=== PATIENT | male | born 1965 | race Caucasian/White ===

== ENCOUNTER 2017-12-31 09:26 | Emergency (ER) | payer SELFPAY ==
--- OUTSIDE RECORDS SUMMARY | 2017-12-31 09:38 | XMS REPORT | Clinical Summary ---
:1965 Author Organization [facility] Address [address] [place] [address] Phone Care Team Providers Name Role Phone Unavailable Primary Care Provider Unavailable Allergies No Known Allergies Current Medications Prescription Sig. Disp. Refills Start Date End Date Status methadone Take 120 mg by Active (DOLOPHINE) 10 MG mouth daily. tabletIndications: Opioid Withdrawal Symptoms aspirin 81 MG Take 81 mg by Active chewable tablet mouth daily. ranitidine (ZANTAC) Take 150 mg by Active 150 MG tablet mouth 2 (two) times daily. atorvastatin Take 1 tablet 30 tablet 11 04/08/2017 Active (LIPITOR) 80 MG (80 mg total) 8 tablet by mouth daily. carvedilol (COREG) Take 1 tablet 60 tablet 04/07/2017 Active 6.25 MG tablet (6.25 mg 8 total) by mouth 2 (two) times daily with breakfast and dinner. lisinopril Take 1 tablet 30 tablet 11 04/08/2017 Active (PRINIVIL,ZESTRIL) (2.5 mg total) 8 2.5 MG tablet by mouth daily. spironolactone Take 1 tablet 30 tablet 11 04/08/2017 Active (ALDACTONE) 25 MG (25 mg total) 8 tablet by mouth daily. clopidogrel (PLAVIX) Take 1 tablet 30 tablet 04/07/2017 Active 75 mg tablet (75 mg total) 8 by mouth daily. furosemide (LASIX) Take 1 tablet 30 tablet 11 04/08/2017 Discontinued 20 MG tablet (20 mg total) 7 by mouth daily. docusate sodium Take 1 capsule 60 capsule 0 04/16/2017 (COLACE) 100 MG (100 mg total) 8 capsule by mouth 2 (two) times daily for 30 days. polyethylene glycol Take 17 g by 255 g 0 04/16/2017 (GLYCOLAX) 17 mouth daily 7 gram/dose powder for 3 days. furosemide (LASIX) Take 2 tablets 60 tablet 2 04/17/2017 20 MG tablet (40 mg total) 8 by mouth daily for 30 days. 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[facility]) 04/04/2017 GERD (gastroesophageal reflux disease) 04/04/2017 Chronic combined systolic and diastolic CHF (congestive heart failure) 2016 ([facility]) Resolved Problems Problem Noted Date Resolved Date Cardiogenic shock ([facility]) 04/04/2017 04/16/2017 Encounters Date Type Specialty Care Team Description 04/16/2017 Office Visit Cardiology John Hankins, 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) ([facility]) (Primary Dx) 04/04/2017 - Hospital Encounter Cardiology Blayne Soto, ST elevation 04/07/2017 myocardial infarction involving left anterior descending (LAD) coronary artery ([facility]);Cardiogenic shock ([facility]);Hypotension, unspecified hypotension type;Coronary artery disease involving [place] heart with angina pectoris and documented spasm, unspecified vessel or lesion type ([facility]);SOB (shortness of breath);Chest pain due to myocardial ischemia, unspecified ischemic chest pain type;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[facility]) 04/04/2017 Orders Only General Internal Medicine 04/04/2017 Procedure Pass 04/04/2017 Surgery Blayne Soto L CATH & PCI MD after 12/30/2016 Family History Medical History Relation Name Comments Cancer Maternal Aunt Cancer Mother Relation Name Status Comments Maternal Aunt Mother Social History Tobacco Use Types Packs/Day Years Used Date Current Every Day Smoker Smokeless Tobacco: Former User Tobacco Cessation: Ready to Quit: Yes; Counseling Given: Yes Alcohol Use Drinks/Week oz/Week Comments No Sex Assigned at Date Recorded Not on file Last Filed Vital Signs Vital Sign Reading Time Taken Blood Pressure 104/69 04/16/2017 1:45 PM CLERICAL METHODS ANALYST Pulse 66 04/16/2017 1:45 PM CLERICAL METHODS ANALYST Temperature 36.9 C (98.5 F) 04/16/2017 1:45 PM CLERICAL METHODS ANALYST Respiratory Rate 16 04/16/2017 1:45 PM CLERICAL METHODS ANALYST Oxygen Saturation 100% 04/16/2017 1:45 PM CLERICAL METHODS ANALYST Inhaled Oxygen Concentration - - Weight 83.3 kg (183 lb 11.2 oz) 04/16/2017 1:45 PM CLERICAL METHODS ANALYST Height 182.9 cm (6') 04/16/2017 1:45 PM CLERICAL METHODS ANALYST Body Mass Index 24.91 04/16/2017 1:45 PM CLERICAL METHODS ANALYST Plan of Treatment Health Maintenance Due Date Last Done Comments INFLUENZA VACCINE 02/03/2018 Implants Implanted Type Area Hat Band Attacher Device Identifier Expiration Model / Date Serial / Lot Promus Premier Stents- N/A: [place] [id number] 12/11/2017 [id number] / Implanted: Qty: 1 on 04/04/2017 by Blayne Soto MD Coronar Coronary SCIENTIFIC / y [id number] Procedures Procedure Name Priority Date/Time Associated Diagnosis Comments L CATH & PCI 04/04/2017 10:20 AM CLERICAL METHODS ANALYST cp after 12/30/2016 Results EKG-SCANNED (06/17/2017 11:20 AM)Only the most recent of2 resultswithin the time period is included.B N P (04/16/2017 2:59 PM)Only the most recent of2 resultswithin the time period is included. Component Value Ref Range BNP 497 (H) 0 - 100 pg/mL Specimen Performing Laboratory Blood [address] [address] Magnesium (04/16/2017 2:59 PM)Only the most recent of6 resultswithin the time period is included. Component Value Ref Range Magnesium 1.8 1.6 - 2.6 mg/dL Specimen Performing Laboratory Blood [address] [address] Basic Metabolic Panel (04/16/2017 2:59 PM)Only the most recent of3 resultswithin the time period is included. Component Value Ref Range Sodium 137 136 - 145 meq/L Potassium 4.0 3.5 - 5.1 meq/L Chloride 101 98 - 107 meq/L CO2 28 22 - 29 meq/L BUN 15 7 - 21 mg/dL Creatinine 1.08 0.57 - 1.25 mg/dL Glucose 81 70 - 105 mg/dL Calcium 9.7 8.4 - 10.2 mg/dL EGFR 72Comment: ESTIMATED GFR IS NOT ACCURATE mL/min/1.73 sq m CREATININE CLEARANCE IN PREDICTING GLOMERULAR FILTRATION RATE. ESTIMATED GFR IS NOT APPLICABLE FOR DIALYSIS PATIENTS. Specimen Performing Laboratory Blood [facility] [address] [address] VASCULAR DIAGRAM -SCAN (04/10/2017 2:22 PM)Only the most recent of2 resultswithin the time period is included.RHYTHM STRIP - SCAN (04/09/2017 9:20 AM)CARDIAC CATH REPORT - SCAN (04/08/2017 8:30 PM)ECG 12 lead (04/07/2017 6: 56 AM)Only the most recent of4 resultswithin the time period is included. Specimen Performing Laboratory GE MUSE Narrative Ventricular Rate 77 BPM Atrial Rate 77 BPM P-R Interval 182 ms QRS Duration 90 ms Q-T Interval 440 ms QTC Calculation(Bazett) 497 ms P Jackson 56 degrees R Jackson 46 degrees T Jackson 122 degrees Sinus rhythm with Premature atrial complexes Low voltage QRS Cannot rule out Anteroseptal infarct (cited on or before 05-APR-2017) T wave abnormality, consider lateral ischemia Abnormal ECG When compared with ECG of 06-APR-2017 05:27, Serial changes of Anteroseptal infarct Present Confirmed by Chester Smith Alireaz ([id number]) on 04/09/2017 5:56:42 PM Procedure Note Interface, External Ris In - 04/09/2017 5:56 PM CLERICAL METHODS ANALYST Ventricular Rate 77 BPM Atrial Rate 77 BPM P-R Interval 182 ms QRS Duration 90 ms Q-T Interval 440 ms QTC Calculation(Bazett) 497 ms P Jackson 56 degrees R Jackson 46 degrees T Jackson 122 degrees Sinus rhythm with Premature atrial complexes Low voltage QRS Cannot rule out Anteroseptal infarct (cited on or before 05-APR-2017) T wave abnormality, consider lateral ischemia Abnormal ECG When compared with ECG of 06-APR-2017 05:27, Serial changes of Anteroseptal infarct Present Confirmed by Chester Smith Alireaz ([id number]) on 04/09/2017 5:56:42 PM Troponin I (04/07/2017 3:44 AM)Only the most recent of5 resultswithin the time period is included. Component Value Ref Range Troponin I 3.39 (HH) 0.00 - 0.03 ng/mL Specimen Performing Laboratory Blood - Arm, [address] [address] Narrative Troponin I (TnI) levels must be interpreted in the context of the presenting symptoms and the clinical findings. Elevated TnI levels indicate myocardial damage, but are not specific for ischemic heart disease. Elevated TnI levels are seen in patients with other cardiac conditions (including myocarditis and congestive heart failure), and slight TnI elevations occur in patients with other conditions, including sepsis, renal failure, acidosis, acute neurological disease, and persistent tachyarrhythmia. CBC (Hemogram only) (04/07/2017 3:44 AM)Only the most recent of2 resultswithin the time period is included. Component Value Ref Range WBC 12.6 (H) 3.5 - 10.5 K/L RBC 3.85 (L) 4.63 - 6.08 M/L Hemoglobin 10.9 (L) 13.7 - 17.5 GM/DL Hematocrit 34.2 (L) 40.1 - 51.0 % MCV 88.8 79.0 - 92.2 fL MCH 28.3 25.7 - 32.2 pg MCHC 31.9 (L) 32.3 - 36.5 GM/DL RDW 15.5 (H) 11.6 - 14.4 % Platelets 276 150 - 450 K/CU MM MPV 10.9 9.4 - 12.4 fL nRBC 0 0 - 0 /100 WBC Specimen Performing Laboratory Blood - Arm, [address] [address] ECHOCARDIOGRAM REPORT - SCAN (04/05/2017 11:51 AM)Only the most recent of2 resultswithin the time period is included.Echo w contrast limited study (2016 9:37 AM) Component Value Ref Range Ejection Fraction Specimen Performing Laboratory [facility] ECHO HEARTLAB MKCKESSON CPACS Narrative Transthoracic Echocardiography Report (TTE) Demographics Patient NameANAHY PONCE Date of Study 04/05/2017 Visit [id number] Unknown Room Number 6108 Number Date of 1965Referring Physician Blayne Soto MD 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 Clinical History Hypertension HGB 9.5 HCT 30.1 % Contrast Medium: Definity. Amount - 3 ml Height: 72 inches Weight: 88.45 kg (195 lbs) BSA: 2.11 m^2 BMI: 26.45 kg/m^2 HR: 92 bpm BP: 134/77 mmHg Summary Limited 2D exam (no Doppler) to address study indication (LV thrombus). Full study was done on 04-04-17. 1. The left ventricle is chamber size (by vol index) is normal. No evidence of LV hypertrophy. Regional wall motion abnormalities corresponding to proximal LAD disease. No thrombus is visualized. Global LV systolic function moderately reduced. LVEF by Soto's method of disk assessment is moderately reduced (35-39%). LA size is moderately enlarged (42-48 ml/m2). 2. The right ventricular chamber size and systolic function are within normal limits. RA cavity size is normal. Unable to estimate peak systolic PA pressure. Previous Study Compared to the previous study there was no significant change. Signature Findings Left Ventricle Limited 2D exam (no Doppler) to address study indication (LV thrombus). Full study was done on 04-04-17. No evidence of LV hypertrophy. LV endocardium is adequately visualized with IV ultrasound enhancing agent. The following segment(s) appear akinetic : apex, all apical, mid anterior and antro- septal. All other segments contract normally. No thrombus is visualized. Global LV systolic function moderately reduced. LVEF by Soto's method of disk assessment is moderately reduced (35-39%). The LVEF was measured using Soto's bi-plane method of disk . The left ventricle is chamber size (by vol index) is normal (male - LVED vol - 34-74ml/m2). Left AtriumLA size is moderately enlarged (42-48 ml/m2 ) . Right VentricleThe right ventricular chamber size and systolic function are within normal limits. Right Atrium RA cavity size is normal . Aortic Valve Normal AoV structure. Mitral Valve Mild MV leaflet thickening. Tricuspid ValveTV is not well visualized; likely normal based on available views. Unable to estimate peak systolic PA pressure. Pulmonic Valve PV is not well visualized. AortaAortic root size (SInus of Valsalva diameter) is normal . PericardiumNo pericardial effusion is visualized based on limited views. IVC/SVC/PA/PV/PleuralThe inferior vena cava is not visualized. The estimated RA pressure by IVC dynamics indeterminate . Chambers/Structures Left Atrium LA Volume: 99.75 ml LA Area: 27.53 cm^ 2 LA Vol. 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 Clinical History Hypertension HGB 9.5 HCT 30.1 % Contrast Medium: Definity. Amount - 3 ml Height: 72 inches Weight: 88.45 kg (195 lbs) BSA: 2.11 m^2 BMI: 26.45 kg/m^2 HR: 92 bpm BP: 134/77 mmHg Summary Limited 2D exam (no Doppler) to address study indication (LV thrombus). Full study was done on 04-04-17. 1. The left ventricle is chamber size (by vol index) is normal. No evidence of LV hypertrophy. Regional wall motion abnormalities corresponding to proximal LAD disease. No thrombus is visualized. Global LV systolic function moderately reduced. LVEF by Soto's method of disk assessment is moderately reduced (35-39%). LA size is moderately enlarged (42-48 ml/m2). 2. The right ventricular chamber size and systolic function are within normal limits. RA cavity size is normal. Unable to estimate peak systolic PA pressure. Previous Study Compared to the previous study there was no significant change. Signature Findings Left Ventricle Limited 2D exam (no Doppler) to address study indication (LV thrombus). Full study was done on 04-04-17. No evidence of LV hypertrophy. LV endocardium is adequately visualized with IV ultrasound enhancing agent. The following segment(s) appear akinetic : apex, all apical, mid anterior and antro- septal. All other segments contract normally. No thrombus is visualized. Global LV systolic function moderately reduced. LVEF by Soto's method of disk assessment is moderately reduced (35-39%). The LVEF was measured using Soto's bi-plane method of disk . The left ventricle is chamber size (by vol index) is normal (male - LVED vol - 34-74ml/m2). Left Atrium LA size is moderately enlarged (42-48 ml/m2) . Right Ventricle The right ventricular chamber size and systolic function are within normal limits. Right Atrium RA cavity size is normal . Aortic Valve Normal AoV structure. Mitral Valve Mild MV leaflet thickening. Tricuspid Valve TV is not well visualized; likely normal based on available views. Unable to estimate peak systolic PA pressure. Pulmonic Valve PV is not well visualized. Aorta Aortic root size (SInus of Valsalva diameter) is normal . Pericardium No pericardial effusion is visualized based on limited views. IVC/SVC/PA/PV/Pleural The inferior vena cava is not visualized. The estimated RA pressure by IVC dynamics indeterminate . Chambers/Structures Left Atrium LA Volume: 99.75 ml LA Area: 27.53 cm^2 LA Vol. Index: 47 ml/m^2 Left Ventricle LV Septum Diastolic: 1.06 cm LV PW Diastolic: 1.04 cm LVEDV Soto's:129.41 ml LVESV Soto's:80.53 ml LVEF Soto's: 37.8 % LVEDVI: 61 ml/m^2 LVESVI: 38 ml/m^2 Aorta Ao Root S of [place].: 3.29 cm Comprehensive metabolic panel (04/05/2017 4:42 AM)Only the most recent of2 resultswithin the time period is included. Component Value Ref Range Protein, Total 6.9 6.0 - 8.3 gm/dL Albumin 3.5 3.5 - 5.0 g/dL Alkaline Phosphatase 118 40 - 150 U/L Total Bilirubin 0.8 0.2 - 1.2 mg/dL Sodium 138 136 - 145 meq/L Potassium 3.9 3.5 - 5.1 meq/L Chloride 107 98 - 107 meq/L CO2 23 22 - 29 meq/L BUN 17 7 - 21 mg/dL Creatinine 0.80 0.57 - 1.25 mg/dL Glucose 108 (H) 70 - 105 mg/dL Calcium 8.8 8.4 - 10.2 mg/dL AST 45 (H) 5 - 34 U/L ALT 17 6 - 55 U/L EGFR 102Comment: ESTIMATED GFR IS NOT ACCURATE mL/min/1.73 sq m CREATININE CLEARANCE IN PREDICTING GLOMERULAR FILTRATION RATE. ESTIMATED GFR IS NOT APPLICABLE FOR DIALYSIS PATIENTS. Specimen Performing Laboratory Blood [facility] [address] [address] XR chest 1 view portable / bedside (04/05/2017 4:41 AM)Only the most recent of2 resultswithin the time period is included. Specimen Performing Laboratory GE RIS Narrative FINAL REPORT RAD, CHEST, 1 VIEW, NON DEPT INDICATION: IABP COMPARISON: Prior day's exam FINDINGS: Portable frontal view of the chest. IMPRESSION: Support Lines: Stable positioning of intra-aortic balloon pump marker projecting over the aortic arch. Lungs and pleura: Congestive interstitial changes, right greater than left, are stable. No new effusion. No pneumothorax. Heart and mediastinum: No interval change in the appearance of the mediastinal contours. Additional findings: None. Signed: JR Fuentes Robert MD Report Verified Date/Time:04/05/2017 05:07:01 Reading Location: [facility] C013Y CT Body Reading Room Procedure Note Interface, External Ris In - 04/05/2017 5:11 AM CLERICAL METHODS ANALYST FINAL REPORT RAD, CHEST, 1 VIEW, NON DEPT INDICATION: IABP COMPARISON: Prior day's exam FINDINGS: Portable frontal view of the chest. IMPRESSION: Support Lines: Stable positioning of intra-aortic balloon pump marker projecting over the aortic arch. Lungs and pleura: Congestive interstitial changes, right greater than left, are stable. No new effusion. No pneumothorax. Heart and mediastinum: No interval change in the appearance of the mediastinal contours. Additional findings: None. Signed: JR Fuentes Robert MD Report Verified Date/Time: 04/05/2017 05:07:01 Reading Location: [facility] C013Y CT Body Reading Room Iron, TIBC, % sat. (without ferritin) (04/05/2017 3:26 AM) Component Value Ref Range Iron 16 (L) 40 - 160 ug/dL TIBC 223 (L) 250 - 450 ug/dL Iron % Saturation 7 (L) 20 - 55 % Specimen Performing Laboratory Blood [facility] [address] [place] [address] CBC with platelet count + automated diff (04/05/2017 3:26 AM)Only the most recent of2 resultswithin the time period is included. Component Value Ref Range WBC 13.4 (H) 3.5 - 10.5 K/L RBC 3.33 (L) 4.63 - 6.08 M/L Hemoglobin 9.5 (L) 13.7 - 17.5 GM/DL Hematocrit 30.1 (L) 40.1 - 51.0 % MCV 90.4 79.0 - 92.2 fL MCH 28.5 25.7 - 32.2 pg MCHC 31.6 (L) 32.3 - 36.5 GM/DL RDW 15.7 (H) 11.6 - 14.4 % Platelets 252 150 - 450 K/CU MM MPV 11.3 9.4 - 12.4 fL nRBC 0 0 - 0 /100 WBC % Neutros 86 % % Lymphs 8 % % Monos 5 % % Eos 0 % % Baso 0 % # Neutros 11.52 (H) 1.78 - 5.38 K/L # Lymphs 1.07 (L) 1.32 - 3.57 K/L # Monos 0.63 0.30 - 0.82 K/L # Eos 0.06 0.04 - 0.54 K/L # Baso 0.06 0.01 - 0.08 K/L Immature Granulocytes-Relative 0 0 - 1 % Specimen Performing Laboratory Blood [address] [address] CBC with platelet count + automated diff (04/05/2017 3:26 AM)Only the most recent of2 resultswithin the time period is included. Specimen Performing Laboratory Blood Narrative The following orders were created for panel order CBC with platelet count + automated diff. Procedure Abnormality Status --------- ------ CBC with platelet count ...[[id number]]AbnormalFinal result Please view results for these tests on the individual orders. Ferritin (04/05/2017 3:26 AM) Component Value Ref Range Ferritin 141 5 - 275 ng/mL Specimen Performing Laboratory Blood [address] [address] Creatine Kinase (CK), Total and MB (04/05/2017 3:26 AM)Only the most recent of3 resultswithin the time period is included. Component Value Ref Range Total CK 228 (H) 29 - 200 U/L CK-MB 18.7 (H) 0.0 - 6.6 ng/mL MB Relative Index 8.2 % Specimen Performing Laboratory Blood [facility] [address] [address] Narrative CK-MB Reference Range: <6.7Normal 6.7-10.0Borderline >10.0 Abnormal Transthoracic 2D echo w/ doppler (cw/pw/color) (04/04/2017 11:45 AM) Component Value Ref Range Ejection Fraction Specimen Performing Laboratory [facility] ECHO HEARTLAB MKCKESSON CPACS Narrative Transthoracic Echocardiography Report (TTE) Demographics Patient Name ANAHY PONCE Date of Study 04/04/2017 [id number] Male Visit Number [id number] Accession Number [id number] Room Number SCLP Date of Birth1965Referring Physician Blayne Soto MD Age51 year(s)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 Clinical History HTN HGB 10.5 HCT 33.8 % Height: 72 inches Weight: 88.45 kg (195 lbs) BSA: 2.11 m^2 BMI: 26.45 kg/m^2 HR: 74 bpm BP: 128/66 mmHg Summary Global LV systolic function moderately reduced . The following segment(s) appear akinetic: all apical segments, mid septum. No evidence of LV hypertrophy. Aryt-wp-[id number] mitral regurgitation. LA size is severely enlarged (>48 ml/m2) . Estimated peak systolic PA pressure is 35-40 mmHg . The estimated RA pressure by IVC dynamics 5-10mmHg . Previous Study No prior exam available for comparison. Signature Findings Left Ventricle The left ventricle is chamber size (by PSLAX dimension) is normal (male - LVIDd 4.2-5.8cm) . No evidence of LV hypertrophy. The following segment(s) appear akinetic: all apical segments, mid septum. . The other segments contract normally. Global LV systolic function moderately reduced . Estimated LVEF by qualitative assessment is moderately reduced (35-39%) . Left AtriumLA size is severely enlarged (>48 ml/m2) . Right VentricleNormal right ventricle structure and function. Right Atrium Normal right atrium. Aortic Valve Normal AoV structure. Mitral Valve Mild MV leaflet thickening. Kkvx-cg-emrfofnm mitral regurgitation. Tricuspid ValveA trace of tricuspid regurgitation. Estimated peak systolic PA pressure is 35-40 mmHg . Pulmonic Valve Normal PV structure appears normal by available views. A trace of pulmonary regurgitation. AortaAortic root size (SInus of Valsalva diameter) is normal . PericardiumNo evidence of pericardial effusion. IVC/SVC/PA/PV/PleuralThe estimated RA pressure by IVC dynamics 5-10mmHg . Chambers/Structures Left Atrium LA Dimension: 4.27 cmLA Area: 30.82 cm^2 LA Volume: 124 ml LA Vol. Index: 59 ml/m^2 Left Ventricle LVIDd: 4.79 cm LV Septum Diastolic: 1.07 cm LV PW Diastolic: 1 cm LVOT Diameter: 2.05 cm Aorta Ao Root S of Caroline.: 3.23 cm Doppler/Quantitative Measurements LVOT Peak Velocity: 0.87 m/s Peak Gradient: 3.01 mmHg Mean Velocity: 0.54 m/s Mean Gradient: 1.4 mmHg LVOT Diameter: 2.05 cmLVOT VTI: 14.49 cm LVOT Area: 3.3 cm^2 LVOT SV:47.8 ml LVOT CO: 3.54 l/min LVOT CI: 1.68 l/min/m^2 Procedure Note Interface, External Ris In - 04/04/2017 3:47 PM CLERICAL METHODS ANALYST Transthoracic Echocardiography Report (TTE) Demographics Patient Name ANAHY PONCE Date of Study 04/04/2017 Gender Male Visit Number [id number] Race Unknown Accession Number [id number] Room Number SCLP Date of 1965 Referring Physician Blayne Soto MD 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 Clinical History HTN HGB 10.5 HCT 33.8 % Height: 72 inches Weight: 88.45 kg (195 lbs) BSA: 2.11 m^2 BMI: 26.45 kg/m^2 HR: 74 bpm BP: 128/66 mmHg Summary Global LV systolic function moderately reduced . The following segment(s) appear akinetic: all apical segments, mid septum. No evidence of LV hypertrophy. Txks-fe-wznmdzmc mitral regurgitation. LA size is severely enlarged (>48 ml/m2) . Estimated peak systolic PA pressure is 35-40 mmHg . The estimated RA pressure by IVC dynamics 5-10mmHg . Previous Study No prior exam available for comparison. Signature Findings Left Ventricle The left ventricle is chamber size (by PSLAX dimension) is normal (male - LVIDd 4.2-5.8cm) . No evidence of LV hypertrophy. The following segment(s) appear akinetic: all apical segments, mid septum. . The other segments contract normally. Global LV systolic function moderately reduced . Estimated LVEF by qualitative assessment is moderately reduced (35-39%) . Left Atrium LA size is severely enlarged (>48 ml/m2) . Right Ventricle Normal right ventricle structure and function. Right Atrium Normal right atrium. Aortic Valve Normal AoV structure. Mitral Valve Mild MV leaflet thickening. Mfkg-jl-balgsolj mitral regurgitation. Tricuspid Valve A trace of tricuspid regurgitation. Estimated peak systolic PA pressure is 35-40 mmHg . Pulmonic Valve Normal PV structure appears normal by available views. A trace of pulmonary regurgitation. Aorta Aortic root size (SInus of Valsalva diameter) is normal . Pericardium No evidence of pericardial effusion. IVC/SVC/PA/PV/Pleural The estimated RA pressure by IVC dynamics 5-10mmHg . Chambers/Structures Left Atrium LA Dimension: 4.27 cm LA Area: 30.82 cm^2 LA Volume: 124 ml LA Vol. Index: 59 ml/m^2 Left Ventricle LVIDd: 4.79 cm LV Septum Diastolic: 1.07 cm LV PW Diastolic: 1 cm LVOT Diameter: 2.05 cm Aorta Ao Root S of Caroline.: 3.23 cm Doppler/Quantitative Measurements LVOT Peak Velocity: 0.87 m/s Peak Gradient: 3.01 mmHg Mean Velocity: 0.54 m/s Mean Gradient: 1.4 mmHg LVOT Diameter: 2.05 cm LVOT VTI: 14.49 cm LVOT Area: 3.3 cm^2 LVOT SV:47.8 ml LVOT CO: 3.54 l/min LVOT CI: 1.68 l/min/m^2 Phosphorus (04/04/2017 11:09 AM) Component Value Ref Range Phosphorus 2.2 (L) 2.3 - 4.7 mg/dL Specimen Performing Laboratory Blood - Arm, [address] [address] Lipid panel (04/04/2017 11:09 AM) Component Value Ref Range Triglycerides 59 mg/dL Cholesterol 215 mg/dL HDL 30 mg/dL LDL Calculated 173 mg/dL Specimen Performing Laboratory Blood - Arm, [address] [address] Narrative Triglyceride Reference Range: Low Risk <150 Wjnksldrhu679-909 High Risk 200-499 Very High Risk>=500 Cholesterol Reference Range: Low Risk <200 Dfrpccwfyq630-058 High Risk>240 HDL Cholesterol Reference Range: Low Risk >=60 High Risk <40 LDL Cholesterol Reference Range: Optimal<100 Near Iuyiukm387-164 Yjfefpckbm079-444 Raww351-619 Very High >=190 aPTT (04/04/2017 11:07 AM) Component Value Ref Range PTT 165.8 (HH) 22.5 - 36.0 seconds Specimen Performing Laboratory Blood [address] [address] Prothrombin time/INR (04/04/2017 11:07 AM) Component Value Ref Range Protime 16.0 (H) 11.7 - 14.7 seconds INR 1.3 <=5.9 Specimen Performing Laboratory Blood [address] [address] Narrative RECOMMENDED COUMADIN/WARFARIN INR THERAPY RANGES STANDARD DOSE: 2.0 - 3.0 Includes: PROPHYLAXIS for venous thrombosis, systemic embolization; TREATMENT for venous thrombosis and/or pulmonary embolus. HIGH RISK: Target INR is 2.5-3.5 for patients with mechanical heart valves. Hemoglobin A1c (04/04/2017 11:07 AM) Component Value Ref Range Hemoglobin A1C 5.3 4.3 - 6.1 % Specimen Performing Laboratory Blood [facility] [address] [place] [address] POC ACTIVATED CLOTTING TIME (04/04/2017 9:59 AM)Only the most recent of2 resultswithin the time period is included. Component Value Ref Range Activated Clotting Time 197Comment: TESTED AT [address] [place] [id number] Specimen Performing Laboratory Blood [address] [address] after 12/30/2016
--- OUTSIDE RECORDS SUMMARY | 2017-12-31 09:38 | XMS REPORT ---
:1965 [facility] Address [address] [place] [address] Care Team Providers Name Role Phone NENO CHRISSY Unavailable Unavailable RIGOBERTO DIXON Unavailable Unavailable Problems This patient has no known problems. Allergies, Adverse Reactions, Alerts This patient has no known allergies or adverse reactions. Medications This patient has no known medications. Results Test Description Test Time Test Comments Text Results Atomic Results Result Comments B-TYPE NATRIURETIC FACTOR (BNP) 2017-04-16 16:37:00 Test Item Value Reference Range Comments B-TYPE NATRIURETIC PEPTIDE (BEAKER) (test hudh=138) 497 pg/mL 0-100 [id number] 15:20:00 Test Item Value Reference Range Comments MAGNESIUM (BEAKER) (test yabb=710) 1.8 mg/dL 1.6-2.6 BASIC METABOLIC [id number] 15:20:00 Test Item Value Reference Range Comments SODIUM (BEAKER) (test 137 meq/L 136-145 szxi=661) POTASSIUM (BEAKER) (test 4.0 meq/L 3.5-5.1 eprh=769) CHLORIDE (BEAKER) (test 101 meq/L 98-107 emap=744) CO2 (BEAKER) (test 28 meq/L 22-29 ekut=284) BLOOD UREA NITROGEN 15 mg/dL 7-21 (BEAKER) (test ioim=220) CREATININE (BEAKER) (test 1.08 mg/dL 0.57-1.25 wzso=733) GLUCOSE RANDOM (BEAKER) 81 mg/dL 70-105 (test msjh=150) CALCIUM (BEAKER) (test 9.7 mg/dL 8.4-10.2 ueyu=606) EGFR (BEAKER) (test 72 mL/min/1.73 sq m ESTIMATED GFR IS NOT xiew=3961) ACCURATE CREATININE CLEARANCE IN PREDICTING GLOMERULAR FILTRATION RATE. ESTIMATED GFR IS NOT APPLICABLE FOR DIALYSIS PATIENTS. TROPONIN [id number] 04:40:00 Test Item Value Reference Range Comments TROPONIN I (BEAKER) (test gygh=137) 3.39 ng/mL 0.00-0.03 Troponin I (TnI) levels must be interpreted [...] failure, acidosis, acute neurological disease, and persistent tachyarrhythmia.[id number] 04:23:00 Test Item Value Reference Range Comments MAGNESIUM (BEAKER) (test pjxk=051) 2.2 mg/dL 1.6-2.6 BASIC METABOLIC [id number] 04:23:00 Test Item Value Reference Range Comments SODIUM (BEAKER) (test 138 meq/L 136-145 rrcl=488) POTASSIUM (BEAKER) (test 3.7 meq/L 3.5-5.1 axtx=771) CHLORIDE (BEAKER) (test 105 meq/L 98-107 lpze=338) CO2 (BEAKER) (test 21 meq/L 22-29 jxxk=969) BLOOD UREA NITROGEN 35 mg/dL 7-21 (BEAKER) (test wayu=076) CREATININE (BEAKER) (test 1.11 mg/dL 0.57-1.25 xkkz=509) GLUCOSE RANDOM (BEAKER) 86 mg/dL 70-105 (test vjfm=225) CALCIUM (BEAKER) (test 9.3 mg/dL 8.4-10.2 viyp=734) EGFR (BEAKER) (test 70 mL/min/1.73 sq m ESTIMATED GFR IS NOT qxwh=6237) ACCURATE CREATININE CLEARANCE IN PREDICTING GLOMERULAR FILTRATION RATE. ESTIMATED GFR IS NOT APPLICABLE FOR DIALYSIS PATIENTS. CBC (HEMOGRAM ONLY)2017-04-07 04:00:00 Test Item Value Reference Range Comments WHITE BLOOD CELL COUNT (BEAKER) (test vykd=177) 12.6 K/ L 3.5-10.5 RED BLOOD CELL COUNT (BEAKER) (test zlud=643) 3.85 M/ L 4.63-6.08 HEMOGLOBIN (BEAKER) (test rued=296) 10.9 GM/DL 13.7-17.5 HEMATOCRIT (BEAKER) (test tfsm=553) 34.2 % 40.1-51.0 MEAN CORPUSCULAR VOLUME (BEAKER) (test oinb=618) 88.8 fL 79.0-92.2 MEAN CORPUSCULAR HEMOGLOBIN (BEAKER) (test 28.3 pg 25.7-32.2 tcty=964) MEAN CORPUSCULAR HEMOGLOBIN CONC (BEAKER) (test 31.9 GM/DL 32.3-36.5 aovc=338) RED CELL DISTRIBUTION WIDTH (BEAKER) (test 15.5 % 11.6-14.4 edmt=615) PLATELET COUNT (BEAKER) (test tfno=990) 276 K/CU MM 150-450 MEAN PLATELET VOLUME (BEAKER) (test ovzi=558) 10.9 fL 9.4-12.4 NUCLEATED RED BLOOD CELLS (BEAKER) (test 0 /100 WBC 0-0 bcdq=797) TROPONIN [id number] 11:34:00 Test Item Value Reference Range Comments TROPONIN I (BEAKER) (test zius=885) 4.01 ng/mL 0.00-0.03 Troponin I (TnI) levels must be interpreted [...] failure, acidosis, acute neurological disease, and persistent tachyarrhythmia.[id number] 06:25:00 Test Item Value Reference Range Comments MAGNESIUM (BEAKER) (test vyjz=288) 2.0 mg/dL 1.6-2.6 BASIC METABOLIC [id number] 06:25:00 Test Item Value Reference Range Comments SODIUM (BEAKER) (test 139 meq/L 136-145 nzjf=616) POTASSIUM (BEAKER) (test 3.7 meq/L 3.5-5.1 zogh=009) CHLORIDE (BEAKER) (test 106 meq/L 98-107 kdjh=919) CO2 (BEAKER) (test 21 meq/L 22-29 dhre=484) BLOOD UREA NITROGEN 22 mg/dL 7-21 (BEAKER) (test mjde=755) CREATININE (BEAKER) (test 0.91 mg/dL 0.57-1.25 nnmn=152) GLUCOSE RANDOM (BEAKER) 81 mg/dL 70-105 (test bkgd=118) CALCIUM (BEAKER) (test 9.5 mg/dL 8.4-10.2 hofl=302) EGFR (BEAKER) (test 88 mL/min/1.73 sq m ESTIMATED GFR IS NOT sbby=8673) ACCURATE CREATININE CLEARANCE IN PREDICTING GLOMERULAR FILTRATION RATE. ESTIMATED GFR IS NOT APPLICABLE FOR DIALYSIS PATIENTS. CBC (HEMOGRAM ONLY)2017-04-06 05:46:00 Test Item Value Reference Range Comments WHITE BLOOD CELL COUNT (BEAKER) (test ptjc=105) 15.7 K/ L 3.5-10.5 RED BLOOD CELL COUNT (BEAKER) (test lvhs=986) 4.09 M/ L 4.63-6.08 HEMOGLOBIN (BEAKER) (test ykdu=042) 11.6 GM/DL 13.7-17.5 HEMATOCRIT (BEAKER) (test sblz=066) 37.0 % 40.1-51.0 MEAN CORPUSCULAR VOLUME (BEAKER) (test rsbp=770) 90.5 fL 79.0-92.2 MEAN CORPUSCULAR HEMOGLOBIN (BEAKER) (test 28.4 pg 25.7-32.2 ufqo=454) MEAN CORPUSCULAR HEMOGLOBIN CONC (BEAKER) (test 31.4 GM/DL 32.3-36.5 bgio=749) RED CELL DISTRIBUTION WIDTH (BEAKER) (test 15.7 % 11.6-14.4 zxac=426) PLATELET COUNT (BEAKER) (test dksh=541) 290 K/CU MM 150-450 MEAN PLATELET VOLUME (BEAKER) (test qhli=413) 11.2 fL 9.4-12.4 NUCLEATED RED BLOOD CELLS (BEAKER) (test 0 /100 WBC 0-0 zefn=952) [id number] 07:49:00 Test Item Value Reference Range Comments MAGNESIUM (BEAKER) (test cgfs=178) 2.0 mg/dL 1.6-2.6 TROPONIN [id number] 05:48:00 Test Item Value Reference Range Comments TROPONIN I (BEAKER) (test ytvp=275) 8.11 ng/mL 0.00-0.03 Troponin I (TnI) levels must be interpreted [...] failure, acidosis, acute neurological disease, and persistent tachyarrhythmia.COMPREHENSIVE METABOLIC [id number] 05:42:00 Test Item Value Reference Range Comments TOTAL PROTEIN (BEAKER) 6.9 gm/dL 6.0-8.3 (test deyp=595) ALBUMIN (BEAKER) (test 3.5 g/dL 3.5-5.0 agyc=7940) ALKALINE PHOSPHATASE 118 U/L 40-150 (BEAKER) (test lywp=193) BILIRUBIN TOTAL (BEAKER) 0.8 mg/dL 0.2-1.2 (test iyhi=181) SODIUM (BEAKER) (test 138 meq/L 136-145 cwhq=067) POTASSIUM (BEAKER) (test 3.9 meq/L 3.5-5.1 mzpi=951) CHLORIDE (BEAKER) (test 107 meq/L 98-107 jrfm=419) CO2 (BEAKER) (test 23 meq/L 22-29 xqrr=890) BLOOD UREA NITROGEN 17 mg/dL 7-21 (BEAKER) (test nagh=322) CREATININE (BEAKER) (test 0.80 mg/dL 0.57-1.25 fxqw=126) GLUCOSE RANDOM (BEAKER) 108 mg/dL 70-105 (test qsan=276) CALCIUM (BEAKER) (test 8.8 mg/dL 8.4-10.2 iydx=685) AST (SGOT) (BEAKER) (test 45 U/L 5-34 usps=202) ALT (SGPT) (BEAKER) (test 17 U/L 6-55 qaaa=966) EGFR (BEAKER) (test 102 mL/min/1.73 sq ESTIMATED GFR IS NOT stkl=2870) m ACCURATE CREATININE CLEARANCE IN PREDICTING GLOMERULAR FILTRATION RATE. ESTIMATED GFR IS NOT APPLICABLE FOR DIALYSIS PATIENTS. RAD, CHEST, 1 VIEW, NON [id number] 05:07:00Reason for exam:->IABPFINAL REPORT RAD, CHEST, 1 VIEW, NON DEPT INDICATION: IABP COMPARISON: Prior day's exam FINDINGS: Portable frontal view of the chest. IMPRESSION: Support Lines: Stable positioning of intra-aortic balloon pump marker projecting over the aortic arch. Lungs and pleura: Congestive interstitial changes, right greater than left, are stable. No new effusion. No pneumothorax.Heart and mediastinum: No interval change in the appearance of the mediastinal contours.Additional findings:None. Signed: JR Fuentes Robert MDReport Verified Date/Time: 04/05/2017 05:07:01 Reading Location: [facility] C013Y CT Body Reading Room [id number] 04:15:00 Test Item Value Reference Range Comments FERRITIN (BEAKER) (test dyfy=413) 141 ng/mL 5-275 CREATINE KINASE (CK), TOTAL AND [id number] 04:04:00 Test Item Value Reference Range Comments CREATINE KINASE TOTAL (BEAKER) (test pasq=682) 228 U/L 29-200 CREATINE KINASE-MB (BEAKER) (test jpoe=388) 18.7 ng/mL 0.0-6.6 CREATINE KINASE-MB INDEX (BEAKER) (test ummh=314) 8.2 % CK-MB Reference Range:<6.7 Normal6.7-10.0 Borderline>10.0 AbnormalIRON, TIBC, % SAT. (WITHOUT FERRITIN)2017-04-05 04:01:00 Test Item Value Reference Range Comments IRON (BEAKER) (test jtcn=580) 16 ug/dL 40-160 TOTAL IRON BINDING CAPACITY (BEAKER) (test 223 ug/dL 250-450 vcnn=667) IRON % SATURATION (2) (BEAKER) (test bquc=6956) 7 % 20-55 [id number] 03:56:00 Test Item Value Reference Range Comments MAGNESIUM (BEAKER) (test none=393) 1.6 mg/dL 1.6-2.6 CBC W/PLT COUNT & AUTO [id number] 03:38:00 Test Item Value Reference Range Comments WHITE BLOOD CELL COUNT (BEAKER) (test rfao=646) 13.4 K/ L 3.5-10.5 RED BLOOD CELL COUNT (BEAKER) (test zcph=017) 3.33 M/ L 4.63-6.08 HEMOGLOBIN (BEAKER) (test zvpa=332) 9.5 GM/DL 13.7-17.5 HEMATOCRIT (BEAKER) (test zlba=358) 30.1 % 40.1-51.0 MEAN CORPUSCULAR VOLUME (BEAKER) (test itoy=532) 90.4 fL 79.0-92.2 MEAN CORPUSCULAR HEMOGLOBIN (BEAKER) (test 28.5 pg 25.7-32.2 wygh=165) MEAN CORPUSCULAR HEMOGLOBIN CONC (BEAKER) (test 31.6 GM/DL 32.3-36.5 sslw=923) RED CELL DISTRIBUTION WIDTH (BEAKER) (test 15.7 % 11.6-14.4 hqjw=545) PLATELET COUNT (BEAKER) (test zzka=422) 252 K/CU MM 150-450 MEAN PLATELET VOLUME (BEAKER) (test kawf=184) 11.3 fL 9.4-12.4 NUCLEATED RED BLOOD CELLS (BEAKER) (test 0 /100 WBC 0-0 erzl=382) NEUTROPHILS RELATIVE PERCENT (BEAKER) (test 86 % rmro=824) LYMPHOCYTES RELATIVE PERCENT (BEAKER) (test 8 % vauh=102) MONOCYTES RELATIVE PERCENT (BEAKER) (test 5 % pgxj=543) EOSINOPHILS RELATIVE PERCENT (BEAKER) (test 0 % uzvj=560) BASOPHILS RELATIVE PERCENT (BEAKER) (test 0 % ugku=678) NEUTROPHILS ABSOLUTE COUNT (BEAKER) (test 11.52 K/ L 1.78-5.38 xwka=466) LYMPHOCYTES ABSOLUTE COUNT (BEAKER) (test 1.07 K/ L 1.32-3.57 llxs=713) MONOCYTES ABSOLUTE COUNT (BEAKER) (test 0.63 K/ L 0.30-0.82 zlbm=568) EOSINOPHILS ABSOLUTE COUNT (BEAKER) (test 0.06 K/ L 0.04-0.54 vaik=857) BASOPHILS ABSOLUTE COUNT (BEAKER) (test 0.06 K/ L 0.01-0.08 jcdy=657) IMMATURE GRANULOCYTES-RELATIVE PERCENT (BEAKER) 0 % 0-1 (test hbnc=8006) TROPONIN [id number] 19:07:00 Test Item Value Reference Range Comments TROPONIN I (BEAKER) (test cvbf=708) 11.89 ng/mL 0.00-0.03 Troponin I (TnI) levels must be interpreted [...] failure, acidosis, acute neurological disease, and persistent tachyarrhythmia.CREATINE KINASE (CK), TOTAL AND [id number] 19:06:00 Test Item Value Reference Range Comments CREATINE KINASE TOTAL (BEAKER) (test noek=481) 485 U/L 29-200 CREATINE KINASE-MB (BEAKER) (test ezfn=150) 59.5 ng/mL 0.0-6.6 CREATINE KINASE-MB INDEX (BEAKER) (test thjh=022) 12.3 % CK-MB Reference Range:<6.7 Normal6.7-10.0 Borderline>10.0 AbnormalHEMOGLOBIN [id number] 17:50:00 Test Item Value Reference Range Comments HEMOGLOBIN A1C (BEAKER) (test rxod=069) 5.3 % 4.3-6.1 RAD, CHEST, 1 VIEW, NON [id number] 17:49:00Reason for exam:->eval for PVCShould this be performed at the bedside?->YesFINAL REPORT TECHNIQUE: Frontal chest radiograph dated 04/04/2017. CLINICAL HISTORY : Eval for PVC COMPARISON STUDY: None IMPRESSION:There are bilateral, airspace opacities in a distribution typical of pulmonary edema. Differential also includes pneumonia. A radiodense marker projects over the aortic arch at the level of T5-T6. Lungs are clear. No pleural effusion or pneumothorax. Cardiomediastinal silhouette is normal in size. No fracture. Signed: Conchita Jimenez MDReportVerified Date/Time: 04/04/2017 17:49:35 Reading Location: [facility] Radiology Reading Room TROPONIN [id number] 11:58:00 Test Item Value Reference Range Comments TROPONIN I (BEAKER) (test tbcf=996) 4.95 ng/mL 0.00-0.03 Troponin I (TnI) levels must be interpreted [...] failure, acidosis, acute neurological disease, and persistent tachyarrhythmia.CREATINE KINASE (CK), TOTAL AND [id number] 11:49:00 Test Item Value Reference Range Comments CREATINE KINASE TOTAL (BEAKER) (test oqhf=379) 332 U/L 29-200 CREATINE KINASE-MB (BEAKER) (test pyod=621) 40.7 ng/mL 0.0-6.6 CREATINE KINASE-MB INDEX (BEAKER) (test jxcy=913) 12.3 % CK-MB Reference Range:<6.7 Normal6.7-10.0 Borderline>10.0 AbnormalCBC W/PLT COUNT & AUTO [id number] 11:49:00 Test Item Value Reference Range Comments WHITE BLOOD CELL COUNT (BEAKER) (test esqh=435) 12.1 K/ L 3.5-10.5 RED BLOOD CELL COUNT (BEAKER) (test xbcw=300) 3.67 M/ L 4.63-6.08 HEMOGLOBIN (BEAKER) (test ncpx=716) 10.5 GM/DL 13.7-17.5 HEMATOCRIT (BEAKER) (test bkut=736) 33.8 % 40.1-51.0 MEAN CORPUSCULAR VOLUME (BEAKER) (test tkrx=952) 92.1 fL 79.0-92.2 MEAN CORPUSCULAR HEMOGLOBIN (BEAKER) (test 28.6 pg 25.7-32.2 tfjq=280) MEAN CORPUSCULAR HEMOGLOBIN CONC (BEAKER) (test 31.1 GM/DL 32.3-36.5 lgwy=799) RED CELL DISTRIBUTION WIDTH (BEAKER) (test 15.7 % 11.6-14.4 uhya=463) PLATELET COUNT (BEAKER) (test ggsj=975) 274 K/CU MM 150-450 MEAN PLATELET VOLUME (BEAKER) (test omiv=827) 11.3 fL 9.4-12.4 NUCLEATED RED BLOOD CELLS (BEAKER) (test 0 /100 WBC 0-0 qnjh=048) NEUTROPHILS RELATIVE PERCENT (BEAKER) (test 89 % vsbk=693) LYMPHOCYTES RELATIVE PERCENT (BEAKER) (test 8 % zbrp=212) MONOCYTES RELATIVE PERCENT (BEAKER) (test 2 % uaws=224) EOSINOPHILS RELATIVE PERCENT (BEAKER) (test 0 % tifh=510) BASOPHILS RELATIVE PERCENT (BEAKER) (test 0 % nfhw=771) NEUTROPHILS ABSOLUTE COUNT (BEAKER) (test 10.81 K/ L 1.78-5.38 hhba=042) LYMPHOCYTES ABSOLUTE COUNT (BEAKER) (test 0.92 K/ L 1.32-3.57 ubmh=513) MONOCYTES ABSOLUTE COUNT (BEAKER) (test 0.24 K/ L 0.30-0.82 gdmg=705) EOSINOPHILS ABSOLUTE COUNT (BEAKER) (test 0.02 K/ L 0.04-0.54 dixf=651) BASOPHILS ABSOLUTE COUNT (BEAKER) (test 0.04 K/ L 0.01-0.08 xvuo=071) IMMATURE GRANULOCYTES-RELATIVE PERCENT (BEAKER) 1 % 0-1 (test pdjb=1605) B-TYPE NATRIURETIC FACTOR (BNP)2017-04-04 11:48:00 Test Item Value Reference Range Comments B-TYPE NATRIURETIC PEPTIDE (BEAKER) (test 741 pg/mL 0-100 blel=607) [id number] 11:42:00 Test Item Value Reference Range Comments PHOSPHORUS (BEAKER) (test hvjw=010) 2.2 mg/dL 2.3-4.7 [id number] 11:42:00 Test Item Value Reference Range Comments MAGNESIUM (BEAKER) (test olqj=755) 2.1 mg/dL 1.6-2.6 COMPREHENSIVE METABOLIC [id number] 11:42:00 Test Item Value Reference Range Comments TOTAL PROTEIN (BEAKER) 7.4 gm/dL 6.0-8.3 (test agdw=178) ALBUMIN (BEAKER) (test 3.7 g/dL 3.5-5.0 mijh=2140) ALKALINE PHOSPHATASE 120 U/L 40-150 (BEAKER) (test naku=780) BILIRUBIN TOTAL (BEAKER) 0.4 mg/dL 0.2-1.2 (test qwpb=536) SODIUM (BEAKER) (test 137 meq/L 136-145 ijka=603) POTASSIUM (BEAKER) (test 4.7 meq/L 3.5-5.1 sxmy=712) CHLORIDE (BEAKER) (test 108 meq/L 98-107 jura=194) CO2 (BEAKER) (test 22 meq/L 22-29 rvjz=224) BLOOD UREA NITROGEN 17 mg/dL 7-21 (BEAKER) (test xsyj=674) CREATININE (BEAKER) (test 0.99 mg/dL 0.57-1.25 fajl=136) GLUCOSE RANDOM (BEAKER) 121 mg/dL 70-105 (test nejy=255) CALCIUM (BEAKER) (test 9.1 mg/dL 8.4-10.2 uorc=860) AST (SGOT) (BEAKER) (test 35 U/L 5-34 gooj=844) ALT (SGPT) (BEAKER) (test 14 U/L 6-55 ezky=965) EGFR (BEAKER) (test 80 mL/min/1.73 sq m ESTIMATED GFR IS NOT ollz=1272) ACCURATE CREATININE CLEARANCE IN PREDICTING GLOMERULAR FILTRATION RATE. ESTIMATED GFR IS NOT APPLICABLE FOR DIALYSIS PATIENTS. LIPID [id number] 11:42:00 Test Item Value Reference Range Comments TRIGLYCERIDES (BEAKER) (test zefu=664) 59 mg/dL CHOLESTEROL (BEAKER) (test ypmo=351) 215 mg/dL HDL CHOLESTEROL (BEAKER) (test ovpi=857) 30 mg/dL LDL CHOLESTEROL CALCULATED (BEAKER) (test 173 mg/dL jirv=780) Triglyceride Reference Range: Low Risk <150 Borderline 150- 199 High Risk 200-499 Very High Risk >=500Cholesterol Reference Range: Low Risk <200 Borderline 200-239 High Risk > 240HDL Cholesterol Reference Range: Low Risk >=60 High Risk <40LDL Cholesterol Reference Range: Optimal <100 Near Optimal 100-129 Borderline 130-159 High 160-189 Very High [id number] 11:31:00 Test Item Value Reference Range Comments PARTIAL THROMBOPLASTIN TIME (BEAv[employer] Systems) (test 165.8 seconds 22.5-36.0 gkjj=919) PROTHROMBIN TIME/[id number] 11:25:00 Test Item Value Reference Range Comments PROTIME ([employer]) (test xbkv=337) 16.0 seconds 11.7-14.7 [facility] (test opkd=365) 1.3 <=5.9 RECOMMENDED COUMADIN/WARFARIN INR THERAPY RANGESSTANDARD DOSE: 2.0 - 3.0 Includes: PROPHYLAXIS forvenous thrombosis, systemic embolization; TREATMENT for venous thrombosis and/or pulmonary embolus.HIGH RISK: Target INR is 2.5-3.5 for patients with mechanical heart valves.[id number] 10:07:00 Test Item Value Reference Range Comments ACTIVATED CLOTTING TIME 197 sec TESTED AT [address] ([employer]) (test ukot=588) [place] [address] [id number] 10:07:00 Test Item Value Reference Range Comments ACTIVATED CLOTTING TIME 202 sec TESTED AT [place] [address] [facility] (test zbqq=206) [place] [address]
[2017-12-31] MEDS ORDERED: KETOROLAC 30 MG/ML INJ ONE (10:36)
--- NOTE | 2017-12-31 10:49 | RAD REPORT ---
EXAM DESCRIPTION: US - EXTREMITY VENOUS [facility]I LTD - 12/31/2017 10:42 am CLINICAL HISTORY: PAIN Leg swelling and edema. COMPARISON: Extremity Venous [facility] dated 05/12/2017 FINDINGS: Left lower extremity venous system was interrogated with Doppler technique. Normal flow, c ompressibility and augmentation was noted. There is no DVT present. IMPRESSION: No evidence of left lower extremity deep venous thrombosis.
[2017-12-31 10:51] LABS: Absolute Lymphocytes (CBC) 2.1 K/uL (0.7-4.9); Absolute Monocytes 0.4 K/uL (0.1-1.3); Absolute Neutrophil 7.8 K/uL (1.8-8.0); Basophils % 0.8 % (0-1.3); Eosinophils % 1.3 % (0-4.4); Lymphocytes % 19.7 % (15.3-44.8); MCH 29.3 pg (27.0-35.0); MCV 87.1 fL (80-100); MPV 8.8 fL (7.6-11.3); RBC Red Blood Cell Count 4.37 M/uL (4.33-5.43)
[2017-12-31 10:53] LABS: Protime INR 1.07
[2017-12-31 11:32] LABS: ALT/SGPT 13 U/L (12-78); AST/SGOT 13 U/L (15-37); Albumin 3.6 g/dL (3.4-5.0); Alcohol Serum/Plasma < 3 mg/dL (<3); Alkaline Phosphatase 123 U/L (45-117); BUN Blood Urea Nitrogen 16 mg/dL (7-18); Bicarbonate 28 mmol/L (21-32); Bilirubin Direct 0.1 mg/dL (0-0.2); Bilirubin Total 0.4 mg/dL (0.2-1.0); Glucose Level 79 mg/dL (74-106); Potassium 4.2 mmol/L (3.5-5.1); Protein, Total 7.7 g/dL (6.4-8.2); Sodium Level 138 mmol/L (136-145)
--- NOTE | 2017-12-31 11:54 | ER ---
Nurse's Notes [facility] Name: Eddie Isaacs Age: 52 yrs Sex: Male : 1965 Arrival Date: 12/31/2017 Time: 09:29 Bed 8 Private MD: None, None Diagnosis: LEFT LEG PAIN Presentation: 12/31 09:31 Presenting complaint: Patient states: L lower calf pain, every time I step it hurts ch deep in that calf. it has been going on for months, I saw my doctor back in september or October for it. I start getting dizzy too. I am not working so since my Heart attack I have not taken any of my meds. My heart attack happened in October, but today I feel SOB and very dizzy, very anxious, like something is wrong. I am having thought of Suicide, I have had plans before but now I dont have one. I dont think I would ever act on it. I tried once to Kill myself many years ago. pt is tearful in triage, very restless. Transition of care: patient was not received from another setting of care. Onset of symptoms was December 23, 2017. Risk Assessment: Do you want to hurt yourself or someone else? Patient reports no desire to harm self or others. Initial Sepsis Screen: Does the patient meet any 2 criteria? No. Patient's initial sepsis screen is negative. Does the patient have a suspected source of infection? No. Patient's initial sepsis screen is negative. Care prior to arrival: None. 09:31 Method Of Arrival: Ambulatory 09:31 Acuity: DENICE 2 ch Triage Assessment: 09:34 General: Appears in no apparent distress. comfortable, Behavior is calm, cooperative, ch appropriate for age. Pain: Complains of pain in back, chest and left calf Pain currently is 8 out of 10 on a pain scale. 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 - Social history:: Smoking status: Patient uses tobacco products, smokes one pack cigarettes per day. smokes two packs cigarettes per day. Patient/guardian denies using alcohol, street drugs. - Ebola Screening: : Patient negative for fever greater than or equal to 101.5 degrees Fahrenheit, and additional compatible Ebola Virus Disease symptoms Patient denies exposure to infectious person Patient denies travel to an Ebola-affected area in the 21 days before illness onset No symptoms or risks identified at this time. Screenin:27 Abuse screen: Denies threats or abuse. Denies injuries from another. Nutritional sg screening: No deficits noted. Tuberculosis screening: No symptoms or risk factors identified. Never had TB. Fall Risk None identified. Assessment: 10:28 General: Appears in no apparent distress. comfortable, well groomed, well developed, sg well nourished, Behavior is calm, cooperative, appropriate for age. Pain: Complains of pain in left leg and left calf and chest and back and head. Neuro: Level of Consciousness is awake, alert, obeys commands, Oriented to person, place, time, situation, Moves all extremities. Full function Speech is normal, Facial symmetry appears normal. Neuro: Reports headache in entire parietal area, frontal area. Cardiovascular: Heart tones S1 S2 present Capillary refill is brisk in bilateral fingers Patient's skin is warm and dry. Chest pain is described as vague, is located in anterior chest wall. Respiratory: Reports shortness of breath at rest that is intermittent Airway is patent Respiratory effort is even, unlabored, Respiratory pattern is regular, symmetrical, Breath sounds are clear Denies cough, labored breathing. GI: Abdomen is flat, non-distended, Bowel sounds. : No signs and/or symptoms were reported regarding the genitourinary system. EENT: No signs and/or symptoms were reported regarding the EENT system. Derm: Skin is pink, warm \T\ dry. Musculoskeletal: Reports pain in left leg and back. 12:52 Reassessment: Patient appears in no apparent distress at this time. Patient and/or iw family updated on plan of care and expected duration. Pain level reassessed. Patient is alert, oriented x 3, equal unlabored respirations, skin warm/dry/pink. Vital Signs: 09:35 BP 131 / 100; Pulse 88; Resp 22; Temp 97; Pulse Ox 100% on R/A; Weight 78.02 kg; Height ch 5 ft. 11 in. (180.34 cm); Pain 9/10; 11:10 BP 138 / 90; Pulse 77; Resp 17; Pulse Ox 95% on R/A; tw2 12:40 BP 136 / 96; Pulse 68; Resp 17; Pulse Ox 95% on R/A; tw2 09:35 Body Mass Index 23.99 (78.02 kg, 180.34 cm) ED Course: 09:29 Patient arrived in ED. mr 09:30 None, None is Private Physician. mr 09:33 Triage completed. ch 09:35 Arm band placed on left wrist. ch 09:44 Emir Teague MD is Attending Physician. kdr 10:04 EKG done, by bomb technician. reviewed by Emir Teague MD. at1 10:24 Patient taken to ultrasound. hr 10:26 Carlos Pedraza, RN is Primary Nurse. sg 10:27 Initial lab(s) drawn, by ok, sent to lab. Inserted saline lock: 20 gauge in left sg antecubital area, using aseptic technique. Blood collected. 10:42 US Extremity Venous Unilateral Ltd In Process Unspecified. EDMS 12:52 Patient has correct armband on for positive identification. iw 12:52 No provider procedures requiring assistance completed. IV discontinued, intact, iw bleeding controlled, No redness/swelling at site. Pressure dressing applied. Administered Medications: 10:45 Drug: TORadol 30 mg Route: IVP; Site: left antecubital; iw Outcome: 11:53 Discharge ordered by . kdr 12:52 Discharged to home ambulatory, with family. iw 12:52 Condition: good 12:52 Discharge instructions given to patient, Instructed on discharge instructions, follow up and referral plans. medication usage, Demonstrated understanding of instructions, follow-up care, medications, Prescriptions given X 1. 12:53 Patient left the ED. iw Signatures: Dispatcher [employer] EDMS Selina Tolentino RN RN Carlos Pedraza RN RN Emir Teague MD MD [facility] Randi Waller Oapl Martinez hr Alisa Kasper RN RN Daina Ayala, swing manager EKG Tat1 Yoon Marte RN RN tw2 Corrections: (The following items were deleted from the chart) 09:36 09:31 Presenting complaint: Patient states: L lower calf pain, every time I step it ch hurts deep in that calf. it has been going on for months, I saw my docor back in september or October for it. I start getting dizzy too. I am not working so since my Heart attack I have not taken any of my meds. My heart attack happened in October, but today I feel SOB and very dizzy, very anxious, like something is wrong. ch
--- NOTE | 2017-12-31 11:54 | EDPHYS ---
Physician Documentation [facility] Name: Eddie Isaacs Age: 52 yrs Sex: Male : 1965 Arrival Date: 12/31/2017 Time: 09:29 Bed 8 Private MD: None, None ED Physician Emir Teague HPI: 12/31 14:20 This 52 yrs old Male presents to ER via Ambulatory with complaints of Leg kdr Pain. 14:20 The patient presents with pain, that is chronic. The complaints affect the left calf. kdr Context: The problem was sustained at an unknown site, resulted from an unknown cause, the patient can fully bear weight, the patient is able to ambulate, with mild difficulty, Problem is a result from a previous injury: No. Onset: The symptoms/episode began/occurred gradually, has been ongoing for months but worse the last 4 days. Modifying factors: The symptoms are alleviated by nothing. the symptoms are aggravated by movement, weight bearing. Associated signs and symptoms: Pertinent positives:. 14:33 Treatment prior to arrival includes: no previous treatment. Severity of symptoms: At kdr their worst the symptoms were mild, in the emergency department the symptoms are unchanged. This has been an ongoing problem for some time - only worse in the last few days. The patient has not recently seen a physician. 14:33 The patient also c/o low back pain that has been ongoing for 9 - 12 months. 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 - Social history:: Smoking status: Patient uses tobacco products, smokes one pack cigarettes per day. smokes two packs cigarettes per day. Patient/guardian denies using alcohol, street drugs. - Ebola Screening: : Patient negative for fever greater than or equal to 101.5 degrees Fahrenheit, and additional compatible Ebola Virus Disease symptoms Patient denies exposure to infectious person Patient denies travel to an Ebola-affected area in the 21 days before illness onset No symptoms or risks identified at this time. ROS: 14:50 Constitutional: Negative for fever, chills, and weight loss, Eyes: Negative for injury, kdr pain, redness, and discharge, Neck: Negative for injury, pain, and swelling, Cardiovascular: Negative for chest pain, palpitations, and edema, Respiratory: Negative for shortness of breath, cough, wheezing, and pleuritic chest pain, Abdomen/GI: Negative for abdominal pain, nausea, vomiting, diarrhea, and constipation, : Negative for injury, bleeding, discharge, and swelling, Skin: Negative for injury, rash, and discoloration, Neuro: Negative for headache, weakness, numbness, tingling, and seizure activity. Psych: Negative for depression, anxiety, suicide ideation, homicidal ideation, and hallucinations, Allergy/Immunology: Negative for hives, rash, and allergies, Endocrine: Negative for neck swelling, polydipsia, polyuria, polyphagia, and marked weight changes, Hematologic/Lymphatic: Negative for swollen nodes, abnormal bleeding, and unusual bruising. 14:50 Back: Positive for pain at rest, pain with movement, of the low back area and left low back. Exam: 14:50 Constitutional: This is a well developed, well nourished patient who is awake, alert, kdr and in no acute distress. Head/Face: Normocephalic, atraumatic. Eyes: Pupils equal round and reactive to light, extra-ocular motions intact. Lids and lashes normal. Conjunctiva and sclera are non-icteric and not injected. Cornea within normal limits. Periorbital areas with no swelling, redness, or edema. Neck: Trachea midline, no thyromegaly or masses palpated, and no cervical lymphadenopathy. Supple, full range of motion without nuchal rigidity, or vertebral point tenderness. No Meningismus. Chest/axilla: Normal chest wall appearance and motion. Nontender with no deformity. No lesions are appreciated. Cardiovascular: Regular rate and rhythm with a normal S1 and S2. No gallops, murmurs, or rubs. Normal PMI, no JVD. No pulse deficits. Respiratory: Lungs have equal breath sounds bilaterally, clear to auscultation and percussion. No rales, rhonchi or wheezes noted. No increased work of breathing, no retractions or nasal flaring. Abdomen/GI: Soft, non-tender, with normal bowel sounds. No distension or tympany. No guarding or rebound. No evidence of tenderness throughout. Back: No spinal tenderness. No costovertebral tenderness. Full range of motion. Skin: Warm, dry with normal turgor. Normal color with no rashes, no lesions, and no evidence of cellulitis. MS/ Extremity: Pulses equal, no cyanosis. Neurovascular intact. Full, normal range of motion. Tender and mild ecchymosis to the left calf Neuro: Awake and alert, GCS 15, oriented to person, place, time, and situation. Cranial nerves II-XII grossly intact. Motor strength 5/5 in all extremities. Sensory grossly intact. Cerebellar exam normal. Normal gait. Psych: Awake, alert, with orientation to person, place and time. Behavior, mood, and affect are within normal limits. Vital Signs: 09:35 BP 131 / 100; Pulse 88; Resp 22; Temp 97; Pulse Ox 100% on R/A; Weight 78.02 kg; Height ch 5 ft. 11 in. (180.34 cm); Pain 9/10; 11:10 BP 138 / 90; Pulse 77; Resp 17; Pulse Ox 95% on R/A; tw2 12:40 BP 136 / 96; Pulse 68; Resp 17; Pulse Ox 95% on R/A; tw2 09:35 Body Mass Index 23.99 (78.02 kg, 180.34 cm) MDM: 11:53 Patient medically screened. kdr 14:50 Data reviewed: vital signs, nurses notes, lab test result(s), radiologic studies. kdr Counseling: I had a detailed discussion with the patient and/or guardian regarding: the historical points, exam findings, and any diagnostic results supporting the discharge/admit diagnosis, the presence of at least one elevated blood pressure reading (>120/80) during this emergency department visit, lab results, radiology results, the need for outpatient follow up. 12/31 09:44 Order name: Acetaminophen; Complete Time: 11:47 kdr 12/31 09:44 Order name: Basic Metabolic Panel; Complete Time: 11:47 kdr 12/31 09:44 Order name: CBC with Diff; Complete Time: 11:47 kdr 12/31 09:44 Order name: ETOH Level; Complete Time: 11:47 kdr 12/31 09:44 Order name: Hepatic Function; Complete Time: 11:47 kdr 12/31 09:44 Order name: PT-INR; Complete Time: 11:47 kdr 12/31 09:44 Order name: Ptt, Activated; Complete Time: 11:47 kdr 12/31 09:44 Order name: Salicylate; Complete Time: 11:47 kdr 12/31 09:44 Order name: EKG; Complete Time: 09:45 kdr 12/31 09:44 Order name: Troponin (emerg Dept Use Only); Complete Time: 11:47 kdr 12/31 10:18 Order name: US Extremity Venous Unilateral Ltd; Complete Time: 11:47 kdr 12/31 09:44 Order name: IV Saline Lock; Complete Time: 10:30 kdr 12/31 09:44 Order name: Labs collected and sent; Complete Time: 10:30 kdr Administered Medications: 10:45 Drug: TORadol 30 mg Route: IVP; Site: left antecubital; iw Disposition: 12/31/17 11:53 Discharged to Home. Impression: LEFT LEG PAIN. - Condition is Stable. - Discharge Instructions: Musculoskeletal Pain, Muscle Pain, Adult. - Prescriptions for Tramadol 50 mg Oral Tablet - take 1 tablet by ORAL route every 8 hours as needed; 12 tablet. - Medication Reconciliation Form, Thank You Letter form. - Follow up: Private Physician; When: 2 - 3 days; Reason: If symptoms return, Further diagnostic work-up, Recheck today's complaints, Continuance of care, Re-evaluation by your physician. - Problem is an ongoing problem. - Symptoms have improved. Signatures: Dispatcher [employer] EDSelina Goncalves RN RN Emir Teague MD MD [facility] Alisa Kasper RN RN iw Corrections: (The following items were deleted from the chart) 12:53 11:53 12/31/2017 11:53 Discharged to Home. Impression: LEFT LEG PAIN. Condition is iw Stable. Forms are Medication Reconciliation Form, Thank You Letter, Antibiotic Education, Prescription Opioid Use. Follow up: Private Physician; When: 2 - 3 days; Reason: If symptoms return, Further diagnostic work-up, Recheck today's complaints, Continuance of care, Re-evaluation by your physician. Problem is an ongoing problem. Symptoms have improved. kdr
--- NOTE | 2017-12-31 12:25 | EKG ---
Test Date: 2017-12-31 Test Time: 09:59:31 Cage Operator: ROSE MEASUREMENT RESULTS: Intervals: Rate: 84 SD: 170 QRSD: 78 QT: 408 QTc: 482 [place]: P: 38 SD: 170 QRS: 46 T: 39 INTERPRETIVE STATEMENTS: Sinus rhythm with premature atrial complexes Otherwise normal ECG Compared to ECG 04/04/2017 07:40:56 Myocardial infarct finding no longer present Electronically Signed On 12-31-17 12:24:30 CDT by Jovany Perry
== END 2017-12-31 12:53 | disposition home or self-care (01) ==
LOC: ER 09:26
DX: M79.605 Pain in left leg (principal); I10 Essential (primary) hypertension; F32.9 Major depressive disorder, single episode, unspecified
CPT/HCPCS: 36415; 80048; 80076; 80320; 80329; 84484; 85025; 85610; 85730; 93005; 93971; 96374; 99284

== ENCOUNTER 2019-02-05 17:27 | Inpatient (IN) | payer SELFPAY ==
[2019-02-05 17:45] LABS: Absolute Lymphocytes (CBC) 1.8 K/uL (0.7-4.9); Basophils % 1.1 % (0-1.3); Hematocrit 32.8 % (39.6-49.0); Lymphocytes % 25.4 % (15.3-44.8); RBC Red Blood Cell Count 3.67 M/uL (4.33-5.43)
[2019-02-05 17:49] LABS: Protime INR 1.06
--- NOTE | 2019-02-05 18:13 | ER ---
Nurse's Notes [facility] Name: Eddie Isaacs Age: 53 yrs Sex: Male : 1965 Arrival Date: 02/05/2019 Time: 17:31 Bed 8 Private MD: Diagnosis: Chest pain, unspecified;Angina pectoris;Tobacco abuse counseling;Tobacco use;Essential (primary) hypertension;Hypokalemia Presentation: 02/05 17:34 Presenting complaint: Patient states: midsternal chest pain intermittent X 1 week,worse iw today, hx of MS X 2years ago. Transition of care: patient was not received from another setting of care. Onset of symptoms was January 28, 2019. Risk Assessment: Do you want to hurt yourself or someone else? Patient reports no desire to harm self or others. Initial Sepsis Screen: Does the patient meet any 2 criteria? No. Patient's initial sepsis screen is negative. Does the patient have a suspected source of infection? No. Patient's initial sepsis screen is negative. Care prior to arrival: 17:34 Method Of Arrival: EMS: [facility] iw 17:34 Acuity: DENICE 3 iw 17:49 Care prior to arrival: Medication(s) given: ASA, 81 mg, x 4, Normal saline infusion, iw 500 mL, Nitroglycerin, 0.4 mg SL x 1. 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 - Ebola Screening: : Patient negative for fever greater than or equal to 101.5 degrees Fahrenheit, and additional compatible Ebola Virus Disease symptoms Patient denies exposure to infectious person Patient denies travel to an Ebola-affected area in the 21 days before illness onset No symptoms or risks identified at this time. - Family history:: not pertinent. - Social history:: Smoking status: unknown. Screenin:40 Abuse screen: Denies threats or abuse. Denies injuries from another. Nutritional iw screening: No deficits noted. Tuberculosis screening: No symptoms or risk factors identified. Fall Risk IV access (20 points). Assessment: 17:45 General: Appears in no apparent distress. Behavior is calm, cooperative. Pain: Denies iw pain. Pain: Complains of pain in chest Pain does not radiate. Pain currently is 0 out of 10 on a pain scale. at worst was 6 out of 10 on a pain scale. Quality of pain is described as pressure, Pain began one week ago Is intermittent. Neuro: Level of Consciousness is awake, alert, obeys commands, Oriented to person, place, time, situation, Moves all extremities. Full function. Cardiovascular: Reports chest pain, Patient's skin is warm and dry. Rhythm is regular. Respiratory: Airway is patent Respiratory effort is even, unlabored, Respiratory pattern is regular, symmetrical. GI: Abdomen is flat, non-distended. Derm: Skin is intact, is healthy with good turgor. Musculoskeletal: Range of motion: intact in all extremities. 18:14 Reassessment: sandwich given to patient per Dr. Abraham. Patient is asking to go ss outside and smoke. Patient educated on importance of staying in room awaiting results and hospitals' policy regarding smoking. 02/06 07:00 Reassessment: REPORT FROM [facility], SEE [employer] FOR FURTHER CHARTING. bp 07:51 Reassessment: REPORT TO [facility]. PT FERNANDA WITH PCT. bp Vital Signs: 02/05 17:40 BP 149 / 70; Pulse 84; Resp 16; Temp 98.2; Pulse Ox 97% on R/A; Weight 70.31 kg; Height iw 5 ft. 11 in. (180.34 cm); Pain 0/10; 18:22 BP 142 / 73; Pulse 79; Resp 16; Pulse Ox 99% on R/A; iw 17:40 Body Mass Index 21.62 (70.31 kg, 180.34 cm) iw ED Course: 17:31 Patient arrived in ED. la1 17:35 Jacques Abraham MD is Attending Physician. liu 17:38 Triage completed. iw 17:39 Alisa Kasper, RN is Primary Nurse. iw 17:40 Arm band placed on. iw 17:40 Maintain EMS IV. Dressing intact. Good blood return noted. Site clean \T\ dry. Gauge \T\ iw site: 20 LAC. 17:41 Patient maintains SpO2 saturation greater than 95% on room air. iw 17:58 XRAY Chest (1 view) In Process Unspecified. EDMI 18:10 Belinda Ballard MD is Hospitalizing Provider. [facility] 18:15 Tanner Davis DO is Hospitalizing Provider. [facility] 02/06 07:04 Primary Nurse role handed off by Alisa Ksaper RN eb 07:20 Viktor Peng, RN is Primary Nurse. bp 07:51 No provider procedures requiring assistance completed. Patient admitted, IV remains in bp place. 07:52 Patient has correct armband on for positive identification. Bed in low position. Call bp light in reach. Side rails up X2. school bus monitor on. Pulse ox on. NIBP on. Administered Medications: 02/05 18:08 Not Given (administered 324 mg by EMS): Aspirin 81 mg PO once iw 18:21 Drug: Lopressor 25 mg Route: PO; iw 19:26 Follow up: Response: No adverse reaction ak1 18:21 Drug: Lovenox 1 mg/kg Route: Sub-Q; Site: right lower abdomen; iw 19:26 Follow up: Response: No adverse reaction ak1 19:25 Drug: Potassium Effervescent Tablet 50 mEq Route: PO; ak1 19:26 Follow up: Response: No adverse reaction ak1 19:26 Drug: NS 0.9% with KCl 20 mEq/L 1000 ml Route: IV; Rate: 125 ml/hr; Site: left ak1 antecubital; 19:26 Follow up: IV Status: Infusion continued upon admission ak1 Outcome: 18:11 Decision to Hospitalize by Provider. [facility] 02/06 07:51 Admitted to Tele accompanied by tech, via stretcher, room 424, with chart, Report bp called to [facility] Condition: stable Instructed on the need for admit. 08:28 Patient left the ED. bp Signatures: Dispatcher [employer] EDMS Jacques Abraham MD MD cha Williams, Irene, RN RN iw Vidhi Lemon RN RN Maximiliano Dozier RN RN laSabi Flores RN RN ak1 Viktor Peng, RN RN Vicenta Kovacs Corrections: (The following items were deleted from the chart) 02/05 17:44 17:40 BP 149 / 70; Pulse 84bpm; Resp 16bpm; Pulse Ox 97% RA; Temp 98.2F; iw iw
--- NOTE | 2019-02-05 18:13 | EDPHYS ---
Physician Documentation [facility] Name: Eddie Isaacs Age: 53 yrs Sex: Male : 1965 Arrival Date: 02/05/2019 Time: 17:31 Bed 8 Private MD: ED Physician Jacques Abraham HPI: 02/05 18:04 This 53 yrs old Male presents to ER via EMS with complaints of Chest Pain > liu 31 y/o. 18:04 The patient or guardian reports chest pain that is located primarily in the anterior liu chest wall, bilaterally. Onset: today. The pain does not radiate. Associated signs and symptoms: The patient has no apparent associated signs or symptoms. The chest pain is described as a heaviness, a pressure, squeezing. Modifying factors: The symptoms are alleviated by nothing. the symptoms are aggravated by nothing. Severity of pain: At its worst the pain was mild moderate in the emergency department the pain has resolved and did so just prior to arrival. 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 - Ebola Screening: : Patient negative for fever greater than or equal to 101.5 degrees Fahrenheit, and additional compatible Ebola Virus Disease symptoms Patient denies exposure to infectious person Patient denies travel to an Ebola-affected area in the 21 days before illness onset No symptoms or risks identified at this time. - Family history:: not pertinent. - Social history:: Smoking status: unknown. ROS: 18:04 Constitutional: Negative for fever, chills, and weight loss, Eyes: Negative for injury, liu pain, redness, and discharge, ENT: Negative for injury, pain, and discharge, Neck: Negative for injury, pain, and swelling, Respiratory: Negative for shortness of breath, cough, wheezing, and pleuritic chest pain, Abdomen/GI: Negative for abdominal pain, nausea, vomiting, diarrhea, and constipation, Back: Negative for injury and pain, : Negative for injury, bleeding, discharge, and swelling, MS/Extremity: Negative for injury and deformity, Skin: Negative for injury, rash, and discoloration, Neuro: Negative for headache, weakness, numbness, tingling, and seizure, Psych: Negative for depression, anxiety, suicide ideation, homicidal ideation, and hallucinations, Allergy/Immunology: Negative for hives, rash, and allergies, Endocrine: Negative for neck swelling, polydipsia, polyuria, polyphagia, and marked weight changes, Hematologic/Lymphatic: Negative for swollen nodes, abnormal bleeding, and unusual bruising. 18:04 Cardiovascular: Positive for chest pain. Exam: 18:04 Constitutional: This is a well developed, well nourished patient who is awake, alert, liu and in no acute distress. Head/Face: Normocephalic, atraumatic. Eyes: Pupils equal round and reactive to light, extra-ocular motions intact. Lids and lashes normal. Conjunctiva and sclera are non-icteric and not injected. Cornea within normal limits. Periorbital areas with no swelling, redness, or edema. ENT: Nares patent. No nasal discharge, no septal abnormalities noted. Tympanic membranes are normal and external auditory canals are clear. Oropharynx with no redness, swelling, or masses, exudates, or evidence of obstruction, uvula midline. Mucous membranes moist. Neck: Trachea midline, no thyromegaly or masses palpated, and no cervical lymphadenopathy. Supple, full range of motion without nuchal rigidity, or vertebral point tenderness. No Meningismus. Chest/axilla: Normal chest wall appearance and motion. Nontender with no deformity. No lesions are appreciated. Cardiovascular: Regular rate and rhythm with a normal S1 and S2. No gallops, murmurs, or rubs. Normal PMI, no JVD. No pulse deficits. Respiratory: Lungs have equal breath sounds bilaterally, clear to auscultation and percussion. No rales, rhonchi or wheezes noted. No increased work of breathing, no retractions or nasal flaring. Abdomen/GI: Soft, non-tender, with normal bowel sounds. No distension or tympany. No guarding or rebound. No evidence of tenderness throughout. Back: No spinal tenderness. No costovertebral tenderness. Full range of motion. Skin: Warm, dry with normal turgor. Normal color with no rashes, no lesions, and no evidence of cellulitis. MS/ Extremity: Pulses equal, no cyanosis. Neurovascular intact. Full, normal range of motion. Neuro: Awake and alert, GCS 15, oriented to person, place, time, and situation. Cranial nerves II-XII grossly intact. Motor strength 5/5 in all extremities. Sensory grossly intact. Cerebellar exam normal. Normal gait. Psych: Awake, alert, with orientation to person, place and time. Behavior, mood, and affect are within normal limits. 18:04 Musculoskeletal/extremity: DVT Exam: No signs of deep vein thrombosis. no pain, no swelling, no tenderness, negative Homans' sign noted on exam, no appreciated bluish discoloration, no erythema, no increased warmth. Vital Signs: 17:40 BP 149 / 70; Pulse 84; Resp 16; Temp 98.2; Pulse Ox 97% on R/A; Weight 70.31 kg; Height iw 5 ft. 11 in. (180.34 cm); Pain 0/10; 18:22 BP 142 / 73; Pulse 79; Resp 16; Pulse Ox 99% on R/A; iw 17:40 Body Mass Index 21.62 (70.31 kg, 180.34 cm) iw MDM: 17:35 Patient medically screened. [facility] 18:06 Data reviewed: vital signs, nurses notes, lab test result(s), EKG, radiologic studies. [facility] 02/05 17:31 Order name: Basic Metabolic Panel; Complete Time: 18:55 [facility] 02/05 17:31 Order name: CBC with Diff; Complete Time: 18:03 [facility] 02/05 17:31 Order name: LFT's; Complete Time: 18:55 [facility] 02/05 17:31 Order name: Magnesium; Complete Time: 18:55 [facility] 02/05 17:31 Order name: NT PRO-BNP; Complete Time: 18:55 ks1 02/05 17:31 Order name: PT-INR; Complete Time: 18:03 [facility] 02/05 17:31 Order name: Troponin (emerg Dept Use Only); Complete Time: 18:55 la1 02/05 17:31 Order name: Lipase; Complete Time: 18:55 la 02/05 18:04 Order name: UDS [facility] 02/05 21:44 Order name: Urine Dipstick--Ancillary (enter results) [facility] 02/05 22:09 Order name: Urine Dipstick-Ancillary EDMS 02/06 03:11 Order name: Creatine Phosphokinase EDMS 02/06 03:11 Order name: CKMB Creatine Kinase MB EDMS 02/05 17:31 Order name: XRAY Chest (1 view) la1 02/06 03:11 Order name: Troponin I EDMS 02/06 03:11 Order name: Transferrin Sat/Iron Binding EDMS 02/06 03:11 Order name: Ferritin EDMS 02/06 03:11 Order name: Vitamin B12 Level EDMS 02/06 06:04 Order name: CBC with Automated Diff EDMS 02/06 06:10 Order name: Basic Metabolic Panel EDMS 02/06 06:10 Order name: Lipid Profile EDMS 02/06 06:10 Order name: T4 Free EDMS 02/06 06:10 Order name: Magnesium EDMS 02/06 06:10 Order name: Thyroid Stimulating Hormone EDMS 02/06 06:41 Order name: Creatine Phosphokinase EDMS 02/06 06:41 Order name: CKMB Creatine Kinase MB EDMS 02/06 06:41 Order name: Troponin I EDMS 02/05 17:31 Order name: EKG; Complete Time: 17:32 la1 02/05 17:31 Order name: Cardiac monitoring; Complete Time: 17:44 la1 02/05 17:31 Order name: EKG - Nurse/Tech; Complete Time: 17:44 la1 02/05 17:31 Order name: IV Saline Lock; Complete Time: 17:44 la1 02/05 17:31 Order name: Labs collected and sent; Complete Time: 17:44 la02/05 17:31 Order name: O2 Per Protocol; Complete Time: 17:44 la1 02/05 17:31 Order name: O2 Sat Monitoring; Complete Time: 17:44 la1 02/05 17:38 Order name: Urine Dipstick-Ancillary (obtain specimen); Complete Time: 21:33 liu Administered Medications: 18:08 Not Given (administered 324 mg by EMS): Aspirin 81 mg PO once iw 18:21 Drug: Lopressor 25 mg Route: PO; iw 19:26 Follow up: Response: No adverse reaction ak1 18:21 Drug: Lovenox 1 mg/kg Route: Sub-Q; Site: right lower abdomen; iw 19:26 Follow up: Response: No adverse reaction ak1 19:25 Drug: Potassium Effervescent Tablet 50 mEq Route: PO; ak1 19:26 Follow up: Response: No adverse reaction ak1 19:26 Drug: NS 0.9% with KCl 20 mEq/L 1000 ml Route: IV; Rate: 125 ml/hr; Site: left ak1 antecubital; 19:26 Follow up: IV Status: Infusion continued upon admission ak1 Disposition: 02/05/19 18:11 Hospitalization ordered by Tanner Davis for Inpatient Admission. Preliminary diagnosis are Chest pain, unspecified, Angina pectoris, Tobacco abuse counseling, Tobacco use, Essential (primary) hypertension, Hypokalemia. - Bed requested for Telemetry/MedSurg (Inpatient). - Status is Inpatient Admission. bp - Condition is Fair. - Problem is new. - Symptoms have improved. UTI on Admission? No Signatures: Dispatcher [employer] EDMT Jacques Abraham MD MD cha Williams, Irene, RN RN Maximiliano Dozier RN RN laSabi Flores RN RN akKalie Davies RN RN Viktor Peng RN RN bp Corrections: (The following items were deleted from the chart) 18:05 17:39 Urine Culture+BA.LAB.BRZ ordered. [facility] EDMT 18:15 18:11 Hospitalization Ordered by Belinda Ballard MD for Observation. Preliminary diagnosis liu is Chest pain, unspecified; Angina pectoris; Tobacco abuse counseling; Tobacco use; Essential (primary) hypertension. Bed requested for Telemetry/MedSurg (observation). Status is Observation. Condition is Fair. Problem is new. Symptoms have improved. UTI on Admission? No. liu 18:56 18:15 02/05/2019 18:11 Hospitalization Ordered by Tanner Davis DO for Observation. liu Preliminary diagnosis is Chest pain, unspecified; Angina pectoris; Tobacco abuse counseling; Tobacco use; Essential (primary) hypertension. Bed requested for Telemetry/MedSurg (observation). Status is Observation. Condition is Fair. Problem is new. Symptoms have improved. UTI on Admission? No. liu 22:36 18:56 02/05/2019 18:11 Hospitalization Ordered by Tanner Davis DO for Inpatient cg Admission. Preliminary diagnosis is Chest pain, unspecified; Angina pectoris; Tobacco abuse counseling; Tobacco use; Essential (primary) hypertension; Hypokalemia. Bed requested for Telemetry/MedSurg (Inpatient). Status is Inpatient Admission. Condition is Fair. Problem is new. Symptoms have improved. UTI on Admission? No. liu 02/06 04:33 10 22:36 02/05/2019 18:11 Hospitalization Ordered by Tanner Davis DO for Inpatient cg Admission. Preliminary diagnosis is Chest pain, unspecified; Angina pectoris; Tobacco abuse counseling; Tobacco use; Essential (primary) hypertension; Hypokalemia. Bed requested for [facility] ER HOLD. Status is Inpatient Admission. Condition is Fair. Problem is new. Symptoms have improved. UTI on Admission? No. cg 02/06 08:28 04:33 02/05/2019 18:11 Hospitalization Ordered by Tanner Davis DO for Inpatient bp Admission. Preliminary diagnosis is Chest pain, unspecified; Angina pectoris; Tobacco abuse counseling; Tobacco use; Essential (primary) hypertension; Hypokalemia. Bed requested for Telemetry/MedSurg (Inpatient). Status is Inpatient Admission. Condition is Fair. Problem is new. Symptoms have improved. UTI on Admission? No. cg
[2019-02-05] MEDS ORDERED: METOPROLOL TAR 25 MG TAB ONE (18:15)
[2019-02-05] MEDS ORDERED: ENOXAPARIN 80 MG/0.8 ML SQ ONE (18:16)
[2019-02-05 18:21] LABS: Bilirubin Direct 0.1 mg/dL (0-0.2); Bilirubin Total 0.3 mg/dL (0.2-1.0); Magnesium 1.8 mg/dL (1.8-2.4); Protein, Total 6.5 g/dL (6.4-8.2); Troponin (Emerg Dept Use Only) 0.26 ng/mL (0.0-0.045)
[2019-02-05] MEDS ORDERED: POTASSIUM 25 MEQ EFFERV TAB ONE (19:19)
[2019-02-05] MEDS ORDERED: NS KCL 20MEQ 1,000 ML IV ONE (19:19)
--- NOTE | 2019-02-05 19:51 | P.HP ---
Certification for Inpatient Patient admitted to: Inpatient With expected LOS: >2 Midnights Patient will require the following post-hospital care: None Practitioner: I am a practitioner with admitting privileges, knowledge of patient current condition, hospital course, and medical plan of care. Services: Services provided to patient in accordance with Admission requirements found in Title 42 Section 412.3 of the Code of Federal Regulations Patient History Date of Service: 02/05/19 Primary Care Provider: Paige Cordova NP Reason for admission: Chest pain History of Present Illness: 53-year-old male presented to the emergency room with chest pain. Patient with history of CAD and prior stent 2 years ago, depression with anxiety , tobacco abuse. Patient currently lives at the [facility]. Patient reported chest pain over the last week. Pain would come and go. Today he rated the pain about a 8/10. It was mainly to the midsternal region. It felt like a pressure like sensation. He did not have any nausea, vomiting with this. He did report a mild headache and shortness of breath with the chest pain. Patient admits smoking 1-1/2 pack per day. He reports taking methamphetamines about a month ago. Patient has not followed up with Cardiology in over 2 years. Patient has a history of chronic pain and takes methadone. Patient came to the ER for further evaluation. In the ER patient evaluated. Blood pressure slightly elevated at 150 3/88. CBC showed a hemoglobin of 11.0. Platelet count of 223. White count 7.2. Troponin was elevated at 0.26. Sodium 144, potassium 3.0 creatinine 0.92 with a GFR of 81. Glucose 81. Alk-phos 125. Magnesium 1.8. BNP 1900. EKG showed no significant ST elevation. Patient admitted for further evaluation treatment. When I saw the patient the ER, he appeared stable. Increase anxiety noted. Patient stable this time. Allergies No Known Allergies Allergy (Unverified 04/04/17 08:35) Home medications list reviewed: Yes - Past Medical/Surgical History Diabetic: No -: CAD with prior stent -: Hypertension -: Tobacco abuse -: Depression with anxiety -: History of methamphetamine use -: Homeless -: 5 knee surgeries -: Sinus surgery Psychosocial/ Personal History: Patient is currently homeless and lives at the [facility]. - Family History Father -: Heart disease Mother -: Cancer (Pancreatic cancer) - Social History Smoking Status: Heavy Tobacco smoker (>10 cigarettes/day) Counseled patient to stop smoking for: less than 10 minutes Smoking therapy provided: Yes Patient receptive to therapy: Yes Alcohol use: No CD- Drugs: Yes Caffeine use: Yes Place of Residence: [facility] Review of Systems General: As per HPI Eyes: Unremarkable ENT: Unremarkable Respiratory: Shortness of Breath, SOB with Excertion, As per HPI Cardiovascular: Chest Pain, Light Headedness, As per HPI Gastrointestinal: Unremarkable Genitourinary: Unremarkable Musculoskeletal: Back Pain, As per HPI Integumentary: Unremarkable Neurological: Unremarkable Lymphatics: Unremarkable Physical Examination - Physical Exam General: Alert, In no apparent distress, Oriented x3, Cooperative, Disheveled, Other (Increased anxiety) HEENT: Atraumatic, Normocephalic, PERRLA, Other (Dry mucous membranes) Neck: Supple, No Thyromegaly Respiratory: Clear to auscultation bilaterally, Normal air movement Cardiovascular: Normal pulses, Regular rate/rhythm Gastrointestinal: Normal bowel sounds, Soft and benign, Non-distended, No ascites, No tenderness, No masses, No rebound, No guarding Musculoskeletal: No contractures, No erythema, No tenderness, No warmth Integumentary: No tenderness/swelling, No erythema, No warmth, No cyanosis Neurological: Normal speech, Normal strength at 5/5 x4 extr, Normal tone, Normal affect - Studies Laboratory Data (last 24 hrs) 02/05/19 17:36: PT 12.5, INR 1.06 02/05/19 17:36: WBC 7.2, Hgb 11.0 L, Hct 32.8 L, Plt Count 223 02/05/19 17:36: Sodium 144, Potassium 3.0 L, BUN 11, Creatinine 0.97, Glucose 98 , Magnesium 1.8, Total Bilirubin 0.3, AST 17, ALT 16, Alkaline Phosphatase 125 H , Lipase 58 L Assessment and Plan - Plan Impression: Chest pain, shortness of breath secondary to NSTEMI with history of CAD and prior stent Hypertension Tobacco abuse History of methamphetamine use Depression with anxiety Chronic pain, currently on methadone Hypokalemia Anemia likely iron deficiency Plan: Chest pain, shortness of breath secondary to NSTEMI with history of CAD and prior stent: Patient will be admitted for further evaluation and treatment. Will start aspirin, high-dose statin medication, and metoprolol. Nitro and morphine will be provided as needed for chest pain. Will also start Lovenox at 1 milligram/kilogram subcu twice daily. Cardiology consulted to further assess and address. Will keep the patient NPO as the patient will require cardiac intervention to further evaluate and possibly treat. Will maintain sats above 90%. Will continue to monitor telemetry and cardiac enzymes. Echocardiogram ordered. Daytime hospitalist will continue his care tomorrow. Anticipate discharge in the next 2-3 days pending cardiac evaluation and clinical improvement. Hypertension: Will start metoprolol. Will monitor and adjust appropriately. Tobacco abuse: Cessation education addressed in detail. Will provide nicotine patch. History of methamphetamine use: Will check urine drug screen. Cessation education addressed in detail. Depression with anxiety: Will need to obtain and restart home medication. Will provide medication for anxiety. Chronic pain, currently on methadone: Will need to verify medication. Patient will be provided morphine as needed.Hypokalemia: Will monitor and replace appropriately. Anemia likely iron deficiency: Will monitor lab closely. Will check iron and B12 studies. Discharge Plan: Home Plan to discharge in: 72 Hours - Advance Directives Does patient have a Living Will: No Does patient have a Durable POA for Healthcare: No - Code Status/Comfort Care Code Status Assessed: Yes (Patient is full code) Time Spent Managing Pts Care (In Minutes): 55
[2019-02-05 22:08] LABS: Urine Blood 3+ (NEG); Urine Glucose NEGATIVE (NEG); Urine Protein 1+ (NEG); Urine Specific Gravity >1.030 (1.005-1.030)
[2019-02-05 22:08] LABS: Barbiturates NEGATIVE (NEGATIVE); Benzodiazepines NEGATIVE (NEGATIVE); Cocaine NEGATIVE (NEGATIVE); METHAMPHETAM POSITIVE (NEGATIVE); Methadone POSITIVE (NEGATIVE); Opiates NEGATIVE (NEGATIVE); Phencyclidine NEGATIVE (NEGATIVE); THC Cannibis POSITIVE (NEGATIVE)
[2019-02-05] MEDS ORDERED: ENOXAPARIN 100 MG/ML SYR SQ SCH (22:14)
[2019-02-05] MEDS ORDERED: ALBUTEROL 2.5 MG/3 ML NEB SOL NEB PRN (22:14)
[2019-02-05] MEDS ORDERED: IPRATROPIUM BROM 0.5MG/2.5ML NEB PRN (22:14)
[2019-02-05] MEDS ORDERED: ACETAMINOPHEN 500 MG TAB PO PRN (22:14)
[2019-02-05] MEDS ORDERED: MORPHINE 2 MG/ML SYR IV PRN (22:14)
[2019-02-05] MEDS ORDERED: NITROGLYCERIN 0.4 MG/TAB SL PRN (22:14)
[2019-02-05] MEDS ORDERED: ONDANSETRON 4 MG/2 ML VIAL IV PRN (22:14)
[2019-02-05] MEDS ORDERED: LORazepam 2 MG/ML VIAL IV PRN (22:14)
[2019-02-05] MEDS: ARFORMOTEROL TARTRATE 15 MCG/2 ML VIAL.NEB NEB SCH (23:40)
--- NOTE | 2019-02-06 00:40 | P.PN ---
Subjective Date of Service: 02/06/19 Primary Care Provider: Paige Cordova NP Chief Complaint: Chest pain Subjective: Improving Physical Examination - Vital Signs Temperature: 98.3 F Blood Pressure: 162/87 Pulse: 66 Respirations: 12 Pulse Ox (%): 100 - Physical Exam General: Alert, In no apparent distress, Cooperative HEENT: Atraumatic Neck: Supple Respiratory: Clear to auscultation bilaterally, Normal air movement Cardiovascular: Normal pulses, Regular rate/rhythm Gastrointestinal: Normal bowel sounds, Soft and benign, Non-distended, No tenderness, No masses, No rebound, No guarding Musculoskeletal: No erythema, No tenderness, No warmth Integumentary: No tenderness/swelling, No erythema, No warmth, No cyanosis Neurological: Normal speech, Normal strength at 5/5 x4 extr, Normal tone, Normal affect - Studies Laboratory Data (last 24 hrs) 02/05/19 17:36: PT 12.5, INR 1.06 02/05/19 17:36: WBC 7.2, Hgb 11.0 L, Hct 32.8 L, Plt Count 223 02/05/19 17:36: Sodium 144, Potassium 3.0 L, BUN 11, Creatinine 0.97, Glucose 98 , Magnesium 1.8, Total Bilirubin 0.3, AST 17, ALT 16, Alkaline Phosphatase 125 H , Lipase 58 L Medications List Reviewed: Yes Assessment & Plan Discharge Plan: Home Plan to discharge in: 24 Hours Physician Review Additional Text: Impression: Chest pain, shortness of breath secondary to NSTEMI with history of CAD and prior stent Hypertension Tobacco abuse History of methamphetamine use Depression with anxiety Chronic pain, currently on methadone Hypokalemia Anemia likely iron deficiency Plan: Chest pain, shortness of breath secondary to NSTEMI with history of CAD and prior stent: Patient remained stable. Patient NPO for cardiac evaluation and likely intervention. Continue aspirin, high-dose statin medication, and metoprolol. Nitro and morphine will be provided as needed for chest pain. Continue Lovenox at 1 milligram/kilogram subcu twice daily. Await Cardiology findings. Will maintain sats above 90%. Will continue to monitor telemetry and cardiac enzymes. Echocardiogram ordered. Daytime hospitalist will continue his care. Anticipate discharge in the next 1-2 days pending cardiac evaluation and clinical improvement. Hypertension: Continue metoprolol. Will monitor and adjust appropriately. Tobacco abuse: Cessation education addressed in detail. Will provide nicotine patch. History of methamphetamine use: Will check urine drug screen. Cessation education addressed in detail. Depression with anxiety: Will need to obtain and restart home medication. Will provide medication for anxiety. Chronic pain, currently on methadone: Will need to verify medication. Patient will be provided morphine as needed.Hypokalemia: Will monitor and replace appropriately. Anemia likely iron deficiency: Will monitor lab closely. Will check iron and B12 studies. Time Spent Managing Pts Care (In Minutes): 55
[2019-02-06] MEDS: ATORVASTATIN 80 MG TAB PO SCH ×2 (01:30→21:02)
[2019-02-06 03:11] LABS: CKMB Creatine Kinase MB 2.4 ng/mL (0.3-3.6); Ferritin 61.3 ng/mL (26-388); Troponin I 0.43 ng/mL (0.0-0.045)
[2019-02-06] MEDS: METOPROLOL TAR 25 MG TAB PO SCH ×3 (05:15→21:02)
[2019-02-06 05:52] LABS: Absolute Lymphocytes (CBC) 2.8 K/uL (0.7-4.9); Hematocrit 31.3 % (39.6-49.0); Lymphocytes % 45.5 % (15.3-44.8); MPV 9.2 fL (7.6-11.3); RBC Red Blood Cell Count 3.53 M/uL (4.33-5.43)
[2019-02-06 06:10] LABS: Magnesium 1.9 mg/dL (1.8-2.4); Potassium 3.6 mmol/L (3.5-5.1); Thyroid Stimulating Hormone 1.41 uIU/mL (0.360-3.740)
[2019-02-06 06:41] LABS: CKMB Creatine Kinase MB 2.3 ng/mL (0.3-3.6); Troponin I 0.43 ng/mL (0.0-0.045)
[2019-02-06] MEDS ORDERED: ENOXAPARIN 80 MG/0.8 ML SQ SCH (09:00)
[2019-02-06] MEDS: FOLIC ACID 1 MG TABLET PO SCH (09:00)
[2019-02-06] MEDS: ARFORMOTEROL TARTRATE 15 MCG/2 ML VIAL.NEB NEB SCH ×2 (09:00→19:45)
[2019-02-06] MEDS: NICOTINE 21 MG/PAT TD SCH (10:30)
[2019-02-06] MEDS: ASPIRIN EC 81 MG TAB PO SCH (10:30)
[2019-02-06] MEDS ORDERED: D50W 25 GM/50 ML SYRINGE IV ONE (10:39)
[2019-02-06] MEDS ORDERED: HEPA 1000U/500MLS 2,000 UNIT/1,000 ML BAG IV ONE (11:00)
[2019-02-06] MEDS ORDERED: NA CHLORIDE 0.9% 500 ML ONE (11:25)
[2019-02-06] MEDS ORDERED: NA CHLORIDE 0.9% 50 ML ONE (11:26)
[2019-02-06] MEDS ORDERED: FENTANYL CITR 100 MCG/2 ML ONE (11:26)
[2019-02-06] MEDS ORDERED: ATROPINE SULF 1 MG/10 ML SYR IV ONE (11:26)
[2019-02-06] MEDS ORDERED: MIDAZOLAM HCL 2 MG/2 ML INJ ONE (11:26)
[2019-02-06] MEDS ORDERED: MIDAZOLAM HCL 5 MG/5 ML INJ ONE (11:43)
[2019-02-06] MEDS ORDERED: PRASUGREL (EFFIENT) 10 MG TAB ONE (12:25)
[2019-02-06] MEDS ORDERED: HYDRALAZINE HCL 20 MG/ML VIAL ONE (13:44)
[2019-02-06] MEDS ORDERED: LORazepam 2 MG/ML VIAL ONE (15:32)
[2019-02-06] MEDS ORDERED: LORazepam 2 MG/ML VIAL IV PRN (15:58)
--- NOTE | 2019-02-06 16:20 | ECHO ---
HEIGHT: 5 ft 11 in WEIGHT: 154 lb 15.76 oz DATE OF STUDY: 02/06/[address]: Tanner Davis DO 2-DIMENSIONAL: YES M.MODE: YES DOPPLER: YES COLOR FLOW: YES TDS: PORTABLE: DEFINITY: BUBBLE STUDY: DIAGNOSIS: CHEST PAIN, NSTEMI CARDIAC HISTORY: CATHERIZATION: YES SURGERY: NO PROSTHETIC VALVE: NO PACEMAKER: NO MEASUREMENTS (cm) DIASTOLIC (NORMALS) SYSTOLIC (NORMALS) IVSd 1.0 (0.6-1.2) LA Diam 3.2 (1.9-4.0) LVEF 58% LVIDd 4.5 (3.5-5.7) LVIDs 3.1 (2.0-3.5) %FS 30% LVPWd 1.1 (0.6-1.2) Ao Diam 2.8 (2.0-3.7) 2 DIMENSIONAL ASSESSMENT: RIGHT ATRIUM: NORMAL LEFT ATRIUM: NORMAL RIGHT VENTRICLE: NORMAL LEFT VENTRICLE: NORMAL TRICUSPID VALVE: NORMAL MITRAL VALVE: NORMAL PULMONIC VALVE: NORMAL AORTIC VALVE: NORMAL PERICARDIAL EFFUSION: NONE AORTIC ROOT: NORMAL LEFT VENTRICULAR WALL MOTION: APICAL HYPOKINESIS DOPPLER/COLOR FLOW: MILD MITRAL REGURGITATION COMMENTS: NORMAL LEFT VENTRICULAR EJECTION FRACTION. APICAL HYPOKINESIS. MILD MITRAL REGURGITATION. TECHNOLOGIST: DELLA TINEO
--- NOTE | 2019-02-06 16:25 | P.PN ---
Date of Service: 02/06/19 Patient seen and examined. Case discussed with RN and Dr. Devi Patient actively withdrawing from methamphetamine. Benzodiazepines ordered. Transferred ICU. Patient has recent cardiac catheterization with risk of developing hematoma on the cath site with continued agitation. Monitor closely for signs of withdrawal
--- NOTE | 2019-02-06 21:59 | OP ---
Surgeon: Reynold Devi MD Procedure: Left heart catheterization, coronary and left ventricular angiography, percutaneous coron angelica intervention, successful stent placed in the mid LAD for a 90% LAD stenosis associated with non-S T elevation PR. Findings: The patient's right coronary was free of significant disease. The very distal posterolate ral branch had a 50% stenosis. The left main was free of disease. Circumflex was free of disease. The LAD had a stent in its proximal and midportions that was widely patent. No in-stent stenosis abo ut 5 mm distal to the stent. There was a 90% lesion looked like a dissected area of the artery. The left ventricular ejection fraction was close to 50%, but the apex and anterolateral wall were severe ly hypokinetic. No evidence of LV thrombus. After the stent was placed, there was mid LAD lesion an d no residual stenosis and DILLON grade 3 flow. The stent was 2.5 x 12 Synergy stent inflated to 12 at mospheres just distal to the old stent placed in 2017. Procedure In Detail: The patient was brought to the cardiac clinical laboratory medical director in a fasting state, sedated wit h Versed and fentanyl, prepared and draped in usual sterile fashion. Right femoral artery approach w as used because of absence of adequate radial pulses. Negative Patrick's tests. Right femoral artery tissue was anesthetized using 1% lidocaine, 18 cc. The artery was entered with an 18-gauge needle, c annulated with a 0.038 inch diameter. A J-wire and a 4-Qatari sheath was placed. This allowed us to angiogram the left coronary with a JL-4, right coronary with a 3DRC, left ventricle with a 4-Qatari angled pigtail. We switched for a 6-Qatari sheath using exchange technique. We then used an XBLAD 3 .5 with side holes to cannulate the left main ostium. This resulted in excellent support. We crosse d the lesion with a [place] wire. We were able to cross the lesion with a 2.5 x 12 Synergy stent afte r adequate views to make sure the placement was good. We inflated it to 14 atmospheres, deflated, an d removed the balloon part of the stent and the angiographic result was excellent, so we removed the guidewire from the lesion, took a final shot and removed the guide catheter into the sheath shot of t he right femoral artery determine adequate anatomy for closure with an Angio-Seal device. Angiomax w as given. Activated clotting time was over 400 seconds during the stent procedure itself. When the activated clotting time is around 250, we will pull the sheath and place an Angio-Seal device. Complications From The Procedure: None. Religious Assistant: Tiffanie Reyes. Estimated Blood Loss: 20 cc. MARIAA/CHRIS Voice ID: [id number] Report ID: [id number]
[2019-02-07 05:03] LABS: Absolute Lymphocytes (CBC) 2.1 K/uL (0.7-4.9); Basophils % 1.1 % (0-1.3); Hematocrit 34.1 % (39.6-49.0); Lymphocytes % 28.6 % (15.3-44.8); MPV 9.3 fL (7.6-11.3); RBC Red Blood Cell Count 3.77 M/uL (4.33-5.43)
[2019-02-07 05:19] LABS: BUN Blood Urea Nitrogen 13 mg/dL (7-18); Bicarbonate 27 mmol/L (21-32); Glucose Level 85 mg/dL (74-106); Magnesium 1.9 mg/dL (1.8-2.4); Potassium 3.4 mmol/L (3.5-5.1); Sodium Level 144 mmol/L (136-145)
[2019-02-07 06:00] VITALS: BMI 21.8
[2019-02-07] MEDS ORDERED: POTASSIUM 25 MEQ EFFERV TAB PO ONE (06:02)
[2019-02-07] MEDS: METOPROLOL TAR 25 MG TAB PO SCH ×2 (06:14→16:59)
[2019-02-07] MEDS: ARFORMOTEROL TARTRATE 15 MCG/2 ML VIAL.NEB NEB SCH ×2 (07:42→20:00)
[2019-02-07 08:01] LABS: Urine Appearance CLEAR; Urine Bilirubin NEGATIVE (NEG); Urine Blood 3+ (NEG); Urine Color YELLOW; Urine Glucose NEGATIVE (NEG); Urine Protein NEGATIVE (NEG); Urine Specific Gravity >=1.030 (1.005-1.030)
[2019-02-07 08:15] LABS: Urine Microscopic Reflex ORDER UMIC
[2019-02-07] MEDS: NICOTINE 21 MG/PAT TD SCH (09:00)
[2019-02-07] MEDS: ASPIRIN EC 81 MG TAB PO SCH (09:01)
[2019-02-07] MEDS: FOLIC ACID 1 MG TABLET PO SCH (09:01)
[2019-02-07] MEDS: CLOPIDOGREL 75 MG TABLET PO SCH (09:01)
[2019-02-07 09:04] LABS: Calcium Oxalate Crystals- Ur PRESENT (NONE SEEN); Urine Bacteria NONE SEEN /HPF (NONE SEEN); Urine Culture Reflex Order NOT NEEDED; Urine RBC >50 /HPF (NONE SEEN)
[2019-02-07] MEDS: METHADONE HCL 40 MG DISPERSIBLE TAB PO SCH (10:06)
--- NOTE | 2019-02-07 13:36 | PN ---
Mr. Isaacs is free of chest pain. His groin site looks good. He is voiding, eating. 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 Otherwise, he is doing well. We are going to get him o ut of ICU, let him start walking and we will get a social work consult to see if we can get him to af grace any of his medicines. He really needs to take dual antiplatelet therapy and a statin indefinite ly to have any hope of doing well with his heart. He also needs to quit tobacco use. MARIAA/CHRIS Voice ID: [id number] Report ID: [id number]
--- NOTE | 2019-02-07 16:57 | PN ---
Date of Progress Note: 02/07/2019 Subjective: Patient seen and examined. Chart reviewed and case discussed with RN and Dr. Devi. Rosemary de la rosa is doing well. No further withdrawal or agitation. His dose of methadone was able to be veri fied from rehab facility. Medications List: Reviewed. Physical Examination: Vital Signs: Temperature 98.2, heart rate 69, blood pressure 135/88, respirations 12, O2 100% on ambika m air. General: Awake, alert, oriented x3. No acute distress. CV: S1 and S2. Regular rate and rhythm. Peripheral pulses present. Respiratory: Moving air well bilaterally. No wheezing or stridor. No use of accessory muscles. Gastrointestinal: Abdomen is soft, nontender, nondistended. Positive bowel sounds. Extremities: No clubbing, cyanosis, or edema. Cath site in the right groin, no hematoma. Neurologic: Nonfocal. Sensation intact to light touch. Psych: Mood is okay. Affect is flat. Insight and judgment are fair. Laboratory Data: Sodium 144, potassium 3.4, chloride 110, CO2 of 27, BUN 13, creatinine 0.85, glucos e 85, calcium 8.3, magnesium 1.9. WBC 7.3, H and H of 11.4 and 34.1, platelets 216. Echocardiogram shows EF of 58%, apical hypokinesis, mild mitral regurg. Assessment: A 53-year-old male with: 1.Non-ST elevation myocardial infarction, status post cardiac catheterization. We will continue wit h chest pain guidelines, aspirin, Plavix. Chest pain is resolved. Echocardiogram reviewed. 2.Acute withdrawal from methadone and methamphetamine. We will resume methadone dose that has been verified with rehab facility. 3.Essential hypertension, stable. 4.Nicotine dependence with cigarette smoking. Continue with nicotine patch. 5.History of methamphetamine use. Counseled. 6.Depression with anxiety, stable. 7.Chronic pain, on methadone. 8.Hypokalemia, replace. 9.Anemia likely due to iron deficiency. We will start on iron supplements. We will monitor H and H . 10.Deep vein thrombosis prophylaxis with Lovenox. Plan: Step down from ICU. Discharge planning. Patient will need Social Work to assist with medicat ions. SA/MODL Voice ID: [id number] Report ID: [id number]
--- NOTE | 2019-02-07 17:02 | RAD REPORT ---
EXAM DESCRIPTION: RAD - Chest Single View - 02/06/2019 7:03 pm CLINICAL HISTORY: Chest pain COMPARISON: March 2017 TECHNIQUE: AP portable chest image was obtained 1747 hours . FINDINGS: Lungs are clear. Heart and vasculature are normal. No measurable pleural effusion and no p neumothorax. No acute bony abnormality seen. No acute aortic findings suspected. Due to prolonged technical difficulties with the PACs ocean lifeguard systems, final written report was delayed. IMPRESSION: No acute cardiopulmonary process. No worrisome change from comparison.
[2019-02-07] MEDS: ATORVASTATIN 80 MG TAB PO SCH (20:58)
[2019-02-07] MEDS: FERROUS SULFATE 325 MG TAB PO SCH (20:59)
[2019-02-08] MEDS: METOPROLOL TAR 25 MG TAB PO SCH ×2 (05:53→17:10)
[2019-02-08 06:12] LABS: Absolute Lymphocytes (CBC) 2.2 K/uL (0.7-4.9); Hematocrit 32.4 % (39.6-49.0); Lymphocytes % 32.8 % (15.3-44.8); MPV 9.8 fL (7.6-11.3)
[2019-02-08] MEDS: METHADONE HCL 40 MG DISPERSIBLE TAB PO SCH (06:13)
[2019-02-08 06:19] LABS: ALT/SGPT 14 U/L (12-78); AST/SGOT 11 U/L (15-37); Albumin 2.7 g/dL (3.4-5.0); Alkaline Phosphatase 112 U/L (45-117); BUN Blood Urea Nitrogen 12 mg/dL (7-18); Bicarbonate 29 mmol/L (21-32); Bilirubin Total 0.3 mg/dL (0.2-1.0); Glucose Level 75 mg/dL (74-106); Protein, Total 6.1 g/dL (6.4-8.2); Sodium Level 143 mmol/L (136-145)
--- NOTE | 2019-02-08 06:21 | EKG ---
Test Date: 2019-02-05 Test Time: 17:39:46 Block Feeder: ЮЛИЯ MEASUREMENT RESULTS: Intervals: Rate: 76 MD: 172 QRSD: 94 QT: 426 QTc: 479 [place]: P: 80 MD: 172 QRS: 66 T: 34 INTERPRETIVE STATEMENTS: Normal sinus rhythm T wave abnormality, consider anterior ischemia septal infarct Prolonged QT Abnormal ECG Compared to ECG 12/31/2017 09:59:31 T-wave abnormality now present Atrial premature complex(es) no longer present Electronically Signed On 02-08-19 06:21:20 CDT by Reynold Devi
[2019-02-08] MEDS: ASPIRIN EC 81 MG TAB PO SCH (08:09)
[2019-02-08] MEDS: NICOTINE 21 MG/PAT TD SCH (08:09)
[2019-02-08] MEDS: FERROUS SULFATE 325 MG TAB PO SCH ×2 (08:09→22:02)
[2019-02-08] MEDS: CLOPIDOGREL 75 MG TABLET PO SCH (08:09)
[2019-02-08] MEDS: FOLIC ACID 1 MG TABLET PO SCH (08:09)
[2019-02-08] MEDS: ARFORMOTEROL TARTRATE 15 MCG/2 ML VIAL.NEB NEB SCH ×2 (08:40→20:00)
--- NOTE | 2019-02-08 15:53 | PN ---
Mr. Isaacs has no chest pain. His groin site seems to be good. His social situation is such that I really hope we can find some way to put in his hands at least a few months' supply of the medicines he needs to take before he is discharged. Otherwise, I think he is close to being ready to be disch arged. SUE Voice ID: [id number] Report ID: [id number]
--- NOTE | 2019-02-08 20:23 | PN ---
Date of Progress Note: 02/08/2019 Subjective: The patient was seen and examined. Chart reviewed and case discussed with RN and Dr. Bernabe riggins. Patient seems to be doing well. No further signs of withdrawal. Medications: List reviewed. Physical Examination: Vital Signs: Temperature 97, heart rate 62, blood pressure 126/72, respirations 16, O2 of 100% on ro om air. General: Awake, alert, and oriented x3. No acute distress. CV: S1, S2. No murmurs. Regular rate and rhythm. Peripheral pulses present. Respiratory: Moving air well bilaterally. No wheezing or stridor. Gastrointestinal: Abdomen is soft, nontender, nondistended. Positive bowel sounds. Extremities: No clubbing, cyanosis, or edema. Neurologic: Nonfocal. Skin: Catheter site, no hematoma. Clean, dry, intact. Laboratory Data: Sodium 143, potassium 4, chloride 110, CO2 of 29, BUN 12, creatinine 0.86, glucose 75, calcium 8.2. WBC 6.7, hemoglobin and hematocrit 10.8 and 32.4, platelets 201. Assessment And Plan: A 53-year-old male with 1.Kql-MN-sqgolaity myocardial infarction, status post left anterior disease stent. We will continue with chest pain guidelines, aspirin, Plavix, statin, beta-mitchell, stable. 2.Acute withdrawal from methadone, methamphetamine abuse. We will continue to monitor for signs of withdrawal and treat as needed. Patient received multiple doses of benzodiazepines. was attemp ting to provide patient with 1 dose of methadone. She was counseled. 3.Essential hypertension, stable. 4.Nicotine dependence, cigarette smoking. Continue nicotine patch. 5.History of methamphetamine use. Counseled. 6.Depression with anxiety, stable. 7.Chronic pain syndrome, on methadone. He is inpatient at rehab facility. 8.Hypokalemia, replace and monitor. 9.Iron deficiency anemia. We will continue with iron supplements. Monitor H and H. Plan danisha heck in a.m. once cleared by Cardiology. Social Work to provide patient with medication assistrenee danielson SA/MODL Voice ID: [id number] Report ID: [id number]
[2019-02-08] MEDS: ATORVASTATIN 80 MG TAB PO SCH (22:02)
[2019-02-09 04:38] LABS: Absolute Lymphocytes (CBC) 2.3 K/uL (0.7-4.9); Hematocrit 30.7 % (39.6-49.0); Lymphocytes % 29.8 % (15.3-44.8); MPV 9.4 fL (7.6-11.3); RBC Red Blood Cell Count 3.42 M/uL (4.33-5.43)
[2019-02-09] MEDS: METOPROLOL TAR 25 MG TAB PO SCH (06:23)
[2019-02-09] MEDS: ARFORMOTEROL TARTRATE 15 MCG/2 ML VIAL.NEB NEB SCH (07:28)
[2019-02-09 08:26] VITALS: O2SAT 100
[2019-02-09] MEDS: METHADONE HCL 40 MG DISPERSIBLE TAB PO SCH (08:30)
[2019-02-09] MEDS: CLOPIDOGREL 75 MG TABLET PO SCH (08:31)
[2019-02-09] MEDS: FERROUS SULFATE 325 MG TAB PO SCH (08:31)
[2019-02-09] MEDS: ASPIRIN EC 81 MG TAB PO SCH (08:31)
[2019-02-09] MEDS: NICOTINE 21 MG/PAT TD SCH (08:31)
[2019-02-09] MEDS: FOLIC ACID 1 MG TABLET PO SCH (08:36)
[2019-02-09 09:30] VITALS: BP 128/75; TEMP 97.6
--- NOTE | 2019-02-09 09:54 | CON ---
Identification: 53-year-old man. Reason For Consultation: Myocardial infarction. History Of Present Illness: Mr. Isaacs is 53. Two years ago, he had an acute anterior MD and he w as life flighted to [facility] in [place], had an acute stent placed. When he was discharged, he com pletely lost all followup. Currently he is homeless, lives in [facility] and sometimes s leeps on the street. Takes no medications. Reports no allergies. He is a regular tobacco user. He has been having chest pain off and on for 2 weeks, came to the ER when the chest pain was worse and since being here, his EKG shows an old anterior MD and troponins are elevated. He has a creatinine o f 0.91, estimated GFR of 87. He is mildly anemic. His hemoglobin is 10.6 today. I do not really kn ow the cause of the anemia, but it is normochromic, normocytic. He does not give any evidence of blo od loss that he knows of. He denies any history of diabetes or hypertension, but admits that he does not get any checkups and would not know if he had those things. He has family children living in [facility] and he has not been able to reach them yet. He is emotionally distraught at t he time of exam. Physical Examination: Constitutional: 5 feet 11 inches, 154 pounds. HEENT: Normal. Neck: Carotids, no bruit. Lungs: Clear. Abdomen: Soft. Extremities: There are femoral bruits. Distal pulses markedly diminished, barely palpable in the fe et. Right radial pulse is very weak. Left radial pulse is close to normal. I do not think we could do a right radial artery catheterization with that high level of safety, so I do not recommend that. Impression: The patient has had myocardial infarction or unstable angina after the old myocardial in [facility]. He needs a cardiac cath, probably new stents. He is agreeable to do it and we will try an d do it later today. He is n.p.o. He did sign a consent do a heart catheterization through the [facility] t femoral approach and probably a stent after that. MARIAA/CHRIS Voice ID: [id number] Report ID: [id number]
--- NOTE | 2019-02-10 12:51 | DS ---
Date of Discharge: 02/09/2019 Procedures: Cardiac catheterization on 02/06/2019. Stent placed in the mid LAD for 90% LAD stenosis associated with NSTEMI. Admitting Diagnoses: 1.Wdc-GJ-hiferosdg myocardial infarction. 2.Shortness of breath. 3.History of coronary artery disease, marshall artery and marshall heart, status post stent with angina. 4.Essential hypertension. 5.Nicotine dependence with cigarette smoking. 6.History of methamphetamine abuse. 7.Depression with anxiety. 8.Chronic pain syndrome on methadone. 9.Hypokalemia. 10.Anemia likely due to iron deficiency. Discharge Diagnoses: 1.Xcx-YT-nagekjwix myocardial infarction, status post stent in the left anterior descending. 2.Acute withdrawal from substance abuse. 3.Essential hypertension, stable. 4.History of coronary artery disease marshall artery and marshall heart status post stent with angina. 5.Nicotine dependence with cigarette smoking. 6.History of methamphetamine abuse. 7.Major depressive disorder. 8.Generalized anxiety disorder. 9.Chronic pain syndrome on methadone and rehab facility. 10.Hypokalemia, replaced. 11.Iron-deficiency anemia, on iron supplement. Hospital Course: The patient is a 53-year-old male with history of heart disease with a stent 2 year s ago, depression, anxiety, nicotine dependence, lives at [facility], also goes to some shelter h ou and rehab clinic, is on methadone for his addiction. Patient was found to have chest pain, shor tness of breath. Cardiac enzymes were elevated consistent with NSTEMI. Patient was taken for cardia c cath as mentioned above. He received a stent to the LAD. Patient did well postoperatively. He di d have some acute withdrawal from his substance abuse. He received multiple doses of Ativan and was placed in the ICU for close monitoring. The patient did well. He was then cleared for discharge and was sent home in a stable condition. cinder pit worker met with the patient to provide assistance with medications. Good Rx card was provided. His medications are on the 4 dollar list at [facility]. He understands the importance of continuing blood thinners including Plavix without which his danilo nt will thrombose and he did have sudden cardiac arrest and . Family at the bedside. Treatment plan explained. All questions answered. Patient will also be on iron supplementation for iron defi ciency anemia. He was counseled extensively regarding his smoking and substance abuse. Medications: As per medication reconciliation list. Followup: Follow up with primary care physician in 2-3 days follow up with hand twister, Dr. Devi in 2 weeks. Return to ER for worsening condition. Diet: Heart healthy. Activity: As tolerated. No driving or operating heavy machinery while on narcotics. Physical Examination: General: Awake, alert, oriented x3. No acute distress. CV: S1, S2. No murmurs. Respiratory: Moving air well bilaterally. Abdomen: Abdomen is soft, nontender, nondistended. Positive bowel sounds. Extremities: No clubbing, cyanosis or edema. Neurologic: Nonfocal. Total time spent discharging the patient was 39 minutes. /CHRIS Voice ID: [id number] Report ID: [id number]
== END 2019-02-09 13:10 | disposition home or self-care (01) | DRG 247 ==
LOC: ER 17:27 → ERHOLD 19:09 → 4TH 02-06 07:55 → 3RD-ICU 02-06 15:40 → 4TH 02-07 12:25
PROVIDERS: ADMIT Family Medicine; ATTEND Family Medicine
PROC: 027034Z Dilation of Coronary Artery, One Artery with Drug-eluting Intraluminal Device, Percutaneous Approach (ICD-10-PCS; principal; 2019-02-06)
PROC: 4A023N7 Measurement of Cardiac Sampling and Pressure, Left Heart, Percutaneous Approach (ICD-10-PCS; 2019-02-06)
PROC: B201YZZ Plain Radiography of Multiple Coronary Arteries using Other Contrast (ICD-10-PCS; 2019-02-06)
PROC: B205YZZ Plain Radiography of Left Heart using Other Contrast (ICD-10-PCS; 2019-02-06)
DX: I21.4 Non-ST elevation (NSTEMI) myocardial infarction (principal); F11.23 Opioid dependence with withdrawal; F15.93 Other stimulant use, unspecified with withdrawal; I25.119 Atherosclerotic heart disease of native coronary artery with unspecified angina pectoris; I10 Essential (primary) hypertension; F17.210 Nicotine dependence, cigarettes, uncomplicated; G89.29 Other chronic pain; E87.6 Hypokalemia; D50.9 Iron deficiency anemia, unspecified; F32.9 Major depressive disorder, single episode, unspecified; F41.1 Generalized anxiety disorder; Z59.0 Homelessness
CPT/HCPCS: 36415; 71045; 80048; 80053; 80061; 80076; 80307; 81003; 81015; 82550; 82553; 82607; 82728; 82962; 83540; 83690; 83735; 83880; 84132; 84439; 84443; 84466; 84484; 85025; 85347; 85610; 92928; 93005; 93306; 93458; 94640; 96372; 99285; C1725; C1760; C1877; C1893; J0360; J0583; J1650; J2250; J2270; J3010; J7040; J7605

== ENCOUNTER 2019-04-13 10:19 | Emergency (ER) | payer SELFPAY ==
--- OUTSIDE RECORDS SUMMARY | 2019-04-13 10:23 | XMS REPORT ---
:1965 [facility] Address [address] [place] [address] Care Team Providers Name Role Phone CHRISSY LAZCANO Unavailable Unavailable RIGOBERTO DIOXN Unavailable Unavailable Payers Payer Name Policy Type Policy Number Effective Date Expiration Date Problems This patient has no known problems. Allergies, Adverse Reactions, Alerts Allergy Allergy Status Severity Reaction(s) Onset Inactive Treating Comments Name Type Date Date Clinician No Known DA Active U 2019-02 Allergies 16 00:00:0 0 Medications This patient has no known medications. Results Test Description Test Time Test Comments Text Results Atomic Results Result Comments COMPREHENSIVE METABOLIC PANEL 2019-02-19 08:21:00 Test Item Value Reference Range Comments SODIUM (test code=NA) 139.0 mmol/L 133-144 POTASSIUM (test code=K) 3.9 mmol/L 3.5-5.1 CHLORIDE (test code=CL) 111 mmol/L 95-105 CARBON DIOXIDE (test 19 mmol/L 21-32 code=CO2) ANION GAP (test code=GAP) 9.0 GAP calc 4.0-15.0 GLUCOSE (test code=GLU) 119 MG/DL 70-110 BLOOD UREA NITROGEN (test 12 MG/DL 7-18 code=BUN) GLOMERULAR FILTRATION RATE 89 estGFR >60 The estimated glomerular (test code=GFR) filtration rate is computed usingpatient race, age, sex, and serum creatinine. If any of theneeded data elements are missing the Laboratory can notcompute an estimation of the glomerular filtration rate.The GFR value units=ml/min/1.73 meter squared. EstimatedGFR values above 60 should be interpreted as >60, not anexact number.--- DRUG DOSAGE ALERT --- Drug dosage adjustments utilize different calculationparameters. CREATININE (test 0.90 MG/DL 0.55-1.30 Results may be depressed if code=CREAT) patient is takingN-Acetylcysteine (NAC) and Metamizole (Dipyrone). TOTAL PROTEIN (test 7.0 G/DL 6.4-8.2 code=PROT) ALBUMIN (test code=ALB) 2.9 G/DL 3.4-5.0 ALBUMIN/GLOBULIN RATIO 0.7 RATIO 1.2-2.2 (test code=A/G) CALCIUM (test code=CA) 8.8 MG/DL 8.5-10.1 BILIRUBIN TOTAL (test 0.59 MG/DL 0.00-1.00 code=BILT) BILIRUBIN DIRECT (test 0.13 MG/DL 0.00-0.30 code=BILD) BILIRUBIN INDIRECT (test 0.46 MG/DL 0.2-1.3 code=BILIND) SGOT/AST (test code=AST) 332 Unit/L 15-37 SGPT/ALT (test code=ALT) 45 Unit/L 12-78 ALKALINE PHOSPHATASE TOTAL 125 Unit/L 45-117 (test code=ALKP) INDEX HEMOLYSIS (test 1 NORMAL <10 MG 1 NORMAL code=HEMINDEX) Index/DL INDEX ICTERIC (test 1 NORMAL <2 MG 1 NORMAL code=ICTINDEX) Index/DL INDEX LIPEMIA (test 1 NORMAL <50 MG 1 NORMAL code=LIPINDEX) Index/DL [id number] 08:21:00 Test Item Value Reference Range Comments TROPONIN-I (test 120.000 NG/ML 0.000-0.045 Critical values after the first code=TROPI) occurrence are excluded fromcall documentation requirements for this analyte due to thepatient diagnosis or therapy protocols.REPORTED RESULTS VERIFIED WITH AUTO-DILUTION PROCEDURES.An elevated troponin value alone is not sufficient todiagnose a myocardial infarction. Rather, the patient'sclinical presentation (history, physical exam) and ECGshould be used in conjunction with troponin in thediagnostic evaluation of suspected myocardial infarction. Aserial sampling protocol is recommended to facilitate theidentification of temporal changes in troponin levelscharacteristic of MO. COMPREHENSIVE METABOLIC [id number] 07:28:00 Test Item Value Reference Range Comments SODIUM (test code=NA) 139.0 mmol/L 133-144 POTASSIUM (test code=K) 3.9 mmol/L 3.5-5.1 CHLORIDE (test code=CL) 111 mmol/L 95-105 CARBON DIOXIDE (test 19 mmol/L 21-32 code=CO2) ANION GAP (test code=GAP) 9.0 GAP calc 4.0-15.0 GLUCOSE (test code=GLU) 119 MG/DL 70-110 BLOOD UREA NITROGEN (test 12 MG/DL 7-18 code=BUN) GLOMERULAR FILTRATION 89 estGFR >60 The estimated glomerular RATE (test code=GFR) filtration rate is computed usingpatient race, age, sex, and serum creatinine. If any of theneeded data elements are missing the Laboratory can notcompute an estimation of the glomerular filtration rate.The GFR value units=ml/min/1.73 meter squared. EstimatedGFR values above 60 should be interpreted as >60, not anexact number.--- DRUG DOSAGE ALERT --- Drug dosage adjustments utilize different calculationparameters. CREATININE (test 0.90 MG/DL 0.55-1.30 Results may be depressed code=CREAT) if patient is takingN-Acetylcysteine (NAC) and Metamizole (Dipyrone). TOTAL PROTEIN (test 7.0 G/DL 6.4-8.2 code=PROT) ALBUMIN (test code=ALB) 2.9 G/DL 3.4-5.0 ALBUMIN/GLOBULIN RATIO 0.7 RATIO 1.2-2.2 (test code=A/G) CALCIUM (test code=CA) 8.8 MG/DL 8.5-10.1 BILIRUBIN TOTAL (test 0.59 MG/DL 0.00-1.00 code=BILT) BILIRUBIN DIRECT (test 0.13 MG/DL 0.00-0.30 code=BILD) BILIRUBIN INDIRECT (test 0.46 MG/DL 0.2-1.3 code=BILIND) SGOT/AST (test code=AST) 332 Unit/L 15-37 SGPT/ALT (test code=ALT) 45 Unit/L 12-78 ALKALINE PHOSPHATASE 125 Unit/L 45-117 TOTAL (test code=ALKP) INDEX HEMOLYSIS (test 1 NORMAL <10 MG 1 NORMAL code=HEMINDEX) Index/DL INDEX ICTERIC (test 1 NORMAL <2 MG 1 NORMAL code=ICTINDEX) Index/DL INDEX LIPEMIA (test 1 NORMAL <50 MG 1 NORMAL code=LIPINDEX) Index/DL [id number] 07:28:00 Test Item Value Reference Range Comments TROPONIN-I (test code=TROPI) NG/ML 0.000-0.045 COMPREHENSIVE METABOLIC [id number] 07:26:00 Test Item Value Reference Range Comments SODIUM (test code=NA) 139.0 mmol/L 133-144 POTASSIUM (test code=K) 3.9 mmol/L 3.5-5.1 CHLORIDE (test code=CL) 111 mmol/L 95-105 CARBON DIOXIDE (test 19 mmol/L 21-32 code=CO2) ANION GAP (test code=GAP) 9.0 GAP calc 4.0-15.0 GLUCOSE (test code=GLU) 119 MG/DL 70-110 BLOOD UREA NITROGEN (test 12 MG/DL 7-18 code=BUN) GLOMERULAR FILTRATION 89 estGFR >60 The estimated glomerular RATE (test code=GFR) filtration rate is computed usingpatient race, age, sex, and serum creatinine. If any of theneeded data elements are missing the Laboratory can notcompute an estimation of the glomerular filtration rate.The GFR value units=ml/min/1.73 meter squared. EstimatedGFR values above 60 should be interpreted as >60, not anexact number.--- DRUG DOSAGE ALERT --- Drug dosage adjustments utilize different calculationparameters. CREATININE (test 0.90 MG/DL 0.55-1.30 Results may be depressed code=CREAT) if patient is takingN-Acetylcysteine (NAC) and Metamizole (Dipyrone). TOTAL PROTEIN (test G/DL 6.4-8.2 code=PROT) ALBUMIN (test code=ALB) 2.9 G/DL 3.4-5.0 ALBUMIN/GLOBULIN RATIO RATIO 1.2-2.2 (test code=A/G) CALCIUM (test code=CA) 8.8 MG/DL 8.5-10.1 BILIRUBIN TOTAL (test MG/DL 0.00-1.00 code=BILT) BILIRUBIN DIRECT (test 0.13 MG/DL 0.00-0.30 code=BILD) BILIRUBIN INDIRECT (test MG/DL 0.2-1.3 code=BILIND) SGOT/AST (test code=AST) Unit/L 15-37 SGPT/ALT (test code=ALT) Unit/L 12-78 ALKALINE PHOSPHATASE Unit/L 45-117 TOTAL (test code=ALKP) INDEX HEMOLYSIS (test 1 NORMAL <10 MG 1 NORMAL code=HEMINDEX) Index/DL INDEX ICTERIC (test 1 NORMAL <2 MG 1 NORMAL code=ICTINDEX) Index/DL INDEX LIPEMIA (test 1 NORMAL <50 MG 1 NORMAL code=LIPINDEX) Index/DL [id number] 07:26:00 Test Item Value Reference Range Comments TROPONIN-I (test code=TROPI) NG/ML 0.000-0.045 CBC W/AUTO [id number] 07:06:00 Test Item Value Reference Range Comments WHITE BLOOD CELL (test code=WBC) 15.4 K/mm3 4.1-12.1 RED BLOOD CELL (test code=RBC) 4.28 M/mm3 3.8-5.5 HEMOGLOBIN (test code=HGB) 12.3 G/DL 10.6-15.8 HEMATOCRIT (test code=HCT) 39.5 % 31.8-47.4 MEAN CELL VOLUME (test code=MCV) 92.3 fL 80.1-101.1 MEAN CELL HGB (test code=MCH) 28.7 pg 25.3-35.3 MEAN CELL HGB CONCETRATION (test code=MCHC) 31.1 G/DL 32.7-35.1 RED CELL DISTRIBUTION WIDTH (test code=RDW) 14.1 % 12.2-16.4 RED CELL DISTRIBUTION WIDTH (test code=RDW-SD) 47.8 fL 35.1-43.9 PLATELET COUNT (test code=PLT) 293 K/mm3 155-337 MEAN PLATELET VOLUME (test code=MPV) 10.5 fL 7.6-10.4 GRANULOCYTE % (test code=GR%) 87.6 % 37.8-82.6 IMMATURE GRANULOCYTE % (test code=IG%) 0.4 % 0.0-2.0 LYMPHOCYTE % (test code=LY%) 7.3 % 14.1-45.4 MONOCYTE % (test code=MO%) 4.3 % 2.5-11.7 EOSINOPHIL % (test code=EO%) 0.1 % 0.0-6.2 BASOPHIL % (test code=BA%) 0.3 % 0.0-2.6 NUCLEATED RBC % (test code=NRBC%) 0.0 /100WBC% 0.0-1.0 GRANULOCYTE # (test code=GR#) 13.53 k/mm3 2.0-13.7 IMMATURE GRANULOCYTE # (test code=IG#) 0.06 K/mm3 0.00-0.03 LYMPHOCYTE # (test code=LY#) 1.12 K/mm3 0.6-3.8 MONOCYTE # (test code=MO#) 0.67 K/mm3 0.11-0.59 EOSINOPHIL # (test code=EO#) 0.01 K/mm3 0.0-0.4 BASOPHIL # (test code=BA#) 0.04 K/mm3 0.0-0.1 NUCLEATED RBC # (test code=NRBC#) 0.00 K/mm3 0.00-0.05 [id number] 00:55:00 Test Item Value Reference Range Comments TROPONIN-I (test 111.000 NG/ML 0.000-0.045 Critical values after the first code=TROPI) occurrence are excluded fromcall documentation requirements for this analyte due to thepatient diagnosis or therapy protocols.REPORTED RESULTS VERIFIED WITH AUTO-DILUTION PROCEDURES.An elevated troponin value alone is not sufficient todiagnose a myocardial infarction. Rather, the patient'sclinical presentation (history, physical exam) and ECGshould be used in conjunction with troponin in thediagnostic evaluation of suspected myocardial infarction. Aserial sampling protocol is recommended to facilitate theidentification of temporal changes in troponin levelscharacteristic of [place]. [id number] 21:24:00 Test Item Value Reference Range Comments TROPONIN-I (test 15.100 NG/ML 0.000-0.045 centrifugation, rerun/recheck from code=TROPI) primary tube. ON 02/18/19 AT 2124, OKSANA CALLED TO LEYDI TARIQ. The report was confirmed by read back protocols Y,N: YES. Critical values after the first occurrence are excluded.An elevated troponin value alone is not sufficient todiagnose a myocardial infarction. Rather, the patient'sclinical presentation (history, physical exam) and ECGshould be used in conjunction with troponin in thediagnostic evaluation of suspected myocardial infarction. Aserial sampling protocol is recommended to facilitate theidentification of temporal changes in troponin levelscharacteristic of [place]. COMPREHENSIVE METABOLIC [id number] 18:32:00 Test Item Value Reference Range Comments SODIUM (test code=NA) 140.0 mmol/L 133-144 POTASSIUM (test code=K) 3.3 mmol/L 3.5-5.1 CHLORIDE (test code=CL) 110 mmol/L 95-105 CARBON DIOXIDE (test 21 mmol/L 21-32 code=CO2) ANION GAP (test code=GAP) 9.0 GAP calc 4.0-15.0 GLUCOSE (test code=GLU) 148 MG/DL 70-110 BLOOD UREA NITROGEN (test 13 MG/DL 7-18 code=BUN) GLOMERULAR FILTRATION 70 estGFR >60 The estimated glomerular RATE (test code=GFR) filtration rate is computed usingpatient race, age, sex, and serum creatinine. If any of theneeded data elements are missing the Laboratory can notcompute an estimation of the glomerular filtration rate.The GFR value units=ml/min/1.73 meter squared. EstimatedGFR values above 60 should be interpreted as >60, not anexact number.--- DRUG DOSAGE ALERT --- Drug dosage adjustments utilize different calculationparameters. CREATININE (test 1.10 MG/DL 0.55-1.30 Results may be depressed code=CREAT) if patient is takingN-Acetylcysteine (NAC) and Metamizole (Dipyrone). TOTAL PROTEIN (test 6.6 G/DL 6.4-8.2 code=PROT) ALBUMIN (test code=ALB) 2.9 G/DL 3.4-5.0 ALBUMIN/GLOBULIN RATIO 0.8 RATIO 1.2-2.2 (test code=A/G) CALCIUM (test code=CA) 8.2 MG/DL 8.5-10.1 BILIRUBIN TOTAL (test 0.25 MG/DL 0.00-1.00 code=BILT) BILIRUBIN DIRECT (test 0.11 MG/DL 0.00-0.30 code=BILD) BILIRUBIN INDIRECT (test 0.14 MG/DL 0.2-1.3 code=BILIND) SGOT/AST (test code=AST) 12 Unit/L 15-37 SGPT/ALT (test code=ALT) 14 Unit/L 12-78 ALKALINE PHOSPHATASE 119 Unit/L 45-117 TOTAL (test code=ALKP) INDEX HEMOLYSIS (test 1 NORMAL <10 MG 1 NORMAL code=HEMINDEX) Index/DL INDEX ICTERIC (test 1 NORMAL <2 MG 1 NORMAL code=ICTINDEX) Index/DL INDEX LIPEMIA (test 1 NORMAL <50 MG 1 NORMAL code=LIPINDEX) Index/DL COMPREHENSIVE METABOLIC [id number] 18:29:00 Test Item Value Reference Range Comments SODIUM (test code=NA) 140.0 mmol/L 133-144 POTASSIUM (test code=K) 3.3 mmol/L 3.5-5.1 CHLORIDE (test code=CL) 110 mmol/L 95-105 CARBON DIOXIDE (test code=CO2) 21 mmol/L 21-32 ANION GAP (test code=GAP) 9.0 GAP calc 4.0-15.0 GLUCOSE (test code=GLU) 148 MG/DL 70-110 BLOOD UREA NITROGEN (test code=BUN) 13 MG/DL 7-18 CREATININE (test code=CREAT) MG/DL 0.55-1.30 TOTAL PROTEIN (test code=PROT) G/DL 6.4-8.2 ALBUMIN (test code=ALB) 2.9 G/DL 3.4-5.0 ALBUMIN/GLOBULIN RATIO (test RATIO 1.2-2.2 code=A/G) CALCIUM (test code=CA) 8.2 MG/DL 8.5-10.1 BILIRUBIN TOTAL (test code=BILT) MG/DL 0.00-1.00 BILIRUBIN DIRECT (test code=BILD) 0.11 MG/DL 0.00-0.30 BILIRUBIN INDIRECT (test MG/DL 0.2-1.3 code=BILIND) SGOT/AST (test code=AST) Unit/L 15-37 SGPT/ALT (test code=ALT) Unit/L 12-78 ALKALINE PHOSPHATASE TOTAL (test Unit/L 45-117 code=ALKP) INDEX HEMOLYSIS (test 1 NORMAL <10 MG Index/DL 1 NORMAL code=HEMINDEX) INDEX ICTERIC (test code=ICTINDEX) 1 NORMAL <2 MG Index/DL 1 NORMAL INDEX LIPEMIA (test code=LIPINDEX) 1 NORMAL <50 MG Index/DL 1 NORMAL PT AND [id number] 18:14:00 Test Item Value Reference Range Comments PT PATIENT (test 12.2 SECONDS 9.4-12.5 code=PTP) INTERNATIONAL NORMAL 1.05 INR Unit 0.88-1.13 RATIO (test code=INR) T herapeutic range for INR is dependent upon the situation.2.0-3.0 Prophylaxis / venous thromboembolism, Treatment of DVT, Acute myocardial infarction stroke prevention, Systemic embolism prevention in fibrillation3.0-4.5 AMI recurrence prevention, Systemic embolism prevention in prosthetic heart 3.0-5.4 AMI mortality reduction THROMBOPLASTIN TIME 23.5 SECONDS 24-37.7 THERAPEUTIC RANGE FOR PARTIAL (test code=PTT) UNFRACTIONATED HEPARIN=50.5-83.6 SEC This test is not recommended to monitor low molecularweight heparin or danaparoid. Order LMWH test COLLECTION THROUGH LINES THAT HAVE BEEN PREVIOUSLY FLUSHEDWITH HEPARIN SHOULD BE AVOIDED DUE TO POSSIBLE HEPARINCONTAMINATION - CT HEAD/BRAIN W/O [id number] 18:12:00 Patient Name: ANAHY PONCE Unit No: [id number] EXAMS: CPT CODE: [id number] CT HEAD/BRAIN W/O CONT [id number] Location: T18 CT head, 02/18/19 COMPARISON EXAMS:Noneof the brain TECHNIQUE: CT examination of the brain was performed without contrast on a helical scanner. Scanning conducted from skull base to vertex in the axial plane acquiring contiguous 5mm slice thickness . The examination was performed on a [facility] helical CT scanner utilizing low-dose radiation technique. Automatic exposure control timing was utilized to minimize radiation dose. CLINICAL HISTORY: The patient is status post fall onPlavix. FINDINGS: No positive mass-effect, midline shift, extra-axial fluid collections or intracranial hemorrhages seen. In particular, no subarachnoid hemorrhage is identified. No intra or extra-axial masses. Bone windows unremarkable. No significant sinus disease is noted. No acute territorial infarction is seen. Small hypodensity in the region of the medial middle aspect of left lateral basal ganglia concern for a tiny age-indeterminate lacunar infarct more likely at least subacute having a somewhat well-defined margins IMPRESSION: No intracranial hemorrhage or space-occupying process. at 1812 Reported and signed by: Izabel Murray M.D. CC: Devin Loredo DO Dictated Date/Time: 02/18/2019 (1811) Technologist: Sarai Larry - Agency CTDI: 46.15 DLP: 757.79 Trnscrpt: 02/18/2019 (1811) [email or web address] ELPIDIO Dorado NAME: ANAHY PONCE [address] [place] [address] PHYS: YI Wiseman FacundoDevin [place], [place] [address] : 1965 AGE: 53 SEX: M LOC: B.[employer] PHONE # : [phone] EXAM DATE: 02/18/2019 STATUS: PRE ER FAX #: [phone] RAD #: D/C DT PAGE 1 Signed Report Patient Name: ANAHY PONCE Unit No: [id number] EXAMS: CPT CODE: [id number] CT HEAD/BRAIN W/O CONT [id number] <Continued& gt; Orig Print D/T: S: 02/18/2019 (1814) ELPIDIO Dorado NAME: ANAHY PONCE [address] [place] [address] PHYS: YI Wiseman FacundoDevin [place], [place] [address] : 1965 AGE: 53 SEX: M LOC: B.[facility] PHONE #: [phone] EXAM DATE: 02/18/2019 STATUS: PRE ER FAX #: [phone] RAD # : D/C DT PAGE 2 Signed ReportTROPONIN I [id number] 18:08:00 Test Item Value Reference Range Comments TROPONIN I RAPID (test 0.01 NG/ML 0.00-0.07 An elevated troponin value alone is code=TROPIRAP) not sufficient todiagnose a myocardial infarction. Rather, the patient'sclinical presentation (history, physical exam) and ECGshould be used in conjunction with troponin in thediagnostic evaluation of suspected myocardial infarction. Aserial sampling protocol is recommended to facilitate theidentification of temporal changes in troponin levelscharacteristic of [place]. CHEMISTRY 7 [id number] 18:03:00 Test Item Value Reference Range Comments IONIZED CALCIUM (test code=CAIABG) mmol/L 1.13-1.32 ISTAT-TCO2 VENOUS (test code=TCO2VP) MMOL/L 21-32 ISTAT-SODIUM (test code=NAP) MMOL/L 135-148 ISTAT-POTASSIUM (test code=KP) MMOL/L 3.5-5.9 ISTAT-CHLORIDE (test code=CLP) MMOL/L 98-106 ISTAT-ANION GAP (test code=GAPP) MEQ/L 10-20 ISTAT-GLUCOSE (test code=GLUP) MG/DL 70-119 ISTAT-BUN (test code=BUNP) MG/DL 8-28 BEDSIDE CREATININE (test code=CREATBED) MG/DL 0.6-1.2 GLOMERULAR FILTRATION RATE POC (test code=GFRBED) 70 56-130 CHEMISTRY 7 [id number] 18:03:00 Test Item Value Reference Range Comments IONIZED CALCIUM (test 1.15 mmol/L 1.13-1.32 code=CAIABG) ISTAT-TCO2 VENOUS (test 21 MMOL/L 21-32 code=TCO2VP) ISTAT-SAMPLE SOURCE (test UNKNOWN SPEC TYPE Descript Specimen code=SRCIST) ISTAT-SODIUM (test code=NAP) 142 MMOL/L 135-148 ISTAT-POTASSIUM (test code=KP) 3.4 MMOL/L 3.5-5.9 ISTAT-CHLORIDE (test code=CLP) 107 MMOL/L 98-106 ISTAT-ANION GAP (test code=GAPP) 18.0 MEQ/L 10-20 ISTAT-GLUCOSE (test code=GLUP) 147 MG/DL 70-119 ISTAT-BUN (test code=BUNP) 12 MG/DL 8-28 BEDSIDE CREATININE (test 1.1 MG/DL 0.6-1.2 code=CREATBED) GLOMERULAR FILTRATION RATE POC 70 56-130 (test code=GFRBED) CBC W/AUTO [id number] 18:03:00 Test Item Value Reference Range Comments WHITE BLOOD CELL (test code=WBC) 10.1 K/mm3 4.1-12.1 RED BLOOD CELL (test code=RBC) 3.69 M/mm3 3.8-5.5 HEMOGLOBIN (test code=HGB) 10.9 G/DL 10.6-15.8 HEMATOCRIT (test code=HCT) 33.3 % 31.8-47.4 MEAN CELL VOLUME (test code=MCV) 90.2 fL 80.1-101.1 MEAN CELL HGB (test code=MCH) 29.5 pg 25.3-35.3 MEAN CELL HGB CONCETRATION (test code=MCHC) 32.7 G/DL 32.7-35.1 RED CELL DISTRIBUTION WIDTH (test code=RDW) 13.8 % 12.2-16.4 RED CELL DISTRIBUTION WIDTH (test code=RDW-SD) 45.8 fL 35.1-43.9 PLATELET COUNT (test code=PLT) 370 K/mm3 155-337 MEAN PLATELET VOLUME (test code=MPV) 10.2 fL 7.6-10.4 GRANULOCYTE % (test code=GR%) 64.3 % 37.8-82.6 IMMATURE GRANULOCYTE % (test code=IG%) 0.5 % 0.0-2.0 LYMPHOCYTE % (test code=LY%) 26.5 % 14.1-45.4 MONOCYTE % (test code=MO%) 5.9 % 2.5-11.7 EOSINOPHIL % (test code=EO%) 2.1 % 0.0-6.2 BASOPHIL % (test code=BA%) 0.7 % 0.0-2.6 NUCLEATED RBC % (test code=NRBC%) 0.0 /100WBC% 0.0-1.0 GRANULOCYTE # (test code=GR#) 6.49 k/mm3 2.0-13.7 IMMATURE GRANULOCYTE # (test code=IG#) 0.05 K/mm3 0.00-0.03 LYMPHOCYTE # (test code=LY#) 2.67 K/mm3 0.6-3.8 MONOCYTE # (test code=MO#) 0.59 K/mm3 0.11-0.59 EOSINOPHIL # (test code=EO#) 0.21 K/mm3 0.0-0.4 BASOPHIL # (test code=BA#) 0.07 K/mm3 0.0-0.1 NUCLEATED RBC # (test code=NRBC#) 0.00 K/mm3 0.00-0.05 B-TYPE NATRIURETIC FACTOR (BNP)2017-04-16 16:37:00 Test Item Value Reference Range Comments B-TYPE NATRIURETIC PEPTIDE (BEAKER) (test 497 pg/mL 0-100 fqjl=222) [id number] 15:20:00 Test Item Value Reference Range Comments MAGNESIUM (BEAKER) (test rltg=219) 1.8 mg/dL 1.6-2.6 BASIC METABOLIC [id number] 15:20:00 Test Item Value Reference Range Comments SODIUM (BEAKER) (test 137 meq/L 136-145 ltgz=331) POTASSIUM (BEAKER) (test 4.0 meq/L 3.5-5.1 kzgx=319) CHLORIDE (BEAKER) (test 101 meq/L 98-107 gjky=846) CO2 (BEAKER) (test 28 meq/L 22-29 rbqi=097) BLOOD UREA NITROGEN 15 mg/dL 7-21 (BEAKER) (test cmyd=052) CREATININE (BEAKER) (test 1.08 mg/dL 0.57-1.25 nwbl=946) GLUCOSE RANDOM (BEAKER) 81 mg/dL 70-105 (test yvio=341) CALCIUM (BEAKER) (test 9.7 mg/dL 8.4-10.2 niwa=203) EGFR (BEAKER) (test 72 mL/min/1.73 sq m ESTIMATED GFR IS NOT zcdz=1359) ACCURATE CREATININE CLEARANCE IN PREDICTING GLOMERULAR FILTRATION RATE. ESTIMATED GFR IS NOT APPLICABLE FOR DIALYSIS PATIENTS. TROPONIN [id number] 04:40:00 Test Item Value Reference Range Comments TROPONIN I (BEAKER) (test hflf=595) 3.39 ng/mL 0.00-0.03 Troponin I (TnI) levels [...] failure, acidosis, acute neurological disease, and persistent tachyarrhythmia.[id number] 04:23:00 Test Item Value Reference Range Comments MAGNESIUM (BEAKER) (test addx=326) 2.2 mg/dL 1.6-2.6 BASIC METABOLIC [id number] 04:23:00 Test Item Value Reference Range Comments SODIUM (BEAKER) (test 138 meq/L 136-145 vwff=104) POTASSIUM (BEAKER) (test 3.7 meq/L 3.5-5.1 rhjt=791) CHLORIDE (BEAKER) (test 105 meq/L 98-107 dmgb=820) CO2 (BEAKER) (test 21 meq/L 22-29 rujs=232) BLOOD UREA NITROGEN 35 mg/dL 7-21 (BEAKER) (test veiv=500) CREATININE (BEAKER) (test 1.11 mg/dL 0.57-1.25 fnsy=672) GLUCOSE RANDOM (BEAKER) 86 mg/dL 70-105 (test sznm=275) CALCIUM (BEAKER) (test 9.3 mg/dL 8.4-10.2 hucm=264) EGFR (BEAKER) (test 70 mL/min/1.73 sq m ESTIMATED GFR IS NOT vvkf=8423) ACCURATE CREATININE CLEARANCE IN PREDICTING GLOMERULAR FILTRATION RATE. ESTIMATED GFR IS NOT APPLICABLE FOR DIALYSIS PATIENTS. CBC (HEMOGRAM ONLY)2017-04-07 04:00:00 Test Item Value Reference Range Comments WHITE BLOOD CELL COUNT (BEAKER) (test pfma=717) 12.6 K/ L 3.5-10.5 RED BLOOD CELL COUNT (BEAKER) (test uzgf=010) 3.85 M/ L 4.63-6.08 HEMOGLOBIN (BEAKER) (test yfzc=470) 10.9 GM/DL 13.7-17.5 HEMATOCRIT (BEAKER) (test vjao=922) 34.2 % 40.1-51.0 MEAN CORPUSCULAR VOLUME (BEAKER) (test uogz=084) 88.8 fL 79.0-92.2 MEAN CORPUSCULAR HEMOGLOBIN (BEAKER) (test 28.3 pg 25.7-32.2 rqui=432) MEAN CORPUSCULAR HEMOGLOBIN CONC (BEAKER) (test 31.9 GM/DL 32.3-36.5 gvii=481) RED CELL DISTRIBUTION WIDTH (BEAKER) (test 15.5 % 11.6-14.4 eybl=655) PLATELET COUNT (BEAKER) (test oyzv=032) 276 K/CU MM 150-450 MEAN PLATELET VOLUME (BEAKER) (test xakb=465) 10.9 fL 9.4-12.4 NUCLEATED RED BLOOD CELLS (BEAKER) (test 0 /100 WBC 0-0 jxgk=734) TROPONIN [id number] 11:34:00 Test Item Value Reference Range Comments TROPONIN I (BEAKER) (test uswa=810) 4.01 ng/mL 0.00-0.03 Troponin I (TnI) levels [...] failure, acidosis, acute neurological disease, and persistent tachyarrhythmia.[id number] 06:25:00 Test Item Value Reference Range Comments MAGNESIUM (BEAKER) (test hthr=981) 2.0 mg/dL 1.6-2.6 BASIC METABOLIC [id number] 06:25:00 Test Item Value Reference Range Comments SODIUM (BEAKER) (test 139 meq/L 136-145 ckvb=907) POTASSIUM (BEAKER) (test 3.7 meq/L 3.5-5.1 yzwk=032) CHLORIDE (BEAKER) (test 106 meq/L 98-107 pesi=547) CO2 (BEAKER) (test 21 meq/L 22-29 gabb=987) BLOOD UREA NITROGEN 22 mg/dL 7-21 (BEAKER) (test gaut=575) CREATININE (BEAKER) (test 0.91 mg/dL 0.57-1.25 itqd=261) GLUCOSE RANDOM (BEAKER) 81 mg/dL 70-105 (test qftz=186) CALCIUM (BEAKER) (test 9.5 mg/dL 8.4-10.2 ziak=851) EGFR (BEAKER) (test 88 mL/min/1.73 sq m ESTIMATED GFR IS NOT nbcg=7169) ACCURATE CREATININE CLEARANCE IN PREDICTING GLOMERULAR FILTRATION RATE. ESTIMATED GFR IS NOT APPLICABLE FOR DIALYSIS PATIENTS. CBC (HEMOGRAM ONLY)2017-04-06 05:46:00 Test Item Value Reference Range Comments WHITE BLOOD CELL COUNT (BEAKER) (test hncs=464) 15.7 K/ L 3.5-10.5 RED BLOOD CELL COUNT (BEAKER) (test ehlf=474) 4.09 M/ L 4.63-6.08 HEMOGLOBIN (BEAKER) (test sgpj=316) 11.6 GM/DL 13.7-17.5 HEMATOCRIT (BEAKER) (test nlhp=957) 37.0 % 40.1-51.0 MEAN CORPUSCULAR VOLUME (BEAKER) (test hrvr=154) 90.5 fL 79.0-92.2 MEAN CORPUSCULAR HEMOGLOBIN (BEAKER) (test 28.4 pg 25.7-32.2 ujqv=786) MEAN CORPUSCULAR HEMOGLOBIN CONC (BEAKER) (test 31.4 GM/DL 32.3-36.5 dzkb=479) RED CELL DISTRIBUTION WIDTH (BEAKER) (test 15.7 % 11.6-14.4 qnvm=827) PLATELET COUNT (BEAKER) (test hbvu=369) 290 K/CU MM 150-450 MEAN PLATELET VOLUME (BEAKER) (test skjy=651) 11.2 fL 9.4-12.4 NUCLEATED RED BLOOD CELLS (BEAKER) (test 0 /100 WBC 0-0 abyh=995) [id number] 07:49:00 Test Item Value Reference Range Comments MAGNESIUM (BEAKER) (test zebd=722) 2.0 mg/dL 1.6-2.6 TROPONIN [id number] 05:48:00 Test Item Value Reference Range Comments TROPONIN I (BEAKER) (test jtxd=901) 8.11 ng/mL 0.00-0.03 Troponin I (TnI) levels [...] acute neurological disease, and persistent tachyarrhythmia.COMPREHENSIVE METABOLIC [id number] 05:42:00 Test Item Value Reference Range Comments TOTAL PROTEIN (BEAKER) 6.9 gm/dL 6.0-8.3 (test vbdj=053) ALBUMIN (BEAKER) (test 3.5 g/dL 3.5-5.0 ffli=3456) ALKALINE PHOSPHATASE 118 U/L 40-150 (BEAKER) (test xblh=346) BILIRUBIN TOTAL (BEAKER) 0.8 mg/dL 0.2-1.2 (test iyzw=566) SODIUM (BEAKER) (test 138 meq/L 136-145 hwfl=028) POTASSIUM (BEAKER) (test 3.9 meq/L 3.5-5.1 xbtk=898) CHLORIDE (BEAKER) (test 107 meq/L 98-107 vkax=074) CO2 (BEAKER) (test 23 meq/L 22-29 jlyd=774) BLOOD UREA NITROGEN 17 mg/dL 7-21 (BEAKER) (test qorb=688) CREATININE (BEAKER) (test 0.80 mg/dL 0.57-1.25 ednu=659) GLUCOSE RANDOM (BEAKER) 108 mg/dL 70-105 (test zrsc=850) CALCIUM (BEAKER) (test 8.8 mg/dL 8.4-10.2 hzbf=230) AST (SGOT) (BEAKER) (test 45 U/L 5-34 moqy=669) ALT (SGPT) (BEAKER) (test 17 U/L 6-55 xqgz=580) EGFR (BEAKER) (test 102 mL/min/1.73 sq ESTIMATED GFR IS NOT kwbb=5392) m ACCURATE CREATININE CLEARANCE IN PREDICTING GLOMERULAR FILTRATION RATE. ESTIMATED GFR IS NOT APPLICABLE FOR DIALYSIS PATIENTS. RAD, CHEST, 1 VIEW, NON [id number] 05:07:00Reason for exam:->IABPFINAL REPORT RAD, CHEST, 1 [...] of the mediastinal contours.Additional findings:None. Signed: JR Alfredo, Johana Avila Verified Date/Time: 04/05/2017 05:07:01 Reading Location: [facility] C013Y CT Body Reading Room [id number] 04:15:00 Test Item Value Reference Range Comments FERRITIN (BEAKER) (test kqqp=299) 141 ng/mL 5-275 CREATINE KINASE (CK), TOTAL AND [id number] 04:04:00 Test Item Value Reference Range Comments CREATINE KINASE TOTAL (BEAKER) (test liyo=918) 228 U/L 29-200 CREATINE KINASE-MB (BEAKER) (test fgbd=034) 18.7 ng/mL 0.0-6.6 CREATINE KINASE-MB INDEX (BEAKER) (test jphl=428) 8.2 % CK-MB Reference Range:<6.7 Normal6.7-10.0 Borderline>10.0 AbnormalIRON, TIBC, % SAT. (WITHOUT FERRITIN)2017-04-05 04:01:00 Test Item Value Reference Range Comments IRON (BEAKER) (test mfor=095) 16 ug/dL 40-160 TOTAL IRON BINDING CAPACITY (BEAKER) (test 223 ug/dL 250-450 oytn=985) IRON % SATURATION (2) (BEAKER) (test sbrb=9281) 7 % 20-55 [id number] 03:56:00 Test Item Value Reference Range Comments MAGNESIUM (BEAKER) (test izwq=033) 1.6 mg/dL 1.6-2.6 CBC W/PLT COUNT & AUTO [id number] 03:38:00 Test Item Value Reference Range Comments WHITE BLOOD CELL COUNT (BEAKER) (test cryr=307) 13.4 K/ L 3.5-10.5 RED BLOOD CELL COUNT (BEAKER) (test ygle=165) 3.33 M/ L 4.63-6.08 HEMOGLOBIN (BEAKER) (test hfjm=684) 9.5 GM/DL 13.7-17.5 HEMATOCRIT (BEAKER) (test karw=459) 30.1 % 40.1-51.0 MEAN CORPUSCULAR VOLUME (BEAKER) (test ixar=632) 90.4 fL 79.0-92.2 MEAN CORPUSCULAR HEMOGLOBIN (BEAKER) (test 28.5 pg 25.7-32.2 nudz=383) MEAN CORPUSCULAR HEMOGLOBIN CONC (BEAKER) (test 31.6 GM/DL 32.3-36.5 crkf=779) RED CELL DISTRIBUTION WIDTH (BEAKER) (test 15.7 % 11.6-14.4 qbyo=617) PLATELET COUNT (BEAKER) (test eszn=955) 252 K/CU MM 150-450 MEAN PLATELET VOLUME (BEAKER) (test rmey=465) 11.3 fL 9.4-12.4 NUCLEATED RED BLOOD CELLS (BEAKER) (test 0 /100 WBC 0-0 gxgg=023) NEUTROPHILS RELATIVE PERCENT (BEAKER) (test 86 % qeku=839) LYMPHOCYTES RELATIVE PERCENT (BEAKER) (test 8 % rpws=073) MONOCYTES RELATIVE PERCENT (BEAKER) (test 5 % dbeb=751) EOSINOPHILS RELATIVE PERCENT (BEAKER) (test 0 % asbx=090) BASOPHILS RELATIVE PERCENT (BEAKER) (test 0 % rcpt=979) NEUTROPHILS ABSOLUTE COUNT (BEAKER) (test 11.52 K/ L 1.78-5.38 kncg=863) LYMPHOCYTES ABSOLUTE COUNT (BEAKER) (test 1.07 K/ L 1.32-3.57 icqw=716) MONOCYTES ABSOLUTE COUNT (BEAKER) (test 0.63 K/ L 0.30-0.82 wiex=175) EOSINOPHILS ABSOLUTE COUNT (BEAKER) (test 0.06 K/ L 0.04-0.54 qqin=523) BASOPHILS ABSOLUTE COUNT (BEAKER) (test 0.06 K/ L 0.01-0.08 xjid=450) IMMATURE GRANULOCYTES-RELATIVE PERCENT (BEAKER) 0 % 0-1 (test anej=7949) TROPONIN [id number] 19:07:00 Test Item Value Reference Range Comments TROPONIN I (BEAKER) (test aqhh=331) 11.89 ng/mL 0.00-0.03 Troponin I (TnI) levels [...] and persistent tachyarrhythmia.CREATINE KINASE (CK), TOTAL AND [id number] 19:06:00 Test Item Value Reference Range Comments CREATINE KINASE TOTAL (BEAKER) (test oteq=879) 485 U/L 29-200 CREATINE KINASE-MB (BEAKER) (test ewsk=201) 59.5 ng/mL 0.0-6.6 CREATINE KINASE-MB INDEX (BEAKER) (test urek=188) 12.3 % CK-MB Reference Range:<6.7 Normal6.7-10.0 Borderline>10.0 AbnormalHEMOGLOBIN [id number] 17:50:00 Test Item Value Reference Range Comments HEMOGLOBIN A1C (BEAKER) (test ljip=507) 5.3 % 4.3-6.1 RAD, CHEST, 1 VIEW, NON [id number] 17:49:00Reason for exam:->eval for PVCShould this be [...] Jimenez MDReportVerified Date/Time: 04/04/2017 17:49:35 Reading Location: [facility] Radiology Reading Room TROPONIN [id number] 11:58:00 Test Item Value Reference Range Comments TROPONIN I (BEAKER) (test gitn=196) 4.95 ng/mL 0.00-0.03 Troponin I (TnI) levels [...] and persistent tachyarrhythmia.CREATINE KINASE (CK), TOTAL AND [id number] 11:49:00 Test Item Value Reference Range Comments CREATINE KINASE TOTAL (BEAKER) (test owjf=345) 332 U/L 29-200 CREATINE KINASE-MB (BEAKER) (test kwmk=466) 40.7 ng/mL 0.0-6.6 CREATINE KINASE-MB INDEX (BEAKER) (test rvxq=946) 12.3 % CK-MB Reference Range:<6.7 Normal6.7-10.0 Borderline>10.0 AbnormalCBC W/PLT COUNT & AUTO [id number] 11:49:00 Test Item Value Reference Range Comments WHITE BLOOD CELL COUNT (BEAKER) (test udbm=960) 12.1 K/ L 3.5-10.5 RED BLOOD CELL COUNT (BEAKER) (test ztwp=554) 3.67 M/ L 4.63-6.08 HEMOGLOBIN (BEAKER) (test wvsz=843) 10.5 GM/DL 13.7-17.5 HEMATOCRIT (BEAKER) (test yydd=554) 33.8 % 40.1-51.0 MEAN CORPUSCULAR VOLUME (BEAKER) (test ljoy=854) 92.1 fL 79.0-92.2 MEAN CORPUSCULAR HEMOGLOBIN (BEAKER) (test 28.6 pg 25.7-32.2 olyd=876) MEAN CORPUSCULAR HEMOGLOBIN CONC (BEAKER) (test 31.1 GM/DL 32.3-36.5 rezt=277) RED CELL DISTRIBUTION WIDTH (BEAKER) (test 15.7 % 11.6-14.4 dltk=175) PLATELET COUNT (BEAKER) (test tyow=491) 274 K/CU MM 150-450 MEAN PLATELET VOLUME (BEAKER) (test oxvu=120) 11.3 fL 9.4-12.4 NUCLEATED RED BLOOD CELLS (BEAKER) (test 0 /100 WBC 0-0 oodi=070) NEUTROPHILS RELATIVE PERCENT (BEAKER) (test 89 % cpmd=144) LYMPHOCYTES RELATIVE PERCENT (BEAKER) (test 8 % eqnn=267) MONOCYTES RELATIVE PERCENT (BEAKER) (test 2 % mywu=264) EOSINOPHILS RELATIVE PERCENT (BEAKER) (test 0 % otqs=450) BASOPHILS RELATIVE PERCENT (BEAKER) (test 0 % ywxz=097) NEUTROPHILS ABSOLUTE COUNT (BEAKER) (test 10.81 K/ L 1.78-5.38 eqrg=332) LYMPHOCYTES ABSOLUTE COUNT (BEAKER) (test 0.92 K/ L 1.32-3.57 pohw=370) MONOCYTES ABSOLUTE COUNT (BEAKER) (test 0.24 K/ L 0.30-0.82 hmxr=328) EOSINOPHILS ABSOLUTE COUNT (BEAKER) (test 0.02 K/ L 0.04-0.54 rooq=682) BASOPHILS ABSOLUTE COUNT (BEAKER) (test 0.04 K/ L 0.01-0.08 sbkj=430) IMMATURE GRANULOCYTES-RELATIVE PERCENT (BEAKER) 1 % 0-1 (test tpqw=6866) B-TYPE NATRIURETIC FACTOR (BNP)2017-04-04 11:48:00 Test Item Value Reference Range Comments B-TYPE NATRIURETIC PEPTIDE (BEAKER) (test 741 pg/mL 0-100 xhxh=634) [id number] 11:42:00 Test Item Value Reference Range Comments PHOSPHORUS (BEAKER) (test cyan=176) 2.2 mg/dL 2.3-4.7 [id number] 11:42:00 Test Item Value Reference Range Comments MAGNESIUM (BEAKER) (test oxdt=636) 2.1 mg/dL 1.6-2.6 COMPREHENSIVE METABOLIC [id number] 11:42:00 Test Item Value Reference Range Comments TOTAL PROTEIN (BEAKER) 7.4 gm/dL 6.0-8.3 (test oxsg=967) ALBUMIN (BEAKER) (test 3.7 g/dL 3.5-5.0 gpnp=9784) ALKALINE PHOSPHATASE 120 U/L 40-150 (BEAKER) (test azck=933) BILIRUBIN TOTAL (BEAKER) 0.4 mg/dL 0.2-1.2 (test cyxm=584) SODIUM (BEAKER) (test 137 meq/L 136-145 xdbk=124) POTASSIUM (BEAKER) (test 4.7 meq/L 3.5-5.1 fbsx=137) CHLORIDE (BEAKER) (test 108 meq/L 98-107 kwmd=743) CO2 (BEAKER) (test 22 meq/L 22-29 qpmq=382) BLOOD UREA NITROGEN 17 mg/dL 7-21 (BEAKER) (test sefz=636) CREATININE (BEAKER) (test 0.99 mg/dL 0.57-1.25 wywk=067) GLUCOSE RANDOM (BEAKER) 121 mg/dL 70-105 (test mkba=816) CALCIUM (BEAKER) (test 9.1 mg/dL 8.4-10.2 tgyl=411) AST (SGOT) (BEAKER) (test 35 U/L 5-34 jixr=267) ALT (SGPT) (BEAKER) (test 14 U/L 6-55 wjcf=542) EGFR (BEAKER) (test 80 mL/min/1.73 sq m ESTIMATED GFR IS NOT ties=9653) ACCURATE CREATININE CLEARANCE IN PREDICTING GLOMERULAR FILTRATION RATE. ESTIMATED GFR IS NOT APPLICABLE FOR DIALYSIS PATIENTS. LIPID [id number] 11:42:00 Test Item Value Reference Range Comments TRIGLYCERIDES (BEAKER) (test aozb=076) 59 mg/dL CHOLESTEROL (BEAKER) (test bdqw=330) 215 mg/dL HDL CHOLESTEROL (BEAKER) (test dolc=167) 30 mg/dL LDL CHOLESTEROL CALCULATED (BEAKER) (test 173 mg/dL cyja=126) Triglyceride Reference Range: Low Risk <150 Borderline 150- 199 High Risk 200-499 Very High Risk >=500Cholesterol Reference Range: Low Risk <200 Borderline 200-239 High Risk > 240HDL Cholesterol Reference Range: Low Risk >=60 High Risk <40LDL Cholesterol Reference Range: Optimal <100 Near Optimal 100-129 Borderline 130-159 High 160-189 Very High [id number] 11:31:00 Test Item Value Reference Range Comments PARTIAL THROMBOPLASTIN TIME (BEAKER) (test 165.8 seconds 22.5-36.0 kgkm=036) PROTHROMBIN TIME/[id number] 11:25:00 Test Item Value Reference Range Comments PROTIME (BEAKER) (test nlop=321) 16.0 seconds 11.7-14.7 INR (BEAKER) (test tjhd=955) 1.3 <=5.9 RECOMMENDED COUMADIN/WARFARIN INR THERAPY RANGESSTANDARD DOSE: 2.0 - 3.0 Includes: PROPHYLAXIS forvenous thrombosis, systemic embolization; TREATMENT for venous thrombosis and/or pulmonary embolus.HIGH RISK: Target INR is 2.5-3.5 for patients with mechanical heart valves.[id number] 10:07:00 Test Item Value Reference Range Comments ACTIVATED CLOTTING TIME 197 sec TESTED AT [place] [address] [facility] [employer]) (test ncoy=949) [place] [address] [id number] 10:07:00 Test Item Value Reference Range Comments ACTIVATED CLOTTING TIME 202 sec TESTED AT [facility] [address] [employer]) (test zeeo=420) [place] [address]
--- NOTE | 2019-04-13 11:28 | RAD REPORT ---
EXAM DESCRIPTION: RAD - Chest Pa And Lat (2 Views) - 04/13/2019 11:21 am CLINICAL HISTORY: SOB Chest pain. COMPARISON: Chest Single View dated 02/05/2019; Chest Single View dated 04/04/2017 TECHNIQUE: PA and lateral views of the chest were obtained. FINDINGS: The lungs are hyperexpanded compatible with COPD. The heart is upper limit of normal in si ze. No fracture or aggressive bony process. IMPRESSION: COPD without acute process identified.
[2019-04-13] MEDS ORDERED: METHYLPREDNISOLONE 125 MG INJ ONE (12:07)
[2019-04-13] MEDS ORDERED: LEVALBUTEROL 1.25 MG/3 ML NEB ONE (12:07)
--- NOTE | 2019-04-13 12:59 | EKG ---
Test Date: 2019-04-13 Test Time: 12:56:55 Pony Ride Attendant: ROSE MEASUREMENT RESULTS: Intervals: Rate: 95 DE: 166 QRSD: 86 QT: 358 QTc: 449 [place]: P: 73 DE: 166 QRS: 82 T: 73 INTERPRETIVE STATEMENTS: Sinus rhythm with premature atrial complexes T wave abnormality, consider anterior ischemia Abnormal ECG Compared to ECG 02/05/2019 17:39:46 Atrial premature complex(es) now present Myocardial infarct finding no longer present Prolonged QT interval no longer present T-wave abnormality still present Possible ischemia still present Electronically Signed On 04-13-19 12:58:32 HULL DRAFTER by Reynold Devi
--- NOTE | 2019-04-13 13:02 | ER ---
Nurse's Notes [facility] Name: Eddie Isaacs Age: 53 yrs Sex: Male : 1965 Arrival Date: 04/13/2019 Time: 10:20 Bed 18 Private MD: Diagnosis: Chronic obstructive pulmonary disease with (acute) exacerbation Presentation: 04/13 10:44 Presenting complaint: Patient states: Cough, congestion, and shortness of breath with aj1 activity for the past week. Transition of care: patient was not received from another setting of care. Onset of symptoms was 2018. Risk Assessment: Do you want to hurt yourself or someone else? Patient reports no desire to harm self or others. Initial Sepsis Screen: Does the patient meet any 2 criteria? HR > 90 bpm. No. Patient's initial sepsis screen is negative. Does the patient have a suspected source of infection? Yes: Productive cough/pneumonia. Care prior to arrival: None. 10:44 Method Of Arrival: Ambulatory aj1 10:44 Acuity: DENICE 4 aj1 Triage Assessment: 10:50 General: Appears in no apparent distress. comfortable, Behavior is calm, cooperative, aj1 appropriate for age. Pain: Denies pain. EENT: Reports nasal congestion nasal discharge. Neuro: Level of Consciousness is awake, alert, obeys commands, Oriented to person, place, time, situation. Cardiovascular: Patient's skin is warm and dry. Respiratory: Reports shortness of breath on exertion cough that is productive, Airway is patent Respiratory effort is even, unlabored, Respiratory pattern is regular, symmetrical. Historical: - Allergies: 10:50 No Known Allergies; aj1 - Home Meds: 10:50 Plavix Oral [Active]; Simvastatin Oral [Active]; aj1 - PMHx: 10:50 Myocardial infarction; Hyperlipidemia; Hypertension; aj1 - PSHx: 10:50 Knee surgery; sinus surgery; aj1 - Immunization history:: Flu vaccine is not up to date. - Social history:: Smoking status: Patient uses tobacco products, smokes one pack cigarettes per day. - Ebola Screening: : Patient denies travel to an Ebola-affected area in the 21 days before illness onset. - Family history:: not pertinent. - Hospitalizations: : No recent hospitalization is reported. Screenin:44 Abuse screen: Denies threats or abuse. Denies injuries from another. Nutritional sv screening: No deficits noted. Tuberculosis screening: No symptoms or risk factors identified. Fall Risk None identified. Assessment: 12:05 General: Appears in no apparent distress. comfortable, Behavior is calm, cooperative, sv appropriate for age. Pain: Denies pain. Neuro: Level of Consciousness is awake, alert, obeys commands, Oriented to person, place, time, situation, Moves all extremities. Full function Gait is steady, Speech is normal. Cardiovascular: Heart tones S1 S2 present. Respiratory: Airway is patent Respiratory effort is even, unlabored, Respiratory pattern is regular, symmetrical, Breath sounds are clear in left posterior upper lobe and right posterior upper lobe Breath sounds are diminished in right posterior middle lobe and right posterior lower lobe Breath sounds with wheezes in left posterior lower lobe. Respiratory: Reports shortness of breath on exertion cough that is non-productive. Derm: Skin is pink, warm \T\ dry. 12:30 Reassessment: Patient appears in no apparent distress at this time. No changes from sv previously documented assessment. Patient and/or family updated on plan of care and expected duration. Pain level reassessed. Patient is alert, oriented x 3, equal unlabored respirations, skin warm/dry/pink. 13:20 Reassessment: Patient appears in no apparent distress at this time. No changes from sv previously documented assessment. Patient and/or family updated on plan of care and expected duration. Pain level reassessed. Patient is alert, oriented x 3, equal unlabored respirations, skin warm/dry/pink. Vital Signs: 10:50 BP 145 / 79; Pulse 103; Resp 20; Temp 97.5; Pulse Ox 98% on R/A; Height 5 ft. 11 in. aj1 (180.34 cm) (R); Pain 0/10; ED Course: 10:20 Patient arrived in ED. as 10:45 Triage completed. aj1 10:50 Arm band placed on Patient placed in waiting room, Patient notified of wait time. aj1 11:22 Chest Pa And Lat (2 Views) XRAY In Process Unspecified. EDMS 11:42 Demetrio Bonds MD is Attending Physician. rn 11:44 Deana Fontaine, AKOSUA is Primary Nurse. sv 11:44 Patient has correct armband on for positive identification. Bed in low position. Call sv light in reach. Door closed. Head of bed elevated. 12:59 EKG done, by commercial hvac service technician. reviewed by Demetrio Bonds MD. tc 13:23 No provider procedures requiring assistance completed. Patient did not have IV access sv during this emergency room visit. Administered Medications: 12:11 Drug: SOLU-Medrol 125 mg Route: IM; Site: right gluteus; sv 12:46 Follow up: Response: No adverse reaction sv 12:11 Drug: Xopenex (3) 1.25 mg Route: Inhalation; sv Outcome: 13:01 Discharge ordered by . rn 13:24 Discharged to home ambulatory, with friend. sv 13:24 Condition: stable 13:24 Discharge instructions given to patient, Instructed on discharge instructions, follow up and referral plans. medication usage, Demonstrated understanding of instructions, follow-up care, medications, Prescriptions given X 2. 13:24 Patient left the ED. sv Signatures: Dispatcher [employer] EDMS Lizett Magaña RN RN aj1 Deana Fontaine RN RN sv Martinez, Amelia as Nieto, Roman, MD MD rn Callis, Tiffany, director of quality control EKG Ttc
--- NOTE | 2019-04-13 13:03 | EDPHYS ---
Physician Documentation [facility] Name: Eddie Isaacs Age: 53 yrs Sex: Male : 1965 Arrival Date: 04/13/2019 Time: 10:20 Bed 18 Private MD: ED Physician Demetrio Bonds HPI: 04/13 12:33 This 53 yrs old Male presents to ER via Ambulatory with complaints of Cold rn Symptoms. 12:33 The patient has shortness of breath at rest, with light activity. Onset: The rn symptoms/episode began/occurred 1 week(s) ago. Duration: The symptoms are intermittent. The patient's shortness of breath is aggravated by exertion, light activity. Severity of symptoms: At their worst the symptoms were moderate in the emergency department the symptoms are unchanged. The patient has experienced similar episodes in the past. The patient has not recently seen a physician. Reports smoker, + worsening sob over last week, + subjective fever, reports exposed to someone with pneumonia recently. No hemoptysis. . Historical: - Allergies: 10:50 No Known Allergies; aj1 - Home Meds: 10:50 Plavix Oral [Active]; Simvastatin Oral [Active]; aj1 - PMHx: 10:50 Myocardial infarction; Hyperlipidemia; Hypertension; aj1 - PSHx: 10:50 Knee surgery; sinus surgery; aj1 - Immunization history:: Flu vaccine is not up to date. - Social history:: Smoking status: Patient uses tobacco products, smokes one pack cigarettes per day. - Ebola Screening: : Patient denies travel to an Ebola-affected area in the 21 days before illness onset. - Family history:: not pertinent. - Hospitalizations: : No recent hospitalization is reported. ROS: 12:33 Constitutional: + fever Eyes: Negative for injury, pain, redness, and discharge, Neck: rn Negative for injury, pain, and swelling, Cardiovascular: Negative for chest pain, palpitations, and edema, Respiratory: + cough and mild sob Abdomen/GI: Negative for abdominal pain, nausea, vomiting, diarrhea, and constipation, MS/Extremity: Negative for injury and deformity, Skin: Negative for injury, rash, and discoloration, Neuro: Negative for headache, numbness, tingling, and seizure. Exam: 12:33 Constitutional: Thin male, smells of smoke, no acute distress, resting and no acute rn distress Head/Face: Normocephalic, atraumatic. ENT: No stridor, no swelling Cardiovascular: Tachycardic, regular. No pulse deficits. Respiratory: + diminished bilateral bases with diffuse wheezing, mild tachypnea, no retractions, speaking full sentences. Abdomen/GI: soft, non-tender MS/ Extremity: Pulses equal, no cyanosis. Neurovascular intact. Full, normal range of motion. Equal circumference. Neuro: Awake and alert, GCS 15, oriented to person, place, time, and situation. Cranial nerves II-XII grossly intact. Motor strength 5/5 in all extremities. Sensory grossly intact. 13:00 ECG was reviewed by the Attending Physician. rn Vital Signs: 10:50 BP 145 / 79; Pulse 103; Resp 20; Temp 97.5; Pulse Ox 98% on R/A; Height 5 ft. 11 in. aj1 (180.34 cm) (R); Pain 0/10; MDM: 11:42 Patient medically screened. rn 12:39 Differential diagnosis: Chronic Obstructive Pulmonary Disease Myocardial Infarction rn pneumonia, Pneumothorax. Data reviewed: vital signs, nurses notes, lab test result(s), radiologic studies, plain films, and as a result, I will discharge patient. 13:00 Counseling: I had a detailed discussion with the patient and/or guardian regarding: the rn historical points, exam findings, and any diagnostic results supporting the discharge/admit diagnosis, lab results, radiology results, the need for outpatient follow up, to return to the emergency department if symptoms worsen or persist or if there are any questions or concerns that arise at home, smoking cessation. Special discussion: I discussed with the patient/guardian in detail that at this point there is no indication for admission to the hospital. It is understood, however, that if the symptoms persist or worsen the patient needs to return immediately for re-evaluation. 04/13 10:51 Order name: Flu; Complete Time: 12:30 aj1 04/13 10:51 Order name: Chest Pa And Lat (2 Views) XRAY; Complete Time: 11:41 aj1 04/13 12:40 Order name: EKG; Complete Time: 12:41 rn 04/13 12:40 Order name: EKG - Nurse/Tech; Complete Time: 13:21 rn EC:00 Rate is 95 beats/min. Rhythm is regular. QRS [place] is Normal. RI interval is normal. QRS rn interval is normal. QT interval is normal. No Q waves. T waves are Inverted in leads V2, V3, V4. No ST changes noted. Clinical impression: NSR w/ Non-specific ST/T Changes. Interpreted by me. Reviewed by me. Administered Medications: 12:11 Drug: SOLU-Medrol 125 mg Route: IM; Site: right gluteus; sv 12:46 Follow up: Response: No adverse reaction sv 12:11 Drug: Xopenex (3) 1.25 mg Route: Inhalation; sv Disposition: 04/13/19 13:01 Discharged to Home. Impression: Chronic obstructive pulmonary disease with (acute) exacerbation. - Condition is Stable. - Discharge Instructions: How to Use an Inhaler, Chronic Obstructive Pulmonary Disease Exacerbation. - Prescriptions for Prednisone 20 mg Oral Tablet - take 3 tablet by ORAL route once daily for 5 days; 15 tablet. Albuterol Sulfate 90 mcg/actuation - inhale 1-2 puff by INHALATION route every 4-6 hours; 1 Inhaler. - Medication Reconciliation Form, Thank You Letter, Antibiotic Education, Prescription Opioid Use form. - Follow up: Private Physician; When: As needed; Reason: Recheck today's complaints, Re-evaluation by your physician. - Problem is new. - Symptoms have improved. Signatures: Dispatcher [employer] EDLizett Ochoa RN RN aj1 Deana Fontaine RN RN sv Demetrio Bonds MD MD commander internal affairs: (The following items were deleted from the chart) 13:24 13:01 04/13/2019 13:01 Discharged to Home. Impression: Chronic obstructive pulmonary sv disease with (acute) exacerbation. Condition is Stable. Forms are Medication Reconciliation Form, Thank You Letter, Antibiotic Education, Prescription Opioid Use. Follow up: Private Physician; When: As needed; Reason: Recheck today's complaints, Re-evaluation by your physician. Problem is new. Symptoms have improved. rn
[2019-04-13 13:30] VITALS: BP 145/79; TEMP 97.5; O2SAT 98
== END 2019-04-13 13:24 | disposition home or self-care (01) ==
LOC: ER 10:19
DX: J44.1 Chronic obstructive pulmonary disease with (acute) exacerbation (principal); I10 Essential (primary) hypertension; E78.5 Hyperlipidemia, unspecified; I25.2 Old myocardial infarction; F17.210 Nicotine dependence, cigarettes, uncomplicated
CPT/HCPCS: 71046; 87804; 93005; 96372; 99284; J2930

== ENCOUNTER 2019-05-06 09:21 | Observation (INO) | payer SELFPAY ==
--- OUTSIDE RECORDS SUMMARY | 2019-05-06 09:24 | XMS REPORT ---
:1965 [facility] Address [address] [place] [address] Care Team Providers Name Role Phone CHRISSY LAZCANO Unavailable Unavailable RIGOBERTO DIXON Unavailable Unavailable Payers Payer Name Policy Type [...] NORMAL <50 MG 1 NORMAL code=LIPINDEX) Index/DL [id number] 08:21:00 Test Item Value Reference Range Comments [...] of temporal changes in troponin levelscharacteristic of OR. COMPREHENSIVE METABOLIC [id number] 07:28:00 Test Item Value Reference Range Comments [...] NORMAL <50 MG 1 NORMAL code=LIPINDEX) Index/DL [id number] 07:28:00 Test Item Value Reference Range Comments TROPONIN-I (test code=TROPI) NG/ML 0.000-0.045 COMPREHENSIVE METABOLIC [id number] 07:26:00 Test Item Value Reference Range Comments [...] NORMAL <50 MG 1 NORMAL code=LIPINDEX) Index/DL [id number] 07:26:00 Test Item Value Reference Range Comments TROPONIN-I (test code=TROPI) NG/ML 0.000-0.045 CBC W/AUTO [id number] 07:06:00 Test Item Value Reference Range Comments [...] RBC # (test code=NRBC#) 0.00 K/mm3 0.00-0.05 [id number] 00:55:00 Test Item Value Reference Range Comments [...] of temporal changes in troponin levelscharacteristic of OR. [id number] 21:24:00 Test Item Value Reference Range Comments [...] of temporal changes in troponin levelscharacteristic of OR. COMPREHENSIVE METABOLIC [id number] 18:32:00 Test Item Value Reference Range Comments [...] MG 1 NORMAL code=LIPINDEX) Index/DL COMPREHENSIVE METABOLIC [id number] 18:29:00 Test Item Value Reference Range Comments [...] <50 MG Index/DL 1 NORMAL PT AND [id number] 18:14:00 Test Item Value Reference Range Comments [...] TO POSSIBLE HEPARINCONTAMINATION - CT HEAD/BRAIN W/O [id number] 18:12:00 Patient Name: ANAHY PONCE Unit No: [id number] EXAMS: CPT CODE: [id number] CT HEAD/BRAIN W/O CONT [id number] Location: T18 CT head, 02/18/19 COMPARISON EXAMS:Noneof the brain TECHNIQUE: CT examination of the brain was performed without contrast on a helical scanner. Scanning conducted from skull base to vertex in the axial plane acquiring contiguous 5mm slice thickness . The examination was performed on a [facility] helical CT scanner utilizing low-dose radiation technique. [...] (1811) [email or web address] ELPIDIO Dorado NAME: ANAHY PONCE [address] [place] [address] PHYS: YI Wiseman FacundoDevin [place], [place] [address] : 1965 AGE: 53 SEX: M LOC: B.[employer] PHONE # : [phone] EXAM DATE: 02/18/2019 STATUS: PRE ER FAX #: [phone] RAD #: D/C DT PAGE 1 Signed Report Patient Name: ANAHY PONCE Unit No: [id number] EXAMS: CPT CODE: [id number] CT HEAD/BRAIN W/O CONT [id number] <Continued& gt; Orig Print D/T: S: 02/18/2019 (1814) ELPIDIO Dorado NAME: ANAHY PONCE [address] [place] [address] PHYS: YI Wiseman FacundoDevin Megan [place], [place] [address] : 1965 AGE: 53 SEX: M LOC: B.ERS PHONE #: [phone] EXAM DATE: 02/18/2019 STATUS: PRE ER FAX #: [phone] RAD # : D/C DT PAGE 2 Signed ReportTROPONIN I [id number] 18:08:00 Test Item Value Reference Range Comments [...] of temporal changes in troponin levelscharacteristic of OR. CHEMISTRY 7 [id number] 18:03:00 Test Item Value Reference Range Comments [...] POC (test code=GFRBED) 70 56-130 CHEMISTRY 7 [id number] 18:03:00 Test Item Value Reference Range Comments [...] POC 70 56-130 (test code=GFRBED) CBC W/AUTO [id number] 18:03:00 Test Item Value Reference Range Comments [...] NATRIURETIC PEPTIDE (BEAKER) (test 497 pg/mL 0-100 blhy=377) [id number] 15:20:00 Test Item Value Reference Range Comments MAGNESIUM (BEAKER) (test alrz=394) 1.8 mg/dL 1.6-2.6 BASIC METABOLIC [id number] 15:20:00 Test Item Value Reference Range Comments SODIUM (BEAKER) (test 137 meq/L 136-145 ypcl=499) POTASSIUM (BEAKER) (test 4.0 meq/L 3.5-5.1 nxas=027) CHLORIDE (BEAKER) (test 101 meq/L 98-107 pxcp=896) CO2 (BEAKER) (test 28 meq/L 22-29 wqec=736) BLOOD UREA NITROGEN 15 mg/dL 7-21 (BEAKER) (test ndat=770) CREATININE (BEAKER) (test 1.08 mg/dL 0.57-1.25 shud=070) GLUCOSE RANDOM (BEAKER) 81 mg/dL 70-105 (test fgyp=964) CALCIUM (BEAKER) (test 9.7 mg/dL 8.4-10.2 gyca=953) EGFR (BEAKER) (test 72 mL/min/1.73 sq m ESTIMATED GFR IS NOT hwon=7306) ACCURATE CREATININE CLEARANCE IN PREDICTING GLOMERULAR FILTRATION RATE. ESTIMATED GFR IS NOT APPLICABLE FOR DIALYSIS PATIENTS. TROPONIN [id number] 04:40:00 Test Item Value Reference Range Comments TROPONIN I (BEAKER) (test fvte=774) 3.39 ng/mL 0.00-0.03 Troponin I (TnI) levels [...] failure, acidosis, acute neurological disease, and persistent tachyarrhythmia.[id number] 04:23:00 Test Item Value Reference Range Comments MAGNESIUM (BEAKER) (test enzk=210) 2.2 mg/dL 1.6-2.6 BASIC METABOLIC [id number] 04:23:00 Test Item Value Reference Range Comments SODIUM (BEAKER) (test 138 meq/L 136-145 jmhm=293) POTASSIUM (BEAKER) (test 3.7 meq/L 3.5-5.1 lfvu=779) CHLORIDE (BEAKER) (test 105 meq/L 98-107 swmh=964) CO2 (BEAKER) (test 21 meq/L 22-29 okcj=035) BLOOD UREA NITROGEN 35 mg/dL 7-21 (BEAKER) (test npiq=973) CREATININE (BEAKER) (test 1.11 mg/dL 0.57-1.25 kztf=075) GLUCOSE RANDOM (BEAKER) 86 mg/dL 70-105 (test iqep=306) CALCIUM (BEAKER) (test 9.3 mg/dL 8.4-10.2 teub=581) EGFR (BEAKER) (test 70 mL/min/1.73 sq m ESTIMATED GFR IS NOT jnow=6906) ACCURATE CREATININE CLEARANCE IN PREDICTING GLOMERULAR FILTRATION RATE. ESTIMATED GFR IS NOT APPLICABLE FOR DIALYSIS PATIENTS. CBC (HEMOGRAM ONLY)2017-04-07 04:00:00 Test Item Value Reference Range Comments WHITE BLOOD CELL COUNT (BEAKER) (test vhph=312) 12.6 K/ L 3.5-10.5 RED BLOOD CELL COUNT (BEAKER) (test ycpv=937) 3.85 M/ L 4.63-6.08 HEMOGLOBIN (BEAKER) (test dypc=413) 10.9 GM/DL 13.7-17.5 HEMATOCRIT (BEAKER) (test zoni=861) 34.2 % 40.1-51.0 MEAN CORPUSCULAR VOLUME (BEAKER) (test jmmd=831) 88.8 fL 79.0-92.2 MEAN CORPUSCULAR HEMOGLOBIN (BEAKER) (test 28.3 pg 25.7-32.2 ggsb=489) MEAN CORPUSCULAR HEMOGLOBIN CONC (BEAKER) (test 31.9 GM/DL 32.3-36.5 clqh=005) RED CELL DISTRIBUTION WIDTH (BEAKER) (test 15.5 % 11.6-14.4 emmz=400) PLATELET COUNT (BEAKER) (test kjtv=161) 276 K/CU MM 150-450 MEAN PLATELET VOLUME (BEAKER) (test tgii=039) 10.9 fL 9.4-12.4 NUCLEATED RED BLOOD CELLS (BEAKER) (test 0 /100 WBC 0-0 pgic=826) TROPONIN [id number] 11:34:00 Test Item Value Reference Range Comments TROPONIN I (BEAKER) (test ikdn=846) 4.01 ng/mL 0.00-0.03 Troponin I (TnI) levels [...] failure, acidosis, acute neurological disease, and persistent tachyarrhythmia.[id number] 06:25:00 Test Item Value Reference Range Comments MAGNESIUM (BEAKER) (test rkrv=849) 2.0 mg/dL 1.6-2.6 BASIC METABOLIC [id number] 06:25:00 Test Item Value Reference Range Comments SODIUM (BEAKER) (test 139 meq/L 136-145 uihb=028) POTASSIUM (BEAKER) (test 3.7 meq/L 3.5-5.1 pxhy=855) CHLORIDE (BEAKER) (test 106 meq/L 98-107 zsap=122) CO2 (BEAKER) (test 21 meq/L 22-29 pkey=531) BLOOD UREA NITROGEN 22 mg/dL 7-21 (BEAKER) (test bavd=541) CREATININE (BEAKER) (test 0.91 mg/dL 0.57-1.25 bern=662) GLUCOSE RANDOM (BEAKER) 81 mg/dL 70-105 (test peqf=573) CALCIUM (BEAKER) (test 9.5 mg/dL 8.4-10.2 moyt=947) EGFR (BEAKER) (test 88 mL/min/1.73 sq m ESTIMATED GFR IS NOT hrug=9124) ACCURATE CREATININE CLEARANCE IN PREDICTING GLOMERULAR FILTRATION RATE. ESTIMATED GFR IS NOT APPLICABLE FOR DIALYSIS PATIENTS. CBC (HEMOGRAM ONLY)2017-04-06 05:46:00 Test Item Value Reference Range Comments WHITE BLOOD CELL COUNT (BEAKER) (test hybm=597) 15.7 K/ L 3.5-10.5 RED BLOOD CELL COUNT (BEAKER) (test unoz=408) 4.09 M/ L 4.63-6.08 HEMOGLOBIN (BEAKER) (test tpaa=708) 11.6 GM/DL 13.7-17.5 HEMATOCRIT (BEAKER) (test jeel=385) 37.0 % 40.1-51.0 MEAN CORPUSCULAR VOLUME (BEAKER) (test gmsj=252) 90.5 fL 79.0-92.2 MEAN CORPUSCULAR HEMOGLOBIN (BEAKER) (test 28.4 pg 25.7-32.2 iwpn=776) MEAN CORPUSCULAR HEMOGLOBIN CONC (BEAKER) (test 31.4 GM/DL 32.3-36.5 syou=438) RED CELL DISTRIBUTION WIDTH (BEAKER) (test 15.7 % 11.6-14.4 surb=473) PLATELET COUNT (BEAKER) (test xsgx=329) 290 K/CU MM 150-450 MEAN PLATELET VOLUME (BEAKER) (test vrrv=278) 11.2 fL 9.4-12.4 NUCLEATED RED BLOOD CELLS (BEAKER) (test 0 /100 WBC 0-0 alqz=514) [id number] 07:49:00 Test Item Value Reference Range Comments MAGNESIUM (BEAKER) (test oapb=940) 2.0 mg/dL 1.6-2.6 TROPONIN [id number] 05:48:00 Test Item Value Reference Range Comments TROPONIN I (BEAKER) (test lhwu=146) 8.11 ng/mL 0.00-0.03 Troponin I (TnI) levels [...] acute neurological disease, and persistent tachyarrhythmia.COMPREHENSIVE METABOLIC [id number] 05:42:00 Test Item Value Reference Range Comments TOTAL PROTEIN (BEAKER) 6.9 gm/dL 6.0-8.3 (test wiwy=385) ALBUMIN (BEAKER) (test 3.5 g/dL 3.5-5.0 bqac=2877) ALKALINE PHOSPHATASE 118 U/L 40-150 (BEAKER) (test bpri=713) BILIRUBIN TOTAL (BEAKER) 0.8 mg/dL 0.2-1.2 (test dqvf=522) SODIUM (BEAKER) (test 138 meq/L 136-145 imuv=754) POTASSIUM (BEAKER) (test 3.9 meq/L 3.5-5.1 jueb=206) CHLORIDE (BEAKER) (test 107 meq/L 98-107 qppk=579) CO2 (BEAKER) (test 23 meq/L 22-29 wgql=819) BLOOD UREA NITROGEN 17 mg/dL 7-21 (BEAKER) (test xmyp=902) CREATININE (BEAKER) (test 0.80 mg/dL 0.57-1.25 pcxt=039) GLUCOSE RANDOM (BEAKER) 108 mg/dL 70-105 (test tvve=309) CALCIUM (BEAKER) (test 8.8 mg/dL 8.4-10.2 vlng=269) AST (SGOT) (BEAKER) (test 45 U/L 5-34 hbjc=488) ALT (SGPT) (BEAKER) (test 17 U/L 6-55 tabw=328) EGFR (BEAKER) (test 102 mL/min/1.73 sq ESTIMATED GFR IS NOT smwz=6178) m ACCURATE CREATININE CLEARANCE IN PREDICTING GLOMERULAR FILTRATION RATE. ESTIMATED GFR IS NOT APPLICABLE FOR DIALYSIS PATIENTS. RAD, CHEST, 1 VIEW, NON [id number] 05:07:00Reason for exam:->IABPFINAL REPORT RAD, CHEST, 1 [...] Avila Verified Date/Time: 04/05/2017 05:07:01 Reading Location: [facility] C013Y CT Body Reading Room [id number] 04:15:00 Test Item Value Reference Range Comments FERRITIN (BEAKER) (test vxkj=517) 141 ng/mL 5-275 CREATINE KINASE (CK), TOTAL AND [id number] 04:04:00 Test Item Value Reference Range Comments CREATINE KINASE TOTAL (BEAKER) (test znas=738) 228 U/L 29-200 CREATINE KINASE-MB (BEAKER) (test kdny=013) 18.7 ng/mL 0.0-6.6 CREATINE KINASE-MB INDEX (BEAKER) (test vukl=663) 8.2 % CK-MB Reference Range:<6.7 Normal6.7-10.0 Borderline>10.0 AbnormalIRON, TIBC, % SAT. (WITHOUT FERRITIN)2017-04-05 04:01:00 Test Item Value Reference Range Comments IRON (BEAKER) (test cfth=404) 16 ug/dL 40-160 TOTAL IRON BINDING CAPACITY (BEAKER) (test 223 ug/dL 250-450 ayjx=071) IRON % SATURATION (2) (BEAKER) (test perx=4548) 7 % 20-55 [id number] 03:56:00 Test Item Value Reference Range Comments MAGNESIUM (BEAKER) (test ofeb=686) 1.6 mg/dL 1.6-2.6 CBC W/PLT COUNT & AUTO [id number] 03:38:00 Test Item Value Reference Range Comments WHITE BLOOD CELL COUNT (BEAKER) (test mvjh=105) 13.4 K/ L 3.5-10.5 RED BLOOD CELL COUNT (BEAKER) (test cmdf=630) 3.33 M/ L 4.63-6.08 HEMOGLOBIN (BEAKER) (test utbn=787) 9.5 GM/DL 13.7-17.5 HEMATOCRIT (BEAKER) (test fpza=609) 30.1 % 40.1-51.0 MEAN CORPUSCULAR VOLUME (BEAKER) (test ytos=045) 90.4 fL 79.0-92.2 MEAN CORPUSCULAR HEMOGLOBIN (BEAKER) (test 28.5 pg 25.7-32.2 lfkk=750) MEAN CORPUSCULAR HEMOGLOBIN CONC (BEAKER) (test 31.6 GM/DL 32.3-36.5 ltdr=189) RED CELL DISTRIBUTION WIDTH (BEAKER) (test 15.7 % 11.6-14.4 cndr=892) PLATELET COUNT (BEAKER) (test bwcu=257) 252 K/CU MM 150-450 MEAN PLATELET VOLUME (BEAKER) (test fulj=936) 11.3 fL 9.4-12.4 NUCLEATED RED BLOOD CELLS (BEAKER) (test 0 /100 WBC 0-0 ykqz=012) NEUTROPHILS RELATIVE PERCENT (BEAKER) (test 86 % uhxo=175) LYMPHOCYTES RELATIVE PERCENT (BEAKER) (test 8 % lwaj=627) MONOCYTES RELATIVE PERCENT (BEAKER) (test 5 % haqd=108) EOSINOPHILS RELATIVE PERCENT (BEAKER) (test 0 % pzff=158) BASOPHILS RELATIVE PERCENT (BEAKER) (test 0 % gvdy=519) NEUTROPHILS ABSOLUTE COUNT (BEAKER) (test 11.52 K/ L 1.78-5.38 hyll=446) LYMPHOCYTES ABSOLUTE COUNT (BEAKER) (test 1.07 K/ L 1.32-3.57 rtdw=779) MONOCYTES ABSOLUTE COUNT (BEAKER) (test 0.63 K/ L 0.30-0.82 ybth=472) EOSINOPHILS ABSOLUTE COUNT (BEAKER) (test 0.06 K/ L 0.04-0.54 eccg=725) BASOPHILS ABSOLUTE COUNT (BEAKER) (test 0.06 K/ L 0.01-0.08 puek=592) IMMATURE GRANULOCYTES-RELATIVE PERCENT (BEAKER) 0 % 0-1 (test uxgo=2215) TROPONIN [id number] 19:07:00 Test Item Value Reference Range Comments TROPONIN I (BEAKER) (test wmlh=402) 11.89 ng/mL 0.00-0.03 Troponin I (TnI) levels [...] and persistent tachyarrhythmia.CREATINE KINASE (CK), TOTAL AND [id number] 19:06:00 Test Item Value Reference Range Comments CREATINE KINASE TOTAL (BEAKER) (test diqd=487) 485 U/L 29-200 CREATINE KINASE-MB (BEAKER) (test ujcm=092) 59.5 ng/mL 0.0-6.6 CREATINE KINASE-MB INDEX (BEAKER) (test gzyp=834) 12.3 % CK-MB Reference Range:<6.7 Normal6.7-10.0 Borderline>10.0 AbnormalHEMOGLOBIN [id number] 17:50:00 Test Item Value Reference Range Comments HEMOGLOBIN A1C (BEAKER) (test ofij=889) 5.3 % 4.3-6.1 RAD, CHEST, 1 VIEW, NON [id number] 17:49:00Reason for exam:->eval for PVCShould this be [...] Jimenez MDReportVerified Date/Time: 04/04/2017 17:49:35 Reading Location: [facility] Radiology Reading Room TROPONIN [id number] 11:58:00 Test Item Value Reference Range Comments TROPONIN I (BEAKER) (test nray=750) 4.95 ng/mL 0.00-0.03 Troponin I (TnI) levels [...] and persistent tachyarrhythmia.CREATINE KINASE (CK), TOTAL AND [id number] 11:49:00 Test Item Value Reference Range Comments CREATINE KINASE TOTAL (BEAKER) (test qkhm=468) 332 U/L 29-200 CREATINE KINASE-MB (BEAKER) (test dyci=332) 40.7 ng/mL 0.0-6.6 CREATINE KINASE-MB INDEX (BEAKER) (test pwux=551) 12.3 % CK-MB Reference Range:<6.7 Normal6.7-10.0 Borderline>10.0 AbnormalCBC W/PLT COUNT & AUTO [id number] 11:49:00 Test Item Value Reference Range Comments WHITE BLOOD CELL COUNT (BEAKER) (test yvjd=700) 12.1 K/ L 3.5-10.5 RED BLOOD CELL COUNT (BEAKER) (test cndy=979) 3.67 M/ L 4.63-6.08 HEMOGLOBIN (BEAKER) (test vyxb=316) 10.5 GM/DL 13.7-17.5 HEMATOCRIT (BEAKER) (test dgzq=271) 33.8 % 40.1-51.0 MEAN CORPUSCULAR VOLUME (BEAKER) (test mdoq=901) 92.1 fL 79.0-92.2 MEAN CORPUSCULAR HEMOGLOBIN (BEAKER) (test 28.6 pg 25.7-32.2 qjkm=325) MEAN CORPUSCULAR HEMOGLOBIN CONC (BEAKER) (test 31.1 GM/DL 32.3-36.5 ibwg=209) RED CELL DISTRIBUTION WIDTH (BEAKER) (test 15.7 % 11.6-14.4 zpoa=350) PLATELET COUNT (BEAKER) (test ocjm=643) 274 K/CU MM 150-450 MEAN PLATELET VOLUME (BEAKER) (test waxa=106) 11.3 fL 9.4-12.4 NUCLEATED RED BLOOD CELLS (BEAKER) (test 0 /100 WBC 0-0 ktkf=278) NEUTROPHILS RELATIVE PERCENT (BEAKER) (test 89 % nmtt=357) LYMPHOCYTES RELATIVE PERCENT (BEAKER) (test 8 % epwd=315) MONOCYTES RELATIVE PERCENT (BEAKER) (test 2 % qxmx=330) EOSINOPHILS RELATIVE PERCENT (BEAKER) (test 0 % uels=634) BASOPHILS RELATIVE PERCENT (BEAKER) (test 0 % lrza=585) NEUTROPHILS ABSOLUTE COUNT (BEAKER) (test 10.81 K/ L 1.78-5.38 rasg=526) LYMPHOCYTES ABSOLUTE COUNT (BEAKER) (test 0.92 K/ L 1.32-3.57 sfua=164) MONOCYTES ABSOLUTE COUNT (BEAKER) (test 0.24 K/ L 0.30-0.82 wuny=331) EOSINOPHILS ABSOLUTE COUNT (BEAKER) (test 0.02 K/ L 0.04-0.54 hdyt=514) BASOPHILS ABSOLUTE COUNT (BEAKER) (test 0.04 K/ L 0.01-0.08 wxfj=317) IMMATURE GRANULOCYTES-RELATIVE PERCENT (BEAKER) 1 % 0-1 (test azqv=7968) B-TYPE NATRIURETIC FACTOR (BNP)2017-04-04 11:48:00 Test Item Value Reference Range Comments B-TYPE NATRIURETIC PEPTIDE (BEAKER) (test 741 pg/mL 0-100 jgqb=456) [id number] 11:42:00 Test Item Value Reference Range Comments PHOSPHORUS (BEAKER) (test agrw=374) 2.2 mg/dL 2.3-4.7 [id number] 11:42:00 Test Item Value Reference Range Comments MAGNESIUM (BEAKER) (test asch=861) 2.1 mg/dL 1.6-2.6 COMPREHENSIVE METABOLIC [id number] 11:42:00 Test Item Value Reference Range Comments TOTAL PROTEIN (BEAKER) 7.4 gm/dL 6.0-8.3 (test ndkl=839) ALBUMIN (BEAKER) (test 3.7 g/dL 3.5-5.0 umqz=6605) ALKALINE PHOSPHATASE 120 U/L 40-150 (BEAKER) (test jagy=471) BILIRUBIN TOTAL (BEAKER) 0.4 mg/dL 0.2-1.2 (test rnsh=873) SODIUM (BEAKER) (test 137 meq/L 136-145 svnw=192) POTASSIUM (BEAKER) (test 4.7 meq/L 3.5-5.1 tepz=346) CHLORIDE (BEAKER) (test 108 meq/L 98-107 afxn=651) CO2 (BEAKER) (test 22 meq/L 22-29 kyck=271) BLOOD UREA NITROGEN 17 mg/dL 7-21 (BEAKER) (test vdmg=838) CREATININE (BEAKER) (test 0.99 mg/dL 0.57-1.25 ubmk=254) GLUCOSE RANDOM (BEAKER) 121 mg/dL 70-105 (test psfs=503) CALCIUM (BEAKER) (test 9.1 mg/dL 8.4-10.2 hpdj=151) AST (SGOT) (BEAKER) (test 35 U/L 5-34 jghl=506) ALT (SGPT) (BEAKER) (test 14 U/L 6-55 orqd=507) EGFR (BEAKER) (test 80 mL/min/1.73 sq m ESTIMATED GFR IS NOT mgrr=0636) ACCURATE CREATININE CLEARANCE IN PREDICTING GLOMERULAR FILTRATION RATE. ESTIMATED GFR IS NOT APPLICABLE FOR DIALYSIS PATIENTS. LIPID [id number] 11:42:00 Test Item Value Reference Range Comments TRIGLYCERIDES (BEAKER) (test mcfn=417) 59 mg/dL CHOLESTEROL (BEAKER) (test iuxl=879) 215 mg/dL HDL CHOLESTEROL (BEAKER) (test egkr=430) 30 mg/dL LDL CHOLESTEROL CALCULATED (BEAKER) (test 173 mg/dL bznt=772) Triglyceride Reference Range: Low Risk <150 Borderline 150- 199 High Risk 200-499 Very High Risk >=500Cholesterol Reference Range: Low Risk <200 Borderline 200-239 High Risk > 240HDL Cholesterol Reference Range: Low Risk >=60 High Risk <40LDL Cholesterol Reference Range: Optimal <100 Near Optimal 100-129 Borderline 130-159 High 160-189 Very High >=[id number] 11:31:00 Test Item Value Reference Range Comments PARTIAL THROMBOPLASTIN TIME (BEAKER) (test 165.8 seconds 22.5-36.0 xzah=922) PROTHROMBIN TIME/[id number] 11:25:00 Test Item Value Reference Range Comments PROTIME (BEAKER) (test anbe=236) 16.0 seconds 11.7-14.7 INR (BEAKER) (test gkwh=935) 1.3 <=5.9 RECOMMENDED COUMADIN/WARFARIN INR THERAPY RANGESSTANDARD DOSE: 2.0 - 3.0 Includes: PROPHYLAXIS forvenous thrombosis, systemic embolization; TREATMENT for venous thrombosis and/or pulmonary embolus.HIGH RISK: Target INR is 2.5-3.5 for patients with mechanical heart valves.[id number] 10:07:00 Test Item Value Reference Range Comments ACTIVATED CLOTTING TIME 197 sec TESTED AT [place] [address] [email or web address] [email or web address]) (test gasq=895) [place] [address] [id number] 10:07:00 Test Item Value Reference Range Comments ACTIVATED CLOTTING TIME 202 sec TESTED AT [facility] [address] [employer] (test dnfi=861) [place] [address]
[2019-05-06 09:57] LABS: Absolute Lymphocytes (CBC) 1.2 K/uL (0.7-4.9); Basophils % 1.3 % (0-1.3); Lymphocytes % 13.8 % (15.3-44.8); MPV 9.2 fL (7.6-11.3); RBC Red Blood Cell Count 4.37 M/uL (4.33-5.43)
[2019-05-06 09:58] LABS: Protime INR 1.11
[2019-05-06] MEDS ORDERED: ASPIRIN 81 MG CHEWABLE TABLET ONE (10:11)
[2019-05-06 10:14] LABS: ALT/SGPT 21 U/L (12-78); AST/SGOT 14 U/L (15-37); Albumin 3.4 g/dL (3.4-5.0); Alkaline Phosphatase 129 U/L (45-117); BUN Blood Urea Nitrogen 10 mg/dL (7-18); Bicarbonate 26 mmol/L (21-32); Bilirubin Direct 0.1 mg/dL (0-0.2); Bilirubin Total 0.4 mg/dL (0.2-1.0); Glucose Level 88 mg/dL (74-106); Magnesium 2.3 mg/dL (1.8-2.4); NT PRO-BNP 4292 pg/mL (<125); Protein, Total 8.1 g/dL (6.4-8.2); Sodium Level 141 mmol/L (136-145); Troponin (Emerg Dept Use Only) < 0.02 ng/mL (0.0-0.045)
--- NOTE | 2019-05-06 10:47 | ER ---
Nurse's Notes [facility] Name: Eddie Isaacs Age: 54 yrs Sex: Male : 1965 Arrival Date: 05/06/2019 Time: 09:23 Bed 18 Private MD: Diagnosis: Other chest pain Presentation: 05/06 09:44 Presenting complaint: Patient states: hasn't slept in 8 days, hx of COPD, has trouble iw breathing for 8 days, had chest pain yesterday but none today. Transition of care: patient was not received from another setting of care. Onset of symptoms was May 06, 2019. Risk Assessment: Do you want to hurt yourself or someone else? Patient reports no desire to harm self or others. Initial Sepsis Screen: Does the patient meet any 2 criteria? No. Patient's initial sepsis screen is negative. Does the patient have a suspected source of infection? No. Patient's initial sepsis screen is negative. Care prior to arrival: None. 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 - Social history:: Smoking status: Patient uses tobacco products, smokes one-half pack cigarettes per day, Patient/guardian denies using alcohol, street drugs, The patient lives with family. - Ebola Screening: : Patient negative for fever greater than or equal to 101.5 degrees Fahrenheit, and additional compatible Ebola Virus Disease symptoms Patient denies exposure to infectious person Patient denies travel to an Ebola-affected area in the 21 days before illness onset No symptoms or risks identified at this time. - Family history:: not pertinent. Screenin:50 Abuse screen: Denies threats or abuse. Denies injuries from another. Nutritional sg screening: No deficits noted. Tuberculosis screening: No symptoms or risk factors identified. Never had TB. Fall Risk None identified. Assessment: 09:40 General: Appears in no apparent distress. well groomed, well developed, well nourished, sg Behavior is calm, cooperative, appropriate for age. Pain: Complains of pain in chest Quality of pain is described as sharp, stabbing, squeezing. Neuro: Level of Consciousness is awake, alert, obeys commands, Oriented to person, place, time, Certified Orthotist are equal bilaterally Moves all extremities. Speech is normal, Facial symmetry appears normal. Cardiovascular: Capillary refill is brisk in bilateral fingers Patient's skin is warm and dry. Chest pain is described as mild, quality is sharp, squeezing, stabbing, is located in anterior chest wall is aggravated by activity. Respiratory: Reports shortness of breath on exertion Airway is patent Respiratory effort is even, labored, Respiratory pattern is regular, symmetrical, Breath sounds are clear. GI: Abdomen is round non-distended. : No signs and/or symptoms were reported regarding the genitourinary system. EENT: No signs and/or symptoms were reported regarding the EENT system. Derm: Skin is pink, warm \T\ dry. Musculoskeletal: Circulation, motion, and sensation intact. Range of motion: intact in all extremities. 09:50 Reassessment: xray at bedside at this time. sg 11:04 Reassessment: Patient appears in no apparent distress at this time. pt requesting food, sg awaiting admission orders at this time, pt ambulatory to ER restroom, a urine specimen will be obtained. 15:16 Reassessment: Patient appears in no apparent distress at this time. Patient and/or sg family updated on plan of care and expected duration. Pain level reassessed. Jazmin RN reports to please call back as there has not been a nurse assigned to this patient at this time. pt informed of reason for delay, pt stated understanding, will call back for pt report. 16:00 Pain: Pain began 2-3 days ago. iw Vital Signs: 09:48 BP 164 / 110; Pulse 105; Resp 18 S; Temp 97.8; Pulse Ox 100% on R/A; Weight 68.04 kg; iw Height 5 ft. 11 in. (180.34 cm); Pain 0/10; 10:56 BP 148 / 88; Pulse 88; Resp 18; Pulse Ox 100% on R/A; Pain 0/10; sg 15:56 BP 136 / 82; Pulse 82; Resp 17; Temp 97.8; Pulse Ox 100% on R/A; Pain 0/10; sg 09:48 Body Mass Index 20.92 (68.04 kg, 180.34 cm) ED Course: 09:23 Patient arrived in ED. as 09:36 Amberly Jenkins MD is Attending Physician. ma2 09:37 Carlos Pedraza, RN is Primary Nurse. sg 09:46 Triage completed. iw 09:48 Arm band placed on. iw 09:48 Inserted saline lock: 20 gauge in right antecubital area, using aseptic technique. ms Blood collected. 09:50 Patient has correct armband on for positive identification. Placed in gown. Bed in low sg position. Call light in reach. Side rails up X2. ticket seller on. Pulse ox on. NIBP on. Warm blanket given. Head of bed elevated. 09:50 No provider procedures requiring assistance completed. Patient maintains SpO2 sg saturation greater than 95% on room air. 09:55 XRAY Chest (1 view) In Process Unspecified. EDMS 10:45 Patient admitted, IV remains in place. iw 10:46 Tanner Davis DO is Hospitalizing Provider. ma2 10:55 Admitting physician to see patient. . sg Administered Medications: 10:00 Drug: Aspirin Chewable Tablet 324 mg Route: PO; sg 10:59 Follow up: Response: No adverse reaction sg 13:40 Drug: Nicoderm CQ 21 mg/24 hr 1 patches Route: Transdermal; Site: affected area; sg Outcome: 10:45 Discharge ordered by . ma2 10:46 Decision to Hospitalize by Provider. ma2 16:12 Admitted to Tele accompanied by tech, via wheelchair, with chart. iw 16:12 Condition: good 16:12 Discharge instructions given to patient, Instructed on the need for admit, Demonstrated understanding of instructions. 16:13 Patient left the ED. sg Signatures: Dispatcher [employer] EDMS Carlos Pedraza, RN AKOSUA Nohemi Jasmine Irene, RN RN Randi Hairston ms Amberly Jenkins MD MD [facility]
--- NOTE | 2019-05-06 10:47 | EDPHYS ---
Physician Documentation [facility] Name: Eddie Isaacs Age: 54 yrs Sex: Male : 1965 Arrival Date: 05/06/2019 Time: 09:23 Bed 18 Private MD: ED Physician Amberly Jenkins HPI: 05/06 10:43 This 54 yrs old Male presents to ER via Ambulatory with complaints of Chest ma2 Pain, Breathing Difficulty. 10:43 The patient or guardian reports chest pain that is located primarily in the substernal ma2 area. Onset: gradually, 1 day(s) ago. Associated signs and symptoms: Pertinent negatives: None. dizziness, headache, lightheadedness, shortness of breath, vomiting. The chest pain is described as aching. Modifying factors: the symptoms are aggravated by activity, eating, jumping, walking. Severity of pain: At its worst the pain was very mild in the emergency department the pain has resolved. 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 - Social history:: Smoking status: Patient uses tobacco products, smokes one-half pack cigarettes per day, Patient/guardian denies using alcohol, street drugs, The patient lives with family. - Ebola Screening: : Patient negative for fever greater than or equal to 101.5 degrees Fahrenheit, and additional compatible Ebola Virus Disease symptoms Patient denies exposure to infectious person Patient denies travel to an Ebola-affected area in the 21 days before illness onset No symptoms or risks identified at this time. - Family history:: not pertinent. ROS: 10:43 Constitutional: Negative for fever, chills, and weight loss, Eyes: Negative for injury, ma2 pain, redness, and discharge. 10:43 All other systems are negative. Exam: 10:43 Constitutional: This is a well developed, well nourished patient who is awake, alert, ma2 and in no acute distress. Chest/axilla: Normal chest wall appearance and motion. Nontender with no deformity. No lesions are appreciated. Cardiovascular: Regular rate and rhythm with a normal S1 and S2. No gallops, murmurs, or rubs. Normal PMI, no JVD. No pulse deficits. Respiratory: Lungs have equal breath sounds bilaterally, clear to auscultation and percussion. No rales, rhonchi or wheezes noted. No increased work of breathing, no retractions or nasal flaring. Abdomen/GI: Soft, non-tender, with normal bowel sounds. No distension or tympany. No guarding or rebound. No evidence of tenderness throughout. Vital Signs: 09:48 BP 164 / 110; Pulse 105; Resp 18 S; Temp 97.8; Pulse Ox 100% on R/A; Weight 68.04 kg; iw Height 5 ft. 11 in. (180.34 cm); Pain 0/10; 10:56 BP 148 / 88; Pulse 88; Resp 18; Pulse Ox 100% on R/A; Pain 0/10; sg 15:56 BP 136 / 82; Pulse 82; Resp 17; Temp 97.8; Pulse Ox 100% on R/A; Pain 0/10; sg 09:48 Body Mass Index 20.92 (68.04 kg, 180.34 cm) iw MDM: 09:36 Patient medically screened. ma2 10:43 Differential diagnosis: abnormal EKG, gastritis, gastroesophageal reflux disease ma2 (GERD), pleurisy, pneumonia. HEART Score: History: Moderately Suspicious (1), ECG: Non specific repolarization disturbance / LBTB / PM (1), Troponin: < or = 1 x Normal Limit (0). DILLON Risk Score: 1- Known CAD. Data reviewed: vital signs. Counseling: I had a detailed discussion with the patient and/or guardian regarding: the historical points, exam findings, and any diagnostic results supporting the discharge/admit diagnosis, the presence of at least one elevated blood pressure reading (>120/80) during this emergency department visit, the need for outpatient follow up. 05/06 09:36 Order name: Basic Metabolic Panel; Complete Time: 10:05/06 09:36 Order name: CBC with Diff; Complete Time: 10:26 05/06 09:36 Order name: LFT's; Complete Time: 10:05/06 09:36 Order name: Magnesium; Complete Time: 10:05/06 09:36 Order name: NT PRO-BNP; Complete Time: 10:26 [facility] 05/06 09:36 Order name: PT-INR; Complete Time: 10:26 [facility] 05/06 09:36 Order name: Troponin (emerg Dept Use Only); Complete Time: 10:26 [facility] 05/06 09:36 Order name: XRAY Chest (1 view) [facility] 05/06 09:36 Order name: EKG; Complete Time: 09:37 [facility] 05/06 09:36 Order name: Cardiac monitoring; Complete Time: 09:37 [facility] 05/06 09:36 Order name: EKG - Nurse/Tech; Complete Time: 09:48 [facility] 05/06 12:18 Order name: Diet Heart Healthy; Complete Time: 12:19 05/06 09:36 Order name: IV Saline Lock; Complete Time: 09:48 [facility] 05/06 09:36 Order name: Labs collected and sent; Complete Time: 09:48 [facility] 05/06 09:36 Order name: O2 Per Protocol; Complete Time: 09:37 [facility] 05/06 09:36 Order name: O2 Sat Monitoring; Complete Time: 09:37 [facility] Administered Medications: 10:00 Drug: Aspirin Chewable Tablet 324 mg Route: PO; sg 10:59 Follow up: Response: No adverse reaction sg 13:40 Drug: Nicoderm CQ 21 mg/24 hr 1 patches Route: Transdermal; Site: affected area; sg Disposition: 05/06/19 10:46 Hospitalization ordered by Tanner Davis for Observation. Preliminary diagnosis is Other chest pain. - Bed requested for Telemetry/MedSurg (observation). - Status is Observation. sg - Condition is Stable. - Problem is new. - Symptoms are unchanged. UTI on Admission? No Signatures: Dispatcher [employer] Kassie Cramer RN RN dw Gay, Steven, RN RN sg Williams, Irene, RN RN Amberly Jenkins MD MD ma2 Corrections: (The following items were deleted from the chart) 10:45 10:45 05/06/2019 10:45 Discharged to Home. Impression: Chest pain, unspecified. ma2 Condition is Stable. Forms are Medication Reconciliation Form, Thank You Letter, Antibiotic Education, Prescription Opioid Use. Follow up: Private Physician; When: Tomorrow; Reason: Continuance of care. ma2 15:05 10:46 Hospitalization Ordered by Tanner Davis DO for Observation. Preliminary dw diagnosis is Other chest pain. Bed requested for Telemetry/MedSurg (observation). Status is Observation. Condition is Stable. Problem is new. Symptoms are unchanged. UTI on Admission? No. ma2 16:13 15:05 05/06/2019 10:46 Hospitalization Ordered by Tanner Davis DO for Observation. sg Preliminary diagnosis is Other chest pain. Bed requested for Telemetry/MedSurg (observation). Status is Observation. Condition is Stable. Problem is new. Symptoms are unchanged. UTI on Admission? No. dw
--- NOTE | 2019-05-06 10:51 | RAD REPORT ---
EXAM DESCRIPTION: RAD - Chest Single View - 05/06/2019 9:56 am CLINICAL HISTORY: Chest pain, shortness of breath COMPARISON: April 13 TECHNIQUE: AP portable chest image was obtained 0952 hours . FINDINGS: Mid and upper lung gilbert are clear of a focal lung parenchymal process. Bilateral pleural effusions with lung base atelectasis present. Lung base interstitial infiltrates could be masked. Heart and vasculature are normal. No pneumothorax. No acute bony abnormality seen. No acute aortic f indings suspected. IMPRESSION: Small to moderate bilateral pleural effusions with lung base atelectasis. No cardiomegaly.
--- NOTE | 2019-05-06 11:15 | P.HP ---
Certification for Inpatient Patient admitted to: Observation With expected LOS: <2 Midnights Patient will require the following post-hospital care: None Practitioner: I am a practitioner with admitting privileges, knowledge of patient current condition, hospital course, and medical plan of care. Services: Services provided to patient in accordance with Admission requirements found in Title 42 Section 412.3 of the Code of Federal Regulations Patient History Date of Service: 05/06/19 Primary Care Provider: None Reason for admission: Chest pain, shortness of breath History of Present Illness: 54-year-old male with history of CAD with prior stent, hypertension, hyperlipidemia, tobacco abuse and drug abuse including cocaine and methamphetamines in the past. Patient reported chest pain last night. It is mainly to the substernal region. No radiation pain noted. He reported no nausea or vomiting. Some cough and congestion noted. He admitting using crack cocaine last night. He has used methamphetamines in the past. Patient had heart catheterization done in February of 2019. He had LAD stenosis requiring stent. Echocardiogram showed a normal ejection fraction at that time. Patient is not compliant with his medications. He has not followed up with cardiology or a PCP. Patient is homeless and lives at [facility]. In the ER patient evaluated. EKG shows no significant EKG changes. Troponin unremarkable. CBC, BMP negative. Chest x-rayed showed mild pleural effusions. BMP was elevated at 4000. Patient admitted for further observation and treatment. When I saw the patient ER, he appeared stable. No significant distress noted. Patient admits to noncompliance with medication. Allergies No Known Allergies Allergy (Unverified 04/04/17 08:35) Home medications list reviewed: Yes Home Medications: Methadone 120 mg PO DAILY 02/06/19 Aspirin [Aspirin EC 81 MG] 81 mg PO DAILY #30 tablet. 02/09/19 Atorvastatin Calcium [Lipitor] 80 mg PO BEDTIME #30 tab 02/09/19 Clopidogrel Bisulfate [Plavix*] 75 mg PO DAILY #30 tablet 02/09/19 Ferrous Sulfate [Ferrous Sulfate*] 325 mg PO BID #60 tab 02/09/19 Metoprolol Tartrate [Lopressor*] 25 mg PO BID 6AM 6PM #60 tab 02/09/19 Nicotine [Nicoderm*] 21 mg TD DAILY #30 patch.td24 02/09/19 - Past Medical/Surgical History Diabetic: No -: CAD with prior stent LAD stent February 2019 -: Hypertension -: Tobacco abuse -: Depression with anxiety -: History of methamphetamine use -: History of cocaine abuse -: COPD -: Hyperlipidemia -: 5 knee surgeries -: Sinus surgery -: Cardiac stent Psychosocial/ Personal History: Patient is currently homeless and lives at the [facility]. - Family History Father -: Heart disease Mother -: Cancer - Social History Smoking Status: Heavy Tobacco smoker (>10 cigarettes/day) Counseled patient to stop smoking for: less than 10 minutes Smoking therapy provided: Yes Patient receptive to therapy: Yes Alcohol use: No CD- Drugs: Yes Caffeine use: Yes Place of Residence: Home Review of Systems General: As per HPI Eyes: Unremarkable ENT: Unremarkable Respiratory: Shortness of Breath, Wheezing, As per HPI Cardiovascular: Chest Pain, As per HPI Gastrointestinal: Unremarkable Genitourinary: Unremarkable Musculoskeletal: Unremarkable Integumentary: Unremarkable Neurological: Unremarkable Lymphatics: Unremarkable Physical Examination - Physical Exam General: Alert, In no apparent distress, Oriented x3, Cooperative HEENT: Atraumatic, Mucous membr. moist/pink Neck: Supple, No Thyromegaly Respiratory: Expiratory wheezes (Minimal wheezing), Other (Minimal crackles to the bases) Cardiovascular: Normal pulses, Regular rate/rhythm Gastrointestinal: Normal bowel sounds, Soft and benign, Non-distended, No tenderness, No masses, No rebound, No guarding Musculoskeletal: No contractures, No erythema, No tenderness, No warmth Integumentary: No tenderness/swelling, No erythema, No warmth, No cyanosis Neurological: Normal speech, Normal strength at 5/5 x4 extr, Normal tone, Normal affect - Studies Laboratory Data (last 24 hrs) 05/06/19 09:45: PT 13.1 H, INR 1.11 05/06/19 09:45: WBC 9.0, Hgb 12.5 L, Hct 39.0 L, Plt Count 394 05/06/19 09:45: Sodium 141, Potassium 4.0, BUN 10, Creatinine 1.02, Glucose 88, Magnesium 2.3, Total Bilirubin 0.4, AST 14 L, ALT 21, Alkaline Phosphatase 129 H Assessment and Plan - Plan Impression: Chest pain, shortness of breath likely COPD related with noted mild pleural effusion CAD with prior stent to the LAD Hypertension Hyperlipidemia Noncompliance with medication and follow up History of cocaine abuse and methamphetamine abuse Nicotine abuse Plan: Chest pain, shortness of breath likely COPD related with noted mild pleural effusion: Patient will be admitted for further evaluation and observation. Will continue to monitor telemetry and cardiac enzymes. Patient will be given 1 dose of IV Lasix 20 mg. Recheck chest x-ray tomorrow. Maintain oxygen above 93%. Wean off oxygen. Suspect underlying COPD. Will start COPD medication- Dulera and albuterol/Atrovent. Patient will likely require medication at discharge. Compliance with CAD medications addressed in detail. Will continue with aspirin, Plavix, Lipitor, and metoprolol. Previous echocardiogram shows ejection fraction 58%. Will continue to monitor closely. Anticipate discharge in the next 24 hr with clinical improvement. CAD with prior stent to the LAD: Compliance with medication addressed. Continue as recommended above. Continue aspirin, Plavix. Hypertension: Will start metoprolol. Hyperlipidemia: Restart Lipitor. Noncompliance with medication and follow up: Compliance addressed in detail. History of cocaine abuse and methamphetamine abuse: Will check urine drug screen. Patient admits to cocaine abuse last night. Cocaine/methamphetamine and tobacco cessation addressed in detail. Patient understands the risk of taking these medications. Will provide nicotine patch. Continue counseling for cessation. Nicotine abuse: Will provide nicotine patch. Cessation addressed. Discharge Plan: Home Plan to discharge in: 24 Hours - Advance Directives Does patient have a Living Will: No Does patient have a Durable POA for Healthcare: No - Code Status/Comfort Care Code Status Assessed: Yes (Patient is full code) Time Spent Managing Pts Care (In Minutes): 55
[2019-05-06] MEDS ORDERED: NICOTINE 21 MG/PAT TD ONE (13:45)
[2019-05-06] MEDS ORDERED: ACETAMINOPHEN 500 MG TAB PO PRN (16:27)
[2019-05-06] MEDS ORDERED: FUROSEMIDE 20 MG/ 2ML VIAL IV ONE (16:27)
[2019-05-06] MEDS ORDERED: NITROGLYCERIN 0.4 MG/TAB SL PRN (16:27)
[2019-05-06] MEDS ORDERED: ONDANSETRON 4 MG/2 ML VIAL IV PRN (16:27)
[2019-05-06 17:01] VITALS: BMI 22.4
[2019-05-06 17:08] LABS: CKMB Creatine Kinase MB 1.5 ng/mL (0.3-3.6); Creatine Phosphokinase 73 U/L (39-308); Troponin I < 0.02 ng/mL (0.0-0.045)
--- NOTE | 2019-05-06 18:36 | EKG ---
Test Date: 2019-05-06 Test Time: 09:45:11 Animal Warden: SWG MEASUREMENT RESULTS: Intervals: Rate: 102 NC: 166 QRSD: 84 QT: 344 QTc: 448 Winn: P: 67 NC: 166 QRS: 35 T: 78 INTERPRETIVE STATEMENTS: Sinus tachycardia Septal infarct, age undetermined T wave abnormality, consider lateral ischemia Abnormal ECG Compared to ECG 04/13/2019 12:56:55 Myocardial infarct finding now present Sinus rhythm no longer present Atrial premature complex(es) no longer present T-wave abnormality still present Possible ischemia still present Electronically Signed On 05-06-19 18:35:09 EQUIPMENT COORDINATOR by Reynold Devi
[2019-05-06] MEDS: METOPROLOL TAR 25 MG TAB PO SCH (18:39)
[2019-05-06 19:41] LABS: Urine Bilirubin NEGATIVE (NEG); Urine Blood NEGATIVE (NEG); Urine Color YELLOW; Urine Glucose NEGATIVE (NEG); Urine Protein NEGATIVE (NEG); Urine Urobilinogen 0.2 mg/dL (0.2-1.0)
[2019-05-06 19:51] LABS: Urine Microscopic Reflex ORDER UMIC
[2019-05-06 19:56] LABS: Urine Appearance HAZY
[2019-05-06 19:57] LABS: Urine Bacteria NONE SEEN /HPF (NONE SEEN); Urine Culture Reflex Order NOT NEEDED; Urine RBC NONE SEEN /HPF (NONE SEEN)
[2019-05-06] MEDS: DULERA 100/5 (MOMETASONE/FORMOTEROL) INHALER IH SCH (21:00)
[2019-05-06] MEDS ORDERED: ATORVASTATIN 40 MG TAB PO SCH (21:00)
[2019-05-06] MEDS: IPRATROPIUM BROM 0.5MG/2.5ML NEB PRN (21:25)
[2019-05-06] MEDS: ALBUTEROL 2.5 MG/3 ML NEB SOL NEB PRN (21:25)
[2019-05-06] MEDS: ALPRAZOLAM 0.25 MG TABLET PO PRN (22:34)
[2019-05-07 01:17] LABS: CKMB Creatine Kinase MB 1.1 ng/mL (0.3-3.6); Creatine Phosphokinase 45 U/L (39-308); Troponin I < 0.02 ng/mL (0.0-0.045)
[2019-05-07 04:40] LABS: Magnesium 2.1 mg/dL (1.8-2.4); Potassium 3.8 mmol/L (3.5-5.1)
[2019-05-07] MEDS: METOPROLOL TAR 25 MG TAB PO SCH (05:07)
[2019-05-07] MEDS: IPRATROPIUM BROM 0.5MG/2.5ML NEB PRN (05:15)
[2019-05-07] MEDS: ALBUTEROL 2.5 MG/3 ML NEB SOL NEB PRN (05:15)
[2019-05-07 06:00] VITALS: O2SAT 96
[2019-05-07] MEDS: ALPRAZOLAM 0.25 MG TABLET PO PRN (06:06)
[2019-05-07] MEDS ORDERED: POTASSIUM CL SA 10 MEQ TAB PO ONE (08:00)
[2019-05-07] MEDS ORDERED: CLOPIDOGREL 75 MG TABLET PO SCH (09:00)
[2019-05-07] MEDS ORDERED: ENOXAPARIN 40 MG/0.4 ML SQ SCH (09:00)
[2019-05-07] MEDS ORDERED: INFLUENZA VACCINE (for 3y+) 0.5 ML DOSE IMVAC ONE (09:00)
[2019-05-07] MEDS ORDERED: PNEUMOCOCCAL VACCINE 0.5 ML IMVAC ONE (09:00)
[2019-05-07] MEDS ORDERED: NICOTINE 21 MG/PAT TD SCH (09:00)
[2019-05-07] MEDS ORDERED: ASPIRIN EC 81 MG TAB PO SCH (09:00)
[2019-05-07] MEDS ORDERED: ALBUTEROL INHALER 60 PUFF/8 GM IH PRN (11:09)
--- NOTE | 2019-05-07 11:15 | P.DS ---
Admission Date: 05/06/19 Discharge Date: 05/07/19 Primary Care Provider: None Disposition: ROUTINE DISCHARGE Discharge Condition: GOOD Reason for Admission: Chest pain, shortness of breath Consultations: none Procedures: Medical problem list: Chest pain, shortness of breath likely COPD related with noted mild pleural effusion CAD with prior stent to the LAD Hypertension Hyperlipidemia Noncompliance with medication and follow up History of cocaine abuse and methamphetamine abuse Nicotine abuse Brief History of Present Illness: 54-year-old male with history of CAD with prior stent, hypertension, hyperlipidemia, tobacco abuse and drug abuse including cocaine and methamphetamines in the past. Patient reported chest pain last night. It is mainly to the substernal region. No radiation pain noted. He reported no nausea or vomiting. Some cough and congestion noted. He admitting using crack cocaine last night. He has used methamphetamines in the past. Patient had heart catheterization done in February of 2019. He had LAD stenosis requiring stent. Echocardiogram showed a normal ejection fraction at that time. Patient is not compliant with his medications. He has not followed up with cardiology or a PCP. Patient is homeless and lives at [facility]. In the ER patient evaluated. EKG shows no significant EKG changes. Troponin unremarkable. CBC, BMP negative. Chest x-rayed showed mild pleural effusions. BMP was elevated at 4000. Patient admitted for further observation and treatment. When I saw the patient ER, he appeared stable. No significant distress noted. Patient admits to noncompliance with medication. Hospital Course: Patient presented with chest pain and shortness of breath likely COPD related with mild pleural effusion. Patient was admitted for observation. Patient received 1 dose of IV Lasix with improvement. Patient has been non compliant with his medication. Patient with history of CAD with prior stent to the LAD. Patient was started on COPD medication. Patient improved. Cardiac enzymes unremarkable. CAD medications were restarted. At discharge for his COPD, patient will continue with Dulera 1 puff twice daily and Pro air 2 puffs 3 times a day as needed for shortness of breath. Recommend follow up with pulmonology as an outpatient to further monitor and address. For his CAD, patient will continue with aspirin 81 mg daily, Plavix 75 mg daily, Lipitor 80 mg daily, and metoprolol 25 mg 1 pill twice daily and nitroglycerin to be use as needed for chest pain. Recommend follow up with cardiology in 2-4 weeks to monitor his progress. Education on CAD and COPD will be provided. Recommend to establish care with a local PCP to continue his care. Patient with hypertension. Patient not on medication prior to admission. Blood pressures were elevated. With his history of CAD and elevated blood pressure, patient was started on metoprolol. At discharge blood pressure stable. At discharge he will continue with metoprolol 25 mg 1 pill twice daily. The patient has hyperlipidemia. At discharge patient will continue with Lipitor 80 mg daily. Patient admits cocaine abuse. Patient with history of methamphetamine abuse. Urine drug screen obtained. Cocaine and methamphetamine cessation addressed in detail. Patient plans to quit. Patient with tobacco abuse. Nicotine patch provided. Cessation education provided as well. Vital Signs/Physical Exam: Temp Pulse Resp BP Pulse Ox 97.8 F 72 16 120/74 99 05/07/19 08:00 05/07/19 08:00 05/07/19 08:00 05/07/19 08:00 05/07/19 08:00 General: Alert, In no apparent distress, Oriented x3, Cooperative HEENT: Atraumatic Neck: Supple Respiratory: Clear to auscultation bilaterally, Normal air movement Cardiovascular: Normal pulses, Regular rate/rhythm Gastrointestinal: Normal bowel sounds, Soft and benign, Non-distended, No tenderness, No masses, No rebound, No guarding Musculoskeletal: No erythema, No tenderness, No warmth Integumentary: No tenderness/swelling, No erythema, No warmth, No cyanosis Neurological: Normal speech, Normal strength at 5/5 x4 extr, Normal tone Laboratory Data at Discharge: WBC 9.0 K/uL (4.3-10.9) 05/06/19 09:45 Hgb 12.5 g/dL (13.6-17.9) L 05/06/19 09:45 Hct 39.0 % (39.6-49.0) L 05/06/19 09:45 Plt Count 394 K/uL (152-406) 05/06/19 09:45 PT 13.1 SECONDS (9.5-12.5) H 05/06/19 09:45 INR 1.11 05/06/19 09:45 Sodium 141 mmol/L (136-145) 05/07/19 03:40 Potassium 3.8 mmol/L (3.5-5.1) 05/07/19 03:40 BUN 13 mg/dL (7-18) 05/07/19 03:40 Creatinine 0.96 mg/dL (0.55-1.3) 05/07/19 03:40 Glucose 86 mg/dL (74-106) 05/07/19 03:40 Magnesium 2.1 mg/dL (1.8-2.4) 05/07/19 03:40 Total Bilirubin 0.4 mg/dL (0.2-1.0) 05/06/19 09:45 AST 14 U/L (15-37) L 05/06/19 09:45 ALT 21 U/L (12-78) 05/06/19 09:45 Alkaline Phosphatase 129 U/L (45-117) H 05/06/19 09:45 Troponin I < 0.02 ng/mL (0.0-0.045) 05/07/19 00:46 Home Medications: Aspirin [Aspirin EC 81 MG] 81 mg PO DAILY #90 tablet. 05/07/19 Atorvastatin Calcium [Lipitor] 80 mg PO BEDTIME #30 tab 05/07/19 Clopidogrel Bisulfate [Plavix*] 75 mg PO DAILY #30 tablet 05/07/19 Metoprolol Tartrate [Lopressor*] 25 mg PO BID 6AM 6PM #60 tab 05/07/19 Mometasone/Formoterol [Dulera 100 Mcg/5 Mcg Inhaler] 2 puff IH BID #1 inhaler Nicotine [Nicoderm*] 21 mg TD DAILY #30 patch.td24 05/07/19 Nitroglycerin [Nitrostat*] 0.4 mg SL SEECOM PRN #30 tab 05/07/19 New Medications: Aspirin [Aspirin EC 81 MG] 81 mg PO DAILY #90 tablet. Atorvastatin Calcium [Lipitor] 80 mg PO BEDTIME #30 tab Clopidogrel Bisulfate [Plavix*] 75 mg PO DAILY #30 tablet Metoprolol Tartrate [Lopressor*] 25 mg PO BID 6AM 6PM #60 tab Mometasone/Formoterol [Dulera 100 Mcg/5 Mcg Inhaler] 2 puff IH BID #1 inhaler Nicotine [Nicoderm*] 21 mg TD DAILY #30 patch.td24 Nitroglycerin [Nitrostat*] 0.4 mg SL SEECOM PRN #30 tab PRN Reason: Pain Scale 2-4 (Mild) Patient Discharge Instructions: 1. Follow up with a PCP to establish care to follow up this hospitalization. 2. Patient presented with chest pain and shortness of breath likely COPD related with mild pleural effusion. Patient was admitted for observation. Patient received 1 dose of IV Lasix with improvement. Patient has been non compliant with his medication. Patient with history of CAD with prior stent to the LAD. Patient was started on COPD medication. Patient improved. Cardiac enzymes unremarkable. CAD medications were restarted. At discharge for his COPD, patient will continue with Dulera 1 puff twice daily and Pro air 2 puffs 3 times a day as needed for shortness of breath. Recommend follow up with pulmonology as an outpatient to further monitor and address. For his CAD, patient will continue with aspirin 81 mg daily, Plavix 75 mg daily, Lipitor 80 mg daily, and metoprolol 25 mg 1 pill twice daily and nitroglycerin to be use as needed for chest pain. Recommend follow up with cardiology in 2-4 weeks to monitor his progress. Education on CAD and COPD will be provided. Recommend to establish care with a local PCP to continue his care. 3. Patient with hypertension. Patient not on medication prior to admission. Blood pressures were elevated. With his history of CAD and elevated blood pressure, patient was started on metoprolol. At discharge blood pressure stable. At discharge he will continue with metoprolol 25 mg 1 pill twice daily. 4. The patient has hyperlipidemia. At discharge patient will continue with Lipitor 80 mg daily. 5. Patient admits cocaine abuse. Patient with history of methamphetamine abuse. Urine drug screen obtained. Cocaine and methamphetamine cessation addressed in detail. Patient plans to quit. 6. Patient with tobacco abuse. Nicotine patch provided. Cessation education provided as well. Diet: AHA Activity: Ad francesca Time spent managing pt's care (in minutes): 55
[2019-05-07] MEDS: DULERA 100/5 (MOMETASONE/FORMOTEROL) INHALER IH SCH (11:26)
[2019-05-07 11:43] VITALS: BP 125/79; TEMP 97.6
--- NOTE | 2019-05-07 12:50 | RAD REPORT ---
EXAM DESCRIPTION: Sampson Pa And Lat (2 Views)05/07/2019 12:14 pm CLINICAL HISTORY: Cough COMPARISON: May 06, 2019 FINDINGS: Pleural effusions have decreased in size and are small The lungs appear clear of acute infiltrate. The heart is normal size IMPRESSION: Small bilateral pleural effusions
== END 2019-05-07 14:32 | disposition home or self-care (01) ==
LOC: ER 09:21 → ERHOLD 11:04 → 4TH 15:57
PROVIDERS: ADMIT Family Medicine; ATTEND Family Medicine
DX: R07.9 Chest pain, unspecified (principal); J90 Pleural effusion, not elsewhere classified; I25.10 Atherosclerotic heart disease of native coronary artery without angina pectoris; F14.10 Cocaine abuse, uncomplicated; I10 Essential (primary) hypertension; E78.5 Hyperlipidemia, unspecified; F15.10 Other stimulant abuse, uncomplicated; Z91.14 Patient's other noncompliance with medication regimen; Z95.5 Presence of coronary angioplasty implant and graft; Z23 Encounter for immunization; Z59.0 Homelessness
CPT/HCPCS: 36415; 71045; 71046; 80048; 80076; 81003; 81015; 82550; 82553; 83735; 83880; 84484; 85025; 85610; 90471; 90670; 93005; 94640; 99285; G0378; J1650; J1940; J7606; Q2035

== ENCOUNTER 2019-09-10 11:49 | Emergency (ER) | payer SELFPAY ==
--- OUTSIDE RECORDS SUMMARY | 2019-09-10 11:51 | XMS REPORT | Clinical Summary ---
:1965 Author Organization [facility] Address [address] [place] [address] Care Team Providers Name Role Phone Unavailable Primary Care Provider Unavailable Allergies No Known Allergies Medications Medication Sig Dispensed Refills Start Date End Date Status methadone (DOLOPHINE) Take 120 mg by 0 Active 10 MG mouth daily. tabletIndications: opioid withdrawal symptoms aspirin 81 MG chewable Take 81 mg by 0 Active tablet mouth daily. ranitidine (ZANTAC) 150 Take 150 mg by 0 Active MG tablet mouth 2 (two) times daily. 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 GERD (gastroesophageal reflux disease) 04/04/2017 Chronic combined systolic and diastolic CHF (congestiv e heart failure) 04/04/2017 Family History Medical History Relation Name Comments Cancer Maternal Aunt Cancer Mother Relation Name Status Comments Maternal Aunt Mother Social History Tobacco Use Types Packs/Day Years Used Date Current Every Day Smoker Smokeless Tobacco: Former User Tobacco Cessation: Ready to Quit: Yes; C ounseling Given: Yes Alcohol Use Drinks/Week oz/Week Comments No Sex Assigned at Date Recorded Not on file Job Start Date Occupation Industry Not on file Not on file Not on file Travel History Travel Start Travel End No recent travel history available. 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
--- OUTSIDE RECORDS SUMMARY | 2019-09-10 11:52 | XMS REPORT ---
:1965 Author Organization [facility] t Address [address] [place] [address] Care Team Providers Name Role Phone NENO Unavailable Unavailable DIXON Unavailable Unavailable Payers Payer Name Policy Type Policy Number Effective Date Expiration D ate Problems This patient has no known problems. Allergies, Adverse Reactions, Alerts Allergy Allergy Status Severity Reaction(s) Onset Inactive Treating C omments Name Type Date Date Clinician No Known DA Active U 2019-02 Allergies 16 00:00:0 0 Medications This patient has no known medications. Results Test Description Test Time Test Comments Text Results Atomic Results Result Comments COMPREHENSIVE METABOLIC PANEL 2019-02-19 08:21:00 Test Item Value Reference Range Comments SODIUM (test code = NA) 139.0 mmol/L 133-144 POTASSIUM (test code = K) 3.9 mmol/L 3.5-5.1 CHLORIDE (test code = CL) 111 mmol/L 95-105 CARBON DIOXIDE (test code = 19 mmol/L 21-32 CO2) ANION GAP (test code = GAP) 9.0 GAP calc 4.0-15.0 GLUCOSE (test code = GLU) 119 MG/DL 70-110 BLOOD UREA NITROGEN (test 12 MG/DL 7-18 code = BUN) GLOMERULAR FILTRATION RATE 89 estGFR >60 The e stimated glomerular (test code = GFR) filtration rat e is computed usingpatient rac e, age, sex, and serum c reatinine. If any of thenee ded data elements are mis sing the Laboratory can n otcompute an estimation of the glomerular filtr ation rate.The GFR yosvany ue units = ml/min/1.73 mete r squared. EstimatedGFR yosvany ues above 60 should be int erpreted as >60, not anexact number.--- DRUG DOSAGE ALER T --- Drug dosage adjustmen ts utilize different calculationparam eters. CREATININE (test code = 0.90 MG/DL 0.55-1.30 Results may be depressed if CREAT) patient is takingN-Acetylcy steine (NAC) and Metami zole (Dipyrone). TOTAL PROTEIN (test code = 7.0 G/DL 6.4-8.2 PROT) ALBUMIN (test code = ALB) 2.9 G/DL 3.4-5.0 ALBUMIN/GLOBULIN RATIO 0.7 RATIO 1.2-2.2 (test code = A/G) CALCIUM (test code = CA) 8.8 MG/DL 8.5-10.1 BILIRUBIN TOTAL (test code 0.59 MG/DL 0.00-1.00 = BILT) BILIRUBIN DIRECT (test code 0.13 MG/DL 0.00-0.30 = BILD) BILIRUBIN INDIRECT (test 0.46 MG/DL 0.2-1.3 code = BILIND) SGOT/AST (test code = AST) 332 Unit/L 15-37 SGPT/ALT (test code = ALT) 45 Unit/L 12-78 ALKALINE PHOSPHATASE TOTAL 125 Unit/L 45-117 (test code = ALKP) INDEX HEMOLYSIS (test code 1 NORMAL <10 MG 1 NORMAL = HEMINDEX) Index/DL INDEX ICTERIC (test code = 1 NORMAL <2 MG 1 NORMAL ICTINDEX) Index/DL INDEX LIPEMIA (test code = 1 NORMAL <50 MG 1 NORMAL LIPINDEX) Index/DL [id number] 08:21:00 Test Item Value Reference Range Comments TROPONIN-I (test 120.000 NG/ML 0.000-0.045 Critical values after the first code = TROPI) occurrence are e xcluded fromcall documentation re quirements for this analyte due to t hepatient diagnosis or therapy carolyne cols.REPORTED RESULTS VERIFIED WITH AUTO-DILUTION PROCEDURES.An el evated troponin value alone is n ot sufficient todiagnose a brianna cardial infarction. Rather, the rashi ent'sclinical presentation (hi story, physical exam) and ECGsho uld be used in conjunction with troponin in thediagnostic ev aluation of suspected myocar dial infarction. Aserial sampling protocol is recommended to f acilitate theidentificatio n of temporal changes in tropo kasey levelscharacteri stic of CA. COMPREHENSIVE METABOLIC [id number] 07:28:00 Test Item Value Reference Range Comments SODIUM (test code = NA) 139.0 mmol/L 133-144 POTASSIUM (test code = K) 3.9 mmol/L 3.5-5.1 CHLORIDE (test code = CL) 111 mmol/L 95-105 CARBON DIOXIDE (test code 19 mmol/L 21-32 = CO2) ANION GAP (test code = 9.0 GAP calc 4.0-15.0 GAP) GLUCOSE (test code = GLU) 119 MG/DL 70-110 BLOOD UREA NITROGEN (test 12 MG/DL 7-18 code = BUN) GLOMERULAR FILTRATION 89 estGFR >60 The estima sb glomerular RATE (test code = GFR) filtratio n rate is computed usingpa tient race, age, sex, and serum creatinine. If any of theneeded data e lements are missing the Laboratory can n otcompute an estimation of the glomerular filtr ation rate.The GFR yosvany ue units = ml/min/1.[address] squared. Estima tedGFR values above 60 should be interpreted as > 60, not anexact number.- -- DRUG DOSAGE ALERT --- Drug dosage adjustmen ts utilize differen t calculationparam eters. CREATININE (test code = 0.90 MG/DL 0.55-1.30 Results may be depressed CREAT) if patient is takingN-Acetylcy steine (NAC) and Metami zole (Dipyrone). TOTAL PROTEIN (test code 7.0 G/DL 6.4-8.2 = PROT) ALBUMIN (test code = ALB) 2.9 G/DL 3.4-5.0 ALBUMIN/GLOBULIN RATIO 0.7 RATIO 1.2-2.2 (test code = A/G) CALCIUM (test code = CA) 8.8 MG/DL 8.5-10.1 BILIRUBIN TOTAL (test 0.59 MG/DL 0.00-1.00 code = BILT) BILIRUBIN DIRECT (test 0.13 MG/DL 0.00-0.30 code = BILD) BILIRUBIN INDIRECT (test 0.46 MG/DL 0.2-1.3 code = BILIND) SGOT/AST (test code = 332 Unit/L 15-37 AST) SGPT/ALT (test code = 45 Unit/L 12-78 ALT) ALKALINE PHOSPHATASE 125 Unit/L 45-117 TOTAL (test code = ALKP) INDEX HEMOLYSIS (test 1 NORMAL <10 MG 1 NORMAL code = HEMINDEX) Index/DL INDEX ICTERIC (test code 1 NORMAL <2 MG 1 NORMAL = ICTINDEX) Index/DL INDEX LIPEMIA (test code 1 NORMAL <50 MG 1 NORMAL = LIPINDEX) Index/DL [id number] 07:28:00 Test Item Value Reference Range Comments TROPONIN-I (test code = TROPI) NG/ML 0.000-0.045 COMPREHENSIVE METABOLIC [id number] 07:26:00 Test Item Value Reference Range Comments SODIUM (test code = NA) 139.0 mmol/L 133-144 POTASSIUM (test code = K) 3.9 mmol/L 3.5-5.1 CHLORIDE (test code = CL) 111 mmol/L 95-105 CARBON DIOXIDE (test code 19 mmol/L 21-32 = CO2) ANION GAP (test code = 9.0 GAP calc 4.0-15.0 GAP) GLUCOSE (test code = GLU) 119 MG/DL 70-110 BLOOD UREA NITROGEN (test 12 MG/DL 7-18 code = BUN) GLOMERULAR FILTRATION 89 estGFR >60 The estima sb glomerular RATE (test code = GFR) filtratio n rate is computed usingpa tient race, age, sex, and serum creatinine. If any of theneeded data e lements are missing the Laboratory can n otcompute an estimation of the glomerular filtr ation rate.The GFR yosvany ue units = ml/min/1.[address] squared. Estima tedGFR values above 60 should be interpreted as > 60, not anexact number.- -- DRUG DOSAGE ALERT --- Drug dosage adjustmen ts utilize differen t calculationparam eters. CREATININE (test code = 0.90 MG/DL 0.55-1.30 Results may be depressed CREAT) if patient is takingN-Acetylcy steine (NAC) and Metami zole (Dipyrone). TOTAL PROTEIN (test code G/DL 6.4-8.2 = PROT) ALBUMIN (test code = ALB) 2.9 G/DL 3.4-5.0 ALBUMIN/GLOBULIN RATIO RATIO 1.2-2.2 (test code = A/G) CALCIUM (test code = CA) 8.8 MG/DL 8.5-10.1 BILIRUBIN TOTAL (test MG/DL 0.00-1.00 code = BILT) BILIRUBIN DIRECT (test 0.13 MG/DL 0.00-0.30 code = BILD) BILIRUBIN INDIRECT (test MG/DL 0.2-1.3 code = BILIND) SGOT/AST (test code = Unit/L 15-37 AST) SGPT/ALT (test code = Unit/L 12-78 ALT) ALKALINE PHOSPHATASE Unit/L 45-117 TOTAL (test code = ALKP) INDEX HEMOLYSIS (test 1 NORMAL <10 MG 1 NORMAL code = HEMINDEX) Index/DL INDEX ICTERIC (test code 1 NORMAL <2 MG 1 NORMAL = ICTINDEX) Index/DL INDEX LIPEMIA (test code 1 NORMAL <50 MG 1 NORMAL = LIPINDEX) Index/DL [id number] 07:26:00 Test Item Value Reference Range Comments TROPONIN-I (test code = TROPI) NG/ML 0.000-0.045 CBC W/AUTO [id number] 07:06:00 Test Item Value Reference Range Comments WHITE BLOOD CELL (test code = WBC) 15.4 K/mm3 4.1-12.1 RED BLOOD CELL (test code = RBC) 4.28 M/mm3 3.8-5.5 HEMOGLOBIN (test code = HGB) 12.3 G/DL 10.6-15.8 HEMATOCRIT (test code = HCT) 39.5 % 31.8-47.4 MEAN CELL VOLUME (test code = MCV) 92.3 fL 80.1-101.1 MEAN CELL HGB (test code = MCH) 28.7 pg 25.3-35.3 MEAN CELL HGB CONCETRATION (test code = MCHC) 31.1 G/DL 32 .7-35.1 RED CELL DISTRIBUTION WIDTH (test code = RDW) 14.1 % 12 .2-16.4 RED CELL DISTRIBUTION WIDTH (test code = 47.8 fL 35.1-43 .9 RDW-SD) PLATELET COUNT (test code = PLT) 293 K/mm3 155-337 MEAN PLATELET VOLUME (test code = MPV) 10.5 fL 7.6-10.4 GRANULOCYTE % (test code = GR%) 87.6 % 37.8-82.6 IMMATURE GRANULOCYTE % (test code = IG%) 0.4 % 0.0-2.0 LYMPHOCYTE % (test code = LY%) 7.3 % 14.1-45.4 MONOCYTE % (test code = MO%) 4.3 % 2.5-11.7 EOSINOPHIL % (test code = EO%) 0.1 % 0.0-6.2 BASOPHIL % (test code = BA%) 0.3 % 0.0-2.6 NUCLEATED RBC % (test code = NRBC%) 0.0 /100WBC% 0.0-1.0 GRANULOCYTE # (test code = GR#) 13.53 k/mm3 2.0-13.7 IMMATURE GRANULOCYTE # (test code = IG#) 0.06 K/mm3 0.00-0. 03 LYMPHOCYTE # (test code = LY#) 1.12 K/mm3 0.6-3.8 MONOCYTE # (test code = MO#) 0.67 K/mm3 0.11-0.59 EOSINOPHIL # (test code = EO#) 0.01 K/mm3 0.0-0.4 BASOPHIL # (test code = BA#) 0.04 K/mm3 0.0-0.1 NUCLEATED RBC # (test code = NRBC#) 0.00 K/mm3 0.00-0.05 [id number] 00:55:00 Test Item Value Reference Range Comments TROPONIN-I (test 111.000 NG/ML 0.000-0.045 Critical values after the first code = TROPI) occurrence are e xcluded fromcall documentation re quirements for this analyte due to t hepatient diagnosis or therapy carolyne cols.REPORTED RESULTS VERIFIED WITH AUTO-DILUTION PROCEDURES.An el evated troponin value alone is n ot sufficient todiagnose a brianna cardial infarction. Rather, the rashi ent'sclinical presentation (hi story, physical exam) and ECGsho uld be used in conjunction with troponin in thediagnostic ev aluation of suspected myocar dial infarction. Aserial sampling protocol is recommended to f acilitate theidentificatio n of temporal changes in tropo kasey levelscharacteri stic of CA. [id number] 21:24:00 Test Item Value Reference Range Comments TROPONIN-I (test 15.100 NG/ML 0.000-0.045 centrifugation, rerun/recheck from code = TROPI) primary tube. ON 02/18/19 AT 2124, OKSANA CALLED TO LEYDI CHANDNI. The report was c onfirmed by read back protocols Y ,N: YES. Critical values after the first occurrence are excluded.An elevated troponin value alone is n ot sufficient todiagnose a brianna cardial infarction. Rather, the rashi ent'sclinical presentation (hi story, physical exam) and ECGsho uld be used in conjunction with troponin in thediagnostic ev aluation of suspected myocar dial infarction. Aserial sampling protocol is recommended to f acilitate theidentificatio n of temporal changes in tropo kasey levelscharacteri stic of CA. COMPREHENSIVE METABOLIC [id number] 18:32:00 Test Item Value Reference Range Comments SODIUM (test code = NA) 140.0 mmol/L 133-144 POTASSIUM (test code = K) 3.3 mmol/L 3.5-5.1 CHLORIDE (test code = CL) 110 mmol/L 95-105 CARBON DIOXIDE (test code 21 mmol/L 21-32 = CO2) ANION GAP (test code = 9.0 GAP calc 4.0-15.0 GAP) GLUCOSE (test code = GLU) 148 MG/DL 70-110 BLOOD UREA NITROGEN (test 13 MG/DL 7-18 code = BUN) GLOMERULAR FILTRATION 70 estGFR >60 The estima sb glomerular RATE (test code = GFR) filtratio n rate is computed usingpa tient race, age, sex, and serum creatinine. If any of theneeded data e lements are missing the Laboratory can n otcompute an estimation of the glomerular filtr ation rate.The GFR yosvany ue units = ml/min/1.[address] squared. Estima tedGFR values above 60 should be interpreted as > 60, not anexact number.- -- DRUG DOSAGE ALERT --- Drug dosage adjustmen ts utilize differen t calculationparam eters. CREATININE (test code = 1.10 MG/DL 0.55-1.30 Results may be depressed CREAT) if patient is takingN-Acetylcy steine (NAC) and Metami zole (Dipyrone). TOTAL PROTEIN (test code 6.6 G/DL 6.4-8.2 = PROT) ALBUMIN (test code = ALB) 2.9 G/DL 3.4-5.0 ALBUMIN/GLOBULIN RATIO 0.8 RATIO 1.2-2.2 (test code = A/G) CALCIUM (test code = CA) 8.2 MG/DL 8.5-10.1 BILIRUBIN TOTAL (test 0.25 MG/DL 0.00-1.00 code = BILT) BILIRUBIN DIRECT (test 0.11 MG/DL 0.00-0.30 code = BILD) BILIRUBIN INDIRECT (test 0.14 MG/DL 0.2-1.3 code = BILIND) SGOT/AST (test code = 12 Unit/L 15-37 AST) SGPT/ALT (test code = 14 Unit/L 12-78 ALT) ALKALINE PHOSPHATASE 119 Unit/L 45-117 TOTAL (test code = ALKP) INDEX HEMOLYSIS (test 1 NORMAL <10 MG 1 NORMAL code = HEMINDEX) Index/DL INDEX ICTERIC (test code 1 NORMAL <2 MG 1 NORMAL = ICTINDEX) Index/DL INDEX LIPEMIA (test code 1 NORMAL <50 MG 1 NORMAL = LIPINDEX) Index/DL COMPREHENSIVE METABOLIC [id number] 18:29:00 Test Item Value Reference Range Comments SODIUM (test code = NA) 140.0 mmol/L 133-144 POTASSIUM (test code = K) 3.3 mmol/L 3.5-5.1 CHLORIDE (test code = CL) 110 mmol/L 95-105 CARBON DIOXIDE (test code = CO2) 21 mmol/L 21-32 ANION GAP (test code = GAP) 9.0 GAP calc 4.0-15.0 GLUCOSE (test code = GLU) 148 MG/DL 70-110 BLOOD UREA NITROGEN (test code = 13 MG/DL 7-18 BUN) CREATININE (test code = CREAT) MG/DL 0.55-1.30 TOTAL PROTEIN (test code = PROT) G/DL 6.4-8.2 ALBUMIN (test code = ALB) 2.9 G/DL 3.4-5.0 ALBUMIN/GLOBULIN RATIO (test code = RATIO 1.2-2.2 A/G) CALCIUM (test code = CA) 8.2 MG/DL 8.5-10.1 BILIRUBIN TOTAL (test code = BILT) MG/DL 0.00-1.00 BILIRUBIN DIRECT (test code = BILD) 0.11 MG/DL 0.00-0.30 BILIRUBIN INDIRECT (test code = MG/DL 0.2-1.3 BILIND) SGOT/AST (test code = AST) Unit/L 15-37 SGPT/ALT (test code = ALT) Unit/L 12-78 ALKALINE PHOSPHATASE TOTAL (test Unit/L 45-117 code = ALKP) INDEX HEMOLYSIS (test code = 1 NORMAL <10 MG Index/DL 1 NORMAL HEMINDEX) INDEX ICTERIC (test code = 1 NORMAL <2 MG Index/DL 1 NORMAL ICTINDEX) INDEX LIPEMIA (test code = 1 NORMAL <50 MG Index/DL 1 NORMAL LIPINDEX) PT AND [id number] 18:14:00 Test Item Value Reference Range Comments PT PATIENT (test code = 12.2 SECONDS 9.4-12.5 PTP) INTERNATIONAL NORMAL 1.05 INR Unit 0.88-1.13 RATIO (test code = INR) -------- T herapeutic range for INR is dependent upon t he situation.2.0-3. 0 Prophylaxis / venous thrombo embolism, Treatment of DVT, Acute myocardial infar ction stroke prevention, Systemic embolism prevent ion in fibrillation3.0- 4.5 AMI recurrence preve ntion, Systemic embolis m prevention in pr osthetic heart 3.0-5.4 AMI mort ality reduction THROMBOPLASTIN TIME 23.5 SECONDS 24-37.7 THERAPEUTIC RANGE FOR PARTIAL (test code = PTT) UNFRAC TIONATED HEPARIN = 50.5-83.6 SEC Th is test is not recommended to m onitor low molecularweight heparin or danaparoid. Orde r LMWH test COLLECTION THROU GH LINES THAT HAVE BEEN PREVIO USLY FLUSHEDWITH HEPA RIN SHOULD BE AVOIDED DUE TO P OSSIBLE HEPARINCONTAMINA TION - CT HEAD/BRAIN W/O [id number] 18:12:00 Patient Name: ANAHY PONCE Unit No: [id number] EXAMS: CPT CODE: [id number] CT HEAD/BRAIN W/O CONT 13497 Location: T18 CT head, 02/18/19 COMPARISON EXAMS:Noneof the brain TECHNIQUE: CT examination of the brain was performed without contrast on a helical scanner. Scanning conducted from skull base to vertex in the axial plane acquiring contiguous 5mm slice thickness . The examination was performed on a [facility] at helical CT scanner utilizing low-dose radiation technique. [...] Date/Time: 02/18/2019 (1811) Technologist: Sarai Larry - Rico CTDI: 46.15 DLP: 757.79 Trnscrpt: 02/18/2019 (1811) [email or web address] [facility] NAME: ANAHY PONCE [address] [place] [address] PHYS: KARY.Ceci - [place], [place] [address] : 1965 AGE: 53 SEX: M LOC: NAE PHONE #: [phone] EXAM DATE: 02/18/2019 STATUS: PRE ER FAX #: [phone] RAD #: D/C DT PAGE 1 Signed Report Patient N livia: ANAHY PONCE Unit No: [id number] EXAMS: CPT CODE: [id number] CT HEAD/BRAIN W/O CONT [id number] <Continued> Orig Print D/T: S: 02/18/2019 (181) ELIPDIO Dorado NAME: ANAHY PONCE [address] [place] [address] Blvd PHYS: YI - [place], [place] [address] : 1965 AGE: 53 SEX: M LOC: B.ERS PHONE #: [phone] EXAM DATE: 02/18/2019 STATUS: PRE ER FAX #: [phone] RAD #: D/C DT PAGE 2 Signed ReportTROPONIN I [id number] 18:08:00 Test Item Value Reference Range Comments TROPONIN I RAPID (test 0.01 NG/ML 0.00-0.07 An elevat ed troponin value alone is code = TROPIRAP) not sufficient todiagnose a myocardial infar ction. Rather, the patient'sclinica l presentation (history, physic al exam) and ECGshould be use d in conjunction with troponin in thediagnostic evaluation of de la cruz spected myocardial infarction. Aser ial sampling protocol is soham mmended to facilitate theid entification of temporal changes in troponin levelscharacteri stic of CA. CHEMISTRY 7 [id number] 18:03:00 Test Item Value Reference Range Comments IONIZED CALCIUM (test code = CAIABG) mmol/L 1.13-1.32 ISTAT-TCO2 VENOUS (test code = TCO2VP) MMOL/L 21-32 ISTAT-SODIUM (test code = NAP) MMOL/L 135-148 ISTAT-POTASSIUM (test code = KP) MMOL/L 3.5-5.9 ISTAT-CHLORIDE (test code = CLP) MMOL/L 98-106 ISTAT-ANION GAP (test code = GAPP) MEQ/L 10-20 ISTAT-GLUCOSE (test code = GLUP) MG/DL 70-119 ISTAT-BUN (test code = BUNP) MG/DL 8-28 BEDSIDE CREATININE (test code = CREATBED) MG/DL 0.6-1. 2 GLOMERULAR FILTRATION RATE POC (test code = GFRBED) 70 56-130 CHEMISTRY 7 [id number] 18:03:00 Test Item Value Reference Range Comments IONIZED CALCIUM (test code = 1.15 mmol/L 1.13-1.32 CAIABG) ISTAT-TCO2 VENOUS (test code = 21 MMOL/L 21-32 TCO2VP) ISTAT-SAMPLE SOURCE (test code = UNKNOWN SPEC TYPE Descript Spec imen SRCIST) ISTAT-SODIUM (test code = NAP) 142 MMOL/L 135-148 ISTAT-POTASSIUM (test code = KP) 3.4 MMOL/L 3.5-5.9 ISTAT-CHLORIDE (test code = CLP) 107 MMOL/L 98-106 ISTAT-ANION GAP (test code = 18.0 MEQ/L 10-20 GAPP) ISTAT-GLUCOSE (test code = GLUP) 147 MG/DL 70-119 ISTAT-BUN (test code = BUNP) 12 MG/DL 8-28 BEDSIDE CREATININE (test code = 1.1 MG/DL 0.6-1.2 CREATBED) GLOMERULAR FILTRATION RATE POC 70 56-130 (test code = GFRBED) CBC W/AUTO [id number] 18:03:00 Test Item Value Reference Range Comments WHITE BLOOD CELL (test code = WBC) 10.1 K/mm3 4.1-12.1 RED BLOOD CELL (test code = RBC) 3.69 M/mm3 3.8-5.5 HEMOGLOBIN (test code = HGB) 10.9 G/DL 10.6-15.8 HEMATOCRIT (test code = HCT) 33.3 % 31.8-47.4 MEAN CELL VOLUME (test code = MCV) 90.2 fL 80.1-101.1 MEAN CELL HGB (test code = MCH) 29.5 pg 25.3-35.3 MEAN CELL HGB CONCETRATION (test code = MCHC) 32.7 G/DL 32 .7-35.1 RED CELL DISTRIBUTION WIDTH (test code = RDW) 13.8 % 12 .2-16.4 RED CELL DISTRIBUTION WIDTH (test code = 45.8 fL 35.1-43 .9 RDW-SD) PLATELET COUNT (test code = PLT) 370 K/mm3 155-337 MEAN PLATELET VOLUME (test code = MPV) 10.2 fL 7.6-10.4 GRANULOCYTE % (test code = GR%) 64.3 % 37.8-82.6 IMMATURE GRANULOCYTE % (test code = IG%) 0.5 % 0.0-2.0 LYMPHOCYTE % (test code = LY%) 26.5 % 14.1-45.4 MONOCYTE % (test code = MO%) 5.9 % 2.5-11.7 EOSINOPHIL % (test code = EO%) 2.1 % 0.0-6.2 BASOPHIL % (test code = BA%) 0.7 % 0.0-2.6 NUCLEATED RBC % (test code = NRBC%) 0.0 /100WBC% 0.0-1.0 GRANULOCYTE # (test code = GR#) 6.49 k/mm3 2.0-13.7 IMMATURE GRANULOCYTE # (test code = IG#) 0.05 K/mm3 0.00-0. 03 LYMPHOCYTE # (test code = LY#) 2.67 K/mm3 0.6-3.8 MONOCYTE # (test code = MO#) 0.59 K/mm3 0.11-0.59 EOSINOPHIL # (test code = EO#) 0.21 K/mm3 0.0-0.4 BASOPHIL # (test code = BA#) 0.07 K/mm3 0.0-0.1 NUCLEATED RBC # (test code = NRBC#) 0.00 K/mm3 0.00-0.05 B-TYPE NATRIURETIC FACTOR (BNP)2017-04-16 16:37:00 Test Item Value Reference Range Comments B-TYPE NATRIURETIC PEPTIDE (BEAKER) (test code = 497 pg/mL 0-100 700) [id number] 15:20:00 Test Item Value Reference Range Comments MAGNESIUM (BEAKER) (test code = 627) 1.8 mg/dL 1.6-2.6 BASIC METABOLIC [id number] 15:20:00 Test Item Value Reference Range Comments SODIUM (BEAKER) (test 137 meq/L 136-145 code = 381) POTASSIUM (BEAKER) (test 4.0 meq/L 3.5-5.1 code = 379) CHLORIDE (BEAKER) (test 101 meq/L 98-107 code = 382) CO2 (BEAKER) (test code = 28 meq/L 22-29 355) BLOOD UREA NITROGEN 15 mg/dL 7-21 (BEAKER) (test code = 354) CREATININE (BEAKER) (test 1.08 mg/dL 0.57-1.25 code = 358) GLUCOSE RANDOM (BEAKER) 81 mg/dL 70-105 (test code = 652) CALCIUM (BEAKER) (test 9.7 mg/dL 8.4-10.2 code = 697) EGFR (BEAKER) (test code 72 mL/min/1.73 sq m EST IMATED GFR IS NOT = 1092) ACCURATE CREA TININE CLEARANCE IN PRE DICTING GLOMERULAR FILTR ATION RATE. ESTIMATED GFR IS NOT APPLICABLE F OR DIALYSIS PATIENT S. TROPONIN [id number] 04:40:00 Test Item Value Reference Range Comments TROPONIN I (BEAKER) (test code = 397) 3.39 ng/mL 0.00-0.03 Troponin I (TnI) levels [...] failure, acidosis, acute neurological disease, and persistent tachyarrhythmia.[id number] 04:23:00 Test Item Value Reference Range Comments MAGNESIUM (BEAKER) (test code = 627) 2.2 mg/dL 1.6-2.6 BASIC METABOLIC [id number] 04:23:00 Test Item Value Reference Range Comments SODIUM (BEAKER) (test 138 meq/L 136-145 code = 381) POTASSIUM (BEAKER) (test 3.7 meq/L 3.5-5.1 code = 379) CHLORIDE (BEAKER) (test 105 meq/L 98-107 code = 382) CO2 (BEAKER) (test code = 21 meq/L 22-29 355) BLOOD UREA NITROGEN 35 mg/dL 7-21 (BEAKER) (test code = 354) CREATININE (BEAKER) (test 1.11 mg/dL 0.57-1.25 code = 358) GLUCOSE RANDOM (BEAKER) 86 mg/dL 70-105 (test code = 652) CALCIUM (BEAKER) (test 9.3 mg/dL 8.4-10.2 code = 697) EGFR (BEAKER) (test code 70 mL/min/1.73 sq m EST IMATED GFR IS NOT = 1092) ACCURATE CREA TININE CLEARANCE IN PRE DICTING GLOMERULAR FILTR ATION RATE. ESTIMATED GFR IS NOT APPLICABLE F OR DIALYSIS PATIENT S. CBC (HEMOGRAM ONLY)2017-04-07 04:00:00 Test Item Value Reference Range Comments WHITE BLOOD CELL COUNT (BEAKER) (test code = 12.6 K/ L 3.5 -10.5 775) RED BLOOD CELL COUNT (BEAKER) (test code = 761) 3.85 M/ L 4.63-6.08 HEMOGLOBIN (BEAKER) (test code = 410) 10.9 GM/DL 13.7-17.5 HEMATOCRIT (BEAKER) (test code = 411) 34.2 % 40.1-51.0 MEAN CORPUSCULAR VOLUME (BEAKER) (test code = 88.8 fL 79 .0-92.2 753) MEAN CORPUSCULAR HEMOGLOBIN (BEAKER) (test code 28.3 pg 25.7-32.2 = 751) MEAN CORPUSCULAR HEMOGLOBIN CONC (BEAKER) (test 31.9 GM/DL 32.3-36.5 code = 752) RED CELL DISTRIBUTION WIDTH (BEAKER) (test code 15.5 % 11.6-14.4 = 412) PLATELET COUNT (BEAKER) (test code = 756) 276 K/CU MM 150-45 0 MEAN PLATELET VOLUME (BEAKER) (test code = 754) 10.9 fL 9.4-12.4 NUCLEATED RED BLOOD CELLS (BEAKER) (test code = 0 /100 WBC 0-0 413) TROPONIN [id number] 11:34:00 Test Item Value Reference Range Comments TROPONIN I (BEAKER) (test code = 397) 4.01 ng/mL 0.00-0.03 Troponin I (TnI) levels [...] failure, acidosis, acute neurological disease, and persistent tachyarrhythmia.[id number] 06:25:00 Test Item Value Reference Range Comments MAGNESIUM (BEAKER) (test code = 627) 2.0 mg/dL 1.6-2.6 BASIC METABOLIC [id number] 06:25:00 Test Item Value Reference Range Comments SODIUM (BEAKER) (test 139 meq/L 136-145 code = 381) POTASSIUM (BEAKER) (test 3.7 meq/L 3.5-5.1 code = 379) CHLORIDE (BEAKER) (test 106 meq/L 98-107 code = 382) CO2 (BEAKER) (test code = 21 meq/L 22-29 355) BLOOD UREA NITROGEN 22 mg/dL 7-21 (BEAKER) (test code = 354) CREATININE (BEAKER) (test 0.91 mg/dL 0.57-1.25 code = 358) GLUCOSE RANDOM (BEAKER) 81 mg/dL 70-105 (test code = 652) CALCIUM (BEAKER) (test 9.5 mg/dL 8.4-10.2 code = 697) EGFR (BEAKER) (test code 88 mL/min/1.73 sq m EST IMATED GFR IS NOT = 1092) ACCURATE CREA TININE CLEARANCE IN PRE DICTING GLOMERULAR FILTR ATION RATE. ESTIMATED GFR IS NOT APPLICABLE F OR DIALYSIS PATIENT S. CBC (HEMOGRAM ONLY)2017-04-06 05:46:00 Test Item Value Reference Range Comments WHITE BLOOD CELL COUNT (BEAKER) (test code = 15.7 K/ L 3.5 -10.5 775) RED BLOOD CELL COUNT (BEAKER) (test code = 761) 4.09 M/ L 4.63-6.08 HEMOGLOBIN (BEAKER) (test code = 410) 11.6 GM/DL 13.7-17.5 HEMATOCRIT (BEAKER) (test code = 411) 37.0 % 40.1-51.0 MEAN CORPUSCULAR VOLUME (BEAKER) (test code = 90.5 fL 79 .0-92.2 753) MEAN CORPUSCULAR HEMOGLOBIN (BEAKER) (test code 28.4 pg 25.7-32.2 = 751) MEAN CORPUSCULAR HEMOGLOBIN CONC (BEAKER) (test 31.4 GM/DL 32.3-36.5 code = 752) RED CELL DISTRIBUTION WIDTH (BEAKER) (test code 15.7 % 11.6-14.4 = 412) PLATELET COUNT (BEAKER) (test code = 756) 290 K/CU MM 150-45 0 MEAN PLATELET VOLUME (BEAKER) (test code = 754) 11.2 fL 9.4-12.4 NUCLEATED RED BLOOD CELLS (BEAKER) (test code = 0 /100 WBC 0-0 413) [id number] 07:49:00 Test Item Value Reference Range Comments MAGNESIUM (BEAKER) (test code = 627) 2.0 mg/dL 1.6-2.6 TROPONIN [id number] 05:48:00 Test Item Value Reference Range Comments TROPONIN I (BEAKER) (test code = 397) 8.11 ng/mL 0.00-0.03 Troponin I (TnI) levels [...] acute neurological disease, and persistent tachyarrhythmia.COMPREHENSIVE METABOLIC [id number] 05:42:00 Test Item Value Reference Range Comments TOTAL PROTEIN (BEAKER) 6.9 gm/dL 6.0-8.3 (test code = 770) ALBUMIN (BEAKER) (test 3.5 g/dL 3.5-5.0 code = 1145) ALKALINE PHOSPHATASE 118 U/L 40-150 (BEAKER) (test code = 346) BILIRUBIN TOTAL (BEAKER) 0.8 mg/dL 0.2-1.2 (test code = 377) SODIUM (BEAKER) (test code 138 meq/L 136-145 = 381) POTASSIUM (BEAKER) (test 3.9 meq/L 3.5-5.1 code = 379) CHLORIDE (BEAKER) (test 107 meq/L 98-107 code = 382) CO2 (BEAKER) (test code = 23 meq/L 22-29 355) BLOOD UREA NITROGEN 17 mg/dL 7-21 (BEAKER) (test code = 354) CREATININE (BEAKER) (test 0.80 mg/dL 0.57-1.25 code = 358) GLUCOSE RANDOM (BEAKER) 108 mg/dL 70-105 (test code = 652) CALCIUM (BEAKER) (test 8.8 mg/dL 8.4-10.2 code = 697) AST (SGOT) (BEAKER) (test 45 U/L 5-34 code = 353) ALT (SGPT) (BEAKER) (test 17 U/L 6-55 code = 347) EGFR (BEAKER) (test code = 102 mL/min/1.73 sq ES TIMATED GFR IS NOT 1092) m ACCURATE CREA TININE CLEARANCE IN PRE DICTING GLOMERULAR FILTR ATION RATE. ESTIMATED GFR IS NOT APPLICABLE F OR DIALYSIS PATIENT S. RAD, CHEST, 1 VIEW, NON [id number] 05:07:00Reason for exam:->IABPFINAL REPORT RAD, CHEST, 1 [...] MDReport Verified Date/Time: 04/05/2017 05:07:01 Reading Location: [address] Body Reading Room [id number] 04:15:00 Test Item Value Reference Range Comments FERRITIN (BEAKER) (test code = 361) 141 ng/mL 5-275 CREATINE KINASE (CK), TOTAL AND [id number] 04:04:00 Test Item Value Reference Range Comments CREATINE KINASE TOTAL (BEAKER) (test code = 380) 228 U/L 29-200 CREATINE KINASE-MB (BEAKER) (test code = 750) 18.7 ng/mL 0. 0-6.6 CREATINE KINASE-MB INDEX (BEAKER) (test code = 8.2 % 395) CK-MB Reference Range:<6.7 Normal6.7-10.0 Borderline>10.0 AbnormalIRON, TIBC, % SAT. (WITHOUT FERRITIN)2017-04-05 04:01:00 Test Item Value Reference Range Comments IRON (BEAKER) (test code = 547) 16 ug/dL 40-160 TOTAL IRON BINDING CAPACITY (BEAKER) (test code = 223 ug/dL 250-450 769) IRON % SATURATION (2) (BEAKER) (test code = 2590) 7 % 20-55 [id number] 03:56:00 Test Item Value Reference Range Comments MAGNESIUM (BEAKER) (test code = 627) 1.6 mg/dL 1.6-2.6 CBC W/PLT COUNT & AUTO [id number] 03:38:00 Test Item Value Reference Range Comments WHITE BLOOD CELL COUNT (BEAKER) (test code = 13.4 K/ L 3.5 -10.5 775) RED BLOOD CELL COUNT (BEAKER) (test code = 761) 3.33 M/ L 4.63-6.08 HEMOGLOBIN (BEAKER) (test code = 410) 9.5 GM/DL 13.7-17.5 HEMATOCRIT (BEAKER) (test code = 411) 30.1 % 40.1-51.0 MEAN CORPUSCULAR VOLUME (BEAKER) (test code = 90.4 fL 79 .0-92.2 753) MEAN CORPUSCULAR HEMOGLOBIN (BEAKER) (test code 28.5 pg 25.7-32.2 = 751) MEAN CORPUSCULAR HEMOGLOBIN CONC (BEAKER) (test 31.6 GM/DL 32.3-36.5 code = 752) RED CELL DISTRIBUTION WIDTH (BEAKER) (test code 15.7 % 11.6-14.4 = 412) PLATELET COUNT (BEAKER) (test code = 756) 252 K/CU MM 150-45 0 MEAN PLATELET VOLUME (BEAKER) (test code = 754) 11.3 fL 9.4-12.4 NUCLEATED RED BLOOD CELLS (BEAKER) (test code = 0 /100 WBC 0-0 413) NEUTROPHILS RELATIVE PERCENT (BEAKER) (test code 86 % = 429) LYMPHOCYTES RELATIVE PERCENT (BEAKER) (test code 8 % = 430) MONOCYTES RELATIVE PERCENT (BEAKER) (test code = 5 % 431) EOSINOPHILS RELATIVE PERCENT (BEAKER) (test code 0 % = 432) BASOPHILS RELATIVE PERCENT (BEAKER) (test code = 0 % 437) NEUTROPHILS ABSOLUTE COUNT (BEAKER) (test code = 11.52 K/ L 1.78-5.38 670) LYMPHOCYTES ABSOLUTE COUNT (BEAKER) (test code = 1.07 K/ L 1.32-3.57 414) MONOCYTES ABSOLUTE COUNT (BEAKER) (test code = 0.63 K/ L 0 .30-0.82 415) EOSINOPHILS ABSOLUTE COUNT (BEAKER) (test code = 0.06 K/ L 0.04-0.54 416) BASOPHILS ABSOLUTE COUNT (BEAKER) (test code = 0.06 K/ L 0 .01-0.08 417) IMMATURE GRANULOCYTES-RELATIVE PERCENT (BEAKER) 0 % 0-1 (test code = 2801) TROPONIN [id number] 19:07:00 Test Item Value Reference Range Comments TROPONIN I (BEAKER) (test code = 397) 11.89 ng/mL 0.00-0.03 Troponin I (TnI) levels [...] and persistent tachyarrhythmia.CREATINE KINASE (CK), TOTAL AND MB 2017-04-04 19:06:00 Test Item Value Reference Range Comments CREATINE KINASE TOTAL (BEAKER) (test code = 380) 485 U/L 29-200 CREATINE KINASE-MB (BEAKER) (test code = 750) 59.5 ng/mL 0. 0-6.6 CREATINE KINASE-MB INDEX (BEAKER) (test code = 12.3 % 395) CK-MB Reference Range:<6.7 Normal6.7-10.0 Borderline>10.0 AbnormalHEMOGLOBIN [id number] 17:50:00 Test Item Value Reference Range Comments HEMOGLOBIN A1C (BEAKER) (test code = 368) 5.3 % 4.3-6. 1 RAD, CHEST, 1 VIEW, NON [id number] 17:49:00Reason for exam:->eval for PVCShould this be performed at the bedside?->YesFINAL REPORT TECHNIQUE: Frontal chest radiograph dated 04/04/2017. CLINICAL H ISTORY: Eval for PVC COMPARISON STUDY: None IMPRESSION:There are bilateral, airspace opacities in a distribution typical of pulmonary edema. Differential also includes pneumonia. A radiodense marker projects over the aortic arch at the level of T5-T6. Lungs are clear. No pleural effusion or pneumothorax. Cardiomediastinal silhouette is normal in size. No fracture. Signed: Conchita Jimenez MDReportVerified Date/Time: 04/04/2017 17:49:35 Reading Location: [facility] Radiology Reading Room TROPONIN [id number] 11:58:00 Test Item Value Reference Range Comments TROPONIN I (BEAKER) (test code = 397) 4.95 ng/mL 0.00-0.03 Troponin I (TnI) levels [...] and persistent tachyarrhythmia.CREATINE KINASE (CK), TOTAL AND MB 2017-04-04 11:49:00 Test Item Value Reference Range Comments CREATINE KINASE TOTAL (BEAKER) (test code = 380) 332 U/L 29-200 CREATINE KINASE-MB (BEAKER) (test code = 750) 40.7 ng/mL 0. 0-6.6 CREATINE KINASE-MB INDEX (BEAKER) (test code = 12.3 % 395) CK-MB Reference Range:<6.7 Normal6.7-10.0 Borderline>10.0 AbnormalCBC W/PLT COUNT & AUTO [id number] 11:49:00 Test Item Value Reference Range Comments WHITE BLOOD CELL COUNT (BEAKER) (test code = 12.1 K/ L 3.5 -10.5 775) RED BLOOD CELL COUNT (BEAKER) (test code = 761) 3.67 M/ L 4.63-6.08 HEMOGLOBIN (BEAKER) (test code = 410) 10.5 GM/DL 13.7-17.5 HEMATOCRIT (BEAKER) (test code = 411) 33.8 % 40.1-51.0 MEAN CORPUSCULAR VOLUME (BEAKER) (test code = 92.1 fL 79 .0-92.2 753) MEAN CORPUSCULAR HEMOGLOBIN (BEAKER) (test code 28.6 pg 25.7-32.2 = 751) MEAN CORPUSCULAR HEMOGLOBIN CONC (BEAKER) (test 31.1 GM/DL 32.3-36.5 code = 752) RED CELL DISTRIBUTION WIDTH (BEAKER) (test code 15.7 % 11.6-14.4 = 412) PLATELET COUNT (BEAKER) (test code = 756) 274 K/CU MM 150-45 0 MEAN PLATELET VOLUME (BEAKER) (test code = 754) 11.3 fL 9.4-12.4 NUCLEATED RED BLOOD CELLS (BEAKER) (test code = 0 /100 WBC 0-0 413) NEUTROPHILS RELATIVE PERCENT (BEAKER) (test code 89 % = 429) LYMPHOCYTES RELATIVE PERCENT (BEAKER) (test code 8 % = 430) MONOCYTES RELATIVE PERCENT (BEAKER) (test code = 2 % 431) EOSINOPHILS RELATIVE PERCENT (BEAKER) (test code 0 % = 432) BASOPHILS RELATIVE PERCENT (BEAKER) (test code = 0 % 437) NEUTROPHILS ABSOLUTE COUNT (BEAKER) (test code = 10.81 K/ L 1.78-5.38 670) LYMPHOCYTES ABSOLUTE COUNT (BEAKER) (test code = 0.92 K/ L 1.32-3.57 414) MONOCYTES ABSOLUTE COUNT (BEAKER) (test code = 0.24 K/ L 0 .30-0.82 415) EOSINOPHILS ABSOLUTE COUNT (BEAKER) (test code = 0.02 K/ L 0.04-0.54 416) BASOPHILS ABSOLUTE COUNT (BEAKER) (test code = 0.04 K/ L 0 .01-0.08 417) IMMATURE GRANULOCYTES-RELATIVE PERCENT (BEAKER) 1 % 0-1 (test code = 2801) B-TYPE NATRIURETIC FACTOR (BNP)2017-04-04 11:48:00 Test Item Value Reference Range Comments B-TYPE NATRIURETIC PEPTIDE (BEAKER) (test code = 741 pg/mL 0-100 700) [id number] 11:42:00 Test Item Value Reference Range Comments PHOSPHORUS (BEAKER) (test code = 604) 2.2 mg/dL 2.3-4.7 [id number] 11:42:00 Test Item Value Reference Range Comments MAGNESIUM (BEAKER) (test code = 627) 2.1 mg/dL 1.6-2.6 COMPREHENSIVE METABOLIC [id number] 11:42:00 Test Item Value Reference Range Comments TOTAL PROTEIN (BEAKER) 7.4 gm/dL 6.0-8.3 (test code = 770) ALBUMIN (BEAKER) (test 3.7 g/dL 3.5-5.0 code = 1145) ALKALINE PHOSPHATASE 120 U/L 40-150 (BEAKER) (test code = 346) BILIRUBIN TOTAL (BEAKER) 0.4 mg/dL 0.2-1.2 (test code = 377) SODIUM (BEAKER) (test code 137 meq/L 136-145 = 381) POTASSIUM (BEAKER) (test 4.7 meq/L 3.5-5.1 code = 379) CHLORIDE (BEAKER) (test 108 meq/L 98-107 code = 382) CO2 (BEAKER) (test code = 22 meq/L 22-29 355) BLOOD UREA NITROGEN 17 mg/dL 7-21 (BEAKER) (test code = 354) CREATININE (BEAKER) (test 0.99 mg/dL 0.57-1.25 code = 358) GLUCOSE RANDOM (BEAKER) 121 mg/dL 70-105 (test code = 652) CALCIUM (BEAKER) (test 9.1 mg/dL 8.4-10.2 code = 697) AST (SGOT) (BEAKER) (test 35 U/L 5-34 code = 353) ALT (SGPT) (BEAKER) (test 14 U/L 6-55 code = 347) EGFR (BEAKER) (test code = 80 mL/min/1.73 sq m E STIMATED GFR IS NOT 1092) ACCURATE CREA TININE CLEARANCE IN PRE DICTING GLOMERULAR FILTR ATION RATE. ESTIMATED GFR IS NOT APPLICABLE F OR DIALYSIS PATIENT S. LIPID [id number] 11:42:00 Test Item Value Reference Range Comments TRIGLYCERIDES (BEAKER) (test code = 540) 59 mg/dL CHOLESTEROL (BEAKER) (test code = 631) 215 mg/dL HDL CHOLESTEROL (BEAKER) (test code = 976) 30 mg/dL LDL CHOLESTEROL CALCULATED (BEAKER) (test code = 173 mg/dL 633) Triglyceride Reference Range: Low Risk <150 Borderline 150-199 High Risk 200-499 Very High Risk >=500Cholesterol Reference Range: Low Risk <200 Borderline 200-239 High Risk >240HDL Cholesterol Reference Range: Low Risk >=60 High Risk <40LDL Cholesterol Reference Range: Optimal <100 Near Optimal 100-129 Borderline 130-159 High 160-189 Very High [id number] 11:31:00 Test Item Value Reference Range Comments PARTIAL THROMBOPLASTIN TIME (BEAKER) (test 165.8 seconds 22.5- 36.0 code = 760) PROTHROMBIN [id number] 11:25:00 Test Item Value Reference Range Comments PROTIME (BEAKER) (test code = 759) 16.0 seconds 11.7-14.7 INR (BEAKER) (test code = 370) 1.3 <=5.9 RECOMMENDED COUMADIN/WARFARIN INR THERAPY RANGESSTANDARD DOSE: 2.0 - 3.0 Includes: PROPHYLAXIS forvenous thrombosis, systemic embolization; TREATMENT for venous thrombosis and/or pulmonary embolus.HIGH RISK: Target INR is 2.5-3.5 for patients with mechanical heart valves.[id number] 10:07:00 Test Item Value Reference Range Comments ACTIVATED CLOTTING TIME 197 sec TESTED A T [facility] [address] ([address]) (test code = 441) [place] [address] [id number] 10:07:00 Test Item Value Reference Range Comments ACTIVATED CLOTTING TIME 202 sec TESTED A T [facility] [address] (BEAKER) (test code = 441) [place] [address]
[2019-09-10 12:49] LABS: Absolute Lymphocytes (CBC) 1.7 K/uL (0.7-4.9); Basophils % 1.2 % (0-1.3); Hematocrit 39.7 % (39.6-49.0); Lymphocytes % 19.3 % (15.3-44.8); MPV 10.3 fL (7.6-11.3); RBC Red Blood Cell Count 4.62 M/uL (4.33-5.43)
[2019-09-10 12:50] LABS: Protime INR 1.58
--- NOTE | 2019-09-10 12:59 | RAD REPORT ---
EXAM DESCRIPTION: RAD - Chest Single View - 09/10/2019 12:32 pm CLINICAL HISTORY: DYSPNEA COMPARISON: May 2019 TECHNIQUE: AP portable chest image was obtained 09/10/2019 12:32 pm . FINDINGS: Lungs are clear. Interstitial pattern matches comparison. Heart and vasculature are normal . No measurable pleural effusion. Small pleural effusions in the posterior gutters can be obscured on portable imaging. There is no pneumothorax. No acute bony abnormality seen. No acute aortic findings suspected. IMPRESSION: No acute cardiopulmonary process.
[2019-09-10 13:08] LABS: ALT/SGPT 39 U/L (12-78); AST/SGOT 29 U/L (15-37); Alkaline Phosphatase 175 U/L (45-117); BUN Blood Urea Nitrogen 16 mg/dL (7-18); Bicarbonate 24 mmol/L (21-32); Bilirubin Direct 0.8 mg/dL (0-0.2); Bilirubin Total 1.8 mg/dL (0.2-1.0); Glucose Level 106 mg/dL (74-106); NT PRO-BNP 7416 pg/mL (<125); Potassium 4.1 mmol/L (3.5-5.1); Protein, Total 6.8 g/dL (6.4-8.2); Sodium Level 139 mmol/L (136-145); Troponin (Emerg Dept Use Only) < 0.02 ng/mL (0.0-0.045)
[2019-09-10] MEDS ORDERED: FUROSEMIDE 100 MG/10 ML VIAL IV ONE (13:50)
--- NOTE | 2019-09-10 13:53 | RAD REPORT ---
EXAM DESCRIPTION: CT - Abdomen Pelvis W Contrast - 09/10/2019 1:40 pm CLINICAL HISTORY: ABD PAIN COMPARISON: No comparisons TECHNIQUE: Biphasic, helical CT imaging of the abdomen and pelvis was performed following 100 ml non -ionic IV contrast. No oral contrast. All CT scans are performed using dose optimization technique as appropriate and may include automated exposure control or mA/KV adjustment according to patient size. FINDINGS: Moderate bilateral pleural effusions present partially imaged. Heart size is upper normal without pericardial effusion. The liver, spleen, and pancreas show no suspicious findings. Gallbladder and biliary tree are also wi thout suspicious finding. Gallstones can be occult on CT imaging. Renal function is symmetric with delayed. Areas of cortical thinning are present. No pyelonephritis o r acute parenchymal process. Patient has a large 2.5 x 1.7 x 1.0 staghorn calculus in the central pel vis extending into the lower pole calices. No other calculi seen. No adrenal abnormalities. Bladder o nly partially filled. No bladder calculi seen. No dilated bowel loops or bowel wall thickening. No free air or pneumatosis. Mild to moderate volume of ascites present. There is fluid retention in the subcutaneous fatty tissues. No mass or bulky ly mphadenopathy. A small right inguinal hernia present with only fat. No acute bone finding. IMPRESSION: Ascites, subcutaneous fatty tissue fluid retention and moderate bilateral pleural effusi ons are present. Renal function is delayed. Findings all of support CHF/ volume overload. Liver attenuation is somewhat mottled which could indicate hepatic parenchymal disease. A focal liver lesion is not identified. A 2.5 centimeter staghorn calculus is present in the left renal pelvis extending into the lower pole calices.
--- NOTE | 2019-09-10 15:35 | EDPHYS ---
Physician Documentation [facility] Name: Eddie Isaacs Age: 54 yrs Sex: Male : 1965 Arrival Date: 09/10/2019 Time: 11:50 Bed 4 Private MD: ED Physician Emir Teague HPI: 09/09 15:40 This 54 yrs old Male presents to ER via Wheelchair with complaints of jr8 Breathing Difficulty, Leg Swelling. 15:40 The patient has shortness of breath at rest. Onset: The symptoms/episode began/occurred jr8 gradually, 2 week(s) ago. Duration: The symptoms are continuous. The patient's shortness of breath is aggravated by talking, walking. Associated signs and symptoms: Pertinent positives: lower extremity edema. Severity of symptoms: At their worst the symptoms were mild in the emergency department the symptoms are unchanged. It is unknown whether or not the patient has had similar symptoms in the past. The patient has not recently seen a physician. 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 - Social history:: Smoking status: Patient reports the use of cigarette tobacco products. ROS: 15:40 Eyes: Negative for injury, pain, redness, and discharge, ENT: Negative for injury, jr8 pain, and discharge, Neck: Negative for injury, pain, and swelling, Abdomen/GI: Negative for abdominal pain, nausea, vomiting, diarrhea, and constipation, Back: Negative for injury and pain, MS/Extremity: Negative for injury and deformity, Skin: Negative for injury, rash, and discoloration, Neuro: Negative for headache, weakness, numbness, tingling, and seizure. 15:40 Cardiovascular: Positive for edema. 15:40 Respiratory: Positive for dyspnea on exertion, shortness of breath. Exam: 15:40 Eyes: Pupils equal round and reactive to light, extra-ocular motions intact. Lids and jr8 lashes normal. Conjunctiva and sclera are non-icteric and not injected. Cornea within normal limits. Periorbital areas with no swelling, redness, or edema. ENT: Nares patent. No nasal discharge, no septal abnormalities noted. Tympanic membranes are normal and external auditory canals are clear. Oropharynx with no redness, swelling, or masses, exudates, or evidence of obstruction, uvula midline. Mucous membranes moist. Neck: Trachea midline, no thyromegaly or masses palpated, and no cervical lymphadenopathy. Supple, full range of motion without nuchal rigidity, or vertebral point tenderness. No Meningismus. Respiratory: Lungs have equal breath sounds bilaterally, clear to auscultation and percussion. No rales, rhonchi or wheezes noted. No increased work of breathing, no retractions or nasal flaring. Abdomen/GI: Soft, non-tender, with normal bowel sounds. No distension or tympany. No guarding or rebound. No evidence of tenderness throughout. Back: No spinal tenderness. No costovertebral tenderness. Full range of motion. Skin: Warm, dry with normal turgor. Normal color with no rashes, no lesions, and no evidence of cellulitis. MS/ Extremity: Pulses equal, no cyanosis. Neurovascular intact. Full, normal range of motion. Neuro: Awake and alert, GCS 15, oriented to person, place, time, and situation. Cranial nerves II-XII grossly intact. Motor strength 5/5 in all extremities. Sensory grossly intact. Cerebellar exam normal. Normal gait. 15:40 Cardiovascular: Rate: normal, Rhythm: regular, Pulses: Pulses are 2+ in right radial artery and left radial artery. Heart sounds: normal, normal S1and S2, no S3 or S4, no murmur, no rub, no gallop, Edema: 2+ edema to level of left midcalf, left ankle, left foot, right midcalf, right ankle and right foot, JVD: is not appreciated. Vital Signs: 12:11 BP 122 / 99; Pulse 100; Resp 16 S; Temp 98.2; Pulse Ox 98% on R/A; Weight 77.11 kg; iw Height 5 ft. 11 in. (180.34 cm); Pain 0/10; 13:02 BP 129 / 89; Pulse 97; Resp 17; Pulse Ox 100% ; bp 14:38 BP 134 / 93; Pulse 87; Resp 16; Pulse Ox 100% ; bp 16:05 BP 108 / 95; Pulse 92; Resp 16; Temp 98; Pulse Ox 94% ; bp 12:11 Body Mass Index 23.71 (77.11 kg, 180.34 cm) iw MDM: 12:08 Patient medically screened. jr8 15:34 Data reviewed: vital signs, nurses notes, lab test result(s), EKG, radiologic studies, jr8 CT scan, plain films. Data interpreted: Pulse oximetry: on room air is 100 %. Interpretation: normal. Counseling: I had a detailed discussion with the patient and/or guardian regarding: the historical points, exam findings, and any diagnostic results supporting the discharge/admit diagnosis, lab results, radiology results, the need for outpatient follow up, a actuarial technician, a family practitioner, to return to the emergency department if symptoms worsen or persist or if there are any questions or concerns that arise at home. Response to treatment: the patient's symptoms have markedly improved after treatment. 15:40 ED course: Discussed with patient that his swelling is most likely secondary to heart. jr8 Feeling better after being diuresed. Will send shahida on lasix and to have f/u with Cardiology. If worse to come back. Patient good with this plan . 09/09 12:08 Order name: Basic Metabolic Panel; Complete Time: 13:16 09/09 12:08 Order name: CBC with Diff; Complete Time: 13:16 09/09 12:08 Order name: LFT's; Complete Time: 13:16 09/09 12:08 Order name: Magnesium; Complete Time: 13:16 09/09 12:08 Order name: NT PRO-BNP; Complete Time: 13:16 09/09 12:08 Order name: PT-INR; Complete Time: 13:16 09/09 12:08 Order name: Troponin (emerg Dept Use Only); Complete Time: 13:16 09/09 12:08 Order name: XRAY Chest (1 view); Complete Time: 13:16 09/09 12:08 Order name: Cardiac monitoring; Complete Time: 12:14 09/09 12:08 Order name: EKG - Nurse/Tech; Complete Time: 13:02 09/09 12:08 Order name: IV Saline Lock; Complete Time: 13:02 09/09 13:16 Order name: CT Abd/Pelvis - IV Contrast Only; Complete Time: 14:03 09/09 12:08 Order name: Labs collected and sent; Complete Time: 13:02 09/09 12:08 Order name: O2 Per Protocol; Complete Time: 12:13 09/09 12:08 Order name: O2 Sat Monitoring; Complete Time: 12:13 Administered Medications: 13:40 Drug: Lasix 60 mg Route: IVP; Site: right forearm; bp 15:57 Follow up: Response: No adverse reaction bp Disposition: 09/10 01:27 Co-signature as Attending Physician, Emir Teague MD I agree with the assessment and kdr plan of care. Disposition: 09/10/19 15:34 Discharged to Home. Impression: Heart failure. - Condition is Stable. - Discharge Instructions: Heart Failure. - Prescriptions for Lasix 20 mg Oral Tablet - take 1 tablet by ORAL route 2 times per day; 60 tablet. Potassium Chloride 10 mEq Oral Capsule, Sustained Release - take 1 tablet by ORAL route every 12 hours; 60 tablet. - Medication Reconciliation Form, Thank You Letter, Antibiotic Education, Prescription Opioid Use form. - Follow up: Jovany Perry MD; When: 1 - 2 days; Reason: Recheck today's complaints, Continuance of care, Re-evaluation by your physician. - Problem is new. - Symptoms have improved. Signatures: Dispatcher [employer] EDIN Emir Teague MD MD [facility] Alisa Kasper RN RN iw Fly Gonzalez PA PA jr8 Viktor Peng RN RN bp Corrections: (The following items were deleted from the chart) 09/09 16:06 15:34 09/10/2019 15:34 Discharged to Home. Impression: Heart failure. Condition is bp Stable. Forms are Medication Reconciliation Form, Thank You Letter, Antibiotic Education, Prescription Opioid Use. Follow up: Jovany Perry; When: 1 - 2 days; Reason: Recheck today's complaints, Continuance of care, Re-evaluation by your physician. Problem is new. Symptoms have improved. jr8
--- NOTE | 2019-09-10 15:35 | ER ---
Nurse's Notes [facility] Name: Eddie Isaacs Age: 54 yrs Sex: Male : 1965 Arrival Date: 09/10/2019 Time: 11:50 Bed 4 Private MD: Diagnosis: Heart failure Presentation: 09/09 12:11 Chief complaint: Patient states: c/o leg swelling, general weakness, diff breathing X 3 iw weeks, has no energy. Coronavirus screen: Proceed with normal triage. Patient denies a cough. Patient reports shortness of breath or difficulty breathing. Patient denies measured and/or subjective temperature greater than 100.4F prior to today's visit. Patient denies travel on a cruise ship or to a country the [facility] currently lists as an affected area. Patient denies contact with known and/or suspected case of COVID-19. Ebola Screen: Patient negative for fever greater than or equal to 101.5 degrees Fahrenheit, and additional compatible Ebola Virus Disease symptoms Patient denies exposure to infectious person. Patient denies travel to an Ebola-affected area in the 21 days before illness onset. No symptoms or risks identified at this time. Initial Sepsis Screen: Does the patient meet any 2 criteria? No. Patient's initial sepsis screen is negative. Does the patient have a suspected source of infection? No. Patient's initial sepsis screen is negative. Risk Assessment: Do you want to hurt yourself or someone else? Patient reports no desire to harm self or others. Onset of symptoms was August 29, 2019. 12:11 Method Of Arrival: Wheelchair iw 12:11 Acuity: DENICE 3 iw Triage Assessment: 12:15 General: Appears in no apparent distress. comfortable, Behavior is calm, cooperative, bp appropriate for age. Pain: Denies pain. EENT: No deficits noted. Neuro: No deficits noted. Cardiovascular: Rhythm is sinus rhythm. Respiratory: Reports shortness of breath Onset: The symptoms/episode began/occurred at an unknown time. the patient has mild shortness of breath. GI: No signs and/or symptoms were reported involving the gastrointestinal system. : No signs and/or symptoms were reported regarding the genitourinary system. Derm: No deficits noted. Musculoskeletal: Swelling present in right leg and left leg. 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 - Social history:: Smoking status: Patient reports the use of cigarette tobacco products. Screenin:15 Abuse screen: Denies threats or abuse. Denies injuries from another. Nutritional bp screening: No deficits noted. Tuberculosis screening: No symptoms or risk factors identified. Fall Risk None identified. Assessment: 12:15 General: SEE TRIAGE NOTE. Cardiovascular: Rhythm is sinus rhythm. Respiratory: Airway bp is patent Respiratory effort is even, unlabored, Breath sounds are clear bilaterally. 13:02 Reassessment: UNABLE TO OBTAIN PIV, PROVIDER NOTIFIED. VS STABLE ON MONITOR. bp 14:41 Reassessment: ALL CURRENT ORDERS COMPLETE AND RESULTED. VS STABLE ON MONITOR, INITIAL bp LAB RESULTS UNREMARKABLE. Vital Signs: 12:11 BP 122 / 99; Pulse 100; Resp 16 S; Temp 98.2; Pulse Ox 98% on R/A; Weight 77.11 kg; iw Height 5 ft. 11 in. (180.34 cm); Pain 0/10; 13:02 BP 129 / 89; Pulse 97; Resp 17; Pulse Ox 100% ; bp 14:38 BP 134 / 93; Pulse 87; Resp 16; Pulse Ox 100% ; bp 16:05 BP 108 / 95; Pulse 92; Resp 16; Temp 98; Pulse Ox 94% ; bp 12:11 Body Mass Index 23.71 (77.11 kg, 180.34 cm) iw ED Course: 11:50 Patient arrived in ED. ag5 12:07 Fly Gonzalez PA is PHCP. jr8 12:07 Emir Teague MD is Attending Physician. jr8 12:11 Viktor Peng, AKOSUA is Primary Nurse. bp 12:13 Triage completed. iw 12:15 Patient has correct armband on for positive identification. Bed in low position. Call bp light in reach. Side rails up X2. 12:33 XRAY Chest (1 view) In Process Unspecified. EDMS 12:55 Arm band placed on. bp 12:55 Initial lab(s) drawn, by me, sent to lab. Inserted saline lock: 22 gauge in left kj1 antecubital area, using aseptic technique. Blood collected. 13:39 CT Abd/Pelvis - IV Contrast Only In Process Unspecified. EDMS 15:34 Jovany Perry MD is Referral Physician. jr8 15:57 No provider procedures requiring assistance completed. IV discontinued, intact, bp bleeding controlled, No redness/swelling at site. Pressure dressing applied. Administered Medications: 13:40 Drug: Lasix 60 mg Route: IVP; Site: right forearm; bp 15:57 Follow up: Response: No adverse reaction bp Outcome: 15:34 Discharge ordered by . jr8 15:58 Discharged to home ambulatory. bp 15:58 Condition: stable 15:58 Discharge instructions given to patient, Instructed on discharge instructions, medication usage, Demonstrated understanding of instructions, follow-up care, medications, Prescriptions given X 2. 16:06 Patient left the ED. bp Signatures: Dispatcher [employer] EDMS Alisa Kasper RN RN Fly Gandara PA PA jr8 Viktor Peng RN RN Rita Zaidi 5 Dorina Johnson [id number] Corrections: (The following items were deleted from the chart) 14:41 13:02 Pulse 97bpm; Resp 17bpm; Pulse Ox 100%; bp bp
[2019-09-11 05:56] VITALS: BP 108/95; TEMP 98; O2SAT 94
== END 2019-09-10 16:06 | disposition home or self-care (01) ==
LOC: ER 11:49
DX: I50.9 Heart failure, unspecified (principal); R60.9 Edema, unspecified; I10 Essential (primary) hypertension; F34.1 Dysthymic disorder; I25.2 Old myocardial infarction; F17.210 Nicotine dependence, cigarettes, uncomplicated; Z95.818 Presence of other cardiac implants and grafts
CPT/HCPCS: 36415; 71045; 74177; 80048; 80076; 83735; 83880; 84484; 85025; 85610; 96374; 99284; Q9967

== ENCOUNTER 2021-03-19 10:47 | Emergency (ER) | payer OTHER, SELFPAY ==
--- OUTSIDE RECORDS SUMMARY | 2021-03-19 11:09 | XMS REPORT | Continuity of Care Document ---
:[address] [facility] t Address [address] [place] [address] Care Team Providers Name Role Phone FOUND, NOT Primary Care Physician Unavailable AAMIR Attending Clinician Unavailable Collin DE LA CRUZ Attending Clinician Unavailable Arthur BARBER Attending Clinician Unavailable Aamir SIDHU Attending Clinician BOO Attending Clinician Unavailable COLTON Attending Clinician Unavailable MARIA TERESA SOTOMAYOR Attending Clinician Unavailable Maria Teresa Leong Attending Clinician Colton SIDHU Attending Clinician Quique SIDHU Attending Clinician Doctor Unassigned, Name Attending Clinician Unavailable Boo SIDHU Attending Clinician Stephany Aguila MD Attending Clinician Virgilio Rausch MD Attending Clinician Juan J Villagran Attending Clinician Yee SIDHU Attending Clinician YEE Attending Clinician Unavailable Lino SIDHU Attending Clinician Corina SOUTH M Attending Clinician Yevgeniy SIDHU Attending Clinician Jairon Attending Clinician LINO Attending Clinician Unavailable QUIQUE Attending Clinician Unavailable Renato SIDHU, K.HDerrell Attending Clinician NENO Attending Clinician Unavailable DESTINY Attending Clinician Unavailable AAMIR Admitting Clinician Unavailable Aamir SIDHU Admitting Clinician Stephany Aguila MD Admitting Clinician Lino SIDHU Admitting Clinician Yevgeniy SIDHU Admitting Clinician LINO Admitting Clinician Unavailable COLTON Admitting Clinician Unavailable Colton SIDHU Admitting Clinician DESTINY Admitting Clinician Unavailable Payers Payer Name Policy Type Policy Number Effective Date Expiration Date S candice [facility] [place] [facility] [id number] 2020 00:00:00 [place] [id number] 2019 00:00:00 DARS DISABILITY [id number] 2017 DETERMINATION SVCS 00:00:00 Advance Directives Directive Decision Effective Date Termination Date Comments Sour ce Yes N/A [facility] Condition Condition Condition Status Onset Resolution Last Treating Co mments Source Name Details Category Date Date Treatment Clinician Date Heart Heart Disease Active Univers failure failure 11-23 ity of 00:00: [place] 00 Medical Branch Calculus Calculus Disease Active Overview: Un letitia of kidney of kidney 11-11 Formattin i ty of 00:00: g of this [place] 00 note Medical might be Branch different from the original. Added automatic ally from request for surgery [id number] Chest pain Chest pain Disease Active U nivers 6-21 ity of 00:00: [place] 00 Medical Branch Pneumonia Pneumonia Disease Active Uni vers 8-25 ity of 00:00: [place] 00 Medical Branch NSTEMI NSTEMI Disease Active Univers (non-ST (non-ST 8-24 ity of elevated elevated 00:00: [place] myocardial myocardial 00 Me dical infarction infarction Br anch ) ) Acute CHF Acute CHF Disease Active Uni vers 5-13 ity of 00:00: [place] 00 Medical Branch Essential Essential Disease Active Uni vers hypertensi hypertensi 5-13 it y of on on 00:00: [place] 00 Medical Branch 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 00:00: [place] and and 00 Medical diastolic diastolic Bran ch CHF, NYHA CHF, NYHA class 2 class 2 NSVT NSVT Disease Active 2020- Univers (nonsustai (nonsustai 4-18 it y of ivania ivania 00:00: [place] ventricula ventricula 00 Me dical r r Branch tachycardi tachycardi a) a) Acute on Acute on Disease Active 2020- Unive rs chronic chronic 4-18 ity of combined combined 00:00: [place] systolic systolic 00 Medica l and and Branch diastolic diastolic congestive congestive heart heart failure failure CHF CHF Disease Active 2019- Univers (congestiv (congestiv 4-16 it y of e heart e heart 00:00: [place] failure) failure) 00 Medica l Branch Atypical Atypical Disease Active Unive rs chest pain chest pain 4-16 it y of 00:00: [place] 00 Medical Branch Dyslipidem Dyslipidem Disease Active U nivers ia ia 4-16 ity of 00:00: [place] 00 Medical Branch Ischemic Ischemic Disease Active 2020-0 Unive rs cardiomyop cardiomyop 4-16 it y of athy athy 00:00: [place] 00 Medical Branch LEONARD LEONARD Disease Active 2020-0 Univers (dyspnea (dyspnea 4-16 ity of on on 00:00: [place] exertion) exertion) 00 Medi ramses Branch Coronary Coronary Disease Active Unive rs artery artery 4-16 ity of disease disease 00:00: [place] involving involving 00 Medi ramses [place] 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 Coronary Coronary Disease Active 2020 Unive rs artery artery 4-16 ity of disease disease 00:00: [place] involving involving 00 Medi ramses [place] Branch 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 Problem Condition [facility] Allergies, Adverse Reactions, Alerts Allergy Allergy Status Severity Reaction(s) Onset Inactive Treating Comm ents Source Name Type Date Date Clinician No Known DA Active U 2018-05 [facility] Allergie 0-16 [place] [facility] 00:00: [facility] 00 [facility] NO KNOWN Drug Active Univers ALLERGIE Class ity of S [facility] Social History Social Habit Start Date Stop Date Quantity Comments Source Exposure to Not sure University SARS-CoV-2 (event) [facility] Alcohol intake 2020-12-27 2020-12-27 Ex-drinker [facility] 00:00:00 00:00:00 (finding) [facility] Tobacco Comment 2019-10-14 2019-10-14 1PPD X 30 years Univ ersity of 00:00:00 00:00:00 [facility] Cigarettes smoked 2019-08-20 2019-08-20 Univers ity of current (pack per 00:00:00 00:00:00 [facility]) - Reported Branch Tobacco use and 2019-08-20 2019-08-20 Former user Universi ty of exposure 00:00:00 00:00:00 [facility] Branch Education 2019-08-20 2019-08-20 12 University 00:00:00 00:00:00 [place] [facility] History SDOH 2019-08-20 2019-08-20 2 University o f Financial 00:00:00 00:00:00 [place] [facility] History SDSD Food 2019-08-20 2019-08-20 3 Univers ity of Worry 00:00:00 00:00:00 [place] [facility] History SDSD Food 2019-08-20 2019-08-20 3 Univers ity of Scarcity 00:00:00 00:00:00 [facility] Branch History SDSD 2019-08-20 2019-08-20 1 University o f Transport Med 00:00:00 00:00:00 [place] Medic al Branch History SDSD 2019-08-20 2019-08-20 1 University o f Transport Non-Med 00:00:00 00:00:00 [facility] Sex Assigned At [birth year] [facility] 00:00:00 00:00:00 Smoking Status Start Date Stop Date Source Unknown if ever smoked [facility] Current every day smoker 2019-08-20 00:00:00 Uni versity of [facility] Medications Ordered Filled Start Stop Current Ordering Indication Dosage Frequency Signature Comments Components Source Medication Medication Date Date Medication? Clinician (SIG) Name Name HYDROcodone 2020-05- No 1{tbl} 1 tablet, Univers -acetaminop 0-28 10-28 Oral, ity of hen (NORCO) 20:30: 20:01 [place] 10-325 mg [place] :00 dose, On Medica l tablet 1 [place] Branch tablet 03/02/21 at 1530, Routine cephALEXin 2020-05 No 500mg 500 mg, Un letitia (KEFLEX) 0-28 03-02 Oral, ity of capsule 500 20:30: 20:01 [place] 1 [place] mg 00 :00 dose, On Medical [place] Branch 03/02/21 at 1530, ZAY
Re ason for Anti-Infec tive: Documented Infection< br>Documen sb Infection Site: Urine
D uration of Therapy: 10 days ketorolac 2020-05 No 15mg 15 mg, Unive rs (TORADOL) 0-03-02 Slow IV ity of injection 20:15: 19:07 Push, [place] 15 mg 00 :00 ONCE, 1 Medical dose, On Branch [place] 03/02/21 at 1515, ZAY
Fa culty member approving Restricted medication : [place] SOTOMAYOR acetaminoph 2020-05 Yes [id number] 1{tbl} Take 1 Un letitia en-codeine 0-28 tablet by ity of 300-30 mg 00:00: mouth [place] tablet 00 every 4 Medical (four) Branch hours as needed for Pain (scale 4-6). Indication s: acute pain acetaminoph 2020-05 Yes [id number] 1{tbl} Take 1 Un letitia en-codeine 0-28 tablet by ity of 300-30 mg 00:00: mouth [place] tablet 00 every 4 Medical (four) Branch hours as needed for Pain (scale 4-6). Indication s: acute pain acetaminoph 2020-05 Yes [id number] 1{tbl} Take 1 Un letitia en-codeine 0-28 tablet by ity of 300-30 mg 00:00: mouth [place] tablet 00 every 4 Medical (four) Branch hours as needed for Pain (scale 4-6). Indication s: acute pain cephALEXin 2020-05- Yes [id number] 500mg Take 1 Univers (KEFLEX) 0-28 11-08 capsule by ity of 500 mg 00:00: 05:59 mouth 3 [place] capsule 00 :00 (three) Medical times Branch daily for 10 days. cephALEXin 2020-05- Yes [id number] 500mg Take 1 Univers (KEFLEX) 0-28 11-08 capsule by ity of 500 mg 00:00: 05:59 mouth 3 [place] capsule 00 :00 (three) Medical times Branch daily for 10 days. cephALEXin 2020-05- Yes [id number] 500mg Take 1 Univers (KEFLEX) 0-28 11-08 capsule by ity of 500 mg 00:00: 05:59 mouth 3 [place] capsule 00 :00 (three) Medical times Branch daily for 10 days. IBUPROFEN 2020-05 Yes [id number] TAKE ONE Univers 600 mg 0-25 TABLET BY ity of tablet 00:00: MOUTH [place] 00 EVERY 6 Medical HOURS Branch NEEDED FOR PAIN IBUPROFEN 2020-05 Yes [id number] TAKE ONE Univers 600 mg 0-25 TABLET BY ity of tablet 00:00: MOUTH [place] 00 EVERY 6 Medical HOURS Branch NEEDED FOR PAIN IBUPROFEN 2020-05 Yes [id number] TAKE ONE Univers 600 mg 0-25 TABLET BY ity of tablet 00:00: MOUTH [place] 00 EVERY 6 Medical HOURS Branch NEEDED FOR PAIN IBUPROFEN 2020-05 Yes [id number] TAKE ONE Univers 600 mg 0-25 TABLET BY ity of tablet 00:00: MOUTH [place] 00 EVERY 6 Medical HOURS Branch NEEDED FOR PAIN ibuprofen 2020-05 Yes [id number] 600mg Take 1 U nivers 600 mg 0-13 tablet by ity of tablet 00:00: mouth [place] 00 every 6 Medical (six) Branch hours as needed for Pain (scale 4-6). ibuprofen 2020-05- No [id number] 600mg Take 1 Univers 600 mg 0-13 10-25 tablet by ity of tablet 00:00: 00:00 mouth [place] 00 :00 every 6 Medical (six) Branch hours as needed for Pain (scale 4-6). atorvastati Yes [id number] 40mg Take 1 Univers n 40 mg 9-28 tablet by ity of tablet 00:00: mouth at [place] 00 bedtime. Medical Branch enalapril Yes 2.5mg Take 1 Unive rs 2.5 mg 9-28 tablet by ity of tablet 00:00: mouth [place] 00 daily. Medical Branch KCL 20 mEq Yes [id number] 40meq Take 2 Univers tablet 9-28 tablets by ity of 00:00: mouth [place] 00 daily. Medical Branch metoprolol Yes [id number] 25mg Take 1 U nivers succinate 9-28 tablet by ity o f XL 25 mg 24 00:00: mouth 2 [place] as hr tablet 00 (two) Medical times Branch daily. furosemide 0 Yes [id number] 80mg Take 1 U nivers 80 mg 9-28 tablet by ity of tablet 00:00: mouth [place] 00 every Medical morning Branch and evening. spironolact Yes [id number] 50mg Take 1 Univers one 50 mg 9-28 tablet by ity o f tablet 00:00: mouth [place] 00 daily. Medical Branch atorvastati Yes [id number] 40mg Take 1 Univers n 40 mg 9-28 tablet by ity of tablet 00:00: mouth at [place] 00 bedtime. Medical Branch enalapril Yes 2.5mg Take 1 Unive rs 2.5 mg 9-28 tablet by ity of tablet 00:00: mouth [place] 00 daily. Medical Branch KCL 20 mEq 0 Yes [id number] 40meq Take 2 Univers tablet 9-28 tablets by ity of 00:00: mouth [place] 00 daily. Medical Branch metoprolol Yes [id number] 25mg Take 1 U nivers succinate 9-28 tablet by ity o f XL 25 mg 24 00:00: mouth 2 [place] hr tablet 00 (two) Medical times Branch daily. furosemide Yes [id number] 80mg Take 1 U nivers 80 mg 9-28 tablet by ity of tablet 00:00: mouth [place] 00 every Medical morning Branch and evening. spironolact Yes [id number] 50mg Take 1 Univers one 50 mg 9-28 tablet by ity o f tablet 00:00: mouth [place] 00 daily. Medical Branch atorvastati Yes [id number] 40mg Take 1 Univers n 40 mg 9-28 tablet by ity of tablet 00:00: mouth at [place] 00 bedtime. Medical Branch enalapril 0 Yes 2.5mg Take 1 Unive rs 2.5 mg 9-28 tablet by ity of tablet 00:00: mouth [place] 00 daily. Medical Branch KCL 20 mEq Yes [id number] 40meq Take 2 Univers tablet 9-28 tablets by ity of 00:00: mouth [place] 00 daily. Medical Branch metoprolol 0 Yes [id number] 25mg Take 1 U nivers succinate 9-28 tablet by ity o f XL 25 mg 24 00:00: mouth 2 [place] hr tablet 00 (two) Medical times Branch daily. furosemide 2020-0 Yes [id number] 80mg Take 1 U nivers 80 mg 9-28 tablet by ity of tablet 00:00: mouth [place] 00 every Medical morning Branch and evening. spironolact 0 Yes [id number] 50mg Take 1 Univers one 50 mg 9-28 tablet by ity o f tablet 00:00: mouth [place] 00 daily. Medical Branch atorvastati Yes [id number] 40mg Take 1 Univers n 40 mg 9-28 tablet by ity of tablet 00:00: mouth at [place] 00 bedtime. Medical Branch enalapril Yes 2.5mg Take 1 Unive rs 2.5 mg 9-28 tablet by ity of tablet 00:00: mouth [place] 00 daily. Medical Branch KCL 20 mEq 0 Yes [id number] 40meq Take 2 Univers tablet 9-28 tablets by ity of 00:00: mouth [place] 00 daily. Medical Branch metoprolol Yes [id number] 25mg Take 1 U nivers succinate 9-28 tablet by ity o f XL 25 mg 24 00:00: mouth 2 [place] hr tablet 00 (two) Medical times Branch daily. furosemide 0 Yes [id number] 80mg Take 1 U nivers 80 mg 9-28 tablet by ity of tablet 00:00: mouth [place] 00 every Medical morning Branch and evening. spironolact Yes [id number] 50mg Take 1 Univers one 50 mg 9-28 tablet by ity o f tablet 00:00: mouth [place] 00 daily. Medical Branch atorvastati Yes [id number] 40mg Take 1 Univers n 40 mg 9-28 tablet by ity of tablet 00:00: mouth at [place] 00 bedtime. Medical Branch enalapril 0 Yes 2.5mg Take 1 Unive rs 2.5 mg 9-28 tablet by ity of tablet 00:00: mouth [place] 00 daily. Medical Branch KCL 20 mEq 2021-0 Yes [id number] 40meq Take 2 Univers tablet 9-28 tablets by ity of 00:00: mouth [place] 00 daily. Medical Branch metoprolol Yes [id number] 25mg Take 1 U nivers succinate 9-28 tablet by ity o f XL 25 mg 24 00:00: mouth 2 [place] hr tablet 00 (two) Medical times Branch daily. furosemide Yes [id number] 80mg Take 1 U nivers 80 mg 9-28 tablet by ity of tablet 00:00: mouth [place] 00 every Medical morning Branch and evening. spironolact Yes [id number] 50mg Take 1 Univers one 50 mg 9-28 tablet by ity o f tablet 00:00: mouth [place] 00 daily. Medical Branch atorvastati Yes [id number] 40mg Take 1 Univers n 40 mg 9-28 tablet by ity of tablet 00:00: mouth at [place] 00 bedtime. Medical Branch enalapril Yes 2.5mg Take 1 Unive rs 2.5 mg 9-28 tablet by ity of tablet 00:00: mouth [place] 00 daily. Medical Branch KCL 20 mEq 0 Yes [id number] 40meq Take 2 Univers tablet 9-28 tablets by ity of 00:00: mouth [place] 00 daily. Medical Branch metoprolol Yes [id number] 25mg Take 1 U nivers succinate 9-28 tablet by ity o f XL 25 mg 24 00:00: mouth 2 [place] hr tablet 00 (two) Medical times Branch daily. furosemide Yes [id number] 80mg Take 1 U nivers 80 mg 9-28 tablet by ity of tablet 00:00: mouth [place] 00 every Medical morning Branch and evening. spironolact Yes [id number] 50mg Take 1 Univers one 50 mg 9-28 tablet by ity o f tablet 00:00: mouth [place] 00 daily. Medical Branch atorvastati Yes [id number] 40mg Take 1 Univers n 40 mg 9-28 tablet by ity of tablet 00:00: mouth at [place] 00 bedtime. Medical Branch enalapril Yes 2.5mg Take 1 Unive rs 2.5 mg 9-28 tablet by ity of tablet 00:00: mouth [place] 00 daily. Medical Branch KCL 20 mEq 0 Yes [id number] 40meq Take 2 Univers tablet 9-28 tablets by ity of 00:00: mouth [place] 00 daily. Medical Branch metoprolol 0 Yes [id number] 25mg Take 1 U nivers succinate 9-28 tablet by ity o f XL 25 mg 24 00:00: mouth 2 [place] hr tablet 00 (two) Medical times Branch daily. furosemide Yes [id number] 80mg Take 1 U nivers 80 mg 9-28 tablet by ity of tablet 00:00: mouth [place] 00 every Medical morning Branch and evening. spironolact Yes [id number] 50mg Take 1 Univers one 50 mg 9-28 tablet by ity o f tablet 00:00: mouth [place] 00 daily. Medical Branch KCL 20 mEq 0 Yes [id number] 40meq Take 2 Univers tablet 9-15 tablets by ity of 00:00: mouth [place] 00 daily. Medical Branch enalapril Yes 2.5mg Take 1 Unive rs 2.5 mg 9-15 tablet by ity of tablet 00:00: mouth [place] 00 daily. Medical Branch atorvastati Yes [id number] 40mg Take 1 Univers n 40 mg 9-15 tablet by ity of tablet 00:00: mouth at [place] 00 bedtime. Medical Branch furosemide 0 Yes [id number] 80mg Take 1 U nivers 80 mg 9-15 tablet by ity of tablet 00:00: mouth [place] 00 every Medical morning Branch and evening. metoprolol Yes [id number] 25mg Take 1 U nivers succinate 9-15 tablet by ity o f XL 25 mg 24 00:00: mouth 2 [place] hr tablet 00 (two) Medical times Branch daily. spironolact Yes [id number] 50mg Take 1 Univers one 50 mg 9-15 tablet by ity o f tablet 00:00: mouth [place] 00 daily. Medical Branch KCL 20 mEq 0 Yes [id number] 40meq Take 2 Univers tablet 9-15 tablets by ity of 00:00: mouth [place] 00 daily. Medical Branch enalapril Yes 2.5mg Take 1 Unive rs 2.5 mg 9-15 tablet by ity of tablet 00:00: mouth [place] 00 daily. Medical Branch atorvastati Yes [id number] 40mg Take 1 Univers n 40 mg 9-15 tablet by ity of tablet 00:00: mouth at [place] 00 bedtime. Medical Branch furosemide Yes [id number] 80mg Take 1 U nivers 80 mg 9-15 tablet by ity of tablet 00:00: mouth [place] 00 every Medical morning Branch and evening. metoprolol Yes [id number] 25mg Take 1 U nivers succinate 9-15 tablet by ity o f XL 25 mg 24 00:00: mouth 2 [place] hr tablet 00 (two) Medical times Branch daily. spironolact Yes [id number] 50mg Take 1 Univers one 50 mg 9-15 tablet by ity o f tablet 00:00: mouth [place] 00 daily. Medical Branch KCL 20 mEq 2020- No [id number] 40meq Take 2 Univers tablet 01-18 tablets by ity of 00:00: 00:00 mouth [place] 00 :00 daily. Medical Branch enalapril 2020- No 2.5mg Take 1 Univ ers 2.5 mg 01-18 tablet by ity of tablet 00:00: 00:00 mouth [place] 00 :00 daily. Medical Branch atorvastati 2020- No [id number] 40mg Take 1 Univers n 40 mg 01-18 tablet by ity of tablet 00:00: 00:00 mouth at [place] 00 :00 bedtime. Medical Branch furosemide 2020- No [id number] 80mg Take 1 Univers 80 mg 01-18 tablet by ity of tablet 00:00: 00:00 mouth [place] 00 :00 every Medical morning Branch and evening. metoprolol 2020- No [id number] 25mg Take 1 Univers succinate -18 01- tablet by ity of XL 25 mg 24 00:00: 00:00 mouth 2 [place] hr tablet 00 :00 (two) Medical times Branch daily. spironolact 2020- No [id number] 50mg Take 1 Univers one 50 mg 01-18 tablet by ity of tablet 00:00: 00:00 mouth [place] 00 :00 daily. Medical Branch tamsulosin 2021-0 Yes [id number] .4mg Take 1 U nivers 0.4 mg 24 8-24 capsule by ity of hr capsule 00:00: mouth [place] 00 daily. Medical Branch ibuprofen 1-0 Yes [id number] 600mg Take 1 U nivers 600 mg 8-24 tablet by ity of tablet 00:00: mouth [place] 00 every 6 Medical (six) Branch hours as needed for Pain (scale 4-6). tamsulosin 1-0 Yes [id number] .4mg Take 1 U nivers 0.4 mg 24 8-24 capsule by ity of hr capsule 00:00: mouth [place] 00 daily. Medical Branch ibuprofen 2020-0 Yes [id number] 600mg Take 1 U nivers 600 mg 8-24 tablet by ity of tablet 00:00: mouth [place] 00 every 6 Medical (six) Branch hours as needed for Pain (scale 4-6). tamsulosin 2020-0 Yes [id number] .4mg Take 1 U nivers 0.4 mg 24 8-24 capsule by ity of hr capsule 00:00: mouth [place] 00 daily. Medical Branch ibuprofen 2020-0 Yes [id number] 600mg Take 1 U nivers 600 mg 8-24 tablet by ity of tablet 00:00: mouth [place] 00 every 6 Medical (six) Branch hours as needed for Pain (scale 4-6). tamsulosin 2020-0 Yes [id number] .4mg Take 1 U nivers 0.4 mg 24 8-24 capsule by ity of hr capsule 00:00: mouth [place] 00 daily. Medical Branch ibuprofen 1-0 Yes [id number] 600mg Take 1 U nivers 600 mg 8-24 tablet by ity of tablet 00:00: mouth [place] 00 every 6 Medical (six) Branch hours as needed for Pain (scale 4-6). tamsulosin 1-0 Yes [id number] .4mg Take 1 U nivers 0.4 mg 24 8-24 capsule by ity of hr capsule 00:00: mouth [place] 00 daily. Medical Branch ibuprofen 1-0 Yes [id number] 600mg Take 1 U nivers 600 mg 8-24 tablet by ity of tablet 00:00: mouth [place] 00 every 6 Medical (six) Branch hours as needed for Pain (scale 4-6). tamsulosin 1-0 Yes [id number] .4mg Take 1 U nivers 0.4 mg 24 8-24 capsule by ity of hr capsule 00:00: mouth [place] 00 daily. Medical Branch ibuprofen 1-0 Yes [id number] 600mg Take 1 U nivers 600 mg 8-24 tablet by ity of tablet 00:00: mouth [place] 00 every 6 Medical (six) Branch hours as needed for Pain (scale 4-6). tamsulosin 1-0 Yes [id number] .4mg Take 1 U nivers 0.4 mg 24 8-24 capsule by ity of hr capsule 00:00: mouth [place] 00 daily. Medical Branch ibuprofen 2020-0 Yes [id number] 600mg Take 1 U nivers 600 mg 8-24 tablet by ity of tablet 00:00: mouth [place] 00 every 6 Medical (six) Branch hours as needed for Pain (scale 4-6). tamsulosin 2020-0 Yes [id number] .4mg Take 1 U nivers 0.4 mg 24 8-24 capsule by ity of hr capsule 00:00: mouth [place] 00 daily. Medical Branch ibuprofen 2020-0 Yes [id number] 600mg Take 1 U nivers 600 mg 8-24 tablet by ity of tablet 00:00: mouth [place] 00 every 6 Medical (six) Branch hours as needed for Pain (scale 4-6). tamsulosin 2020-0 Yes [id number] .4mg Take 1 U nivers 0.4 mg 24 8-24 capsule by ity of hr capsule 00:00: mouth [place] 00 daily. Medical Branch ibuprofen 1-0 Yes [id number] 600mg Take 1 U nivers 600 mg 8-24 tablet by ity of tablet 00:00: mouth [place] 00 every 6 Medical (six) Branch hours as needed for Pain (scale 4-6). tamsulosin 1-0 Yes [id number] .4mg Take 1 U nivers 0.4 mg 24 8-24 capsule by ity of hr capsule 00:00: mouth [place] 00 daily. Medical Branch ibuprofen 1-0 Yes [id number] 600mg Take 1 U nivers 600 mg 8-24 tablet by ity of tablet 00:00: mouth [place] 00 every 6 Medical (six) Branch hours as needed for Pain (scale 4-6). tamsulosin 2021-0 Yes [id number] .4mg Take 1 U nivers 0.4 mg 24 8-24 capsule by ity of hr capsule 00:00: mouth [place] 00 daily. Medical Branch ibuprofen 2020-0 Yes [id number] 600mg Take 1 U nivers 600 mg 8-24 tablet by ity of tablet 00:00: mouth [place] 00 every 6 Medical (six) Branch hours as needed for Pain (scale 4-6). tamsulosin 2020-0 Yes [id number] .4mg Take 1 U nivers 0.4 mg 24 8-24 capsule by ity of hr capsule 00:00: mouth [place] 00 daily. Medical Branch tamsulosin 2020-0 Yes [id number] .4mg Take 1 U nivers 0.4 mg 24 8-24 capsule by ity of hr capsule 00:00: mouth [place] 00 daily. Medical Branch tamsulosin 0 Yes [id number] .4mg Take 1 U nivers 0.4 mg 24 8-24 capsule by ity of hr capsule 00:00: mouth [place] 00 daily. Medical Branch tamsulosin 2020-0 Yes [id number] .4mg Take 1 U nivers 0.4 mg 24 8-24 capsule by ity of hr capsule 00:00: mouth [place] 00 daily. Medical Branch tamsulosin 2020-0 Yes [id number] .4mg Take 1 U nivers 0.4 mg 24 8-24 capsule by ity of hr capsule 00:00: mouth [place] 00 daily. Medical Branch tamsulosin 2020-0 Yes [id number] .4mg Take 1 U nivers 0.4 mg 24 8-24 capsule by ity of hr capsule 00:00: mouth [place] 00 daily. Medical Branch ibuprofen 2020-0 Yes [id number] 600mg Take 1 U nivers 600 mg 8-24 tablet by ity of tablet 00:00: mouth [place] 00 every 6 Medical (six) Branch hours as needed for Pain (scale 4-6). ibuprofen 2020-0 2020- No [id number] 600mg Take 1 Univers 600 mg 8-24 10-13 tablet by ity of tablet 00:00: 00:00 mouth [place] 00 :00 every 6 Medical (six) Branch hours as needed for Pain (scale 4-6). polyethylen 2020-0 Yes [id number] 1{packe Take 1 Univers e glycol 8-17 t} Packet by ity of 3350 00:00: mouth [place] (MIRALAX) 00 every 24 Medica l 17 gram (twenty-fo Branch powder ur) hours as needed for Constipati on. docusate 0 Yes [id number] 250mg Take 1 Un letitia sodium 250 8-17 capsule by ity of mg capsule 00:00: mouth once [place] 00 daily as Medical needed for Branch Constipati on. ondansetron Yes [id number] 4mg Take 1 Univers 4 mg 8-17 tablet by ity of disintegrat 00:00: mouth [place] ing tablet 00 every 4 Medica l (four) Branch hours as needed for Nausea and Vomiting (N/V). cephALEXin Yes [id number] 500mg Take 1 Univers (KEFLEX) 8-17 capsule by ity o f 500 mg 00:00: mouth 3 [place] capsule 00 (three) Medical times Branch daily. polyethylen Yes [id number] 1{packe Take 1 Univers e glycol 8-17 t} Packet by ity of 3350 00:00: mouth [place] (MIRALAX) 00 every 24 Medica l 17 gram (twenty-fo Branch powder ur) hours as needed for Constipati on. docusate Yes [id number] 250mg Take 1 Un letitia sodium 250 8-17 capsule by ity of mg capsule 00:00: mouth once [place] 00 daily as Medical needed for Branch Constipati on. ondansetron Yes [id number] 4mg Take 1 Univers 4 mg 8-17 tablet by ity of disintegrat 00:00: mouth [place] ing tablet 00 every 4 Medica l (four) Branch hours as needed for Nausea and Vomiting (N/V). cephALEXin Yes [id number] 500mg Take 1 [facility] (KEFLEX) 8-17 capsule by ity o f 500 mg 00:00: mouth 3 [place] capsule 00 (three) Medical times Branch daily. polyethylen Yes [id number] 1{packe Take 1 [facility] e glycol 8-17 t} Packet by ity of 3350 00:00: mouth [place] (MIRALAX) 00 every 24 Medica l 17 gram (twenty-fo Branch powder ur) hours as needed for Constipati on. docusate Yes [id number] 250mg Take 1 [facility] [place] sodium 250 8-17 capsule by ity of mg capsule 00:00: mouth once [place] 00 daily as Medical needed for Branch Constipati on. ondansetron Yes [id number] 4mg Take 1 [facility] 4 mg 8-17 tablet by ity of disintegrat 00:00: mouth [place] ing tablet 00 every 4 Medica l (four) Branch hours as needed for Nausea and Vomiting (N/V). cephALEXin Yes [id number] 500mg Take 1 [facility] (KEFLEX) 8-17 capsule by ity o f 500 mg 00:00: mouth 3 [place] capsule 00 (three) Medical times Branch daily. polyethylen Yes [id number] 1{packe Take 1 [facility] e glycol 8-17 t} Packet by ity of 3350 00:00: mouth [place] (MIRALAX) 00 every 24 Medica l 17 gram (twenty-fo Branch powder ur) hours as needed for Constipati on. docusate Yes [id number] 250mg Take 1 [facility] [place] sodium 250 8-17 capsule by [facility]y of mg capsule 00:00: mouth once [place] 00 daily as Medical needed for Branch Constipati on. ondansetron Yes [id number] 4mg Take 1 [facility] 4 mg 8-17 tablet by ity of disintegrat 00:00: mouth [place] ing tablet 00 every 4 Medica l (four) Branch hours as needed for Nausea and Vomiting (N/V). cephALEXin Yes [id number] 500mg Take 1 [facility] (KEFLEX) 8-17 capsule by ity o f 500 mg 00:00: mouth 3 [place] capsule 00 (three) Medical times Branch daily. polyethylen Yes [id number] 1{packe Take 1 [facility] e glycol 8-17 t} Packet by ity of 3350 00:00: mouth [place] (MIRALAX) 00 every 24 Medica l 17 gram (twenty-fo Branch powder ur) hours as needed for Constipati on. docusate Yes [id number] 250mg Take 1 [facility] [place] sodium 250 8-17 capsule by [facility]y of mg capsule 00:00: mouth once [place] 00 daily as Medical needed for Branch Constipati on. ondansetron Yes [id number] 4mg Take 1 [facility] 4 mg 8-17 tablet by ity of disintegrat 00:00: mouth [place] ing tablet 00 every 4 Medica l (four) Branch hours as needed for Nausea and Vomiting (N/V). cephALEXin Yes [id number] 500mg Take 1 [facility] (KEFLEX) 8-17 capsule by ity o f 500 mg 00:00: mouth 3 [place] capsule 00 (three) Medical times Branch daily. polyethylen Yes [id number] 1{packe Take 1 [facility] e glycol 8-17 t} Packet by ity of 3350 00:00: mouth [place] (MIRALAX) 00 every 24 Medica l 17 gram (twenty-fo Branch powder ur) hours as needed for Constipati on. docusate Yes [id number] 250mg Take 1 [facility] [place] sodium 250 8-17 capsule by [facility] of mg capsule 00:00: mouth once [place] 00 daily as Medical needed for Branch Constipati on. ondansetron Yes [id number] 4mg Take 1 [facility] 4 mg 8-17 tablet by ity of disintegrat 00:00: mouth [place] ing tablet 00 every 4 Medica l (four) Branch hours as needed for Nausea and Vomiting (N/V). cephALEXin Yes [id number] 500mg Take 1 [facility] (KEFLEX) 8-17 capsule by ity o f 500 mg 00:00: mouth 3 [place] capsule 00 (three) Medical times Branch daily. polyethylen Yes [id number] 1{packe Take 1 [facility] e glycol 8-17 t} Packet by ity of 3350 00:00: mouth [place] (MIRALAX) 00 every 24 Medica l 17 gram (twenty-fo Branch powder ur) hours as needed for Constipati on. docusate 0 Yes [id number] 250mg Take 1 [facility] [place] sodium 250 8-17 capsule by [facility] of mg capsule 00:00: mouth once [place] 00 daily as Medical needed for Branch Constipati on. ondansetron 0 Yes [id number] 4mg Take 1 [facility] 4 mg 8-17 tablet by ity of disintegrat 00:00: mouth [place] ing tablet 00 every 4 Medica l (four) Branch hours as needed for Nausea and Vomiting (N/V). cephALEXin 0 Yes [id number] 500mg Take 1 [facility] (KEFLEX) 8-17 capsule by ity o f 500 mg 00:00: mouth 3 [place] capsule 00 (three) Medical times Branch daily. polyethylen 2020- Yes [id number] 1{packe Take 1 [facility] e glycol 8-17 t} Packet by ity of 3350 00:00: mouth [place] (MIRALAX) 00 every 24 Medica l 17 gram (twenty-fo Branch powder ur) hours as needed for Constipati on. docusate 0 Yes [id number] 250mg Take 1 [facility] [place] sodium 250 8-17 capsule by [facility]y of mg capsule 00:00: mouth once [place] 00 daily as Medical needed for Branch Constipati on. ondansetron 2020-0 Yes [id number] 4mg Take 1 [facility] 4 mg 8-17 tablet by ity of disintegrat 00:00: mouth [place] ing tablet 00 every 4 Medica l (four) Branch hours as needed for Nausea and Vomiting (N/V). cephALEXin Yes [id number] 500mg Take 1 [facility] (KEFLEX) 8-17 capsule by ity o f 500 mg 00:00: mouth 3 [place] capsule 00 (three) Medical times Branch daily. polyethylen 2020- Yes [id number] 1{packe Take 1 [facility] e glycol 8-17 t} Packet by ity of 3350 00:00: mouth [place] (MIRALAX) 00 every 24 Medica l 17 gram (twenty-fo Branch powder ur) hours as needed for Constipati on. docusate 2020-0 Yes [id number] 250mg Take 1 [facility] [place] sodium 250 8-17 capsule by [facility] of mg capsule 00:00: mouth once [place] 00 daily as Medical needed for Branch Constipati on. ondansetron 2020-0 Yes [id number] 4mg Take 1 [facility] 4 mg 8-17 tablet by ity of disintegrat 00:00: mouth [place] ing tablet 00 every 4 Medica l (four) Branch hours as needed for Nausea and Vomiting (N/V). cephALEXin 2020-0 Yes [id number] 500mg Take 1 [facility] (KEFLEX) 8-17 capsule by ity o f 500 mg 00:00: mouth 3 [place] capsule 00 (three) Medical times Branch daily. polyethylen Yes [id number] 1{packe Take 1 [facility] e glycol 8-17 t} Packet by ity of 3350 00:00: mouth [place] (MIRALAX) 00 every 24 Medica l 17 gram (twenty-fo Branch powder ur) hours as needed for Constipati on. docusate Yes [id number] 250mg Take 1 [facility] [place] sodium 250 8-17 capsule by [facility] of mg capsule 00:00: mouth once [place] 00 daily as Medical needed for Branch Constipati on. ondansetron Yes [id number] 4mg Take 1 [facility] 4 mg 8-17 tablet by ity of disintegrat 00:00: mouth [place] ing tablet 00 every 4 Medica l (four) Branch hours as needed for Nausea and Vomiting (N/V). cephALEXin Yes [id number] 500mg Take 1 [facility] (KEFLEX) 8-17 capsule by ity o f 500 mg 00:00: mouth 3 [place] capsule 00 (three) Medical times Branch daily. polyethylen Yes [id number] 1{packe Take 1 [facility] e glycol 8-17 t} Packet by ity of 3350 00:00: mouth [place] (MIRALAX) 00 every 24 Medica l 17 gram (twenty-fo Branch powder ur) hours as needed for Constipati on. docusate Yes [id number] 250mg Take 1 [facility] [place] sodium 250 8-17 capsule by [facility] of mg capsule 00:00: mouth once [place] 00 daily as Medical needed for Branch Constipati on. ondansetron Yes [id number] 4mg Take 1 [facility] 4 mg 8-17 tablet by ity of disintegrat 00:00: mouth [place] ing tablet 00 every 4 Medica l (four) Branch hours as needed for Nausea and Vomiting (N/V). cephALEXin 0 Yes [id number] 500mg Take 1 [facility] (KEFLEX) 8-17 capsule by ity o f 500 mg 00:00: mouth 3 [place] capsule 00 (three) Medical times Branch daily. polyethylen Yes [id number] 1{packe Take 1 [facility] e glycol 8-17 t} Packet by ity of 3350 00:00: mouth [place] (MIRALAX) 00 every 24 Medica l 17 gram (twenty-fo Branch powder ur) hours as needed for Constipati on. docusate Yes [id number] 250mg Take 1 [facility] [place] sodium 250 8-17 capsule by [facility] of mg capsule 00:00: mouth once [place] 00 daily as Medical needed for Branch Constipati on. ondansetron Yes [id number] 4mg Take 1 [facility] 4 mg 8-17 tablet by ity of disintegrat 00:00: mouth [place] ing tablet 00 every 4 Medica l (four) Branch hours as needed for Nausea and Vomiting (N/V). cephALEXin Yes [id number] 500mg Take 1 [facility] (KEFLEX) 8-17 capsule by ity o f 500 mg 00:00: mouth 3 [place] capsule 00 (three) Medical times Branch daily. polyethylen Yes [id number] 1{packe Take 1 [facility] e glycol 8-17 t} Packet by ity of 3350 00:00: mouth [place] (MIRALAX) 00 every 24 Medica l 17 gram (twenty-fo Branch powder ur) hours as needed for Constipati on. docusate Yes [id number] 250mg Take 1 [facility] [place] sodium 250 8-17 capsule by [facility] of mg capsule 00:00: mouth once [place] 00 daily as Medical needed for Branch Constipati on. ondansetron Yes [id number] 4mg Take 1 [facility] 4 mg 8-17 tablet by ity of disintegrat 00:00: mouth [place] ing tablet 00 every 4 Medica l (four) Branch hours as needed for Nausea and Vomiting (N/V). cephALEXin Yes [id number] 500mg Take 1 [facility] (KEFLEX) 8-17 capsule by ity o f 500 mg 00:00: mouth 3 [place] capsule 00 (three) Medical times Branch daily. polyethylen Yes [id number] 1{packe Take 1 [facility] e glycol 8-17 t} Packet by ity of 3350 00:00: mouth [place] (MIRALAX) 00 every 24 Medica l 17 gram (twenty-fo Branch powder ur) hours as needed for Constipati on. docusate Yes [id number] 250mg Take 1 [facility] [place] sodium 250 8-17 capsule by ity of mg capsule 00:00: mouth once [place] 00 daily as Medical needed for Branch Constipati on. ondansetron Yes [id number] 4mg Take 1 [facility] 4 mg 8-17 tablet by ity of disintegrat 00:00: mouth [place] ing tablet 00 every 4 Medica l (four) Branch hours as needed for Nausea and Vomiting (N/V). cephALEXin Yes [id number] 500mg Take 1 [facility] (KEFLEX) 8-17 capsule by ity o f 500 mg 00:00: mouth 3 [place] capsule 00 (three) Medical times Branch daily. polyethylen Yes [id number] 1{packe Take 1 [facility] e glycol 8-17 t} Packet by ity of 3350 00:00: mouth [place] (MIRALAX) 00 every 24 Medica l 17 gram (twenty-fo Branch powder ur) hours as needed for Constipati on. docusate Yes [id number] 250mg Take 1 [facility] [place] sodium 250 8-17 capsule by ity of mg capsule 00:00: mouth once [place] 00 daily as Medical needed for Branch Constipati on. ondansetron Yes [id number] 4mg Take 1 [facility] 4 mg 8-17 tablet by ity of disintegrat 00:00: mouth [place] ing tablet 00 every 4 Medica l (four) Branch hours as needed for Nausea and Vomiting (N/V). cephALEXin Yes [id number] 500mg Take 1 [facility] (KEFLEX) 8-17 capsule by ity o f 500 mg 00:00: mouth 3 [place] capsule 00 (three) Medical times Branch daily. polyethylen Yes [id number] 1{packe Take 1 [facility] e glycol 8-17 t} Packet by ity of 3350 00:00: mouth [place] (MIRALAX) 00 every 24 Medica l 17 gram (twenty-fo Branch powder ur) hours as needed for Constipati on. docusate 0 Yes [id number] 250mg Take 1 [facility] [place] sodium 250 8-17 capsule by ity of mg capsule 00:00: mouth once [place] 00 daily as Medical needed for Branch Constipati on. ondansetron Yes [id number] 4mg Take 1 [facility] 4 mg 8-17 tablet by ity of disintegrat 00:00: mouth [place] ing tablet 00 every 4 Medica l (four) Branch hours as needed for Nausea and Vomiting (N/V). cephALEXin 0 Yes [id number] 500mg Take 1 [facility] (KEFLEX) 8-17 capsule by ity o f 500 mg 00:00: mouth 3 [place] capsule 00 (three) Medical times Branch daily. polyethylen 2020- Yes [id number] 1{packe Take 1 [facility] e glycol 8-17 t} Packet by ity of 3350 00:00: mouth [place] (MIRALAX) 00 every 24 Medica l 17 gram (twenty-fo Branch powder ur) hours as needed for Constipati on. docusate 2020-0 Yes [id number] 250mg Take 1 [facility] [place] sodium 250 8-17 capsule by ity of mg capsule 00:00: mouth once [place] 00 daily as Medical needed for Branch Constipati on. ondansetron 2020-0 Yes [id number] 4mg Take 1 [facility] 4 mg 8-17 tablet by ity of disintegrat 00:00: mouth [place] ing tablet 00 every 4 Medica l (four) Branch hours as needed for Nausea and Vomiting (N/V). cephALEXin 0 Yes [id number] 500mg Take 1 [facility] (KEFLEX) 8-17 capsule by ity o f 500 mg 00:00: mouth 3 [place] capsule 00 (three) Medical times Branch daily. polyethylen 2020- Yes [id number] 1{packe Take 1 [facility] e glycol 8-17 t} Packet by ity of 3350 00:00: mouth [place] (MIRALAX) 00 every 24 Medica l 17 gram (twenty-fo Branch powder ur) hours as needed for Constipati on. docusate 2020-0 Yes [id number] 250mg Take 1 [facility] [place] sodium 250 8-17 capsule by ity of mg capsule 00:00: mouth once [place] 00 daily as Medical needed for Branch Constipati on. ondansetron 2020-0 Yes [id number] 4mg Take 1 [facility] 4 mg 8-17 tablet by ity of disintegrat 00:00: mouth [place] ing tablet 00 every 4 Medica l (four) Branch hours as needed for Nausea and Vomiting (N/V). cephALEXin 2020-0 Yes [id number] 500mg Take 1 [facility] (KEFLEX) 8-17 capsule by ity o f 500 mg 00:00: mouth 3 [place] capsule 00 (three) Medical times Branch daily. polyethylen 2020- Yes [id number] 1{packe Take 1 [facility] e glycol 8-17 t} Packet by ity of 3350 00:00: mouth [place] (MIRALAX) 00 every 24 Medica l 17 gram (twenty-fo Branch powder ur) hours as needed for Constipati on. docusate Yes [id number] 250mg Take 1 [facility] [place] sodium 250 8-17 capsule by ity of mg capsule 00:00: mouth once [place] 00 daily as Medical needed for Branch Constipati on. ondansetron Yes [id number] 4mg Take 1 [facility] 4 mg 8-17 tablet by ity of disintegrat 00:00: mouth [place] ing tablet 00 every 4 Medica l (four) Branch hours as needed for Nausea and Vomiting (N/V). cephALEXin Yes [id number] 500mg Take 1 [facility] (KEFLEX) 8-17 capsule by ity o f 500 mg 00:00: mouth 3 [place] capsule 00 (three) Medical times Branch daily. ondansetron Yes 4mg 4 mg, Slow [facility] (ZOFRAN 8-13 IV Push, ity of (PF)) 17:35: Q4HPRN, 1 [place] injection 4 02 dose, Medical mg Starting Branch Sat12/16/20 at 1235, Until Discontinu ed, Routine, Nausea and Vomiting (N/V), DSU Recovery ondansetron 2020- No 4mg 4 mg, Slow [facility] (ZOFRAN 12-1613 IV Push, ity of (PF)) 17:35: 20:38 Q4HPRN, 1 [place] injection 4 02 :16 dose, Medical mg Starting Branch Sat12/16/20 at 1235, Until Sat12/16/20 at 1538, Routine, Nausea and Vomiting (N/V), DSU Recovery sodium 2020-0 Yes PRN, [facility] chloride 8-13 Starting ity of 0.9 % 17:32: Fri [place] irrigation 00 12/16/20 at Med ical solution 1232, Branch Until Discontinu ed, Intra-op sodium 2020-0 202- No PRN, [facility] chloride 12-16 Starting ity of 0.9 % 17:32: 20:38 Fri [place] irrigation 00 :16 12/16/20 at Med ical solution 1232, Branch Until Sat12/16/20 at 1538, Intra-op HYDROcodone 2020- No 1{tbl} 1 tablet, [facility] -acetaminop 12-16 Oral, ity of hen (NORCO 17:30: 17:58 ONCE, 1 [place] as 5) 5-325 mg 00 :00 dose, Fri Med ical tablet 1 12/16/20 at Branc h tablet 1230, Routine, PACU HYDROcodone 2020-0 2020- No 1{tbl} 1 tablet, [facility] -acetaminop 12-16 Oral, ity of hen (NORCO 17:30: 17:58 ONCE, 1 [place] 5) 5-325 mg 00 :00 dose, Fri Med ical tablet 1 12/16/20 at Branc h tablet 1230, Routine, PACU HYDROmorphO Yes .2mg 0.2 mg, Uni vers ne 8-13 Slow IV ity of (DILAUDID) 17:19: Push, [place] injection 57 Q5MIN PRN, Medi ramses 0.2 mg 10 doses, Branch Starting Sat12/16/20 at 1219, Until Discontinu ed, Routine, Pain (scale 7-10), PACU
Us e approved by (Faculty): PACU USE -ANESTHESI A SERVICE-HY DROMORPHON E INJECTIONS FENTanyl PF Yes 25ug 25 mcg, Uni vers (SUBLIMAZE 8- Slow IV ity of (PF)) 17:19: Push, [place] injection 57 Q5MIN PRN, Medi ramses 25 mcg 4 doses, Branch Starting Sat12/16/20 at 1219, Until Discontinu ed, Routine, Pain (scale 4-6), PACU ondansetron 0 Yes 4mg 4 mg, Slow [facility] (ZOFRAN 8-13 IV Push, ity of (PF)) 17:19: PRN, 1 [place] injection 4 57 dose, Medical mg Starting Branch Sat12/16/20 at 1219, Until Discontinu ed, Routine, Nausea and Vomiting (N/V), PACU HYDROmorphO 2020- No .2mg 0.2 mg, Un letitia ne 12-16 Slow IV ity of (DILAUDID) 17:19: 20:38 Push, [place] injection 57 :16 Q5MIN PRN, Medi ramses 0.2 mg 10 doses, Branch Starting Sat12/16/20 at 1219, Until Sat12/16/20 at 1538, Routine, Pain (scale 7-10), PACU
Us e approved by (Faculty): PACU USE -ANESTHESI A SERVICE-HY DROMORPHON E INJECTIONS FENTanyl PF 2020- No 25ug 25 mcg, Un letitia (SUBLIMAZE 12-16 Slow IV ity o f (PF)) 17:19: 20:38 Push, [place] injection 57 :16 Q5MIN PRN, Medi ramses 25 mcg 4 doses, Branch Starting Sat12/16/20 at 1219, Until Sat12/16/20 at 1538, Routine, Pain (scale 4-6), PACU ondansetron 2020- No 4mg 4 mg, Slow [facility] (ZOFRAN 12-16 IV Push, ity of (PF)) 17:19: 20:38 PRN, 1 [place] injection 4 57 :16 dose, Medical mg Starting Branch Sat12/16/20 at 1219, Until Sat12/16/20 at 1538, Routine, Nausea and Vomiting (N/V), PACU iohexoL 2020-0 Yes PRN, [facility] (OMNIPAQUE 13 Starting ity o f 300-50 mL)) 16:32: Fri [place] injection 00 12/16/20 at [facility] 1132, Branch Until Discontinu ed, Routine, Intra-op iohexoL 0 2020- No PRN, Univers (OMNIPAQUE 12-16 Starting ity of 300-50 mL)) 16:32: 20:38 Fri [place] injection 00 :16 12/16/20 at [facility] 1132, Branch Until Sat12/16/20 at 1538, Routine, Intra-op ibuprofen 2020-0 Yes [id number] 600mg Take 1 U nivers 600 mg 12-16 tablet by ity of tablet 00:00: mouth [place] 00 every 6 Medical (six) Branch hours as needed for Pain (scale 4-6). tamsulosin 2020-0 Yes [id number] .4mg Take 1 U nivers 0.4 mg 24 8-13 capsule by ity of hr capsule 00:00: mouth [place] 00 daily. Medical Branch oxybutynin 2020-0 Yes [id number] 5mg Take 1 U nivers chloride 5 8-13 tablet by ity of mg tablet 00:00: mouth 2 (two) Medical times Branch daily as needed for Bladder spasms. ibuprofen 2020-0 Yes [id number] 600mg Take 1 U nivers 600 mg 8-13 tablet by ity of tablet 00:00: mouth [place] 00 every 6 Medical (six) Branch hours as needed for Pain (scale 4-6). tamsulosin 2020-0 Yes [id number] .4mg Take 1 U nivers 0.4 mg 24 8-13 capsule by ity of hr capsule 00:00: mouth [place] 00 daily. Medical Branch oxybutynin 2020-0 Yes [id number] 5mg Take 1 U nivers chloride 5 8-13 tablet by ity of mg tablet 00:00: mouth 2 (two) Medical times Branch daily as needed for Bladder spasms. cephALEXin 2020-0 Yes [id number] 250mg Take 1 [facility] 250 mg 8-13 capsule by ity of capsule 00:00: mouth [place] 00 every 6 Medical (six) Branch hours. ibuprofen 2020-0 Yes [id number] 600mg Take 1 U nivers 600 mg 8-13 tablet by ity of tablet 00:00: mouth [place] 00 every 6 Medical (six) Branch hours as needed for Pain (scale 4-6). tamsulosin 2020-0 Yes [id number] .4mg Take 1 U nivers 0.4 mg 24 8-13 capsule by ity of hr capsule 00:00: mouth [place] 00 daily. Medical Branch oxybutynin 2020-0 Yes [id number] 5mg Take 1 U nivers chloride 5 8-13 tablet by ity of mg tablet 00:00: mouth 2 (two) Medical times Branch daily as needed for Bladder spasms. cephALEXin 2020-0 Yes [id number] 250mg Take 1 [facility] 250 mg 8-13 capsule by ity of capsule 00:00: mouth [place] 00 every 6 Medical (six) Branch hours. ibuprofen 1-0 Yes [id number] 600mg Take 1 U nivers 600 mg 8-13 tablet by ity of tablet 00:00: mouth [place] 00 every 6 Medical (six) Branch hours as needed for Pain (scale 4-6). tamsulosin 2021-0 Yes [id number] .4mg Take 1 U nivers 0.4 mg 24 8-13 capsule by ity of hr capsule 00:00: mouth [place] 00 daily. Medical Branch oxybutynin 1-0 Yes [id number] 5mg Take 1 U nivers chloride 5 8-13 tablet by ity of mg tablet 00:00: mouth 2 [place] 00 (two) Medical times Branch daily as needed for Bladder spasms. cephALEXin 1-0 Yes [id number] 250mg Take 1 [facility] 250 mg 8-13 capsule by ity of capsule 00:00: mouth [place] 00 every 6 Medical (six) Branch hours. cephALEXin 1-0 Yes [id number] 250mg Take 1 [facility] 250 mg 8-13 capsule by ity of capsule 00:00: mouth [place] 00 every 6 Medical (six) Branch hours. cephALEXin 2020-0 Yes [id number] 250mg Take 1 [facility] 250 mg 8-13 capsule by ity of capsule 00:00: mouth [place] 00 every 6 Medical (six) Branch hours. cephALEXin 2021-0 Yes [id number] 250mg Take 1 [facility] 250 mg 8-13 capsule by ity of capsule 00:00: mouth [place] 00 every 6 Medical (six) Branch hours. cephALEXin 2021-0 Yes [id number] 250mg Take 1 [facility] 250 mg 8-13 capsule by ity of capsule 00:00: mouth [place] 00 every 6 Medical (six) Branch hours. cephALEXin 2021-0 Yes [id number] 250mg Take 1 [facility] 250 mg 8-13 capsule by ity of capsule 00:00: mouth [place] 00 every 6 Medical (six) Branch hours. cephALEXin 2021-0 Yes [id number] 250mg Take 1 [facility] 250 mg 8-13 capsule by ity of capsule 00:00: mouth [place] 00 every 6 Medical (six) Branch hours. cephALEXin 2021-0 Yes [id number] 250mg Take 1 [facility] 250 mg 8-13 capsule by ity of capsule 00:00: mouth [place] 00 every 6 Medical (six) Branch hours. cephALEXin 2021-0 Yes [id number] 250mg Take 1 [facility] 250 mg 8-13 capsule by ity of capsule 00:00: mouth [place] 00 every 6 Medical (six) Branch hours. cephALEXin 2021-0 Yes [id number] 250mg Take 1 [facility] 250 mg 8-13 capsule by ity of capsule 00:00: mouth [place] 00 every 6 Medical (six) Branch hours. cephALEXin 2021-0 Yes [id number] 250mg Take 1 [facility] 250 mg 8-13 capsule by ity of capsule 00:00: mouth [place] 00 every 6 Medical (six) Branch hours. cephALEXin 1-0 Yes [id number] 250mg Take 1 [facility] 250 mg 8-13 capsule by ity of capsule 00:00: mouth [place] 00 every 6 Medical (six) Branch hours. cephALEXin 2021-0 Yes [id number] 250mg Take 1 [facility] 250 mg 8-13 capsule by ity of capsule 00:00: mouth [place] 00 every 6 Medical (six) Branch hours. cephALEXin 1-0 Yes [id number] 250mg Take 1 [facility] 250 mg 8-13 capsule by ity of capsule 00:00: mouth [place] 00 every 6 Medical (six) Branch hours. cephALEXin 1-0 Yes [id number] 250mg Take 1 [facility] 250 mg 8-13 capsule by ity of capsule 00:00: mouth [place] 00 every 6 Medical (six) Branch hours. cephALEXin 1-0 Yes [id number] 250mg Take 1 [facility] 250 mg 8-13 capsule by ity of capsule 00:00: mouth [place] 00 every 6 Medical (six) Branch hours. cephALEXin 1-0 Yes [id number] 250mg Take 1 [facility] 250 mg 8-13 capsule by ity of capsule 00:00: mouth [place] 00 every 6 Medical (six) Branch hours. cephALEXin 1-0 Yes [id number] 250mg Take 1 [facility] 250 mg 8-13 capsule by ity of capsule 00:00: mouth [place] 00 every 6 Medical (six) Branch hours. acetaminoph 2021-0 2022- No [id number] 650mg Take 2 [facility] en 8-13 08-14 tablets by ity of (TYLENOL) 00:00: 04:59 mouth [place] 325 mg 00 :00 every 6 Medical tablet (six) Branch hours as needed for Pain (scale 1-3) or Alternate with ibuprofen for pain scale 4-6. acetaminoph 2021- No [id number] 650mg Take 2 [facility] en 8-13 08-14 tablets by ity of (TYLENOL) 00:00: 04:59 mouth [place] 325 mg 00 :00 every 6 Medical tablet (six) Branch hours as needed for Pain (scale 1-3) or Alternate with ibuprofen for pain scale 4-6. acetaminoph 2021- No [id number] 650mg Take 2 [facility] en 8-13 08-14 tablets by ity of (TYLENOL) 00:00: 04:59 mouth [place] 325 mg 00 :00 every 6 Medical tablet (six) Branch hours as needed for Pain (scale 1-3) or Alternate with ibuprofen for pain scale 4-6. acetaminoph 2021- No [id number] 650mg Take 2 [facility] en 8-13 08-14 tablets by ity of (TYLENOL) 00:00: 04:59 mouth [place] 325 mg 00 :00 every 6 Medical tablet (six) Branch hours as needed for Pain (scale 1-3) or Alternate with ibuprofen for pain scale 4-6. acetaminoph 2021- No [id number] 650mg Take 2 [facility] en 8-13 08-14 tablets by ity of (TYLENOL) 00:00: 04:59 mouth [place] 325 mg 00 :00 every 6 Medical tablet (six) Branch hours as needed for Pain (scale 1-3) or Alternate with ibuprofen for pain scale 4-6. acetaminoph 2021- No [id number] 650mg Take 2 [facility] en 8-13 08-14 tablets by ity of (TYLENOL) 00:00: 04:59 mouth [place] 325 mg 00 :00 every 6 Medical tablet (six) Branch hours as needed for Pain (scale 1-3) or Alternate with ibuprofen for pain scale 4-6. acetaminoph 2020-2021- No [id number] 650mg Take 2 [facility] en 8-13 08-14 tablets by ity of (TYLENOL) 00:00: 04:59 mouth [place] 325 mg 00 :00 every 6 Medical tablet (six) Branch hours as needed for Pain (scale 1-3) or Alternate with ibuprofen for pain scale 4-6. acetaminoph 2021- No [id number] 650mg Take 2 [facility] en 8-13 08-14 tablets by ity of (TYLENOL) 00:00: 04:59 mouth [place] 325 mg 00 :00 every 6 Medical tablet (six) Branch hours as needed for Pain (scale 1-3) or Alternate with ibuprofen for pain scale 4-6. acetaminoph 2021- No [id number] 650mg Take 2 [facility] en 8-13 08-14 tablets by ity of (TYLENOL) 00:00: 04:59 mouth [place] 325 mg 00 :00 every 6 Medical tablet (six) Branch hours as needed for Pain (scale 1-3) or Alternate with ibuprofen for pain scale 4-6. acetaminoph 2021- No [id number] 650mg Take 2 [facility] en 8-13 08-14 tablets by ity of (TYLENOL) 00:00: 04:59 mouth [place] 325 mg 00 :00 every 6 Medical tablet (six) Branch hours as needed for Pain (scale 1-3) or Alternate with ibuprofen for pain scale 4-6. acetaminoph 2021- No [id number] 650mg Take 2 [facility] en 8-13 08-14 tablets by ity of (TYLENOL) 00:00: 04:59 mouth [place] 325 mg 00 :00 every 6 Medical tablet (six) Branch hours as needed for Pain (scale 1-3) or Alternate with ibuprofen for pain scale 4-6. acetaminoph 2021- No [id number] 650mg Take 2 [facility] en 8-13 08-14 tablets by ity of (TYLENOL) 00:00: 04:59 mouth [place] 325 mg 00 :00 every 6 Medical tablet (six) Branch hours as needed for Pain (scale 1-3) or Alternate with ibuprofen for pain scale 4-6. acetaminoph 2021- No [id number] 650mg Take 2 [facility] en 8-13 08-14 tablets by ity of (TYLENOL) 00:00: 04:59 mouth [place] 325 mg 00 :00 every 6 Medical tablet (six) Branch hours as needed for Pain (scale 1-3) or Alternate with ibuprofen for pain scale 4-6. acetaminoph 2021- No [id number] 650mg Take 2 [facility] en 8-13 08-14 tablets by ity of (TYLENOL) 00:00: 04:59 mouth [place] 325 mg 00 :00 every 6 Medical tablet (six) Branch hours as needed for Pain (scale 1-3) or Alternate with ibuprofen for pain scale 4-6. acetaminoph 2021- No [id number] 650mg Take 2 [facility] en 8-13 08-14 tablets by ity of (TYLENOL) 00:00: 04:59 mouth [place] 325 mg 00 :00 every 6 Medical tablet (six) Branch hours as needed for Pain (scale 1-3) or Alternate with ibuprofen for pain scale 4-6. acetaminoph 2021- No [id number] 650mg Take 2 [facility] en 8-13 08-14 tablets by ity of (TYLENOL) 00:00: 04:59 mouth [place] 325 mg 00 :00 every 6 Medical tablet (six) Branch hours as needed for Pain (scale 1-3) or Alternate with ibuprofen for pain scale 4-6. acetaminoph 2021- No [id number] 650mg Take 2 [facility] en 8-13 08-14 tablets by ity of (TYLENOL) 00:00: 04:59 mouth [place] 325 mg 00 :00 every 6 Medical tablet (six) Branch hours as needed for Pain (scale 1-3) or Alternate with ibuprofen for pain scale 4-6. acetaminoph 2021- No [id number] 650mg Take 2 [facility] en 8-13 08-14 tablets by ity of (TYLENOL) 00:00: 04:59 mouth [place] 325 mg 00 :00 every 6 Medical tablet (six) Branch hours as needed for Pain (scale 1-3) or Alternate with ibuprofen for pain scale 4-6. acetaminoph 2021- No [id number] 650mg Take 2 [facility] en 8-13 08-14 tablets by ity of (TYLENOL) 00:00: 04:59 mouth [place] 325 mg 00 :00 every 6 Medical tablet (six) Branch hours as needed for Pain (scale 1-3) or Alternate with ibuprofen for pain scale 4-6. acetaminoph 2021- No [id number] 650mg Take 2 [facility] en 8-13 08-14 tablets by ity of (TYLENOL) 00:00: 04:59 mouth [place] 325 mg 00 :00 every 6 Medical tablet (six) Branch hours as needed for Pain (scale 1-3) or Alternate with ibuprofen for pain scale 4-6. acetaminoph 2021- No [id number] 650mg Take 2 [facility] en 8- 08-14 tablets by ity of (TYLENOL) 00:00: 04:59 mouth [place] 325 mg 00 :00 every 6 Medical tablet (six) Branch hours as needed for Pain (scale 1-3) or Alternate with ibuprofen for pain scale 4-6. ibuprofen 2020- No [id number] 600mg Take 1 [facility] 600 mg 8-13 08-24 tablet by ity of tablet 00:00: 00:00 mouth [place] 00 :00 every 6 Medical (six) Branch hours as needed for Pain (scale 4-6). tamsulosin 2020- No [id number] .4mg Take 1 [facility] 0.4 mg 24 8-13 08-24 capsule by ity of hr capsule 00:00: 00:00 mouth [place] 00 :00 daily. Medical Branch oxybutynin 2020- No [id number] 5mg Take 1 [facility] chloride 5 8- 08-24 tablet by it[facility] of mg tablet 00:00: 00:00 mouth 2 [place] 00 :00 (two) Medical times Branch daily as needed for Bladder spasms. ibuprofen 2020- No [id number] 600mg Take 1 [facility] 600 mg 8-13 08-24 tablet by ity of tablet 00:00: 00:00 mouth [place] 00 :00 every 6 Medical (six) Branch hours as needed for Pain (scale 4-6). tamsulosin 2020- No [id number] .4mg Take 1 [facility] 0.4 mg 24 8-13 08-24 capsule by ity of hr capsule 00:00: 00:00 mouth [place] 00 :00 daily. Medical Branch oxybutynin 2020- No [id number] 5mg Take 1 [facility] chloride 5 8-13 08-24 tablet by ity of mg tablet 00:00: 00:00 mouth 2 [place] 00 :00 (two) Medical times Branch daily as needed for Bladder spasms. ibuprofen 2020- No [id number] 600mg Take 1 [facility] 600 mg 8-13 08-24 tablet by ity of tablet 00:00: 00:00 mouth [place] 00 :00 every 6 Medical (six) Branch hours as needed for Pain (scale 4-6). tamsulosin 2020- No [id number] .4mg Take 1 [facility] 0.4 mg 24 8-16 12-24 capsule by ity of hr capsule 00:00: 00:00 mouth [place] 00 :00 daily. Medical Branch oxybutynin 2020- No [id number] 5mg Take 1 [facility] chloride 5 12-16-24 tablet by ity of mg tablet 00:00: 00:00 mouth 2 [place] 00 :00 (two) Medical times Branch daily as needed for Bladder spasms. ibuprofen 2020- No [id number] 600mg Take 1 [facility] 600 mg 12-16-24 tablet by ity of tablet 00:00: 00:00 mouth [place] 00 :00 every 6 Medical (six) Branch hours as needed for Pain (scale 4-6). tamsulosin 2020- No [id number] .4mg Take 1 [facility] 0.4 mg 24 12-16-24 capsule by ity of hr capsule 00:00: 00:00 mouth [place] 00 :00 daily. Medical Branch oxybutynin 2020- No [id number] 5mg Take 1 [facility] chloride 5 12-1624 tablet by ity of mg tablet 00:00: 00:00 mouth 2 [place] 00 :00 (two) Medical times Branch daily as needed for Bladder spasms. aspirin 81 2020-0 Yes [id number] 81mg Take 1 U nivers mg chewable 7-23 tablet by ity of tablet 00:00: mouth [place] 00 daily. Medical Branch aspirin 81 2020-0 Yes [id number] 81mg Take 1 U nivers mg chewable 7-23 tablet by ity of tablet 00:00: mouth [place] 00 daily. Medical Branch aspirin 81 2020-0 Yes [id number] 81mg Take 1 U nivers mg chewable 7-23 tablet by ity of tablet 00:00: mouth [place] 00 daily. Medical Branch aspirin 81 2020-0 Yes [id number] 81mg Take 1 U nivers mg chewable 7-23 tablet by ity of tablet 00:00: mouth [place] 00 daily. Medical Branch aspirin 81 2020-0 Yes [id number] 81mg Take 1 U nivers mg chewable 7-23 tablet by ity of tablet 00:00: mouth [place] 00 daily. Medical Branch aspirin 81 2020-0 Yes [id number] 81mg Take 1 U nivers mg chewable 7-23 tablet by ity of tablet 00:00: mouth [place] 00 daily. Medical Branch aspirin 81 2020-0 Yes [id number] 81mg Take 1 U nivers mg chewable 7-23 tablet by ity of tablet 00:00: mouth [place] 00 daily. Medical Branch aspirin 81 2020-0 Yes [id number] 81mg Take 1 U nivers mg chewable 7-23 tablet by ity of tablet 00:00: mouth [place] 00 daily. Medical Branch aspirin 81 2020-0 Yes [id number] 81mg Take 1 U nivers mg chewable 7-23 tablet by ity of tablet 00:00: mouth [place] 00 daily. Medical Branch aspirin 81 2020-0 Yes [id number] 81mg Take 1 U nivers mg chewable 7-23 tablet by ity of tablet 00:00: mouth [place] 00 daily. Medical Branch aspirin 81 2020-0 Yes [id number] 81mg Take 1 U nivers mg chewable 7-23 tablet by ity of tablet 00:00: mouth [place] 00 daily. Medical Branch aspirin 81 2020-0 Yes [id number] 81mg Take 1 U nivers mg chewable 7-23 tablet by ity of tablet 00:00: mouth [place] 00 daily. Medical Branch aspirin 81 2020-0 Yes [id number] 81mg Take 1 U nivers mg chewable 7-23 tablet by ity of tablet 00:00: mouth [place] 00 daily. Medical Branch aspirin 81 2020-0 Yes [id number] 81mg Take 1 U nivers mg chewable 7-23 tablet by ity of tablet 00:00: mouth [place] 00 daily. Medical Branch aspirin 81 2020-0 Yes [id number] 81mg Take 1 U nivers mg chewable 7-23 tablet by ity of tablet 00:00: mouth [place] 00 daily. Medical Branch aspirin 81 2020-0 Yes [id number] 81mg Take 1 U nivers mg chewable 7-23 tablet by ity of tablet 00:00: mouth [place] 00 daily. Medical Branch aspirin 81 2020-0 Yes [id number] 81mg Take 1 U nivers mg chewable 7-23 tablet by ity of tablet 00:00: mouth [place] 00 daily. [facility] Branch aspirin 81 2020-0 Yes [id number] 81mg Take 1 U nivers mg chewable 7-23 tablet by ity of tablet 00:00: mouth [place] 00 daily. [facility] Branch aspirin 81 2020-0 Yes [id number] 81mg Take 1 U nivers mg chewable 7-23 tablet by ity of tablet 00:00: mouth [place] 00 daily. [facility] Branch aspirin 81 2020-0 Yes [id number] 81mg Take 1 U nivers mg chewable 7-23 tablet by ity of tablet 00:00: mouth [place] 00 daily. [facility] Branch aspirin 81 2020-0 Yes [id number] 81mg Take 1 U nivers mg chewable 7-23 tablet by ity of tablet 00:00: mouth [place] 00 daily. [facility] aspirin 81 2020-0 Yes [id number] 81mg Take 1 U nivers mg chewable 7-23 tablet by ity of tablet 00:00: mouth [place] 00 daily. [facility] aspirin 81 2020-0 Yes [id number] 81mg Take 1 U nivers mg chewable 7-23 tablet by ity of tablet 00:00: mouth [place] 00 daily. [facility] aspirin 81 2020-0 Yes [id number] 81mg Take 1 U nivers mg chewable 7-23 tablet by ity of tablet 00:00: mouth [place] 00 daily. [facility] aspirin 81 2020-0 Yes [id number] 81mg Take 1 U nivers mg chewable 7-23 tablet by ity of tablet 00:00: mouth [place] 00 daily. [facility] morpHINE 2020-0 2020- No 2mg 2 mg, Slow [facility] [place] injection 2 11-24 IV Push, ity of mg 14:45: 14:02 ONCE, 1 [place] 00 :00 dose, [facility] 11/24/20 at Branch 0945, Routine aspirin 2020-0 Yes 81mg 81 mg, [facility] chewable 7-22 Oral, ity of tablet 81 14:00: DAILY, [place] mg 00 First dose Medical on [facility] [place] 11/24/20 at 0900, Until Discontinu ed, Routine spironolact 2020-0 Yes 50mg 50 mg, Univ ers one - Oral, ity of (ALDACTONE) 14:00: DAILY, [place] tablet 50 00 First dose Medi ramses mg on [facility] Branch 11/24/20 at 0900, Until Discontinu ed, Routine tamsulosin Yes .4mg 0.4 mg, Univ ers (FLOMAX) 11-24 Oral, ity of capsule 0.4 14:00: DAILY, [place] mg 00 First dose Medical on [facility] Branch 11/24/20 at 0900, Until Discontinu ed, Routine enalapril Yes 2.5mg 2.5 mg, Univ ers (VASOTEC) 11-24 Oral, ity of tablet 2.5 14:00: DAILY, [place] mg 00 First dose Medical on [facility] Branch 11/24/20 at 0900, Until Discontinu ed, Routine doxycycline 2020- No 100mg 100 mg, U nivers hyclate 11-24 Oral, ity of (Vibramycin 11:00: 10:59 Q12HA2, 14 [place] ) capsule 00 :00 doses, Medical 100 mg First dose Branch on [facility] 11/24/20 at 0600, Last dose on Sat11/30/20 at 1800, ZAY
Re ason for Anti-Infec tive: Surgical Prophylaxi s
Surgi ramses Prophylaxi s: Cardiothor acic
Du ration of therapy: within 24 hours of surgery KCL 2020- No 40meq 40 mEq, Univers (KLOR-CON 11-24 Oral, Q2H, ity of M20) tablet 11:00: 10:37 1 dose, [place] 40 mEq 00 :00 First dose Medical on [facility] 11/24/20 at 0600, Routine magnesium 2020- No 2g 2 g, IV Univ ers sulfate in 11-24 Piggyback, it y of water 2 10:45: 10:37 ONCE, 1 [place] gram/50 mL 00 :00 dose, [facility] Medi ramses (4 %) 11/24/20 at [place] infusion 2 0545, g Routine atorvastati Yes 40mg 40 mg, Univ ers n (LIPITOR) 11-24 Oral, QHS, it y of tablet 40 02:00: First dose [place] mg 00 on Sat Medical 11/23/20 at Branch 2100, Until Discontinu ed, Routine vancomycin 2020-0 2020- No 1000mg 1,000 mg, Univers (VANCOCIN) 11-24 07- IV ity of 1,000 mg in 02:00: 05:47 Piggyback, [place] NaCl 0.9% 00 :00 ONCE, 1 Medical (NS) 250 mL dose, Sat [facility] VIAL-MATE 11/23/20 at IV 2100, 250 piggyback mL
Reas on for Anti-Infec tive: Surgical Prophylaxi s
Surgi ramses Prophylaxi s: Cardiothor acic
Du ration of therapy: within 24 hours of surgery metoprolol 0 Yes 25mg 25 mg, Unive rs succinate 7-22 Oral, BID, ity of XL (TOPROL 01:00: First dose [place] XL) tablet 00 on Sat Medical 25 mg 11/23/20 at [place] 1999, Until Discontinu ed, Routine isosorbide 0 Yes 30mg 30 mg, Unive rs mononitrate 7-22 Oral, BID, it y of (IMDUR) 24 01:00: First dose [place] hr tablet 00 on Sat Medical 30 mg 11/23/20 at [place] 1999, Until Discontinu ed, Routine isosorbide 2020-0 Yes [id number] 30mg Take 1 U nivers mononitrate 7-22 tablet by ity of 30 mg 24 hr 00:00: mouth 2 [place] as tablet 00 (two) Medical times [place] daily. clopidogreL 2020-0 Yes [id number] 75mg Take 1 [facility] 75 mg 7-22 tablet by ity of tablet 00:00: mouth [place] 00 daily. [facility] Branch isosorbide 2020-0 Yes [id number] 30mg Take 1 U nivers mononitrate 7-22 tablet by ity of 30 mg 24 hr 00:00: mouth 2 [place] tablet 00 (two) Medical times Branch daily. clopidogreL 2020-0 Yes [id number] 75mg Take 1 [facility] 75 mg 7-22 tablet by ity of tablet 00:00: mouth [place] 00 daily. [facility] isosorbide 2020-0 Yes [id number] 30mg Take 1 U nivers mononitrate 7-22 tablet by ity of 30 mg 24 hr 00:00: mouth 2 [place] tablet 00 (two) Medical times Branch daily. clopidogreL 2021-0 Yes [id number] 75mg Take 1 [facility] 75 mg 7-22 tablet by ity of tablet 00:00: mouth [place] 00 daily. Medical Branch isosorbide 2021-0 Yes [id number] 30mg Take 1 U nivers mononitrate 7-22 tablet by ity of 30 mg 24 hr 00:00: mouth 2 [place] tablet 00 (two) Medical times Branch daily. clopidogreL 1-0 Yes [id number] 75mg Take 1 [facility] 75 mg 7-22 tablet by ity of tablet 00:00: mouth [place] 00 daily. Medical Branch isosorbide 1-0 Yes [id number] 30mg Take 1 U nivers mononitrate 7-22 tablet by ity of 30 mg 24 hr 00:00: mouth 2 [place] tablet 00 (two) Medical times Branch daily. clopidogreL 2020-0 Yes [id number] 75mg Take 1 [facility] 75 mg 7-22 tablet by ity of tablet 00:00: mouth [place] 00 daily. Medical Branch isosorbide 2020-0 Yes [id number] 30mg Take 1 U nivers mononitrate 7-22 tablet by ity of 30 mg 24 hr 00:00: mouth 2 [place] tablet 00 (two) Medical times Branch daily. clopidogreL 2020-0 Yes [id number] 75mg Take 1 [facility] 75 mg 7-22 tablet by ity of tablet 00:00: mouth [place] 00 daily. Medical Branch isosorbide 2020-0 Yes [id number] 30mg Take 1 U nivers mononitrate 7-22 tablet by ity of 30 mg 24 hr 00:00: mouth 2 [place] tablet 00 (two) Medical times Branch daily. clopidogreL 1-0 Yes [id number] 75mg Take 1 [facility] 75 mg 7-22 tablet by ity of tablet 00:00: mouth [place] 00 daily. Medical Branch isosorbide 1-0 Yes [id number] 30mg Take 1 U nivers mononitrate 7-22 tablet by ity of 30 mg 24 hr 00:00: mouth 2 [place] tablet 00 (two) Medical times Branch daily. clopidogreL 2021-0 Yes [id number] 75mg Take 1 [facility] 75 mg 7-22 tablet by ity of tablet 00:00: mouth [place] 00 daily. Medical Branch isosorbide 1-0 Yes [id number] 30mg Take 1 U nivers mononitrate 7-22 tablet by ity of 30 mg 24 hr 00:00: mouth 2 [place] tablet 00 (two) Medical times Branch daily. clopidogreL 2020-0 Yes [id number] 75mg Take 1 [facility] 75 mg 7-22 tablet by ity of tablet 00:00: mouth [place] 00 daily. Medical Branch isosorbide 1-0 Yes [id number] 30mg Take 1 U nivers mononitrate 7-22 tablet by ity of 30 mg 24 hr 00:00: mouth 2 [place] tablet 00 (two) Medical times Branch daily. clopidogreL 2020-0 Yes [id number] 75mg Take 1 [facility] 75 mg 7-22 tablet by ity of tablet 00:00: mouth [place] 00 daily. Medical Branch isosorbide 2020-0 Yes [id number] 30mg Take 1 U nivers mononitrate 7-22 tablet by ity of 30 mg 24 hr 00:00: mouth 2 [place] tablet 00 (two) Medical times Branch daily. clopidogreL 2020-0 Yes [id number] 75mg Take 1 [facility] 75 mg 7-22 tablet by ity of tablet 00:00: mouth [place] 00 daily. Medical Branch isosorbide 2020-0 Yes [id number] 30mg Take 1 U nivers mononitrate 7-22 tablet by ity of 30 mg 24 hr 00:00: mouth 2 [place] tablet 00 (two) Medical times Branch daily. clopidogreL 2020-0 Yes [id number] 75mg Take 1 [facility] 75 mg 7-22 tablet by ity of tablet 00:00: mouth [place] 00 daily. Medical Branch isosorbide 1-0 Yes [id number] 30mg Take 1 U nivers mononitrate 7-22 tablet by ity of 30 mg 24 hr 00:00: mouth 2 [place] tablet 00 (two) Medical times Branch daily. clopidogreL 2020-0 Yes [id number] 75mg Take 1 [facility] 75 mg 7-22 tablet by ity of tablet 00:00: mouth [place] 00 daily. Medical Branch isosorbide 2021-0 Yes [id number] 30mg Take 1 U nivers mononitrate 7-22 tablet by ity of 30 mg 24 hr 00:00: mouth 2 [place] tablet 00 (two) Medical times Branch daily. clopidogreL 2021-0 Yes [id number] 75mg Take 1 [facility] 75 mg 7-22 tablet by ity of tablet 00:00: mouth [place] 00 daily. Medical Branch isosorbide 1-0 Yes [id number] 30mg Take 1 U nivers mononitrate 7-22 tablet by ity of 30 mg 24 hr 00:00: mouth 2 [place] tablet 00 (two) Medical times Branch daily. clopidogreL 2020-0 Yes [id number] 75mg Take 1 [facility] 75 mg 7-22 tablet by ity of tablet 00:00: mouth [place] 00 daily. Medical Branch isosorbide 2020-0 Yes [id number] 30mg Take 1 U nivers mononitrate 7-22 tablet by ity of 30 mg 24 hr 00:00: mouth 2 [place] tablet 00 (two) Medical times Branch daily. clopidogreL 2020-0 Yes [id number] 75mg Take 1 [facility] 75 mg 7-22 tablet by ity of tablet 00:00: mouth [place] 00 daily. Medical Branch isosorbide 2020-0 Yes [id number] 30mg Take 1 U nivers mononitrate 7-22 tablet by ity of 30 mg 24 hr 00:00: mouth 2 [place] tablet 00 (two) Medical times Branch daily. clopidogreL 2020-0 Yes [id number] 75mg Take 1 [facility] 75 mg 7-22 tablet by ity of tablet 00:00: mouth [place] 00 daily. Medical Branch isosorbide 2020-0 Yes [id number] 30mg Take 1 U nivers mononitrate 7-22 tablet by ity of 30 mg 24 hr 00:00: mouth 2 [place] tablet 00 (two) Medical times Branch daily. clopidogreL 2020-0 Yes [id number] 75mg Take 1 [facility] 75 mg 7-22 tablet by ity of tablet 00:00: mouth [place] 00 daily. Medical Branch isosorbide 2020-0 Yes [id number] 30mg Take 1 U nivers mononitrate 7-22 tablet by ity of 30 mg 24 hr 00:00: mouth 2 [place] tablet 00 (two) Medical times Branch daily. clopidogreL 2020-0 Yes [id number] 75mg Take 1 [facility] 75 mg 7-22 tablet by ity of tablet 00:00: mouth [place] 00 daily. Medical Branch isosorbide 2020-0 Yes [id number] 30mg Take 1 U nivers mononitrate 7-22 tablet by ity of 30 mg 24 hr 00:00: mouth 2 [place] tablet 00 (two) Medical times Branch daily. clopidogreL 2020-0 Yes [id number] 75mg Take 1 [facility] 75 mg 7-22 tablet by ity of tablet 00:00: mouth [place] 00 daily. Medical Branch isosorbide 2020-0 Yes [id number] 30mg Take 1 U nivers mononitrate 7-22 tablet by ity of 30 mg 24 hr 00:00: mouth 2 [place] tablet 00 (two) Medical times Branch daily. clopidogreL 2020-0 Yes [id number] 75mg Take 1 [facility] 75 mg 7-22 tablet by ity of tablet 00:00: mouth [place] 00 daily. Medical Branch isosorbide 2020-0 Yes [id number] 30mg Take 1 U nivers mononitrate 7-22 tablet by ity of 30 mg 24 hr 00:00: mouth 2 [place] tablet 00 (two) Medical times Branch daily. clopidogreL 2020-0 Yes [id number] 75mg Take 1 [facility] 75 mg 7-22 tablet by ity of tablet 00:00: mouth [place] 00 daily. Medical Branch isosorbide 2020-0 Yes [id number] 30mg Take 1 U nivers mononitrate 7-22 tablet by ity of 30 mg 24 hr 00:00: mouth 2 [place] tablet 00 (two) Medical times Branch daily. clopidogreL 2020-0 Yes [id number] 75mg Take 1 [facility] 75 mg 7-22 tablet by ity of tablet 00:00: mouth [place] 00 daily. Medical Branch isosorbide 2020-0 Yes [id number] 30mg Take 1 U nivers mononitrate 7-22 tablet by ity of 30 mg 24 hr 00:00: mouth 2 [place] tablet 00 (two) Medical times Branch daily. clopidogreL 2020-0 Yes [id number] 75mg Take 1 [facility] 75 mg 7-22 tablet by ity of tablet 00:00: mouth [place] 00 daily. Medical Branch isosorbide 2020-0 Yes [id number] 30mg Take 1 U nivers mononitrate 7-22 tablet by ity of 30 mg 24 hr 00:00: mouth 2 [place] tablet 00 (two) Medical times Branch daily. clopidogreL 2020-0 Yes [id number] 75mg Take 1 [facility] 75 mg 7-22 tablet by ity of tablet 00:00: mouth [place] 00 daily. Medical Branch doxycycline 1-0 2021- No [id number] 100mg Take 1 [facility] hyclate 100 7-22 07-30 capsule by i ty of mg capsule 00:00: 04:59 mouth [place] 00 :00 every 12 Medical (twelve) Branch hours for 7 days. doxycycline 2020- No [id number] 100mg Take 1 [facility] hyclate 100 11-2430 capsule by i ty of mg capsule 00:00: 04:59 mouth [place] 00 :00 every 12 Medical (twelve) Branch hours for 7 days. doxycycline 2020- No [id number] 100mg Take 1 [facility] hyclate 100 11-24 capsule by i ty of mg capsule 00:00: 04:59 mouth [place] 00 :00 every 12 Medical (twelve) Branch hours for 7 days. ketorolac 2020- No 30mg 30 mg, Unive rs (TORADOL) 11-23 Slow IV ity of injection 23:00: 22:59 Push, Q6H, [place] 30 mg 00 :00 4 doses, Medical First dose Branch (after last modificati on) on Sat11/23/20 at 1800, Last dose on [facility] 11/24/20 at 1200, Routine
[employer] team member approving Restricted medication : AGUILA, KELTON T furosemide Yes 80mg 80 mg, Unive rs (LASIX) 11-23 Oral, ity of tablet 80 22:00: QAM+PM, [place] mg 00 First dose Medical on Sat Branch 11/23/20 at 1700, Until Discontinu ed, Routine morpHINE 2020- No 2mg 2 mg, Slow [facility] [place] injection 2 11-23 IV Push, ity of mg 21:26: 21:40 ONCE, 1 [place] 00 :00 dose, Sat Medical 11/23/20 at Branch 1630, Routine nicotine Yes 1{patch 1 Patch, [facility] [place] (NICODERM) 11-23 } Topical, ity o f 21 mg/24 hr 19:30: Administer [place] patch 1 00 over 24 Medical Patch Hours, Branch Q24H, First dose on Sat11/23/20 at 1430, Until Discontinu ed, Routine HYDROcodone 2020- No 1{tbl} 1 tablet, Univers -acetaminop 11-23 Oral, ity of hen (NORCO 19:10: 19:18 ONCE, 1 [place] 5) 5-325 mg 00 :00 dose, Sat Med ical tablet 1 11/23/20 at [facility] h tablet 1415, Routine traMADoL 2020- No 50mg 50 mg, Univer s (ULTRAM) 11-23 Oral, ity of tablet 50 18:44: 18:43 Q8HPRN, [place] mg 43 :43 Starting Medical Wed Branch 11/23/20 at 1344, Until Sat11/25/20 at 1343, Routine, Pain (scale 4-6) acetaminoph Yes 650mg 650 mg, [facility] [place] en 11-23 Oral, ity of (TYLENOL) 18:44: Q6HPRN, [place] tablet 650 36 Starting Medic al mg [facility] 11/23/20 at 1344, Until Discontinu ed, Routine, Pain (scale 1-3) morpHINE 2020- No [id number] 4mg 4 mg, Slow Univers injection 4 11-23 IV Push, ity of mg 16:00: 15:03 ONCE, 1 [place] 00 :00 dose, Sat11/23/20 at Branch 1100, Routine FENTanyl PF 2020- No Slow IV [facility] [place] (SUBLIMAZE 11-23 Push, ity of (PF)) 13:45: 13:45 TITRATE - [place] injection 00 :00 FOR Medical PROCEDURE Branch USE, 1 dose, Starting Sat11/23/20 at 0845, Until Sat11/23/20 at 0845, Routine midazolam 2020- No IV Push, Uni vers (VERSED) 11-23 TITRATE - ity o f injection 13:44: 13:44 FOR [place] 54 :54 PROCEDURE Medical USE, 1 Branch dose, Starting Sat11/23/20 at 0844, Until Sat11/23/20 at 0844, Routine FENTanyl PF 2020- No Slow IV [place] (SUBLIMAZE 11-23 Push, ity of (PF)) 13:30: 13:30 TITRATE - [place] injection 10 :10 FOR Medical PROCEDURE Branch USE, 1 dose, Starting Sat11/23/20 at 0830, Until Sat11/23/20 at 0830, Routine midazolam 2020- No IV Push, Uni vers (VERSED) 11-23 TITRATE - ity o f injection 13:30: 13:30 FOR [place] 02 :02 PROCEDURE Medical USE, 1 Branch dose, Starting Sat11/23/20 at 0830, Until Sat11/23/20 at 0830, Routine FENTanyl PF 2020- No Slow IV [place] (SUBLIMAZE 11-23 Push, ity of (PF)) 13:27: 13:27 TITRATE - [place] injection 57 :57 FOR Medical PROCEDURE Branch USE, 1 dose, Starting Sat11/23/20 at 0827, Until Sat11/23/20 at 0827, Routine midazolam 2020- No IV Push, Uni vers (VERSED) 11-23 TITRATE - ity o f injection 13:27: 13:27 FOR [place] 51 :51 PROCEDURE Medical USE, 1 Branch dose, Starting Sat11/23/20 at 0827, Until Sat11/23/20 at 0827, Routine vancomycin 2020- No IV Univer s 1000 mg in 11-23 Piggyback, it y of NS 200 mL 13:20: 13:20 TITRATE - [place] RTU IV 20 :20 FOR Medical Piggyback PROCEDURE Branc h USE, 1 dose, Starting Sat11/23/20 at 0820, Until Sat11/23/20 at 0820 FENTanyl PF 2020- No Slow IV [place] (SUBLIMAZE 11-23 Push, ity of (PF)) 13:19: 13:19 TITRATE - [place] injection 15 :15 FOR Medical PROCEDURE Branch USE, 1 dose, Starting Sat11/23/20 at 0819, Until Sat11/23/20 at 0819, Routine midazolam 2020- No IV Push, Uni vers (VERSED) 11-23 TITRATE - ity o f injection 13:19: 13:19 FOR [place] 09 :09 PROCEDURE Medical USE, 1 Branch dose, Starting Sat11/23/20 at 0819, Until Sat11/23/20 at 0819, Routine amiodarone 2020- No [id number] 200mg Take 2 [facility] 100 mg 11-23 tablets by ity of tablet 00:00: 00:00 mouth [place] 00 :00 daily. Medical Branch amiodarone 0 2021- No [id number] 100mg Take 1 [facility] 100 mg 7-21 07-21 tablet by ity of tablet 00:00: 00:00 mouth [place] 00 :00 daily. Medical Branch ketorolac 2020-0 Yes [id number] 10mg Take 1 [facility] [place] 10 mg 7-15 tablet by ity of tablet 00:00: mouth [place] 00 every 6 Medical (six) Branch hours as needed for Pain (scale 7-10). ketorolac 2020-0 Yes [id number] 10mg Take 1 [facility] [place] 10 mg 7-15 tablet by ity of tablet 00:00: mouth [place] 00 every 6 Medical (six) Branch hours as needed for Pain (scale 7-10). ketorolac 2020-0 Yes [id number] 10mg Take 1 [facility] [place] 10 mg 7-15 tablet by ity of tablet 00:00: mouth [place] 00 every 6 Medical (six) Branch hours as needed for Pain (scale 7-10). ketorolac 2020-0 Yes [id number] 10mg Take 1 [facility] [place] 10 mg 7-15 tablet by ity of tablet 00:00: mouth [place] 00 every 6 Medical (six) Branch hours as needed for Pain (scale 7-10). ketorolac 2020-0 Yes [id number] 10mg Take 1 [facility] [place] 10 mg 7-15 tablet by ity of tablet 00:00: mouth [place] 00 every 6 Medical (six) Branch hours as needed for Pain (scale 7-10). ketorolac 2020-0 Yes [id number] 10mg Take 1 [facility] [place] 10 mg 7-15 tablet by ity of tablet 00:00: mouth [place] 00 every 6 Medical (six) Branch hours as needed for Pain (scale 7-10). ketorolac 2020-0 Yes [id number] 10mg Take 1 [facility] [place] 10 mg 7-15 tablet by ity of tablet 00:00: mouth [place] 00 every 6 Medical (six) Branch hours as needed for Pain (scale 7-10). ketorolac 2020-0 Yes [id number] 10mg Take 1 Un letit[place] 10 mg 7-15 tablet by ity of tablet 00:00: mouth [place] 00 every 6 Medical (six) Branch hours as needed for Pain (scale 7-10). ketorolac 2020-0 2020- No [id number] 10mg Take 1 U nivers 10 mg 7-15 08-13 tablet by ity of tablet 00:00: 00:00 mouth [place] 00 :00 every 6 Medical (six) Branch hours as needed for Pain (scale 7-10). ketorolac 2020-0 202- No [id number] 10mg Take 1 U nivers 10 mg 7-15 08-13 tablet by ity of tablet 00:00: 00:00 mouth [place] 00 :00 every 6 Medical (six) Branch hours as needed for Pain (scale 7-10). ondansetron 2020-0 2020- No 4mg 4 mg, Slow Univers (ZOFRAN 11-15 IV Push, ity of (PF)) 02:00: 01:10 ONCE, 1 [place] injection 4 00 :00 dose, Mon Med ical mg 11/14/20 at Branch 2100, ZAY morpHINE 2020- No 4mg 4 mg, Slow Un letitia injection 4 11-15 IV Push, ity of mg 02:00: 01:10 ONCE, 1 [place] 00 :00 dose, [facility] 11/14/20 at Branch 2100, STAT ketorolac 2020-2020- No 30mg 30 mg, Unive rs (TORADOL) 11-15 Slow IV ity of injection 00:30: 23:29 Push, [place] 30 mg 00 :00 ONCE, 1 Medical dose, [facility] 11/14/20 at 1930, ZAY
Fa culty member approving Restricted medication : MAYNOR THOMPSON ondansetron 2020-2020- No 4mg 4 mg, Slow Univers (ZOFRAN 11-15 IV Push, ity of (PF)) 00:30: 23:29 ONCE, 1 [place] injection 4 00 :00 dose, Mon Med ical mg 11/14/20 at Branch 1930, ZAY morpHINE 2020-0 2020- No 4mg 4 mg, Slow Un letitia injection 4 11-15 IV Push, ity of mg 00:30: 23:31 ONCE, 1 [place] 00 :00 dose, [facility] Medical 11/14/20 at Branch 1930, STAT NaCl 0.9% 2020-0 2020- No 1000mL at 999 Uni vers (NS) bolus - 07-13 mL/hr, ity of infusion 21:45: 00:47 1,000 mL, [place] as 1,000 mL 00 :00 IV Medical Infusion, Branch ONCE, 1 dose, [facility] 11/14/20 at 1645, ZAY acetaminoph 2020-0 Yes 4647 1{tbl} Take 1 Un letitia en-codeine 7-12 tablet by ity of 300-30 mg 00:00: mouth [place] tablet 00 every 4 Medical (four) Branch hours as needed for Pain (scale 7-10). Indication s: acute pain ketorolac 2020-0 Yes [id number] 10mg Take 1 Univers 10 mg 7-12 37805 tablet by ity of tablet 00:00: mouth [place] 00 every 6 Medical (six) Branch hours as needed for Pain (scale 7-10). acetaminoph 2020-0 Yes 4647 1{tbl} Take 1 Un letitia en-codeine 7-12 tablet by ity of 300-30 mg 00:00: mouth [place] tablet 00 every 4 Medical (four) Branch hours as needed for Pain (scale 7-10). Indication s: acute pain ketorolac 2020-0 Yes [id number] 10mg Take 1 Univers 10 mg 7-12 26805 tablet by ity of tablet 00:00: mouth [place] 00 every 6 Medical (six) Branch hours as needed for Pain (scale 7-10). acetaminoph 2020-0 Yes 4647 1{tbl} Take 1 Un letitia en-codeine 7-12 tablet by ity of 300-30 mg 00:00: mouth [place] tablet 00 every 4 Medical (four) Branch hours as needed for Pain (scale 7-10). Indication s: acute pain ketorolac 2020-0 Yes [id number] 10mg Take 1 Univers 10 mg 7-12 [id number] tablet by ity of tablet 00:00: mouth [place] 00 every 6 Medical (six) Branch hours as needed for Pain (scale 7-10). acetaminoph 2020-0 Yes 4647 1{tbl} Take 1 Un letitia en-codeine 7-12 tablet by ity of 300-30 mg 00:00: mouth [place] tablet 00 every 4 Medical (four) Branch hours as needed for Pain (scale 7-10). Indication s: acute pain ketorolac 202-0 Yes [id number] 10mg Take 1 Univers 10 mg 7-12 [id number] tablet by ity of tablet 00:00: mouth [place] 00 every 6 Medical (six) Branch hours as needed for Pain (scale 7-10). acetaminoph 2020-0 Yes 4647 1{tbl} Take 1 Un letitia en-codeine 7-12 tablet by ity of 300-30 mg 00:00: mouth [place] tablet 00 every 4 Medical (four) Branch hours as needed for Pain (scale 7-10). Indication s: acute pain ketorolac 2020-0 Yes [id number] 10mg Take 1 Univers 10 mg 7-12 [id number] tablet by ity of tablet 00:00: mouth [place] 00 every 6 Medical (six) Branch hours as needed for Pain (scale 7-10). acetaminoph 2020-0 Yes 4647 1{tbl} Take 1 Un letitia en-codeine 7-12 tablet by ity of 300-30 mg 00:00: mouth [place] tablet 00 every 4 Medical (four) Branch hours as needed for Pain (scale 7-10). Indication s: acute pain ketorolac 2020-0 Yes [id number] 10mg Take 1 Univers 10 mg 7-12 13752 tablet by ity of tablet 00:00: mouth [place] 00 every 6 Medical (six) Branch hours as needed for Pain (scale 7-10). ketorolac 2020-0 Yes [id number] 10mg Take 1 [facility] 10 mg 7-12 01064 tablet by ity of tablet 00:00: mouth [place] 00 every 6 Medical (six) Branch hours as needed for Pain (scale 7-10). ketorolac 2020-0 Yes [id number] 10mg Take 1 Univers 10 mg 7-12 63660 tablet by ity of tablet 00:00: mouth [place] 00 every 6 Medical (six) Branch hours as needed for Pain (scale 7-10). ketorolac 2020-0 2021- No [id number] 10mg Take 1 Univers 10 mg 7-12 - 98407 tablet by ity of tablet 00:00: 00:00 mouth [place] 00 :00 every 6 Medical (six) Branch hours as needed for Pain (scale 7-10). acetaminoph 2020- No 4647 1{tbl} Take 1 U nivers en-codeine 11-14- tablet by ity of 300-30 mg 00:00: 00:00 mouth [place] tablet 00 :00 every 4 Medical (four) Branch hours as needed for Pain (scale 7-10). Indication s: acute pain acetaminoph 2020- No 4647 1{tbl} Take 1 U nivers en-codeine 11-14 tablet by ity of 300-30 mg 00:00: 00:00 mouth [place] tablet 00 :00 every 4 Medical (four) Branch hours as needed for Pain (scale 7-10). Indication s: acute pain aspirin 81 2020- No [id number] 81mg Take 1 Univers mg chewable 10-26- 9100 tablet by it y of tablet 00:00: 04:59 mouth [place] 00 :00 daily with Medical breakfast Branch for 30 days. tamsulosin 2020- No [id number] .4mg Take 1 Univers 0.4 mg 24 6-25 11- 9100 capsule by ity of hr capsule 00:00: 04:59 mouth [place] 00 :00 daily for Medical 30 days. Branch aspirin 81 2020- No [id number] 81mg Take 1 Univers mg chewable -25 11- 9100 tablet by it y of tablet 00:00: 04:59 mouth [place] 00 :00 daily with Medical breakfast Branch for 30 days. tamsulosin 2020- No [id number] .4mg Take 1 Univers 0.4 mg 24 6-23 -24 9100 capsule by ity of hr capsule 00:00: 04:59 mouth [place] 00 :00 daily for Medical 30 days. Branch aspirin 81 2020- No [id number] 81mg Take 1 Univers mg chewable 6-25 11- 9100 tablet by it y of tablet 00:00: 04:59 mouth [place] 00 :00 daily with Medical breakfast Branch for 30 days. tamsulosin 2020- No [id number] .4mg Take 1 Univers 0.4 mg 24 6-23 -24 9100 capsule by ity of hr capsule 00:00: 04:59 mouth [place] 00 :00 daily for Medical 30 days. Branch aspirin 81 2020- No [id number] 81mg Take 1 Univers mg chewable 6-25 11- 9100 tablet by it y of tablet 00:00: 04:59 mouth [place] 00 :00 daily with Medical breakfast Branch for 30 days. tamsulosin 2020- No [id number] .4mg Take 1 Univers 0.4 mg 24 6-25 11-24 9100 capsule by ity of hr capsule 00:00: 04:59 mouth [place] 00 :00 daily for Medical 30 days. Branch aspirin 81 2020- No [id number] 81mg Take 1 Univers mg chewable 6-25 11- 9100 tablet by it y of tablet 00:00: 04:59 mouth [place] 00 :00 daily with Medical breakfast Branch for 30 days. tamsulosin 2020- No [id number] .4mg Take 1 Univers 0.4 mg 24 6-25 11-24 9100 capsule by ity of hr capsule 00:00: 04:59 mouth [place] 00 :00 daily for Medical 30 days. Branch aspirin 81 2020- No [id number] 81mg Take 1 Univers mg chewable 6-25 11- 9100 tablet by it y of tablet 00:00: 04:59 mouth [place] 00 :00 daily with Medical breakfast Branch for 30 days. tamsulosin 2020- No [id number] .4mg Take 1 Univers 0.4 mg 24 6-25 11-24 9100 capsule by ity of hr capsule 00:00: 04:59 mouth [place] 00 :00 daily for Medical 30 days. Branch aspirin 81 2020- No [id number] 81mg Take 1 Univers mg chewable 6-25 11- 9100 tablet by it y of tablet 00:00: 04:59 mouth [place] 00 :00 daily with Medical breakfast Branch for 30 days. tamsulosin 2020- No [id number] .4mg Take 1 Univers 0.4 mg 24 6-25 11-24 9100 capsule by ity of hr capsule 00:00: 04:59 mouth [place] 00 :00 daily for Medical 30 days. Branch aspirin 81 2020- No [id number] 81mg Take 1 Univers mg chewable 6-25 11- 9100 tablet by it y of tablet 00:00: 04:59 mouth [place] 00 :00 daily with Medical breakfast [place] for 30 days. tamsulosin 2020- No [id number] .4mg Take 1 Univers 0.4 mg 24 6-25 11-24 9100 capsule by ity of hr capsule 00:00: 04:59 mouth [place] 00 :00 daily for Medical 30 days. Branch aspirin 81 2020- No [id number] 81mg Take 1 Univers mg chewable 6-25 11- 9100 tablet by it y of tablet 00:00: 04:59 mouth [place] 00 :00 daily with Medical breakfast [place] for 30 days. tamsulosin 2020- No [id number] .4mg Take 1 Univers 0.4 mg 24 6-25 11-24 9100 capsule by ity of hr capsule 00:00: 04:59 mouth [place] 00 :00 daily for Medical 30 days. Branch aspirin 81 2020- No [id number] 81mg Take 1 Univers mg chewable 6-25 11- 9100 tablet by it y of tablet 00:00: 04:59 mouth [place] 00 :00 daily with Medical breakfast [place] for 30 days. tamsulosin 2020- No [id number] .4mg Take 1 Univers 0.4 mg 24 6-25 11- 9100 capsule by ity of hr capsule 00:00: 04:59 mouth [place] 00 :00 daily for Medical 30 days. Branch aspirin 81 2020- No [id number] 81mg Take 1 Univers mg chewable 6-25 11- 9100 tablet by it y of tablet 00:00: 04:59 mouth [place] 00 :00 daily with Medical breakfast [place] for 30 days. tamsulosin 2020- No [id number] .4mg Take 1 Univers 0.4 mg 24 6-25 11-24 9100 capsule by ity of hr capsule 00:00: 04:59 mouth [place] 00 :00 daily for Medical 30 days. Branch aspirin 81 2020- No [id number] 81mg Take 1 Univers mg chewable 6-25 11- 9100 tablet by it y of tablet 00:00: 04:59 mouth [place] 00 :00 daily with Medical breakfast [place] for 30 days. tamsulosin 2020- No [id number] .4mg Take 1 Univers 0.4 mg 24 6-25 11-24 9100 capsule by ity of hr capsule 00:00: 04:59 mouth [place] 00 :00 daily for Medical 30 days. Branch aspirin 81 2020- No [id number] 81mg Take 1 Univers mg chewable 6-25 11- 9100 tablet by it y of tablet 00:00: 04:59 mouth [place] 00 :00 daily with Medical breakfast [place] for 30 days. tamsulosin 2020- No [id number] .4mg Take 1 Univers 0.4 mg 24 6-25 11-24 9100 capsule by ity of hr capsule 00:00: 04:59 mouth [place] 00 :00 daily for Medical 30 days. Branch aspirin 81 2020- No [id number] 81mg Take 1 Univers mg chewable 6-25 11- 9100 tablet by it y of tablet 00:00: 04:59 mouth [place] 00 :00 daily with Medical breakfast [place] for 30 days. tamsulosin 2020- No [id number] .4mg Take 1 Univers 0.4 mg 24 6-25 11- 9100 capsule by ity of hr capsule 00:00: 04:59 mouth [place] 00 :00 daily for Medical 30 days. Branch aspirin 81 2020- No [id number] 81mg Take 1 Univers mg chewable 10-26- 9100 tablet by it y of tablet 00:00: 04:59 mouth [place] 00 :00 daily with Medical breakfast [place] for 30 days. tamsulosin 2020- No [id number] .4mg Take 1 Univers 0.4 mg 24 -25 11-24 9100 capsule by ity of hr capsule 00:00: 04:59 mouth [place] 00 :00 daily for Medical 30 days. Branch aspirin 81 2020- No [id number] 81mg Take 1 Univers mg chewable 6-25 11- 9100 tablet by it y of tablet 00:00: 04:59 mouth [place] 00 :00 daily with Medical breakfast [place] for 30 days. tamsulosin 2020- No [id number] .4mg Take 1 Univers 0.4 mg 24 6-25 11-24 9100 capsule by ity of hr capsule 00:00: 04:59 mouth [place] 00 :00 daily for Medical 30 days. Branch aspirin 81 2020- No [id number] 81mg Take 1 Univers mg chewable 6-25 11- 9100 tablet by it y of tablet 00:00: 04:59 mouth [place] 00 :00 daily with Medical breakfast Branch for 30 days. tamsulosin 2020- No [id number] .4mg Take 1 Univers 0.4 mg 24 6-25 11-24 9100 capsule by ity of hr capsule 00:00: 04:59 mouth [place] 00 :00 daily for Medical 30 days. Branch aspirin 81 2020- No [id number] 81mg Take 1 Univers mg chewable 6-25 11- 9100 tablet by it y of tablet 00:00: 04:59 mouth [place] 00 :00 daily with Medical breakfast Branch for 30 days. tamsulosin 2020- No [id number] .4mg Take 1 Univers 0.4 mg 24 6-25 11- 9100 capsule by ity of hr capsule 00:00: 04:59 mouth [place] 00 :00 daily for Medical 30 days. Branch aspirin 81 2020- No [id number] 81mg Take 1 Univers mg chewable 10-26- 9100 tablet by it y of tablet 00:00: 04:59 mouth [place] 00 :00 daily with Medical breakfast Branch for 30 days. tamsulosin 2020- No [id number] .4mg Take 1 Univers 0.4 mg 24 6-25 11-24 9100 capsule by ity of hr capsule 00:00: 04:59 mouth [place] 00 :00 daily for Medical 30 days. Branch aspirin 81 2020- No [id number] 81mg Take 1 Univers mg chewable 6-25 11- 9100 tablet by it y of tablet 00:00: 04:59 mouth [place] 00 :00 daily with Medical breakfast Branch for 30 days. tamsulosin 2020- No [id number] .4mg Take 1 Univers 0.4 mg 24 6-25 11-24 9100 capsule by ity of hr capsule 00:00: 04:59 mouth [place] 00 :00 daily for Medical 30 days. Branch aspirin 81 2020- No [id number] 81mg Take 1 Univers mg chewable 10-26- 9100 tablet by it y of tablet 00:00: 04:59 mouth [place] 00 :00 daily with Medical breakfast Branch for 30 days. tamsulosin 2020- No [id number] .4mg Take 1 Univers 0.4 mg 24 6- 9100 capsule by ity of hr capsule 00:00: 04:59 mouth [place] 00 :00 daily for Medical 30 days. Branch aspirin 81 2020- No [id number] 81mg Take 1 Univers mg chewable 10-26- 9100 tablet by it y of tablet 00:00: 04:59 mouth [place] 00 :00 daily with Medical breakfast Branch for 30 days. tamsulosin 2020- No [id number] .4mg Take 1 Univers 0.4 mg 24 6-25 11- 9100 capsule by ity of hr capsule 00:00: 04:59 mouth [place] 00 :00 daily for Medical 30 days. Branch tamsulosin 2020- No [id number] .4mg Take 1 Univers 0.4 mg 24 10-26- 9100 capsule by ity of hr capsule 00:00: 04:59 mouth [place] 00 :00 daily for Medical 30 days. Branch tamsulosin 2020- No [id number] .4mg Take 1 Univers 0.4 mg 24 6- 9100 capsule by ity of hr capsule 00:00: 04:59 mouth [place] 00 :00 daily for Medical 30 days. Branch tamsulosin 2020- No [id number] .4mg Take 1 Univers 0.4 mg 24 10-26-24 9100 capsule by ity of hr capsule 00:00: 04:59 mouth [place] 00 :00 daily for Medical 30 days. Branch aspirin 81 2020- No [id number] 81mg Take 1 Univers mg chewable 10-26- 9100 tablet by it y of tablet 00:00: 00:00 mouth [place] 00 :00 daily with Medical breakfast Branch for 30 days. ketorolac 2020- No 15mg 15 mg, Unive rs (TORADOL) 10-25 Slow IV ity of injection 15:45: 15:41 Push, [place] 15 mg 00 :00 ONCE, 1 Medical dose, [facility] 10/25/20 at 1045, Routine
[employer] team member approving Restricted medication : NATI HUYNH tamsulosin Yes .4mg 0.4 mg, Univ ers (FLOMAX) 10-25 Oral, ity of capsule 0.4 14:00: DAILY, [place] mg 00 First dose Medical on [facility] 10/25/20 at 0900, Until Discontinu ed, Routine spironolact Yes 50mg 50 mg, Univ ers one 10-25 Oral, ity of (ALDACTONE) 14:00: DAILY, [place] tablet 50 00 First dose Medi ramses mg on [facility] 10/25/20 at 0900, Until Discontinu ed, Routine furosemide Yes 80mg 80 mg, Unive rs (LASIX) 10-25 Oral, ity of tablet 80 14:00: QAM+PM, [place] mg 00 First dose Medical on [facility] 10/25/20 at 0900, Until Discontinu ed, Routine enalapril Yes 2.5mg 2.5 mg, Univ ers (VASOTEC) 10-25 Oral, ity of tablet 2.5 14:00: DAILY, [place] mg 00 First dose Medical on [facility] 10/25/20 at 0900, Until Discontinu ed, Routine clopidogreL Yes 75mg 75 mg, Univ ers (PLAVIX) 10-25 Oral, ity of tablet 75 14:00: DAILY, [place] mg 00 First dose Medical on [facility] 10/25/20 at 0900, Until Discontinu ed, Routine magnesium 2020- No 2g 2 g, IV Univ ers sulfate in 10-25 Piggyback, it y of water 2 06:00: 05:04 ONCE, 1 [place] gram/50 mL 00 :00 dose, [facility] Medi ramses (4 %) 10/25/20 at Branch infusion 2 0100, g Routine magnesium Yes 400mg 400 mg, Univ ers oxide 10-25 Oral, BID, ity of (MAG-OX 04:45: First dose [place] 400) tablet 00 on [facility] Medica l 400 mg 10/24/20 at Branch 2345, Until Discontinu ed, Routine atorvastati 2020-0 Yes 40mg 40 mg, Univ ers n (LIPITOR) 6-22 Oral, QHS, it y of tablet 40 02:00: First dose [place] mg 00 on [facility] Medical 10/24/20 at Branch 2100, Until Discontinu ed, Routine nicotine 2020-0 Yes 1{patch 1 Patch, Un letitia (NICODERM) 10-25 } Topical, ity o f 21 mg/24 hr 01:15: Administer [place] patch 1 00 over 24 Medical Patch Hours, Branch Q24H, First dose on Sat10/24/20 at 2015, Until Discontinu ed, Routine metoprolol 2020-0 Yes 25mg 25 mg, Unive rs succinate 6-22 Oral, BID, ity of XL (TOPROL 01:00: First dose [place] XL) tablet 00 on [facility] Medical 25 mg 10/24/20 at Branch 2000, Until Discontinu ed, Routine isosorbide 2020-0 Yes 30mg 30 mg, Unive rs mononitrate - Oral, BID, it y of (IMDUR) 24 01:00: First dose [place] hr tablet 00 on [facility] Medical 30 mg 10/24/20 at Branch 2000, Until Discontinu ed, Routine aspirin 2020-0 Yes 81mg 81 mg, Univers chewable 22 Oral, QAM ity of tablet 81 00:30: WITH [place] mg 00 BREAKFAST, Medical First dose Branch on Sat10/24/20 at 1930, Until Discontinu ed, Routine magnesium 2020-0 Yes [id number] 400mg Take 400 Univers oxide 420 6-22 9100 mg by ity of mg Tab 00:00: mouth 2 00 (two) Medical times Branch daily. magnesium 2021-0 Yes [id number] 400mg Take 400 Univers oxide 420 6-22 9100 mg by ity of mg Tab 00:00: mouth 2 00 (two) Medical times Branch daily. magnesium 2021-0 Yes [id number] 400mg Take 400 Univers oxide 420 6-22 9100 mg by ity of mg Tab 00:00: mouth 2 00 (two) Medical times Branch daily. magnesium 2021-0 Yes [id number] 400mg Take 400 Univers oxide 420 6-22 9100 mg by ity of mg Tab 00:00: mouth 2 (two) Medical times Branch daily. magnesium 1-0 Yes [id number] 400mg Take 400 Univers oxide 420 6-22 9100 mg by ity of mg Tab 00:00: mouth 2 (two) Medical times Branch daily. magnesium 1-0 Yes [id number] 400mg Take 400 Univers oxide 420 6-22 9100 mg by ity of mg Tab 00:00: mouth 2 (two) Medical times Branch daily. magnesium 2020-0 Yes [id number] 400mg Take 400 Univers oxide 420 6-22 9100 mg by ity of mg Tab 00:00: mouth 2 (two) Medical times Branch daily. magnesium 2020-0 Yes [id number] 400mg Take 400 Univers oxide 420 6-22 9100 mg by ity of mg Tab 00:00: mouth 2 (two) Medical times Branch daily. magnesium 2020-0 Yes [id number] 400mg Take 400 Univers oxide 420 6-22 9100 mg by ity of mg Tab 00:00: mouth (two) Medical times Branch daily. magnesium 2020-0 Yes [id number] 400mg Take 400 Univers oxide 420 6-22 9100 mg by ity of mg Tab 00:00: mouth 2 (two) Medical times Branch daily. magnesium 2020-0 Yes [id number] 400mg Take 400 Univers oxide 420 6-22 9100 mg by ity of mg Tab 00:00: mouth 2 (two) Medical times Branch daily. magnesium 2020-0 Yes [id number] 400mg Take 400 Univers oxide 420 6-22 9100 mg by ity of mg Tab 00:00: mouth 2 (two) Medical times Branch daily. magnesium 1-0 Yes [id number] 400mg Take 400 Univers oxide 420 6-22 9100 mg by ity of mg Tab 00:00: mouth 2 [place] (two) Medical times Branch daily. magnesium 1-0 Yes [id number] 400mg Take 400 Univers oxide 420 6-22 9100 mg by ity of mg Tab 00:00: mouth 2 (two) Medical times Branch daily. magnesium 2020-0 Yes [id number] 400mg Take 400 Univers oxide 420 6-22 9100 mg by ity of mg Tab 00:00: mouth 2 (two) Medical times Branch daily. magnesium 1-0 Yes [id number] 400mg Take 400 Univers oxide 420 6-22 9100 mg by ity of mg Tab 00:00: mouth 2 (two) Medical times Branch daily. magnesium 1-0 Yes [id number] 400mg Take 400 Univers oxide 420 6-22 9100 mg by ity of mg Tab 00:00: mouth 2 (two) Medical times Branch daily. magnesium 2020-0 Yes [id number] 400mg Take 400 Univers oxide 420 6-22 9100 mg by ity of mg Tab 00:00: mouth 2 (two) Medical times Branch daily. magnesium 2020-0 Yes [id number] 400mg Take 400 Univers oxide 420 6-22 9100 mg by ity of mg Tab 00:00: mouth 2 (two) Medical times Branch daily. magnesium 2020-0 Yes [id number] 400mg Take 400 Univers oxide 420 6-22 9100 mg by ity of mg Tab 00:00: mouth (two) Medical times Branch daily. magnesium 2020-0 Yes [id number] 400mg Take 400 Univers oxide 420 6-22 9100 mg by ity of mg Tab 00:00: mouth 2 (two) Medical times Branch daily. magnesium 2020-0 Yes [id number] 400mg Take 400 Univers oxide 420 6-22 9100 mg by ity of mg Tab 00:00: mouth 2 (two) Medical times Branch daily. magnesium 2020-0 Yes [id number] 400mg Take 400 Univers oxide 420 6-22 9100 mg by ity of mg Tab 00:00: mouth (two) Medical times Branch daily. magnesium 2021-0 Yes [id number] 400mg Take 400 Univers oxide 420 6-22 9100 mg by ity of mg Tab 00:00: mouth 2 (two) Medical times Branch daily. magnesium 2021-0 Yes [id number] 400mg Take 400 Univers oxide 420 6-22 9100 mg by ity of mg Tab 00:00: mouth 2 (two) Medical times Branch daily. magnesium 2021-0 Yes [id number] 400mg Take 400 Univers oxide 420 6-22 9100 mg by ity of mg Tab 00:00: mouth 2 (two) Medical times Branch daily. magnesium 1-0 Yes [id number] 400mg Take 400 Univers oxide 420 6-22 9100 mg by ity of mg Tab 00:00: mouth 2 (two) Medical times Branch daily. magnesium 1-0 Yes [id number] 400mg Take 400 Univers oxide 420 6-22 9100 mg by ity of mg Tab 00:00: mouth 2 (two) Medical times Branch daily. magnesium 2020-0 Yes [id number] 400mg Take 400 Univers oxide 420 6-22 9100 mg by ity of mg Tab 00:00: mouth 2 (two) Medical times Branch daily. magnesium 2020-0 Yes [id number] 400mg Take 400 Univers oxide 420 6-22 9100 mg by ity of mg Tab 00:00: mouth (two) Medical times Branch daily. magnesium 2020-0 Yes [id number] 400mg Take 400 Univers oxide 420 6-22 9100 mg by ity of mg Tab 00:00: mouth (two) Medical times Branch daily. magnesium 2020-0 Yes [id number] 400mg Take 400 Univers oxide 420 6-22 9100 mg by ity of mg Tab 00:00: mouth (two) Medical times Branch daily. magnesium 2020-0 Yes [id number] 400mg Take 400 Univers oxide 420 6-22 9100 mg by ity of mg Tab 00:00: mouth (two) Medical times Branch daily. magnesium 1-0 Yes [id number] 400mg Take 400 Univers oxide 420 6-22 9100 mg by ity of mg Tab 00:00: mouth (two) Medical times Branch daily. magnesium 1-0 Yes [id number] 400mg Take 400 [facility] oxide 420 6-22 9100 mg by ity of mg Tab 00:00: mouth 2 (two) Medical times Branch daily. magnesium 2021-0 Yes [id number] 400mg Take 400 Univers oxide 420 6-22 9100 mg by ity of mg Tab 00:00: mouth 2 (two) Medical times Branch daily. magnesium 1-0 Yes [id number] 400mg Take 400 Univers oxide 420 6-22 9100 mg by ity of mg Tab 00:00: mouth 2 (two) Medical times Branch daily. magnesium 2020-0 Yes [id number] 400mg Take 400 [facility] oxide 420 6-22 9100 mg by ity of mg Tab 00:00: mouth 2 (two) Medical times Branch daily. magnesium 2020-0 Yes [id number] 400mg Take 400 [facility] oxide 420 6-22 9100 mg by ity of mg Tab 00:00: mouth 2 (two) Medical times Branch daily. magnesium 2020-0 Yes [id number] 400mg Take 400 [facility] oxide 420 6-22 9100 mg by ity of mg Tab 00:00: mouth 2 (two) Medical times Branch daily. magnesium 2020-0 Yes [id number] 400mg Take 400 [facility] oxide 420 6-22 9100 mg by ity of mg Tab 00:00: mouth (two) Medical times Branch daily. magnesium 2020-0 Yes [id number] 400mg Take 400 [facility] oxide 420 6-22 9100 mg by ity of mg Tab 00:00: mouth (two) Medical times Branch daily. magnesium 2020-0 Yes [id number] 400mg Take 400 [facility] oxide 420 6-22 9100 mg by ity of mg Tab 00:00: mouth (two) Medical times Branch daily. magnesium 2020-0 Yes [id number] 400mg Take 400 [facility] oxide 420 6-22 9100 mg by ity of mg Tab 00:00: mouth 2 (two) Medical times Branch daily. magnesium 2020-0 Yes [id number] 400mg Take 400 [facility] oxide 420 6-22 9100 mg by ity of mg Tab 00:00: mouth (two) Medical times Branch daily. magnesium 2020-0 Yes [id number] 400mg Take 400 [facility] oxide 420 6-22 9100 mg by ity of mg Tab 00:00: mouth 2 (two) Medical times Branch daily. magnesium 2020-0 Yes [id number] 400mg Take 400 [facility] oxide 420 6-22 9100 mg by ity of mg Tab 00:00: mouth 2 (two) Medical times Branch daily. isosorbide 2021-0 2021- No [id number] 30mg Take 1 [facility] mononitrate 6-22 07-23 9100 tablet by it y of 30 mg 24 hr 00:00: 04:59 mouth 2 [place] tablet 00 :00 (two) Medical times Branch daily for 30 days. nicotine 2020- No [id number] 1{patch Apply 1 Univers mg/24 hr 6-24 11- 9100 } Patch to ity of patch 00:00: 04:59 area(s) [place] 00 :00 every 24 Medical ([facility] ur) hours for 30 days. isosorbide 2020- No [id number] 30mg Take 1 [facility] mononitrate 10-25- 9100 tablet by it y of 30 mg 24 hr 00:00: 04:59 mouth 2 [place] tablet 00 :00 (two) Medical times [place] daily for 30 days. nicotine 2020- No [id number] 1{patch Apply 1 [facility] mg/24 hr 6-23 9100 } Patch to ity of patch 00:00: 04:59 area(s) [place] 00 :00 every 24 Medical ([facility] ur) hours for 30 days. isosorbide 2020- No [id number] 30mg Take 1 [facility] mononitrate 10-25- 9100 tablet by it y of 30 mg 24 hr 00:00: 04:59 mouth 2 [place] tablet 00 :00 (two) Medical times Branch daily for 30 days. nicotine 2020- No [id number] 1{patch Apply 1 [facility] mg/24 hr 10-25- 9100 } Patch to ity of patch 00:00: 04:59 area(s) [place] 00 :00 every 24 Medical ([facility] ur) hours for 30 days. isosorbide 2020- No [id number] 30mg Take 1 [facility] mononitrate 6-24 11-23 9100 tablet by it y of 30 mg 24 hr 00:00: 04:59 mouth 2 [place] tablet 00 :00 (two) Medical times Branch daily for 30 days. nicotine 2020- No [id number] 1{patch Apply 1 [facility] mg/24 hr 6-22 07-23 9100 } Patch to ity of patch 00:00: 04:59 area(s) [place] 00 :00 every 24 Medical ([facility] ur) hours for 30 days. isosorbide 2020- No [id number] 30mg Take 1 [facility] mononitrate 6-22 07-23 9100 tablet by it y of 30 mg 24 hr 00:00: 04:59 mouth 2 [place] tablet 00 :00 (two) Medical times [place] daily for 30 days. nicotine 2020- No [id number] 1{patch Apply 1 [facility] mg/24 hr 6-22 07-23 9100 } Patch to ity of patch 00:00: 04:59 area(s) [place] 00 :00 every 24 Medical ([facility] ur) hours for 30 days. isosorbide 2020- No [id number] 30mg Take 1 [facility] mononitrate 6-22 07-23 9100 tablet by it y of 30 mg 24 hr 00:00: 04:59 mouth 2 [place] tablet 00 :00 (two) Medical times [place] daily for 30 days. nicotine 2020- No [id number] 1{patch Apply 1 [facility] mg/24 hr 6-22 07-23 9100 } Patch to ity of patch 00:00: 04:59 [facility](s) [place] 00 :00 every 24 Medical ([facility] Branch ur) hours for 30 days. isosorbide 2020- No [id number] 30mg Take 1 [facility] mononitrate 6-22 07-23 9100 tablet by it y of 30 mg 24 hr 00:00: 04:59 mouth 2 [place] tablet 00 :00 (two) Medical times [place] daily for 30 days. nicotine 2020- No [id number] 1{patch Apply 1 [facility] mg/24 hr 6-22 07-23 9100 } Patch to ity of patch 00:00: 04:59 area(s) [place] 00 :00 every 24 Medical ([facility] Branch ur) hours for 30 days. isosorbide 2020- No [id number] 30mg Take 1 [facility] mononitrate 6-22 07-23 9100 tablet by it y of 30 mg 24 hr 00:00: 04:59 mouth 2 [place] tablet 00 :00 (two) Medical times Branch daily for 30 days. nicotine 2020- No [id number] 1{patch Apply 1 [facility] mg/24 hr 6- 9100 } Patch to ity of patch 00:00: 04:59 area(s) [place] 00 :00 every 24 Medical ([facility] ur) hours for 30 days. isosorbide 2020- No [id number] 30mg Take 1 [facility] mononitrate 6- 9100 tablet by it y of 30 mg 24 hr 00:00: 04:59 mouth 2 [place] tablet 00 :00 (two) Medical times Branch daily for 30 days. nicotine 2020- No [id number] 1{patch Apply 1 [facility] mg/24 hr 6- 9100 } Patch to ity of patch 00:00: 04:59 area(s) [place] 00 :00 every 24 Medical ([facility] Branch ur) hours for 30 days. isosorbide 2020- No [id number] 30mg Take 1 [facility] mononitrate 6- 9100 tablet by it y of 30 mg 24 hr 00:00: 04:59 mouth 2 [place] tablet 00 :00 (two) Medical times Branch daily for 30 days. nicotine 2020- No [id number] 1{patch Apply 1 [facility] mg/24 hr 6-23 9100 } Patch to ity of patch 00:00: 04:59 area(s) [place] 00 :00 every 24 Medical ([facility] ur) hours for 30 days. isosorbide 2020- No [id number] 30mg Take 1 [facility] mononitrate 6-23 9100 tablet by it y of 30 mg 24 hr 00:00: 04:59 mouth 2 [place] tablet 00 :00 (two) Medical times Branch daily for 30 days. nicotine 2020- No [id number] 1{patch Apply 1 [facility] mg/24 hr 6-22 07-23 9100 } Patch to ity of patch 00:00: 04:59 area(s) [place] 00 :00 every 24 Medical ([facility] ur) hours for 30 days. isosorbide 2020- No [id number] 30mg Take 1 [facility] mononitrate 6-24 11- 9100 tablet by it y of 30 mg 24 hr 00:00: 04:59 mouth 2 [place] tablet 00 :00 (two) Medical times Branch daily for 30 days. nicotine 2020- No [id number] 1{patch Apply 1 [facility] mg/24 hr 6-24 11-23 9100 } Patch to ity of patch 00:00: 04:59 area(s) [place] 00 :00 every 24 Medical ([facility] ur) hours for 30 days. isosorbide 2020- No [id number] 30mg Take 1 [facility] mononitrate 6-24 11- 9100 tablet by it y of 30 mg 24 hr 00:00: 04:59 mouth 2 [place] tablet 00 :00 (two) Medical times [place] daily for 30 days. nicotine 2020- No [id number] 1{patch Apply 1 [facility] mg/24 hr 6- 9100 } Patch to ity of patch 00:00: 04:59 area(s) [place] 00 :00 every 24 Medical ([facility] ur) hours for 30 days. isosorbide 2020- No [id number] 30mg Take 1 [facility] mononitrate 6- 9100 tablet by it y of 30 mg 24 hr 00:00: 04:59 mouth 2 [place] tablet 00 :00 (two) Medical times Branch daily for 30 days. nicotine 2020- No [id number] 1{patch Apply 1 [facility] mg/24 hr 6-23 9100 } Patch to ity of patch 00:00: 04:59 area(s) [place] 00 :00 every 24 Medical ([facility] ur) hours for 30 days. isosorbide 2020- No [id number] 30mg Take 1 [facility] mononitrate 6-24 11-23 9100 tablet by it y of 30 mg 24 hr 00:00: 04:59 mouth 2 [place] tablet 00 :00 (two) Medical times Branch daily for 30 days. nicotine 2020- No [id number] 1{patch Apply 1 [facility] mg/24 hr 6-22 07-23 9100 } Patch to ity of patch 00:00: 04:59 area(s) [place] 00 :00 every 24 Medical ([facility] ur) hours for 30 days. isosorbide 2020- No [id number] 30mg Take 1 [facility] mononitrate 6-22 07-23 9100 tablet by it y of 30 mg 24 hr 00:00: 04:59 mouth 2 [place] tablet 00 :00 (two) Medical times Branch daily for 30 days. nicotine 2020- No [id number] 1{patch Apply 1 [facility] mg/24 hr 6-22 07-23 9100 } Patch to ity of patch 00:00: 04:59 area(s) [place] 00 :00 every 24 Medical ([facility] Branch ur) hours for 30 days. isosorbide 2020- No [id number] 30mg Take 1 [facility] mononitrate 6-22 07-23 9100 tablet by it y of 30 mg 24 hr 00:00: 04:59 mouth 2 [place] tablet 00 :00 (two) Medical times [place] daily for 30 days. nicotine 2020- No [id number] 1{patch Apply 1 [facility] mg/24 hr 6-22 07-23 9100 } Patch to ity of patch 00:00: 04:59 area(s) [place] 00 :00 every 24 Medical ([facility] Branch ur) hours for 30 days. isosorbide 2020- No [id number] 30mg Take 1 [facility] mononitrate 6-22 07-23 9100 tablet by it y of 30 mg 24 hr 00:00: 04:59 mouth 2 [place] tablet 00 :00 (two) Medical times Branch daily for 30 days. nicotine 2020- No [id number] 1{patch Apply 1 [facility] mg/24 hr 6-22 07-23 9100 } Patch to ity of patch 00:00: 04:59 area(s) [place] 00 :00 every 24 Medical ([facility] Branch ur) hours for 30 days. isosorbide 2020- No [id number] 30mg Take 1 [facility] mononitrate 6-22 07-23 9100 tablet by it y of 30 mg 24 hr 00:00: 04:59 mouth 2 [place] tablet 00 :00 (two) Medical times Branch daily for 30 days. nicotine 2020- No [id number] 1{patch Apply 1 [facility] mg/24 hr 6-24 11- 9100 } Patch to ity of patch 00:00: 04:59 area(s) [place] 00 :00 every 24 Medical ([facility] ur) hours for 30 days. isosorbide 2020- No [id number] 30mg Take 1 [facility] mononitrate 6-24 11-23 9100 tablet by it y of 30 mg 24 hr 00:00: 04:59 mouth 2 [place] tablet 00 :00 (two) Medical times Branch daily for 30 days. nicotine 2020- No [id number] 1{patch Apply 1 [facility] mg/24 hr 6-24 11-23 9100 } Patch to ity of patch 00:00: 04:59 area(s) [place] 00 :00 every 24 Medical ([facility] Branch ur) hours for 30 days. isosorbide 2020- No [id number] 30mg Take 1 [facility] mononitrate 6-24 11-23 9100 tablet by it y of 30 mg 24 hr 00:00: 04:59 mouth 2 [place] tablet 00 :00 (two) Medical times Branch daily for 30 days. nicotine 2020- No [id number] 1{patch Apply 1 [facility] mg/24 hr 6-24 11-23 9100 } Patch to ity of patch 00:00: 04:59 area(s) [place] 00 :00 every 24 Medical ([facility] Branch ur) hours for 30 days. isosorbide 2020- No [id number] 30mg Take 1 [facility] mononitrate 6 07-23 9100 tablet by it y of 30 mg 24 hr 00:00: 04:59 mouth 2 [place] tablet 00 :00 (two) Medical times Branch daily for 30 days. nicotine 2020- No [id number] 1{patch Apply 1 [facility] mg/24 hr 6-22 07-23 9100 } Patch to ity of patch 00:00: 04:59 area(s) [place] 00 :00 every 24 Medical ([facility] Branch ur) hours for 30 days. nicotine 2020- No [id number] 1{patch Apply 1 [facility] mg/24 hr 10-2500 } Patch to ity of patch 00:00: 04:59 area(s) [place] 00 :00 every 24 Medical ([facility] ur) hours for 30 days. isosorbide 2020- No [id number] 30mg Take 1 [facility] mononitrate 10-25 tablet by it y of 30 mg 24 hr 00:00: 00:00 mouth 2 [place] tablet 00 :00 (two) Medical times Branch daily for 30 days. HYDROcodone No 4647 1{tbl} Take 1 U nivers -acetaminop 6-22 06-30 tablet by it y of hen 5-325 00:00: 04:59 mouth [place] mg tablet 00 :00 every 6 Medical (six) Branch hours as needed for Pain (scale 7-10) for up to 7 days. Indication s: acute pain HYDROcodone No 4647 1{tbl} Take 1 U nivers -acetaminop 6-22 06-30 tablet by it y of hen 5-325 00:00: 04:59 mouth [place] mg tablet 00 :00 every 6 Medical (six) Branch hours as needed for Pain (scale 7-10) for up to 7 days. Indication s: acute pain HYDROcodone No 4647 1{tbl} Take 1 U nivers -acetaminop 6-22 06-30 tablet by it y of hen 5-325 00:00: 04:59 mouth [place] mg tablet 00 :00 every 6 Medical (six) Branch hours as needed for Pain (scale 7-10) for up to 7 days. Indication s: acute pain HYDROcodone No 4647 1{tbl} Take 1 U nivers -acetaminop 6-22 06-30 tablet by it y of hen 5-325 00:00: 04:59 mouth [place] mg tablet 00 :00 every 6 Medical (six) Branch hours as needed for Pain (scale 7-10) for up to 7 days. Indication s: acute pain HYDROcodone No 4647 1{tbl} Take 1 U nivers -acetaminop 6-22 06-30 tablet by it y of hen 5-325 00:00: 04:59 mouth [place] mg tablet 00 :00 every 6 Medical (six) Branch hours as needed for Pain (scale 7-10) for up to 7 days. Indication s: acute pain enoxaparin 0 Yes 30mg 30 mg, Unive rs (LOVENOX) 10-24 Subcutaneo ity of injection 22:00: us, DAILY, [place] 30 mg 00 First dose Medical on [facility] 10/24/20 at 1700, Until Discontinu ed, Routine ondansetron 0 202- No 4mg 4 mg, Slow Univers (ZOFRAN 10-24 IV Push, ity of (PF)) 20:00: 19:37 ONCE, 1 [place] injection 4 00 :00 dose, [facility] Med ical mg 10/24/20 at Branch 1500, ZAY morpHINE 2020- No 4mg 4 mg, Slow Un [place] injection 4 10-24 IV Push, ity of mg 20:00: 19:37 ONCE, 1 [place] 00 :00 dose, [facility] 10/24/20 at Branch 1500, STAT KCL Yes 40meq 40 mEq, Univers (KLOR-CON 10-24 Oral, ity of M20) tablet 19:30: DAILY, [place] 40 mEq 00 First dose Medical on [facility] 10/24/20 at 1430, Until Discontinu ed, Routine nitroglycer Yes .4mg 0.4 mg, Uni vers in 10-24 Sublingual ity of (NITROSTAT) 19:28: , Q5MIN [place] as sublingual 14 PRN, Medical tablet 0.4 Starting Branc h mg [facility] 10/24/20 at 1428, Until Discontinu ed, Routine, Chest pain morpHINE 0 2020- No 2mg 2 mg, Slow Un [place] injection 2 10-24 IV Push, ity of mg 19:28: 19:27 Q4HPRN, [place] 06 :06 Starting Medical [facility] 10/24/20 at 1428, Until Sat10/25/20 at 1427, Routine, Pain (scale 7-10), Chest pain acetaminoph Yes 650mg 650 mg, [place] en 10-24 Oral, ity of (TYLENOL) 19:27: Q6HPRN, [place] tablet 650 58 Starting Medic al mg [facility] Branch 10/24/20 at 1427, Until Discontinu ed, Routine, Pain (scale 1-3) aspirin No 325mg 325 mg, Unive rs tablet 325 10-24 Oral, ity of mg 19:00: 17:57 ONCE, 1 [place] 00 :00 dose, [facility] Medical 10/24/20 at Branch 1400, STAT atorvastati Yes [id number] 40mg Take 1 [facility] n 40 mg 3-12 tablet by ity of tablet 00:00: mouth at [place] 00 bedtime. Medical Branch clopidogreL Yes [id number] 75mg Take 1 [facility] 75 mg 3-12 tablet by ity of tablet 00:00: mouth [place] 00 daily. Medical Branch enalapril Yes 2.5mg Take 1 Unive rs 2.5 mg 3-12 tablet by ity of tablet 00:00: mouth [place] 00 daily. Medical Branch furosemide Yes [id number] 80mg Take 1 U nivers 80 mg 3-12 tablet by ity of tablet 00:00: mouth [place] 00 every Medical morning Branch and evening. metoprolol Yes [id number] 25mg Take 1 U nivers succinate 3-12 tablet by ity o f XL 25 mg 24 00:00: mouth 2 [place] hr tablet 00 (two) Medical times Branch daily. spironolact Yes [id number] 50mg Take 1 [facility] one 50 mg 3-12 tablet by ity o f tablet 00:00: mouth [place] 00 daily. Medical Branch KCL 20 mEq Yes [id number] 40meq Take 2 [facility] tablet 3-12 tablets by ity of 00:00: mouth [place] 00 daily. Medical Branch nitroglycer Yes [id number] .4mg Place 1 [facility] in 0.4 mg 3-12 tablet ity of sublingual 00:00: under the [place] tablet 00 tongue Medical every 5 Branch (five) minutes as needed for Chest pain. atorvastati Yes [id number] 40mg Take 1 [facility] n 40 mg 3-12 tablet by ity of tablet 00:00: mouth at [place] 00 bedtime. Medical Branch clopidogreL 2021-0 Yes [id number] 75mg Take 1 [facility] 75 mg 3-12 tablet by ity of tablet 00:00: mouth [place] 00 daily. Medical Branch enalapril 2020-0 Yes 2.5mg Take 1 Unive rs 2.5 mg 3-12 tablet by ity of tablet 00:00: mouth [place] 00 daily. Medical Branch furosemide 2020-0 Yes [id number] 80mg Take 1 U nivers 80 mg 3-12 tablet by ity of tablet 00:00: mouth [place] 00 every Medical morning Branch and evening. metoprolol 2020-0 Yes [id number] 25mg Take 1 U nivers succinate 3-12 tablet by ity o f XL 25 mg 24 00:00: mouth 2 [place] hr tablet 00 (two) Medical times Branch daily. spironolact 0 Yes [id number] 50mg Take 1 [facility] one 50 mg 3-12 tablet by ity o f tablet 00:00: mouth [place] 00 daily. Medical Branch KCL 20 mEq 2020-0 Yes [id number] 40meq Take 2 [facility] tablet 3-12 tablets by ity of 00:00: mouth [place] 00 daily. Medical Branch nitroglycer [id number] 1 [facility] in 0.4 mg 3-12 tablet ity of sublingual 00:00: under the [place] tablet 00 tongue Medical every 5 Branch (five) minutes as needed for Chest pain. atorvastati 0 Yes [id number] 40mg Take 1 [facility] n 40 mg 3-12 tablet by ity of tablet 00:00: mouth at [place] 00 bedtime. Medical Branch clopidogreL 2020-0 Yes [id number] 75mg Take 1 [facility] 75 mg 3-12 tablet by ity of tablet 00:00: mouth [place] 00 daily. Medical Branch enalapril 2020-0 Yes 2.5mg Take 1 Unive rs 2.5 mg 3-12 tablet by ity of tablet 00:00: mouth [place] 00 daily. Medical Branch furosemide 2020-0 Yes [id number] 80mg Take 1 U nivers 80 mg 3-12 tablet by ity of tablet 00:00: mouth [place] 00 every Medical morning Branch and evening. metoprolol 2020-0 Yes [id number] 25mg Take 1 U nivers succinate 3-12 tablet by ity o f XL 25 mg 24 00:00: mouth 2 [place] hr tablet 00 (two) Medical times Branch daily. spironolact 0 Yes [id number] 50mg Take 1 [facility] one 50 mg 3-12 tablet by ity o f tablet 00:00: mouth [place] 00 daily. Medical Branch KCL 20 mEq 0 Yes [id number] 40meq Take 2 [facility] tablet 3-12 tablets by ity of 00:00: mouth [place] 00 daily. Medical Branch nitroglycer Yes [id number] .4mg Place 1 [facility] in 0.4 mg 3-12 tablet ity of sublingual 00:00: under the [place] tablet 00 tongue Medical every 5 Branch (five) minutes as needed for Chest pain. atorvastati Yes [id number] 40mg Take 1 [facility] n 40 mg 3-12 tablet by ity of tablet 00:00: mouth at [place] 00 bedtime. Medical Branch clopidogreL Yes [id number] 75mg Take 1 [facility] 75 mg 3-12 tablet by ity of tablet 00:00: mouth [place] 00 daily. Medical Branch enalapril Yes 2.5mg Take 1 Unive rs 2.5 mg 3-12 tablet by ity of tablet 00:00: mouth [place] 00 daily. Medical Branch furosemide Yes [id number] 80mg Take 1 U nivers 80 mg 3-12 tablet by ity of tablet 00:00: mouth [place] 00 every Medical morning Branch and evening. metoprolol Yes [id number] 25mg Take 1 U nivers succinate 3-12 tablet by ity o f XL 25 mg 24 00:00: mouth 2 [place] hr tablet 00 (two) Medical times Branch daily. spironolact 0 Yes [id number] 50mg Take 1 [facility] one 50 mg 3-12 tablet by ity o f tablet 00:00: mouth [place] 00 daily. Medical Branch KCL 20 mEq 2020-0 Yes [id number] 40meq Take 2 [facility] tablet 3-12 tablets by ity of 00:00: mouth [place] 00 daily. Medical Branch nitroglycer Yes [id number] .4mg Place 1 [facility] in 0.4 mg 3-12 tablet ity of sublingual 00:00: under the [place] tablet 00 tongue Medical every 5 Branch (five) minutes as needed for Chest pain. atorvastati 0 Yes [id number] 40mg Take 1 [facility] n 40 mg 3-12 tablet by ity of tablet 00:00: mouth at [place] 00 bedtime. Medical Branch clopidogreL 2020-0 Yes [id number] 75mg Take 1 [facility] 75 mg 3-12 tablet by ity of tablet 00:00: mouth [place] 00 daily. Medical Branch enalapril 2020-0 Yes 2.5mg Take 1 Unive rs 2.5 mg 3-12 tablet by ity of tablet 00:00: mouth [place] 00 daily. Medical Branch furosemide 2020-0 Yes [id number] 80mg Take 1 U nivers 80 mg 3-12 tablet by ity of tablet 00:00: mouth [place] 00 every Medical morning Branch and evening. metoprolol 2020-0 Yes [id number] 25mg Take 1 U nivers succinate 3-12 tablet by ity o f XL 25 mg 24 00:00: mouth 2 [place] hr tablet 00 (two) Medical times Branch daily. spironolact 2020-0 Yes [id number] 50mg Take 1 [facility] one 50 mg 3-12 tablet by ity o f tablet 00:00: mouth [place] 00 daily. Medical Branch KCL 20 mEq 2020-0 Yes [id number] 40meq Take 2 [facility] tablet 3-12 tablets by ity of 00:00: mouth [place] 00 daily. Medical Branch nitroglycer 2020-[id number] 1 [facility] in 0.4 mg 3-12 tablet ity of sublingual 00:00: under the [place] tablet 00 tongue Medical every 5 Branch (five) minutes as needed for Chest pain. atorvastati 0 Yes [id number] 40mg Take 1 [facility] n 40 mg 3-12 tablet by ity of tablet 00:00: mouth at [place] 00 bedtime. Medical Branch clopidogreL 2020-0 Yes [id number] 75mg Take 1 [facility] 75 mg 3-12 tablet by ity of tablet 00:00: mouth [place] 00 daily. Medical Branch enalapril 2020-0 Yes 2.5mg Take 1 Unive rs 2.5 mg 3-12 tablet by ity of tablet 00:00: mouth [place] 00 daily. Medical Branch furosemide 2020-0 Yes [id number] 80mg Take 1 U nivers 80 mg 3-12 tablet by ity of tablet 00:00: mouth [place] 00 every Medical morning Branch and evening. metoprolol 2020-0 Yes [id number] 25mg Take 1 U nivers succinate 3-12 tablet by ity o f XL 25 mg 24 00:00: mouth 2 [place] hr tablet 00 (two) Medical times Branch daily. spironolact 2020-0 Yes [id number] 50mg Take 1 [facility] one 50 mg 3-12 tablet by ity o f tablet 00:00: mouth [place] 00 daily. Medical Branch KCL 20 mEq 2020-0 Yes [id number] 40meq Take 2 [facility] tablet 3-12 tablets by ity of 00:00: mouth [place] 00 daily. Medical Branch nitroglycer [id number] 1 [facility] in 0.4 mg 3-12 tablet ity of sublingual 00:00: under the [place] tablet 00 tongue Medical every 5 Branch (five) minutes as needed for Chest pain. atorvastati Yes [id number] 40mg Take 1 [facility] n 40 mg 3-12 tablet by ity of tablet 00:00: mouth at [place] 00 bedtime. Medical Branch clopidogreL 0 Yes [id number] 75mg Take 1 [facility] 75 mg 3-12 tablet by ity of tablet 00:00: mouth [place] 00 daily. Medical Branch enalapril 0 Yes 2.5mg Take 1 Unive rs 2.5 mg 3-12 tablet by ity of tablet 00:00: mouth [place] 00 daily. Medical Branch furosemide 2020-0 Yes [id number] 80mg Take 1 U nivers 80 mg 3-12 tablet by ity of tablet 00:00: mouth [place] 00 every Medical morning Branch and evening. metoprolol 2020-0 Yes [id number] 25mg Take 1 U nivers succinate 3-12 tablet by ity o f XL 25 mg 24 00:00: mouth 2 [place] hr tablet 00 (two) Medical times Branch daily. spironolact 2020-0 Yes [id number] 50mg Take 1 [facility] one 50 mg 3-12 tablet by ity o f tablet 00:00: mouth [place] 00 daily. Medical Branch KCL 20 mEq 2020-0 Yes [id number] 40meq Take 2 [facility] tablet 3-12 tablets by ity of 00:00: mouth [place] 00 daily. Medical Branch nitroglycer 2020-[id number] 1 [facility] in 0.4 mg 3-12 tablet ity of sublingual 00:00: under the [place] tablet 00 tongue Medical every 5 Branch (five) minutes as needed for Chest pain. atorvastati 2020-0 Yes [id number] 40mg Take 1 [facility] n 40 mg 3-12 tablet by ity of tablet 00:00: mouth at [place] 00 bedtime. Medical Branch clopidogreL 2020-0 Yes [id number] 75mg Take 1 [facility] 75 mg 3-12 tablet by ity of tablet 00:00: mouth [place] 00 daily. Medical Branch enalapril 2020-0 Yes 2.5mg Take 1 Unive rs 2.5 mg 3-12 tablet by ity of tablet 00:00: mouth [place] 00 daily. Medical Branch furosemide 2020-0 Yes [id number] 80mg Take 1 U nivers 80 mg 3-12 tablet by ity of tablet 00:00: mouth [place] 00 every Medical morning Branch and evening. metoprolol 2020-0 Yes [id number] 25mg Take 1 U nivers succinate 3-12 tablet by ity o f XL 25 mg 24 00:00: mouth 2 [place] hr tablet 00 (two) Medical times Branch daily. spironolact 0 Yes [id number] 50mg Take 1 [facility] one 50 mg 3-12 tablet by ity o f tablet 00:00: mouth [place] 00 daily. Medical Branch KCL 20 mEq 2020-0 Yes [id number] 40meq Take 2 [facility] tablet 3-12 tablets by ity of 00:00: mouth [place] 00 daily. Medical Branch nitroglycer [id number] 1 [facility] in 0.4 mg 3-12 tablet ity of sublingual 00:00: under the [place] tablet 00 tongue Medical every 5 Branch (five) minutes as needed for Chest pain. atorvastati 0 Yes [id number] 40mg Take 1 [facility] n 40 mg 3-12 tablet by ity of tablet 00:00: mouth at [place] 00 bedtime. Medical Branch clopidogreL 2020-0 Yes [id number] 75mg Take 1 [facility] 75 mg 3-12 tablet by ity of tablet 00:00: mouth [place] 00 daily. Medical Branch enalapril 2020-0 Yes 2.5mg Take 1 Unive rs 2.5 mg 3-12 tablet by ity of tablet 00:00: mouth [place] 00 daily. Medical Branch furosemide 2020-0 Yes [id number] 80mg Take 1 U nivers 80 mg 3-12 tablet by ity of tablet 00:00: mouth [place] 00 every Medical morning Branch and evening. metoprolol 2020-0 Yes [id number] 25mg Take 1 U nivers succinate 3-12 tablet by ity o f XL 25 mg 24 00:00: mouth 2 [place] hr tablet 00 (two) Medical times Branch daily. spironolact 2020-0 Yes [id number] 50mg Take 1 [facility] one 50 mg 3-12 tablet by ity o f tablet 00:00: mouth [place] 00 daily. Medical Branch KCL 20 mEq 2020-0 Yes [id number] 40meq Take 2 [facility] tablet 3-12 tablets by ity of 00:00: mouth [place] 00 daily. Medical Branch nitroglycer 2020-[id number] 1 [facility] in 0.4 mg 3-12 tablet ity of sublingual 00:00: under the [place] tablet 00 tongue Medical every 5 Branch (five) minutes as needed for Chest pain. atorvastati 2020-0 Yes [id number] 40mg Take 1 [facility] n 40 mg 3-12 tablet by ity of tablet 00:00: mouth at [place] 00 bedtime. Medical Branch clopidogreL 2020-0 Yes [id number] 75mg Take 1 [facility] 75 mg 3-12 tablet by ity of tablet 00:00: mouth [place] 00 daily. Medical Branch enalapril 2020-0 Yes 2.5mg Take 1 Unive rs 2.5 mg 3-12 tablet by ity of tablet 00:00: mouth [place] 00 daily. Medical Branch furosemide 2020-0 Yes [id number] 80mg Take 1 U nivers 80 mg 3-12 tablet by ity of tablet 00:00: mouth [place] 00 every Medical morning Branch and evening. metoprolol 2020-0 Yes [id number] 25mg Take 1 U nivers succinate 3-12 tablet by ity o f XL 25 mg 24 00:00: mouth 2 [place] hr tablet 00 (two) Medical times Branch daily. spironolact 2020-0 Yes [id number] 50mg Take 1 [facility] one 50 mg 3-12 tablet by ity o f tablet 00:00: mouth [place] 00 daily. Medical Branch KCL 20 mEq 2020-0 Yes [id number] 40meq Take 2 [facility] tablet 3-12 tablets by ity of 00:00: mouth [place] 00 daily. Medical Branch nitroglycer [id number] 1 [facility] in 0.4 mg 3-12 tablet ity of sublingual 00:00: under the [place] tablet 00 tongue Medical every 5 Branch (five) minutes as needed for Chest pain. atorvastati 2020-0 Yes [id number] 40mg Take 1 [facility] n 40 mg 3-12 tablet by ity of tablet 00:00: mouth at [place] 00 bedtime. Medical Branch clopidogreL 0 Yes [id number] 75mg Take 1 [facility] 75 mg 3-12 tablet by ity of tablet 00:00: mouth [place] 00 daily. Medical Branch enalapril 0 Yes 2.5mg Take 1 Unive rs 2.5 mg 3-12 tablet by ity of tablet 00:00: mouth [place] 00 daily. Medical Branch furosemide 2020-0 Yes [id number] 80mg Take 1 U nivers 80 mg 3-12 tablet by ity of tablet 00:00: mouth [place] 00 every Medical morning Branch and evening. metoprolol 0 Yes [id number] 25mg Take 1 [facility] succinate 3-12 tablet by [facility] o f XL 25 mg 24 00:00: mouth 2 [place] [facility] tablet 00 (two) Medical times [facility] daily. spironolact 0 Yes [id number] 50mg Take 1 [facility] one 50 mg 3-12 tablet by [facility] f tablet 00:00: mouth [place] 00 daily. [facility] KCL 20 mEq 2020-0 Yes [id number] 40meq Take 2 [facility] tablet 3-12 tablets by [facility] of 00:00: mouth [place] 00 daily. [facility] nitroglycer [id number] 1 [facility] in 0.4 mg 3-12 tablet [facility] of sublingual 00:00: under the [place] tablet 00 tongue Medical every 5 Branch (five) minutes as needed for Chest pain. atorvastati 0 Yes [id number] 40mg Take 1 [facility] n 40 mg 3-12 tablet by [facility] tablet 00:00: mouth at [place] 00 bedtime. [facility] clopidogreL 2020-0 Yes [id number] 75mg Take 1 [facility] 75 mg 3-12 tablet by [facility] tablet 00:00: mouth [place] 00 daily. [facility] enalapril 2020-0 Yes 2.5mg Take 1 [facility] rs 2.5 mg 3-12 tablet by [facility] tablet 00:00: mouth [place] 00 daily. [facility] furosemide 2020-0 Yes [id number] 80mg Take 1 [facility] 80 mg 3-12 tablet by [facility] tablet 00:00: mouth [place] 00 every Medical morning Branch and evening. metoprolol 2020-0 Yes [id number] 25mg Take 1 [facility] succinate 3-12 tablet by [facility] o f XL 25 mg 24 00:00: mouth 2 [place] [facility] tablet 00 (two) Medical times [facility] daily. spironolact 2020-0 Yes [id number] 50mg Take 1 [facility] one 50 mg 3-12 tablet by [facility] o f tablet 00:00: mouth [place] 00 daily. [facility] KCL 20 mEq 2020-0 Yes [id number] 40meq Take 2 [facility] tablet 3-12 tablets by [facility] of 00:00: mouth [place] 00 daily. [facility] nitroglycer 2020-[id number] 1 [facility] in 0.4 mg 3-12 tablet [facility] of sublingual 00:00: under the [place] tablet 00 tongue Medical every 5 Branch (five) minutes as needed for Chest pain. atorvastati 2020-0 Yes [id number] 40mg Take 1 [facility] n 40 mg 3-12 tablet by [facility] tablet 00:00: mouth at [place] 00 bedtime. [facility] clopidogreL 2020-0 Yes [id number] 75mg Take 1 [facility] 75 mg 3-12 tablet by [facility] tablet 00:00: mouth [place] 00 daily. [facility] enalapril 2020-0 Yes 2.5mg Take 1 [facility] rs 2.5 mg 3-12 tablet by [facility] tablet 00:00: mouth [place] 00 daily. [facility] furosemide 2020-0 Yes [id number] 80mg Take 1 [facility] 80 mg 3-12 tablet by [facility] tablet 00:00: mouth [place] 00 every Medical morning Branch and evening. metoprolol 2020-0 Yes [id number] 25mg Take 1 [facility] succinate 3-12 tablet by [facility] o f XL 25 mg 24 00:00: mouth 2 [place] [facility] tablet 00 (two) Medical times [facility] daily. spironolact 2020-0 Yes [id number] 50mg Take 1 [facility] one 50 mg 3-12 tablet by [facility] o f tablet 00:00: mouth [place] 00 daily. [facility] KCL 20 mEq 0 Yes [id number] 40meq Take 2 [facility] tablet 3-12 tablets by [facility] of 00:00: mouth [place] 00 daily. [facility] nitroglycer [id number] 1 [facility] in 0.4 mg 3-12 tablet [facility] sublingual 00:00: under the [place] tablet 00 tongue Medical every 5 Branch (five) minutes as needed for Chest pain. atorvastati Yes [id number] 40mg Take 1 [facility] n 40 mg 3-12 tablet by [facility] of tablet 00:00: mouth at [place] 00 bedtime. [facility] clopidogreL Yes [id number] 75mg Take 1 [facility] 75 mg 3-12 tablet by [facility] tablet 00:00: mouth [place] 00 daily. [facility] enalapril Yes 2.5mg Take 1 [facility] rs 2.5 mg 3-12 tablet by [facility] tablet 00:00: mouth [place] 00 daily. [facility] furosemide 0 Yes [id number] 80mg Take 1 [facility] 80 mg 3-12 tablet by [facility] tablet 00:00: mouth [place] 00 every Medical morning Branch and evening. metoprolol Yes [id number] 25mg Take 1 [facility] succinate 3-12 tablet by [facility] o f XL 25 mg 24 00:00: mouth 2 [place] [facility] tablet 00 (two) Medical times [facility] daily. spironolact 0 Yes [id number] 50mg Take 1 [facility] one 50 mg 3-12 tablet by [facility] o f tablet 00:00: mouth [place] 00 daily. [facility] KCL 20 mEq 0 Yes [id number] 40meq Take 2 [facility] tablet 3-12 tablets by [facility] of 00:00: mouth [place] 00 daily. [facility] nitroglycer Yes [id number] .4mg Place 1 [facility] in 0.4 mg 3-12 tablet [facility] sublingual 00:00: under the [place] tablet 00 tongue Medical every 5 Branch (five) minutes as needed for Chest pain. atorvastati 0 Yes [id number] 40mg Take 1 [facility] n 40 mg 3-12 tablet by [facility] tablet 00:00: mouth at [place] 00 bedtime. [facility] clopidogreL 0 Yes [id number] 75mg Take 1 [facility] 75 mg 3-12 tablet by [facility] of tablet 00:00: mouth [place] 00 daily. [facility] enalapril 0 Yes 2.5mg Take 1 [facility] rs 2.5 mg 3-12 tablet by [facility] tablet 00:00: mouth [place] 00 daily. [facility] furosemide 0 Yes [id number] 80mg Take 1 [facility] 80 mg 3-12 tablet by [facility] tablet 00:00: mouth [place] 00 every Medical morning Branch and evening. metoprolol 2020-0 Yes [id number] 25mg Take 1 [facility] succinate 3-12 tablet by [facility] o f XL 25 mg 24 00:00: mouth 2 [place] [facility] tablet 00 (two) Medical times [facility] daily. spironolact 0 Yes [id number] 50mg Take 1 [facility] one 50 mg 3-12 tablet by [facility] o f tablet 00:00: mouth [place] 00 daily. [facility] KCL 20 mEq 0 Yes [id number] 40meq Take 2 [facility] tablet 3-12 tablets by [facility] of 00:00: mouth [place] 00 daily. [facility] nitroglycer Yes [id number] .4mg Place 1 [facility] in 0.4 mg 3-12 tablet [facility] of sublingual 00:00: under the [place] tablet 00 tongue Medical every 5 Branch (five) minutes as needed for Chest pain. atorvastati Yes [id number] 40mg Take 1 [facility] n 40 mg 3-12 tablet by [facility] of tablet 00:00: mouth at [place] 00 bedtime. [facility] clopidogreL 0 Yes [id number] 75mg Take 1 [facility] 75 mg 3-12 tablet by [facility] tablet 00:00: mouth [place] 00 daily. [facility] enalapril 0 Yes 2.5mg Take 1 [facility] rs 2.5 mg 3-12 tablet by [facility] tablet 00:00: mouth [place] 00 daily. [facility] furosemide 0 Yes [id number] 80mg Take 1 [facility] 80 mg 3-12 tablet by [facility] tablet 00:00: mouth [place] 00 every Medical morning Branch and evening. metoprolol 2020-0 Yes [id number] 25mg Take 1 [facility] succinate 3-12 tablet by [facility] o f XL 25 mg 24 00:00: mouth 2 [place] [facility] tablet 00 (two) Medical times [facility] daily. spironolact 0 Yes [id number] 50mg Take 1 [facility] one 50 mg 3-12 tablet by [facility] o f tablet 00:00: mouth [place] 00 daily. [facility] KCL 20 mEq 0 Yes [id number] 40meq Take 2 [facility] tablet 3-12 tablets by [facility] of 00:00: mouth [place] 00 daily. [facility] nitroglycer Yes [id number] .4mg Place 1 [facility] in 0.4 mg 3-12 tablet [facility] sublingual 00:00: under the [place] tablet 00 tongue Medical every 5 Branch (five) minutes as needed for Chest pain. atorvastati Yes [id number] 40mg Take 1 [facility] n 40 mg 3-12 tablet by [facility] of tablet 00:00: mouth at [place] 00 bedtime. [facility] clopidogreL Yes [id number] 75mg Take 1 [facility] 75 mg 3-12 tablet by [facility] tablet 00:00: mouth [place] 00 daily. [facility] enalapril Yes 2.5mg Take 1 [facility] rs 2.5 mg 3-12 tablet by [facility] tablet 00:00: mouth [place] 00 daily. [facility] furosemide 0 Yes [id number] 80mg Take 1 [facility] 80 mg 3-12 tablet by [facility] tablet 00:00: mouth [place] 00 every Medical morning Branch and evening. metoprolol Yes [id number] 25mg Take 1 [facility] succinate 3-12 tablet by [facility] o f XL 25 mg 24 00:00: mouth 2 [place] [facility] tablet 00 (two) Medical times [facility] daily. spironolact 0 Yes [id number] 50mg Take 1 [facility] one 50 mg 3-12 tablet by [facility] o f tablet 00:00: mouth [place] 00 daily. [facility] KCL 20 mEq 2020-0 Yes [id number] 40meq Take 2 [facility] tablet 3-12 tablets by [facility] of 00:00: mouth [place] 00 daily. [facility] nitroglycer [id number] 1 [facility] in 0.4 mg 3-12 tablet [facility] of sublingual 00:00: under the [place] tablet 00 tongue Medical every 5 Branch (five) minutes as needed for Chest pain. atorvastati Yes [id number] 40mg Take 1 [facility] n 40 mg 3-12 tablet by [facility] of tablet 00:00: mouth at [place] 00 bedtime. [facility] clopidogreL 2020-0 Yes [id number] 75mg Take 1 [facility] 75 mg 3-12 tablet by [facility] tablet 00:00: mouth [place] 00 daily. [facility] enalapril 0 Yes 2.5mg Take 1 [facility] rs 2.5 mg 3-12 tablet by [facility] tablet 00:00: mouth [place] 00 daily. [facility] furosemide 2020-0 Yes [id number] 80mg Take 1 [facility] 80 mg 3-12 tablet by [facility] tablet 00:00: mouth [place] 00 every Medical morning Branch and evening. metoprolol Yes [id number] 25mg Take 1 [facility] succinate 3-12 tablet by [facility] o f XL 25 mg 24 00:00: mouth 2 [place] [facility] tablet 00 (two) Medical times [facility] daily. spironolact 0 Yes [id number] 50mg Take 1 [facility] one 50 mg 3-12 tablet by [facility] o f tablet 00:00: mouth [place] 00 daily. [facility] KCL 20 mEq 2020-0 Yes [id number] 40meq Take 2 [facility] tablet 3-12 tablets by [facility] of 00:00: mouth [place] 00 daily. [facility] nitroglycer Yes [id number] .4mg Place 1 [facility] in 0.4 mg 3-12 tablet [facility] of sublingual 00:00: under the [place] tablet 00 tongue Medical every 5 Branch (five) minutes as needed for Chest pain. atorvastati Yes [id number] 40mg Take 1 [facility] n 40 mg 3-12 tablet by [facility] of tablet 00:00: mouth at [place] 00 bedtime. [facility] clopidogreL 2020-0 Yes [id number] 75mg Take 1 [facility] 75 mg 3-12 tablet by [facility] of tablet 00:00: mouth [place] 00 daily. [facility] enalapril 2020-0 Yes 2.5mg Take 1 [facility] rs 2.5 mg 3-12 tablet by [facility] tablet 00:00: mouth [place] 00 daily. [facility] furosemide 2020-0 Yes [id number] 80mg Take 1 [facility] 80 mg 3-12 tablet by [facility] tablet 00:00: mouth [place] 00 every Medical morning Branch and evening. metoprolol 2020-0 Yes [id number] 25mg Take 1 [facility] succinate 3-12 tablet by [facility] o f XL 25 mg 24 00:00: mouth 2 [place] [facility] tablet 00 (two) Medical times [facility] daily. spironolact 2020-0 Yes [id number] 50mg Take 1 [facility] one 50 mg 3-12 tablet by [facility] o f tablet 00:00: mouth [place] 00 daily. [facility] KCL 20 mEq 2020-0 Yes [id number] 40meq Take 2 [facility] tablet 3-12 tablets by [facility] of 00:00: mouth [place] 00 daily. [facility] nitroglycer Yes [id number] .4mg Place 1 [facility] in 0.4 mg 3-12 tablet [facility] of sublingual 00:00: under the [place] tablet 00 tongue Medical every 5 Branch (five) minutes as needed for Chest pain. atorvastati 0 Yes [id number] 40mg Take 1 [facility] n 40 mg 3-12 tablet by [facility] of tablet 00:00: mouth at [place] 00 bedtime. [facility] clopidogreL 0 Yes [id number] 75mg Take 1 [facility] 75 mg 3-12 tablet by [facility] of tablet 00:00: mouth [place] 00 daily. [facility] enalapril 0 Yes 2.5mg Take 1 [facility] rs 2.5 mg 3-12 tablet by [facility] of tablet 00:00: mouth [place] 00 daily. [facility] furosemide 2020-0 Yes [id number] 80mg Take 1 [facility] 80 mg 3-12 tablet by [facility] tablet 00:00: mouth [place] 00 every Medical morning Branch and evening. metoprolol 2020-0 Yes [id number] 25mg Take 1 [facility] succinate 3-12 tablet by [facility] o f XL 25 mg 24 00:00: mouth 2 [place] [facility] tablet 00 (two) Medical times [facility] daily. spironolact 2020-0 Yes [id number] 50mg Take 1 [facility] one 50 mg 3-12 tablet by [facility] o f tablet 00:00: mouth [place] 00 daily. [facility] KCL 20 mEq 2020-0 Yes [id number] 40meq Take 2 [facility] tablet 3-12 tablets by [facility] of 00:00: mouth [place] 00 daily. [facility] nitroglycer [id number] 1 [facility] in 0.4 mg 3-12 tablet [facility] of sublingual 00:00: under the [place] tablet 00 tongue Medical every 5 Branch (five) minutes as needed for Chest pain. atorvastati 0 Yes [id number] 40mg Take 1 [facility] n 40 mg 3-12 tablet by [facility] of tablet 00:00: mouth at [place] 00 bedtime. [facility] clopidogreL 2020-0 Yes [id number] 75mg Take 1 [facility] 75 mg 3-12 tablet by [facility] of tablet 00:00: mouth [place] 00 daily. [facility] enalapril 0 Yes 2.5mg Take 1 [facility] rs 2.5 mg 3-12 tablet by [facility] of tablet 00:00: mouth [place] 00 daily. [facility] furosemide 2020-0 Yes [id number] 80mg Take 1 [facility] 80 mg 3-12 tablet by [facility] tablet 00:00: mouth [place] 00 every Medical morning Branch and evening. metoprolol 0 Yes [id number] 25mg Take 1 [facility] succinate 3-12 tablet by [facility] o f XL 25 mg 24 00:00: mouth 2 [place] [facility] tablet 00 (two) Medical times [facility] daily. spironolact 0 Yes [id number] 50mg Take 1 [facility] one 50 mg 3-12 tablet by [facility] o f tablet 00:00: mouth [place] 00 daily. [facility] KCL 20 mEq 2020-0 Yes [id number] 40meq Take 2 [facility] tablet 3-12 tablets by [facility] of 00:00: mouth [place] 00 daily. [facility] nitroglycer [id number] 1 [facility] in 0.4 mg 3-12 tablet [facility] of sublingual 00:00: under the [place] tablet 00 tongue Medical every 5 Branch (five) minutes as needed for Chest pain. atorvastati 0 Yes [id number] 40mg Take 1 [facility] n 40 mg 3-12 tablet by [facility] of tablet 00:00: mouth at [place] 00 bedtime. [facility] clopidogreL 2020-0 Yes [id number] 75mg Take 1 [facility] 75 mg 3-12 tablet by [facility] of tablet 00:00: mouth [place] 00 daily. [facility] enalapril 2020-0 Yes 2.5mg Take 1 [facility] rs 2.5 mg 3-12 tablet by [facility] tablet 00:00: mouth [place] 00 daily. [facility] furosemide 2020-0 Yes [id number] 80mg Take 1 [facility] 80 mg 3-12 tablet by [facility] tablet 00:00: mouth [place] 00 every Medical morning Branch and evening. metoprolol 2020-0 Yes [id number] 25mg Take 1 [facility] succinate 3-12 tablet by [facility] o f XL 25 mg 24 00:00: mouth 2 [place] [facility] tablet 00 (two) Medical times [facility] daily. spironolact 2020-0 Yes [id number] 50mg Take 1 [facility] one 50 mg 3-12 tablet by [facility] o f tablet 00:00: mouth [place] 00 daily. [facility] KCL 20 mEq 2020-0 Yes [id number] 40meq Take 2 [facility] tablet 3-12 tablets by [facility] of 00:00: mouth [place] 00 daily. [facility] nitroglycer 2020-[id number] 1 [facility] in 0.4 mg 3-12 tablet [facility] of sublingual 00:00: under the [place] tablet 00 tongue Medical every 5 Branch (five) minutes as needed for Chest pain. atorvastati 2020-0 Yes [id number] 40mg Take 1 [facility] n 40 mg 3-12 tablet by [facility] of tablet 00:00: mouth at [place] 00 bedtime. [facility] clopidogreL 2020-0 Yes [id number] 75mg Take 1 [facility] 75 mg 3-12 tablet by [facility] of tablet 00:00: mouth [place] 00 daily. [facility] enalapril 2020-0 Yes 2.5mg Take 1 [facility] rs 2.5 mg 3-12 tablet by [facility] tablet 00:00: mouth [place] 00 daily. [facility] furosemide 2020-0 Yes [id number] 80mg Take 1 [facility] 80 mg 3-12 tablet by [facility] tablet 00:00: mouth [place] 00 every Medical morning Branch and evening. metoprolol 2020-0 Yes [id number] 25mg Take 1 [facility] succinate 3-12 tablet by [facility] o f XL 25 mg 24 00:00: mouth 2 [place] [facility] tablet 00 (two) Medical times [facility] daily. spironolact 2020-0 Yes [id number] 50mg Take 1 [facility] one 50 mg 3-12 tablet by [facility] o f tablet 00:00: mouth [place] 00 daily. [facility] KCL 20 mEq 2020-0 Yes [id number] 40meq Take 2 [facility] tablet 3-12 tablets by [facility] of 00:00: mouth [place] 00 daily. [facility] nitroglycer [id number] 1 [facility] in 0.4 mg 3-12 tablet [facility] of sublingual 00:00: under the [place] tablet 00 tongue Medical every 5 Branch (five) minutes as needed for Chest pain. atorvastati 2020-0 Yes [id number] 40mg Take 1 [facility] n 40 mg 3-12 tablet by [facility] of tablet 00:00: mouth at [place] 00 bedtime. [facility] clopidogreL 2020-0 Yes [id number] 75mg Take 1 [facility] 75 mg 3-12 tablet by [facility] of tablet 00:00: mouth [place] 00 daily. [facility] enalapril 0 Yes 2.5mg Take 1 [facility] rs 2.5 mg 3-12 tablet by [facility] of tablet 00:00: mouth [place] 00 daily. [facility] furosemide 2020-0 Yes [id number] 80mg Take 1 [facility] 80 mg 3-12 tablet by [facility] of tablet 00:00: mouth [place] 00 every Medical morning Branch and evening. metoprolol 0 Yes [id number] 25mg Take 1 [facility] succinate 3-12 tablet by [facility] o f XL 25 mg 24 00:00: mouth 2 [place] [facility] tablet 00 (two) Medical times [facility] daily. spironolact 0 Yes [id number] 50mg Take 1 [facility] one 50 mg 3-12 tablet by [facility] o f tablet 00:00: mouth [place] 00 daily. [facility] KCL 20 mEq 2020-0 Yes [id number] 40meq Take 2 [facility] tablet 3-12 tablets by [facility] of 00:00: mouth [place] 00 daily. [facility] nitroglycer [id number] 1 [facility] in 0.4 mg 3-12 tablet [facility] of sublingual 00:00: under the [place] tablet 00 tongue Medical every 5 Branch (five) minutes as needed for Chest pain. atorvastati 2020-0 Yes [id number] 40mg Take 1 [facility] n 40 mg 3-12 tablet by [facility] of tablet 00:00: mouth at [place] 00 bedtime. [facility] clopidogreL 2020-0 Yes [id number] 75mg Take 1 [facility] 75 mg 3-12 tablet by [facility] of tablet 00:00: mouth [place] 00 daily. [facility] enalapril 2020-0 Yes 2.5mg Take 1 [facility] rs 2.5 mg 3-12 tablet by [facility] of tablet 00:00: mouth [place] 00 daily. [facility] furosemide 2020-0 Yes [id number] 80mg Take 1 [facility] 80 mg 3-12 tablet by [facility] of tablet 00:00: mouth [place] 00 every Medical morning Branch and evening. metoprolol 2020-0 Yes [id number] 25mg Take 1 [facility] succinate 3-12 tablet by [facility] o f XL 25 mg 24 00:00: mouth 2 [place] [facility] tablet 00 (two) Medical times [facility] daily. spironolact 2020-0 Yes [id number] 50mg Take 1 [facility] one 50 mg 3-12 tablet by [facility] o f tablet 00:00: mouth [place] 00 daily. [facility] KCL 20 mEq 2020-0 Yes [id number] 40meq Take 2 [facility] tablet 3-12 tablets by [facility] of 00:00: mouth [place] 00 daily. [facility] nitroglycer 2020-[id number] 1 [facility] in 0.4 mg 3-12 tablet [facility] of sublingual 00:00: under the [place] tablet 00 tongue Medical every 5 Branch (five) minutes as needed for Chest pain. atorvastati 2020-0 Yes [id number] 40mg Take 1 [facility] n 40 mg 3-12 tablet by [facility] of tablet 00:00: mouth at [place] 00 bedtime. [facility] clopidogreL 2020-0 Yes [id number] 75mg Take 1 [facility] 75 mg 3-12 tablet by [facility] of tablet 00:00: mouth [place] 00 daily. [facility] enalapril 2020-0 Yes 2.5mg Take 1 [facility] rs 2.5 mg 3-12 tablet by [facility] of tablet 00:00: mouth [place] 00 daily. [facility] furosemide 2020-0 Yes [id number] 80mg Take 1 [facility] 80 mg 3-12 tablet by [facility] of tablet 00:00: mouth [place] 00 every Medical morning Branch and evening. metoprolol 2020-0 Yes [id number] 25mg Take 1 [facility] succinate 3-12 tablet by [facility] o f XL 25 mg 24 00:00: mouth 2 [place] [facility] tablet 00 (two) Medical times [facility] daily. spironolact 2020-0 Yes [id number] 50mg Take 1 [facility] one 50 mg 3-12 tablet by [facility] o f tablet 00:00: mouth [place] 00 daily. [facility] KCL 20 mEq 2020-0 Yes [id number] 40meq Take 2 [facility] tablet 3-12 tablets by [facility] of 00:00: mouth [place] 00 daily. [facility] nitroglycer 2020-[id number] 1 [facility] in 0.4 mg 3-12 tablet [facility] of sublingual 00:00: under the [place] tablet 00 tongue Medical every 5 Branch (five) minutes as needed for Chest pain. atorvastati 0 Yes [id number] 40mg Take 1 [facility] n 40 mg 3-12 tablet by [facility] of tablet 00:00: mouth at [place] 00 bedtime. [facility] clopidogreL 2020-0 Yes [id number] 75mg Take 1 [facility] 75 mg 3-12 tablet by [facility] of tablet 00:00: mouth [place] 00 daily. [facility] enalapril 0 Yes 2.5mg Take 1 [facility] rs 2.5 mg 3-12 tablet by [facility] of tablet 00:00: mouth [place] 00 daily. [facility] furosemide 2020-0 Yes [id number] 80mg Take 1 [facility] 80 mg 3-12 tablet by [facility] of tablet 00:00: mouth [place] 00 every Medical morning Branch and evening. metoprolol 0 Yes [id number] 25mg Take 1 [facility] succinate 3-12 tablet by [facility] o f XL 25 mg 24 00:00: mouth 2 [place] [facility] tablet 00 (two) Medical times [facility] daily. spironolact 0 Yes [id number] 50mg Take 1 [facility] one 50 mg 3-12 tablet by [facility] o f tablet 00:00: mouth [place] 00 daily. [facility] KCL 20 mEq 2020-0 Yes [id number] 40meq Take 2 [facility] tablet 3-12 tablets by [facility] of 00:00: mouth [place] 00 daily. [facility] nitroglycer [id number] 1 [facility] in 0.4 mg 3-12 tablet [facility] of sublingual 00:00: under the [place] tablet 00 tongue Medical every 5 Branch (five) minutes as needed for Chest pain. atorvastati 2020-0 Yes [id number] 40mg Take 1 [facility] n 40 mg 3-12 tablet by [facility] of tablet 00:00: mouth at [place] 00 bedtime. [facility] enalapril 2020-0 Yes 2.5mg Take 1 [facility] rs 2.5 mg 3-12 tablet by [facility] of tablet 00:00: mouth [place] 00 daily. [facility] furosemide 2020-0 Yes [id number] 80mg Take 1 [facility] 80 mg 3-12 tablet by [facility] of tablet 00:00: mouth [place] 00 every Medical morning Branch and evening. metoprolol 2020-0 Yes [id number] 25mg Take 1 [facility] succinate 3-12 tablet by [facility] o f XL 25 mg 24 00:00: mouth 2 [place] [facility] tablet 00 (two) Medical times [facility] daily. spironolact 2020-0 Yes [id number] 50mg Take 1 [facility] one 50 mg 3-12 tablet by [facility] o f tablet 00:00: mouth [place] 00 daily. [facility] KCL 20 mEq 2020-0 Yes [id number] 40meq Take 2 [facility] tablet 3-12 tablets by [facility] of 00:00: mouth [place] 00 daily. [facility] nitroglycer 2020-[id number] 1 [facility] in 0.4 mg 3-12 tablet [facility] of sublingual 00:00: under the [place] tablet 00 tongue Medical every 5 Branch (five) minutes as needed for Chest pain. atorvastati 0 Yes [id number] 40mg Take 1 [facility] n 40 mg 3-12 tablet by [facility] of tablet 00:00: mouth at [place] 00 bedtime. [facility] enalapril 2020-0 Yes 2.5mg Take 1 [facility] rs 2.5 mg 3-12 tablet by [facility] of tablet 00:00: mouth [place] 00 daily. [facility] furosemide 2020-0 Yes [id number] 80mg Take 1 [facility] 80 mg 3-12 tablet by [facility] of tablet 00:00: mouth [place] 00 every Medical morning Branch and evening. metoprolol 2020-0 Yes [id number] 25mg Take 1 [facility] succinate 3-12 tablet by [facility] o f XL 25 mg 24 00:00: mouth 2 [place] [facility] tablet 00 (two) Medical times [facility] daily. spironolact 2020-0 Yes [id number] 50mg Take 1 [facility] one 50 mg 3-12 tablet by [facility] o f tablet 00:00: mouth [place] 00 daily. [facility] KCL 20 mEq 2020-0 Yes [id number] 40meq Take 2 [facility] tablet 3-12 tablets by [facility] of 00:00: mouth [place] 00 daily. [facility] nitroglycer [id number] 1 [facility] in 0.4 mg 3-12 tablet [facility] of sublingual 00:00: under the [place] tablet 00 tongue Medical every 5 Branch (five) minutes as needed for Chest pain. atorvastati 0 Yes [id number] 40mg Take 1 [facility] n 40 mg 3-12 tablet by [facility] of tablet 00:00: mouth at [place] 00 bedtime. [facility] enalapril 0 Yes 2.5mg Take 1 [facility] rs 2.5 mg 3-12 tablet by [facility] of tablet 00:00: mouth [place] 00 daily. [facility] furosemide 0 Yes [id number] 80mg Take 1 [facility] 80 mg 3-12 tablet by [facility] of tablet 00:00: mouth [place] 00 every Medical morning Branch and evening. metoprolol 0 Yes [id number] 25mg Take 1 [facility] succinate 3-12 tablet by [facility] o f XL 25 mg 24 00:00: mouth 2 [place] [facility] tablet 00 (two) Medical times [facility] daily. spironolact 0 Yes [id number] 50mg Take 1 [facility] one 50 mg 3-12 tablet by [facility] o f tablet 00:00: mouth [place] 00 daily. [facility] KCL 20 mEq 2020-0 Yes [id number] 40meq Take 2 [facility] tablet 3-12 tablets by [facility] of 00:00: mouth [place] 00 daily. [facility] nitroglycer [id number] 1 [facility] in 0.4 mg 3-12 tablet [facility] of sublingual 00:00: under the [place] tablet 00 tongue Medical every 5 Branch (five) minutes as needed for Chest pain. atorvastati 0 Yes [id number] 40mg Take 1 [facility] n 40 mg 3-12 tablet by [facility] of tablet 00:00: mouth at [place] 00 bedtime. [facility] enalapril 2020-0 Yes 2.5mg Take 1 [facility] rs 2.5 mg 3-12 tablet by [facility] of tablet 00:00: mouth [place] 00 daily. [facility] furosemide 2020-0 Yes [id number] 80mg Take 1 [facility] 80 mg 3-12 tablet by [facility] of tablet 00:00: mouth [place] 00 every Medical morning Branch and evening. metoprolol 2021-0 Yes [id number] 25mg Take 1 [facility] succinate 3-12 tablet by [facility] o f XL 25 mg 24 00:00: mouth 2 [place] [facility] tablet 00 (two) Medical times [facility] daily. spironolact 0 Yes [id number] 50mg Take 1 [facility] one 50 mg 3-12 tablet by [facility] o f tablet 00:00: mouth [place] 00 daily. [facility] KCL 20 mEq Yes [id number] 40meq Take 2 [facility] tablet 3-12 tablets by [facility] of 00:00: mouth [place] 00 daily. [facility] nitroglycer Yes [id number] .4mg Place 1 [facility] in 0.4 mg 3-12 tablet [facility] of sublingual 00:00: under the [place] tablet 00 tongue Medical every 5 Branch (five) minutes as needed for Chest pain. atorvastati Yes [id number] 40mg Take 1 [facility] n 40 mg 3-12 tablet by [facility] of tablet 00:00: mouth at [place] 00 bedtime. [facility] enalapril Yes 2.5mg Take 1 [facility] rs 2.5 mg 3-12 tablet by [facility] of tablet 00:00: mouth [place] 00 daily. [facility] furosemide Yes [id number] 80mg Take 1 [facility] 80 mg 3-12 tablet by [facility] of tablet 00:00: mouth [place] 00 every Medical morning Branch and evening. metoprolol Yes [id number] 25mg Take 1 [facility] succinate 3-12 tablet by [facility] o f XL 25 mg 24 00:00: mouth 2 [place] [facility] tablet 00 (two) Medical times [facility] daily. spironolact Yes [id number] 50mg Take 1 [facility] one 50 mg 3-12 tablet by [facility] o f tablet 00:00: mouth [place] 00 daily. [facility] KCL 20 mEq Yes [id number] 40meq Take 2 [facility] tablet 3-12 tablets by [facility] of 00:00: mouth [place] 00 daily. [facility] nitroglycer Yes [id number] .4mg Place 1 [facility] in 0.4 mg 3-12 tablet [facility]y of sublingual 00:00: under the [place] tablet 00 tongue Medical every 5 Branch (five) minutes as needed for Chest pain. atorvastati 2021-0 Yes [id number] 40mg Take 1 [facility] n 40 mg 3-12 tablet by [facility] tablet 00:00: mouth at [place] 00 bedtime. Medical [facility] enalapril 0 Yes 2.5mg Take 1 [facility] rs 2.5 mg 3-12 tablet by [facility] tablet 00:00: mouth [place] 00 daily. Medical Branch furosemide 0 Yes [id number] 80mg Take 1 [facility] n[facility] 80 mg 3-12 tablet by [facility] of tablet 00:00: mouth [place] 00 every Medical morning Branch and evening. metoprolol Yes [id number] 25mg Take 1 [facility] nivers succinate 3-12 tablet by [facility]y o f XL 25 mg 24 00:00: mouth 2 [place] [facility] tablet 00 (two) Medical times Branch daily. spironolact Yes [id number] 50mg Take 1 [facility] one 50 mg 3-12 tablet by [facility] o f tablet 00:00: mouth [place] 00 daily. Medical Branch KCL 20 mEq Yes [id number] 40meq Take 2 [facility] tablet 3-12 tablets by [facility] of 00:00: mouth [place] 00 daily. Medical Branch nitroglycer Yes [id number] .4mg Place 1 [facility] in 0.4 mg 3-12 tablet [facility] of sublingual 00:00: under the [place] tablet 00 tongue Medical every 5 Branch (five) minutes as needed for Chest pain. atorvastati Yes [id number] 40mg Take 1 [facility] n 40 mg 3-12 tablet by [facility] of tablet 00:00: mouth at [place] 00 bedtime. Medical [facility] enalapril 0 Yes 2.5mg Take 1 [facility] rs 2.5 mg 3-12 tablet by [facility] tablet 00:00: mouth [place] 00 daily. Medical [facility] furosemide 0 Yes [id number] 80mg Take 1 [facility] n[facility] 80 mg 3-12 tablet by [facility] of tablet 00:00: mouth [place] 00 every Medical morning Branch and evening. metoprolol 0 Yes [id number] 25mg Take 1 [facility] nivers succinate 3-12 tablet by [facility] o f XL 25 mg 24 00:00: mouth 2 [place] tablet 00 (two) Medical times Branch daily. spironolact 0 Yes [id number] 50mg Take 1 [facility] one 50 mg 3-12 tablet by [facility] o f tablet 00:00: mouth [place] 00 daily. Medical [facility] KCL 20 mEq 0 Yes [id number] 40meq Take 2 [facility] tablet 3-12 tablets by [facility] of 00:00: mouth [place] 00 daily. Medical Branch nitroglycer Yes [id number] .4mg Place 1 [facility] in 0.4 mg 3-12 tablet it[facility] of sublingual 00:00: under the [place] tablet 00 tongue Medical every 5 Branch (five) minutes as needed for Chest pain. atorvastati Yes [id number] 40mg Take 1 [facility] n 40 mg 3-12 tablet by [facility] of tablet 00:00: mouth at [place] 00 bedtime. Medical Branch enalapril Yes 2.5mg Take 1 [facility] rs 2.5 mg 3-12 tablet by [facility] of tablet 00:00: mouth [place] 00 daily. [facility] Branch furosemide Yes [id number] 80mg Take 1 [facility] n[facility] 80 mg 3-12 tablet by [facility] of tablet 00:00: mouth [place] 00 every Medical morning Branch and evening. metoprolol Yes [id number] 25mg Take 1 [facility] nivers succinate 3-12 tablet by [facility] o f XL 25 mg 24 00:00: mouth 2 [place] tablet 00 (two) Medical times Branch daily. spironolact Yes [id number] 50mg Take 1 [facility] one 50 mg 3-12 tablet by [facility] o f tablet 00:00: mouth [place] 00 daily. Medical [facility] KCL 20 mEq Yes [id number] 40meq Take 2 [facility] tablet 3-12 tablets by [facility] of 00:00: mouth [place] 00 daily. Medical [facility] nitroglycer Yes [id number] .4mg Place 1 [facility] in 0.4 mg 3-12 tablet [facility] of sublingual 00:00: under the [place] tablet 00 tongue Medical every 5 Branch (five) minutes as needed for Chest pain. atorvastati Yes [id number] 40mg Take 1 [facility] n 40 mg 3-12 tablet by [facility] of tablet 00:00: mouth at [place] 00 bedtime. Medical [facility] enalapril 0 Yes 2.5mg Take 1 [facility] rs 2.5 mg 3-12 tablet by [facility] of tablet 00:00: mouth [place] 00 daily. Medical Branch furosemide 2020-0 Yes [id number] 80mg Take 1 [facility] 80 mg 3-12 tablet by [facility] of tablet 00:00: mouth [place] 00 every Medical morning Branch and evening. metoprolol 2020-0 Yes [id number] 25mg Take 1 [facility] nivers succinate 3-12 tablet by [facility] o f XL 25 mg 24 00:00: mouth 2 [place] tablet 00 (two) Medical times Branch daily. spironolact 2020-0 Yes [id number] 50mg Take 1 [facility] one 50 mg 3-12 tablet by [facility] o f tablet 00:00: mouth [place] 00 daily. Medical [facility] KCL 20 mEq 2020-0 Yes [id number] 40meq Take 2 [facility] tablet 3-12 tablets by [facility] of 00:00: mouth [place] 00 daily. Medical Branch nitroglycer Yes [id number] .4mg Place 1 [facility] in 0.4 mg 3-12 tablet it[facility] of sublingual 00:00: under the [place] tablet 00 tongue Medical every 5 Branch (five) minutes as needed for Chest pain. atorvastati Yes [id number] 40mg Take 1 [facility] n 40 mg 3-12 tablet by [facility] of tablet 00:00: mouth at [place] 00 bedtime. Medical [facility] enalapril 0 Yes 2.5mg Take 1 [facility] rs 2.5 mg 3-12 tablet by [facility] of tablet 00:00: mouth [place] 00 daily. [facility] furosemide 2020-0 Yes [id number] 80mg Take 1 [facility] 80 mg 3-12 tablet by [facility] of tablet 00:00: mouth [place] 00 every Medical morning Branch and evening. metoprolol 2020-0 Yes [id number] 25mg Take 1 [facility] nivers succinate 3-12 tablet by [facility] o f XL 25 mg 24 00:00: mouth 2 [place] tablet 00 (two) Medical times Branch daily. spironolact 2020-0 Yes [id number] 50mg Take 1 [facility] one 50 mg 3-12 tablet by [facility] o f tablet 00:00: mouth [place] 00 daily. Medical [facility] KCL 20 mEq 2020-0 Yes [id number] 40meq Take 2 [facility] tablet 3-12 tablets by [facility] of 00:00: mouth [place] 00 daily. Medical Branch nitroglycer 2020-[id number] 1 [facility] in 0.4 mg 3-12 tablet it[facility] of sublingual 00:00: under the [place] tablet 00 tongue Medical every 5 Branch (five) minutes as needed for Chest pain. atorvastati 0 Yes [id number] 40mg Take 1 [facility] n 40 mg 3-12 tablet by [facility] of tablet 00:00: mouth at [place] 00 bedtime. Medical [facility] enalapril 0 Yes 2.5mg Take 1 [facility] rs 2.5 mg 3-12 tablet by [facility] of tablet 00:00: mouth [place] 00 daily. [facility] Branch furosemide Yes [id number] 80mg Take 1 [facility] n[facility] 80 mg 3-12 tablet by [facility] of tablet 00:00: mouth [place] 00 every Medical morning Branch and evening. metoprolol 0 Yes [id number] 25mg Take 1 [facility] nivers succinate 3-12 tablet by [facility] o f XL 25 mg 24 00:00: mouth 2 [place] tablet 00 (two) Medical times Branch daily. spironolact Yes [id number] 50mg Take 1 [facility] one 50 mg 3-12 tablet by [facility] o f tablet 00:00: mouth [place] 00 daily. Medical Branch KCL 20 mEq 0 Yes [id number] 40meq Take 2 [facility] tablet 3-12 tablets by [facility] of 00:00: mouth [place] 00 daily. Medical [facility] nitroglycer Yes [id number] .4mg Place 1 [facility] in 0.4 mg 3-12 tablet [facility] of sublingual 00:00: under the [place] tablet 00 tongue Medical every 5 Branch (five) minutes as needed for Chest pain. atorvastati 0 Yes [id number] 40mg Take 1 [facility] n 40 mg 3-12 tablet by [facility] of tablet 00:00: mouth at [place] 00 bedtime. Medical [facility] enalapril 0 Yes 2.5mg Take 1 [facility] rs 2.5 mg 3-12 tablet by [facility] of tablet 00:00: mouth [place] 00 daily. Medical Branch furosemide 0 Yes [id number] 80mg Take 1 [facility] 80 mg 3-12 tablet by [facility] of tablet 00:00: mouth [place] 00 every Medical morning Branch and evening. metoprolol 0 Yes [id number] 25mg Take 1 [facility] nivers succinate 3-12 tablet by [facility] o f XL 25 mg 24 00:00: mouth 2 [place] tablet 00 (two) Medical times Branch daily. spironolact 2020-0 Yes [id number] 50mg Take 1 [facility] one 50 mg 3-12 tablet by [facility] o f tablet 00:00: mouth 00 daily. Medical Branch KCL 20 mEq 2020-0 Yes [id number] 40meq Take 2 [facility] tablet 3-12 tablets by [facility] of 00:00: mouth daily. Medical Branch nitroglycer 2020-[id number] 1 [facility] in 0.4 mg 3-12 tablet it[facility] of sublingual 00:00: under the [place] tablet 00 tongue Medical every 5 Branch (five) minutes as needed for Chest pain. nitroglycer [id number] 1 [facility] in 0.4 mg 3-12 tablet ity of sublingual 00:00: under the [place] tablet 00 tongue Medical every 5 Branch (five) minutes as needed for Chest pain. nitroglycer Yes [id number] .4mg Place 1 [facility] in 0.4 mg 3-12 tablet ity of sublingual 00:00: under the [place] tablet 00 tongue Medical every 5 Branch (five) minutes as needed for Chest pain. nitroglycer 2020-[id number] 1 [facility] in 0.4 mg 3-12 tablet it[facility] of sublingual 00:00: under the [place] tablet 00 tongue Medical every 5 Branch (five) minutes as needed for Chest pain. nitroglycer 2020-[id number] 1 [facility] in 0.4 mg 3-12 tablet it[facility] of sublingual 00:00: under the [place] tablet 00 tongue Medical every 5 Branch (five) minutes as needed for Chest pain. nitroglycer 2020-[id number] 1 [facility] in 0.4 mg 3-12 tablet it[facility] of sublingual 00:00: under the [place] tablet 00 tongue Medical every 5 Branch (five) minutes as needed for Chest pain. nitroglycer 2020-[id number] 1 [facility] in 0.4 mg 3-12 tablet it[facility] of sublingual 00:00: under the [place] tablet 00 tongue Medical every 5 Branch (five) minutes as needed for Chest pain. atorvastati 0 Yes [id number] 40mg Take 1 [facility] n 40 mg 3-12 tablet by [facility] of tablet 00:00: mouth at [place] 00 bedtime. Medical [facility] nitroglycer [id number] 1 [facility] in 0.4 mg 3-12 tablet it[facility] of sublingual 00:00: under the [place] tablet 00 tongue Medical every 5 Branch (five) minutes as needed for Chest pain. enalapril 0 Yes 2.5mg Take 1 [facility] rs 2.5 mg 3-12 tablet by [facility] of tablet 00:00: mouth [place] 00 daily. Medical Branch furosemide 0 Yes [id number] 80mg Take 1 [facility] 80 mg 3-12 tablet by [facility] of tablet 00:00: mouth [place] 00 every Medical morning Branch and evening. metoprolol Yes [id number] 25mg Take 1 [facility] nivers succinate 3-12 tablet by [facility] o f XL 25 mg 24 00:00: mouth 2 [place] [facility] tablet 00 (two) Medical times Branch daily. nitroglycer Yes [id number] .4mg Place 1 [facility] in 0.4 mg 3-12 tablet it[facility] of sublingual 00:00: under the [place] tablet 00 tongue Medical every 5 Branch (five) minutes as needed for Chest pain. spironolact 0 Yes [id number] 50mg Take 1 [facility] one 50 mg 3-12 tablet by [facility] o f tablet 00:00: mouth [place] 00 daily. Medical Branch KCL 20 mEq 0 Yes [id number] 40meq Take 2 [facility] tablet 3-12 tablets by [facility] of 00:00: mouth [place] 00 daily. Medical Branch nitroglycer Yes [id number] .4mg Place 1 [facility] in 0.4 mg 3-12 tablet it[facility] of sublingual 00:00: under the [place] tablet 00 tongue Medical every 5 Branch (five) minutes as needed for Chest pain. atorvastati 0 Yes [id number] 40mg Take 1 [facility] n 40 mg 3-12 tablet by [facility] of tablet 00:00: mouth at [place] 00 bedtime. Medical Branch enalapril 0 Yes 2.5mg Take 1 [facility] rs 2.5 mg 3-12 tablet by [facility] of tablet 00:00: mouth [place] 00 daily. Medical Branch furosemide 2020-0 Yes [id number] 80mg Take 1 [facility] n[facility] 80 mg 3-12 tablet by [facility] of tablet 00:00: mouth [place] 00 every Medical morning Branch and evening. metoprolol 2020-0 Yes [id number] 25mg Take 1 [facility] nivers succinate 3-12 tablet by [facility] o f XL 25 mg 24 00:00: mouth 2 [place] [facility] tablet 00 (two) Medical times Branch daily. spironolact 0 Yes [id number] 50mg Take 1 [facility] one 50 mg 3-12 tablet by [facility] o f tablet 00:00: mouth [place] 00 daily. Medical Branch KCL 20 mEq Yes [id number] 40meq Take 2 [facility] tablet 3-12 tablets by [facility] of 00:00: mouth [place] 00 daily. Medical Branch nitroglycer Yes [id number] .4mg Place 1 [facility] in 0.4 mg 3-12 tablet it[facility] of sublingual 00:00: under the [place] tablet 00 tongue Medical every 5 Branch (five) minutes as needed for Chest pain. atorvastati Yes [id number] 40mg Take 1 [facility] n 40 mg 3-12 tablet by [facility] of tablet 00:00: mouth at [place] 00 bedtime. Medical Branch enalapril 0 Yes 2.5mg Take 1 [facility] rs 2.5 mg 3-12 tablet by [facility] of tablet 00:00: mouth [place] 00 daily. [facility] Branch furosemide 0 Yes [id number] 80mg Take 1 [facility] n[facility] 80 mg 3-12 tablet by [facility] of tablet 00:00: mouth [place] 00 every Medical morning Branch and evening. metoprolol 2020-0 Yes [id number] 25mg Take 1 [facility] nivers succinate 3-12 tablet by [facility] o f XL 25 mg 24 00:00: mouth 2 [place] tablet 00 (two) Medical times Branch daily. spironolact 2020-0 Yes [id number] 50mg Take 1 [facility] one 50 mg 3-12 tablet by [facility] o f tablet 00:00: mouth [place] 00 daily. Medical Branch KCL 20 mEq 2020-0 Yes [id number] 40meq Take 2 [facility] tablet 3-12 tablets by [facility] of 00:00: mouth [place] 00 daily. Medical Branch nitroglycer [id number] 1 [facility] in 0.4 mg 3-12 tablet ity of sublingual 00:00: under the [place] tablet 00 tongue Medical every 5 Branch (five) minutes as needed for Chest pain. atorvastati Yes [id number] 40mg Take 1 [facility] n 40 mg 3-12 tablet by [facility] of tablet 00:00: mouth at [place] 00 bedtime. Medical Branch enalapril Yes 2.5mg Take 1 [facility] rs 2.5 mg 3-12 tablet by [facility] of tablet 00:00: mouth [place] 00 daily. Medical Branch furosemide Yes [id number] 80mg Take 1 [facility] n[facility] 80 mg 3-12 tablet by [facility] of tablet 00:00: mouth [place] 00 every Medical morning Branch and evening. metoprolol Yes [id number] 25mg Take 1 [facility] nivers succinate 3-12 tablet by [facility]y o f XL 25 mg 24 00:00: mouth 2 [place] [facility] tablet 00 (two) Medical times Branch daily. spironolact Yes [id number] 50mg Take 1 [facility] one 50 mg 3-12 tablet by [facility] o f tablet 00:00: mouth [place] 00 daily. Medical Branch KCL 20 mEq Yes [id number] 40meq Take 2 [facility] tablet 3-12 tablets by [facility] of 00:00: mouth [place] 00 daily. Medical Branch nitroglycer Yes [id number] .4mg Place 1 [facility] in 0.4 mg 3-12 tablet it[facility] of sublingual 00:00: under the [place] tablet 00 tongue Medical every 5 Branch (five) minutes as needed for Chest pain. nitroglycer Yes [id number] .4mg Place 1 [facility] in 0.4 mg 3-12 tablet ity of sublingual 00:00: under the [place] tablet 00 tongue Medical every 5 Branch (five) minutes as needed for Chest pain. atorvastati Yes [id number] 40mg Take 1 [facility] n 40 mg 3-12 tablet by [facility] of tablet 00:00: mouth at [place] 00 bedtime. Medical Branch clopidogreL Yes [id number] 75mg Take 1 [facility] 75 mg 3-12 tablet by [facility] of tablet 00:00: mouth [place] 00 daily. Medical Branch enalapril 2021-0 Yes 2.5mg Take 1 [facility] rs 2.5 mg 3-12 tablet by [facility] of tablet 00:00: mouth [place] 00 daily. Medical Branch furosemide 2020-0 Yes [id number] 80mg Take 1 [facility] 80 mg 3-12 tablet by [facility] of tablet 00:00: mouth [place] 00 every Medical morning Branch and evening. metoprolol 2020-0 Yes [id number] 25mg Take 1 [facility] nivers succinate 3-12 tablet by [facility]y o f XL 25 mg 24 00:00: mouth 2 [place] tablet 00 (two) Medical times Branch daily. spironolact 2020-0 Yes [id number] 50mg Take 1 [facility] one 50 mg 3-12 tablet by [facility] o f tablet 00:00: mouth [place] 00 daily. Medical Branch KCL 20 mEq 2020-0 Yes [id number] 40meq Take 2 [facility] tablet 3-12 tablets by [facility] of 00:00: mouth [place] 00 daily. Medical Branch nitroglycer 2020-[id number] 1 [facility] in 0.4 mg 3-12 tablet ity of sublingual 00:00: under the [place] tablet 00 tongue Medical every 5 Branch (five) minutes as needed for Chest pain. atorvastati 2020-0 Yes [id number] 40mg Take 1 [facility] n 40 mg 3-12 tablet by [facility] of tablet 00:00: mouth at [place] 00 bedtime. Medical Branch clopidogreL 2020-0 Yes [id number] 75mg Take 1 [facility] 75 mg 3-12 tablet by [facility] of tablet 00:00: mouth [place] 00 daily. Medical Branch enalapril 2020-0 Yes 2.5mg Take 1 [facility] rs 2.5 mg 3-12 tablet by [facility] of tablet 00:00: mouth [place] 00 daily. [facility] Branch furosemide 2020-0 Yes [id number] 80mg Take 1 [facility] n[facility] 80 mg 3-12 tablet by [facility] of tablet 00:00: mouth [place] 00 every Medical morning Branch and evening. metoprolol 2020-0 Yes [id number] 25mg Take 1 [facility] nivers succinate 3-12 tablet by ity o f XL 25 mg 24 00:00: mouth 2 [place] tablet 00 (two) Medical times Branch daily. spironolact 2020-0 Yes [id number] 50mg Take 1 [facility] one 50 mg 3-12 tablet by ity o f tablet 00:00: mouth [place] 00 daily. Medical Branch KCL 20 mEq 0 Yes [id number] 40meq Take 2 [facility] tablet 3-12 tablets by [facility]y of 00:00: mouth [place] 00 daily. Medical Branch nitroglycer [id number] 1 [facility] in 0.4 mg 3-12 tablet ity of sublingual 00:00: under the [place] tablet 00 tongue Medical every 5 Branch (five) minutes as needed for Chest pain. atorvastati 0 Yes [id number] 40mg Take 1 [facility] n 40 mg 3-12 tablet by ity of tablet 00:00: mouth at [place] 00 bedtime. Medical Branch clopidogreL 0 Yes [id number] 75mg Take 1 [facility] 75 mg 3-12 tablet by [facility] of tablet 00:00: mouth [place] 00 daily. Medical Branch enalapril 0 Yes 2.5mg Take 1 [facility] rs 2.5 mg 3-12 tablet by [facility] of tablet 00:00: mouth [place] 00 daily. Medical Branch furosemide 0 Yes [id number] 80mg Take 1 [facility] nivers 80 mg 3-12 tablet by [facility] of tablet 00:00: mouth [place] 00 every Medical morning Branch and evening. metoprolol 0 Yes [id number] 25mg Take 1 [facility] nivers succinate 3-12 tablet by ity o f XL 25 mg 24 00:00: mouth 2 [place] tablet 00 (two) Medical times Branch daily. spironolact 0 Yes [id number] 50mg Take 1 [facility] one 50 mg 3-12 tablet by ity o f tablet 00:00: mouth [place] 00 daily. Medical Branch KCL 20 mEq 0 Yes [id number] 40meq Take 2 [facility] tablet 3-12 tablets by [facility] of 00:00: mouth [place] 00 daily. Medical Branch nitroglycer [id number] 1 [facility] in 0.4 mg 3-12 tablet ity of sublingual 00:00: under the [place] tablet 00 tongue Medical every 5 Branch (five) minutes as needed for Chest pain. atorvastati 2020-0 2020- No [id number] 40mg Take 1 [facility] n 40 mg 3-12 09-15 tablet by [facility] of tablet 00:00: 00:00 mouth at [place] 00 :00 bedtime. Medical Branch enalapril 2020- No 2.5mg Take 1 [facility] ers 2.5 mg -04 13-15 tablet by [facility] of tablet 00:00: 00:00 mouth [place] 00 :00 daily. Medical Branch furosemide 2020- No [id number] 80mg Take 1 [facility] 80 mg -04 13-15 tablet by [facility] of tablet 00:00: 00:00 mouth [place] 00 :00 every Medical morning Branch and evening. metoprolol 2020- No [id number] 25mg Take 1 [facility] succinate 07-15-15 tablet by [facility] of XL 25 mg 24 00:00: 00:00 mouth 2 [place] hr tablet 00 :00 (two) Medical times Branch daily. spironolact 2020- No [id number] 50mg Take 1 [facility] one 50 mg 07-15-15 tablet by [facility] of tablet 00:00: 00:00 mouth [place] 00 :00 daily. Medical Branch KCL 20 mEq 2020- No [id number] 40meq Take 2 [facility] tablet 07-15-15 tablets by [facility]y of 00:00: 00:00 mouth [place] 00 :00 daily. Medical Branch atorvastati 2020- No [id number] 40mg Take 1 [facility] n 40 mg 07-15-15 tablet by [facility] of tablet 00:00: 00:00 mouth at [place] 00 :00 bedtime. Medical Branch enalapril 2020- No 2.5mg Take 1 [facility] ers 2.5 mg 07-15-15 tablet by [facility] of tablet 00:00: 00:00 mouth [place] 00 :00 daily. Medical Branch furosemide 2020- No [id number] 80mg Take 1 [facility] 80 mg -04 13-15 tablet by [facility] of tablet 00:00: 00:00 mouth [place] 00 :00 every Medical morning Branch and evening. metoprolol 2020- No [id number] 25mg Take 1 [facility] succinate 3-04 13-15 tablet by [facility] of XL 25 mg 24 00:00: 00:00 mouth 2 [place] hr tablet 00 :00 (two) Medical times Branch daily. spironolact 2020- No [id number] 50mg Take 1 [facility] one 50 mg 3-04 13-15 tablet by [facility] of tablet 00:00: 00:00 mouth [place] 00 :00 daily. Medical Branch KCL 20 mEq 2020- No [id number] 40meq Take 2 [facility] tablet 07-15-15 tablets by ity of 00:00: 00:00 mouth [place] 00 :00 daily. Medical Branch clopidogreL 2020- No [id number] 75mg Take 1 [facility] 75 mg 07-15- tablet by ity of tablet 00:00: 00:00 mouth [place] 00 :00 daily. [facility] Branch enalapril Yes 2.5mg 2.5 mg, [facility] ers (VASOTEC) 8-28 Oral, ity of tablet 2.5 14:00: DAILY, [place] mg 00 First dose Medical on Sat Branch 01/01/20 at 0900, Until Discontinu ed, Routine enalapril Yes [id number] 2.5mg Take 1 U nivers 2.5 mg 8-28 tablet by ity of tablet 00:00: mouth [place] 00 daily. [facility] Branch enalapril Yes [id number] 2.5mg Take 1 U nivers 2.5 mg 8-28 tablet by ity of tablet 00:00: mouth [place] 00 daily. [facility] Branch enalapril Yes [id number] 2.5mg Take 1 U nivers 2.5 mg 8-28 tablet by ity of tablet 00:00: mouth [place] 00 daily. [facility] enalapril 2020- No [id number] 2.5mg Take 1 [facility] 2.5 mg 8-28 -12 tablet by ity of tablet 00:00: 00:00 mouth [place] 00 :00 daily. [facility] Branch enalapril 2020- No [id number] 2.5mg Take 1 [facility] 2.5 mg 8-28 03-12 tablet by ity of tablet 00:00: 00:00 mouth [place] 00 :00 daily. [facility] Branch KCL 2019- No 40meq 40 mEq, [facility] (KLOR-CON 12-30 Oral, ity of M20) tablet 12:30: 14:30 ONCE, 1 [place] 40 mEq 00 :00 dose, [facility] 12/31/19 at Branch 0730, Routine furosemide 2020-0 Yes [id number] 80mg Take 1 [facility] nivers 80 mg 8-27 tablet by ity of tablet 00:00: mouth [place] 00 every Medical morning Branch and evening. spironolact 2020-0 Yes [id number] 50mg Take 1 [facility] one 50 mg 8-27 tablet by ity o f tablet 00:00: mouth [place] 00 daily. Medical Branch metoprolol 2020-0 Yes [id number] 25mg Take 1 [facility] nivers succinate 8-27 tablet by ity o f XL 25 mg 24 00:00: mouth 2 [place] tablet 00 (two) Medical times Branch daily. clopidogreL 2020-0 Yes [id number] 75mg Take 1 [facility] 75 mg 8-27 tablet by ity of tablet 00:00: mouth [place] 00 daily. Medical Branch atorvastati 2020-0 Yes [id number] 40mg Take 1 [facility] n 40 mg 8-27 tablet by ity of tablet 00:00: mouth at [place] 00 bedtime. Medical Branch levoFLOXaci 2020-0 Yes [id number] 500mg Take 1 [facility] n 500 mg 8-27 tablet by ity of tablet 00:00: mouth [place] 00 every 24 Medical (twenty-fo Branch ur) hours. furosemide 2020-0 Yes [id number] 80mg Take 1 [facility] nivers 80 mg 8-27 tablet by ity of tablet 00:00: mouth [place] 00 every Medical morning Branch and evening. spironolact 2020-0 Yes [id number] 50mg Take 1 [facility] one 50 mg 8-27 tablet by ity o f tablet 00:00: mouth [place] 00 daily. Medical Branch metoprolol 2020-0 Yes [id number] 25mg Take 1 [facility] nivers succinate 8-27 tablet by ity o f XL 25 mg 24 00:00: mouth 2 [place] tablet 00 (two) Medical times Branch daily. clopidogreL 2020-0 Yes [id number] 75mg Take 1 [facility] 75 mg 8-27 tablet by ity of tablet 00:00: mouth [place] 00 daily. Medical Branch atorvastati 2020-0 Yes [id number] 40mg Take 1 [facility] n 40 mg 8-27 tablet by ity of tablet 00:00: mouth at [place] 00 bedtime. Medical Branch levoFLOXaci 2020-0 Yes [id number] 500mg Take 1 [facility] n 500 mg 8-27 tablet by ity of tablet 00:00: mouth [place] 00 every 24 Medical (twenty-fo Branch ur) hours. furosemide 2020-0 Yes [id number] 80mg Take 1 [facility] nivers 80 mg 8-27 tablet by ity of tablet 00:00: mouth [place] 00 every Medical morning Branch and evening. spironolact 2020-0 Yes [id number] 50mg Take 1 [facility] one 50 mg 8-27 tablet by ity o f tablet 00:00: mouth [place] 00 daily. Medical Branch metoprolol 2020-0 Yes [id number] 25mg Take 1 U nivers succinate 8-27 tablet by ity o f XL 25 mg 24 00:00: mouth 2 [place] tablet 00 (two) Medical times Branch daily. clopidogreL 2020-0 Yes [id number] 75mg Take 1 [facility] 75 mg 8-27 tablet by ity of tablet 00:00: mouth [place] 00 daily. Medical Branch atorvastati 2019-0 Yes [id number] 40mg Take 1 [facility] n 40 mg 8-27 tablet by ity of tablet 00:00: mouth at [place] 00 bedtime. Medical Branch levoFLOXaci 2020-0 Yes [id number] 500mg Take 1 [facility] n 500 mg 8-27 tablet by ity of tablet 00:00: mouth [place] 00 every 24 Medical (twenty-fo Branch ur) hours. furosemide 2019-0 2020- No [id number] 80mg Take 1 [facility] 80 mg 8-27 03-12 tablet by ity of tablet 00:00: 00:00 mouth [place] 00 :00 every Medical morning Branch and evening. spironolact 2019-0 2020- No [id number] 50mg Take 1 [facility] one 50 mg 8-27 03-12 tablet by ity of tablet 00:00: 00:00 mouth [place] 00 :00 daily. Medical Branch metoprolol 2019-0 2020- No [id number] 25mg Take 1 [facility] succinate 8-27 03-12 tablet by ity of XL 25 mg 24 00:00: 00:00 mouth 2 [place] hr tablet 00 :00 (two) Medical times Branch daily. clopidogreL 2020-0 2020- No [id number] 75mg Take 1 [facility] 75 mg 8-27 03-12 tablet by ity of tablet 00:00: 00:00 mouth [place] 00 :00 daily. Medical Branch atorvastati 2019-0 2020- No [id number] 40mg Take 1 [facility] n 40 mg 8-27 03-12 tablet by ity of tablet 00:00: 00:00 mouth at [place] 00 :00 bedtime. Medical Branch levoFLOXaci 2020- No [id number] 500mg Take 1 [facility] n 500 mg 12-30 tablet by ity o f tablet 00:00: 00:00 mouth [place] 00 :00 every 24 Medical (twenty-fo Branch ur) hours. furosemide 2020- No [id number] 80mg Take 1 [facility] 80 mg 12-30 tablet by ity of tablet 00:00: 00:00 mouth [place] 00 :00 every Medical morning Branch and evening. spironolact 2020- No [id number] 50mg Take 1 [facility] one 50 mg 12-30 tablet by ity of tablet 00:00: 00:00 mouth [place] 00 :00 daily. Medical Branch metoprolol 2020- No [id number] 25mg Take 1 [facility] succinate 12-30 tablet by ity of XL 25 mg 24 00:00: 00:00 mouth 2 [place] hr tablet 00 :00 (two) Medical times Branch daily. clopidogreL 2020- No [id number] 75mg Take 1 [facility] 75 mg 12-30 tablet by ity of tablet 00:00: 00:00 mouth [place] 00 :00 daily. Medical Branch atorvastati 2020- No [id number] 40mg Take 1 [facility] n 40 mg 12-30 tablet by ity of tablet 00:00: 00:00 mouth at [place] 00 :00 bedtime. Medical Branch levoFLOXaci 2020- No [id number] 500mg Take 1 [facility] n 500 mg 12-30 tablet by ity o f tablet 00:00: 00:00 mouth [place] 00 :00 every 24 Medical (twenty-fo Branch ur) hours. furosemide Yes 80mg 80 mg, Unive rs (LASIX) 12-29 Oral, ity of tablet 80 22:00: QAM+PM, [place] mg 00 First dose Medical on Sat Branch 12/30/19 at 1700, Until Discontinu ed, Routine KCL 2019- No 40meq 40 mEq, Univers (KLOR-CON 12-29 Oral, ity of M20) tablet 16:45: 16:31 ONCE, 1 [place] 40 mEq 00 :00 dose, Sat Medical 12/30/19 at Branch 1145, Routine nicotine 2020-0 Yes 1{patch 1 Patch, Un letitia (NICODERM) 12-29 } Topical, ity o f 14 mg/24 hr 15:15: Administer [place] patch 1 00 over 24 Medical Patch Hours, Branch Q24H, First dose on Sat12/30/19 at 1015, Until Discontinu ed, Routine aspirin 2020-0 Yes 81mg 81 mg, Univers chewable 12-29 Oral, ity of tablet 81 14:00: DAILY, [place] mg 00 First dose Medical on Sat [place] 12/30/19 at 0900, Until Discontinu ed, Routine levoFLOXaci 2020-0 Yes 750mg 750 mg, IV Univers n in D5W 12-29 Piggyback, ity o f (LEVAQUIN) 06:45: Administer [place] 750 mg/150 00 over 90 Medica l mL Minutes, [place] Piggyback Q24H ABX, 750 mg First dose (after last modificati on) on Sat12/30/19 at 0145, Until Discontinu ed, Routine
Reason for Anti-Infec tive: Empiric Therapy for Suspected Infection< br>Empiric Therapy Site: Respirator y
Durat ion of therapy: 7 days atorvastati 2020-0 Yes 40mg 40 mg, Univ ers n (LIPITOR) 12-29 Oral, QHS, it y of tablet 40 02:00: First dose [place] mg 00 on Sat12/29/19 at Branch 2100, Until Discontinu ed, Routine lactobacill 2020-0 Yes 1{tbl} 1 tablet, Univers us 12-29 Oral, BID, ity of acidophilus 01:00: First dose [place] (ACIDOPHILL 00 on Tue Medica l US) 12/29/19 at Branch million 2000, cell -100 Until mg captab 1 Discontinu tablet ed, Routine furosemide 2020-0 2020- No 80mg 80 mg, Univ ers (LASIX) 12-29 Slow IV ity of injection 01:00: 15:44 Push, [place] 80 mg 00 :09 Q12H, Medical First dose Branch (after last modificati on) on Sat12/29/19 at 2000, Until Discontinu ed, Routine sulfur 2020-0 2020- No 5mL 5 mL, Univers hexafluorid 12-28 Intravenou i ty of e microsphr 22:15: 18:30 s, ONCE, 1 [place] (LUMASON) 00 :00 dose, Sat Medic al injection 5 12/29/19 at Br anch mL 1715, Routine
[employer] team member approving Restricted medication : KACIE SEGURA enoxaparin 2020-0 Yes 1mg/kg 80 mg [facility] ers (LOVENOX) 12-28 (rounded ity of injection 15:00: from 76 mg [place] 80 mg 00 = 1 mg/kg Medical ?76 kg), [facility], Q12H, First dose (after last reorder) on Sat12/29/19 at 1000, Until Discontinu ed, ZAY furosemide 2019-0 2020- No 60mg 60 mg, [facility] ers (LASIX) 12-28 Slow IV ity of injection 15:00: 22:08 Push, [place] 60 mg 00 :20 Q12H, Medical First dose Branch on Sat12/29/19 at 1000, Until Discontinu ed, Routine spironolact 2020-0 Yes 50mg 50 mg, [facility] ers one 12-28 Oral, ity of (ALDACTONE) 14:00: DAILY, [place] tablet 50 00 First dose Medi ramses mg on Sat12/29/19 at 0900, Until Discontinu ed, Routine clopidogreL 2019-0 Yes 75mg 75 mg, [facility] ers (PLAVIX) 12-28 Oral, ity of tablet 75 14:00: DAILY, [place] mg 00 First dose Medical on Sat12/29/19 at 0900, Until Discontinu ed, Routine metoprolol 2020-0 Yes 25mg 25 mg, Unive rs succinate 12-28 Oral, BID, ity of XL (TOPROL 13:00: First dose [place] XL) tablet 00 on Sat Medical 25 mg 12/29/19 at Branch 0800, Until Discontinu ed, Routine nitroglycer 2020-0 Yes .4mg 0.4 mg, Uni vers in 12-28 Sublingual ity of (NITROSTAT) 08:40: , Q5MIN [place] sublingual 40 PRN, Medical tablet 0.4 Starting Branc h mg Sat12/29/19 at 0340, Until Discontinu ed, Routine, Chest pain levoFLOXaci 2020-0 2020- No 500mg 500 mg, IV Univers n in D5W 12-28 Piggyback, ity of (LEVAQUIN) 06:45: 22:06 Administer [place] 500 mg/100 00 :44 over 60 Medica l mL Minutes, [place] Piggyback Q24H ABX, 500 mg First dose on [facility] 12/29/19 at 0145, Until Discontinu ed, Routine
Reason for Anti-Infec tive: Empiric Therapy for Suspected Infection< br>Empiric Therapy Site: Respirator y
Durat ion of therapy: 7 days ondansetron 2019-0 Yes 4mg 4 mg, Slow Univers (ZOFRAN 12-28 IV Push, ity of (PF)) 05:37: Q6RN, [place] injection 4 03 Starting Medi ramses mg [facility] 12/29/19 at 0037, Until Discontinu ed, Routine, Nausea and Vomiting (N/V) traMADoL 2019-0 2019- No 50mg 50 mg, Univer s (ULTRAM) 12-28 Oral, ity of tablet 50 05:36: 05:35 Q8HPRN, [place] mg 58 :58 Starting [facility] 12/29/19 at 0036, Until [place] 12/31/19 at 0035, Routine, Pain (scale 4-6) acetaminoph 2019-0 Yes 650mg 650 mg, Un letitia en 12-28 Oral, ity of (TYLENOL) 05:36: Q6RN, [place] tablet 650 55 Starting Medic al mg [facility] 12/29/19 at 0036, Until Discontinu ed, Routine, Pain (scale 1-3) guaiFENesin 2020-0 Yes 200mg 200 mg, Un letitia 100 mg/5 mL 12-28 Oral, ity of solution 05:34: Q4HPRN, [place] 200 mg 28 Starting [facility] 12/29/19 at 0034, Until Discontinu ed, Routine, Cough metoprolol 2020-0 2020- No 5mg 5 mg, Slow Univers (LOPRESSOR) 12-28 IV Push, ity of injection 5 03:45: 03:14 ONCE, 1 [place] mg 00 :00 dose, [facility] 12/28/19 at Branch 2245, ZAY nitroglycer 2020-0 2020- No .5[in_u 0.5 Inch, Univers in (NITROL) 12-28 s] Transderma i ty of 2 % 03:45: 03:14 l (Apply [place] ointment 00 :00 To Skin), Medica l 0.5 Inch ONCE, 1 [place] dose, [facility] 12/28/19 at 2245, ZAY aspirin 2019- 2020- No 324mg 324 mg, Unive rs chewable 12-28 Oral, ity of tablet 324 03:45: 03:13 ONCE, 1 [place] mg 00 :00 dose, [facility] Medical 12/28/19 at Branch 2245, Routine iohexol 2020- No 120mL 120 mL, Unive rs (OMNIPAQUE 12-28 Intravenou it y of 350 03:15: 03:15 s, ONCE, 1 [place] BULK-150 00 :00 dose, Mon Medica l mL) 12/28/19 at [place] injection 2215, 120 mL Routine enoxaparin 2019- No 1mg/kg 80 mg Uni vers (LOVENOX) 12-28 (rounded ity o f injection 03:00: 02:19 from 76 mg [place] 80 mg 00 :00 = 1 mg/kg Medical ?76 kg), [place] Subcutaneo us, ONCE, 1 dose, [facility] 12/28/19 at 2200, ZAY furosemide 2019-0 2019- No 60mg 60 mg, IV U nivers (LASIX) 12-28 Push, ity of injection 03:00: 02:20 ONCE, 1 [place] 60 mg 00 :00 dose, [facility] 12/28/19 at Branch 2200, ZAY spironolact 2020-0 Yes [id number] 50mg Take 1 Univers one 50 mg 6-14 tablet by ity o f tablet 00:00: mouth [place] 00 daily. [facility] spironolact 2020-0 Yes [id number] 50mg Take 1 Univers one 50 mg 6-14 tablet by ity o f tablet 00:00: mouth [place] 00 daily. [facility] spironolact 2020-0 Yes [id number] 50mg Take 1 Univers one 50 mg 6-14 tablet by ity o f tablet 00:00: mouth [place] 00 daily. [facility] spironolact 2020-0 2020- No [id number] 50mg Take 1 Univers one 50 mg 6-14 08-27 tablet by ity of tablet 00:00: 00:00 mouth [place] 00 :00 daily. Medical Branch bisacodyL 2020-0 Yes 10mg 10 mg, Univer s (DULCOLAX) 6-13 Rectal, ity of suppository 02:17: QHSPRN, [place] 10 mg 50 Starting Medical Fri Branch 10/16/19 at 2117, Until Discontinu ed, Routine, constipati on furosemide 2019-0 Yes [id number] 80mg Take 1 U nivers 80 mg 6-13 tablet by ity of tablet 00:00: mouth [place] 00 every Medical morning Branch and evening. KCL 20 mEq 2020-0 Yes [id number] 40meq Take 2 Univers tablet 6-13 tablets by ity of 00:00: mouth [place] 00 daily. Medical Branch metoprolol 2019-0 Yes [id number] 25mg Take 1 U nivers succinate 6-13 tablet by ity o f XL 25 mg 24 00:00: mouth 2 [place] hr tablet 00 (two) Medical times Branch daily. furosemide 2020-0 Yes [id number] 80mg Take 1 U nivers 80 mg 6-13 tablet by ity of tablet 00:00: mouth [place] 00 every Medical morning Branch and evening. KCL 20 mEq 2020-0 Yes [id number] 40meq Take 2 Univers tablet 6-13 tablets by ity of 00:00: mouth [place] 00 daily. Medical Branch metoprolol 2020-0 Yes [id number] 25mg Take 1 U nivers succinate 6-13 tablet by ity o f XL 25 mg 24 00:00: mouth 2 [place] hr tablet 00 (two) Medical times Branch daily. furosemide 2020-0 Yes [id number] 80mg Take 1 U nivers 80 mg 6-13 tablet by ity of tablet 00:00: mouth [place] 00 every Medical morning Branch and evening. KCL 20 mEq 2020-0 Yes [id number] 40meq Take 2 Univers tablet 6-13 tablets by ity of 00:00: mouth [place] 00 daily. Medical Branch metoprolol 2020-0 Yes [id number] 25mg Take 1 U nivers succinate 6-13 tablet by ity o f XL 25 mg 24 00:00: mouth 2 [place] hr tablet 00 (two) Medical times Branch daily. KCL 20 mEq 2020-0 Yes [id number] 40meq Take 2 Univers tablet 6-13 tablets by ity of 00:00: mouth [place] 00 daily. Medical Branch KCL 20 mEq 2020-0 Yes [id number] 40meq Take 2 Univers tablet 6-13 tablets by ity of 00:00: mouth [place] 00 daily. Medical Branch KCL 20 mEq 2020-0 Yes [id number] 40meq Take 2 Univers tablet 6-13 tablets by ity of 00:00: mouth [place] 00 daily. Medical Branch KCL 20 mEq 2020-0 2020- No [id number] 40meq Take 2 Univers tablet 6-13 -12 tablets by ity of 00:00: 00:00 mouth [place] 00 :00 daily. Medical Branch KCL 20 mEq 2020-0 1- No [id number] 40meq Take 2 Univers tablet 6-13 -12 tablets by ity of 00:00: 00:00 mouth [place] 00 :00 daily. Medical Branch furosemide 2019-0 2020- No [id number] 80mg Take 1 [facility] 80 mg 10-16- tablet by ity of tablet 00:00: 00:00 mouth [place] 00 :00 every Medical morning Branch and evening. metoprolol 2019-0 2020- No [id number] 25mg Take 1 [facility] succinate 10-16- tablet by ity of XL 25 mg 24 00:00: 00:00 mouth 2 [place] hr tablet 00 :00 (two) Medical times Branch daily. HYDROcodone 2019-0 2020- No 1{tbl} 1 tablet, Univers -acetaminop 10-15 06-14 Oral, ity of hen (NORCO 19:23: 19:22 Q6HPRN, [place] 5) 5-325 mg 22 :22 Starting Medi ramses tablet 1 Sat Branch tablet 10/16/19 at 1423, Until 10/18/19 at 1422, Routine, Pain (scale 4-6) metoprolol 2020-0 Yes 25mg 25 mg, Unive rs succinate -12 Oral, BID, ity of XL (TOPROL 15:30: First dose [place] XL) tablet 00 on Sat Medical 25 mg 10/16/19 at Branch 1030, Until Discontinu ed, Routine furosemide 2019-0 Yes 80mg 80 mg, Unive rs (LASIX) 6-12 Oral, ity of tablet 80 15:15: QAM+PM, [place] mg 00 First dose Medical on Sat Branch 6/12/20 at 1015, Until Discontinu ed, Routine NaCl 0.9% 2020-0 Yes 250mL at 999 Unive rs (NS) bolus 6-12 mL/hr, 250 ity of infusion 09:21: mL, IV [place] 250 mL 12 Piggyback, Medical PRN, 2 Branch doses, Starting Sat10/16/19 at 0421, Until Discontinu ed, Routine KCL 2020-0 Yes 40meq 40 mEq, Univers (KLOR-CON 12 Oral, BID, ity of M20) tablet 01:00: First dose [place] 40 mEq [address] [facility] Medical 10/15/19 at Branch 2000, Until Discontinu ed, Routine enoxaparin 2020-0 Yes 30mg 30 mg, Unive rs (LOVENOX) 10-14 Subcutaneo ity of injection 14:00: us, DAILY, [place] 30 mg 00 First dose Medical on [facility] 10/15/19 at 0900, Until Discontinu ed, Routine clopidogreL 2020-0 Yes 75mg 75 mg, Univ ers (PLAVIX) 10-14 Oral, ity of tablet 75 14:00: DAILY, [place] mg 00 First dose Medical on [facility] 10/15/19 at 0900, Until Discontinu ed, Routine aspirin EC 2020-0 Yes 81mg 81 mg, Unive rs tablet 81 10-14 Oral, ity of mg 14:00: DAILY, [place] 00 First dose Medical on [facility] 10/15/19 at 0900, Until Discontinu ed, Routine KCL 2020-0 2020- No 40meq 40 mEq, Univers (KLOR-CON 10-14- Oral, ity of M20) tablet 14:00: 22:32 DAILY, [place] 40 mEq 00 :41 First dose Medical on [facility] 10/15/19 at 0900, Until Discontinu ed, Routine nicotine 2020-0 Yes 1{patch 1 Patch, Un letitia (NICODERM) 10-14 } Topical, ity o f 14 mg/24 hr 02:30: Administer [place] patch 1 00 over 24 Medical Patch Hours, Branch Q24H, First dose on Sat10/14/19 at 2130, Until Discontinu ed, Routine atorvastati 2020-0 Yes 40mg 40 mg, Univ ers n (LIPITOR) 6-11 Oral, QHS, it y of tablet 40 02:00: First dose [place] mg 00 on [facility] Medical 10/14/19 at Branch 2100, Until Discontinu ed, Routine metoprolol 2020-0 2020- No 50mg 50 mg, Univ ers succinate 10-14-12 Oral, BID, ity of XL (TOPROL 01:00: 15:17 First dose [place] XL) tablet 00 :48 on Sat Medical 50 mg 10/14/19 at Branch 2000, Until Discontinu ed, Routine spironolact 2020-0 Yes 50mg 50 mg, Univ ers one 6- Oral, ity of (ALDACTONE) 21:00: DAILY, [place] tablet 50 00 First dose Medi ramses mg on Sat Branch 10/14/19 at 1600, Until Discontinu ed, Routine metOLazone 2019-0 Yes 2.5mg 2.5 mg, Uni vers (ZAROXOLYN) - Oral, ity of tablet 2.5 21:00: DAILY, [place] mg 00 First dose Medical on [facility] 10/14/19 at 1600, Until Discontinu ed, Routine furosemide 2019-0 2020- No 80mg 80 mg, IV U nivers (LASIX) 10-13 Push, ity of injection 20:45: 15:01 Q12H, [place] 80 mg 00 :58 First dose Medical on [facility] Branch 10/14/19 at 1545, Until Discontinu ed, Routine ondansetron 2019-0 Yes 4mg 4 mg, Slow Univers (ZOFRAN 6-10 IV Push, ity of (PF)) 19:11: Q6HPRN, [place] injection 4 00 Starting Medi ramses mg [facility] Branch 10/14/19 at 1411, Until Discontinu ed, Routine, Nausea and Vomiting (N/V) HYDROcodone 2020-0 2020- No 1{tbl} 1 tablet, Univers -acetaminop 10-13 Oral, ity of hen (NORCO 19:10: 19:09 Q6HPRN, [place] 5) 5-325 mg 49 :49 Starting Medi ramses tablet 1 [facility] tablet 10/14/19 at 1410, Until 10/16/19 at 1409, Routine, Pain (scale 4-6) acetaminoph 2020-0 Yes 650mg 650 mg, Un letitia en 6-10 Oral, ity of (TYLENOL) 19:10: Q6HPRN, [place] tablet 650 42 Starting Medic al mg Wed Branch 10/14/19 at 1410, Until Discontinu ed, Routine, Pain (scale 1-3) metoprolol 2020-0 Yes 50mg 50 mg, Unive rs succinate 5-16 Oral, QAM, ity of XL (TOPROL 14:00: First dose [place] XL) tablet 00 on [facility] Medical 50 mg 09/19/19 at Branch 0900, Until Discontinu ed, Routine KCL 2020-0 Yes 40meq 40 mEq, Univers (KLOR-CON 5-16 Oral, BID, ity of M20) tablet 13:30: First dose [place] 40 mEq 00 on [facility] Medical 09/19/19 at Branch 0830, Until Discontinu ed, Routine metoprolol 2020-0 Yes 25mg 25 mg, Unive rs succinate 5-16 Oral, QHS, ity of XL (TOPROL 02:00: First dose [place] XL) tablet 00 on Sat Medical 25 mg 09/18/19 at Branch 2100, Until Discontinu ed, Routine KCL 20 mEq 2020-0 Yes [id number] 40meq Take 2 Univers tablet 5-16 tablets by ity of 00:00: mouth [place] 00 daily. Medical Branch metoprolol 2020-0 Yes [id number] Take 50 mg Univers succinate 5-16 qam, 25 mg ity of XL 25 mg 24 00:00: qhs [place] hr tablet 00 Medical Branch clopidogreL 2020-0 Yes [id number] 75mg Take 1 Univers 75 mg 5-16 tablet by ity of tablet 00:00: mouth [place] 00 daily. Medical Branch atorvastati 2020-0 Yes [id number] 40mg Take 1 Univers n 40 mg 5-16 tablet by ity of tablet 00:00: mouth at [place] 00 bedtime. Medical Branch furosemide 2020-0 Yes [id number] 80mg Take 1 U nivers 80 mg 5-16 tablet by ity of tablet 00:00: mouth [place] 00 every Medical morning Branch and evening. KCL 20 mEq 2020-0 Yes [id number] 40meq Take 2 Univers tablet 5-16 tablets by ity of 00:00: mouth [place] 00 daily. Medical Branch metoprolol 2020-0 Yes [id number] Take 50 mg Univers succinate 5-16 qam, 25 mg ity of XL 25 mg 24 00:00: qhs [place] hr tablet 00 Medical Branch clopidogreL 2020-0 Yes [id number] 75mg Take 1 Univers 75 mg 5-16 tablet by ity of tablet 00:00: mouth [place] 00 daily. Medical Branch atorvastati 2020-0 Yes [id number] 40mg Take 1 Univers n 40 mg 5-16 tablet by ity of tablet 00:00: mouth at [place] 00 bedtime. Medical Branch furosemide 2020-0 Yes [id number] 80mg Take 1 U nivers 80 mg 5-16 tablet by ity of tablet 00:00: mouth [place] 00 every Medical morning Branch and evening. KCL 20 mEq 2020-0 Yes [id number] 40meq Take 2 Univers tablet 5-16 tablets by ity of 00:00: mouth [place] 00 daily. Medical Branch metoprolol 2020-0 Yes [id number] Take 50 mg Univers succinate 5-16 qam, 25 mg ity of XL 25 mg 24 00:00: qhs [place] hr tablet 00 Medical Branch clopidogreL 2020-0 Yes [id number] 75mg Take 1 Univers 75 mg 5-16 tablet by ity of tablet 00:00: mouth [place] 00 daily. Medical Branch atorvastati 2020-0 Yes [id number] 40mg Take 1 Univers n 40 mg 5-16 tablet by ity of tablet 00:00: mouth at [place] 00 bedtime. Medical Branch furosemide 2020-0 Yes [id number] 80mg Take 1 U nivers 80 mg 5-16 tablet by ity of tablet 00:00: mouth [place] 00 every Medical morning Branch and evening. KCL 20 mEq 2020-0 Yes [id number] 40meq Take 2 Univers tablet 5-16 tablets by ity of 00:00: mouth [place] 00 daily. Medical Branch metoprolol 2020-0 Yes [id number] Take 50 mg Univers succinate 5-16 qam, 25 mg ity of XL 25 mg 24 00:00: qhs [place] hr tablet 00 Medical Branch clopidogreL 2020-0 Yes [id number] 75mg Take 1 Univers 75 mg 5-16 tablet by ity of tablet 00:00: mouth [place] 00 daily. Medical Branch atorvastati 2020-0 Yes [id number] 40mg Take 1 Univers n 40 mg 5-16 tablet by ity of tablet 00:00: mouth at [place] 00 bedtime. Medical Branch furosemide 2020-0 Yes [id number] 80mg Take 1 U nivers 80 mg 5-16 tablet by ity of tablet 00:00: mouth [place] 00 every Medical morning Branch and evening. KCL 20 mEq 2020-0 Yes [id number] 40meq Take 2 Univers tablet 5-16 tablets by ity of 00:00: mouth [place] 00 daily. Medical Branch metoprolol 2020-0 Yes [id number] Take 50 mg Univers succinate 5-16 qam, 25 mg ity of XL 25 mg 24 00:00: qhs [place] hr tablet 00 Medical Branch clopidogreL 2020-0 Yes [id number] 75mg Take 1 Univers 75 mg 5-16 tablet by ity of tablet 00:00: mouth [place] 00 daily. Medical Branch atorvastati 2020-0 Yes [id number] 40mg Take 1 Univers n 40 mg 5-16 tablet by ity of tablet 00:00: mouth at [place] 00 bedtime. Medical Branch furosemide 2020-0 Yes [id number] 80mg Take 1 U nivers 80 mg 5-16 tablet by ity of tablet 00:00: mouth [place] 00 every Medical morning Branch and evening. KCL 20 mEq 2020-0 Yes [id number] 40meq Take 2 Univers tablet 5-16 tablets by ity of 00:00: mouth [place] 00 daily. Medical Branch metoprolol 2020-0 Yes [id number] Take 50 mg Univers succinate 5-16 qam, 25 mg ity of XL 25 mg 24 00:00: qhs [place] hr tablet 00 Medical Branch clopidogreL 2020-0 Yes [id number] 75mg Take 1 Univers 75 mg 5-16 tablet by ity of tablet 00:00: mouth [place] 00 daily. Medical Branch atorvastati 2020-0 Yes [id number] 40mg Take 1 Univers n 40 mg 5-16 tablet by ity of tablet 00:00: mouth at [place] 00 bedtime. Medical Branch furosemide 2020-0 Yes [id number] 80mg Take 1 U nivers 80 mg 5-16 tablet by ity of tablet 00:00: mouth [place] 00 every Medical morning Branch and evening. clopidogreL 2020-0 Yes [id number] 75mg Take 1 Univers 75 mg 5-16 tablet by ity of tablet 00:00: mouth [place] 00 daily. Medical Branch atorvastati 2020-0 Yes [id number] 40mg Take 1 Univers n 40 mg 5-16 tablet by ity of tablet 00:00: mouth at [place] 00 bedtime. Medical Branch clopidogreL 2020-0 Yes [id number] 75mg Take 1 Univers 75 mg 5-16 tablet by ity of tablet 00:00: mouth [place] 00 daily. Medical Branch atorvastati 2019-0 Yes [id number] 40mg Take 1 Univers n 40 mg 5-16 tablet by ity of tablet 00:00: mouth at [place] [address] bedtime. Medical Branch clopidogreL 2019-0 Yes [id number] 75mg Take 1 Univers 75 mg 5-16 tablet by ity of tablet 00:00: mouth [place] 00 daily. Medical Branch atorvastati 2019-0 Yes [id number] 40mg Take 1 Univers n 40 mg 5-16 tablet by ity of tablet 00:00: mouth at [place] [address] bedtime. Medical Branch clopidogreL 2019-0 2020- No [id number] 75mg Take 1 Univers 75 mg 5-16 08-27 tablet by ity of tablet 00:00: 00:00 mouth [place] 00 :00 daily. Medical Branch atorvastati 2019-0 2020- No [id number] 40mg Take 1 Univers n 40 mg 5-16 08-27 tablet by ity of tablet 00:00: 00:00 mouth at [place] 00 :00 bedtime. Medical Branch KCL 20 mEq 2019-0 2020- No [id number] 40meq Take 2 Univers tablet 16 - tablets by ity of 00:00: 00:00 mouth [place] 00 :00 daily. Medical Branch metoprolol 2019-0 2020- No [id number] Take 50 mg Univers succinate -19 10-13 qam, 25 mg ity of XL 25 mg 24 00:00: 00:00 qhs [place] hr tablet 00 :00 Medical Branch furosemide 2019-0 2020- No [id number] 80mg Take 1 Univers 80 mg -19 10- tablet by ity of tablet 00:00: 00:00 mouth [place] 00 :00 every Medical morning Branch and evening. metOLazone 2019-0 2020- No 2.5mg 2.5 mg, Un letitia (ZAROXOLYN) 5-15 05-15 Oral, ity of tablet 2.5 16:45: 17:55 ONCE, 1 [place] mg 00 :00 dose, Fri Medical 09/18/19 at Branch 1145, Routine furosemide 2019-0 Yes 40mg 40 mg, IV Un letitia (LASIX) 5-14 Push, TID, ity of injection 19:00: First dose [place] 40 mg 00 on [place] Medical 09/17/19 at Branch 1400, Until Discontinu ed, Routine spironolact 2020-0 Yes 50mg 50 mg, Univ ers one 5-14 Oral, ity of (ALDACTONE) 16:45: DAILY, [place] tablet 50 00 First dose Medi ramses mg on [facility] 09/17/19 at 1145, Until Discontinu ed, Routine traMADol 2020-0 Yes 50mg 50 mg, Univers (ULTRAM) 5-14 Oral, ity of tablet 50 15:25: Q4HPRN, [place] mg 52 Starting Medical [facility] 09/17/19 at 1025, Until Discontinu ed, Routine, Pain (scale 4-6) acetaminoph 2020-0 Yes 1000mg 1,000 mg, Univers en 5-14 Oral, ity of (TYLENOL) 15:25: Q6HPRN, [place] tablet 41 Starting Medical 1,000 mg [facility] 09/17/19 at 1025, Until Discontinu ed, Routine, Pain (scale 1-3) clopidogreL 2020-0 Yes 75mg 75 mg, Univ ers (PLAVIX) 5-14 Oral, ity of tablet 75 14:00: DAILY, [place] mg 00 First dose Medical on [facility] 09/17/19 at 0900, Until Discontinu ed, Routine aspirin 2020-0 Yes 81mg 81 mg, Univers chewable - Oral, ity of tablet 81 14:00: DAILY, [place] mg 00 First dose Medical on [facility] 09/17/19 at 0900, Until Discontinu ed, Routine enoxaparin 2020-0 Yes 40mg 40 mg, Unive rs (LOVENOX) 5-14 Subcutaneo ity of injection 14:00: us, DAILY, [place] 40 mg 00 First dose Medical on [facility] 09/17/19 at 0900, Until Discontinu ed, Routine atorvastati 2020-0 Yes 80mg 80 mg, Univ ers n (LIPITOR) 5-14 Oral, QHS, it y of tablet 80 02:00: First dose [place] mg 00 on [facility] 09/16/19 at Branch 2100, Until Discontinu ed, Routine metoprolol 2020-0 2020- No 25mg 25 mg, Univ ers succinate 5-14 05-15 Oral, BID, ity of XL (TOPROL 01:00: 15:43 First dose [place] XL) tablet 00 :39 on Sat Medical 25 mg 09/16/19 at Branch 2000, Until Discontinu ed, Routine nicotine 2020-0 Yes 1{patch 1 Patch, Un letitia (NICODERM) 09-16 } Topical, ity o f 14 mg/24 hr 00:00: Administer [place] patch 1 00 over 24 Medical Patch Hours, Branch Q24H, First dose on Sat09/16/19 at 1900, Until Discontinu ed, Routine furosemide 2019- 2020- No 40mg 40 mg, IV U nivers (LASIX) 09-15 05-14 Push, ity of injection 23:00: 16:31 Q12H, [place] 40 mg 00 :47 First dose Medical on Sat Branch 09/16/19 at 1800, Until Discontinu ed, Routine nitroglycer 2019-0 Yes .4mg 0.4 mg, Uni vers in 09-15 Sublingual ity of (NITROSTAT) 22:47: , Q5MIN [place] as sublingual 27 PRN, Medical tablet 0.4 Starting Branc h mg Sat09/16/19 at 1747, Until Discontinu ed, Routine, Chest pain iohexol 2019- No 120mL 120 mL, Unive rs (OMNIPAQUE 08-26 Intravenou it y of 350 18:05: 18:05 s, ONCE, 1 [place] BULK-150 00 :00 dose, [place] Medica l mL) 08/27/19 at Branch injection 1315, 120 mL Routine ketorolac 2019-0 2020- No 30mg 30 mg, Unive rs (TORADOL) 08-26 Slow IV ity of injection 17:45: 16:49 Push, [place] 30 mg 00 :00 ONCE, 1 Medical dose, [place] Branch 08/27/19 at 1245, ZAY
Fa culty member approving Restricted medication : DONG LEI nitroglycer 2019-0 2020- No .4mg Place 0.4 Univers in 0.4 mg 08-21-18 mg under ity o f sublingual 15:19: 00:00 the tongue [place] tablet 31 :00 every 5 Medical (five) Branch minutes as needed for Chest pain. aspirin 2019-0 2020- No 81mg Take 81 mg Uni vers (ADULT LOW 18 04-18 by mouth ity of DOSE 15:19: 00:00 daily. [place] ASPIRIN) 81 31 :00 Medical mg EC Branch tablet atorvastati 2019-0 2020- No 80mg Take 80 mg Univers n 80 mg 4-18 04-18 by mouth ity of tablet 15:19: 00:00 at [place] 31 :00 bedtime. Medical Branch clopidogreL 2019-0 2020- No 75mg Take 75 mg Univers 75 mg 4-18 04-18 by mouth ity of tablet 15:19: 00:00 daily. [place] 31 :00 Medical Branch HYDROcodone 2019-0 Yes 1{tbl} 1 tablet, Univers -acetaminop 4-18 Oral, ity of hen (NORCO) 02:14: Q6HPRN, [place] 10-325 mg 39 Starting Medica l tablet 1 Sat Branch tablet 08/21/19 at 2114, Until Discontinu ed, Routine, Pain (scale 7-10) metoprolol 2019-0 Yes 25mg 25 mg, Unive rs succinate 4-18 Oral, BID, ity of XL (TOPROL 01:00: First dose [place] XL) tablet 00 on Sat Medical 25 mg 08/21/19 at Branch 2000, Until Discontinu ed, Routine atorvastati 2019-0 Yes [id number] 80mg Take 1 Univers n 80 mg 4-18 tablet by ity of tablet 00:00: mouth at [place] 00 bedtime. Medical Branch clopidogreL 2019-0 Yes [id number] 75mg Take 1 Univers 75 mg 4-18 tablet by ity of tablet 00:00: mouth [place] 00 daily. Medical Branch aspirin 2019-0 Yes [id number] 81mg Take 1 Univ ers (ADULT LOW 4-18 tablet by ity of DOSE 00:00: mouth [place] ASPIRIN) 81 00 daily. Medica l mg EC Branch tablet nitroglycer 2019-[id number] 1 Univers in 0.4 mg 4-18 tablet ity of sublingual 00:00: under the [place] tablet 00 tongue Medical every 5 Branch (five) minutes as needed for Chest pain. metoprolol 2020-0 Yes [id number] 25mg Take 1 U nivers succinate 4-18 tablet by ity o f XL 25 mg 24 00:00: mouth 2 [place] as hr tablet 00 (two) Medical times Branch daily. atorvastati 2019-0 Yes [id number] 80mg Take 1 Univers n 80 mg 4-18 tablet by ity of tablet 00:00: mouth at [place] 00 bedtime. Medical Branch clopidogreL 2020-0 Yes [id number] 75mg Take 1 Univers 75 mg 4-18 tablet by ity of tablet 00:00: mouth [place] 00 daily. Medical Branch aspirin 2020-0 Yes [id number] 81mg Take 1 Univ ers (ADULT LOW 4-18 tablet by ity of DOSE 00:00: mouth [place] ASPIRIN) 81 00 daily. Medica l mg EC Branch tablet nitroglycer 2020-[id number] 1 Univers in 0.4 mg 4-18 tablet ity of sublingual 00:00: under the [place] tablet 00 tongue Medical every 5 Branch (five) minutes as needed for Chest pain. metoprolol 2020-0 Yes [id number] 25mg Take 1 U nivers succinate 4-18 tablet by ity o f XL 25 mg 24 00:00: mouth 2 [place] hr tablet 00 (two) Medical times Branch daily. atorvastati 2020-0 Yes [id number] 80mg Take 1 Univers n 80 mg 4-18 tablet by ity of tablet 00:00: mouth at [place] 00 bedtime. Medical Branch clopidogreL 2020-0 Yes [id number] 75mg Take 1 Univers 75 mg 4-18 tablet by ity of tablet 00:00: mouth [place] 00 daily. Medical Branch aspirin 2020-0 Yes [id number] 81mg Take 1 Univ ers (ADULT LOW 4-18 tablet by ity of DOSE 00:00: mouth [place] ASPIRIN) 81 00 daily. Medica l mg EC Branch tablet nitroglycer 2020-[id number] 1 Univers in 0.4 mg 4-18 tablet ity of sublingual 00:00: under the [place] tablet 00 tongue Medical every 5 Branch (five) minutes as needed for Chest pain. metoprolol 2020-0 Yes [id number] 25mg Take 1 U nivers succinate 4-18 tablet by ity o f XL 25 mg 24 00:00: mouth 2 [place] as hr tablet 00 (two) Medical times Branch daily. atorvastati 2020-0 Yes [id number] 80mg Take 1 Univers n 80 mg 4-18 tablet by ity of tablet 00:00: mouth at [place] 00 bedtime. Medical Branch clopidogreL 2020-0 Yes [id number] 75mg Take 1 Univers 75 mg 4-18 tablet by ity of tablet 00:00: mouth [place] 00 daily. Medical Branch aspirin 2020-0 Yes [id number] 81mg Take 1 Univ ers (ADULT LOW 4-18 tablet by ity of DOSE 00:00: mouth [place] ASPIRIN) 81 00 daily. Medica l mg EC Branch tablet nitroglycer 2020-[id number] 1 Univers in 0.4 mg 4-18 tablet ity of sublingual 00:00: under the [place] tablet 00 tongue Medical every 5 Branch (five) minutes as needed for Chest pain. metoprolol 2020-0 Yes [id number] 25mg Take 1 U nivers succinate 4-18 tablet by ity o f XL 25 mg 24 00:00: mouth 2 [place] as hr tablet 00 (two) Medical times Branch daily. atorvastati 2020-0 Yes [id number] 80mg Take 1 Univers n 80 mg 4-18 tablet by ity of tablet 00:00: mouth at [place] 00 bedtime. Medical Branch clopidogreL 2020-0 Yes [id number] 75mg Take 1 Univers 75 mg 4-18 tablet by ity of tablet 00:00: mouth [place] 00 daily. Medical Branch aspirin 2020-0 Yes [id number] 81mg Take 1 Univ ers (ADULT LOW 4-18 tablet by ity of DOSE 00:00: mouth [place] ASPIRIN) 81 00 daily. Medica l mg EC Branch tablet nitroglycer 2020-[id number] 1 Univers in 0.4 mg 4-18 tablet ity of sublingual 00:00: under the [place] tablet 00 tongue Medical every 5 Branch (five) minutes as needed for Chest pain. metoprolol 2020-0 Yes [id number] 25mg Take 1 U nivers succinate 4-18 tablet by ity o f XL 25 mg 24 00:00: mouth 2 [place] hr tablet 00 (two) Medical times Branch daily. aspirin 2020-0 Yes [id number] 81mg Take 1 Univ ers (ADULT LOW 4-18 tablet by ity of DOSE 00:00: mouth [place] ASPIRIN) 81 00 daily. Medica l mg EC Branch tablet nitroglycer 2020-[id number] 1 Univers in 0.4 mg 4-18 tablet ity of sublingual 00:00: under the [place] tablet 00 tongue Medical every 5 Branch (five) minutes as needed for Chest pain. aspirin 2020-0 Yes [id number] 81mg Take 1 Univ ers (ADULT LOW 4-18 tablet by ity of DOSE 00:00: mouth [place] ASPIRIN) 81 00 daily. Medica l mg EC Branch tablet nitroglycer 2020-[id number] 1 Univers in 0.4 mg 4-18 tablet ity of sublingual 00:00: under the [place] tablet 00 tongue Medical every 5 Branch (five) minutes as needed for Chest pain. aspirin 2020-0 Yes [id number] 81mg Take 1 Univ ers (ADULT LOW 4-18 tablet by ity of DOSE 00:00: mouth [place] ASPIRIN) 81 00 daily. Medica l mg EC Branch tablet nitroglycer 2020-[id number] 1 Univers in 0.4 mg 4-18 tablet ity of sublingual 00:00: under the [place] tablet 00 tongue Medical every 5 Branch (five) minutes as needed for Chest pain. aspirin 2020-0 Yes [id number] 81mg Take 1 Univ ers (ADULT LOW 4-18 tablet by ity of DOSE 00:00: mouth [place] ASPIRIN) 81 00 daily. Medica l mg EC Branch tablet nitroglycer 2020-[id number] 1 Univers in 0.4 mg 4-18 tablet ity of sublingual 00:00: under the [place] tablet 00 tongue Medical every 5 Branch (five) minutes as needed for Chest pain. aspirin 2020-0 Yes [id number] 81mg Take 1 Univ ers (ADULT LOW 4-18 tablet by ity of DOSE 00:00: mouth [place] ASPIRIN) 81 00 daily. Medica l mg EC Branch tablet nitroglycer 2020-[id number] 1 Univers in 0.4 mg 4-18 tablet ity of sublingual 00:00: under the [place] tablet 00 tongue Medical every 5 Branch (five) minutes as needed for Chest pain. aspirin 2020-0 Yes [id number] 81mg Take 1 Univ ers (ADULT LOW 4-18 tablet by ity of DOSE 00:00: mouth [place] ASPIRIN) 81 00 daily. Medica l mg EC Branch tablet nitroglycer 2020-[id number] 1 Univers in 0.4 mg 4-18 tablet ity of sublingual 00:00: under the [place] tablet 00 tongue Medical every 5 Branch (five) minutes as needed for Chest pain. aspirin 2020-0 Yes [id number] 81mg Take 1 Univ ers (ADULT LOW 4-18 tablet by ity of DOSE 00:00: mouth [place] ASPIRIN) 81 00 daily. Medica l mg EC Branch tablet nitroglycer 2020-[id number] 1 Univers in 0.4 mg 4-18 tablet ity of sublingual 00:00: under the [place] tablet 00 tongue Medical every 5 Branch (five) minutes as needed for Chest pain. aspirin 2020-0 Yes [id number] 81mg Take 1 Univ ers (ADULT LOW 4-18 tablet by ity of DOSE 00:00: mouth [place] ASPIRIN) 81 00 daily. Medica l mg EC Branch tablet nitroglycer 2020-[id number] 1 Univers in 0.4 mg 4-18 tablet ity of sublingual 00:00: under the [place] tablet 00 tongue Medical every 5 Branch (five) minutes as needed for Chest pain. aspirin 2020-0 Yes [id number] 81mg Take 1 Univ ers (ADULT LOW 4-18 tablet by ity of DOSE 00:00: mouth [place] ASPIRIN) 81 00 daily. Medica l mg EC Branch tablet nitroglycer 2020-[id number] 1 Univers in 0.4 mg 4-18 tablet ity of sublingual 00:00: under the [place] tablet 00 tongue Medical every 5 Branch (five) minutes as needed for Chest pain. aspirin 2020-0 Yes [id number] 81mg Take 1 Univ ers (ADULT LOW 4-18 tablet by ity of DOSE 00:00: mouth [place] ASPIRIN) 81 00 daily. Medica l mg EC Branch tablet nitroglycer 2020-[id number] 1 Univers in 0.4 mg 4-18 tablet ity of sublingual 00:00: under the [place] tablet 00 tongue Medical every 5 Branch (five) minutes as needed for Chest pain. aspirin 2020-0 Yes [id number] 81mg Take 1 Univ ers (ADULT LOW 4-18 tablet by ity of DOSE 00:00: mouth [place] ASPIRIN) 81 00 daily. Medica l mg EC Branch tablet nitroglycer 2020-[id number] 1 Univers in 0.4 mg 4-18 tablet ity of sublingual 00:00: under the [place] tablet 00 tongue Medical every 5 Branch (five) minutes as needed for Chest pain. aspirin 2020-0 Yes [id number] 81mg Take 1 Univ ers (ADULT LOW 4-18 tablet by ity of DOSE 00:00: mouth [place] ASPIRIN) 81 00 daily. Medica l mg EC Branch tablet nitroglycer 2019- Yes [id number] .4mg Place 1 Univers in 0.4 mg 4-18 tablet ity of sublingual 00:00: under the [place] tablet 00 tongue Medical every 5 Branch (five) minutes as needed for Chest pain. aspirin 2019-2020- No [id number] 81mg Take 1 Uni vers (ADULT LOW 4-18 03-12 tablet by ity of DOSE 00:00: 00:00 mouth [place] ASPIRIN) 81 00 :00 daily. Medica l mg EC Branch tablet nitroglycer 2019-2020- No [id number] .4mg Place 1 Univers in 0.4 mg 4-18 -12 tablet ity of sublingual 00:00: 00:00 under the [place] tablet 00 :00 tongue Medical every 5 Branch (five) minutes as needed for Chest pain. aspirin 2019-2020- No [id number] 81mg Take 1 Uni vers (ADULT LOW 4-18 -12 tablet by ity of DOSE 00:00: 00:00 mouth [place] ASPIRIN) 81 00 :00 daily. Medica l mg EC Branch tablet nitroglycer 2020- No [id number] .4mg Place 1 Univers in 0.4 mg 4-18 -12 tablet ity of sublingual 00:00: 00:00 under the [place] tablet 00 :00 tongue Medical every 5 Branch (five) minutes as needed for Chest pain. atorvastati 2019-2019- No [id number] 80mg Take 1 Univers n 80 mg 4-18 05-16 tablet by ity of tablet 00:00: 00:00 mouth at [place] 00 :00 bedtime. Medical Branch clopidogreL 2019- No [id number] 75mg Take 1 Univers 75 mg 4-18 05-16 tablet by ity of tablet 00:00: 00:00 mouth [place] 00 :00 daily. Medical Branch metoprolol 2019-2019- No [id number] 25mg Take 1 Univers succinate 4-18 05-16 tablet by ity of XL 25 mg 24 00:00: 00:00 mouth 2 [place] hr tablet 00 :00 (two) Medical times Branch daily. HYDROcodone 2019- 2020- No 1{tbl} 1 tablet, Univers -acetaminop 4-17 -18 Oral, ity of hen (NORCO 23:43: 02:14 Q4HPRN, [place] as 5) 5-325 mg 22 :52 Starting Medi ramses tablet 1 Sat [place] tablet 08/21/19 at 1843, Until 08/21/19 at 2114, Routine, Pain (scale 7-10) tc 2020-0 2020- No 48.5mCi 48.5 Univers 99m-tetrofo 08-20 millicurie i ty of [facility] 19:30: 18:17 , [place] ([facility]) 00 :00 Intravenou Medi ramses injection s, ONCE, 1 Bran ch 48.5 dose, [facility] millicurie 08/21/19 at 1430, Routine Regadenoson 2020-0 2020- No .4mg 0.4 mg, IV Univers (LEXISCAN) 08-20 Push, ity of injection 19:15: 18:16 ONCE, 1 [place] 0.4 mg 00 :00 dose, [facility] Medical 08/21/19 at Branch 1415, Routine
[employer] team member approving Restricted medication : HAMZAH TAYLOR tc 2020-0 2020- No 16.4mCi 16.4 Univers 99m-tetrofo 08-20 [facility] 18:00: 16:50 , [place] ([facility]) 00 :00 Intravenou Medi ramses injection s, ONCE, 1 Bran ch 16.4 dose, [facility] millicurie 08/21/19 at 1300, Routine aspirin 2020-0 Yes 81mg 81 mg, Univers chewable 08-20 Oral, ity of tablet 81 14:00: DAILY, [place] mg 00 First dose Medical on [facility] Branch 08/21/19 at 0900, Until Discontinu ed, Routine clopidogreL 2020-0 Yes 75mg 75 mg, Univ ers (PLAVIX) 08-20 Oral, ity of tablet 75 14:00: DAILY, [place] mg 00 First dose Medical on [facility] Branch 08/21/19 at 0900, Until Discontinu ed, Routine hydralAZINE 2020-0 Yes 10mg 10 mg, Univ ers (APRESOLINE -17 Intravenou it y of ) injection 09:23: s, Q6HPRN, [place] 10 mg 04 Starting Medical [facility] Branch 4/17/20 at 0423, Until Discontinu ed, Routine, Hypertensi on, For SBP > 160, DBP > 100 atorvastati 2019-0 Yes 80mg 80 mg, Univ ers n (LIPITOR) 17 Oral, QHS, it y of tablet 80 02:00: First dose [place] mg [address] [facility] Medical 08/20/19 at Branch 2100, Until Discontinu ed, Routine ondansetron 2019-0 Yes 4mg 4 mg, Slow Univers (ZOFRAN 17 IV Push, ity of (PF)) 01:49: Q6HPRN, [place] injection 4 16 Starting Medi ramses mg [facility] 08/20/19 at 2049, Until Discontinu ed, Routine, Nausea and Vomiting (N/V) metoprolol 2019-0 2020- No 12.5mg 12.5 mg, Univers succinate 08-20 Oral, BID, ity of XL (TOPROL 01:00: 17:38 First dose [place] XL) tablet 00 :[address] [facility] Medical 12.5 mg 08/20/19 at Branch 2000, Until Discontinu ed, Routine sulfur 2019-0 2020- No 5mL 5 mL, Univers hexafluorid 08-2016 Intravenou i ty of e microsphr 00:15: 22:00 s, ONCE, 1 [place] (LUMASON) 00 :00 dose, [facility] Medic al injection 5 08/20/19 at Br anch mL 1915, Routine nicotine 2019-0 Yes 1{patch 1 Patch, Un letitia (NICODERM) 08-19 } Topical, ity o f 21 mg/24 hr 22:45: Administer [place] patch 1 00 over 24 Medical Patch Hours, [place] Q24H, First dose on [facility] 08/20/19 at 1745, Until Discontinu ed, Routine simvastatin 2020-0 2020- No 40mg Take 40 mg Univers 40 mg 08-19 by mouth ity of tablet 21:39: 00:00 at [place] 34 :00 bedtime. Medical Branch nitroglycer 2019-0 Yes .4mg 0.4 mg, Uni vers in 08-19 Sublingual ity of (NITROSTAT) 21:39: , Q5MIN [place] as sublingual 17 PRN, Medical tablet 0.4 Starting Branc h mg [facility] 08/20/19 at 1639, Until Discontinu ed, Routine, Chest pain morpHINE 2019-0 2020- No 4mg 4 mg, Slow Un letitia injection 4 4-16 04-17 IV Push, ity of mg 16:47: 16:46 Q4HPRN, [place] 29 :29 Starting Medical [place] Branch 08/20/19 at 1147, Until 08/21/19 at 1146, Routine, Pain (scale 7-10), Chest pain acetaminoph 2019- Yes 650mg 650 mg, Un [place]ia en 4-16 Oral, ity of (TYLENOL) 16:47: Q6HPRWeott, [place] tablet 650 21 Starting Medic al mg [place] Branch 08/20/19 at 1147, Until Discontinu ed, Routine, Pain (scale 1-3) Vital Signs Vital Name Observation Time Observation Value Comments Source Systolic blood 2021-03-02 20:19:00 124 mm[Hg] Univer sity of [facility] Diastolic blood 2021-03-02 20:19:00 68 [facility]Hg[facility] 2021-03-02 20:19:00 84 /min [facility] Body temperature 2021-03-02 20:19:00 36.78 [place] [facility] Respiratory rate 2021-03-02 20:19:00 16 /min [facility] Oxygen saturation in 2021-03-02 20:19:00 99 /min [facility] Arterial blood by [facility] Pulse oximetry [place] Body weight 2021-03-02 17:52:00 69.854 kg [facility] BMI 2021-03-02 17:52:00 21.48 kg/m2 [facility] Systolic blood 2020-12-27 20:40:00 124 mm[Hg] Univer sity of [facility] Diastolic blood 2020-12-27 20:40:00 83 mm[Hg] Unive rsity [facility] Heart rate 2020-12-27 20:40:00 84 /min [facility] Respiratory rate 2020-12-27 20:40:00 20 /min [facility] Body height 2020-12-27 20:40:00 180.3 cm [facility] Body weight 2020-12-27 20:40:00 70.126 kg Universi ty of [place] [facility] BMI 2020-12-27 20:40:00 21.56 kg/m2 Universi ty of [place] [facility] Systolic blood 2020-12-20 05:25:19 117 mm[Hg] Univer sity of pressure [place] [facility] Diastolic blood 2020-12-20 05:25:19 58 mm[Hg] Unive rsity of pressure [place] [facility] Heart rate 2020-12-20 05:25:19 79 /min Universi ty of [place] [facility] Respiratory rate 2020-12-20 05:25:19 20 /min Univ ersity of [place] [facility] Oxygen saturation in 2020-12-20 05:25:19 100 /min University of Arterial blood by embraase ramses Pulse oximetry Branch Body temperature 2020-12-19 22:49:00 36.89 [place] Univ ersity of [place] [facility] Body height 2020-12-19 22:49:00 180.3 cm Universi ty of [place] [facility] Body weight 2020-12-19 22:49:00 74.844 kg Universi ty of [place] [facility] BMI 2020-12-19 22:49:00 23.01 kg/m2 Universi ty of [place] [facility] Systolic blood 2020-12-16 18:15:00 129 mm[Hg] Univer sity of pressure [place] [facility] Diastolic blood 2020-12-16 18:15:00 61 mm[Hg] Unive rsity of pressure [place] [facility] Heart rate 2020-12-16 18:15:00 73 /min Universi ty of [place] [facility] Oxygen saturation in 2020-12-16 18:15:00 100 /min University of Arterial blood by embraase ramses Pulse oximetry Branch Respiratory rate 2020-12-16 18:05:00 14 /min Univ ersity of [place] [facility] Body temperature 2020-12-16 17:32:00 36.33 [place] Univ ersity of [place] [facility] Body height 2020-12-16 14:03:00 180.3 cm Universi ty of [place] [facility] Body weight 2020-12-16 14:03:00 74.844 kg Universi ty of [place] [facility] BMI 2020-12-16 14:03:00 23.01 kg/m2 Universi ty of [place] [facility] Systolic blood 2020-12-16 14:03:00 128 mm[Hg] Univer sity of pressure [place] [facility] Diastolic blood 2020-12-16 14:03:00 71 mm[Hg] Unive rsity of pressure [place] [facility] Heart rate 2020-12-16 14:03:00 62 /min Universi ty of [place] [facility] Body temperature 2020-12-16 14:03:00 36.83 [place] Univ ersity of [place] [facility] Respiratory rate 2020-12-16 14:03:00 18 /min Univ ersity of [place] [facility] Body height 2020-12-16 14:03:00 180.3 cm Universi ty of [place] [facility] Body weight 2020-12-16 14:03:00 74.844 kg Universi ty of [place] [facility] BMI 2020-12-16 14:03:00 23.01 kg/m2 Universi ty of [place] [facility] Oxygen saturation in 2020-12-16 14:03:00 93 /min University of Arterial blood by [facility] Pulse oximetry Branch Systolic blood 2020-11-24 17:35:00 111 mm[Hg] Univer sity of pressure [place] [facility] Diastolic blood 2020-11-24 17:35:00 61 mm[Hg] Unive rsity of pressure [place] [facility] Heart rate 2020-11-24 17:35:00 76 /min Universi ty of [place] [facility] Body temperature 2020-11-24 17:35:00 36.39 [place] Univ ersity of [place] [facility] Respiratory rate 2020-11-24 17:35:00 18 /min Univ ersity of [place] [facility] Oxygen saturation in 2020-11-24 17:35:00 98 /min University of Arterial blood by [facility] Pulse oximetry Branch Body height 2020-11-23 16:42:00 180.3 cm Universi ty of [place] [facility] Body weight 2020-11-23 16:42:00 73.483 kg Universi ty of [place] [facility] BMI 2020-11-23 16:42:00 22.59 kg/m2 Universi ty of [place] [facility] Systolic blood 2020-11-15 16:17:00 112 mm[Hg] Univer sity of pressure [place] [facility] Diastolic blood 2020-11-15 16:17:00 59 mm[Hg] Unive rsity of pressure [place] [facility] Heart rate 2020-11-15 16:17:00 73 /min Universi ty of [place] [facility] Body height 2020-11-15 16:17:00 180.3 cm Universi ty of [place] [facility] Body weight 2020-11-15 16:17:00 73.846 kg Universi ty of [place] [facility] BMI 2020-11-15 16:17:00 22.71 kg/m2 Universi ty of [place] [facility] Oxygen saturation in 2020-11-15 16:17:00 98 /min University of Arterial blood by [facility] Pulse oximetry Branch Systolic blood 2020-11-15 03:00:00 147 mm[Hg] Univer sity of pressure [place] [facility] Diastolic blood 2020-11-15 03:00:00 75 mm[Hg] Unive rsity of pressure [place] [facility] Heart rate 2020-11-15 03:00:00 92 /min Universi ty of [place] [facility] Respiratory rate 2020-11-15 03:00:00 18 /min Univ ersity of [place] [facility] Oxygen saturation in 2020-11-15 03:00:00 94 /min University of Arterial blood by [facility] Pulse oximetry Branch Body temperature 2020-11-14 20:28:00 36.17 [place] Univ ersity of [place] [facility] Body weight 2020-11-14 20:28:00 75.751 kg Universi ty of [place] [facility] BMI 2020-11-14 20:28:00 23.29 kg/m2 Universi ty of [place] [facility] Systolic blood 2020-11-03 20:20:00 104 mm[Hg] Univer sity of pressure [place] [facility] Diastolic blood 2020-11-03 20:20:00 69 mm[Hg] Unive rsity of pressure [place] [facility] Heart rate 2020-11-03 20:20:00 78 /min Universi ty of [place] [facility] Respiratory rate 2020-11-03 20:20:00 18 /min Univ ersity of [place] [facility] Body height 2020-11-03 20:20:00 180.3 cm Universi ty of [place] [facility] Body weight 2020-11-03 20:20:00 73.846 kg Universi ty of [place] [facility] BMI 2020-11-03 20:20:00 22.71 kg/m2 Universi ty of [place] [facility] Systolic blood 2020-10-27 16:39:00 95 mm[Hg] Univer sity of pressure [place] [facility] Diastolic blood 2020-10-27 16:39:00 60 mm[Hg] Unive rsity of pressure [place] [facility] Heart rate 2020-10-27 16:39:00 80 /min Universi ty of [place] [facility] Body temperature 2020-10-27 16:39:00 35.56 [place] Univ ersity of [place] [facility] Respiratory rate 2020-10-27 16:39:00 20 /min Univ ersity of [place] [facility] Oxygen saturation in 2020-10-27 16:39:00 98 /min University of Arterial blood by [place] [facility]amses Pulse oximetry Branch Body weight 2020-10-27 16:13:00 75.297 kg Universi ty of [place] [facility] BMI 2020-10-27 16:13:00 23.15 kg/m2 Universi ty of [place] [facility] Systolic blood 2020-10-25 16:35:00 106 mm[Hg] Univer sity of pressure [place] [facility] Diastolic blood 2020-10-25 16:35:00 75 mm[Hg] Unive rsity of pressure [place] [facility] Heart rate 2020-10-25 16:35:00 58 /min Universi ty of [place] [facility] Body temperature 2020-10-25 16:35:00 36.11 [place] Univ ersity of [place] [facility] Respiratory rate 2020-10-25 16:35:00 20 /min Univ ersity of [place] [facility] Oxygen saturation in 2020-10-25 16:35:00 98 /min University of Arterial blood by [place] [facility] ramses Pulse oximetry Branch Body weight 2020-10-25 08:24:00 75.978 kg Universi ty of [place] [facility] BMI 2020-10-25 08:24:00 23.36 kg/m2 Universi ty of [place] [facility] Body height 2020-10-24 20:44:00 180.3 cm Universi ty of [place] [facility] Oxygen saturation in 2020-08-31 20:28:00 99 /min University of Arterial blood by [place] [facility] ramses Pulse oximetry Branch Systolic blood 2020-08-31 20:28:00 108 mm[Hg] Univer sity of pressure [place] [facility] Diastolic blood 2020-08-31 20:28:00 71 mm[Hg] Unive rsity of pressure [facility] Heart rate 2020-08-31 20:28:00 85 /min Universi ty of [place] [facility] [place] Body height 2020-08-31 20:28:00 180.3 cm Universi ty of [place] [facility] [place] Body weight 2020-08-31 20:28:00 70.852 kg Universi ty of [facility] BMI 2020-08-31 20:28:00 21.79 kg/m2 Universi ty of [facility] Systolic blood 2020-07-15 21:42:00 136 mm[Hg] Univer sity of pressure [facility] Diastolic blood 2020-07-15 21:42:00 90 mm[Hg] Unive rsity of pressure [facility] Heart rate 2020-07-15 21:42:00 113 /min Universi ty of [facility] Body height 2020-07-15 21:42:00 180.3 cm Universi ty of [facility] Body weight 2020-07-15 21:42:00 71.714 kg Universi ty of [place] [facility] [place] BMI 2020-07-15 21:42:00 22.05 kg/m2 Universi ty of [facility] Systolic blood 2020-01-01 20:38:00 115 mm[Hg] Univer sity of pressure [facility] Diastolic blood 2020-01-01 20:38:00 75 mm[Hg] Unive rsity of pressure [facility] Heart rate 2020-01-01 20:38:00 74 /min Universi ty of [facility] Body temperature 2020-01-01 20:38:00 36.67 [place] Univ ersity of [facility] Respiratory rate 2020-01-01 20:38:00 18 /min Univ ersity of [facility] Oxygen saturation in 2020-01-01 20:38:00 100 /min University Arterial blood by [facility] Pulse oximetry Branch Body weight 2019-12-30 12:00:00 69.899 kg Universi ty of [place] [facility] [place] BMI 2019-12-30 12:00:00 21.49 kg/m2 Universi ty of [facility] Body height 2019-12-29 05:45:00 180.3 cm Universi ty of [facility] Systolic blood 2019-10-17 16:52:00 101 mm[Hg] Univer sity of pressure [place] [facility] Diastolic blood 2019-10-17 16:52:00 75 mm[Hg] [facility] Heart rate 2019-10-17 16:52:00 81 /min [facility] Body temperature 2019-10-17 16:52:00 37 [place] [facility] Respiratory rate 2019-10-17 16:52:00 18 /min [facility] Oxygen saturation in 2019-10-17 16:52:00 95 /min [facility] Arterial blood by [facility] Pulse oximetry Branch Body weight 2019-10-17 08:37:00 62.46 kg [facility] BMI 2019-10-17 08:37:00 18.94 kg/m2 [facility] Body height 2019-10-14 18:47:00 181.6 cm [facility] Systolic blood 2019-10-14 16:54:00 102 mm[Hg] manual [facility] Diastolic blood 2019-10-14 16:54:00 62 mm[Hg] manual [facility] Heart rate 2019-10-14 16:54:00 105 /min [facility] Respiratory rate 2019-10-14 16:54:00 20 /min [facility] Body height 2019-10-14 16:54:00 181.6 cm [facility] Body weight 2019-10-14 16:54:00 77.61 kg [facility] BMI 2019-10-14 16:54:00 23.53 kg/m2 [facility] Oxygen saturation in 2019-10-14 16:54:00 99 /min [facility] Arterial blood by [facility] Pulse oximetry Branch Systolic blood 2019-09-19 16:35:00 120 mm[Hg] [facility] Diastolic blood 2019-09-19 16:35:00 95 mm[Hg] [facility] Heart rate 2019-09-19 16:35:00 80 /min [facility] Body temperature 2019-09-19 16:35:00 36.67 [place] [facility] Respiratory rate 2019-09-19 16:35:00 20 /min [facility] Oxygen saturation in 2019-09-19 16:35:00 95 /min [facility] by [place] [facility] Pulse oximetry Branch Body weight 2019-09-17 01:08:00 82.827 kg [facility] BMI 2019-09-17 01:08:00 26.20 kg/m2 [facility] Systolic blood 2019-09-16 20:00:00 119 mm[Hg] [facility] Diastolic blood 2019-09-16 20:00:00 87 mm[Hg] [facility] Heart rate 2019-09-16 20:00:00 110 /min [facility] Respiratory rate 2019-09-16 20:00:00 18 /min [facility] Body height 2019-09-16 20:00:00 177.8 cm [facility] Body weight 2019-09-16 20:00:00 82.146 kg [facility] BMI 2019-09-16 20:00:00 25.99 kg/m2 [facility] Oxygen saturation in 2019-09-16 20:00:00 100 /min [facility] by [place] [facility] Pulse oximetry Branch Systolic blood 2019-08-27 18:00:00 136 mm[Hg] [facility] Diastolic blood 2019-08-27 18:00:00 88 mm[Hg] [facility] Heart rate 2019-08-27 18:00:00 99 /min [facility] Respiratory rate 2019-08-27 18:00:00 20 /min [facility] Oxygen saturation in 2019-08-27 18:00:00 99 /min [facility] Arterial blood by [place] [facility] Pulse oximetry Branch Body temperature 2019-08-27 15:23:00 36.17 [place] [facility] Body height 2019-08-27 15:23:00 177.8 cm [facility] Body weight 2019-08-27 15:23:00 81.647 kg [facility] BMI 2019-08-27 15:23:00 25.83 kg/m2 [facility] Systolic blood 2019-08-22 12:44:00 123 mm[Hg] Univer sity of pressure [facility] Diastolic blood 2019-08-22 12:44:00 99 mm[Hg] Unive rsity of pressure [facility] Heart rate 2019-08-22 12:44:00 97 /min [facility] Body temperature 2019-08-22 12:44:00 36.11 Elham [facility] Respiratory rate 2019-08-22 12:44:00 18 /min [facility] Oxygen saturation in 2019-08-22 12:44:00 100 /min [facility] Arterial blood by [facility] Pulse oximetry [place] Body height 2019-08-21 18:01:00 180.3 cm [facility] Body weight 2019-08-21 18:01:00 77.565 kg [facility] BMI 2019-08-21 18:01:00 23.85 kg/m2 [facility] Body Temperature 2019-11-12 19:15:00 97.6 [degF] [facility] Heart Rate 2019-11-12 19:15:00 89 /min [facility] Respiratory rate 2019-11-12 19:15:00 18 /min [facility] BP Systolic 2019-11-12 19:15:00 126 mm[Hg] [facility] BP Diastolic 2019-11-12 19:15:00 96 mm[Hg] [facility] Heart Rate 2019-11-12 19:14:00 89 /min [facility] Respiratory rate 2019-11-12 19:14:00 18 /min [facility] BP Systolic 2019-11-12 19:14:00 126 mm[Hg] [facility] BP Diastolic 2019-11-12 19:14:00 96 mm[Hg] [facility] Weight 2019-11-12 11:11:00 161.06 [lb_av] [facility] BMI (Body Mass 2019-11-12 11:11:00 22.5 kg/m2 [facility] Health Index) Procedures Procedure Date / Time Performing Clinician Source Performed MAGNESIUM 2021-03-02 18:35:00 London Sotomayor [place] [facility] COMP. METABOLIC PANEL 2021-03-02 18:35:00 London Sotomayor [facility] ([id number]) Medical Branch CBC WITH DIFF 2021-03-02 18:35:00 London Sotomayor Maria [facility] URINALYSIS 2021-03-02 18:35:00 London Sotomayor [facility] CONSENT/REFUSAL FOR 2021-03-02 17:46:47 Doctor Anupama [facility] DIAGNOSIS AND TREATMENT [facility] ABDOMEN PELVIS WO 2020-12-20 04:16:[address] [facility] CONTRAST Medical [place] URINALYSIS 2020-12-20 04:00:00 Quique Dong [facility] COMP. METABOLIC PANEL 2020-12-20 01:55:00 Dong Lei [facility] ([id number]) Medical Branch CBC WITH DIFF 2020-12-20 01:55:00 Quique [facility] XR KUB 2020-12-20 00:24:24 Quique [facility] NOTICE OF PRIVACY 2020-12-19 22:41:14 Doctor Anupama, [facility] PRACTICES [facility] CONSENT/REFUSAL FOR 2020-12-19 22:39:12 Doctor Anupama, [facility] DIAGNOSIS AND TREATMENT [facility] FL TIME OR 2020-12-16 17:21:26 [facility] [place] TIME OR 2020-12-16 17:21:26 [facility] COVID-19 (ID NOW RAPID 2020-12-16 13:32:00 [facility] Medical Branch COVID-19 (ID NOW RAPID 2020-12-16 13:32:00 Aamir, [facility] TESTING) Medical Branch LAB ONLY COVID 2020-12-16 13:32:00 Cordelia Rutledge [facility] INTERPRETATION [facility] URETEROSCOPIC STONE 2020-12-16 13:25:00 Cordelia Rutledge [facility] MANIPULATION Medical Branch ASSIGNMENT OF BENEFITS 2020-12-16 13:17:43 Doctor Anupama, [facility] MAGNESIUM 2020-11-24 08:04:00 [facility] BASIC METABOLIC PANEL 2020-11-24 08:04:00 Joseph Gonzales [facility] (NA, K, CL, CO2, GLUCOSE, Medica l Branch BUN, CREATININE, CA) CBC WITHOUT DIFF 2020-11-24 08:04:00 Joseph Gonzales [facility] XR CHEST 1 VW 2020-11-23 16:55:00 Ambrosio Pinto [facility] XR CHEST 1 VW 2020-11-23 16:55:00 Ambrosio Pinto [facility] BASIC METABOLIC PANEL 2020-11-23 12:03:00 [facility] (NA, K, CL, CO2, GLUCOSE, Medica l Branch BUN, CREATININE, CA) CBC WITH DIFF 2020-11-23 12:03:00 Boo Leo [facility] PROTHROMBIN TIME / INR 2020-11-23 12:03:00 Boo [facility] COVID-19 (ID NOW RAPID 2020-11-23 11:58:00 Boo [facility] TESTING) Medical Branch LAB ONLY COVID 2020-11-23 11:58:00 Boo [facility] INTERPRETATION [facility] XR HAND 3+ VW LEFT 2020-11-15 01:11:08 Maynor Thompson [facility] CT ABDOMEN PELVIS WO 2020-11-14 22:34:56 Maynor [facility] LIPASE 2020-11-14 22:23:00 Maynor Thompson [facility] COMP. METABOLIC PANEL 2020-11-14 22:23:00 Maynor Thompson [facility] ([id number]) [facility] CBC WITH DIFF 2020-11-14 22:23:00 Maynor Thompson [facility] URINALYSIS 2020-11-14 22:23:00 Maynor Thompson [facility] POCT URINALYSIS AUTO 2020-10-27 16:23:00 Hiren [facility] PHOSPHORUS 2020-10-25 08:57:00 Jet [facility] MAGNESIUM 2020-10-25 08:57:00 Jet [facility] TROPONIN I 2020-10-25 08:57:00 Jet [facility] BASIC METABOLIC PANEL 2020-10-25 08:57:00 Nati Huynh [facility] (NA, K, CL, CO2, GLUCOSE, Medica l Branch BUN, CREATININE, CA) CBC WITH DIFF 2020-10-25 08:57:00 [facility] N-TERMINAL PRO-BNP 2020-10-25 08:57:00 Jet [facility] VITAMIN B12, LEVEL 2020-10-25 04:58:00 Jet [facility] TROPONIN I 2020-10-25 04:58:00 Jet [facility] URINALYSIS 2020-10-25 04:58:00 Jet [facility] VITAMIN D, 25-OH 2020-10-25 04:58:00 Jet [facility] SEDIMENTATION RATE 2020-10-25 01:26:00 Jet [facility] CT ABDOMEN PELVIS WO 2020-10-25 00:52:[address] [facility] CONTRAST [facility] XR CHEST 1 VW 2020-10-24 18:27:41 Dong Lei [facility] PHOSPHORUS 2020-10-24 17:26:00 Jet [facility] URIC ACID 2020-10-24 17:26:00 Jet [facility] MAGNESIUM 2020-10-24 17:26:00 Jet [facility] TROPONIN I 2020-10-24 17:26:00 Dong Lei [facility] THYROID STIMULATING 2020-10-24 17:26:00 Nati Huynh [facility] HORMONE [facility] HEPATIC FUNCTION PANEL 2020-10-24 17:26:00 Dnog Lei [facility] ([id number]) (ALB,T.PRO,BILI Medical Branch T,BU/BC,ALT,AST,ALK PHOS) BASIC METABOLIC PANEL 2020-10-24 17:26:00 Quique Dong [facility] (NA, K, CL, CO2, GLUCOSE, Medica l Branch BUN, CREATININE, CA) LIPID PANEL ([id number])(TOTAL 2020-10-24 17:26:00 Erik Chaudhary [facility] CHOLESTEROL, [facility] TRIGLYCERIDES, HDL) CBC WITH DIFF 2020-10-24 17:26:00 Quique Dong [facility] GLYCOSYLATED HEMOGLOBIN 2020-10-24 17:26:00 Erik Chaudhary [facility] (A1C) [facility] PROTHROMBIN TIME / INR 2020-10-24 17:26:00 Dong Lei [facility] ACTIVATED PARTIAL 2020-10-24 17:26:00 Quique [facility] THRMPLAS MICHAEL [facility] N-TERMINAL PRO-BNP 2020-10-24 17:26:00 [facility] COVID-19 (ID NOW RAPID 2020-10-24 17:26:00 Dong Lei [facility] TESTING) Medical Branch CONSENT/REFUSAL FOR 2020-10-24 17:16:52 Doctor Unassjaky, [facility] DIAGNOSIS AND TREATMENT [facility] HB ECG ROUTINE & RHYTHM 2020-10-24 17:16:11 Dong Lei [facility] STRIP [facility] HOME HEALTH - OTHER 2020-01-14 05:01:00 Doctor Unassjaky, [facility] BASIC METABOLIC PANEL 2020-01-01 08:33:00 Yevgeniy [facility] (NA, K, CL, CO2, GLUCOSE, Medica l Branch BUN, CREATININE, CA) CBC WITH DIFF 2020-01-01 08:33:00 Yevgeniy [facility] BASIC METABOLIC PANEL 2019-12-31 09:05:00 [facility] (NA, K, CL, CO2, GLUCOSE, Medica l Branch BUN, CREATININE, CA) CBC WITH DIFF 2019-12-31 09:05:00 Yevgeniy [facility] TROPONIN I 2019-12-31 01:24:00 Yevgeniy [facility] URIC ACID 2019-12-30 11:14:00 Jet [facility] MAGNESIUM 2019-12-30 11:14:00 Jet [facility] TROPONIN I 2019-12-30 11:14:00 [facility]OLIC PANEL 2019-12-30 11:14:00 [facility] (NA, K, CL, CO2, GLUCOSE, Medica l Branch BUN, CREATININE, CA) CBC WITH DIFF 2019-12-30 11:14:00 Yevgeniy [facility] N-TERMINAL PRO-BNP 2019-12-30 11:14:00 Jet [facility] ECHO ROUTINE W/DOPPLER 2019-12-29 18:06:22 [facility]IN [facility] 2019-12-29 13:23:00 Yevgeniy [facility] N-TERMINAL PRO-BNP 2019-12-29 13:23:00 Jte [facility] TROPONIN I 2019-12-29 08:57:00 Jet [facility] BASIC METABOLIC PANEL 2019-12-29 08:57:00 [facility] (NA, K, CL, CO2, GLUCOSE, Medica l Branch BUN, CREATININE, CA) CBC WITH DIFF 2019-12-29 08:57:00 Yevgeniy [facility] PROCALCITONIN 2019-12-29 08:57:00 [facility] TROPONIN [facility] 2019-12-29 07:07:00 Yevgeniy [facility] PNEUMOCOCCAL ANTIGEN 2019-12-29 07:07:00 [facility] PULMONARY 2019-12-29 03:07:46 London Sotomayor [facility] ANGIOGRAM Medical Branch COVID-19 (ID NOW RAPID 2019-12-29 02:16:00 London Sotomayor [facility] TESTING) Medical Branch EKG-12 LEAD 2019-12-29 00:38:45 Doctor Anupama [facility] LIPASE 2019-12-29 00:37:00 London Sotomayor [facility] TROPONIN I 2019-12-29 00:37:00 London Sotomayor Maria Teresa [facility] COMP. METABOLIC PANEL 2019-12-29 00:37:00 London Sotomayor [facility] ([id number]) Medical Branch CBC WITH DIFF 2019-12-29 00:37:00 London Sotomayor [facility] PROTHROMBIN TIME / INR 2019-12-29 00:37:00 London [facility]otom[facility]or [facility] ACTIVATED PARTIAL 2019-12-29 00:37:00 London Sotomayor Maria [facility] THRMPLAS MICHAEL [facility] N-TERMINAL PRO-BNP 2019-12-29 00:37:00 [facility] E[facility]-12 LEAD 2019-12-29 00:25:38 London Sotomayor [facility] XR CHEST 1 VW 2019-12-29 00:24:59 London Sotomayor Maria Teresa [facility] CONSENT/REFUSAL FOR 2019-12-28 23:37:24 Doctor Anupama [facility] DIAGNOSIS AND TREATMENT [facility] HOSPITAL ADMISSION 2019-12-28 05:01:00 Doctor Anupama, [facility] ECG (electrocardiogram) 2019-11-12 00:00:00 [facility], two views 2019-11-12 00:00:00 [facility] BASIC METABOLIC PANEL 2019-10-17 09:32:00 Nati Huynh [facility] (NA, K, CL, CO2, GLUCOSE, Medica l Branch BUN, CREATININE, CA) BASIC METABOLIC PANEL 2019-10-16 09:38:00 Nati Huynh [facility] (NA, K, CL, CO2, GLUCOSE, Medica [facility] Branch BUN, CREATININE, CA) TROPONIN I 2019-10-15 07:23:00 Joann Harrison [facility] BASIC METABOLIC PANEL 2019-10-15 07:23:00 [facility]ann [facility] [place] (NA, K, CL, CO2, GLUCOSE, Medica l Branch BUN, CREATININE, CA) CBC WITH DIFFERENTIAL 2019-10-15 07:23:00 [facility]ann [facility] TROPONIN I 2019-10-15 01:52:00 Joann Harrison [facility] XR CHEST 1 VW 2019-10-14 20:14:38 Joann Harrison [facility] COVID-19 (ID NOW RAPID 2019-10-14 19:29:00 [facility] Medical Branch MAGNESIUM 2019-10-14 19:21:00 Joann Harrison [facility] TROPONIN I 2019-10-14 19:21:00 Joann Harrison [facility] BASIC METABOLIC PANEL 2019-10-14 19:21:00 [facility] [place] (NA, K, CL, CO2, GLUCOSE, Medica l Branch BUN, CREATININE, CA) CBC WITH DIFFERENTIAL 2019-10-14 19:21:00 Joann Harrison [facility] N-TERMINAL PRO-BNP 2019-10-14 19:21:00 Joann Harrison [facility] ASSIGNMENT OF BENEFITS 2019-10-14 18:28:37 Doctor Unassigned, [facility] [place] [facility] CONSENT/REFUSAL FOR 2019-10-14 18:27:37 Doctor Unassigned, [facility] DIAGNOSIS AND TREATMENT [facility] ASSIGNMENT OF BENEFITS 2019-10-14 16:47:27 Doctor Unassigned, [facility] [place] [facility] BASIC METABOLIC PANEL 2019-09-19 09:14:00 Nati Huynh [facility] (NA, K, CL, CO2, GLUCOSE, Medica l Branch BUN, CREATININE, CA) BASIC METABOLIC PANEL 2019-09-18 14:10:00 Lino [facility] (NA, K, CL, CO2, GLUCOSE, Medica Branch BUN, CREATININE, CA) VITAMIN B12, LEVEL 2019-09-17 17:44:00 Nati [facility] FOLATE 2019-09-17 17:44:00 Lino [facility] IRON PANEL 2019-09-17 17:44:00 Lino [facility] VITAMIN D, 25-OH 2019-09-17 17:44:00 Lino [facility] ECHO ROUTINE W/DOPPLER 2019-09-17 15:02:44 Joann Harrison [facility] PHOSPHORUS 2019-09-17 10:47:00 Jet [facility] MAGNESIUM 2019-09-17 10:47:00 Jet [facility] FERRITIN SERUM 2019-09-17 10:47:00 [facility] 2019-09-17 10:47:00 Hunter Joann Gretchen [facility] COMP. METABOLIC PANEL 2019-09-17 10:47:00 Jet asa [facility] ([id number]) [facility] [place] CBC WITH DIFFERENTIAL 2019-09-17 10:47:00 Joann Harrison [facility] N-TERMINAL PRO-BNP 2019-09-17 10:47:00 Jet [facility] TROPONIN I 2019-09-17 05:04:00 Joann Harrison [facility] PHOSPHORUS 2019-09-17 02:11:00 Joann Harrison [facility] MAGNESIUM 2019-09-17 02:11:00 Hunter Joann Gretchen [facility] HEPATIC FUNCTION PANEL 2019-09-17 02:11:00 Joann Harrison [facility] ([id number]) (ALB,T.PRO,BILI Medical Branch T,BU/BC,ALT,AST,ALK PHOS) BASIC METABOLIC PANEL 2019-09-17 02:11:00 Joann Harrison [facility] (NA, K, CL, CO2, GLUCOSE, Medica l Branch BUN, CREATININE, CA) URINALYSIS 2019-09-17 02:11:00 Joann Harrison [facility] GALV ONLY - URINE DRUG 2019-09-17 02:11:00 Joann Harrison U [facility] (LCMSMS) - DESTINY PANEL Medical Br anch ADC / LCC - DRUG SCREEN 2019-09-17 02:11:00 Joann Harrison [facility] TRIAGE [facility] TROPONIN I 2019-09-16 23:54:00 Joann Harrison [facility] LIPID PANEL ([id number])(TOTAL 2019-09-16 23:54:00 Joann Harrison [facility] CHOLESTEROL, [facility] TRIGLYCERIDES, HDL) CBC WITH DIFFERENTIAL 2019-09-16 23:54:00 Joann Harrison [facility] PROTHROMBIN TIME / INR 2019-09-16 23:54:00 Joann Harrison [facility] ACTIVATED PARTIAL 2019-09-16 23:54:00 Joann Harrison [facility] VW 2019-09-16 23:33:44 Joann Harrison [facility] NOTICE OF PRIVACY 2019-09-16 21:04:28 Doctor Unassigned, [facility] PRACTICES [facility] CONSENT/REFUSAL FOR 2019-09-16 21:04:00 Doctor Unassigned, [facility] DIAGNOSIS AND TREATMENT [facility] ASSIGNMENT OF BENEFITS 2019-09-16 21:03:39 Doctor Unassigned, [facility] CT ABDOMEN PELVIS W 2019-08-27 18:12:12 Dong Lei [facility] CONTRAST [facility] URINALYSIS 2019-08-27 16:07:00 Quique Dong [facility] ADC / [facility] - DRUG SCREEN 2019-08-27 16:07:00 Dong Lei [facility] TRIAGE [facility] XR CHEST 1 VW 2019-08-27 15:58:10 Dong Lei [facility] CREATINE KINASE 2019-08-27 15:41:00 Dong Lei [facility] MAGNESIUM 2019-08-27 15:41:00 Quique [facility] TROPONIN I 2019-08-27 15:41:00 Quique [facility] HEPATIC FUNCTION PANEL 2019-08-27 15:41:00 Dong Lei [facility] ([id number]) (ALB,T.PRO,BILI Medical Branch T,BU/BC,ALT,AST,ALK PHOS) BASIC METABOLIC PANEL 2019-08-27 15:41:00 Quique Dong [facility] (NA, K, CL, CO2, GLUCOSE, Medica l Branch BUN, CREATININE, CA) CBC WITH DIFFERENTIAL 2019-08-27 15:41:00 Quique Dong [facility] PROTHROMBIN TIME / INR 2019-08-27 15:41:00 Dong Lei [facility] ACTIVATED PARTIAL 2019-08-27 15:41:00 Quique [facility] THRMPLAS MICHAEL [facility] N-TERMINAL PRO-BNP 2019-08-27 15:41:00 [facility] FREE T4 2019-08-27 15:40:00 Quique [facility] THYROID STIMULATING 2019-08-27 15:40:00 Dong Lei [facility] HORMONE [facility] ETHANOL 2019-08-27 15:40:00 Quique [facility] EKG-12 LEAD 2019-08-27 15:35:58 Quique [facility] EKG-12 LEAD 2019-08-27 15:28:12 Quique [facility] NM MYOCARDIUM PERFUSION 2019-08-21 19:05:16 Hamzah Taylor [facility] STRESS AND REST [facility] TROPONIN I 2019-08-20 21:55:00 Nati Huynh [facility] ECHO ROUTINE W/DOPPLER 2019-08-20 21:19:58 Nati Huynh [facility] TROPONIN I 2019-08-20 18:14:00 Nati Huynh [facility] URINALYSIS 2019-08-20 14:38:00 Dong Lei [facility] ADC / LCC - DRUG SCREEN 2019-08-20 14:38:00 Dong Lei [facility] TRIAGE [facility] EKG-12 LEAD 2019-08-20 14:34:42 Dong Lei [facility] XR CHEST 1 VW 2019-08-20 13:43:38 Dong Lei [facility] LIPASE 2019-08-20 13:17:00 Quique Dong [facility] TROPONIN I 2019-08-20 13:17:00 Quique Dong [facility] HEPATIC FUNCTION PANEL 2019-08-20 13:17:00 Dong Lei [facility] ([id number]) (ALB,T.PRO,BILI [facility] T,BU/BC,ALT,AST,ALK PHOS) BASIC METABOLIC PANEL 2019-08-20 13:17:00 Dong Lei [facility] (NA, K, CL, CO2, GLUCOSE, Medica l Branch BUN, CREATININE, CA) LIPID PANEL ([id number])(TOTAL 2019-08-20 13:17:00 Hamzah Taylor [facility] TRIGLY[facility], HDL) CBC WITH DIFFERENTIAL 2019-08-20 13:17[facility]00 [facility] GLYCOS[facility]ATED HEMOGLOBIN 2019-08-20 13:17:00 Hamzah Taylor K.H. [facility] (A1C) [facility] PROTHROMBIN TIME / INR 2019-08-20 13:17:00 Dong Lei [facility] ACTIVATED PARTIAL 2019-08-20 13:17:00 Dong Lei [facility] THRMPLAS MICHAEL [facility] N-TERMINAL PRO-BNP 2019-08-20 13:17:00 Dong [facility] CORONAVIRUS COVID-19 2019-08-20 13:17:[address] [facility] TESTING [facility] EKG-12 LEAD 2019-08-20 13:04:48 Dong Lei [facility] Plan of Care Planned Activity Planned Date Details Comments Source Future Scheduled Test Bacterial urine [facility] culture [code = [place] 630-4] Goal Patient referral [facility] [code = 9096299 ] [place] Instructions Heart Failure, Adult IRINA Odom . (DC) [place] Encounters Start End Encounter Admission Attending Care Care Encounter Source Date/Time Date/Time Type Type Clinicians Facility Department ID 2021-03-06 Emergency [facility] [id number] [facility] 15:57:06 ity of [facility] 2021-03-06 Outpatient [facility] AAMIR [facility] VLS [id number] Univers 10:29:01 BILAL ity [facility] 2021-03-06 Emergency [facility] [id number] Univers 07:36:16 ity of [facility] 2021-03-06 [facility]patient [facility]U [id number] Univers 07:10:36 [facility] 2021-03-06 Emergency [facility] [id number] Univers 02:35:18 ity of [facility] 2021-03-03 Emergency [facility] [id number] Univers 14:16:46 ity [facility] 2019-11-12 Inpatient JAVID DE LA CRUZ [id number] CHRISTU 11:09:00 JEFFERY [id number] [facility] 2021-03-22 2021-03-22 [facility] [id number] -20 Univers 13:00:00 13:00:00 BERTRAM [id number] [facility] 2021-03-22 2021-03-22 Outpatient [facility] [id number] Univers 13:00:00 13:00:00 BERTRAM [facility] 2021-03-09 2021-03-09 Telephone [facility] 1.2.436.555 [id number] Univers 00:00:00 00:00:00 Bilal HEALTH 350.1.13.10 it y of [place] 4.2.7.2.686 [facility] s [place] [place] [phone] [place] [address] [address] OFFICE BUILDING 2021-03-08 2021-03-08 [facility] 1.2.840.114 [id number] Univers 00:00:00 00:00:00 Bilal HEALTH 350.1.13.10 it y of [place] 4.2.7.2.686 [facility] [phone] [facility] PRIMARY & [address] SPECIALTY CARE 2021-03-07 2021-03-07 Outpatient R BOO [facility] [id number] -[id number] Univers 08:20:00 08:20:00 LEO [id number] ity of [facility] 2021-03-07 2021-03-07 Outpatient R BOO [facility] [id number] Univers 08:20:00 08:20:00 LEO ity of [facility] 2021-03-03 2021-03-03 Outpatient R COLTON [facility] [id number] Univers 15:20:00 15:20:00 KACIE ity o f [facility] 2021-03-03 2021-03-03 Outpatient R COLTON [facility] [id number] -20 Univers 15:20:00 15:20:00 AMANDADON [id number] ity o f [facility] 2021-03-02 2021-03-02 Emergency X BRAN, K [facility] ERT [id number] Univers 12:55:00 15:22:00 ity of [facility] 2021-03-02 2021-03-02 Emergency Bran, [place] [facility] 1.2.840.114 [id number] Univers 12:55:00 15:22:00 Maria Teresa DEMARCO 350.1.13.10 i ty [facility] 4.2.7.2.686 [facility] [id number] [facility] [address] 2021-02-28 2021-02-28 Outpatient Collin RUTLEDGE [facility] [id number] -20 Univers 09:30:00 09:30:00 BILAL [id number] ity of [facility] 2021-02-28 2021-02-28 Outpatient [facility] [id number] Univers 09:30:00 09:30:00 BILAL ity [facility] 2021-02-27 2021-02-27 Refjia [facility] 1.2.840.114 [id number] Univers 00:00:00 00:00:00 Bilri HEALTH 350.1.13.10 it [facility] 4.2.7.2.686 [facility] [phone] [facility] Primary & [address] Specialty Care 2021-02-14 2021-02-14 [facility] 1.2.840.114 [id number] Univers 00:00:00 00:00:00 Bilal HEALTH 350.1.13.10 it y of [place] 4.2.7.2.686 [facility] [phone] [facility] Primary & [address] Specialty Care 2021-02-07 2021-02-07 Outpatient [facility] [id number] -20 Univers 09:20:00 09:20:00 ELO [id number] ity [facility] 2021-02-07 2021-02-07 Outpatient [facility] [id number] Univers 09:20:00 09:20:00 LEO ity [facility] 2021-02-07 2021-02-07 Telephone [facility] 1.2.305.049 [id number] Univers 00:00:00 00:00:00 Bilal HEALTH 350.1.13.10 it y of [place] 4.2.7.2.686 [facility] [phone] [facility] Primary & [address] Specialty Care 2021-01-31 2021-01-31 Refill [facility] 1.2.840.114 [id number] Univers 00:00:00 00:00:00 Qiangjun [place] 350.1.13.10 [place] [phone] Hi dical nal 9 [facility] 2021-01-18 2021-01-18 [facility]ia [facility] 1.2.840.114 [id number] Univers 00:00:00 00:00:00 Qiangjun [place] 350.1.13.10 [place] [phone] Hi dical nal 9 [facility] 2021-01-17 2021-01-17 Outpatient [facility] [id number] -[id number] Univers 08:00:00 08:00:00 LEO [id number] ity [facility] 2021-01-17 2021-01-17 Outpatient Col[facility] [id number] Univers 08:00:00 08:00:00 LEO ity of [facility] 2020-12-28 2020-12-28 Telephone [facility] 1.2.534.269 [id number] Univers 00:00:00 00:00:00 Bilal HEALTH 350.1.13.10 it y of [place] [address] [place] [address] [phone] [facility] Primary & [address] Specialty Care 2020-12-27 2020-12-27 Office [facility] 1.2.840.114 [id number] Univers 15:22:11 16:26:16 Visit Bilal HEALTH 350.1.13.10 it y of [place] 4.2.7.2.[address] [place] [address] [phone] [facility] Primary & [address] Specialty Care 2020-12-27 2020-12-27 Outpatient R [facility] [id number] -20 Univers 16:00:00 16:00:00 BILAL [id number] ity of [facility] 2020-12-27 2020-12-27 Outpatient R [facility] [id number] Univers 16:00:00 16:00:00 BILAL ity [facility] 2020-12-27 2020-12-27 Telephone [facility] [id number] Univers 00:00:00 00:00:00 Bilal HEALTH 350.1.13.10 it y of [place] 4.2.7.2.[address] [place] [address] [phone] [facility] Primary & [address] Specialty Care 2020-12-19 2020-12-20 Emergency [facility] 1.2.036.844 [id number] Univers 17:54:00 00:29:00 Dong [place] 350.1.13.10 i ty of [place] 4.2.7.2.686 [facility] [id number] [facility] [address] 2020-12-20 2020-12-20 Telephone [facility] 1.2.196.221 [id number] Univers 00:00:00 00:00:00 Bilal HEALTH 350.1.13.10 it y of [place] 4.2.7.2.686 [facility] s [facility] [phone] [facility] Primary & [address] Specialty Care 2020-12-16 2020-12-16 Hospital [facility] 1.2.840.114 [id number] Univers 08:17:00 13:29:00 Encounter Bilal Health 350.1.13.10 ity of [place] 4.2.7.2.686 [facility] [phone] [address] ([facility]) 2020-12-16 2020-12-16 Surgery [facility] 1.2.840.114 [id number] Univers 09:13:00 10:48:00 Bilal SPECIALTY 350.1.13.10 ity of CARE 4.2.7.2.686 [facility] AT [phone] Hi dical [facility] [address] [facility] 2020-12-16 2020-12-16 Orders Doctor JAYLAN 1.2.840.114 [id number] Univers 00:00:00 00:00:00 Only Unassigned, JESUS MANUEL 350.1.13.10 ity of [place] [facility] 4.2.7.2.686 [facility] [phone] [facility] [address] 2020-12-15 2020-12-15 Outpatient [facility] [id number] -20 Univers 15:15:00 15:15:00 [id number] ity [facility] 2020-12-07 2020-12-07 Outpatient [facility] [id number] -[id number] Univers 10:15:00 10:15:00 LEO [id number] ity [facility] 2020-12-07 2020-12-07 Outpatient Col[facility] [id number] Univers 10:15:00 10:15:00 LEO ity of [facility] 2020-11-30 2020-11-30 Outpatient [facility] [id number] -20 Univers 07:00:00 07:00:00 [id number] ity [facility] 2020-11-30 2020-11-30 Outpatient [facility] [id number] Univers 07:00:00 07:00:00 LEO ity [facility] 2020-11-23 2020-11-24 [facility] Leo Haddad 1.2.840.114 [id number] Univers 10:43:00 14:10:00 Encounter Aguila Kelton Sánchezy 350.1.13.10 ity of Hospital 4.2.7.2.686 [place] as [id number] [facility] [address] 2020-11-24 2020-11-24 [facility]phone [facility] 1.2.908.073 [id number] Univers 00:00:00 00:00:00 Leo [place] 350.1.13.10 i [place] [phone] Hi dical nal 059 [facility] 2020-11-23 2020-11-23 [facility] Leo Haddad 1.2.840.114 [id number] Univers 10:45:00 23:59:00 Encounter Kelton Aguilay 350.1.13.10 ity of [facility] 4.2.7.2.686 [place] as [phone] [facility] [address] 2020-11-23 2020-11-23 Outpatient R [facility] [id number] -20 Univers 07:00:00 07:00:00 [id number] ity of [facility] 2020-11-23 2020-11-23 [facility] [id number] Univers 07:00:00 07:00:00 LEO ity [facility] 2020-11-23 2020-11-23 [facility] Payton Haddad 1.2.840.114 [id number] Univers 06:45:00 06:45:00 Encounter Loe [place] 350.1.13.10 ity of Hospital 4.2.7.2.686 [place] [phone] [facility] [address] 2020-11-21 2020-11-21 Telephone Payton Haddad 1.2.908.752 [id number] Univers 00:00:00 00:00:00 Leo Jesus Manuel 350.1.13.10 it y of [facility] 4.2.7.2.686 [place] [phone] [facility] [address] 2020-11-17 2020-11-17 Case Miracle [facility] 1.2.840.114 [id number] Univers 00:00:00 00:00:00 Management Tamalondra Virgilio [facility] 350.1.13.10 ity of [place] 4.2.7.2.686 [place] [facility] [phone] [facility] [address] 2020-11-16 2020-11-16 Telephone Payton Haddad 1.2.431.725 [id number] Univers 00:00:00 00:00:00 Leo Jesus Manuel 350.1.13.10 it y of Hospital 4.2.7.2.686 [place] [id number] [facility] [address] 2020-11-15 2020-11-15 [facility] [id number] -20 Univers 11:00:00 11:00:00 LEO [id number] ity [facility] 2020-11-15 2020-11-15 Outpatient R BOO [facility] [id number] Univers 11:00:00 11:00:00 LEO ity [facility] 2020-11-15 2020-11-15 Office [facility] 1.2.840.114 [id number] Univers 10:35:52 10:55:52 Visit [facility] [place] 350.1.13.10 i ty of [place].2.686 [place] [facility] [phone] [facility] [address] Building 2020-11-14 2020-11-14 Emergency [facility] 1.2.840.114 [id number] Univers 15:57:00 22:25:00 Maynor Demarco 350.1.13.10 ity of [place] 4.2.7.2.686 [place] [phone] [facility] [address] 2020-11-13 2020-11-13 Telephone Aamir [facility] 1.2.572.389 [id number] Univers 00:00:00 00:00:00 Bilal HEALTH 350.1.13.10 it y of [place] 4.2.7.2.686 [place] [facility] [phone] [facility] Primary & [address] Specialty Care 2020-11-11 2020-11-11 Telephone [facility] 1.2.130.611 [id number] Univers 00:00:00 00:00:00 Bilal Health 350.1.13.10 it y of Cancer 4.2.7.2.686 [facility] - [phone] Med ical [facility] [address] 2020-11-10 2020-11-10 Telephone [facility] 1.2.371.247 [id number] Univers 00:00:00 00:00:00 Bilal HEALTH 350.1.13.10 it y of [place] 4.2.7.2.686 [facility] [phone] [facility] Primary & [address] Specialty Care 2020-11-04 2020-11-04 Telephone [facility] 1.2.771.305 [id number] Univers 00:00:00 00:00:00 Kacie Demarco 350.1.13.10 ity of [place] 4.2.7.2.686 [facility] s [facility] [phone] Hi dical [facility]9 Branch [facility] 2020-11-03 2020-11-03 Office [facility] 1.2.840.114 [id number] Univers 13:43:21 15:59:05 Visit [facility] 350.1.13.10 it y of [place] 4.2.7.2.686 [facility] [id number] [facility] Primary & [address] Specialty Care 2020-11-03 2020-11-03 Outpatient Col[facility] [id number] -20 Univers 14:45:00 14:45:00 BILAL [id number] ity of [facility] 2020-11-03 2020-11-03 Outpatient [facility] [id number] Univers 14:45:00 14:45:00 BILAL ity [facility] 2020-11-01 2020-11-01 [facility]phone [facility] 1.2.840.114 [id number] Univers 00:00:00 00:00:00 Hiren Demarco 350.1.13.10 i [place] [phone] Hi dical nal 204 [facility] 2020-10-27 2020-10-27 Office Yee [facility] 1.2.840.114 [id number] Univers 10:45:40 11:48:57 Visit Hiren Demarco 350.1.13.10 i ty [place].2.[place].2.[place] [phone] Hi dical nal 204 [facility] 2020-10-27 2020-10-27 Outpatient R YEE [facility] [id number] Univers 11:30:00 11:30:00 [facility] [id number] ity [facility] 2020-10-27 2020-10-27 Outpatient R YEE [facility] [id number] Univers 11:30:00 11:30:00 [facility] 2020-10-24 2020-10-25 Emergency Dong Lei [facility] 1.2.840. 114 [id number] Univers 12:22:00 14:34:00 Nati Huynh 350.1.13.10 ity of [place] 4.2.7.2.686 [place] [phone] [facility] [address] [place] [address] 2020-09-28 2020-09-28 [facility] 1.2.823.655 [id number] Univers 00:00:00 00:00:00 Kacie Demarco 350.1.13.10 [place] [phone] Hi dical nal 059 [facility] 2020-09-23 2020-09-23 Outpatient R COLTON [facility] [id number] -[id number] Univers 14:00:00 14:00:00 KACIE [id number] ity o [facility] 2020-09-23 2020-09-23 [facility] [id number] Univers 00:00:00 00:00:00 KACIE jangy o f [facility] 2020-08-31 2020-08-31 Office [facility] 1.2.840.114 [id number] Univers 15:14:49 15:46:54 Visit Kacie Demarco 350.1.13.10 [place].2.[place] [phone] Hi dical nal 9 [facility] 2020-08-31 2020-08-31 Outpatient R COLTON, [facility] [id number] -20 Univers 15:20:00 15:20:00 KACIE [id number] ity o [facility] 2020-08-31 2020-08-31 Outpatient R COLTON, [facility] [id number] Univers 15:20:00 15:20:00 KACIE jangy o [facility] 2020-08-17 2020-08-17 Outpatient R COLTON, [facility] [id number] -[id number] Univers 15:00:00 15:00:00 KACIE [id number] ity o [facility] 2020-08-17 2020-08-17 Outpatient R COLTON, [facility] [id number] Univers 15:00:00 15:00:00 [facility]DAFELICITA [facility] 2020-07-15 2020-07-15 Office [place], [facility] 1.2.840.114 [id number] Univers 15:14:40 16:05:14 Visit Kacie Demarco 350.1.13.10 [place].2.[place] [phone] Hi dical nal [address] [place] [address] 2020-07-15 2020-07-15 Outpatient R COLTON, [facility] [id number] Univers 15:40:00 15:40:00 KACIE jangy o [facility] 2020-07-15 2020-07-15 Outpatient R COLTON, [facility] [id number] -[id number] Univers 10:20:00 10:20:00 KACIE [id number] ity o [facility] 2020-07-15 2020-07-15 Outpatient R COLTON, [facility] [id number] Univers 10:20:00 10:20:00 KACIE jangy o [facility] 2020-06-14 2020-06-14 Outpatient R COLTON, [facility] [id number] -20 Univers 08:20:00 08:20:00 KACIE [id number] ity o f [facility] 2020-06-14 2020-06-14 Outpatient R COLTON [facility] [id number] Univers 08:20:00 08:20:00 REESEFELICITA ity o f [facility] 2020-01-14 2020-01-14 Orders Doctor JAYLAN 1.2.840.114 [id number] Univers 00:00:00 00:00:00 Only Unassigned, JESUS MANUEL 350.1.13.10 ity of [place] [facility] 4.2.7.2.686 [place] [phone] [facility] [address] 2020-01-04 2020-01-04 Transition Dinora Arriaga 1.2.840.114 [id number] Univers 00:00:00 00:00:00 of Care Mary To 350.1.13.10 i ty of [place] 4.2.7.2.686 [place] [phone] [facility] [address] 2019-12-28 2020-01-01 [facility] [place] Sotomayor [facility] 1.2.840.1 14 [id number] Univers 18:49:00 18:40:00 Encounter [facility] 350.1.13.10 ity of [place]2.[place].2.686 [place] [phone] [facility] 110 [address] (CLC) 2019-12-28 2019-12-28 Telephone Colton [facility] 1.2.032.406 [id number] Univers 00:00:00 00:00:00 Kacie Demarco 350.1.13.10 [place].2.[place] [phone] Hi dical nal 059 [address] [facility] 2019-11-12 2019-11-12 Departed SUNDAY HUA [id number] CHRISTU 11:20:00 19:16:[address] [facility] 2019-11-12 2019-11-12 Departed SUNDAY HUA [id number] CHRISTU 11:20:00 19:16:[address] [facility] 2019-10-20 2019-10-20 Transition Dinora De La O 1.2.840.114 [id number] Univers 00:00:00 00:00:00 of Care Allie To 350.1.13.10 ity of [place] 4.2.7.2.686 [place] [phone] [facility] [address] 2019-10-14 2019-10-17 Inpatient [facility] [id number] Univers 13:37:00 13:20:00 NATI ity of [facility] 2019-10-14 2019-10-17 [facility] 1.2.840.114 [id number] Univers 13:37:00 13:20:00 Encounter Nati Demarco 350.1.13.10 ity of [place] 4[place]2.[place].2.686 [place] [phone] [facility] 081 [address] 2019-10-14 2019-10-14 [facility] 1.2.840.114 [id number] Univers 11:45:44 13:08:45 Visit Kacie Demarco 350.1.13.10 ity [facility] 4.2.7.2.686 [place] [facility] [phone] Hi dical nal 059 [facility] 2019-10-14 2019-10-14 Outpatient R COLTON [facility] [id number] -20 Univers 11:40:00 11:40:00 KACIE ity o f [facility] 2019-10-14 2019-10-14 Orders Doctor TIAN 1.2.840.114 [id number] Univers 00:00:00 00:00:00 Only Unassigned, JESUS MANUEL 350.1.13.10 ity of [place] [facility] 4.2.7.2.686 [place] [phone] [facility] [address] 2019-09-23 2019-09-23 Outpatient R COLTON [facility] [id number] -20 Univers 11:20:00 11:20:00 KACIE ity o f [facility] 2019-09-22 2019-09-22 Transition Dinora De La O 1.2.840.114 [id number] Univers 00:00:00 00:00:00 of Care Allie To 350.1.13.10 ity of [place] 4.2.7.2.686 [place] [phone] [facility] [address] 2019-09-16 2019-09-19 Inpatient U [facility] [id number] Univers 16:02:00 12:08:00 NATI ity [facility] 2019-09-16 2019-09-19 [facility] Nati Huynh [facility] 1.2.840.1 14 [id number] Univers 16:02:00 12:08:00 Encounter Kacie Segura 350.1.13.10 ity of [place] 4.2.7.2.686 [facility] [phone] [facility] [address] 2019-09-16 2019-09-16 Office Colton [facility] 1.2.840.114 [id number] Univers 14:39:35 14:59:35 Visit Kacie Demarco 350.1.13.10 [place].2.[place] [phone] Hi dicri nal [address] [place] [address] 2019-08-27 2019-08-27 [facility] 1.2.571.295 [id number] Univers 10:20:33 13:57:00 Dong Demarco 350.1.13.10 i ty of [place] 4.2.7.2.686 [facility] [phone] [place] 036824 [place] 2019-08-27 2019-08-27 Emergency [facility] [id number] Univers 10:20:33 10:20:33 DONG issa [facility] 2019-08-24 2019-08-24 Telephone Renato [facility] 1.2.140.586 [id number] Univers 00:00:00 00:00:00 Hamzah Demarco 350.1.13.10 [place].2.[place] [phone] Hi dical nal 9 [facility] 2019-08-20 2019-08-22 Emergency Dong Lei [facility] 1.2.840. 114 [id number] Univers 07:53:06 11:29:00 Nati Huynh 350.1.13.10 [facility] 4.2.7.2.686 [facility] [phone] [place] [id number] Branch 2019-08-20 2019-08-20 Emergency X QUIQUE [facility] ERT [id number] Univers 07:53:06 07:53:06 DONG [facility] Results Test Description Test Time Test Comments Results Result Comments Source MAGNESIUM 2021-03-02 18:53:51 Test Item Value Reference Range Interpretation Comme nts MAGNESIUM (test code = 7307391322) 1.7 mg/dL 1.7-2.4 Lab Interpretation (test code = 59563-8) Normal [facility] (94686)2021-03-02 18:53:31 Test Item Value Reference Range Interpretation Comments NA (test code = 139 mmol/L 135-145 8844699493) K (test code = 4.6 mmol/L 3.5-5.0 4279348322) CL (test code = 108 mmol/L 98-108 0597943073) CO2 TOTAL (test code 28 mmol/L 23-31 = 3096066258) AGAP (test code = 2-16 6817237491) BUN (test code = 21 mg/dL 7-23 6665591457) GLUCOSE (test code = 94 mg/dL 70-110 8731263009) CREATININE (test code 1.09 mg/dL 0.60-1.25 = 3570464130) TOTAL BILI (test code 0.5 mg/dL 0.1-1.1 = 9176837192) CALCIUM (test code = 9.5 mg/dL 8.6-10.6 9204164476) T PROTEIN (test code 6.7 g/dL 6.3-8.2 = 1061209531) ALBUMIN (test code = 3.9 g/dL 3.5-5.0 6999147099) ALK PHOS (test code = 103 U/L 34-122 0890579165) ALTv (test code = 14 U/L 5-50 1742-6) AST(SGOT) (test code 21 U/L 13-40 = 0723938829) eGFR (test code = mL/min/1.73m2 4269008656) NELI (test code = NELI) Association of Glomerular Filtration Rate (GFR) and Staging of Kidney Disease* + + +- +| GFR (mL/min/1.73 m2) ?| With Kidney Damage ?| ?Without Kidney Damage+ ------+ ----+ ------+| ?>90 ?| ?Stage one ?| ? Normal ?+ -+ + -+| ?60-89 ?| ?Stage two ?| ? Decreased GFR ? + + +- +| ?30-59 ?| ?Stage three ?| ? Stage three ? + + +- +| ?15-29 ?| ?Stage four ? | ? Stage four ?+ -+ + -+| ?<15 (or dialysis) ? ?| ?Stage five ? | ? Stage five ?+ -+ + -+ *Each stage assumes the associated GFR level has been in effect for at least three months. ?Stages 1 to 5, with or without kidney disease, indicate chronic kidney disease. Notes: Determination of stages one and two (with eGFR >59mL/min/1.73 m2) requires estimation of kidney damage for at least three months as defined by structural or functional abnormalities of the kidney, manifested by either:Pathological abnormalities or Markers of kidney damage (including abnormalities in the composition of the blood or urine or abnormalities in imaging tests). [facility] WITH [id number] 18:44:11 Test Item Value Reference Range Interpretation Comments WBC (test code = See_Comment [Automated 1410-2) message] The sy stem which generated this result transmitted reference range : 4.20 - 10.70 10*3/?L. The reference range was not used to interpret this result as normal/abnormal . RBC (test code = See_Comment L [Automated 151-8) message] The sy stem which generated this result transmitted reference range : 4.26 - 5.52 10*6/?L. The reference range was not used to interpret this result as normal/abnormal . HGB (test code = 13.5 g/dL 12.2-16.4 718-7) HCT (test code = 40.2 % 38.4-49.3 4544-3) MCV (test code = 95.3 fL 81.7-95.6 787-2) MCH (test code = 32.0 pg 26.1-32.7 785-6) MCHC (test code = 33.6 g/dL 31.2-35.0 786-4) RDW-SD (test code = 47.0 fL 38.5-51.6 95194-2) RDW-CV (test code = 13.3 % 12.1-15.4 788-0) PLT (test code = See_Comment [Automated 777-3) message] The sy stem which generated this result transmitted reference range : 150 - 328 10*3/ ?L. The reference r minerva was not used to interpret this result as normal/abnormal . MPV (test code = 11.2 fL 9.8-13.0 07103-9) NRBC/100 WBC (test See_Comment [Automat ed code = [id number]) message] The system which generated this result transmitted reference range : 0.0 - 10.0 /100 WBCs. The refer ence range was not u sed to interpret th is result as normal/abnormal . NRBC x10^3 (test code <0.01 See_Comment [Auto mated = [id number]) message] The s ystem which generated this result transmitted reference range : 10*3/?L. The reference range was not used to interpret this result as normal/abnormal . GRAN MAT (NEUT) % 76.8 % (test code = 770-8) IMM GRAN % (test code 0.40 % = 3541758325) LYMPH % (test code = 15.1 % 736-9) MONO % (test code = 5.0 % 5905-5) EOS % (test code = 1.8 % 713-8) BASO % (test code = 0.9 % 706-2) GRAN MAT x10^3(ANC) 6.89 10*3/uL 1.99-6.95 (test code = 3475150120) IMM GRAN x10^3 (test 0.04 10*3/uL 0.00-0.06 code = 4687573926) LYMPH x10^3 (test code 1.36 10*3/uL 1.09-3.23 = 731-0) MONO x10^3 (test code 0.45 10*3/uL 0.36-1.02 = 742-7) EOS x10^3 (test code = 0.16 10*3/uL 0.06-0.53 711-2) BASO x10^3 (test code 0.08 10*3/uL 0.01-0.09 = 704-7) Lab Interpretation Abnormal (test code = 56895-4) [facility]11:41 Test Item Value Reference Range Interpretation Comments APPEARANCE (test code = Cloudy Clear A 8460328974) COLOR (test code = Red Yellow A 7111622276) PH (test code = 4.8-8.0 6673181525) SP GRAVITY (test code = 1.003-1.030 0039521501) GLU U QUAL (test code = Negative Negative 0044830012) BLOOD (test code = Large Negative A 4864202242) KETONES (test code = Negative Negative 1354740993) PROTEIN (test code = >300 mg/dL Negative A 2887-8) UROBILIN (test code = 0.2 mg/dL See_Comment [Auto mated message] 2202996441) The system [employer] generated this result transmit sb reference range : 0-1.0 mg/dL. Th e reference range was not used to interpret this result as normal/abnormal . BILIRUBIN (test code = Small Negative A 8465683223) NITRITE (test code = Negative Negative 4587629891) LEUK ALLEN (test code = Small Negative A 3973378909) RBC/HPF (test code = >182 See_Comment H [Autom ated message] 7919050524) The system [employer] generated this result transmit sb reference range : 0 - 3 HPF. The refe rence range was not u sed to interpret th is result as normal/abnormal . WBC/HPF (test code = See_Comment H [Autom ated message] 4785050563) The system [employer] generated this result transmit sb reference range : 0 - 5 HPF. The refe rence range was not u sed to interpret th is result as normal/abnormal . BACTERIA (test code = Few Negative A 8935794415) SQ EPITH (test code = See_Comment H [Auto mated message] 1803802573) The system [employer] generated this result transmit sb reference range : <=1 HPF. The refere nce range was not u sed to interpret th is result as normal/abnormal . Ictotest (test code = Positive 3616904344) Lab Interpretation Abnormal (test code = 51240-7) [facility]. METABOLIC PANEL (57528)2020-12-20 02:46:36 Test Item Value Reference Range Interpretation Comments NA (test code = 139 mmol/L 135-145 6625436504) K (test code = 4.7 mmol/L 3.5-5.0 0073056620) CL (test code = 103 mmol/L 98-108 5964456000) CO2 TOTAL (test code = 26 mmol/L 23-31 4705153789) AGAP (test code = 2-16 0468716205) BUN (test code = 20 mg/dL 7-23 6989457569) GLUCOSE (test code = 99 mg/dL 70-110 2773347591) CREATININE (test code = 1.27 mg/dL 0.60-1.25 H 2695705643) TOTAL BILI (test code = 0.7 mg/dL 0.1-1.1 5860122330) CALCIUM (test code = 10.0 mg/dL 8.6-10.6 0518699565) T PROTEIN (test code = 8.8 g/dL 6.3-8.2 H 2105211084) ALBUMIN (test code = 4.7 g/dL 3.5-5.0 3997336857) ALK PHOS (test code = 149 U/L 34-122 H 9403369285) ALTv (test code = 14 U/L 5-50 1742-6) AST(SGOT) (test code = 25 U/L 13-40 8374325399) eGFR (test code = mL/min/1.73m2 3748762931) NELI (test code = NELI) Association of Glomerular Filtration Rate (GFR) and Staging of Kidney Disease* + --+ --+ ------+| GFR (mL/min/1.73 m2) ?| With Kidney Damage ?| ?Without Kidney Damage+ --------+ --------+ +| ?>90 ?| ?Stage one ?| ? Normal ?+ ---+ ---+ -------+| ?60-89 ?| ?Stage two ?| ? Decreased GFR ? + --+ --+ ------+| ?30-59 ?| ?Stage three ?| ? Stage three ? + --+ --+ ------+| ?15-29 ?| ?Stage four ? | ? Stage four ?+ ---+ ---+ -------+| ?<15 (or dialysis) ? ?| ?Stage five ? | ? Stage five ?+ ---+ ---+ -------+ *Each stage assumes the associated GFR level has been in effect for at least three months. ?Stages 1 to 5, with or without kidney disease, indicate chronic kidney disease. Notes: Determination of stages one and two (with eGFR >59mL/min/1.73 m2) requires estimation of kidney damage for at least three months as defined by structural or functional abnormalities of the kidney, manifested by either:Pathological abnormalities or Markers of kidney damage (including abnormalities in the composition of the blood or urine or abnormalities in imaging tests). Lab Interpretation Abnormal (test code = 70174-0) [facility] WITH [id number] 02:14:33 Test Item Value Reference Range Interpretation Comments WBC (test code = See_Comment [Automated 8456-2) message] The sy stem which generated this result transmitted reference range : 4.20 - 10.70 10*3/?L. The reference range was not used to interpret this result as normal/abnormal . RBC (test code = See_Comment [Automated 297-8) message] The sy stem which generated this result transmitted reference range : 4.26 - 5.52 10*6/?L. The reference range was not used to interpret this result as normal/abnormal . HGB (test code = 14.1 g/dL 12.2-16.4 718-7) HCT (test code = 43.0 % 38.4-49.3 4544-3) MCV (test code = 96.4 fL 81.7-95.6 H 787-2) MCH (test code = 31.6 pg 26.1-32.7 785-6) MCHC (test code = 32.8 g/dL 31.2-35.0 786-4) RDW-SD (test code = 47.4 fL 38.5-51.6 09132-5) RDW-CV (test code = 13.3 % 12.1-15.4 788-0) PLT (test code = See_Comment [Automated 777-3) message] The sy stem which generated this result transmitted reference range : 150 - 328 10*3/ ?L. The reference r minerva was not used to interpret this result as normal/abnormal . MPV (test code = 11.8 fL 9.8-13.0 80869-0) NRBC/100 WBC (test See_Comment [Automat ed code = 0787967711) message] The system which generated this result transmitted reference range : 0.0 - 10.0 /100 WBCs. The refer ence range was not u sed to interpret th is result as normal/abnormal . NRBC x10^3 (test code <0.01 See_Comment [Auto mated = 7407627885) message] The s ystem which generated this result transmitted reference range : 10*3/?L. The reference range was not used to interpret this result as normal/abnormal . GRAN MAT (NEUT) % 75.2 % (test code = 770-8) IMM GRAN % (test code 0.50 % = 0922271214) LYMPH % (test code = 15.5 % 736-9) MONO % (test code = 6.1 % 5905-5) EOS % (test code = 2.1 % 713-8) BASO % (test code = 0.6 % 706-2) GRAN MAT x10^3(ANC) 7.41 10*3/uL 1.99-6.95 H (test code = 0949641259) IMM GRAN x10^3 (test 0.05 10*3/uL 0.00-0.06 code = 4376040570) LYMPH x10^3 (test code 1.53 10*3/uL 1.09-3.23 = 731-0) MONO x10^3 (test code 0.60 10*3/uL 0.36-1.02 = 742-7) EOS x10^3 (test code = 0.21 10*3/uL 0.06-0.53 711-2) BASO x10^3 (test code 0.06 10*3/uL 0.01-0.09 = 704-7) Lab Interpretation Abnormal (test code = 81286-2) [facility] [id number] 18:03:22COVID DMT InterpretationInterpretation/Recommendations:Molecular NAAT Tests for Active Infection with the SARS-CoV-2 Virus:The patient has currently tested negative for the SARS-CoV-2 virus that causesCOVID-19 illness. This most likely indicates that the patient does not have an active infection withthe SARS-CoV-2 virus. However, infection is not completely ruled out as the false negative rate for molecular NAAT testing using a nasopharyngeal sample can be up to 30%, mostly dependent on the timingof sample collection in relation to illness onset and any deficiencies in sampling techniques. If the patient has symptoms concerning for COVID-19 illness, a repeat NAAT test (PCR, Rapid ID Now, etc.) should be performed, at which time the SARS-CoV-2 virus - if present - may have reached a detectable viral load (usually peaking by the end of the first week of symptoms). Tests for IgM and/or IgG Antibodies to the SARS-CoV-2 Virus:Testing for IgM and IgG antibodies approximately 3 weeks after illness o nset will likely indicate if the patient has produced antibodies to the SARS-CoV-2 virus. However, some patients may take longer to develop detectable antibodies, while others infected with SARS-CoV-2 may never develop antibodies, particularly those who have had mild or asymptomatic illness. Of note, if the patient has been vaccinated earlier than 1-2 weeks prior to antibody testing, any positive SARS-CoV-2 IgG antibody result is likely due to vaccination. The specific duration and strength of immunity from SARS-CoV-2 IgG antibodies is highly variable between individuals and is dependent on a variety of factors, including infection vs. vaccination response, initial infection severity, the strengthof the patient's own immune system, and the variants to which the patient has been exposed. ? ------- Interpretation Result Comments:These interpretation comments are based upon all COVID-19 testing the patient has had at [facility], includingmolecular NAAT testing (more commonly known as PCR testing and Rapid ID Now testing) and antibody testing. It does not take into account any testing that a patient has had outside of the [facility] medical record. [facility] LABORATORY SERVICESCOVID MzmnksgZGKF-FwC-5 Rapid ID NOW (no units) ? ? Date ? Value ? 12/16/2020 ? Not Detected ? ? ? 11/23/2020 ? Not Detected ? ? ? 10/24/2020 ? Not Detected ? ? ? 12/28/2019 ? Not Detected ? ? ? 10/14/2019 ? Not Detected ? ? ? 08/20/2019 ? Not Detected ? [facility] SERVICESUn[facility] [place]FL TIME OR (NON-REPORTABLE)2020-12-16 17:22:48These images do not require a Radiology diagnostic report.[facility] TIME OR (NON-REPORTABLE)2020-12-16 17:22:48These images do not require a Radiology diagnostic report.[facility] (ID NOW RAPID TESTING)2020-12-16 13:58:47 Test Item Value Reference Range Interpretation Comments SARS-CoV-2 Rapid ID NOW Not Detected Not Detected (test code = 66602-7) NELI (test code = NELI) ID NOW COVID-19 Assay is an isothermal nucleic acid amplification test intended for the qualitative detection of nucleic acid from SARS-CoV-2 viral RNA in nasopharyngeal ([employer]) specimens. It is used under Emergency Use Authorization (EUA) by FDA. The limit of detection (LOD) of the assay is 125 Genome Equivalents/mL. A positive result is indicative of the presence of SARS-CoV-2 RNA. ?Clinical correlation with patient history and other diagnostic information is necessary to determine patient infection status. A negative (Not Detected) result does not preclude SARS-CoV-2 infection. In patients with clinical symptoms and other tests that are consistent with SARS-CoV-2 infection, negative results should be treated as presumptive negative and a new specimen should be tested with alternative PCR molecular test. Invalid: Please collect a new specimen for repeat patient testing if clinically indicated. Lab Interpretation Normal (test code = 80596-9) [facility] (ID NOW RAPID TESTING)2020-12-16 13:58:47 Test Item Value Reference Range Interpretation Comments SARS-CoV-2 Rapid ID NOW Not Detected Not Detected (test code = 93616-0) NELI (test code = NELI) ID NOW COVID-19 Assay is an isothermal nucleic acid amplification test intended for the qualitative detection of nucleic acid from SARS-CoV-2 viral RNA in nasopharyngeal ([employer]) specimens. It is used under Emergency Use Authorization (EUA) by FDA. The limit of detection (LOD) of the assay is 125 Genome Equivalents/mL. A positive result is indicative of the presence of SARS-CoV-2 RNA. ?Clinical correlation with patient history and other diagnostic information is necessary to determine patient infection status. A negative (Not Detected) result does not preclude SARS-CoV-2 infection. In patients with clinical symptoms and other tests that are consistent with SARS-CoV-2 infection, negative results should be treated as presumptive negative and a new specimen should be tested with alternative PCR molecular test. Invalid: Please collect a new specimen for repeat patient testing if clinically indicated. Lab Interpretation Normal (test code = 33422-5) [facility] Metabolic Panel (NA, K, CL, CO2, GLUCOSE, BUN, CREATININE, CA)2020-11-24 09:11:59 Test Item Value Reference Range Interpretation Comments NA (test code = 133 mmol/L 135-145 L 8124287638) K (test code = 3.8 mmol/L 3.5-5.0 5632521680) CL (test code = 103 mmol/L 98-108 8304005553) CO2 TOTAL (test code = 25 mmol/L 23-31 3885911036) AGAP (test code = 2-16 4556783858) BUN (test code = 22 mg/dL 7-23 3762025650) GLUCOSE (test code = 101 mg/dL 70-110 2942090012) CREATININE (test code = 0.94 mg/dL 0.60-1.25 5256639838) CALCIUM (test code = 8.5 mg/dL 8.6-10.6 L 9829738350) eGFR (test code = mL/min/1.73m2 4509220363) NELI (test code = NELI) Association of Glomerular Filtration Rate (GFR) and Staging of Kidney Disease* + --+ --+ ------+| GFR (mL/min/1.73 m2) ?| With Kidney Damage ?| ?Without Kidney Damage+ --------+ --------+ +| ?>90 ?| ?Stage one ?| ? Normal ?+ ---+ ---+ -------+| ?60-89 ?| ?Stage two ?| ? Decreased GFR ? + --+ --+ ------+| ?30-59 ?| ?Stage three ?| ? Stage three ? + --+ --+ ------+| ?15-29 ?| ?Stage four ? | ? Stage four ?+ ---+ ---+ -------+| ?<15 (or dialysis) ? ?| ?Stage five ? | ? Stage five ?+ ---+ ---+ -------+ *Each stage assumes the associated GFR level has been in effect for at least three months. ?Stages 1 to 5, with or without kidney disease, indicate chronic kidney disease. Notes: Determination of stages one and two (with eGFR >59mL/min/1.73 m2) requires estimation of kidney damage for at least three months as defined by structural or functional abnormalities of the kidney, manifested by either:Pathological abnormalities or Markers of kidney damage (including abnormalities in the composition of the blood or urine or abnormalities in imaging tests). Lab Interpretation Abnormal (test code = 45625-8) [facility] TylerMagnesium [id number] 09:11:59 Test Item Value Reference Range Interpretation Comments MAGNESIUM (test code = 5449479074) 1.7 mg/dL 1.7-2.4 Lab Interpretation (test code = Normal 80311-0) [facility] TylerPROFILE / [id number] 08:48:17 Test Item Value Reference Range Interpretation Comments WBC (test code = 6690-2) See_Comment H [A utomated message] The system [employer] generated this result transmit sb reference range : 4.20 - 10.70 10*3/?L. The reference range was not used to interpret this result as normal/abnormal . RBC (test code = 789-8) See_Comment L [Au tomated message] The system [employer] generated this result transmit sb reference range : 4.26 - 5.52 10* 6/?L. The reference r minerva was not used to interpret this result as normal/abnormal . HGB (test code = 718-7) 13.3 g/dL 12.2-16.4 HCT (test code = 4544-3) 38.6 % 38.4-49.3 MCH (test code = 785-6) 32.7 pg 26.1-32.7 MCV (test code = 787-2) 94.8 fL 81.7-95.6 MCHC (test code = 786-4) 34.5 g/dL 31.2-35.0 PLT (test code = 777-3) See_Comment [Au tomated message] The system [employer] generated this result transmit sb reference range : 150 - 328 10*3/?L. The reference range was not used to interpret this result as normal/abnormal . MPV (test code = 11.3 fL 9.8-13.0 74711-4) RDW-CV (test code = 13.8 % 12.1-15.4 788-0) RDW-SD (test code = 48.3 fL 38.5-51.6 37834-4) NRBC x10^3 (test code = <0.01 See_Comment [Au tomated message] 6211383563) The system [employer] generated this result transmit sb reference range : 10*3/?L. The reference range was not used to interpret this result as normal/abnormal . NRBC/100 WBC (test code See_Comment [Au tomated message] = 6621754623) The system [facility] generated this result transmit sb reference range : 0.0 - 10.0 /100 WBC s. The reference r minerva was not used to interpret this result as normal/abnormal . IPF % (test code = 9845771623) Lab Interpretation (test Abnormal code = 04494-4) [facility] TylerXR CHEST 1 [id number] 04:03:56Impression: No radiographic evidence for acute cardiopulmonary disease. Mild cardiomegaly. Status post interval single-lead AICD placement. RL: 460 AFC: [id number] Ordering physician: LEO HADDAD Indication: Status post AICD placement Comparison: Chest radiograph dated 10/24/2020 Findings: Single AP view of the chest. The cardiopericardial silhouette ismildly enlarged. There is a single lead AICD, projecting over the rightventricle.The lungs are clear bilaterally. No definite pneumothorax isappreciated. The visualized bony thorax is intact. [facility], Radiant Results Inft User - 11/23/2020 11:05 PM CDT Ordering physician: LEO HADDADIndication: Status post AICD placementComparison: Chest radiograph dated 10/24/2020Findings: Single AP view of the chest. The cardiopericardial silhouette ismildly enlarged. There is a single lead AICD, projecting over the rightventricle. The lungs are clear bilaterally. No definite pneumothorax isappreciated. The visualized bony thorax is intact.IMPRESSIONImpression:No radiographic evidence for acute cardiopulmonary disease.Mild cardiomegaly.Status post interval single-lead AICD placement.RL: 460AFC: [id number] signed by Dolores Chester MD, PhD at 11/23/2020 11:03 PM[facility] TylerLAB ONLY COVID [id number] 01:13:06COVID DMT InterpretationInterpretation/Recommendations:Molecular NAAT Tests for Active Infection with the SARS-CoV-2 Virus:The patient has currently tested negative for the SARS-CoV-2 virus that causesCOVID-19 illness. This most likely indicates that the patient does not have an active infection withthe SARS-CoV-2 virus. However, infection is not completely ruled out as the false negative rate for m olecular NAAT testing using a nasopharyngeal sample can be up to 30%, mostly dependent on the timingof sample collection in relation to illness onset and any deficiencies in sampling techniques. If the patient has symptoms concerning for COVID-19 illness, a repeat NAAT test (PCR, Rapid ID Now, etc.) should be performed, at which time the SARS-CoV-2 virus - if present - may have reached a detectable viral load (usually peaking by the end of the first week of symptoms). Tests for IgM and/or IgG Antibodies to the SARS-CoV-2 Virus:Testing for IgM and IgG antibodies approximately 3 weeks after illness onset will likely indicate if the patient has produced antibodies to the SARS-CoV-2 virus. However, some patients may take longer to develop detectable antibodies, while others infected with SARS-CoV-2 may never develop antibodies, particularly those who have had mild or asymptomatic illness. Of note, if the patient has been vaccinated earlier than 1-2 weeks prior to antibody testing, any positive SARS -CoV-2 IgG antibody result is likely due to vaccination. The specific duration and strength of immunity from SARS-CoV-2 IgG antibodies is highly variable between individuals and is dependent on a variety of factors, including infection vs. vaccination response, initial infection severity, the strengthof the patient's own immune system, and the variants to which the patient has been exposed. ? ------- Interpretation Result Comments:These interpretation comments are based upon all COVID-19 testing the patient has had at [facility], includingmolecular NAAT testing (more commonly known as PCR testing and Rapid ID Now testing) and antibody testing. It does not take into account any testing that a patient has had outside of the [facility] medical record. [facility] LABORATORY SERVICESCOVID [id number]-JsP-9 Rapid ID NOW (no units) ? ? Date ? Value ? 11/23/2020 ? Not Detected ? ? ? 10/24/2020 ? Not Detected ? ? ? 12/28/2019 ? Not Detected ? ? ? 10/14/2019 ? Not Detected ? ? ? 08/20/2019 ? Not Detected ? [facility] SERVICESUn[facility]woodBAT[facility] (NA, K, CL, CO2, GLUCOSE, BUN, CREATININE, CA)2020-11-23 12:32:04 Test Item Value Reference Range Interpretation Comments NA (test code = 140 mmol/L 135-145 5989783844) K (test code = 3.7 mmol/L 3.5-5.0 2126604146) CL (test code = 104 mmol/L 98-108 9543413131) CO2 TOTAL (test code 27 mmol/L 23-31 = 7685137986) AGAP (test code = 2-16 8207816995) BUN (test code = 20 mg/dL 7-23 7496806143) GLUCOSE (test code = 91 mg/dL 70-110 7667118660) CREATININE (test code 0.92 mg/dL 0.60-1.25 = 4865642578) CALCIUM (test code = 9.4 mg/dL 8.6-10.6 7893770049) eGFR (test code = mL/min/1.73m2 3267170708) NELI (test code = NELI) Association of Glomerular Filtration Rate (GFR) and Staging of Kidney Disease* + + +- +| GFR (mL/min/1.73 m2) ?| With Kidney Damage ?| ?Without Kidney Damage+ ------+ ----+ ------+| ?>90 ?| ?Stage one ?| ? Normal ?+ -+ + -+| ?60-89 ?| ?Stage two ?| ? Decreased GFR ? + + +- +| ?30-59 ?| ?Stage three ?| ? Stage three ? + + +- +| ?15-29 ?| ?Stage four ? | ? Stage four ?+ -+ + -+| ?<15 (or dialysis) ? ?| ?Stage five ? | ? Stage five ?+ -+ + -+ *Each stage assumes the associated GFR level has been in effect for at least three months. ?Stages 1 to 5, with or without kidney disease, indicate chronic kidney disease. Notes: Determination of stages one and two (with eGFR >59mL/min/1.73 m2) requires estimation of kidney damage for at least three months as defined by structural or functional abnormalities of the kidney, manifested by either:Pathological abnormalities or Markers of kidney damage (including abnormalities in the composition of the blood or urine or abnormalities in imaging tests). [facility] TylerPROTHROMBIN TIME / [id number] 12:22:04 Test Item Value Reference Range Interpretation Comments PROTIME PATIENT (test See_Comment [Auto mated message] code = 5964-2) The system wh ich generated this result transmitted ref erence range: 10.1 - 1 2.6 Seconds. The re ference range was not u sed to interpret this result as normal/abnor mal. INR (test code = 6301-6) Nor mal INR <1.1; Warfarin Therap eutic range 2.0 to 3. 0 or 2.5 to 3.5, dep ending upon the indica tions. Lab Interpretation (test Normal code = 93041-9) [facility] (ID NOW RAPID TESTING)2020-11-23 12:21:03 Test Item Value Reference Range Interpretation Comments SARS-CoV-2 Rapid ID NOW Not Detected Not Detected (test code = 97061-1) NELI (test code = NELI) ID NOW COVID-19 Assay is an isothermal nucleic acid amplification test intended for the qualitative detection of nucleic acid from SARS-CoV-2 viral RNA in nasopharyngeal ([employer]) specimens. It is used under Emergency Use Authorization (EUA) by FDA. The limit of detection (LOD) of the assay is 125 Genome Equivalents/mL. A positive result is indicative of the presence of SARS-CoV-2 RNA. ?Clinical correlation with patient history and other diagnostic information is necessary to determine patient infection status. A negative (Not Detected) result does not preclude SARS-CoV-2 infection. In patients with clinical symptoms and other tests that are consistent with SARS-CoV-2 infection, negative results should be treated as presumptive negative and a new specimen should be tested with alternative PCR molecular test. Invalid: Please collect a new specimen for repeat patient testing if clinically indicated. Lab Interpretation Normal (test code = 04070-7) [facility] TylerCB WITH [id number] 12:17:04 Test Item Value Reference Range Interpretation Comments WBC (test code = See_Comment [Automated 4390-2) message] The sy stem which generated this result transmitted reference range : 4.20 - 10.70 10*3/?L. The reference range was not used to interpret this result as normal/abnormal . RBC (test code = See_Comment [Automated 789-8) message] The sy stem which generated this result transmitted reference range : 4.26 - 5.52 10*6/?L. The reference range was not used to interpret this result as normal/abnormal . HGB (test code = 15.3 g/dL 12.2-16.4 718-7) HCT (test code = 47.1 % 38.4-49.3 4544-3) MCV (test code = 96.7 fL 81.7-95.6 H 787-2) MCH (test code = 31.4 pg 26.1-32.7 785-6) MCHC (test code = 32.5 g/dL 31.2-35.0 786-4) RDW-SD (test code = 50.5 fL 38.5-51.6 70712-5) RDW-CV (test code = 14.2 % 12.1-15.4 788-0) PLT (test code = See_Comment [Automated 777-3) message] The sy stem which generated this result transmitted reference range : 150 - 328 10*3/ ?L. The reference r minerva was not used to interpret this result as normal/abnormal . MPV (test code = 10.9 fL 9.8-13.0 74242-9) NRBC/100 WBC (test See_Comment [Automat ed code = 2957280361) message] The system which generated this result transmitted reference range : 0.0 - 10.0 /100 WBCs. The refer ence range was not u sed to interpret th is result as normal/abnormal . NRBC x10^3 (test code <0.01 See_Comment [Auto mated = 4622067265) message] The s ystem which generated this result transmitted reference range : 10*3/?L. The reference range was not used to interpret this result as normal/abnormal . GRAN MAT (NEUT) % 72.1 % (test code = 770-8) IMM GRAN % (test code 0.40 % = 8204038457) LYMPH % (test code = 19.4 % 736-9) MONO % (test code = 4.9 % 5905-5) EOS % (test code = 2.2 % 713-8) BASO % (test code = 1.0 % 706-2) GRAN MAT x10^3(ANC) 7.31 10*3/uL 1.99-6.95 H (test code = 6092015025) IMM GRAN x10^3 (test 0.04 10*3/uL 0.00-0.06 code = 4252393251) LYMPH x10^3 (test code 1.97 10*3/uL 1.09-3.23 = 731-0) MONO x10^3 (test code 0.50 10*3/uL 0.36-1.02 = 742-7) EOS x10^3 (test code = 0.22 10*3/uL 0.06-0.53 711-2) BASO x10^3 (test code 0.10 10*3/uL 0.01-0.09 H = 704-7) Lab Interpretation Abnormal (test code = 74753-8) [facility] 23:10:25 Test Item Value Reference Range Interpretation Comments NA (test code = 137 mmol/L 135-145 7073672141) K (test code = 4.0 mmol/L 3.5-5.0 8603550239) CL (test code = 104 mmol/L 98-108 4218063194) CO2 TOTAL (test code = 23 mmol/L 23-31 1165458362) AGAP (test code = 2-16 1951379477) BUN (test code = 21 mg/dL 7-23 1131807343) GLUCOSE (test code = 104 mg/dL 70-110 8650081001) CREATININE (test code = 0.92 mg/dL 0.60-1.25 8219715817) TOTAL BILI (test code = 0.6 mg/dL 0.1-1.5 0575932040) CALCIUM (test code = 9.5 mg/dL 8.6-10.6 4106694271) T PROTEIN (test code = 7.9 g/dL 6.3-8.2 1351415200) ALBUMIN (test code = 4.4 g/dL 3.5-5.0 5523308919) ALK PHOS (test code = 125 U/L 34-122 H 0465305951) ALTv (test code = 19 U/L 5-50 1742-6) AST(SGOT) (test code = 29 U/L 13-40 1431392710) eGFR (test code = mL/min/1.73m2 4825011859) NELI (test code = NELI) Association of Glomerular Filtration Rate (GFR) and Staging of Kidney Disease* + --+ --+ ------+| GFR (mL/min/1.73 m2) ?| With Kidney Damage ?| ?Without Kidney Damage+ --------+ --------+ +| ?>90 ?| ?Stage one ?| ? Normal ?+ ---+ ---+ -------+| ?60-89 ?| ?Stage two ?| ? Decreased GFR ? + --+ --+ ------+| ?30-59 ?| ?Stage three ?| ? Stage three ? + --+ --+ ------+| ?15-29 ?| ?Stage four ? | ? Stage four ?+ ---+ ---+ -------+| ?<15 (or dialysis) ? ?| ?Stage five ? | ? Stage five ?+ ---+ ---+ -------+ *Each stage assumes the associated GFR level has been in effect for at least three months. ?Stages 1 to 5, with or without kidney disease, indicate chronic kidney disease. Notes: Determination of stages one and two (with eGFR >59mL/min/1.73 m2) requires estimation of kidney damage for at least three months as defined by structural or functional abnormalities of the kidney, manifested by either:Pathological abnormalities or Markers of kidney damage (including abnormalities in the composition of the blood or urine or abnormalities in imaging tests). Lab Interpretation Abnormal (test code = 66696-9) [facility]10:05 Test Item Value Reference Range Interpretation Comments LIPASE (test code = 6670272829) 113 U/L 0-220 Lab Interpretation (test code = Normal 03487-9) [facility] 22:54:59 Test Item Value Reference Range Interpretation Comments APPEARANCE (test code = Clear Clear 9492107975) COLOR (test code = Yellow Yellow 0488915118) PH (test code = 4.8-8.0 6096830868) SP GRAVITY (test code = 1.003-1.030 5256153991) GLU U QUAL (test code = Normal Normal 4076341345) BLOOD (test code = 1+ Negative A 6853510139) KETONES (test code = Negative Negative 6904176499) PROTEIN (test code = Negative Negative 2887-8) UROBILIN (test code = Normal Normal 6355945206) BILIRUBIN (test code = Negative Negative 3674972763) NITRITE (test code = Negative Negative 3566682776) LEUK ALLNE (test code = Negative Negative 2540975746) RBC/HPF (test code = See_Comment H [Autom ated message] 4812042837) The system [employer] generated this result transmitted ref erence range: 0 - 3 HP F. The reference range was not used to int erpret this result as normal/abnormal . WBC/HPF (test code = See_Comment [Autom ated message] 0845013204) The system [employer] generated this result transmitted ref erence range: 0 - 5 HP F. The reference range was not used to int erpret this result as normal/abnormal . BACTERIA (test code = Negative Negative 7255320872) MUCOUS (test code = Slight Negative LPF A 8856250614) Lab Interpretation (test Abnormal code = 45117-6) [facility] with [id number] 22:41:37 Test Item Value Reference Range Interpretation Comments WBC (test code = See_Comment [Automated 2890-2) message] The sy stem which generated this result transmitted reference range : 4.20 - 10.70 10*3/?L. The reference range was not used to interpret this result as normal/abnormal . RBC (test code = See_Comment [Automated 769-8) message] The sy stem which generated this result transmitted reference range : 4.26 - 5.52 10*6/?L. The reference range was not used to interpret this result as normal/abnormal . HGB (test code = 13.4 g/dL 12.2-16.4 718-7) HCT (test code = 40.9 % 38.4-49.3 4544-3) MCV (test code = 95.8 fL 81.7-95.6 H 787-2) MCH (test code = 31.4 pg 26.1-32.7 785-6) MCHC (test code = 32.8 g/dL 31.2-35.0 786-4) RDW-SD (test code = 51.8 fL 38.5-51.6 H 41020-7) RDW-CV (test code = 14.6 % 12.1-15.4 788-0) PLT (test code = See_Comment [Automated 777-3) message] The sy stem which generated this result transmitted reference range : 150 - 328 10*3/ ?L. The reference r minerva was not used to interpret this result as normal/abnormal . MPV (test code = 11.1 fL 9.8-13.0 53712-6) NRBC/100 WBC (test See_Comment [Automat ed code = 2466128131) message] The system which generated this result transmitted reference range : 0.0 - 10.0 /100 WBCs. The refer ence range was not u sed to interpret th is result as normal/abnormal . NRBC x10^3 (test code <0.01 See_Comment [Auto mated = 8381911010) message] The s ystem which generated this result transmitted reference range : 10*3/?L. The reference range was not used to interpret this result as normal/abnormal . GRAN MAT (NEUT) % 69.5 % (test code = 770-8) IMM GRAN % (test code 0.40 % = 6888089217) LYMPH % (test code = 20.3 % 736-9) MONO % (test code = 7.1 % 5905-5) EOS % (test code = 1.9 % 713-8) BASO % (test code = 0.8 % 706-2) GRAN MAT x10^3(ANC) 5.45 10*3/uL 1.99-6.95 (test code = 2443490746) IMM GRAN x10^3 (test 0.03 10*3/uL 0.00-0.06 code = 9983378902) LYMPH x10^3 (test code 1.59 10*3/uL 1.09-3.23 = 731-0) MONO x10^3 (test code 0.56 10*3/uL 0.36-1.02 = 742-7) EOS x10^3 (test code = 0.15 10*3/uL 0.06-0.53 711-2) BASO x10^3 (test code 0.06 10*3/uL 0.01-0.09 = 704-7) Lab Interpretation Abnormal (test code = 10734-2) [facility] URINALYSIS, [id number] 16:24:00 Test Item Value Reference Range Interpretation Comments POCT U SP GRAV (test code = 1.015 mg/dl 1.005-1.025 3255) POCT PH U (test code = 3254) 6.0 mg/dl 5-8 POCT U LEUK EST (test code = Trace Negative - Negative 3263) POCT U NIT (test code = 3262) Negative Negative - Negative POCT U PROT (test code = Negative Negative - Negative 3259) POCT U GLU (test code = 3256) Negative Negative - Negative POCT U KETONE (test code = Negative Negative - Negative 3258) POCT U UROBILI (test code = 0.2 mg/dl 0.2-1 3260) POCT U BILI (test code = Negative Negative - Negative 3261) POCT U BLD (test code = 3257) Trace Negative - Negative POCT U COLOR (test code = yellow 3266) POCT U APPEAR (test code = clear 3267) Lab Interpretation (test code Abnormal = 20926-8) [facility] URINALYSIS, [id number] 16:24:00 Test Item Value Reference Range Interpretation Comments POCT U SP GRAV (test code = 1.015 mg/dl 1.005-1.025 3255) POCT PH U (test code = 3254) 6.0 mg/dl 5-8 POCT U LEUK EST (test code = Trace Negative - Negative 3263) POCT U NIT (test code = 3262) Negative Negative - Negative POCT U PROT (test code = Negative Negative - Negative 3259) POCT U GLU (test code = 3256) Negative Negative - Negative POCT U KETONE (test code = Negative Negative - Negative 3258) POCT U UROBILI (test code = 0.2 mg/dl 0.2-1 3260) POCT U BILI (test code = Negative Negative - Negative 3261) POCT U BLD (test code = 3257) Trace Negative - Negative POCT U COLOR (test code = yellow 3266) POCT U APPEAR (test code = clear 3267) Lab Interpretation (test code Abnormal = 61563-2) [facility] URINALYSIS, [id number] 16:24:00 Test Item Value Reference Range Interpretation Comments POCT U SP GRAV (test code = 1.015 mg/dl 1.005-1.025 3255) POCT PH U (test code = 3254) 6.0 mg/dl 5-8 POCT U LEUK EST (test code = Trace Negative - Negative 3263) POCT U NIT (test code = 3262) Negative Negative - Negative POCT U PROT (test code = Negative Negative - Negative 3259) POCT U GLU (test code = 3256) Negative Negative - Negative POCT U KETONE (test code = Negative Negative - Negative 3258) POCT U UROBILI (test code = 0.2 mg/dl 0.2-1 3260) POCT U BILI (test code = Negative Negative - Negative 3261) POCT U BLD (test code = 3257) Trace Negative - Negative POCT U COLOR (test code = yellow 3266) POCT U APPEAR (test code = clear 3267) Lab Interpretation (test code Abnormal = 34630-4) [facility] URINALYSIS, [id number] 16:24:00 Test Item Value Reference Range Interpretation Comments POCT U SP GRAV (test code = 1.015 mg/dl 1.005-1.025 3255) POCT PH U (test code = 3254) 6.0 mg/dl 5-8 POCT U LEUK EST (test code = Trace Negative - Negative 3263) POCT U NIT (test code = 3262) Negative Negative - Negative POCT U PROT (test code = Negative Negative - Negative 3259) POCT U GLU (test code = 3256) Negative Negative - Negative POCT U KETONE (test code = Negative Negative - Negative 3258) POCT U UROBILI (test code = 0.2 mg/dl 0.2-1 3260) POCT U BILI (test code = Negative Negative - Negative 3261) POCT U BLD (test code = 3257) Trace Negative - Negative POCT U COLOR (test code = yellow 3266) POCT U APPEAR (test code = clear 3267) Lab Interpretation (test code Abnormal = 76788-5) [facility], [id number] 19:20:28 Test Item Value Reference Range Interpretation Comments VIT B12 (test code = 232 pg/mL 240-930 L 2135142946) NELI (test code = NELI) Biotin has been reported to cause a positive bias, interpret results relative to patient's use of biotin. Lab Interpretation (test Abnormal code = 96663-5) [facility] D, [id number] 17:12:08 Test Item Value Reference Range Interpretation Comments VIT D 25OH (test code = 35 ng/mL 25-80 05916-4) NELI (test code = NELI) Deficiency: <20 ng/mLInsufficiency : 20-24 ng/mLOptimal: 25-80 ng/mL Lab Interpretation (test Normal code = 01891-9) [facility] [id number] 10:45:00 Test Item Value Reference Range Interpretation Comments TROPONIN I (test 0.005 ng/mL See_Comment [Automated code = 5571357442) message] The system which generated this result transmitted reference range : <=0.034. The reference range was not used to interpret this result as normal/abnormal . NELI (test code = Equal or Less than NELI) 0.034 ng/ml---Normal ?Note: Cardiac troponin begins to rise 3-4 hours after the onset of ischemia. Repeat in 4-6 hours if the sample was drawn within 3-4 hours of the onset of the symptom and found normal. Between 0.035 and 0.120 ng/mL--- Borderline. Questionable myocardial injury or necrosis ? ?Note: Serial measurement may be necessary to confirm or exclude the diagnosis of myocardial injury or necrosis; Clinical correlation (symptoms, EKGs, imaging studies, and others) required; Repeat in 4-6 hours if clinically indicated. ? Equal or Higher than 0.121 ng/mL---Abnormal. Myocardial Injury or Necrosis Likely ? Biotin has been reported to cause a negative bias, interpret results relative to patient's use of biotin. ? Lab Interpretation Normal (test code = 38441-0) [facility] Tyler[facility]-TERMINAL [id number] 10:42:39 Test Item Value Reference Range Interpretation Comments NT-proBNP (test code 3840 pg/mL See_Comment H [Autom ated = 1673641828) message] The system which generated this result transmitted reference range : <=125. The reference range was not used to interpret this result as normal/abnormal . NELI (test code = NELI) Biotin has been reported to cause a negative bias, interpret results relative to patient's use of biotin. Lab Interpretation Abnormal (test code = 45888-9) [facility]2021-[facility]-22 10:36:39 Test Item Value Reference Range Interpretation Comments MAGNESIUM (test code = 6048398323) 2.3 mg/dL 1.7-2.4 Lab Interpretation (test code = Normal 29386-0) [facility] Tyler[facility] Met[facility] (NA, K, CL, CO2, GLUCOSE, BUN, CREATININE, CA)2020-10-25 10:36:19 Test Item Value Reference Range Interpretation Comments NA (test code = 139 mmol/L 135-145 8070046116) K (test code = 3.8 mmol/L 3.5-5.0 5871926652) CL (test code = 107 mmol/L 98-108 6994353701) CO2 TOTAL (test code 25 mmol/L 23-31 = 7649877387) AGAP (test code = 2-16 7475998877) BUN (test code = 15 mg/dL 7-23 5118438153) GLUCOSE (test code = 78 mg/dL 70-110 1877767543) CREATININE (test code 0.89 mg/dL 0.60-1.25 = 9204270022) CALCIUM (test code = 9.0 mg/dL 8.6-10.6 0196782269) eGFR (test code = mL/min/1.73m2 0245111863) NELI (test code = NELI) Association of Glomerular Filtration Rate (GFR) and Staging of Kidney Disease* + + +- +| GFR (mL/min/1.73 m2) ?| With Kidney Damage ?| ?Without Kidney Damage+ ------+ ----+ ------+| ?>90 ?| ?Stage one ?| ? Normal ?+ -+ + -+| ?60-89 ?| ?Stage two ?| ? Decreased GFR ? + + +- +| ?30-59 ?| ?Stage three ?| ? Stage three ? + + +- +| ?15-29 ?| ?Stage four ? | ? Stage four ?+ -+ + -+| ?<15 (or dialysis) ? ?| ?Stage five ? | ? Stage five ?+ -+ + -+ *Each stage assumes the associated GFR level has been in effect for at least three months. ?Stages 1 to 5, with or without kidney disease, indicate chronic kidney disease. Notes: Determination of stages one and two (with eGFR >59mL/min/1.73 m2) requires estimation of kidney damage for at least three months as defined by structural or functional abnormalities of the kidney, manifested by either:Pathological abnormalities or Markers of kidney damage (including abnormalities in the composition of the blood or urine or abnormalities in imaging tests). [facility]21[facility] 10:36:19 Test Item Value Reference Range Interpretation Comments PHOSPHORUS (test code = 7596372581) 3.1 mg/dL 2.5-5.0 Lab Interpretation (test code = Normal 95894-4) [facility] with [id number] 10:12:55 Test Item Value Reference Range Interpretation Comments WBC (test code = See_Comment [Automated 1290-2) message] The sy stem which generated this result transmitted reference range : 4.20 - 10.70 10*3/?L. The reference range was not used to interpret this result as normal/abnormal . RBC (test code = See_Comment L [Automated 169-8) message] The sy stem which generated this result transmitted reference range : 4.26 - 5.52 10*6/?L. The reference range was not used to interpret this result as normal/abnormal . HGB (test code = 12.7 g/dL 12.2-16.4 718-7) HCT (test code = 39.5 % 38.4-49.3 4544-3) MCV (test code = 94.7 fL 81.7-95.6 787-2) MCH (test code = 30.5 pg 26.1-32.7 785-6) MCHC (test code = 32.2 g/dL 31.2-35.0 786-4) RDW-SD (test code = 55.1 fL 38.5-51.6 H 83793-6) RDW-CV (test code = 15.6 % 12.1-15.4 H 788-0) PLT (test code = See_Comment [Automated 777-3) message] The sy stem which generated this result transmitted reference range : 150 - 328 10*3/ ?L. The reference r minerva was not used to interpret this result as normal/abnormal . MPV (test code = 12.0 fL 9.8-13.0 03322-9) NRBC/100 WBC (test See_Comment [Automat ed code = 0230727877) message] The system which generated this result transmitted reference range : 0.0 - 10.0 /100 WBCs. The refer ence range was not u sed to interpret th is result as normal/abnormal . NRBC x10^3 (test code <0.01 See_Comment [Auto mated = 3897725977) message] The s ystem which generated this result transmitted reference range : 10*3/?L. The reference range was not used to interpret this result as normal/abnormal . GRAN MAT (NEUT) % 72.5 % (test code = 770-8) IMM GRAN % (test code 0.40 % = 5384945736) LYMPH % (test code = 19.0 % 736-9) MONO % (test code = 5.0 % 5905-5) EOS % (test code = 2.1 % 713-8) BASO % (test code = 1.0 % 706-2) GRAN MAT x10^3(ANC) 6.82 10*3/uL 1.99-6.95 (test code = 4200909020) IMM GRAN x10^3 (test 0.04 10*3/uL 0.00-0.06 code = 3089600094) LYMPH x10^3 (test code 1.79 10*3/uL 1.09-3.23 = 731-0) MONO x10^3 (test code 0.47 10*3/uL 0.36-1.02 = 742-7) EOS x10^3 (test code = 0.20 10*3/uL 0.06-0.53 711-2) BASO x10^3 (test code 0.09 10*3/uL 0.01-0.09 = 704-7) Lab Interpretation Abnormal (test code = 53322-9) [facility]TR[facility] [id number] 06:46:19 Test Item Value Reference Range Interpretation Comments TROPONIN I (test 0.007 ng/mL See_Comment [Automated code = 1997602104) message] The system which generated this result transmitted reference range : <=0.034. The reference range was not used to interpret this result as normal/abnormal . NELI (test code = Equal or Less than NELI) 0.034 ng/ml---Normal ?Note: Cardiac troponin begins to rise 3-4 hours after the onset of ischemia. Repeat in 4-6 hours if the sample was drawn within 3-4 hours of the onset of the symptom and found normal. Between 0.035 and 0.120 ng/mL--- Borderline. Questionable myocardial injury or necrosis ? ?Note: Serial measurement may be necessary to confirm or exclude the diagnosis of myocardial injury or necrosis; Clinical correlation (symptoms, EKGs, imaging studies, and others) required; Repeat in 4-6 hours if clinically indicated. ? Equal or Higher than 0.121 ng/mL---Abnormal. Myocardial Injury or Necrosis Likely ? Biotin has been reported to cause a negative bias, interpret results relative to patient's use of biotin. ? Lab Interpretation Normal (test code = 81241-4) [facility] 06:16:55 Test Item Value Reference Range Interpretation Comments APPEARANCE (test code = Clear Clear 1391469751) COLOR (test code = Yellow Yellow 7757640085) PH (test code = 4.8-8.0 2931928742) SP GRAVITY (test code = 1.003-1.030 8524317952) GLU U QUAL (test code = Normal Normal 3597669335) BLOOD (test code = Negative Negative 7777085312) KETONES (test code = Negative Negative 6554072355) PROTEIN (test code = Negative Negative 2887-8) UROBILIN (test code = Normal Normal 1691708156) BILIRUBIN (test code = Negative Negative 1815623200) NITRITE (test code = Negative Negative 4386634115) LEUK ALLEN (test code = Negative Negative 9190031466) RBC/HPF (test code = See_Comment [Autom ated message] 0667599876) The system [employer] generated this result transmitted ref erence range: 0 - 3 HP F. The reference range was not used to int erpret this result as normal/abnormal . WBC/HPF (test code = See_Comment H [Autom ated message] 9339664584) The system [employer] generated this result transmitted ref erence range: 0 - 5 HP F. The reference range was not used to int erpret this result as normal/abnormal . BACTERIA (test code = Negative Negative 7909714596) MUCOUS (test code = Slight Negative LPF A 6687543083) SQ EPITH (test code = <1 HPF 7531173606) Lab Interpretation (test Abnormal code = 84633-8) [facility] TylerSEDIMENTATION [id number] 03:04:19 Test Item Value Reference Range Interpretation Comments ESR (test code = See_Comment [Automated message] 5523154207) The system [employer] generated this result transmitted ref erence range: 0 - 10 m m/HR. The reference r minerva was not used to interpret this result as normal/abnor mal. Lab Interpretation (test Normal code = 01541-4) [facility] TylerCT ABDOMEN PELVIS WO [id number] 01:06:34 1. ?Prominent stone with partial staghorn configuration seen in the leftrenal pelvis with mild left-sided hydronephrosis.2. Several additional nonobstructing left renal stones.3. No acute intraperitoneal abnormalities are seen on this noncontrast RL: 135 END OF REPORT ORDERING PHYSICIAN:ERIK WHEAT CLINICAL INFORMATION: ? Flank pain, kidney stone suspected Renal stoneprotocol COMPARISON: None Technique: ? CT of the abdomen and pelvis was performed without IV or p.o.contrast. Multiplanar reformats were also obtained. This study wasperformed according to ALARA principle for radiation dose reduction. Findings: 1.9 x 1.3 cm stone with partial staghorn configuration is seen in the renalpelvis at the UPJ. There is very mild associated right-sidedhydronephrosis. Nonobstructing renal stones measuring up to 1.2 cm is alsoseen in the inferior pole of the left kidney. Additional punctatenonobstructing stone is in the superior pole of the left kidney. Renalvascular calcifications are seen in the right kidney. No urinarycalcifications are seen on the right. Unenhanced liver, gallbladder, spleen, adrenal glands, and pancreas show noevidence of gross abnormalities. There is no bowel obstruction. There is noappendicitis. No free air or free fluid is seen in the abdomen or pelvis.No discrete pathologically enlarged lymph nodes are seen in the abdomen orpelvis. There is evidence of some pulmonary vascular congestion. Lung basesare otherwise clear. No suspicious focal osseous lesions are seen. [facility], Radiant Results Inft User - 10/24/2020 8:07 PM CDT ORDERING PHYSICIAN:CANDELARIO CLINICAL INFORMATION: Flank pain, kidney stone suspected Renal stoneprotocolCOMPARISON: NoneTechnique: CT of the abdomen and pelvis was performed without IV or p.o.contrast. Multiplanar reformats were also obtained. This study wasperformed according to ALARA principle for radiation dose reduction.Findings:1.9 x 1.3 cm stone with partial staghorn configuration is seen in the renalpelvis atthe UPJ. There is very mild associated right- sidedhydronephrosis. Nonobstructing renal stones measuring up to 1.2 cm is alsoseen in the inferior pole of the left kidney. Additional punctatenonobstructing stone is in the superior pole of the left kidney. Renalvascular calcifications are seen in the right kidney. No urinarycalcifications are seen on the right.Unenhanced liver, gallbladder, spleen, adrenal glands, and pancreas show noevidence of gross abnormalities. There is no bowel obstruction. Thereis noappendicitis. No free air or free fluid is seen in the abdomen or pelvis.No discrete pathologically enlarged lymph nodes are seen in the abdomen orpelvis. There is evidence of some pulmonary vascular congestion. Lung basesare otherwise clear. No suspicious focal osseous lesions are seen.IMPRESSION1. 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 Several additional nonobstructing left renal stones.3. No acute intraperitoneal abnormalities are seen on this noncontrastRL: 135END OF REPORT [facility]UR[facility] [id number] 00:56:33 Test Item Value Reference Range Interpretation Comments URIC ACID (test code = 8321052171) 4.2 mg/dL 3.6-8.0 Lab Interpretation (test code = Normal 94800-4) [facility]2021-[facility]-22 00:56:28 Test Item Value Reference Range Interpretation Comments PHOSPHORUS (test code = 6940287060) 3.2 mg/dL 2.5-5.0 Lab Interpretation (test code = Normal 14112-9) [facility] 00:56:22 Test Item Value Reference Range Interpretation Comments MAGNESIUM (test code = 7925072129) 1.6 mg/dL 1.7-2.4 L Lab Interpretation (test code = Abnormal 02045-4) [facility] TylerGLYCOSYLATED HEMOGLOBIN (A1C)2020-10-25 00:54:47 Test Item Value Reference Range Interpretation Comments HGB A1C (test code = 5.7 % 4.0-5.7 4548-4) NELI (test code = NELI) Reference RangesNormal: <5.7%Prediabetes: 5.7 - 6.4%Diabetes: > 6.5% Lab Interpretation (test Normal code = 30740-7) [facility] TylerLIPID PANEL (17526)(TOTAL CHOLESTEROL, TRIGLYCERIDES, HDL)2020-10-25 00:51:55 Test Item Value Reference Range Interpretation Comments CHOL (test code = 120 mg/dL 120-200 5547252429) HDL (test code = 35 mg/dL >40 L 3772563044) HDLC RATIO (test code = See_Comment [Au tomated message] 9789601988) The system [employer] generated this result transmit sb reference range : <=5.0. The refe rence range was not u sed to interpret th is result as normal/abnormal . TRIG (test code = 133 mg/dL 30-170 2341570299) LDL CHOL (test code = 58 mg/dL See_Comment [Auto mated message] 97924-7) The system [employer] generated this result transmit sb reference range : <=160. The refe rence range was not u sed to interpret th is result as normal/abnormal . VLDL (test code = 27 mg/dL 5-60 2422170947) Lab Interpretation (test Abnormal code = 06784-0) [facility] [place] CHE[facility] 1 [id number] 21:08:26 No acute cardiopulmonary abnormality. Preliminary Report Dictated by Resident: Maikol Aparicio MD., have reviewed this study and agree with the abovereport.EXAM: XR CHEST 1 VW HISTORY: 55 years-old Male; chest pain TECHNIQUE: Single frontal view COMPARISON: Chest radiographs and CT dated 12/28/2019 FINDINGS: The lungs are clear and well-expanded. The cardiomediastinal silhouette is normal. Coronary arterial stents areseen. Calcifications outline the aortic arch. No acute osseous abnormality is present. [facility], Radiant Results Inft User - 10/24/2020 4:09 PM CDT EXAM: XR CHEST 1 VWHISTORY: 55 years-old Male; chest pain TECHNIQUE: Single frontal viewCOMPARISON: Chest radiographs and CT dated 12/28/2019FINDINGS:The lungs are clear and well-expanded.The cardiomediastinal silhouette is normal. Coronary arterial stents areseen.Calcifications outline the aortic arch. No acute osseous abnormality is present. IMPRESSIONNo acute c ardiopulmonary abnormality.Preliminary Report Dictated by Resident: Maikol Carrillo MD., have reviewed this study and agree with the abovereport.[facility]IM[facility]ORMONE 2020-10-24 20:10:29 Test Item Value Reference Range Interpretation Comments TSH (test code = See_Comment Biotin has been 5270824418) reported to cau se a negative bias, interpret resul ts relative to pat hailey's use of biotin. [Automated mess age] The system [employer] generated this result transmitted ref erence range: 0.45 - 4 .70 mIU/L. The refe rence range was not u sed to interpret this result as normal/abnor mal. Lab Interpretation (test Normal code = 35213-0) [facility] TylerTroponin [id number] 18:01:23 Test Item Value Reference Range Interpretation Comments TROPONIN I (test 0.004 ng/mL See_Comment [Automated code = 6805920419) message] The system which generated this result transmitted reference range : <=0.034. The reference range was not used to interpret this result as normal/abnormal . NELI (test code = Equal or Less than NELI) 0.034 ng/ml---Normal ?Note: Cardiac troponin begins to rise 3-4 hours after the onset of ischemia. Repeat in 4-6 hours if the sample was drawn within 3-4 hours of the onset of the symptom and found normal. Between 0.035 and 0.120 ng/mL--- Borderline. Questionable myocardial injury or necrosis ? ?Note: Serial measurement may be necessary to confirm or exclude the diagnosis of myocardial injury or necrosis; Clinical correlation (symptoms, EKGs, imaging studies, and others) required; Repeat in 4-6 hours if clinically indicated. ? Equal or Higher than 0.121 ng/mL---Abnormal. Myocardial Injury or Necrosis Likely ? Biotin has been reported to cause a negative bias, interpret results relative to patient's use of biotin. ? Lab Interpretation Normal (test code = 71893-9) [facility]OVID[facility] (ID NOW RAPID TESTING)2020-10-24 18:00:44 Test Item Value Reference Range Interpretation Comments SARS-CoV-2 Rapid ID NOW Not Detected Not Detected (test code = 96310-0) NELI (test code = NELI) ID NOW COVID-19 Assay is an isothermal nucleic acid amplification test intended for the qualitative detection of nucleic acid from SARS-CoV-2 viral RNA in nasopharyngeal ([employer]) specimens. It is used under Emergency Use Authorization (EUA) by FDA. The limit of detection (LOD) of the assay is 125 Genome Equivalents/mL. A positive result is indicative of the presence of SARS-CoV-2 RNA. ?Clinical correlation with patient history and other diagnostic information is necessary to determine patient infection status. A negative (Not Detected) result does not preclude SARS-CoV-2 infection. In patients with clinical symptoms and other tests that are consistent with SARS-CoV-2 infection, negative results should be treated as presumptive negative and a new specimen should be tested with alternative PCR molecular test. Invalid: Please collect a new specimen for repeat patient testing if clinically indicated. Lab Interpretation Normal (test code = 92104-4) [facility] TylerN-TERMINAL [id number] 17:58:01 Test Item Value Reference Range Interpretation Comments NT-proBNP (test code 3300 pg/mL See_Comment H [Autom ated = 9916387598) message] The system which generated this result transmitted reference range : <=125. The reference range was not used to interpret this result as normal/abnormal . NELI (test code = NELI) Biotin has been reported to cause a negative bias, interpret results relative to patient's use of biotin. Lab Interpretation Abnormal (test code = 80413-6) [facility] Tyler[facility] Metabolic Panel (NA, K, CL, CO2, GLUCOSE, BUN, CREATININE, CA)2020-10-24 17:51:19 Test Item Value Reference Range Interpretation Comments NA (test code = 139 mmol/L 135-145 1159791315) K (test code = 3.5 mmol/L 3.5-5.0 8040517235) CL (test code = 109 mmol/L 98-108 H 5657403091) CO2 TOTAL (test code = 21 mmol/L 23-31 L 1084262910) AGAP (test code = 2-16 2803452198) BUN (test code = 15 mg/dL 7-23 0116013837) GLUCOSE (test code = 126 mg/dL 70-110 H 5831763167) CREATININE (test code = 0.86 mg/dL 0.60-1.25 6206340009) CALCIUM (test code = 9.2 mg/dL 8.6-10.6 2785377097) eGFR (test code = mL/min/1.73m2 7885403281) NELI (test code = NELI) Association of Glomerular Filtration Rate (GFR) and Staging of Kidney Disease* + --+ --+ ------+| GFR (mL/min/1.73 m2) ?| With Kidney Damage ?| ?Without Kidney Damage+ --------+ --------+ +| ?>90 ?| ?Stage one ?| ? Normal ?+ ---+ ---+ -------+| ?60-89 ?| ?Stage two ?| ? Decreased GFR ? + --+ --+ ------+| ?30-59 ?| ?Stage three ?| ? Stage three ? + --+ --+ ------+| ?15-29 ?| ?Stage four ? | ? Stage four ?+ ---+ ---+ -------+| ?<15 (or dialysis) ? ?| ?Stage five ? | ? Stage five ?+ ---+ ---+ -------+ *Each stage assumes the associated GFR level has been in effect for at least three months. ?Stages 1 to 5, with or without kidney disease, indicate chronic kidney disease. Notes: Determination of stages one and two (with eGFR >59mL/min/1.73 m2) requires estimation of kidney damage for at least three months as defined by structural or functional abnormalities of the kidney, manifested by either:Pathological abnormalities or Markers of kidney damage (including abnormalities in the composition of the blood or urine or abnormalities in imaging tests). Lab Interpretation Abnormal (test code = 09720-4) [facility] TylerHepatic Function Panel (ALB, T.PRO, BILI T, BU/BC, ALT, AST, ALK PHOS)2020-10-24 17:50:43 Test Item Value Reference Range Interpretation Comments TOTAL BILI (test code = 7306574540) 0.7 mg/dL 0.1-1.1 BILI UNCON (test code = 6163489605) 0.5 mg/dL 0.1-1.1 BILI CONJ (test code = 5107387098) 0.0 mg/dL 0.0-0.3 T PROTEIN (test code = 2767017384) 6.8 g/dL 6.3-8.2 ALBUMIN (test code = 0291968064) 3.8 g/dL 3.5-5.0 ALK PHOS (test code = 4118225874) 101 U/L 34-122 ALTv (test code = 1742-6) 13 U/L 5-50 AST(SGOT) (test code = 2726020753) 23 U/L 13-40 Lab Interpretation (test code = Normal 62049-4) [facility] TyleraPTT2021-06-21 17:48:26 Test Item Value Reference Range Interpretation Comments APTT Patient (test See_Comment [Automat ed code = 3173-2) message] The system which generated this result transmitted reference range : 23 - 38 Seconds . The reference range was not used to interpr et this result as normal/abnormal . NELI (test code = NELI) The [facility] patient population mean normal value for aPTT is 30 seconds. Lab Interpretation Normal (test code = 30296-6) [facility] TylerProthrombin Time (PT) / [id number] 17:46:19 Test Item Value Reference Range Interpretation Comments PROTIME PATIENT (test See_Comment [Auto mated message] code = 5964-2) The system wh ich generated this result transmitted ref erence range: 12.0 - 1 4.7 Seconds. The re ference range was not u sed to interpret this result as normal/abnor mal. INR (test code = 6301-6) Nor mal INR <1.1; Warfarin Therap eutic range 2.0 to 3. 0 or 2.5 to 3.5, dep ending upon the indica tions. Lab Interpretation (test Normal code = 80897-0) [facility] TylerCBC with [id number] 17:40:00 Test Item Value Reference Range Interpretation Comments WBC (test code = See_Comment [Automated 3490-2) message] The sy stem which generated this result transmitted reference range : 4.20 - 10.70 10*3/?L. The reference range was not used to interpret this result as normal/abnormal . RBC (test code = See_Comment L [Automated 159-8) message] The sy stem which generated this result transmitted reference range : 4.26 - 5.52 10*6/?L. The reference range was not used to interpret this result as normal/abnormal . HGB (test code = 12.5 g/dL 12.2-16.4 718-7) HCT (test code = 37.7 % 38.4-49.3 L 4544-3) MCV (test code = 93.5 fL 81.7-95.6 787-2) MCH (test code = 31.0 pg 26.1-32.7 785-6) MCHC (test code = 33.2 g/dL 31.2-35.0 786-4) RDW-SD (test code = 54.0 fL 38.5-51.6 H 03241-5) RDW-CV (test code = 15.5 % 12.1-15.4 H 788-0) PLT (test code = See_Comment [Automated 777-3) message] The sy stem which generated this result transmitted reference range : 150 - 328 10*3/ ?L. The reference r minerva was not used to interpret this result as normal/abnormal . MPV (test code = 11.6 fL 9.8-13.0 69887-0) NRBC/100 WBC (test See_Comment [Automat ed code = 6312899493) message] The system which generated this result transmitted reference range : 0.0 - 10.0 /100 WBCs. The refer ence range was not u sed to interpret th is result as normal/abnormal . NRBC x10^3 (test code <0.01 See_Comment [Auto mated = 0373998562) message] The s ystem which generated this result transmitted reference range : 10*3/?L. The reference range was not used to interpret this result as normal/abnormal . GRAN MAT (NEUT) % 71.4 % (test code = 770-8) IMM GRAN % (test code 0.40 % = 8636695002) LYMPH % (test code = 19.8 % 736-9) MONO % (test code = 5.8 % 5905-5) EOS % (test code = 1.8 % 713-8) BASO % (test code = 0.8 % 706-2) GRAN MAT x10^3(ANC) 6.08 10*3/uL 1.99-6.95 (test code = 1946788279) IMM GRAN x10^3 (test 0.03 10*3/uL 0.00-0.06 code = 0010807503) LYMPH x10^3 (test code 1.68 10*3/uL 1.09-3.23 = 731-0) MONO x10^3 (test code 0.49 10*3/uL 0.36-1.02 = 742-7) EOS x10^3 (test code = 0.15 10*3/uL 0.06-0.53 711-2) BASO x10^3 (test code 0.07 10*3/uL 0.01-0.09 = 704-7) Lab Interpretation Abnormal (test code = 05938-7) [facility] (NA, K, CL, CO2, GLUCOSE, BUN, CREATININE, CA)2020-01-01 09:07:00 Test Item Value Reference Range Interpretation Comments NA (test code = 136 mmol/L 135-145 1027100552) K (test code = 4.1 mmol/L 3.5-5 1447387660) CL (test code = 104 mmol/L 98-108 3770935591) CO2 TOTAL (test code = 25 mmol/L 23-31 7260367682) AGAP (test code = 2-16 3000745997) BUN (test code = 23 mg/dL 7-23 2663978788) GLUCOSE (test code = 86 mg/dL 70-110 6543056848) CREATININE (test code 0.95 mg/dL 0.6-1.25 = 1190262131) CALCIUM (test code = 9.0 mg/dL 8.6-10.6 4439654770) eGFR Calculation mL/min/1.73m2 (Non-) (test code = 3794202666) eGFR Calculation mL/min/1.73m2 () (test code = 8567236625) NELI (test code = NELI) Association of Glomerular Filtration Rate (GFR) and Staging of Kidney Disease* + -+ + ---+| GFR (mL/min/1.73 m2) ?| With Kidney Damage ?| ?Without Kidney Damage+ -------+ ------+ ---------+| ?>90 ?| ?Stage one ?| ? Normal ?+ --+ -+ ----+| ?60-89 ?| ?Stage two ?| ? Decreased GFR ? + -+ + ---+| ?30-59 ?| ?Stage three ?| ? Stage three ? + -+ + ---+| ?15-29 ?| ?Stage four ? | ? Stage four ?+ --+ -+ ----+| ?<15 (or dialysis) ? ?| ?Stage five ? | ? Stage five ?+ --+ -+ ----+ *Each stage assumes the associated GFR level has been in effect for at least three months. ?Stages 1 to 5, with or without kidney disease, indicate chronic kidney disease. Notes: Determination of stages one and two (with eGFR >59mL/min/1.73 m2) requires estimation of kidney damage for at least three months as defined by structural or functional abnormalities of the kidney, manifested by either:Pathological abnormalities or Markers of kidney damage (including abnormalities in the composition of the blood or urine or abnormalities in imaging tests). [facility] with [id number] 08:39:00 Test Item Value Reference Range Interpretation Comments WBC (test code = See_Comment [Automated 2890-2) message] The sy stem which generated this result transmitted reference range : 4.20 - 10.70 10*3/?L. The reference range was not used to interpret this result as normal/abnormal . RBC (test code = See_Comment [Automated 549-8) message] The sy stem which generated this result transmitted reference range : 4.26 - 5.52 10*6/?L. The reference range was not used to interpret this result as normal/abnormal . HGB (test code = 13.0 g/dL 12.2-16.4 718-7) HCT (test code = 41.4 % 38.4-49.3 4544-3) MCV (test code = 91.4 fL 81.7-95.6 787-2) MCH (test code = 28.7 pg 26.1-32.7 785-6) MCHC (test code = 31.4 g/dL 31.2-35 786-4) RDW-SD (test code = 64.6 fL 38.5-51.6 H 89564-8) RDW-CV (test code = 19.0 % 12.1-15.4 H 788-0) PLT (test code = See_Comment [Automated 777-3) message] The sy stem which generated this result transmitted reference range : 150 - 328 10*3/ ?L. The reference r minerva was not used to interpret this result as normal/abnormal . MPV (test code = 10.4 fL 9.8-13 89748-4) NRBC/100 WBC (test See_Comment [Automat ed code = 1888268192) message] The system which generated this result transmitted reference range : 0.0 - 10.0 /100 WBCs. The refer ence range was not u sed to interpret th is result as normal/abnormal . NRBC x10^3 (test code <0.01 See_Comment [Auto mated = 2863752309) message] The s ystem which generated this result transmitted reference range : 10*3/?L. The reference range was not used to interpret this result as normal/abnormal . GRAN MAT (NEUT) % 63.5 % (test code = 770-8) IMM GRAN % (test code 0.30 % = 5513154246) LYMPH % (test code = 27.8 % 736-9) MONO % (test code = 6.3 % 5905-5) EOS % (test code = 1.3 % 713-8) BASO % (test code = 0.8 % 706-2) GRAN MAT x10^3(ANC) 4.96 10*3/uL 1.99-6.95 (test code = 5706302886) IMM GRAN x10^3 (test <0.03 0-0.06 code = 3863358175) LYMPH x10^3 (test code 2.17 10*3/uL 1.09-3.23 = 731-0) MONO x10^3 (test code 0.49 10*3/uL 0.36-1.02 = 742-7) EOS x10^3 (test code = 0.10 10*3/uL 0.06-0.53 711-2) BASO x10^3 (test code 0.06 10*3/uL 0.01-0.09 = 704-7) Lab Interpretation Abnormal (test code = 59561-8) [facility] METABOLIC PANEL (NA, K, CL, CO2, GLUCOSE, BUN, CREATININE, CA)2019-12-31 09:33:00 Test Item Value Reference Range Interpretation Comments NA (test code = 136 mmol/L 135-145 8517886970) K (test code = 3.2 mmol/L 3.5-5 L 0021525752) CL (test code = 99 mmol/L 98-108 3606559218) CO2 TOTAL (test code = 29 mmol/L 23-31 4296008743) AGAP (test code = 2-16 3546059293) BUN (test code = 19 mg/dL 7-23 4849829955) GLUCOSE (test code = 90 mg/dL 70-110 4636605519) CREATININE (test code = 0.92 mg/dL 0.6-1.25 7712942561) CALCIUM (test code = 8.5 mg/dL 8.6-10.6 L 6297398746) eGFR Calculation mL/min/1.73m2 (Non-) (test code = 3601864170) eGFR Calculation mL/min/1.73m2 () (test code = 6183932046) NELI (test code = NELI) Association of Glomerular Filtration Rate (GFR) and Staging of Kidney Disease* + --+ --+ ------+| GFR (mL/min/1.73 m2) ?| With Kidney Damage ?| ?Without Kidney Damage+ --------+ --------+ +| ?>90 ?| ?Stage one ?| ? Normal ?+ ---+ ---+ -------+| ?60-89 ?| ?Stage two ?| ? Decreased GFR ? + --+ --+ ------+| ?30-59 ?| ?Stage three ?| ? Stage three ? + --+ --+ ------+| ?15-29 ?| ?Stage four ? | ? Stage four ?+ ---+ ---+ -------+| ?<15 (or dialysis) ? ?| ?Stage five ? | ? Stage five ?+ ---+ ---+ -------+ *Each stage assumes the associated GFR level has been in effect for at least three months. ?Stages 1 to 5, with or without kidney disease, indicate chronic kidney disease. Notes: Determination of stages one and two (with eGFR >59mL/min/1.73 m2) requires estimation of kidney damage for at least three months as defined by structural or functional abnormalities of the kidney, manifested by either:Pathological abnormalities or Markers of kidney damage (including abnormalities in the composition of the blood or urine or abnormalities in imaging tests). Lab Interpretation Abnormal (test code = 67309-1) [facility] with [id number] 09:12:00 Test Item Value Reference Range Interpretation Comments WBC (test code = See_Comment [Automated 6690-2) message] The sy stem which generated this result transmitted reference range : 4.20 - 10.70 10*3/?L. The reference range was not used to interpret this result as normal/abnormal . RBC (test code = See_Comment [Automated 789-8) message] The sy stem which generated this result transmitted reference range : 4.26 - 5.52 10*6/?L. The reference range was not used to interpret this result as normal/abnormal . HGB (test code = 13.1 g/dL 12.2-16.4 718-7) HCT (test code = 40.1 % 38.4-49.3 4544-3) MCV (test code = 90.3 fL 81.7-95.6 787-2) MCH (test code = 29.5 pg 26.1-32.7 785-6) MCHC (test code = 32.7 g/dL 31.2-35 786-4) RDW-SD (test code = 63.2 fL 38.5-51.6 H 59901-1) RDW-CV (test code = 19.0 % 12.1-15.4 H 788-0) PLT (test code = See_Comment [Automated 777-3) message] The sy stem which generated this result transmitted reference range : 150 - 328 10*3/ ?L. The reference r minerva was not used to interpret this result as normal/abnormal . MPV (test code = 10.7 fL 9.8-13 85546-9) NRBC/100 WBC (test See_Comment [Automat ed code = 5871350142) message] The system which generated this result transmitted reference range : 0.0 - 10.0 /100 WBCs. The refer ence range was not u sed to interpret th is result as normal/abnormal . NRBC x10^3 (test code <0.01 See_Comment [Auto mated = 7369748805) message] The s ystem which generated this result transmitted reference range : 10*3/?L. The reference range was not used to interpret this result as normal/abnormal . GRAN MAT (NEUT) % 64.7 % (test code = 770-8) IMM GRAN % (test code 0.30 % = 3722614545) LYMPH % (test code = 25.3 % 736-9) MONO % (test code = 7.9 % 5905-5) EOS % (test code = 1.1 % 713-8) BASO % (test code = 0.7 % 706-2) GRAN MAT x10^3(ANC) 4.73 10*3/uL 1.99-6.95 (test code = 1333430099) IMM GRAN x10^3 (test <0.03 0-0.06 code = 3800368843) LYMPH x10^3 (test code 1.85 10*3/uL 1.09-3.23 = 731-0) MONO x10^3 (test code 0.58 10*3/uL 0.36-1.02 = 742-7) EOS x10^3 (test code = 0.08 10*3/uL 0.06-0.53 711-2) BASO x10^3 (test code 0.05 10*3/uL 0.01-0.09 = 704-7) Lab Interpretation Abnormal (test code = 07474-9) [id number] Test Item Value Reference Range Interpretation Comments TROPONIN I (test 0.089 ng/mL See_Comment H [Automated code = 4723488802) message] The system which generated this result transmitted reference range : <=0.034. The reference range was not used to interpret this result as normal/abnormal . NELI (test code = Equal or Less than NELI) 0.034 ng/ml---Normal ?Note: Cardiac troponin begins to rise 3-4 hours after the onset of ischemia. Repeat in 4-6 hours if the sample was drawn within 3-4 hours of the onset of the symptom and found normal. Between 0.035 and 0.120 ng/mL--- Borderline. Questionable myocardial injury or necrosis ? ?Note: Serial measurement may be necessary to confirm or exclude the diagnosis of myocardial injury or necrosis; Clinical correlation (symptoms, EKGs, imaging studies, and others) required; Repeat in 4-6 hours if clinically indicated. ? Equal or Higher than 0.121 ng/mL---Abnormal. Myocardial Injury or Necrosis Likely ? Biotin has been reported to cause a negative bias, interpret results relative to patient's use of biotin. ? Lab Interpretation Abnormal (test code = 26476-3) [facility] TylerED[facility] [id number] 11:53:00 Test Item Value Reference Range Interpretation Comments TROPONIN I (test 0.141 ng/mL See_Comment H [Automated code = 8842373703) message] The system which generated this result transmitted reference range : <=0.034. The reference range was not used to interpret this result as normal/abnormal . NELI (test code = Equal or Less than NELI) 0.034 ng/ml---Normal ?Note: Cardiac troponin begins to rise 3-4 hours after the onset of ischemia. Repeat in 4-6 hours if the sample was drawn within 3-4 hours of the onset of the symptom and found normal. Between 0.035 and 0.120 ng/mL--- Borderline. Questionable myocardial injury or necrosis ? ?Note: Serial measurement may be necessary to confirm or exclude the diagnosis of myocardial injury or necrosis; Clinical correlation (symptoms, EKGs, imaging studies, and others) required; Repeat in 4-6 hours if clinically indicated. ? Equal or Higher than 0.121 ng/mL---Abnormal. Myocardial Injury or Necrosis Likely ? Biotin has been reported to cause a negative bias, interpret results relative to patient's use of biotin. ? Lab Interpretation Abnormal (test code = 55468-5) [facility] TylerN-TERMINAL [id number] 11:53:00 Test Item Value Reference Range Interpretation Comments NT-proBNP (test code 5900 pg/mL See_Comment H [Autom ated = 4117862485) message] The system which generated this result transmitted reference range : <=125. The reference range was not used to interpret this result as normal/abnormal . NELI (test code = NELI) Biotin has been reported to cause a negative bias, interpret results relative to patient's use of biotin. Lab Interpretation Abnormal (test code = 56813-7) [facility] METABOLIC PAN[facility] (NA, K, CL, CO2, GLUCOSE, BUN, CREATININE, CA)2019-12-30 11:42:00 Test Item Value Reference Range Interpretation Comments NA (test code = 133 mmol/L 135-145 L 6881656501) K (test code = 3.0 mmol/L 3.5-5 L 5522965512) CL (test code = 98 mmol/L 98-108 1086319720) CO2 TOTAL (test code = 31 mmol/L 23-31 8769574999) AGAP (test code = 2-16 5817438066) BUN (test code = 18 mg/dL 7-23 3653074166) GLUCOSE (test code = 75 mg/dL 70-110 6221690996) CREATININE (test code = 0.83 mg/dL 0.6-1.25 1719200683) CALCIUM (test code = 8.0 mg/dL 8.6-10.6 L 9727758635) eGFR Calculation mL/min/1.73m2 (Non-) (test code = 1690191989) eGFR Calculation mL/min/1.73m2 () (test code = 2615646699) NELI (test code = NELI) Association of Glomerular Filtration Rate (GFR) and Staging of Kidney Disease* + --+ --+ ------+| GFR (mL/min/1.73 m2) ?| With Kidney Damage ?| ?Without Kidney Damage+ --------+ --------+ +| ?>90 ?| ?Stage one ?| ? Normal ?+ ---+ ---+ -------+| ?60-89 ?| ?Stage two ?| ? Decreased GFR ? + --+ --+ ------+| ?30-59 ?| ?Stage three ?| ? Stage three ? + --+ --+ ------+| ?15-29 ?| ?Stage four ? | ? Stage four ?+ ---+ ---+ -------+| ?<15 (or dialysis) ? ?| ?Stage five ? | ? Stage five ?+ ---+ ---+ -------+ *Each stage assumes the associated GFR level has been in effect for at least three months. ?Stages 1 to 5, with or without kidney disease, indicate chronic kidney disease. Notes: Determination of stages one and two (with eGFR >59mL/min/1.73 m2) requires estimation of kidney damage for at least three months as defined by structural or functional abnormalities of the kidney, manifested by either:Pathological abnormalities or Markers of kidney damage (including abnormalities in the composition of the blood or urine or abnormalities in imaging tests). Lab Interpretation Abnormal (test code = 34883-0) [id number] 11:42:00 Test Item Value Reference Range Interpretation Comments URIC ACID (test code = 0308257171) 6.5 mg/dL 3.6-8 Lab Interpretation (test code = Normal 66781-5) [facility]2020-[facility]-26 11:42:00 Test Item Value Reference Range Interpretation Comments MAGNESIUM (test code = 6609856926) 1.5 mg/dL 1.7-2.4 L Lab Interpretation (test code = Abnormal 55344-7) [facility] with [id number] 11:30:00 Test Item Value Reference Range Interpretation Comments WBC (test code = See_Comment [Automated 8552-2) message] The sy stem which generated this result transmitted reference range : 4.20 - 10.70 10*3/?L. The reference range was not used to interpret this result as normal/abnormal . RBC (test code = See_Comment [Automated 849-8) message] The sy stem which generated this result transmitted reference range : 4.26 - 5.52 10*6/?L. The reference range was not used to interpret this result as normal/abnormal . HGB (test code = 12.9 g/dL 12.2-16.4 718-7) HCT (test code = 40.1 % 38.4-49.3 4544-3) MCV (test code = 92.0 fL 81.7-95.6 787-2) MCH (test code = 29.6 pg 26.1-32.7 785-6) MCHC (test code = 32.2 g/dL 31.2-35 786-4) RDW-SD (test code = 65.8 fL 38.5-51.6 H 70522-8) RDW-CV (test code = 19.6 % 12.1-15.4 H 788-0) PLT (test code = See_Comment [Automated 777-3) message] The sy stem which generated this result transmitted reference range : 150 - 328 10*3/ ?L. The reference r minerva was not used to interpret this result as normal/abnormal . MPV (test code = 10.5 fL 9.8-13 87166-8) NRBC/100 WBC (test See_Comment [Automat ed code = 4697527289) message] The system which generated this result transmitted reference range : 0.0 - 10.0 /100 WBCs. The refer ence range was not u sed to interpret th is result as normal/abnormal . NRBC x10^3 (test code <0.01 See_Comment [Auto mated = 4304677841) message] The s ystem which generated this result transmitted reference range : 10*3/?L. The reference range was not used to interpret this result as normal/abnormal . GRAN MAT (NEUT) % 74.0 % (test code = 770-8) IMM GRAN % (test code 0.20 % = 5212153405) LYMPH % (test code = 16.3 % 736-9) MONO % (test code = 7.9 % 5905-5) EOS % (test code = 1.1 % 713-8) BASO % (test code = 0.5 % 706-2) GRAN MAT x10^3(ANC) 6.54 10*3/uL 1.99-6.95 (test code = 4695480740) IMM GRAN x10^3 (test <0.03 0-0.06 code = 7202626296) LYMPH x10^3 (test code 1.44 10*3/uL 1.09-3.23 = 731-0) MONO x10^3 (test code 0.70 10*3/uL 0.36-1.02 = 742-7) EOS x10^3 (test code = 0.10 10*3/uL 0.06-0.53 711-2) BASO x10^3 (test code 0.04 10*3/uL 0.01-0.09 = 704-7) Lab Interpretation Abnormal (test code = 60979-2) [facility] [id number] 16:24:00 Test Item Value Reference Range Interpretation Comments TROPONIN I (test 0.232 ng/mL See_Comment H [Automated code = 9754659902) message] The system which generated this result transmitted reference range : <=0.034. The reference range was not used to interpret this result as normal/abnormal . NELI (test code = Equal or Less than NELI) 0.034 ng/ml---Normal ?Note: Cardiac troponin begins to rise 3-4 hours after the onset of ischemia. Repeat in 4-6 hours if the sample was drawn within 3-4 hours of the onset of the symptom and found normal. Between 0.035 and 0.120 ng/mL--- Borderline. Questionable myocardial injury or necrosis ? ?Note: Serial measurement may be necessary to confirm or exclude the diagnosis of myocardial injury or necrosis; Clinical correlation (symptoms, EKGs, imaging studies, and others) required; Repeat in 4-6 hours if clinically indicated. ? Equal or Higher than 0.121 ng/mL---Abnormal. Myocardial Injury or Necrosis Likely ? Biotin has been reported to cause a negative bias, interpret results relative to patient's use of biotin. ? Lab Interpretation Abnormal (test code = 39778-1) [facility]AL[facility]ONIN2020-08-25 16:17:00 Test Item Value Reference Range Interpretation Comments Procalcitonin (test 0.27 ng/mL <0.07 H code = 9091444548) NELI (test code = NELI) INTERPRETATION OF PROCALCITONIN RESULTS IN ADULTS >= 18 YEARS OF AGE Initiation and discontinuation of antibiotics on patients with suspected or confirmed Lower Respiratory Tract Infection in Adults >= 18 years of age. + +-------- --------+ + -----+|Procalcitonin |Interpretation ?|Antibiotic ? ? |Considerations ? |ng/mL ? | ?|recommendation | ? + +-------- --------+ + -----+| <0.1 ? | Bacterial ? ? ?| Strongly ? ? ?| ? | ?| infection very | discouraged ? | Overruling: ? | ?| unlikely ? ? ? | ? | ? Clinically unstable ? ? ? + +-------- --------+ + ? High risk for adverse ? ? | <0.25 ?| Bacterial ? ? ?| Discouraged ? | ? outcome ? | ?| infection ? ? ?| ? | ? SEE IMPORTANT NOTE ?| ?| unlikely ? ? ? | ? | ? + +-------- --------+ + -----+| >=0.25 ? ? ? | Bacterial ? ? ?| Encouraged ? ?| ? | ?| infection ? ? ?| ? | ? | ?| likely ? | ? | Consider treatment failure ?+ +------- ---------+ -+ if levels does not decrease | >0.5 ? | Bacterial ? ? ?| Strongly ? ? ?| appropriately ? | ?| infection very | encouraged ? ?| ? | ?| likely ? | ? | ? + +-------- --------+ + -----+ Discontinuation of antibiotics in high-acuity patients with suspected or confirmed sepsis in Adults >= 18 years of age. + +-------- --------+ + -----+|Procalcitonin |Interpretation ?|Antibiotic ? ? |Considerations ? |ng/mL ? | ?|recommendation | ? + +-------- --------+ + -----+| <0.25 ?| Bacterial ? ? ?| Strongly ? ? ?| ? | ?| infection very | discouraged ? | Overruling: ? | ?| unlikely ? ? ? | ? | ? Clinically unstable ? ? ? + +-------- --------+ + ? High risk for adverse ? ? | <0.5 or drop | Bacterial ? ? ?| Discouraged ? | ? outcome ? | >80% from ? ?| infection ? ? ?| ? | ? SEE IMPORTANT NOTE ?| highest PCT ?| unlikely ? ? ? | ? | ? | level ?| ?| ? | ? + +-------- --------+ + -----+| >=0.5 ?| Bacterial ? ? ?| Encouraged ? ?| ? | ?| infection ? ? ?| ? | ? | ?| likely ? | ? | Consider treatment failure ?+ +------- ---------+ -+ if levels does not decrease | >1.0 ? | Bacterial ? ? ?| Strongly ? ? ?| appropriately ? | ?| infection very | encouraged ? ?| ? | ?| likely ? | ? | ? + +-------- --------+ + -----+ Percentage of drop of Procalcitonin calculation for Discontinuation of antibiotics in high-acuity patients with suspected or confirmed sepsis in Adults >= 18 years of age. ? Procalcitonin highest{}-Procalcitonin current{}Delta Procalcitonin = x100% ? Procalcitonin current {} IMPORTANT NOTE: Procalcitonin may be elevated without bacterial infection by physiologic stress related to trauma, gonzalez, chronic dialysis, metastatic cancer, surgery in the past seven days, malaria, some fungal infections, and some forms of vasculitis. The interpretation algorithm may not apply to patients with immunosuppression (equivalent of >10 mg of prednisone daily), HIV with CD4 cell count < 350 cells/mm3, active malignancy on systemic chemotherapy, solid organ transplant or hematopoietic stem cell transplantation, or hospital acquired pneumonia. Additionally, some clinical trials of procalcitonin have excluded patients with shock requiring vasopressor use, acute respiratory failure requiring mechanical ventilation, or those with known lung abscess/empyema. For further information please refer to:[email or web address] Lab Interpretation Abnormal (test code = 60266-6) [facility] [place]TROP[facility]UI [id number] 14:13:00 Test Item Value Reference Range Interpretation Comments TROPONIN I (test 0.189 ng/mL See_Comment H [Automated code = 8440077753) message] The system which generated this result transmitted reference range : <=0.034. The reference range was not used to interpret this result as normal/abnormal . NELI (test code = Equal or Less than NELI) 0.034 ng/ml---Normal ?Note: Cardiac troponin begins to rise 3-4 hours after the onset of ischemia. Repeat in 4-6 hours if the sample was drawn within 3-4 hours of the onset of the symptom and found normal. Between 0.035 and 0.120 ng/mL--- Borderline. Questionable myocardial injury or necrosis ? ?Note: Serial measurement may be necessary to confirm or exclude the diagnosis of myocardial injury or necrosis; Clinical correlation (symptoms, EKGs, imaging studies, and others) required; Repeat in 4-6 hours if clinically indicated. ? Equal or Higher than 0.121 ng/mL---Abnormal. Myocardial Injury or Necrosis Likely ? Biotin has been reported to cause a negative bias, interpret results relative to patient's use of biotin. ? Lab Interpretation Abnormal (test code = 73063-7) [facility] TylerN-TERMINAL [id number] 14:11:00 Test Item Value Reference Range Interpretation Comments NT-proBNP (test code 9100 pg/mL See_Comment H [Autom ated = 7181308248) message] The system which generated this result transmitted reference range : <=125. The reference range was not used to interpret this result as normal/abnormal . NELI (test code = NELI) Biotin has been reported to cause a negative bias, interpret results relative to patient's use of biotin. Lab Interpretation Abnormal (test code = 88625-6) [facility] URINARY ANTIGEN [id number] 12:13:00 Test Item Value Reference Range Interpretation Comments Legionella Urinary Negative Negative Antigen (test code = 7843901074) NELI (test code = NELI) Negative for L. pneumophilia serogroup I antigen in urine suggesting no recent or current infection. Infection due to Legionella cannot be ruled out since other serogroups and species may cause disease. Furthermore, antigens may not be present in urine during early stage of infection, or the level of antigen present in urine may be below the detection limit of the test. Lab Interpretation (test Normal code = 34846-3) [facility] TylerPNEUMOCOCCAL [id number] 12:13:00 Test Item Value Reference Range Interpretation Comments S. pneumoniae antigen (test code = Negative Negative 1061949091) Lab Interpretation (test code = Normal 57940-5) [facility] METABOLIC PANEL (NA, K, CL, CO2, GLUCOSE, BUN, CREATININE, CA)2019-12-29 11:34:00 Test Item Value Reference Range Interpretation Comments NA (test code = 134 mmol/L 135-145 L 4537672412) K (test code = 3.6 mmol/L 3.5-5 9104456240) CL (test code = 106 mmol/L 98-108 1925430717) CO2 TOTAL (test code = 22 mmol/L 23-31 L 3518931540) AGAP (test code = 2-16 8357467748) BUN (test code = 18 mg/dL 7-23 7335453545) GLUCOSE (test code = 81 mg/dL 70-110 2146598797) CREATININE (test code = 0.87 mg/dL 0.6-1.25 2233853398) CALCIUM (test code = 8.0 mg/dL 8.6-10.6 L 8408020176) eGFR Calculation mL/min/1.73m2 (Non-) (test code = 7823862533) eGFR Calculation mL/min/1.73m2 () (test code = 3651644561) NELI (test code = NELI) Association of Glomerular Filtration Rate (GFR) and Staging of Kidney Disease* + --+ --+ ------+| GFR (mL/min/1.73 m2) ?| With Kidney Damage ?| ?Without Kidney Damage+ --------+ --------+ +| ?>90 ?| ?Stage one ?| ? Normal ?+ ---+ ---+ -------+| ?60-89 ?| ?Stage two ?| ? Decreased GFR ? + --+ --+ ------+| ?30-59 ?| ?Stage three ?| ? Stage three ? + --+ --+ ------+| ?15-29 ?| ?Stage four ? | ? Stage four ?+ ---+ ---+ -------+| ?<15 (or dialysis) ? ?| ?Stage five ? | ? Stage five ?+ ---+ ---+ -------+ *Each stage assumes the associated GFR level has been in effect for at least three months. ?Stages 1 to 5, with or without kidney disease, indicate chronic kidney disease. Notes: Determination of stages one and two (with eGFR >59mL/min/1.73 m2) requires estimation of kidney damage for at least three months as defined by structural or functional abnormalities of the kidney, manifested by either:Pathological abnormalities or Markers of kidney damage (including abnormalities in the composition of the blood or urine or abnormalities in imaging tests). Lab Interpretation Abnormal (test code = 01905-8) [facility] with [id number] 11:11:00 Test Item Value Reference Range Interpretation Comments WBC (test code = See_Comment H [Automated 1090-2) message] The sy stem which generated this result transmitted reference range : 4.20 - 10.70 10*3/?L. The reference range was not used to interpret this result as normal/abnormal . RBC (test code = See_Comment L [Automated 959-8) message] The sy stem which generated this result transmitted reference range : 4.26 - 5.52 10*6/?L. The reference range was not used to interpret this result as normal/abnormal . HGB (test code = 11.8 g/dL 12.2-16.4 L 718-7) HCT (test code = 36.6 % 38.4-49.3 L 4544-3) MCV (test code = 89.5 fL 81.7-95.6 787-2) MCH (test code = 28.9 pg 26.1-32.7 785-6) MCHC (test code = 32.2 g/dL 31.2-35 786-4) RDW-SD (test code = 64.4 fL 38.5-51.6 H 19107-1) RDW-CV (test code = 19.7 % 12.1-15.4 H 788-0) PLT (test code = See_Comment [Automated 777-3) message] The sy stem which generated this result transmitted reference range : 150 - 328 10*3/ ?L. The reference r minerva was not used to interpret this result as normal/abnormal . MPV (test code = 12.3 fL 9.8-13 70600-6) NRBC/100 WBC (test See_Comment [Automat ed code = 4301922588) message] The system which generated this result transmitted reference range : 0.0 - 10.0 /100 WBCs. The refer ence range was not u sed to interpret th is result as normal/abnormal . NRBC x10^3 (test code <0.01 See_Comment [Auto mated = 3036749053) message] The s ystem which generated this result transmitted reference range : 10*3/?L. The reference range was not used to interpret this result as normal/abnormal . GRAN MAT (NEUT) % 71.4 % (test code = 770-8) IMM GRAN % (test code 0.30 % = 0250924411) LYMPH % (test code = 17.5 % 736-9) MONO % (test code = 9.7 % 5905-5) EOS % (test code = 0.5 % 713-8) BASO % (test code = 0.6 % 706-2) GRAN MAT x10^3(ANC) 7.66 10*3/uL 1.99-6.95 H (test code = 9531861866) IMM GRAN x10^3 (test 0.03 10*3/uL 0-0.06 code = 4957042056) LYMPH x10^3 (test code 1.88 10*3/uL 1.09-3.23 = 731-0) MONO x10^3 (test code 1.04 10*3/uL 0.36-1.02 H = 742-7) EOS x10^3 (test code = 0.05 10*3/uL 0.06-0.53 L 711-2) BASO x10^3 (test code 0.06 10*3/uL 0.01-0.09 = 704-7) Lab Interpretation Abnormal (test code = 81942-8) [id number] Test Item Value Reference Range Interpretation Comments TROPONIN I (test 0.243 ng/mL See_Comment H [Automated code = 1871986992) message] The system which generated this result transmitted reference range : <=0.034. The reference range was not used to interpret this result as normal/abnormal . NELI (test code = Equal or Less than NELI) 0.034 ng/ml---Normal ?Note: Cardiac troponin begins to rise 3-4 hours after the onset of ischemia. Repeat in 4-6 hours if the sample was drawn within 3-4 hours of the onset of the symptom and found normal. Between 0.035 and 0.120 ng/mL--- Borderline. Questionable myocardial injury or necrosis ? ?Note: Serial measurement may be necessary to confirm or exclude the diagnosis of myocardial injury or necrosis; Clinical correlation (symptoms, EKGs, imaging studies, and others) required; Repeat in 4-6 hours if clinically indicated. ? Equal or Higher than 0.121 ng/mL---Abnormal. Myocardial Injury or Necrosis Likely ? Biotin has been reported to cause a negative bias, interpret results relative to patient's use of biotin. ? Lab Interpretation Abnormal (test code = 55865-8) [facility] [id number] 03:38:21 1. ?No evidence of pulmonary embolism. 2. ?Right lower lobe consolidation likely represents pneumonia. 3. ?Moderate cardiomegaly with LAD coronary stent. 4. ?Groundglass opacities in the left lateral lingula and may representfoci of infection. Preliminary Report Dictated by Resident: Juan Pablo Reynoso ?MD. Griselda, have reviewed this study and agree withthe above report.PROCEDURE: CT ANGIO CHEST WITH CONTRAST - PE PROTOCOL CLINICAL INDICATION: PE suspected, high pretest prob ? COMPARISON: Chest radiograph 12/28/2019. DOSE: 68 mGy-cm TECHNIQUE AND FINDINGS: A helical CT scan was performed and reconstructedusing 1.25 mm slice thickness from the lung bases through the apices afterthe uncomplicated administration of 100 cc of intravenous Omnipaquecontrast. Sagittal and coronal reconstructions, and axial maximum intensityprojections were generated and reviewed to further define anatomy andpossible pathology. (DFOV = 34.9 cm) FINDINGS: PULMONARY ARTERIES: Technically adequate enhancement of the pulmonaryarteries reveals no pulmonary embolism. LINES AND TUBES: None LOWER NECK/THYROID: The visualized portions of thyroid gland are normal. LUNGS: Right lower lobe consolidation likely re presents pneumonia. Agroundglass opacity in the left lateral lingula (5:212) likely represents afocus of infection. PLEURA: No pleural effusion or pneumothorax. CENTRAL AIRWAY: No bronchiectasis, mucusplugging, or bronchial wallthickening. MEDIASTINUM: No mediastinal lymphadenopathy. Moderate cardiome tressa. Acoronary stent is visualized in the left anterior descending artery.. Nopericardial effusion. AORTA AND GREAT VESSELS: The visualized portions of the aorta are normal incaliber. BONES AND SOFT TISSUES: No suspicious lytic or blastic skeletal lesions. VISUALIZED UPPER ABDOMEN: Unremarkable. [facility], Radiant Results Inft User - 12/28/2019 10:39 PM CDTPROCEDURE: CT ANGIO CHEST WITH CONTRAST - PE PROTOCOLCLINICAL INDICATION: PE suspected, high pretest prob COMPARISON: Chest radiograph 12/28/2019.DOSE: 68 mGy-cmTECHNIQUE AND FINDINGS: A helical CT scan was performed and reconstructedusing 1.25 mm slice thickness from the lung bases through the apices afterthe uncomplicated administration of 100 cc of intravenous Omnipaquecontrast. Sagittal and coronal reconstructions, and axial maximum intensityprojections were generated and reviewed to further define anatomy andpossible pathology. (DFOV = 34.9cm)FINDINGS: PULMONARY ARTERIES: Technically adequate enhancement of the pulmonaryarteries reveals no pulmonary embolism.LINES AND TUBES: NoneLOWER NECK/THYROID: The visualized portions of thyroid gland are normal.LUNGS: Right lower lobe consolidation likely represents pneumonia. Agroundglass opacity in the left lateral lingula (5:212) likely represents afocus of infection.PLEURA: No pleural effusionor pneumothorax.CENTRAL AIRWAY: No bronchiectasis, mucus plugging, or bronchial wallthickening.MEDIASTINUM: No mediastinal lymphadenopathy. Moderate cardiomegaly. Acoronary stent is visualized in the left anterior descending artery.. Nopericardial effusion. AORTA AND GREAT VESSELS: The visualized porti ons of the aorta are normal incaliber.BONES AND SOFT TISSUES: No suspicious lytic or blastic skeletal lesions.VISUALIZED UPPER ABDOMEN: Unremarkable.IMPRESSION1. No evidence of pulmonary embolism.2. Right lower lobe consolidation likely represents pneumonia.3. Moderate cardiomegaly with LAD coronary stent.4. Groundglass opacities in the left lateral lingula and may representfoci of infection.Preliminary Report Dictated by Resident: Viktor Eaton, Juan Pablo Villalobos MD., have reviewed this study and agree withthe above report.[facility] (ID NOW RAPID TESTING) 2019-12-29 02:53:00 Test Item Value Reference Range Interpretation Comments SARS-CoV-2 Rapid ID NOW Not Detected Not Detected (test code = 51766-5) NELI (test code = NELI) ID NOW COVID-19 Assay is an isothermal nucleic acid amplification test intended for the qualitative detection of nucleic acid from SARS-CoV-2 viral RNA in nasopharyngeal ([employer]) specimens. It is used under Emergency Use Authorization (EUA) by FDA. The limit of detection (LOD) of the assay is 125 Genome Equivalents/mL. A positive result is indicative of the presence of SARS-CoV-2 RNA. ?Clinical correlation with patient history and other diagnostic information is necessary to determine patient infection status. A negative (Not Detected) result does not preclude SARS-CoV-2 infection. In patients with clinical symptoms and other tests that are consistent with SARS-CoV-2 infection, negative results should be treated as presumptive negative and a new specimen should be tested with alternative PCR molecular test. Invalid: Please collect a new specimen for repeat patient testing if clinically indicated. Lab Interpretation Normal (test code = 80966-7) [facility] TylerTRPERCYNIN [id number] 01:27:00 Test Item Value Reference Range Interpretation Comments TROPONIN I (test 0.218 ng/mL See_Comment H [Automated code = 3586578398) message] The system which generated this result transmitted reference range : <=0.034. The reference range was not used to interpret this result as normal/abnormal . NELI (test code = Equal or Less than NELI) 0.034 ng/ml---Normal ?Note: Cardiac troponin begins to rise 3-4 hours after the onset of ischemia. Repeat in 4-6 hours if the sample was drawn within 3-4 hours of the onset of the symptom and found normal. Between 0.035 and 0.120 ng/mL--- Borderline. Questionable myocardial injury or necrosis ? ?Note: Serial measurement may be necessary to confirm or exclude the diagnosis of myocardial injury or necrosis; Clinical correlation (symptoms, EKGs, imaging studies, and others) required; Repeat in 4-6 hours if clinically indicated. ? Equal or Higher than 0.121 ng/mL---Abnormal. Myocardial Injury or Necrosis Likely ? Biotin has been reported to cause a negative bias, interpret results relative to patient's use of biotin. ? Lab Interpretation Abnormal (test code = 87408-6) [facility] METABOLIC PANEL (66244)2019-12-29 01:27:00 Test Item Value Reference Range Interpretation Comments NA (test code = 134 mmol/L 135-145 L 5180346963) K (test code = 3.7 mmol/L 3.5-5 1818466644) CL (test code = 106 mmol/L 98-108 1265854219) CO2 TOTAL (test code = 21 mmol/L 23-31 L 1714389451) AGAP (test code = 2-16 7531832503) BUN (test code = 18 mg/dL 7-23 2411942380) GLUCOSE (test code = 115 mg/dL 70-110 H 1189161908) CREATININE (test code = 0.90 mg/dL 0.6-1.25 0481761549) TOTAL BILI (test code = 3.6 mg/dL 0.1-1.1 H 1060012469) CALCIUM (test code = 8.7 mg/dL 8.6-10.6 3209821890) T PROTEIN (test code = 6.8 g/dL 6.3-8.2 8739106331) ALBUMIN (test code = 3.6 g/dL 3.5-5 4507797456) ALK PHOS (test code = 125 U/L 34-122 H 9826612667) ALTv (test code = 19 U/L 5-50 1742-6) AST(SGOT) (test code = 30 U/L 13-40 4270173525) eGFR Calculation mL/min/1.73m2 (Non-) (test code = 2853152959) eGFR Calculation mL/min/1.73m2 () (test code = 2562594873) NELI (test code = NELI) Association of Glomerular Filtration Rate (GFR) and Staging of Kidney Disease* + --+ --+ ------+| GFR (mL/min/1.73 m2) ?| With Kidney Damage ?| ?Without Kidney Damage+ --------+ --------+ +| ?>90 ?| ?Stage one ?| ? Normal ?+ ---+ ---+ -------+| ?60-89 ?| ?Stage two ?| ? Decreased GFR ? + --+ --+ ------+| ?30-59 ?| ?Stage three ?| ? Stage three ? + --+ --+ ------+| ?15-29 ?| ?Stage four ? | ? Stage four ?+ ---+ ---+ -------+| ?<15 (or dialysis) ? ?| ?Stage five ? | ? Stage five ?+ ---+ ---+ -------+ *Each stage assumes the associated GFR level has been in effect for at least three months. ?Stages 1 to 5, with or without kidney disease, indicate chronic kidney disease. Notes: Determination of stages one and two (with eGFR >59mL/min/1.73 m2) requires estimation of kidney damage for at least three months as defined by structural or functional abnormalities of the kidney, manifested by either:Pathological abnormalities or Markers of kidney damage (including abnormalities in the composition of the blood or urine or abnormalities in imaging tests). Lab Interpretation Abnormal (test code = 71232-8) [facility], [id number] 01:27:00 Test Item Value Reference Range Interpretation Comments LIPASE (test code = 5744761411) 53 U/L 0-220 Lab Interpretation (test code = Normal 28732-9) [facility] Tyler[facility]-TERMINAL [id number] 01:27:00 Test Item Value Reference Range Interpretation Comments NT-proBNP (test code 9380 pg/mL See_Comment H [Autom ated = [id number]) message] The system which generated this result transmitted reference range : <=125. The reference range was not used to interpret this result as normal/abnormal . NELI (test code = NELI) Biotin has been reported to cause a negative bias, interpret results relative to patient's use of biotin. Lab Interpretation Abnormal (test code = 47321-4) [facility] TylerPROTHROMBIN TIME / [id number] 01:19:00 Test Item Value Reference Range Interpretation Comments PROTIME PATIENT (test See_Comment H [Auto mated message] code = 5964-2) The system wh ich generated this result transmitted ref erence range: 12.0 - 1 4.7 Seconds. The reference range was not used to int erpret this result as normal/abnormal . INR (test code = 6301-6) Nor mal INR <1.1; Warfarin Therap eutic range 2.0 to 3. 0 or 2.5 to 3.5, dep ending upon the indica tions. Lab Interpretation (test Abnormal code = 24709-0) [facility] [id number] 01:17:00 Test Item Value Reference Range Interpretation Comments APTT Patient (test See_Comment [Automat ed code = 3173-2) message] The system which generated this result transmitted reference range : 23 - 38 Seconds . The reference range was not used to interpr et this result as normal/abnormal . NELI (test code = NELI) The [facility] patient population mean normal value for aPTT is 30 seconds. Lab Interpretation Normal (test code = 17404-5) [facility] WITH [id number] 01:03:00 Test Item Value Reference Range Interpretation Comments WBC (test code = See_Comment H [Automated 6690-2) message] The sy stem which generated this result transmitted reference range : 4.20 - 10.70 10*3/?L. The reference range was not used to interpret this result as normal/abnormal . RBC (test code = See_Comment [Automated 789-8) message] The sy stem which generated this result transmitted reference range : 4.26 - 5.52 10*6/?L. The reference range was not used to interpret this result as normal/abnormal . HGB (test code = 13.1 g/dL 12.2-16.4 718-7) HCT (test code = 41.3 % 38.4-49.3 4544-3) MCV (test code = 91.4 fL 81.7-95.6 787-2) MCH (test code = 29.0 pg 26.1-32.7 785-6) MCHC (test code = 31.7 g/dL 31.2-35 786-4) RDW-SD (test code = 66.4 fL 38.5-51.6 H 80045-5) RDW-CV (test code = 19.7 % 12.1-15.4 H 788-0) PLT (test code = See_Comment [Automated 777-3) message] The sy stem which generated this result transmitted reference range : 150 - 328 10*3/ ?L. The reference r minerva was not used to interpret this result as normal/abnormal . MPV (test code = 11.8 fL 9.8-13 49087-4) NRBC/100 WBC (test See_Comment [Automat ed code = [id number]) message] The system which generated this result transmitted reference range : 0.0 - 10.0 /100 WBCs. The refer ence range was not u sed to interpret th is result as normal/abnormal . NRBC x10^3 (test code <0.01 See_Comment [Auto mated = [id number]) message] The s ystem which generated this result transmitted reference range : 10*3/?L. The reference range was not used to interpret this result as normal/abnormal . GRAN MAT (NEUT) % 78.0 % (test code = 770-8) IMM GRAN % (test code 0.40 % = [id number]) LYMPH % (test code = 11.6 % 736-9) MONO % (test code = 9.3 % 5905-5) EOS % (test code = 0.2 % 713-8) BASO % (test code = 0.5 % 706-2) GRAN MAT x10^3(ANC) 8.99 10*3/uL 1.99-6.95 H (test code = 4744829398) IMM GRAN x10^3 (test 0.05 10*3/uL 0-0.06 code = 9665307484) LYMPH x10^3 (test code 1.34 10*3/uL 1.09-3.23 = 731-0) MONO x10^3 (test code 1.07 10*3/uL 0.36-1.02 H = 742-7) EOS x10^3 (test code = <0.03 0.06-0.53 L 711-2) BASO x10^3 (test code 0.06 10*3/uL 0.01-0.09 = 704-7) Lab Interpretation Abnormal (test code = 79423-1) [facility] [place]XR CHEST 1 [id number] 00:45:24 No acute intrathoracic abnormality.PROCEDURE: XR CHEST 1 VW CLINICAL INDICATION: cough COMPARISON:10/14/2019 FINDINGS: The lungs are clear. No pleural effusion or pneumothorax is seen. The cardiomediastinal silhouette is normal. No acute bony abnormality. [facility], Radiant Results Inft User - 12/28/2019 7:46 PM CDTPROCEDURE: XR CHEST 1 VWCLINICAL INDICATION: cough COMPARISON: 10/14/2019FINDINGS:The lungs are clear. No pleural effusion or pneumothorax is seen. The cardiomediastinal silhouette is normal. No acute bony abnormality.IMPRESSIONNo acute intrathoracic abnormality.[facility] TylerWhole blood cardiac troponin I measurement (mass/volume)2019-11-12 12:57:00 Test Item Value Reference Range Interpretation Comments Bedside Troponin I (test code = 0.01 ng/mL 0.00-0.06 94166-0) [facility] ([facility]/volume) 2019-11-12 12:57:00 Test Item Value Reference Range Interpretation Comments Bedside Troponin I (test code = 0.01 ng/mL 97518-7) [facility]Urindo[facility] hospitalis [facility] [id number] 12:45:00 Test Item Value Reference Range Interpretation Comments Urine Source (test code = 59264-4) URINE [facility] HealthColor of Urine by [id number] 12:45:00 Test Item Value Reference Range Interpretation Comments Urine Color (test code = 16925-6) Yellow Yel-Sabi * [facility] HealthUrine clarity sivpkffrwfbyb4828-42-00 12:45:00 Test Item Value Reference Range Interpretation Comments Urine Appearance (test code = 73233-6) Clear Clear * [facility] HealthUrine pH measurement by automated test [id number] 12:45:00 Test Item Value Reference Range Interpretation Comments Urine pH (test code = 23274-3) 6.0 5.0-8.0 [facility] HealthSpecific gravity of Urine by Automated test [id number] 12:45:00 Test Item Value Reference Range Interpretation Comments Urine Specific [place] (test code = 1.023 1.005-1.030 86917-2) [facility] HealthUrine protein measurement by automated test strip (mass/volume) 2019-11-12 12:45:00 Test Item Value Reference Range Interpretation Comments Urine Protein (test code = 48294-4) 50 mg/dL Negative * [facility] HealthUrine glucose measurement by automated test strip (mass/volume) 2019-11-12 12:45:00 Test Item Value Reference Range Interpretation Comments Urine Glucose (UA) (test code Negative mg/dL Negative * = 06637-6) [facility] HealthUrine ketones measurement by automated test strip (mass/volume) 2019-11-12 12:45:00 Test Item Value Reference Range Interpretation Comments Urine Ketones (test code = Negative mg/dL Negative * 01716-7) [facility] HealthUrine erythrocytes count by automated test strip (number/volume) 2019-11-12 12:45:00 Test Item Value Reference Range Interpretation Comments Urine Occult Blood (test code = 1+ Negative * 74129-7) [facility] HealthUrine nitrite detection by automated test [id number] 12:45:00 Test Item Value Reference Range Interpretation Comments Urine Nitrite (test code = 25943-6) Negative Negative [facility] HealthUrine total bilirubin measurement by automated test strip (mass/volume)2019-11-12 12:45:00 Test Item Value Reference Range Interpretation Comments Urine Bilirubin (test code = Negative mg/dL Negative 65970-9) [facility] HealthUrine urobilinogen measurement by automated test strip (mass/volume)2019-11-12 12:45:00 Test Item Value Reference Range Interpretation Comments Urine Urobilinogen (test code = 3.0 mg/dL 0.0-1.0 31094-2) [facility] HealthUrine leukocytes count by automated test strip (number/volume) 2019-11-12 12:45:00 Test Item Value Reference Range Interpretation Comments Urine Leukocyte Esterase Negative {Gabbie}/uL Negative (test code = 00338-1) [facility] HealthMicroscopic examination of [id number] 12:45:00 Test Item Value Reference Range Interpretation Comments Microscopic Urinalysis (T) (test code = ----- 10934-2) [facility] HealthUrine sediment erythrocyte count by microscopy (number/high power field)2019-11-12 12:45:00 Test Item Value Reference Range Interpretation Comments Urine RBC (test code = 82101-4) 11-30 /[HPF] 0-2 [facility] HealthUrine sediment leukocyte count by microscopy (number/high power field)2019-11-12 12:45:00 Test Item Value Reference Range Interpretation Comments Urine WBC (test code = 5821-4) 6-20 /[HPF] 0-5 [facility] HealthUrine sediment epithelial cell count by microscopy (number/high power field)2019-11-12 12:45:00 Test Item Value Reference Range Interpretation Comments Urine Epithelial Cells (test None Seen /[HPF] Few code = 5787-7) [facility] HealthUrine sediment crystal count by microscopy (number/high power field)2019-11-12 12:45:00 Test Item Value Reference Range Interpretation Comments Urine Crystals (test code = None Seen /[HPF] None * 61954-9) [facility] HealthUrine sediment bacteria count by microscopy (number/high power field)2019-11-12 12:45:00 Test Item Value Reference Range Interpretation Comments Urine Bacteria (test code = None Seen /[HPF] None 5769-5) [facility] HealthUrine sediment casts count by microscopy (number/low power field) 2019-11-12 12:45:00 Test Item Value Reference Range Interpretation Comments Urine Casts (test code = Present /[LPF] None * 9842-6) [facility] HealthUrine sediment hyaline cast count by microscopy (number/low power field)2019-11-12 12:45:00 Test Item Value Reference Range Interpretation Comments Urine Hyaline Casts (test code = 2-5 /[LPF] 0-1 5796-8) [facility] HealthYeast detection in urine sediment by light spetumbdmo9370-54-02 12:45:00 Test Item Value Reference Range Interpretation Comments Urine Yeast (test code = None Seen /[HPF] None 08430-1) [facility]Service comment 12:45:00 Test Item Value Reference Range Interpretation Comments Urinalysis Comment (test * See_Comment [A utomated message] The code = 8262-8) system which generated this result tra nsmitted reference range : *. The reference range was not used to interpr et this result as normal/abnormal . [facility] comment 12:45:00 Test Item Value Reference Range Interpretation Comments Urine Culture Indicated (test code To follow = 8264-4) [facility] HealthUrinalysis specimen collection [id number] 12:45:00 Test Item Value Reference Range Interpretation Comments Urine Source (test code = 15808-2) [facility] by Zzna3521-91-65 12:45:00 Test Item Value Reference Range Interpretation Comments Urine Color (test code = 54504-8) Yellow [facility]Urine clarity ccelmmahitqai6578-29-77 12:45:00 Test Item Value Reference Range Interpretation Comments Urine Appearance (test code = 86847-6) Clear [facility] ElizabethUrine pH measurement by automated test [id number] 12:45:00 Test Item Value Reference Range Interpretation Comments Urine pH (test code = 38821-3) 6.[address] ElizabethSpecific gravity of Urine by Automated test strip 2019-11-12 12:45:00 Test Item Value Reference Range Interpretation Comments Urine Specific [place] (test code = 1.023 07884-6) JAVID Farah protein measurement by automated test strip (mass/volume)2019-11-12 12:45:00 Test Item Value Reference Range Interpretation Comments Urine Protein (test code = 02475-2) 50 mg/dL AJVID BaileyUrine glucose measurement by automated test strip (mass/volume)2019-11-12 12:45:00 Test Item Value Reference Range Interpretation Comments Urine Glucose (UA) (test code Negative mg/dL = 59629-2) [facility]ones [facility] by automated test strip (mass/volume)2019-11-12 12:45:00 Test Item Value Reference Range Interpretation Comments Urine Ketones (test code = Negative mg/dL 40900-6) JAVID Farah erythrocytes count by automated test strip (number/volume)2019-11-12 12:45:00 Test Item Value Reference Range Interpretation Comments Urine Occult Blood (test code = 1+ 35490-5) JAVID RiddleUrine nitrite detection by automated test [id number] 12:45:00 Test Item Value Reference Range Interpretation Comments Urine Nitrite (test code = 21228-9) Negative [facility] total bilirubin measurement by automated test strip (mass/volume)2019-11-12 12:45:00 Test Item Value Reference Range Interpretation Comments Urine Bilirubin (test code = Negative mg/dL 45958-5) [facility] urobilinogen measurement by automated test strip (mass/volume)2019-11-12 12:45:00 Test Item Value Reference Range Interpretation Comments Urine Urobilinogen (test code = 3.0 mg/dL 05388-7) JAVID BaileyUrine leukocytes count by automated test strip (number/volume)2019-11-12 12:45:00 Test Item Value Reference Range Interpretation Comments Urine Leukocyte Esterase Negative {Gabbie}/uL (test code = 11718-6) JAVID StDerrell CamiloMicroscopic examination of [id number] 12:45:00 Test Item Value Reference Range Interpretation Comments Microscopic Urinalysis (T) (test code = ----- 92575-0) [facility] erythrocyte count by microscopy (number/high power field)2019-11-12 12:45:00 Test Item Value Reference Range Interpretation Comments Urine RBC (test code = 84740-8) 11-30 /[HPF] [facility] EliliamUrine sediment leukocyte count by microscopy (number/high power field)2019-11-12 12:45:00 Test Item Value Reference Range Interpretation Comments Urine WBC (test code = 5821-4) 6-20 /[HPF] [facility] ElizabejeremyUrine sediment epithelial cell count by microscopy (number/high power field)2019-11-12 12:45:00 Test Item Value Reference Range Interpretation Comments Urine Epithelial Cells (test None Seen /[HPF] code = 5787-7) [facility] EliliamUrine sediment crystal count by microscopy (number/high power field)2019-11-12 12:45:00 Test Item Value Reference Range Interpretation Comments Urine Crystals (test code = None Seen /[HPF] 77085-0) [facility] EliliamUrine sediment bacteria count by microscopy (number/high power field)2019-11-12 12:45:00 Test Item Value Reference Range Interpretation Comments Urine Bacteria (test code = None Seen /[HPF] 5769-5) [facility] EliliamUrine sediment casts count by microscopy (number/low power field)2019-11-12 12:45:00 Test Item Value Reference Range Interpretation Comments Urine Casts (test code = Present /[LPF] 9842-6) [facility] ElizabarrettUrine sediment hyaline cast count by microscopy (number/low power field)2019-11-12 12:45:00 Test Item Value Reference Range Interpretation Comments Urine Hyaline Casts (test code = 2-5 /[LPF] 5796-8) [facility] ElifidelbethYeast detection in urine sediment by light microscopy 2019-11-12 12:45:00 Test Item Value Reference Range Interpretation Comments Urine Yeast (test code = None Seen /[HPF] 33352-4) [facility] comment 12:45:00 Test Item Value Reference Range Interpretation Comments Urinalysis Comment (test code = 8262-8) * [facility] comment 12:45:00 Test Item Value Reference Range Interpretation Comments Urine Culture Indicated (test code To follow = 8264-4) [facility] Centerole blood natriuretic peptide B measurement (mass/volume)2019-11-12 12:43:00 Test Item Value Reference Range Interpretation Comments Bedside B-Type Natriuretic Peptide 3006 pg/mL 0-99 (test code = 95946-5) [facility] blood natriuretic peptide B measurement (mass/volume) 2019-11-12 12:43:00 Test Item Value Reference Range Interpretation Comments Bedside B-Type Natriuretic Peptide 3006 pg/mL (test code = 90324-8) [facility]abeProv[facility] Hospitalerum or plasma protein measurement (mass/volume) 2019-11-12 12:40:00 Test Item Value Reference Range Interpretation Comments Total Protein (test code = 2885-2) 6.8 g/dL 6.4-8.3 [facility] HealthSerum or plasma albumin measurement (mass/volume)2019-11-12 12:40:00 Test Item Value Reference Range Interpretation Comments Albumin (test code = 1751-7) 3.7 g/dL 3.5-5.0 [facility] HealthSerum or plasma alkaline phosphatase measurement (enzymatic activity/volume)2019-11-12 12:40:00 Test Item Value Reference Range Interpretation Comments Alkaline Phosphatase (test code = 190 U/L 40-150 6768-6) [facility] HealthAutomated blood leukocyte count (number/volume)2019-11-12 12:40:00 Test Item Value Reference Range Interpretation Comments White Blood Count (test code = 8.3 10*3/uL 4.5-11.5 6690-2) [facility] HealthBlood erythrocytes automated count (number/volume)2019-11-12 12:40:00 Test Item Value Reference Range Interpretation Comments Red Blood Count (test code = 4.34 10*6/uL 4.4-6.2 789-8) [facility] HealthBlood hemoglobin measurement (mass/volume)2019-11-12 12:40:00 Test Item Value Reference Range Interpretation Comments Hemoglobin (test code = 718-7) 11.6 g/dL 13.0-17.5 [facility] HealthAutomated blood hematocrit (volume fraction)2019-11-12 12:40:00 Test Item Value Reference Range Interpretation Comments Hematocrit (test code = 4544-3) 39.1 % 39.0-52.5 [facility] HealthAutomated erythrocyte mean corpuscular volume (MCV) measurement 2019-11-12 12:40:00 Test Item Value Reference Range Interpretation Comments Mean Corpuscular Volume (test code = 90 fL 80-94 787-2) [facility] HealthAutomated erythrocyte mean corpuscular hemoglobin (mass per erythrocyte)2019-11-12 12:40:00 Test Item Value Reference Range Interpretation Comments Mean Corpuscular Hemoglobin (test 26.7 pg 27.0-33.0 code = 785-6) [facility] HealthAutomated erythrocyte mean corpuscular hemoglobin concentration measurement (mass/dli6249-90-61 12:40:00 Test Item Value Reference Range Interpretation Comments Mean Corpuscular Hemoglobin Concent 29.7 g/dL 33.0-37.0 (test code = 786-4) [facility] HealthAutomated erythrocyte distribution width qogzf1938-69-20 12:40:00 Test Item Value Reference Range Interpretation Comments Red Cell Distribution Width (test code 22.7 % 10.7-14.5 = 788-0) [facility] HealthAutomated blood platelet count (count/volume)2019-11-12 12:40:00 Test Item Value Reference Range Interpretation Comments Platelet Count (test code = 237 10*3/uL 150-450 777-3) [facility] HealthAutomated blood platelet mean volume jyafwxhblme5453-13-34 12:40:00 Test Item Value Reference Range Interpretation Comments Mean Platelet Volume (test code = 11.7 5.7-10.7 50721-9) [facility] HealthAutomated blood neutrophil count as percentage of total jnviwuqpse5844-63-69 12:40:00 Test Item Value Reference Range Interpretation Comments Neutrophils (%) (Auto) (test code = 67 % 47-75 770-8) [facility] HealthAutomated blood immature granulocyte count as percentage of total ejyycuoloj7811-03-75 12:40:00 Test Item Value Reference Range Interpretation Comments Immature Granulocyte % (Auto) (test 0 % 0-0 code = 99266-9) [facility] HealthAutomated blood lymphocyte count as percentage of total nsbnuqsqpe5578-49-68 12:40:00 Test Item Value Reference Range Interpretation Comments Lymphocytes (%) (Auto) (test code = 25 % 25-44 736-9) [facility] HealthAutomated blood monocyte count as percentage of total leukocytes 2019-11-12 12:40:00 Test Item Value Reference Range Interpretation Comments Monocytes (%) (Auto) (test code = 5 % 3-10 5905-5) [facility] HealthAutomated blood eosinophil count as percentage of total wbysahivuh3988-34-42 12:40:00 Test Item Value Reference Range Interpretation Comments Eosinophils (%) (Auto) (test code = 1 % 0-7 713-8) [facility] HealthAutomated blood basophil count as percentage of total leukocytes 2019-11-12 12:40:00 Test Item Value Reference Range Interpretation Comments Basophils (%) (Auto) (test code = 1 % 0-1 706-2) [facility] HealthAutomated blood nucleated erythrocyte count as percentage of total ywkpkqhwsp1072-27-78 12:40:00 Test Item Value Reference Range Interpretation Comments Nucleated Red Blood Cells % (test code 0.0 % 0-0.2 = 44577-2) [facility] HealthAutomated blood neutrophil count (number/volume)2019-11-12 12:40:00 Test Item Value Reference Range Interpretation Comments Neutrophils # (Auto) (test code = 5.6 10*3/uL 1.3-6.7 751-8) [facility] HealthAutomated blood immature granulocyte count as percentage of total olnrzhvxyr7613-75-82 12:40:00 Test Item Value Reference Range Interpretation Comments Immature Granulocyte # (Auto) 0.0 10*3/uL 0.0-0.0 (test code = 35795-2) [facility] HealthAutomated blood lymphocyte count (number/volume)2019-11-12 12:40:00 Test Item Value Reference Range Interpretation Comments Lymphocytes # (Auto) (test code = 2.1 10*3/uL 1.4-4.1 731-0) [facility] HealthBlood monocytes automated count (number/volume)2019-11-12 12:40:00 Test Item Value Reference Range Interpretation Comments Monocytes # (Auto) (test code = 0.4 10*3/uL 0-1.3 742-7) [facility] HealthAutomated blood eosinophil husud2509-78-25 12:40:00 Test Item Value Reference Range Interpretation Comments Eosinophils # (Auto) (test code = 0.1 10*3/uL 0-0.8 711-2) [facility] HealthAutomated blood basophil count (number/volume)2019-11-12 12:40:00 Test Item Value Reference Range Interpretation Comments Basophils # (Auto) (test code = 0.1 10*3/uL 0-0.1 704-7) [facility] HealthAutomated blood nucleated erythrocyte count (count/volume) 2019-11-12 12:40:00 Test Item Value Reference Range Interpretation Comments Nucleated Red Blood Cells # 0.00 10*3/uL 0-0.01 (test code = 771-6) [facility]Service comment [id number] 12:40:00 Test Item Value Reference Range Interpretation Comments Manual Differential (test code Scan RBC Morph = 8265-1) [facility] HealthWhole blood hypochromia detection by light cmzlqqpdwb4549-51-45 12:40:00 Test Item Value Reference Range Interpretation Comments Hypochromasia (test code = 728-6) 1+ [facility] HealthCrenated erythrocyte detection by light djxhacnmhf4805-65-63 12:40:00 Test Item Value Reference Range Interpretation Comments Rosalia Cells/Echinocytes (test code = 1+ 7790-9) [facility] HealthBlood ovalocytes detection by light urihxyzcus1008-43-14 12:40:00 Test Item Value Reference Range Interpretation Comments Ovalocytes (test code = 774-0) 1+ [facility] HealthSerum or plasma sodium measurement (moles/volume)2019-11-12 12:40:00 Test Item Value Reference Range Interpretation Comments Sodium Level (test code = 2951-2) 140 mmol/L 136-145 [facility] HealthSerum or plasma potassium measurement (moles/volume)2019-11-12 12:40:00 Test Item Value Reference Range Interpretation Comments Potassium Level (test code = 4.2 mmol/L 3.5-5.1 2823-3) [facility] HealthSerum or plasma chloride measurement (moles/volume)2019-11-12 12:40:00 Test Item Value Reference Range Interpretation Comments Chloride Level (test code = 112 mmol/L 98-107 2075-0) [facility] HealthSerum or plasma total carbon dioxide measurement (moles/volume) 2019-11-12 12:40:00 Test Item Value Reference Range Interpretation Comments Carbon Dioxide Level (test code = 21 mmol/L -2027-) [facility] HealthSerum or plasma anion gap determination (moles/volume)2019-11-12 12:40:00 Test Item Value Reference Range Interpretation Comments Anion Gap (test code = 43143-6) 11 -18 [facility] HealthSerum or plasma urea nitrogen measurement (mass/volume)2019-11-12 12:40:00 Test Item Value Reference Range Interpretation Comments Blood Urea Nitrogen (test code = 17 mg/dL 12-29 3094-0) [facility] HealthSerum or plasma creatinine measurement (mass/volume)2019-11-12 12:40:00 Test Item Value Reference Range Interpretation Comments Creatinine (test code = 2160-0) 0.9 mg/dL 0.7-1.3 [facility] HealthGFR estimate [id number] 12:40:00 Test Item Value Reference Range Interpretation Comments Estimat Glomerular Filtration Rate 94 67-119 (test code = 13648-6) [facility] HealthSerum or plasma glucose measurement (mass/volume)2019-11-12 12:40:00 Test Item Value Reference Range Interpretation Comments Glucose Level (test code = 2345-7) 89 mg/dL 60-100 [facility] plasma calcium measurement (mass/volume)2019-11-12 12:40:00 Test Item Value Reference Range Interpretation Comments Calcium Level (test code = 14221-9) 9.0 mg/dL 8.4-10.2 [facility] or plasma total bilirubin measurement (mass/volume) 2019-11-12 12:40:00 Test Item Value Reference Range Interpretation Comments Total Bilirubin (test code = 1.9 mg/dL 0.2-1.2 1974-) [facility] or plasma aspartate aminotransferase measurement (enzymatic activity/volume)2019-11-12 12:40:00 Test Item Value Reference Range Interpretation Comments Aspartate Amino Transf (AST/SGOT) 23 U/L 5-34 (test code = 1920-8) [facility] or plasma alanine aminotransferase measurement (enzymatic activity/volume)2019-11-12 12:40:00 Test Item Value Reference Range Interpretation Comments Alanine Aminotransferase (ALT/SGPT) 22 U/L 0-55 (test code = 1742-6) [facility] HealthAutomated blood leukocyte count (number/volume)2019-11-12 12:40:00 Test Item Value Reference Range Interpretation Comments White Blood Count (test code = 8.3 10*3/uL 6690-2) [facility] automated count (number/volume) 2019-11-12 12:40:00 Test Item Value Reference Range Interpretation Comments Red Blood Count (test code = 4.34 10*6/uL 789-8) [facility] hemoglobin measurement (mass/volume)2019-11-12 12:40:00 Test Item Value Reference Range Interpretation Comments Hemoglobin (test code = 718-7) 11.6 g/dL [facility]Autom[facility] blood hematocrit (volume fraction)2019-11-12 12:40:00 Test Item Value Reference Range Interpretation Comments Hematocrit (test code = 4544-3) 39.1 % [facility] erythrocyte mean corpuscular volume (MCV) agkvbzuctaq6957-26-50 12:40:00 Test Item Value Reference Range Interpretation Comments Mean Corpuscular Volume (test code = 90 fL 787-2) [facility] erythrocyte mean corpuscular hemoglobin (mass per erythrocyte)2019-11-12 12:40:00 Test Item Value Reference Range Interpretation Comments Mean Corpuscular Hemoglobin (test 26.7 pg code = 785-6) [facility] erythrocyte mean corpuscular hemoglobin concentration measurement (mass/[id number] 12:40:00 Test Item Value Reference Range Interpretation Comments Mean Corpuscular Hemoglobin Concent 29.7 g/dL (test code = 786-4) [facility] erythrocyte distribution width skuhq3433-75-49 12:40:00 Test Item Value Reference Range Interpretation Comments Red Cell Distribution Width (test code 22.7 % = 788-0) [facility]Autom[facility] blood platelet count (count/volume)2019-11-12 12:40:00 Test Item Value Reference Range Interpretation Comments Platelet Count (test code = 237 10*3/uL 777-3) [facility]Autom[facility] blood platelet mean volume zpxtpyjpklg4885-64-63 12:40:00 Test Item Value Reference Range Interpretation Comments Mean Platelet Volume (test code = 11.7 84956-4) [facility]Autom[facility] blood neutrophil count as percentage of total koxznruehq8030-67-88 12:40:00 Test Item Value Reference Range Interpretation Comments Neutrophils (%) (Auto) (test code = 67 % 770-8) [facility]Autom[facility] blood immature granulocyte count as percentage of total obksknvgwh5254-75-26 12:40:00 Test Item Value Reference Range Interpretation Comments Immature Granulocyte % (Auto) (test 0 % code = 49916-9) [facility]Autom[facility] blood lymphocyte count as percentage of total speuegoall4185-71-89 12:40:00 Test Item Value Reference Range Interpretation Comments Lymphocytes (%) (Auto) (test code = 25 % 736-9) [facility]Autom[facility] blood monocyte count as percentage of total dslxxxgkeb6017-31-65 12:40:00 Test Item Value Reference Range Interpretation Comments Monocytes (%) (Auto) (test code = 5 % 5905-5) [facility] blood eosinophil count as percentage of total xaerkjpfmh5306-56-48 12:40:00 Test Item Value Reference Range Interpretation Comments Eosinophils (%) (Auto) (test code = 1 % 713-8) [facility]Autom[facility] blood basophil count as percentage of total rmibtqvlel6145-31-85 12:40:00 Test Item Value Reference Range Interpretation Comments Basophils (%) (Auto) (test code = 1 % 706-2) [facility]Autom[facility] blood nucleated erythrocyte count as percentage of total gbksftqpji7027-75-97 12:40:00 Test Item Value Reference Range Interpretation Comments Nucleated Red Blood Cells % (test code 0.0 % = 66687-1) [facility]Autom[facility] blood neutrophil count (number/volume)2019-11-12 12:40:00 Test Item Value Reference Range Interpretation Comments Neutrophils # (Auto) (test code = 5.6 10*3/uL 751-8) [facility]Autom[facility] blood immature granulocyte count as percentage of total qxhczgchzq6317-34-18 12:40:00 Test Item Value Reference Range Interpretation Comments Immature Granulocyte # (Auto) 0.0 10*3/uL (test code = 42001-6) [facility]Automated blood lymphocyte count (number/volume)2019-11-12 12:40:00 Test Item Value Reference Range Interpretation Comments Lymphocytes # (Auto) (test code = 2.1 10*3/uL 731-0) [facility]. [place] monocytes automated count (number/volume)2019-11-12 12:40:00 Test Item Value Reference Range Interpretation Comments Monocytes # (Auto) (test code = 0.4 10*3/uL 742-7) [facility]. [place]resAutomated blood eosinophil ggjja9156-01-72 12:40:00 Test Item Value Reference Range Interpretation Comments Eosinophils # (Auto) (test code = 0.1 10*3/uL 711-2) [facility] centerAutom[facility] blood basophil count (number/volume)2019-11-12 12:40:00 Test Item Value Reference Range Interpretation Comments Basophils # (Auto) (test code = 0.1 10*3/uL 704-7) [facility]. [place]resAutomated blood nucleated erythrocyte count (count/volume) 2019-11-12 12:40:00 Test Item Value Reference Range Interpretation Comments Nucleated Red Blood Cells # 0.00 10*3/uL (test code = 771-6) [facility]. [facility] [id number] 12:40:00 Test Item Value Reference Range Interpretation Comments Manual Differential (test code Scan RBC Morph = 8265-1) [facility] hypochromia detection by light microscopy 2019-11-12 12:40:00 Test Item Value Reference Range Interpretation Comments Hypochromasia (test code = 728-6) 1+ [facility] centerCrenated erythrocyte detection by light microscopy 2019-11-12 12:40:00 Test Item Value Reference Range Interpretation Comments Ruth Cells/Echinocytes (test code = 1+ 7790-9) [facility]. [facility] ovalocytes detection by light hgtdlmogew1772-54-44 12:40:00 Test Item Value Reference Range Interpretation Comments Ovalocytes (test code = 774-0) 1+ [facility] or plasma sodium measurement (moles/volume) 2019-11-12 12:40:00 Test Item Value Reference Range Interpretation Comments Sodium Level (test code = 2951-2) 140 mmol/L [facility]Serum or plasma potassium measurement (moles/volume) 2019-11-12 12:40:00 Test Item Value Reference Range Interpretation Comments Potassium Level (test code = 4.2 mmol/L 2823-3) [facility] or plasma chloride measurement (moles/volume) 2019-11-12 12:40:00 Test Item Value Reference Range Interpretation Comments Chloride Level (test code = 112 mmol/L 5-0) [facility] or plasma total carbon dioxide measurement (moles/volume)2019-11-12 12:40:00 Test Item Value Reference Range Interpretation Comments Carbon Dioxide Level (test code = 21 mmol/L 2027-9) [facility] or plasma anion gap determination (moles/volume) 2019-11-12 12:40:00 Test Item Value Reference Range Interpretation Comments Anion Gap (test code = 89530-2) [address] ElizabethSerum or plasma urea nitrogen measurement (mass/volume) 2019-11-12 12:40:00 Test Item Value Reference Range Interpretation Comments Blood Urea Nitrogen (test code = 17 mg/dL 3094-0) [facility] or plasma creatinine measurement (mass/volume) 2019-11-12 12:40:00 Test Item Value Reference Range Interpretation Comments Creatinine (test code = 2160-0) 0.9 mg/dL [facility] ElizabethGFR estimate [id number] 12:40:00 Test Item Value Reference Range Interpretation Comments Estimat Glomerular Filtration Rate 94 (test code = 93383-8) [facility] or plasma glucose measurement (mass/volume) 2019-11-12 12:40:00 Test Item Value Reference Range Interpretation Comments Glucose Level (test code = 2345-7) 89 mg/dL [facility] or plasma calcium measurement (mass/volume) 2019-11-12 12:40:00 Test Item Value Reference Range Interpretation Comments Calcium Level (test code = 39590-8) 9.0 mg/dL [facility] Hospitalerum or plasma total bilirubin measurement (mass/volume) 2019-11-12 12:40:00 Test Item Value Reference Range Interpretation Comments Total Bilirubin (test code = 1.9 mg/dL 1975-2) [facility] Hospitalerum or plasma aspartate aminotransferase measurement (enzymatic activity/volume)2019-11-12 12:40:00 Test Item Value Reference Range Interpretation Comments Aspartate Amino Transf (AST/SGOT) 23 U/L (test code = 1920-8) [facility] Hospitalerum or plasma alanine aminotransferase measurement (enzymatic activity/volume)2019-11-12 12:40:00 Test Item Value Reference Range Interpretation Comments Alanine Aminotransferase (ALT/SGPT) 22 U/L (test code = 1742-6) [facility] Hospitalerum or plasma protein measurement (mass/volume) 2019-11-12 12:40:00 Test Item Value Reference Range Interpretation Comments Total Protein (test code = 2885-2) 6.8 g/dL [facility] Hospitalerum or plasma albumin measurement (mass/volume) 2019-11-12 12:40:00 Test Item Value Reference Range Interpretation Comments Albumin (test code = 1751-7) 3.7 g/dL [facility] Hospitalerum or plasma alkaline phosphatase measurement (enzymatic activity/volume)2019-11-12 12:40:00 Test Item Value Reference Range Interpretation Comments Alkaline Phosphatase (test code = 190 U/L 6768-6) [facility] Tstugld0051-76-98 19:54:07 Test Item Value Reference Range Interpretation Comments NT-proBNP (test 96085 pg/mL 0-125 H < 300 pg/ml - heart code = NT-proBNP) failure un likelyAge less than 50 years, > 450 pg/ml - heart f ailure lilkelyAge 50 - 75 years, > 900 pg /ml - heart failure l ikelyAge greater than 75 years, > 1800 pg/ml - he art failure likely POC Troponin [id number] 17:55:38 Test Item Value Reference Range Interpretation Comments Troponin I, POC 0.02 ng/mL 0.00-0.08 0.6-1.9 ng/m l may indicate (test code = Myocardial Ghazala ge2.0 ng/ml Troponin I, POC) is the diag nostic cutoff for Myocardial Damage. When diagnosing AMI, look for the serial rise and fall of Troponi Esperanza conditions resu lting in myocardial cell damage can potentiallyincr ease cardiac Troponin I leve ls. These conditions incl ude, butare not limited to: angina, unstable angina , congestive heart faillure, myocarditis, cardiac surgery , or invasive testin g.Serial sampling as vanessa ropriate is recommended to detect the temporalrise an d fall of troponin levels .For diagnostic purp oses, the Troponin I resu lts should be used inconju nction with other informati on such as EKG, CKMB, clinicalobserva tions, symptons, etc. Comprehensive Metabolic [id number] 16:12:49 Test Item Value Reference Range Interpretation Comments Sodium Level (test code = 140 mmol/L 136-145 Sodium Level) Potassium Level (test code = 4.1 mmol/L 3.5-5.1 Potassium Level) Chloride Level (test code = 106 mmol/L 98-107 Chloride Level) CO2 (test code = CO2) 21 mmol/L 21-32 Anion Gap (test code = Anion 13 mmol/L 7-16 Gap) BUN (test code = BUN) 18 mg/dL 7-18 Creatinine Level (test code = 1.12 mg/dL 0.70-1.30 Creatinine Level) Glucose Level (test code = 68 mg/dL 74-106 L Glucose Level) Calcium Level (test code = 8.7 mg/dL 8.5-10.1 Calcium Level) Alk Phos (test code = Alk 198 IntlUnit/L 45-122 H Phos) Bilirubin Total (test code = 1.50 mg/dL .20-1.00 H Bilirubin Total) Albumin Level (test code = 3.4 g/dL 3.4-5.0 Albumin Level) Protein Total (test code = 6.6 g/dL 6.4-8.2 Protein Total) ALT (test code = ALT) 37 IntlUnit/L 12-78 AST (test code = AST) 32 IntlUnit/L 10-34 Comprehensive Metabolic [id number] 16:12:49 Test Item Value Reference Range Interpretation Comments Sodium Level (test code = 140 mmol/L 136-145 Sodium Level) Potassium Level (test code 4.1 mmol/L 3.5-5.1 = Potassium Level) Chloride Level (test code 106 mmol/L 98-107 = Chloride Level) CO2 (test code = CO2) 21 mmol/L 21-32 Anion Gap (test code = 13 mmol/L 7-16 Anion Gap) BUN (test code = BUN) 18 mg/dL 7-18 Creatinine Level (test 1.12 mg/dL 0.70-1.30 code = Creatinine Level) Glucose Level (test code = 68 mg/dL 74-106 L Glucose Level) Calcium Level (test code = 8.7 mg/dL 8.5-10.1 Calcium Level) Alk Phos (test code = Alk 198 IntlUnit/L 45-122 H Phos) Bilirubin Total (test code 1.50 mg/dL .20-1.00 H = Bilirubin Total) Albumin Level (test code = 3.4 g/dL 3.4-5.0 Albumin Level) Protein Total (test code = 6.6 g/dL 6.4-8.2 Protein Total) ALT (test code = ALT) 37 IntlUnit/L 12-78 AST (test code = AST) 32 IntlUnit/L 10-34 eGFR AA (test code = eGFR >60 mL/min/1.73 m2 N AA) Comprehensive Metabolic [id number] 16:12:49 Test Item Value Reference Range Interpretation Comments Sodium Level (test code = 140 mmol/L 136-145 Sodium Level) Potassium Level (test code 4.1 mmol/L 3.5-5.1 = Potassium Level) Chloride Level (test code 106 mmol/L 98-107 = Chloride Level) CO2 (test code = CO2) 21 mmol/L 21-32 Anion Gap (test code = 13 mmol/L 7-16 Anion Gap) BUN (test code = BUN) 18 mg/dL 7-18 Creatinine Level (test 1.12 mg/dL 0.70-1.30 code = Creatinine Level) Glucose Level (test code = 68 mg/dL 74-106 L Glucose Level) Calcium Level (test code = 8.7 mg/dL 8.5-10.1 Calcium Level) Alk Phos (test code = Alk 198 IntlUnit/L 45-122 H Phos) Bilirubin Total (test code 1.50 mg/dL .20-1.00 H = Bilirubin Total) Albumin Level (test code = 3.4 g/dL 3.4-5.0 Albumin Level) Protein Total (test code = 6.6 g/dL 6.4-8.2 Protein Total) ALT (test code = ALT) 37 IntlUnit/L 12-78 AST (test code = AST) 32 IntlUnit/L 10-34 eGFR AA (test code = eGFR >60 mL/min/1.73 m2 N AA) eGFR Non-AA (test code = >60 mL/min/1.73 m2 N eGFR Non-AA) Prothrombin Time and [id number] 16:12:17 Test Item Value Reference Range Interpretation Comments Prothrombin Time (test code = 13.4 seconds 9.2-12.0 H Prothrombin Time) INR (test code = INR) 1.4 ratio 0.9-1.2 H Partial Thromboplastin [id number] 16:12:17 Test Item Value Reference Range Interpretation Comments Partial Thromboplastin 27.2 seconds 24.0-35.0 APTT Heparin Time (test code = Theraputic Range Partial Thromboplastin 47.9- 80.4 sec Time) Automated [id number] 15:54:08 Test Item Value Reference Range Interpretation Comments Neutro Auto (test code = Neutro Auto) 47.3 % N Lymph Auto (test code = Lymph Auto) 43.0 % N Island Auto (test code = Island Auto) 6.8 % N Eos, Auto (test code = Eos, Auto) 2.3 % N Basophil Auto (test code = Basophil 0.6 % N Auto) Neutro Absolute (test code = Neutro 3.0 x10 2.7-7.3 Absolute) Lymph Absolute (test code = Lymph 2.8 x10 0.8-3.5 Absolute) Island Absolute (test code = Island 0.4 x10 0.3-0.9 Absolute) Eos Absolute (test code = Eos 0.2 x10 0.0-0.3 Absolute) Baso Absolute (test code = Baso 0.0 x10 0.0-0.1 Absolute) Complete Blood Count with [id number] 15:54:07 Test Item Value Reference Range Interpretation Comments WBC (test code = WBC) 6.4 x10 4.8-10.8 RBC (test code = RBC) 4.22 x10 4.60-6.20 L Hgb (test code = Hgb) 11.4 g/dL 14.0-18.0 L Hct (test code = Hct) 36.0 % 38.0-52.0 L MCV (test code = MCV) 85.3 fL 80.0-95.0 RDW (test code = RDW) 18.3 % 11.5-14.5 H MCHC (test code = MCHC) 31.8 g/dL 31.0-36.0 MCH (test code = MCH) 27.1 pg 26.0-32.0 Platelets (test code = 242 x10 140-440 Platelets) MPV (test code = MPV) 9.7 fL 7.5-11.2 Slide Review (test code Auto N Resu lt created by = Slide Review) GL_SET_SLIDE _REVIEW_A UTO Instr WBC (test code = 6.4 N Instr WBC) POC Troponin [id number] 15:52:59 Test Item Value Reference Range Interpretation Comments Troponin I, POC 0.01 ng/mL 0.00-0.08 0.6-1.9 ng/m l may indicate (test code = Myocardial Ghazala ge2.0 ng/ml Troponin I, POC) is the diag nostic cutoff for Myocardial Damage. When diagnosing AMI, look for the serial rise and fall of Troponi Esperanza conditions resu lting in myocardial cell damage can potentiallyincr ease cardiac Troponin I leve ls. These conditions incl ude, butare not limited to: angina, unstable angina , congestive heart faillure, myocarditis, cardiac surgery , or invasive testin g.Serial sampling as vanessa ropriate is recommended to detect the temporalrise an d fall of troponin levels .For diagnostic purp oses, the Troponin I resu lts should be used inconju nction with other informati on such as EKG, CKMB, clinicalobserva tions, symptons, etc. XR Chest 1 View [id number] 15:36:49Patient: ANAHY PONCE Date/Time11/10/201915:35 CDTReason for ExamChest painReportEXAM: Chest, 1 View at 1526.TECHNIQUE: AP semiupright view.COMPARISON: NoneHISTORY: Chest painFINDINGS: Cardiac size and pulmonary vascularity are within normal limits for AP technique. No infiltrate or pleural effusion is seen. Structures are grossly intact.IMPRESSION: No acute appearing cardiopulmonary changes are seen. Final Dictated by: MD Capo, SamerDictated DT/TM: 11/10/2019 3:36 pmSigned by: MD Capo, SamerSigned (Electronic Signature): 11/10/2019 3:36 pmBASIC METABOLIC PANEL (NA, K, CL, CO2, GLUCOSE, BUN, CREATININE, CA)2019-10-17 11:34:00 Test Item Value Reference Range Interpretation Comments NA (test code = 133 mmol/L 135-145 L 4348266398) K (test code = 4.2 mmol/L 3.5-5 8329480050) CL (test code = 92 mmol/L 98-108 L 7932190053) CO2 TOTAL (test code = 32 mmol/L 23-31 H 9593008755) AGAP (test code = 2-16 6163927570) BUN (test code = 21 mg/dL 7-23 6488982506) GLUCOSE (test code = 88 mg/dL 70-110 2490827310) CREATININE (test code = 1.02 mg/dL 0.6-1.25 3109257665) CALCIUM (test code = 9.4 mg/dL 8.6-10.6 1148418808) eGFR Calculation mL/min/1.73m2 (Non-) (test code = 6075728757) eGFR Calculation mL/min/1.73m2 () (test code = 2752234578) NELI (test code = NELI) Association of Glomerular Filtration Rate (GFR) and Staging of Kidney Disease* + --+ --+ ------+| GFR (mL/min/1.73 m2) ?| With Kidney Damage ?| ?Without Kidney Damage+ --------+ --------+ +| ?>90 ?| ?Stage one ?| ? Normal ?+ ---+ ---+ -------+| ?60-89 ?| ?Stage two ?| ? Decreased GFR ? + --+ --+ ------+| ?30-59 ?| ?Stage three ?| ? Stage three ? + --+ --+ ------+| ?15-29 ?| ?Stage four ? | ? Stage four ?+ ---+ ---+ -------+| ?<15 (or dialysis) ? ?| ?Stage five ? | ? Stage five ?+ ---+ ---+ -------+ *Each stage assumes the associated GFR level has been in effect for at least three months. ?Stages 1 to 5, with or without kidney disease, indicate chronic kidney disease. Notes: Determination of stages one and two (with eGFR >59mL/min/1.73 m2) requires estimation of kidney damage for at least three months as defined by structural or functional abnormalities of the kidney, manifested by either:Pathological abnormalities or Markers of kidney damage (including abnormalities in the composition of the blood or urine or abnormalities in imaging tests). Lab Interpretation Abnormal (test code = 49141-1) [facility] METABOLIC PANEL (NA, K, CL, CO2, GLUCOSE, BUN, CREATININE, CA)2019-10-16 10:20:00 Test Item Value Reference Range Interpretation Comments NA (test code = 132 mmol/L 135-145 L 4636554001) K (test code = 3.9 mmol/L 3.5-5 6498607567) CL (test code = 98 mmol/L 98-108 6475861198) CO2 TOTAL (test code = 24 mmol/L 23-31 2410033393) AGAP (test code = 2-16 2379788980) BUN (test code = 16 mg/dL 7-23 0214084727) GLUCOSE (test code = 84 mg/dL 70-110 6196537130) CREATININE (test code = 0.94 mg/dL 0.6-1.25 4457395418) CALCIUM (test code = 9.2 mg/dL 8.6-10.6 2156024258) eGFR Calculation mL/min/1.73m2 (Non-) (test code = 5924274583) eGFR Calculation mL/min/1.73m2 () (test code = 6814912659) NELI (test code = NELI) Association of Glomerular Filtration Rate (GFR) and Staging of Kidney Disease* + --+ --+ ------+| GFR (mL/min/1.73 m2) ?| With Kidney Damage ?| ?Without Kidney Damage+ --------+ --------+ +| ?>90 ?| ?Stage one ?| ? Normal ?+ ---+ ---+ -------+| ?60-89 ?| ?Stage two ?| ? Decreased GFR ? + --+ --+ ------+| ?30-59 ?| ?Stage three ?| ? Stage three ? + --+ --+ ------+| ?15-29 ?| ?Stage four ? | ? Stage four ?+ ---+ ---+ -------+| ?<15 (or dialysis) ? ?| ?Stage five ? | ? Stage five ?+ ---+ ---+ -------+ *Each stage assumes the associated GFR level has been in effect for at least three months. ?Stages 1 to 5, with or without kidney disease, indicate chronic kidney disease. Notes: Determination of stages one and two (with eGFR >59mL/min/1.73 m2) requires estimation of kidney damage for at least three months as defined by structural or functional abnormalities of the kidney, manifested by either:Pathological abnormalities or Markers of kidney damage (including abnormalities in the composition of the blood or urine or abnormalities in imaging tests). Lab Interpretation Abnormal (test code = 46486-1) [facility] [id number] 07:59:00 Test Item Value Reference Range Interpretation Comments TROPONIN I (test 0.018 ng/mL See_Comment [Automated code = [id number]) message] The system which generated this result transmitted reference range : <=0.034. The reference range was not used to interpret this result as normal/abnormal . NELI (test code = Equal or Less than NELI) 0.034 ng/ml---Normal ?Note: Cardiac troponin begins to rise 3-4 hours after the onset of ischemia. Repeat in 4-6 hours if the sample was drawn within 3-4 hours of the onset of the symptom and found normal. Between 0.035 and 0.120 ng/mL--- Borderline. Questionable myocardial injury or necrosis ? ?Note: Serial measurement may be necessary to confirm or exclude the diagnosis of myocardial injury or necrosis; Clinical correlation (symptoms, EKGs, imaging studies, and others) required; Repeat in 4-6 hours if clinically indicated. ? Equal or Higher than 0.121 ng/mL---Abnormal. Myocardial Injury or Necrosis Likely ? Biotin has been reported to cause a negative bias, interpret results relative to patient's use of biotin. ? Lab Interpretation Normal (test code = 84375-5) [facility] Met[facility] (NA, K, CL, CO2, GLUCOSE, BUN, CREATININE, CA)2019-10-15 07:51:00 Test Item Value Reference Range Interpretation Comments NA (test code = 137 mmol/L 135-145 3799625502) K (test code = 3.6 mmol/L 3.5-5 8491479379) CL (test code = 101 mmol/L 98-108 1227000907) CO2 TOTAL (test code = 25 mmol/L 23-31 9744847929) AGAP (test code = 2-16 6031111838) BUN (test code = 16 mg/dL 7-23 1653935489) GLUCOSE (test code = 95 mg/dL 70-110 6022731670) CREATININE (test code 0.97 mg/dL 0.6-1.25 = 9112745431) CALCIUM (test code = 9.8 mg/dL 8.6-10.6 4396449978) eGFR Calculation mL/min/1.73m2 (Non-) (test code = 4347232443) eGFR Calculation mL/min/1.73m2 () (test code = 2732907701) NELI (test code = NELI) Association of Glomerular Filtration Rate (GFR) and Staging of Kidney Disease* + -+ + ---+| GFR (mL/min/1.73 m2) ?| With Kidney Damage ?| ?Without Kidney Damage+ -------+ ------+ ---------+| ?>90 ?| ?Stage one ?| ? Normal ?+ --+ -+ ----+| ?60-89 ?| ?Stage two ?| ? Decreased GFR ? + -+ + ---+| ?30-59 ?| ?Stage three ?| ? Stage three ? + -+ + ---+| ?15-29 ?| ?Stage four ? | ? Stage four ?+ --+ -+ ----+| ?<15 (or dialysis) ? ?| ?Stage five ? | ? Stage five ?+ --+ -+ ----+ *Each stage assumes the associated GFR level has been in effect for at least three months. ?Stages 1 to 5, with or without kidney disease, indicate chronic kidney disease. Notes: Determination of stages one and two (with eGFR >59mL/min/1.73 m2) requires estimation of kidney damage for at least three months as defined by structural or functional abnormalities of the kidney, manifested by either:Pathological abnormalities or Markers of kidney damage (including abnormalities in the composition of the blood or urine or abnormalities in imaging tests). [facility] WITH [id number] 07:35:00 Test Item Value Reference Range Interpretation Comments WBC (test code = See_Comment [Automated 9990-2) message] The sy stem which generated this result transmitted reference range : 4.20 - 10.70 10*3/?L. The reference range was not used to interpret this result as normal/abnormal . RBC (test code = See_Comment [Automated 789-8) message] The sy stem which generated this result transmitted reference range : 4.26 - 5.52 10*6/?L. The reference range was not used to interpret this result as normal/abnormal . HGB (test code = 13.7 g/dL 12.2-16.4 718-7) HCT (test code = 44.6 % 38.4-49.3 4544-3) MCV (test code = 84.3 fL 81.7-95.6 787-2) MCH (test code = 25.9 pg 26.1-32.7 L 785-6) MCHC (test code = 30.7 g/dL 31.2-35 L 786-4) RDW-SD (test code = 54.4 fL 38.5-51.6 H 29695-4) RDW-CV (test code = 19.1 % 12.1-15.4 H 788-0) PLT (test code = See_Comment [Automated 777-3) message] The sy stem which generated this result transmitted reference range : 150 - 328 10*3/ ?L. The reference r minerva was not used to interpret this result as normal/abnormal . MPV (test code = 11.5 fL 9.8-13 20356-2) NRBC/100 WBC (test See_Comment [Automat ed code = 2340819452) message] The system which generated this result transmitted reference range : 0.0 - 10.0 /100 WBCs. The refer ence range was not u sed to interpret th is result as normal/abnormal . NRBC x10^3 (test code <0.01 See_Comment [Auto mated = 9209625578) message] The s ystem which generated this result transmitted reference range : 10*3/?L. The reference range was not used to interpret this result as normal/abnormal . GRAN MAT (NEUT) % 60.1 % (test code = 770-8) IMM GRAN % (test code 0.30 % = 7019310971) LYMPH % (test code = 32.4 % 736-9) MONO % (test code = 4.8 % 5905-5) EOS % (test code = 1.5 % 713-8) BASO % (test code = 0.9 % 706-2) GRAN MAT x10^3(ANC) 4.72 10*3/uL 1.99-6.95 (test code = 1973670944) IMM GRAN x10^3 (test <0.03 0-0.06 code = 9107050754) LYMPH x10^3 (test code 2.55 10*3/uL 1.09-3.23 = 731-0) MONO x10^3 (test code 0.38 10*3/uL 0.36-1.02 = 742-7) EOS x10^3 (test code = 0.12 10*3/uL 0.06-0.53 711-2) BASO x10^3 (test code 0.07 10*3/uL 0.01-0.09 = 704-7) Lab Interpretation Abnormal (test code = 96130-4) [facility] [id number] 02:55:00 Test Item Value Reference Range Interpretation Comments TROPONIN I (test <0.012 See_Comment [Automated code = 3303025223) message] The system which generated this result transmitted reference range : <=0.034 ng/mL. The reference range was not used to interpr et this result as normal/abnormal . NELI (test code = Equal or Less than NELI) 0.034 ng/ml---Normal ?Note: Cardiac troponin begins to rise 3-4 hours after the onset of ischemia. Repeat in 4-6 hours if the sample was drawn within 3-4 hours of the onset of the symptom and found normal. Between 0.035 and 0.120 ng/mL--- Borderline. Questionable myocardial injury or necrosis ? ?Note: Serial measurement may be necessary to confirm or exclude the diagnosis of myocardial injury or necrosis; Clinical correlation (symptoms, EKGs, imaging studies, and others) required; Repeat in 4-6 hours if clinically indicated. ? Equal or Higher than 0.121 ng/mL---Abnormal. Myocardial Injury or Necrosis Likely ? Biotin has been reported to cause a negative bias, interpret results relative to patient's use of biotin. ? Lab Interpretation Normal (test code = 68338-9) [facility] (ID NOW RAPID TESTING)2019-10-14 20:41:00 Test Item Value Reference Range Interpretation Comments SARS-CoV-2 Rapid ID NOW Not Detected Not Detected (test code = 96887-9) ENLI (test code = NELI) ID NOW COVID-19 Assay is an isothermal nucleic acid amplification test intended for the qualitative detection of nucleic acid from SARS-CoV-2 viral RNA in nasopharyngeal ([employer]) specimens. It is used under Emergency Use Authorization (EUA) by FDA. The limit of detection (LOD) of the assay is 125 Genome Equivalents/mL. A positive result is indicative of the presence of SARS-CoV-2 RNA. ?Clinical correlation with patient history and other diagnostic information is necessary to determine patient infection status. A negative (Not Detected) result does not preclude SARS-CoV-2 infection. In patients with clinical symptoms and other tests that are consistent with SARS-CoV-2 infection, negative results should be treated as presumptive negative and a new specimen should be tested with alternative PCR molecular test. Invalid: Please collect a new specimen for repeat patient testing if clinically indicated. Lab Interpretation Normal (test code = 60109-2) [facility] Tyler[facility] 1 [id number] 20:19:29 No acute cardiopulmonary abnormality. Stable cardiomegaly. Preliminary Report Dictated by Resident: Maikol Mi MD., have reviewed this study and agree with the abovereport.EXAM: XR CHEST 1 VW HISTORY: sob COMPARISON: Chest x-ray 09/16/2019 Technique: ?AP view radiograph of the chest FINDINGS: No focal consolidation, pleural effusion or pneumothorax is seen. Smallnodular den sity in the right upper lobe is unchanged. The cardiac silhouette is mildly enlarged, as before. No acute bony abnormality. [facility], Radiant Results Inft User - 10/14/2019 3:20 PM CDTEXAM: XR CHEST 1 VWHISTORY: sob COMPARISON: Chest x-ray 09/16/2019Technique: AP view radiograph of the chestFINDINGS:No focal consolidation, pleural effusion or pneumothorax is seen. Smallnodular density in the right upperlobe is unchanged.The cardiac silhouette is mildly enlarged, as before.No acute bony abnormality.IMPRESSIONNo acute cardiopulmonary abnormality. Stable cardiomegaly.Preliminary Report Dictated by Resident: Maikol Delaney MD., have reviewed this study and agree with the abovereport. [facility] TylerTroponin [id number] 20:07:00 Test Item Value Reference Range Interpretation Comments TROPONIN I (test 0.017 ng/mL See_Comment [Automated code = 9485544830) message] The system which generated this result transmitted reference range : <=0.034. The reference range was not used to interpret this result as normal/abnormal . NELI (test code = Equal or Less than NELI) 0.034 ng/ml---Normal ?Note: Cardiac troponin begins to rise 3-4 hours after the onset of ischemia. Repeat in 4-6 hours if the sample was drawn within 3-4 hours of the onset of the symptom and found normal. Between 0.035 and 0.120 ng/mL--- Borderline. Questionable myocardial injury or necrosis ? ?Note: Serial measurement may be necessary to confirm or exclude the diagnosis of myocardial injury or necrosis; Clinical correlation (symptoms, EKGs, imaging studies, and others) required; Repeat in 4-6 hours if clinically indicated. ? Equal or Higher than 0.121 ng/mL---Abnormal. Myocardial Injury or Necrosis Likely ? Biotin has been reported to cause a negative bias, interpret results relative to patient's use of biotin. ? Lab Interpretation Normal (test code = 32968-0) [facility] TylerN-TERMINAL [id number] 20:04:00 Test Item Value Reference Range Interpretation Comments NT-proBNP (test code 9620 pg/mL See_Comment H [Autom ated = 5820429362) message] The system which generated this result transmitted reference range : <=125. The reference range was not used to interpret this result as normal/abnormal . NELI (test code = NELI) Biotin has been reported to cause a negative bias, interpret results relative to patient's use of biotin. Lab Interpretation Abnormal (test code = 88125-6) [facility] Tyler[facility] MET[facility]OL[facility] PAN[facility] (NA, K, CL, CO2, GLUCOSE, BUN, CREATININE, CA)2019-10-14 19:57:00 Test Item Value Reference Range Interpretation Comments NA (test code = 135 mmol/L 135-145 4660664177) K (test code = 4.4 mmol/L 3.5-5 1274321322) CL (test code = 107 mmol/L 98-108 8425841105) CO2 TOTAL (test code = 18 mmol/L 23-31 L 0074869308) AGAP (test code = 2-16 1304155571) BUN (test code = 17 mg/dL 7-23 4776504855) GLUCOSE (test code = 138 mg/dL 70-110 H 2242761493) CREATININE (test code = 0.86 mg/dL 0.6-1.25 1684650351) CALCIUM (test code = 8.8 mg/dL 8.6-10.6 3696617597) eGFR Calculation mL/min/1.73m2 (Non-) (test code = 7287560773) eGFR Calculation mL/min/1.73m2 () (test code = 1765131648) NELI (test code = NELI) Association of Glomerular Filtration Rate (GFR) and Staging of Kidney Disease* + --+ --+ ------+| GFR (mL/min/1.73 m2) ?| With Kidney Damage ?| ?Without Kidney Damage+ --------+ --------+ +| ?>90 ?| ?Stage one ?| ? Normal ?+ ---+ ---+ -------+| ?60-89 ?| ?Stage two ?| ? Decreased GFR ? + --+ --+ ------+| ?30-59 ?| ?Stage three ?| ? Stage three ? + --+ --+ ------+| ?15-29 ?| ?Stage four ? | ? Stage four ?+ ---+ ---+ -------+| ?<15 (or dialysis) ? ?| ?Stage five ? | ? Stage five ?+ ---+ ---+ -------+ *Each stage assumes the associated GFR level has been in effect for at least three months. ?Stages 1 to 5, with or without kidney disease, indicate chronic kidney disease. Notes: Determination of stages one and two (with eGFR >59mL/min/1.73 m2) requires estimation of kidney damage for at least three months as defined by structural or functional abnormalities of the kidney, manifested by either:Pathological abnormalities or Markers of kidney damage (including abnormalities in the composition of the blood or urine or abnormalities in imaging tests). Lab Interpretation Abnormal (test code = 33227-9) [facility] TylerMagnesium [id number] 19:57:00 Test Item Value Reference Range Interpretation Comments MAGNESIUM (test code = 3537534188) 1.8 mg/dL 1.7-2.4 Lab Interpretation (test code = Normal 26386-9) [facility] WITH [id number] 19:46:00 Test Item Value Reference Range Interpretation Comments WBC (test code = See_Comment [Automated 5990-2) message] The sy stem which generated this result transmitted reference range : 4.20 - 10.70 10*3/?L. The reference range was not used to interpret this result as normal/abnormal . RBC (test code = See_Comment [Automated 789-8) message] The sy stem which generated this result transmitted reference range : 4.26 - 5.52 10*6/?L. The reference range was not used to interpret this result as normal/abnormal . HGB (test code = 12.4 g/dL 12.2-16.4 718-7) HCT (test code = 39.3 % 38.4-49.3 4544-3) MCV (test code = 82.6 fL 81.7-95.6 787-2) MCH (test code = 26.1 pg 26.1-32.7 785-6) MCHC (test code = 31.6 g/dL 31.2-35 786-4) RDW-SD (test code = 53.4 fL 38.5-51.6 H 87654-6) RDW-CV (test code = 18.8 % 12.1-15.4 H 788-0) PLT (test code = See_Comment [Automated 777-3) message] The sy stem which generated this result transmitted reference range : 150 - 328 10*3/ ?L. The reference r minerva was not used to interpret this result as normal/abnormal . MPV (test code = 12.3 fL 9.8-13 26254-8) NRBC/100 WBC (test See_Comment [Automat ed code = 9840601781) message] The system which generated this result transmitted reference range : 0.0 - 10.0 /100 WBCs. The refer ence range was not u sed to interpret th is result as normal/abnormal . NRBC x10^3 (test code <0.01 See_Comment [Auto mated = 1760936416) message] The s ystem which generated this result transmitted reference range : 10*3/?L. The reference range was not used to interpret this result as normal/abnormal . GRAN MAT (NEUT) % 64.7 % (test code = 770-8) IMM GRAN % (test code 0.30 % = 5329167158) LYMPH % (test code = 26.8 % 736-9) MONO % (test code = 6.3 % 5905-5) EOS % (test code = 0.9 % 713-8) BASO % (test code = 1.0 % 706-2) GRAN MAT x10^3(ANC) 5.19 10*3/uL 1.99-6.95 (test code = 2382336311) IMM GRAN x10^3 (test <0.03 0-0.06 code = 2162600714) LYMPH x10^3 (test code 2.14 10*3/uL 1.09-3.23 = 731-0) MONO x10^3 (test code 0.50 10*3/uL 0.36-1.02 = 742-7) EOS x10^3 (test code = 0.07 10*3/uL 0.06-0.53 711-2) BASO x10^3 (test code 0.08 10*3/uL 0.01-0.09 = 704-7) Lab Interpretation Abnormal (test code = 95925-7) [facility] TylerGAL[facility] ONLY - URINE DRUG (LCMSMS) - DESTINY PANEL 2019-09-19 13:40:00 Test Item Value Reference Range Interpretation Comments Amphetamine-Interpreta Negative Negative tion (test code = 0248711645) METHAMPH-LCMS (test 132 ng/mL <100 H code = 6051022830) METHAMPH-CREATININE 103 ng/mg NORMALIZED (test code = 9258487031) METHAMPH-INTERPREPRETA Positive Negative A TION (test code = 3614695777) BENZOYLE-INTERPRETATIO Negative Negative N (test code = 8020249594) PHENCYCLID-INTERPRETAT Negative Negative ION (test code = 7131829052) CREAT U (test code = 128.1 mg/dL 1997006159) NELI (test code = NELI) Test developed and characteristics determined by [facility] Services. Lab Interpretation Abnormal (test code = 90349-7) [facility] Tyler[facility] METABOLIC PANEL (NA, K, CL, CO2, GLUCOSE, BUN, CREATININE, CA)2019-09-19 11:44:00 Test Item Value Reference Range Interpretation Comments NA (test code = 134 mmol/L 135-145 L 1304930214) K (test code = 3.1 mmol/L 3.5-5 L 9957194869) CL (test code = 96 mmol/L 98-108 L 8805046336) CO2 TOTAL (test code = 29 mmol/L 23-31 4711595010) AGAP (test code = 2-16 4881192578) BUN (test code = 21 mg/dL 7-23 6166665347) GLUCOSE (test code = 83 mg/dL 70-110 5358260505) CREATININE (test code = 1.04 mg/dL 0.6-1.25 4506907882) CALCIUM (test code = 8.2 mg/dL 8.6-10.6 L 8355991276) eGFR Calculation mL/min/1.73m2 (Non-) (test code = 3454842158) eGFR Calculation mL/min/1.73m2 () (test code = 3379980549) NELI (test code = NELI) Association of Glomerular Filtration Rate (GFR) and Staging of Kidney Disease* + --+ --+ ------+| GFR (mL/min/1.73 m2) ?| With Kidney Damage ?| ?Without Kidney Damage+ --------+ --------+ +| ?>90 ?| ?Stage one ?| ? Normal ?+ ---+ ---+ -------+| ?60-89 ?| ?Stage two ?| ? Decreased GFR ? + --+ --+ ------+| ?30-59 ?| ?Stage three ?| ? Stage three ? + --+ --+ ------+| ?15-29 ?| ?Stage four ? | ? Stage four ?+ ---+ ---+ -------+| ?<15 (or dialysis) ? ?| ?Stage five ? | ? Stage five ?+ ---+ ---+ -------+ *Each stage assumes the associated GFR level has been in effect for at least three months. ?Stages 1 to 5, with or without kidney disease, indicate chronic kidney disease. Notes: Determination of stages one and two (with eGFR >59mL/min/1.73 m2) requires estimation of kidney damage for at least three months as defined by structural or functional abnormalities of the kidney, manifested by either:Pathological abnormalities or Markers of kidney damage (including abnormalities in the composition of the blood or urine or abnormalities in imaging tests). Lab Interpretation Abnormal (test code = 78708-4) [facility] (NA, K, CL, CO2, GLUCOSE, BUN, CREATININE, CA)2019-09-18 15:37:00 Test Item Value Reference Range Interpretation Comments NA (test code = 134 mmol/L 135-145 L 8827305684) K (test code = 4.0 mmol/L 3.5-5 4533562308) CL (test code = 103 mmol/L 98-108 7082114070) CO2 TOTAL (test code = 22 mmol/L 23-31 L 6546492386) AGAP (test code = 2-16 2811010413) BUN (test code = 23 mg/dL 7-23 7265710763) GLUCOSE (test code = 119 mg/dL 70-110 H 2661759713) CREATININE (test code = 0.95 mg/dL 0.6-1.25 0883451491) CALCIUM (test code = 8.2 mg/dL 8.6-10.6 L 1046430692) eGFR Calculation mL/min/1.73m2 (Non-) (test code = 6078764882) eGFR Calculation mL/min/1.73m2 () (test code = 2448820312) NELI (test code = NELI) Association of Glomerular Filtration Rate (GFR) and Staging of Kidney Disease* + --+ --+ ------+| GFR (mL/min/1.73 m2) ?| With Kidney Damage ?| ?Without Kidney Damage+ --------+ --------+ +| ?>90 ?| ?Stage one ?| ? Normal ?+ ---+ ---+ -------+| ?60-89 ?| ?Stage two ?| ? Decreased GFR ? + --+ --+ ------+| ?30-59 ?| ?Stage three ?| ? Stage three ? + --+ --+ ------+| ?15-29 ?| ?Stage four ? | ? Stage four ?+ ---+ ---+ -------+| ?<15 (or dialysis) ? ?| ?Stage five ? | ? Stage five ?+ ---+ ---+ -------+ *Each stage assumes the associated GFR level has been in effect for at least three months. ?Stages 1 to 5, with or without kidney disease, indicate chronic kidney disease. Notes: Determination of stages one and two (with eGFR >59mL/min/1.73 m2) requires estimation of kidney damage for at least three months as defined by structural or functional abnormalities of the kidney, manifested by either:Pathological abnormalities or Markers of kidney damage (including abnormalities in the composition of the blood or urine or abnormalities in imaging tests). Lab Interpretation Abnormal (test code = 07404-5) [facility] TylerVITAMIN D, [id number] 03:49:00 Test Item Value Reference Range Interpretation Comments VIT D 25OH (test code = 38 ng/mL 25-80 26558-1) NELI (test code = NELI) Deficiency: <20 ng/mLInsufficiency : 20-24 ng/mLOptimal: 25-80 ng/mL Lab Interpretation (test Normal code = 53271-7) [facility] TylerVITAMIN B12, [id number] 01:47:00 Test Item Value Reference Range Interpretation Comments VIT B12 (test code = 642 pg/mL 240-930 2189329228) NELI (test code = NELI) Biotin has been reported to cause a positive bias, interpret results relative to patient's use of biotin. Lab Interpretation (test Normal code = 88022-4) [facility] TylerFOLATE2020-05-15 01:47:00 Test Item Value Reference Range Interpretation Comments FOLATE SER (test code = 19.9 ng/mL 3-20 Biot in has been 4773703048) reported to cau se a positive bias, interpret resul ts relative to patient's use o f biotin. Lab Interpretation (test Normal code = 49478-3) [facility] TylerIRON [id number] 19:23:00 Test Item Value Reference Range Interpretation Comments IRON (test code = 1211316866) 20 ug/dL 50-160 L TIBC (test code = 2102010490) 352 ug/dL 250-410 % FE SAT (test code = 4892731991) 6 % 20-50 L Lab Interpretation (test code = Abnormal 30156-8) [facility] TylerFERRITIN [id number] 18:05:00 Test Item Value Reference Range Interpretation Comments FERRITIN (test code = 65.8 ng/mL 18-464 8013534856) NELI (test code = NELI) Biotin has been reported to cause a negative bias, interpret results relative to patient's use of biotin. Lab Interpretation (test Normal code = 07154-9) [facility] TylerTroponin [id number] 11:52:00 Test Item Value Reference Range Interpretation Comments TROPONIN I (test 0.013 ng/mL See_Comment [Automated code = 1091888189) message] The system which generated this result transmitted reference range : <=0.034. The reference range was not used to interpret this result as normal/abnormal . NELI (test code = Equal or Less than NELI) 0.034 ng/ml---Normal ?Note: Cardiac troponin begins to rise 3-4 hours after the onset of ischemia. Repeat in 4-6 hours if the sample was drawn within 3-4 hours of the onset of the symptom and found normal. Between 0.035 and 0.120 ng/mL--- Borderline. Questionable myocardial injury or necrosis ? ?Note: Serial measurement may be necessary to confirm or exclude the diagnosis of myocardial injury or necrosis; Clinical correlation (symptoms, EKGs, imaging studies, and others) required; Repeat in 4-6 hours if clinically indicated. ? Equal or Higher than 0.121 ng/mL---Abnormal. Myocardial Injury or Necrosis Likely ? Biotin has been reported to cause a negative bias, interpret results relative to patient's use of biotin. ? Lab Interpretation Normal (test code = 70865-2) [facility] TylerN-TERMINAL [id number] 11:50:00 Test Item Value Reference Range Interpretation Comments NT-proBNP (test code 8460 pg/mL See_Comment H [Autom ated = 8608230583) message] The system which generated this result transmitted reference range : <=125. The reference range was not used to interpret this result as normal/abnormal . NELI (test code = NELI) Biotin has been reported to cause a negative bias, interpret results relative to patient's use of biotin. Lab Interpretation Abnormal (test code = 85252-2) [facility] TylerMAGNESIUM2020-05-14 11:41:00 Test Item Value Reference Range Interpretation Comments MAGNESIUM (test code = 9206532402) 1.8 mg/dL 1.7-2.4 Lab Interpretation (test code = Normal 39673-3) [facility] TylerPHOSPHORUS2020-05-14 11:41:00 Test Item Value Reference Range Interpretation Comments PHOSPHORUS (test code = 2688642630) 3.2 mg/dL 2.5-5 Lab Interpretation (test code = Normal 79494-2) [facility] TylerCOMP. METABOLIC PANEL (17584)2019-09-17 11:41:00 Test Item Value Reference Range Interpretation Comments NA (test code = 136 mmol/L 135-145 0431689814) K (test code = 4.4 mmol/L 3.5-5 6604630767) CL (test code = 104 mmol/L 98-108 6460989769) CO2 TOTAL (test code = 21 mmol/L 23-31 L 3686964258) AGAP (test code = 2-16 9344800902) BUN (test code = 22 mg/dL 7-23 7994118595) GLUCOSE (test code = 92 mg/dL 70-110 9850410639) CREATININE (test code = 0.94 mg/dL 0.6-1.25 4836967994) TOTAL BILI (test code = 1.8 mg/dL 0.1-1.1 H 8158142090) CALCIUM (test code = 8.6 mg/dL 8.6-10.6 6175900391) T PROTEIN (test code = 6.5 g/dL 6.3-8.2 4702932225) ALBUMIN (test code = 3.3 g/dL 3.5-5 L 5731254654) ALK PHOS (test code = 167 U/L 34-122 H 4045600013) ALTv (test code = 41 U/L 5-50 1742-6) AST(SGOT) (test code = 64 U/L 13-40 H 9253394139) eGFR Calculation mL/min/1.73m2 (Non-) (test code = 0355441516) eGFR Calculation mL/min/1.73m2 () (test code = 9462663001) NELI (test code = NELI) Association of Glomerular Filtration Rate (GFR) and Staging of Kidney Disease* + --+ --+ ------+| GFR (mL/min/1.73 m2) ?| With Kidney Damage ?| ?Without Kidney Damage+ --------+ --------+ +| ?>90 ?| ?Stage one ?| ? Normal ?+ ---+ ---+ -------+| ?60-89 ?| ?Stage two ?| ? Decreased GFR ? + --+ --+ ------+| ?30-59 ?| ?Stage three ?| ? Stage three ? + --+ --+ ------+| ?15-29 ?| ?Stage four ? | ? Stage four ?+ ---+ ---+ -------+| ?<15 (or dialysis) ? ?| ?Stage five ? | ? Stage five ?+ ---+ ---+ -------+ *Each stage assumes the associated GFR level has been in effect for at least three months. ?Stages 1 to 5, with or without kidney disease, indicate chronic kidney disease. Notes: Determination of stages one and two (with eGFR >59mL/min/1.73 m2) requires estimation of kidney damage for at least three months as defined by structural or functional abnormalities of the kidney, manifested by either:Pathological abnormalities or Markers of kidney damage (including abnormalities in the composition of the blood or urine or abnormalities in imaging tests). Lab Interpretation Abnormal (test code = 38885-8) [facility] WITH [id number] 11:29:00 Test Item Value Reference Range Interpretation Comments WBC (test code = See_Comment [Automated 2745-2) message] The sy stem which generated this result transmitted reference range : 4.20 - 10.70 10*3/?L. The reference range was not used to interpret this result as normal/abnormal . RBC (test code = See_Comment L [Automated 909-8) message] The sy stem which generated this result transmitted reference range : 4.26 - 5.52 10*6/?L. The reference range was not used to interpret this result as normal/abnormal . HGB (test code = 10.7 g/dL 12.2-16.4 L 718-7) HCT (test code = 34.8 % 38.4-49.3 L 4544-3) MCV (test code = 86.8 fL 81.7-95.6 787-2) MCH (test code = 26.7 pg 26.1-32.7 785-6) MCHC (test code = 30.7 g/dL 31.2-35 L 786-4) RDW-SD (test code = 53.3 fL 38.5-51.6 H 04370-0) RDW-CV (test code = 17.2 % 12.1-15.4 H 788-0) PLT (test code = See_Comment [Automated 777-3) message] The sy stem which generated this result transmitted reference range : 150 - 328 10*3/ ?L. The reference r minerva was not used to interpret this result as normal/abnormal . MPV (test code = 11.8 fL 9.8-13 05647-0) NRBC/100 WBC (test See_Comment [Automat ed code = 1056290720) message] The system which generated this result transmitted reference range : 0.0 - 10.0 /100 WBCs. The refer ence range was not u sed to interpret th is result as normal/abnormal . NRBC x10^3 (test code <0.01 See_Comment [Auto mated = 3189538701) message] The s ystem which generated this result transmitted reference range : 10*3/?L. The reference range was not used to interpret this result as normal/abnormal . GRAN MAT (NEUT) % 73.2 % (test code = 770-8) IMM GRAN % (test code 0.40 % = 1397215723) LYMPH % (test code = 19.1 % 736-9) MONO % (test code = 5.4 % 5905-5) EOS % (test code = 0.9 % 713-8) BASO % (test code = 1.0 % 706-2) GRAN MAT x10^3(ANC) 5.95 10*3/uL 1.99-6.95 (test code = 4386323348) IMM GRAN x10^3 (test 0.03 10*3/uL 0-0.06 code = 8578532426) LYMPH x10^3 (test code 1.55 10*3/uL 1.09-3.23 = 731-0) MONO x10^3 (test code 0.44 10*3/uL 0.36-1.02 = 742-7) EOS x10^3 (test code = 0.07 10*3/uL 0.06-0.53 711-2) BASO x10^3 (test code 0.08 10*3/uL 0.01-0.09 = 704-7) Lab Interpretation Abnormal (test code = 79185-9) [facility] [id number] 05:38:00 Test Item Value Reference Range Interpretation Comments TROPONIN I (test 0.012 ng/mL See_Comment [Automated code = 1170116839) message] The system which generated this result transmitted reference range : <=0.034. The reference range was not used to interpret this result as normal/abnormal . NELI (test code = Equal or Less than NELI) 0.034 ng/ml---Normal ?Note: Cardiac troponin begins to rise 3-4 hours after the onset of ischemia. Repeat in 4-6 hours if the sample was drawn within 3-4 hours of the onset of the symptom and found normal. Between 0.035 and 0.120 ng/mL--- Borderline. Questionable myocardial injury or necrosis ? ?Note: Serial measurement may be necessary to confirm or exclude the diagnosis of myocardial injury or necrosis; Clinical correlation (symptoms, EKGs, imaging studies, and others) required; Repeat in 4-6 hours if clinically indicated. ? Equal or Higher than 0.121 ng/mL---Abnormal. Myocardial Injury or Necrosis Likely ? Biotin has been reported to cause a negative bias, interpret results relative to patient's use of biotin. ? Lab Interpretation Normal (test code = 99892-9) [facility] 03:40:00 Test Item Value Reference Range Interpretation Comments APPEARANCE (test code = Clear Clear 7065560466) COLOR (test code = Sabi Yellow A 9358505249) PH (test code = 4.8-8.0 2383184664) SP GRAVITY (test code = 1.003-1.030 9129452394) GLU U QUAL (test code = Normal Normal 6649673091) BLOOD (test code = Negative Negative 3129269613) KETONES (test code = Negative Negative 5779344276) PROTEIN (test code = 100 mg/dL Negative A 2887-8) UROBILIN (test code = 2.0 mg/dL Normal A 6146058979) BILIRUBIN (test code = Negative Negative 7009942548) NITRITE (test code = Negative Negative 1291844329) LEUK ALLEN (test code = Negative Negative 6499660795) RBC/HPF (test code = See_Comment [Autom ated message] 4547875304) The system [employer] generated this result transmit sb reference range : 0 - 3 HPF. The refe rence range was not u sed to interpret th is result as normal/abnormal . WBC/HPF (test code = See_Comment [Autom ated message] 7274969679) The system [employer] generated this result transmit sb reference range : 0 - 5 HPF. The refe rence range was not u sed to interpret th is result as normal/abnormal . BACTERIA (test code = Few Negative A 2948934613) MUCOUS (test code = Moderate Negative LPF A 2114664797) HYAL CAST (test code = See_Comment H [Aut omated message] 6732005885) The system [employer] generated this result transmit sb reference range : <=2 LPF. The refere nce range was not u sed to interpret th is result as normal/abnormal . Broad Casts (test code = See_Comment [A utomated message] 0956402699) The system [employer] generated this result transmit sb reference range : <=1 LPF. The refere nce range was not u sed to interpret th is result as normal/abnormal . Lab Interpretation (test Abnormal code = 88005-2) [facility] - DRUG SCREEN [id number] 02:58:00 Test Item Value Reference Range Interpretation Comments BENZO U (test code = Negative Negative 5120623197) GENIE U (test code = Negative Negative 5448280913) AMPHET (test code = Negative Negative 5106186644) THC (test code = Negative Negative 8426669840) METHADONE (test code = Presumptive Positive Negative A 1521782363) Meth U (test code = Presumptive Positive Negative A 4193078240) OPIATES (test code = Negative Negative 1581800079) Cocaine Metabolite (test Negative Negative code = 0940822095) PROPOXY (test code = Negative Negative 7766722418) Tric U (test code = Negative Negative 0010078254) PCP (test code = Negative Negative 9391994284) OXYCOD (test code = Negative Negative 7717153118) NELI (test code = NELI) Urine Drug Cutoff Ranges Benzodiazepines: ? ? 150 ng/mLBarbiturates: ?200 ng/mLAmphetamine: ? 500 ng/mLCannabinoids: ?50 ?ng/mLMethadone: ? 200 ng/mLMethamphetamine: ? ? 500 ng/mL Opiates: ? 100 ng/mL or 2000 ng/mLCocaine: ? 150 ng/mLPropoxyphene: ?300 ng/mLTricyclics: ?300 ng/mLOxycodone: ? 100 ng/mLPCP: ? 25 ?ng/mL The results are to be used only for medical (i.e., treatment) purposes. Unconfirmed screening results must not be used for non-medical purposes (e.g., employment testing, legal testing). Lab Interpretation (test Abnormal code = 53269-0) [facility] METABOLIC PANEL (NA, K, CL, CO2, GLUCOSE, BUN, CREATININE, CA)2019-09-17 02:44:00 Test Item Value Reference Range Interpretation Comments NA (test code = 136 mmol/L 135-145 1821909845) K (test code = 4.7 mmol/L 3.5-5 1410505876) CL (test code = 101 mmol/L 98-108 4150514288) CO2 TOTAL (test code = 24 mmol/L 23-31 6074230674) AGAP (test code = 2-16 8282523744) BUN (test code = 20 mg/dL 7-23 6989309576) GLUCOSE (test code = 89 mg/dL 70-110 2894871778) CREATININE (test code 1.01 mg/dL 0.6-1.25 = 5799426427) CALCIUM (test code = 8.8 mg/dL 8.6-10.6 7323097940) eGFR Calculation mL/min/1.73m2 (Non-) (test code = 1856780674) eGFR Calculation mL/min/1.73m2 () (test code = 8060483970) NELI (test code = NELI) Association of Glomerular Filtration Rate (GFR) and Staging of Kidney Disease* + -+ + ---+| GFR (mL/min/1.73 m2) ?| With Kidney Damage ?| ?Without Kidney Damage+ -------+ ------+ ---------+| ?>90 ?| ?Stage one ?| ? Normal ?+ --+ -+ ----+| ?60-89 ?| ?Stage two ?| ? Decreased GFR ? + -+ + ---+| ?30-59 ?| ?Stage three ?| ? Stage three ? + -+ + ---+| ?15-29 ?| ?Stage four ? | ? Stage four ?+ --+ -+ ----+| ?<15 (or dialysis) ? ?| ?Stage five ? | ? Stage five ?+ --+ -+ ----+ *Each stage assumes the associated GFR level has been in effect for at least three months. ?Stages 1 to 5, with or without kidney disease, indicate chronic kidney disease. Notes: Determination of stages one and two (with eGFR >59mL/min/1.73 m2) requires estimation of kidney damage for at least three months as defined by structural or functional abnormalities of the kidney, manifested by either:Pathological abnormalities or Markers of kidney damage (including abnormalities in the composition of the blood or urine or abnormalities in imaging tests). [facility] [place]48054[facility] (ALB,T.PRO,BILI T,BU/BC,ALT,AST,ALK PHOS)2019-09-17 02:44:00 Test Item Value Reference Range Interpretation Comments TOTAL BILI (test code = 1908518302) 2.2 mg/dL 0.1-1.1 H BILI UNCON (test code = 9954257621) 1.5 mg/dL 0.1-1.1 H BILI CONJ (test code = 7933974716) 0.0 mg/dL 0-0.3 T PROTEIN (test code = 5470209012) 7.2 g/dL 6.3-8.2 ALBUMIN (test code = 7435119109) 3.8 g/dL 3.5-5 ALK PHOS (test code = 3531274220) 163 U/L 34-122 H ALTv (test code = 1742-6) 39 U/L 5-50 AST(SGOT) (test code = 7481344679) 68 U/L 13-40 H Lab Interpretation (test code = Abnormal 67874-4) [facility] TylerMagnesium [id number] 02:44:00 Test Item Value Reference Range Interpretation Comments MAGNESIUM (test code = 5562867027) 1.9 mg/dL 1.7-2.4 Lab Interpretation (test code = Normal 59369-3) [facility] TylerPhosphorus [id number] 02:44:00 Test Item Value Reference Range Interpretation Comments PHOSPHORUS (test code = 6459398322) 3.6 mg/dL 2.5-5 Lab Interpretation (test code = Normal 23232-6) [facility] TylerProthrombin Time / [id number] 01:16:00 Test Item Value Reference Range Interpretation Comments PROTIME PATIENT (test See_Comment H [Auto mated message] code = 5964-2) The system wh ich generated this result transmitted ref erence range: 12.0 - 1 4.7 Seconds. The reference range was not used to int erpret this result as normal/abnormal . INR (test code = 6301-6) Nor mal INR <1.1; Warfarin Therap eutic range 2.0 to 3. 0 or 2.5 to 3.5, dep ending upon the indica tions. Lab Interpretation (test Abnormal code = 53177-6) [facility] TyleraPTT2020-05-14 01:15:00 Test Item Value Reference Range Interpretation Comments APTT Patient (test See_Comment [Automat ed code = 3173-2) message] The system which generated this result transmitted reference range : 23 - 38 Seconds . The reference range was not used to interpr et this result as normal/abnormal . NELI (test code = NELI) The [facility] patient population mean normal value for aPTT is 30 seconds. Lab Interpretation Normal (test code = 50168-3) [facility] TylerTroponin [id number] 01:14:00 Test Item Value Reference Range Interpretation Comments TROPONIN I (test 0.017 ng/mL See_Comment [Automated code = 9200534763) message] The system which generated this result transmitted reference range : <=0.034. The reference range was not used to interpret this result as normal/abnormal . NELI (test code = Equal or Less than NELI) 0.034 ng/ml---Normal ?Note: Cardiac troponin begins to rise 3-4 hours after the onset of ischemia. Repeat in 4-6 hours if the sample was drawn within 3-4 hours of the onset of the symptom and found normal. Between 0.035 and 0.120 ng/mL--- Borderline. Questionable myocardial injury or necrosis ? ?Note: Serial measurement may be necessary to confirm or exclude the diagnosis of myocardial injury or necrosis; Clinical correlation (symptoms, EKGs, imaging studies, and others) required; Repeat in 4-6 hours if clinically indicated. ? Equal or Higher than 0.121 ng/mL---Abnormal. Myocardial Injury or Necrosis Likely ? Biotin has been reported to cause a negative bias, interpret results relative to patient's use of biotin. ? Lab Interpretation Normal (test code = 80050-4) [facility] Tyler[facility]id Panel (Total Cholesterol, Triglycerides, HDL)2019-09-17 01:06:00 Test Item Value Reference Range Interpretation Comments CHOL (test code = 93 mg/dL 120-200 L 6326154553) HDL (test code = 19 mg/dL >40 L 3395108069) HDLC RATIO (test code = See_Comment [Au tomated message] 0574118846) The system [employer] generated this result transmitted ref erence range: <=5.0. T he reference range was not used to int erpret this result as normal/abnormal . TRIG (test code = 84 mg/dL 30-170 6724144714) LDL CHOL (test code = 57 mg/dL See_Comment [Auto mated message] 67849-2) The system whic h generated this result transmitted ref erence range: <=160. T he reference range was not used to int erpret this result as normal/abnormal . VLDL (test code = 17 mg/dL 5-60 5054790000) Lab Interpretation (test Abnormal code = 00239-1) [facility] WITH [id number] 00:36:00 Test Item Value Reference Range Interpretation Comments WBC (test code = See_Comment [Automated 6690-2) message] The sy stem which generated this result transmitted reference range : 4.20 - 10.70 10*3/?L. The reference range was not used to interpret this result as normal/abnormal . RBC (test code = See_Comment L [Automated 789-8) message] The sy stem which generated this result transmitted reference range : 4.26 - 5.52 10*6/?L. The reference range was not used to interpret this result as normal/abnormal . HGB (test code = 11.2 g/dL 12.2-16.4 L 718-7) HCT (test code = 37.5 % 38.4-49.3 L 4544-3) MCV (test code = 89.1 fL 81.7-95.6 787-2) MCH (test code = 26.6 pg 26.1-32.7 785-6) MCHC (test code = 29.9 g/dL 31.2-35 L 786-4) RDW-SD (test code = 54.5 fL 38.5-51.6 H 89657-7) RDW-CV (test code = 17.5 % 12.1-15.4 H 788-0) PLT (test code = See_Comment [Automated 777-3) message] The sy stem which generated this result transmitted reference range : 150 - 328 10*3/ ?L. The reference r minerva was not used to interpret this result as normal/abnormal . MPV (test code = 12.0 fL 9.8-13 15637-1) NRBC/100 WBC (test See_Comment [Automat ed code = 3157783542) message] The system which generated this result transmitted reference range : 0.0 - 10.0 /100 WBCs. The refer ence range was not u sed to interpret th is result as normal/abnormal . NRBC x10^3 (test code <0.01 See_Comment [Auto mated = 2162124017) message] The s ystem which generated this result transmitted reference range : 10*3/?L. The reference range was not used to interpret this result as normal/abnormal . GRAN MAT (NEUT) % 73.3 % (test code = 770-8) IMM GRAN % (test code 0.40 % = 4229338747) LYMPH % (test code = 20.3 % 736-9) MONO % (test code = 4.5 % 5905-5) EOS % (test code = 0.6 % 713-8) BASO % (test code = 0.9 % 706-2) GRAN MAT x10^3(ANC) 6.66 10*3/uL 1.99-6.95 (test code = 4484240718) IMM GRAN x10^3 (test 0.04 10*3/uL 0-0.06 code = 8761061499) LYMPH x10^3 (test code 1.84 10*3/uL 1.09-3.23 = 731-0) MONO x10^3 (test code 0.41 10*3/uL 0.36-1.02 = 742-7) EOS x10^3 (test code = 0.05 10*3/uL 0.06-0.53 L 711-2) BASO x10^3 (test code 0.08 10*3/uL 0.01-0.09 = 704-7) Lab Interpretation Abnormal (test code = 41784-4) [facility] TylerXR CHEST 2 [id number] 23:51:37 Borderline cardiomegaly, small right pleural effusion and mild centralpulmonary edema. PreliminaryReport Dictated by Resident: Araceli Nash MD., have reviewed this study andagree with the abovereport.XR CHEST 2 VW Comparison: 08/27/2019 History: sob Findings: The lungs arewell expanded and clear. Small right pleural effusion bluntsthe right costophrenic angle. Mild prominence of the central pulmonaryvessels is noted. No pneumothorax is identified. The cardiomediastinalsilhouette is upper normal in size. No acute osseous abnormality is present. [facility], Radiant Results Inft User - 09/16/2019 6:52 PM CDTXR CHEST 2 VWComparison: 08/27/2019History: sob Findings:The lungs are well expanded and clear. Small right pleural effusion bluntsthe right costophrenic angle. Mild prominence of the central pulmonaryvessels is noted. No pneumothorax is identified. The cardiomediastinal silhouette is upper normal in size. No acute osseous abnormality is present.IMPRESSIONBorderline cardiomegaly, small right pleural effusion and mild centralpulmonary edema. Preliminary Report Dictated by Resident: Dawn Chavira, Araceli Hutton MD., have reviewed this study and agree with the abovereport.[facility] TylerCT ABDOMEN PELVIS W [id number] 18:22:32CT Abdomen and Pelvis with intravenous contrast. CLINICAL HISTORY: Abdominal infection including coral tonitis. DOSE: Up-to-date CT equipment and radiation dose reduction techniques wereemployed. CTDIvol: 6.33 mGy. DLP: 3:15 mGy-cm. TECHNIQUE : Contiguous axial imaging from the level of the lung basesthrough the pubic symphysis were performed after the uncomplicatedadministration of Omnipaque contrastmaterial. Coronal and sagittalreconstructions were obtained. Auto mA and/or iterative reconstructionwereused to reduce radiation dose. FINDINGS: ? Lower lungs: Small right and minimal left pleural effusion. No pneumonia.No pericardial effusion. Short sliding hiatal hernia suspected. Liver, Gallbladder and Spleen: Liver is slightly enlarged, measuring 18 cmin length. Spleen is 9.8 x 5.4 cm. Enhancement of the liver parenchyma andsplenic trunk, is mostly in the arterial phase which is suboptimal.No calcified gallstones. Biliary ducts and the pancreatic duct appear ofnormal size. Peritoneum: Small volume ascites noted surrounding liver, spleen, in thepelvis. Pancreas and Adrenals: ?Unremarkable pancreas and adrenal glands. Kidneys and Ureters: No enhancing kidney lesions. Left kidney showedirregular shaped approximately 31 x 13 mm size stone (attenuation value ofmore than 1500 Hu) causing mild obstructive hydronephrosis. Congestion isseen in the periureteral fat on both sides which is nonspecificand couldbe secondary to liver disease. Vessels: Mild atherosclerosis. Note made of 2 left renal keon souleymane and oneright renal artery arising from the abdominal aorta. Retroperitoneum: No abnormal fluid or lymphadenopathy. Bowel: No acute findings. Bladder and Reproductive Organs: Urinary bladder is notopacified by theintravenously injected contrast medium. No gross abnormality seen in theunopacified urinary bladder. Bones: Mild lumbar dextroscoliosis, exaggerated lordosis with degenerativedisc disease at L3-L4 and multilevel facet arthritis. No compressiondeformity in the lower thoracic or lumbar vertebral bodies. Soft tissues: Small direct type left inguinal hernia containing fat.Congested abdomin al wall soft tissues could be due to compromised liverfunction and poor kidney function. CONCLUSION:1. Small volume ascites surrounding liver, spleen, in the paracolic gutterdown into the pelvis. Etiology is unknown but could be primary liverdisease. Please correlate.2. Irregular shaped staghorn calculus in the left kidney's collectingsystem causing minimal obstruction.3. Small right pleural effusionand minimal left pleural effusion. [facility], Radiant Results Inft User - 08/27/2019 1:23 PM CDTCT Abdomen and Pelvis with intravenous contrast.CLINICAL HISTORY: Abdominal infection including peritonitis.DOSE: Up-to-date CT equipment and radiation dose reduction techniques wereemployed. CTDIvol: 6.33 mGy. DLP: 3:15 mGy-cm.TECHNIQUE : Contiguous axial imaging from the level of the lung basesthrough the pubic symphysis were performed after the uncomplicatedadministration of Omnipaque contrast material. Coronal and sagittalreconstructions were obtained. Auto mA and/or iterative reconstruction wereused toreduce radiation dose.FINDINGS: Lower lungs: Small right and minimal left pleural effusion. No pneumonia.No pericardial effusion. Short sliding hiatal hernia suspected.Liver, Gallbladder and Spleen: Liver is slightly enlarged, measuring 18 cmin length. Spleen is 9.8 x 5.4 cm. Enhancement of the liverparenchyma andsplenic trunk, is mostly in the arterial phase which is suboptimal.No calcified gallstones. Biliary ducts and the pancreatic duct appear ofnormal size.Peritoneum: Small volume ascites noted surrounding liver, spleen, in thepelvis.Pancreas and Adrenals: Unremarkable pancreas and adrenal g lands.Kidneys and Ureters: No enhancing kidney lesions. Left kidney showedirregular shaped approximately 31 x 13 mm size stone (attenuation value ofmore than 1500 Hu) causing mild obstructive hydronephrosis. Congestion isseen in the periureteral fat on both sides which is nonspecific and couldbe secondary to liver disease.Vessels: Mild atherosclerosis. 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 No gross abnormality seen in theunopacified urinary bladder.Bones:Mild lumbar dextroscoliosis, exaggerated lordosis with degenerativedisc disease at L3-L4 and multilevel facet arthritis. No compressiondeformity in the lower thoracic or lumbar vertebral bodies.Soft tissues: Small direct type left inguinal hernia containing fat.Congested abdominal wall soft tissues could be due to compromised liverfunction and poor kidney function.CONCLUSION:1. Small volume ascites surrounding liver, spleen, in the paracolic gutterdown into the pelvis. Etiology is unknown but could be primary liverdisease. Please correlate.2. Irregular shaped staghorn calculus in the left kidney's collectingsystem causing minimal obstruction.3. Small right pleural effusion and minimal left pleuraleffusion.[facility] TylerETHANOL2020-04-23 17:33:00 Test Item Value Reference Range Interpretation Comments ALCOHOL (test code = <10 mg/dL 0808148211) NELI (test code = NELI) <10 Sphunzen98-638 Toxic>100 Depression of [employer]>400 Fatalities Reported [facility] TylerTHYROID STIMULATING [id number] 16:58:00 Test Item Value Reference Range Interpretation Comments TSH (test code = See_Comment [Automated message] 2725550688) The system [employer] generated this result transmitted ref erence range: 0.45 - 4 .70 mIU/L. The refe rence range was not u sed to interpret this result as normal/abnor mal. Lab Interpretation (test Normal code = 95095-4) [facility] TylerFREE [id number] 16:44:00 Test Item Value Reference Range Interpretation Comments FREE T4 (test code = 8438918628) 1.79 ng/dL 0.78-2.2 Lab Interpretation (test code = Normal 71456-7) [facility] TylerUrinalysis2020-04-23 16:27:00 Test Item Value Reference Range Interpretation Comments APPEARANCE (test code = Clear Clear 2291275588) COLOR (test code = Yellow Yellow 0824230776) PH (test code = 4.8-8.0 6058992346) SP GRAVITY (test code = 1.003-1.030 9680441120) GLU U QUAL (test code = Normal Normal 3577984827) BLOOD (test code = Negative Negative INTERFERE NCE FROM 8362379920) ASCORBIC ACID M AY CAUSE FALSE NEG ATIVE RESULT KETONES (test code = 5 mg/dL Negative A 2541272602) PROTEIN (test code = Negative Negative 2887-8) UROBILIN (test code = 4.0 mg/dL Normal A 0733718893) BILIRUBIN (test code = Negative Negative 5936470838) NITRITE (test code = Negative Negative 1549044851) LEUK ALLEN (test code = Negative Negative 9779562364) RBC/HPF (test code = See_Comment [Autom ated message] 2257566656) The system [employer] generated this result transmitted ref erence range: 0 - 3 HP F. The reference range was not used to int erpret this result as normal/abnormal . WBC/HPF (test code = See_Comment H [Autom ated message] 9038687245) The system [employer] generated this result transmitted ref erence range: 0 - 5 HP F. The reference range was not used to int erpret this result as normal/abnormal . BACTERIA (test code = Negative Negative 4534405624) MUCOUS (test code = Moderate Negative LPF A 6577059405) Lab Interpretation Abnormal (test code = 19363-5) [facility] / [facility] - DRUG SCREEN [id number] 16:25:00 Test Item Value Reference Range Interpretation Comments BENZO U (test code = Negative Negative 5732875432) GENIE U (test code = Negative Negative 0481654193) AMPHET (test code = Negative Negative 7196714713) THC (test code = Negative Negative 7678375519) METHADONE (test code = Negative Negative 6963826340) Meth U (test code = Negative Negative 2365282218) OPIATES (test code = Negative Negative 1015751287) Cocaine Metabolite (test Negative Negative code = 9938196193) PROPOXY (test code = Negative Negative 9105570290) Tric U (test code = Negative Negative 8288575062) PCP (test code = Negative Negative 0725899521) OXYCOD (test code = Negative Negative 7987272252) NELI (test code = NELI) Urine Drug Cutoff Ranges Benzodiazepines: ? ? 150 ng/mLBarbiturates: ?200 ng/mLAmphetamine: ? 500 ng/mLCannabinoids: ?50 ?ng/mLMethadone: ? 200 ng/mLMethamphetamine: ? ? 500 ng/mL Opiates: ? 100 ng/mL or 2000 ng/mLCocaine: ? 150 ng/mLPropoxyphene: ?300 ng/mLTricyclics: ?300 ng/mLOxycodone: ? 100 ng/mLPCP: ? 25 ?ng/mL The results are to be used only for medical (i.e., treatment) purposes. Unconfirmed screening results must not be used for non-medical purposes (e.g., employment testing, legal testing). Lab Interpretation (test Normal code = 22245-1) [facility] WITH [id number] 16:24:00 Test Item Value Reference Range Interpretation Comments WBC (test code = See_Comment [Automated 4950-2) message] The sy stem which generated this result transmitted reference range : 4.20 - 10.70 10*3/?L. The reference range was not used to interpret this result as normal/abnormal . RBC (test code = See_Comment [Automated 583-8) message] The sy stem which generated this result transmitted reference range : 4.26 - 5.52 10*6/?L. The reference range was not used to interpret this result as normal/abnormal . HGB (test code = 11.6 g/dL 12.2-16.4 L 718-7) HCT (test code = 37.7 % 38.4-49.3 L 4544-3) MCV (test code = 87.3 fL 81.7-95.6 787-2) MCH (test code = 26.9 pg 26.1-32.7 785-6) MCHC (test code = 30.8 g/dL 31.2-35 L 786-4) RDW-SD (test code = 52.7 fL 38.5-51.6 H 40600-7) RDW-CV (test code = 16.3 % 12.1-15.4 H 788-0) PLT (test code = See_Comment [Automated 777-3) message] The sy stem which generated this result transmitted reference range : 150 - 328 10*3/ ?L. The reference r minerva was not used to interpret this result as normal/abnormal . MPV (test code = 11.6 fL 9.8-13 01120-3) IPF % (test code = 4.4 % 1.2-10.7 Platelet count 0943542306) measured by fluorescence method. NRBC/100 WBC (test See_Comment [Automat ed code = 3306108894) message] The system which generated this result transmitted reference range : 0.0 - 10.0 /100 WBCs. The refer ence range was not u sed to interpret th is result as normal/abnormal . NRBC x10^3 (test code <0.01 See_Comment [Auto mated = 1648405678) message] The s ystem which generated this result transmitted reference range : 10*3/?L. The reference range was not used to interpret this result as normal/abnormal . GRAN MAT (NEUT) % 65.8 % (test code = 770-8) IMM GRAN % (test code 0.40 % = 4994905749) LYMPH % (test code = 24.4 % 736-9) MONO % (test code = 7.6 % 5905-5) EOS % (test code = 0.7 % 713-8) BASO % (test code = 1.1 % 706-2) GRAN MAT x10^3(ANC) 5.65 10*3/uL 1.99-6.95 (test code = 2655305455) IMM GRAN x10^3 (test 0.03 10*3/uL 0-0.06 code = 7781587644) LYMPH x10^3 (test code 2.09 10*3/uL 1.09-3.23 = 731-0) MONO x10^3 (test code 0.65 10*3/uL 0.36-1.02 = 742-7) EOS x10^3 (test code = 0.06 10*3/uL 0.06-0.53 711-2) BASO x10^3 (test code 0.09 10*3/uL 0.01-0.09 = 704-7) Lab Interpretation Abnormal (test code = 18501-7) [facility] [id number] 16:13:00 Test Item Value Reference Range Interpretation Comments TROPONIN I (test <0.012 See_Comment [Automated code = 8306451429) message] The system which generated this result transmitted reference range : <=0.034 ng/mL. The reference range was not used to interpr et this result as normal/abnormal . NELI (test code = Equal or Less than NELI) 0.034 ng/ml---Normal ?Note: Cardiac troponin begins to rise 3-4 hours after the onset of ischemia. Repeat in 4-6 hours if the sample was drawn within 3-4 hours of the onset of the symptom and found normal. Between 0.035 and 0.120 ng/mL--- Borderline. Questionable myocardial injury or necrosis ? ?Note: Serial measurement may be necessary to confirm or exclude the diagnosis of myocardial injury or necrosis; Clinical correlation (symptoms, EKGs, imaging studies, and others) required; Repeat in 4-6 hours if clinically indicated. ? Equal or Higher than 0.121 ng/mL---Abnormal. Myocardial Injury or Necrosis Likely ? Biotin has been reported to cause a negative bias, interpret results relative to patient's use of biotin. ? Lab Interpretation Normal (test code = 88071-6) [facility]-TERMINAL [id number] 16:10:00 Test Item Value Reference Range Interpretation Comments NT-proBNP (test code 7100 pg/mL See_Comment H [Autom ated = 8440338768) message] The system which generated this result transmitted reference range : <=125. The reference range was not used to interpret this result as normal/abnormal . NELI (test code = NELI) Biotin has been reported to cause a negative bias, interpret results relative to patient's use of biotin. Lab Interpretation Abnormal (test code = 27134-6) [facility] TylerProthrombin Time (PT) / [id number] 16:05:00 Test Item Value Reference Range Interpretation Comments PROTIME PATIENT (test See_Comment H [Auto mated message] code = 5964-2) The system wh ich generated this result transmitted ref erence range: 12.0 - 1 4.7 Seconds. The reference range was not used to int erpret this result as normal/abnormal . INR (test code = 6301-6) Nor mal INR <1.1; Warfarin Therap eutic range 2.0 to 3. 0 or 2.5 to 3.5, dep ending upon the indica tions. Lab Interpretation (test Abnormal code = 19869-3) [facility]2020-04[facility]23 16:04:00 Test Item Value Reference Range Interpretation Comments APTT Patient (test See_Comment [Automat ed code = 3173-2) message] The system which generated this result transmitted reference range : 23 - 38 Seconds . The reference range was not used to interpr et this result as normal/abnormal . NELI (test code = NELI) The [facility] patient population mean normal value for aPTT is 30 seconds. Lab Interpretation Normal (test code = 02007-5) [facility] Tyler[facility] CHEST 1 [id number] 16:03:50HISTORY: Cough. TECHNIQUE: Portable AP erect view of the chest is obtained. Comparison ismade with 08/20/2019 study. FINDINGS: Mild cardiomegaly noted with minimal congestion in the rightlower lung, slightly improved. No pneumonia. No pneumothorax or pleuraleffusion. CONCLUSIONS: Slightly improved minimal congestion and pleural reaction inthe right lung base since 08/20/2019 study.[facility], Radiant ResultsInft User - 08/27/2019 11:04 AM CDTHISTORY: Cough.TECHNIQUE: Portable AP erect view of the chest is obtained. Comparison ismade with 08/20/2019 study.FINDINGS: Mild cardiomegaly noted with minimal congestion in the rightlower lung, slightly improved. No pneumonia. No pneumothorax or pleuraleffusion.CONCLUSIONS: Slightly improved minimal congestion and pleural reaction inthe right lung base since 08/20/2019 study. [facility] Tyler[facility] Metabolic Panel (NA, K, CL, CO2, GLUCOSE, BUN, CREATININE, CA)2019-08-27 16:01:00 Test Item Value Reference Range Interpretation Comments NA (test code = 138 mmol/L 135-145 9625277527) K (test code = 4.9 mmol/L 3.5-5 4814433678) CL (test code = 109 mmol/L 98-108 H 0982933884) CO2 TOTAL (test code = 20 mmol/L 23-31 L 2384524948) AGAP (test code = 2-16 4149370451) BUN (test code = 21 mg/dL 7-23 5941591046) GLUCOSE (test code = 103 mg/dL 70-110 7099861653) CREATININE (test code = 0.89 mg/dL 0.6-1.25 9747375659) CALCIUM (test code = 8.9 mg/dL 8.6-10.6 7754967225) eGFR Calculation mL/min/1.73m2 (Non-) (test code = 9416882919) eGFR Calculation mL/min/1.73m2 () (test code = 8207960860) NELI (test code = NELI) Association of Glomerular Filtration Rate (GFR) and Staging of Kidney Disease* + --+ --+ ------+| GFR (mL/min/1.73 m2) ?| With Kidney Damage ?| ?Without Kidney Damage+ --------+ --------+ +| ?>90 ?| ?Stage one ?| ? Normal ?+ ---+ ---+ -------+| ?60-89 ?| ?Stage two ?| ? Decreased GFR ? + --+ --+ ------+| ?30-59 ?| ?Stage three ?| ? Stage three ? + --+ --+ ------+| ?15-29 ?| ?Stage four ? | ? Stage four ?+ ---+ ---+ -------+| ?<15 (or dialysis) ? ?| ?Stage five ? | ? Stage five ?+ ---+ ---+ -------+ *Each stage assumes the associated GFR level has been in effect for at least three months. ?Stages 1 to 5, with or without kidney disease, indicate chronic kidney disease. Notes: Determination of stages one and two (with eGFR >59mL/min/1.73 m2) requires estimation of kidney damage for at least three months as defined by structural or functional abnormalities of the kidney, manifested by either:Pathological abnormalities or Markers of kidney damage (including abnormalities in the composition of the blood or urine or abnormalities in imaging tests). Lab Interpretation Abnormal (test code = 52484-4) [facility] Tyler[facility] Function [facility] (ALB, T.PRO, BILI T, BU/BC, ALT, AST, ALK PHOS)2019-08-27 16:01:00 Test Item Value Reference Range Interpretation Comments TOTAL BILI (test code = 8841946217) 2.3 mg/dL 0.1-1.1 H BILI UNCON (test code = 2024453468) 2.0 mg/dL 0.1-1.1 H BILI CONJ (test code = 3007616557) 0.0 mg/dL 0-0.3 T PROTEIN (test code = 2041528323) 6.3 g/dL 6.3-8.2 ALBUMIN (test code = 5328425204) 3.3 g/dL 3.5-5 L ALK PHOS (test code = 9226488600) 136 U/L 34-122 H ALTv (test code = 1742-6) 61 U/L 5-50 H AST(SGOT) (test code = 6570045833) 68 U/L 13-40 H Lab Interpretation (test code = Abnormal 71011-1) [facility] TylerCREATINE [id number] 16:01:00 Test Item Value Reference Range Interpretation Comments CK (test code = 2314433236) 58 U/L 33-194 Lab Interpretation (test code = Normal 98314-9) [facility] TylerMAGNESIUM2020-04-23 16:01:00 Test Item Value Reference Range Interpretation Comments MAGNESIUM (test code = 3879662372) 1.9 mg/dL 1.7-2.4 Lab Interpretation (test code = Normal 03269-3) [facility] TylerNM MYOCARDIUM PERFUSION STRESS AND REST 2019-08-21 20:50:261. ?The patient's electrocardiogram is nonischemic.2. ?The patient's clinical response is asymptomatic for angina. 3. ?Overall left ventricular systolic function is severely reduced. Theleft ventricular ejection fraction is calculated to be 23 %.4. ?SPECT imaging reveals large size, severe degree fixed defect in apicalanterior, apical septal, apical inferior, apical, mid anterior wallsegments. 5. ?Noreversible defect noted. I was present for the stress portion of the study. [facility] Lexiscan Stress Test Report PROCEDURE:After obtaining witnessed informed consent , patient underwent a Regadenosonnuclear stress test using a one-day protocol. The patient was administered0.4 mg. Regadenoson over 10 seconds intravenously. Myocardial perfusionSPECT imaging was performed at rest after the intravenous injection of 16.4 mCi of Technetium 99m Tetrofosmin. During the stress portion of the test48.5 mCi of Technetium 99m Tetrofosmin was injected intravenously at 10seconds after the Regadenoson infusion at peak pharmacologic effect. Thestress gated SPECT study was acquired. Both stress and rest images wereacquired with patient being supine. Images were processed according to ASNguidelines. Short, horizontal long, long axis slices, raw data cines, polarplot, and wall motion analysis were reviewed. FINDINGS:* ?During the Regadenoson administration, no symptoms were noted. * ?Please refer ECG report for full details. * ?The overall technical quality of the study is good. ?* ?Raw cine data reveals no significant abnormality. * ?SPECT imaging reveals large size, severedegree reduced uptake ofradiopharmaceutical agents ?apical anterior, apical septal, apicalinferior, a pical, mid anterior wall segments in both stress images and restimages. * ?Rest of the SPECT imagingreveals normal uptake of radiopharmaceuticalagents in all of wall segments in both stress and rest images. * ?Post-stress LV end-diastolic volume is 145 ml and LV end-systolic volumeis 112 ml. * ?The left ventricle ejection fraction is calculated to be 23 %. * ?Regional wall motion analysis of the left ventricle reveals severeglobal hypokinesis. * ?TID: 1.09 [facility], Radiant Results Inft User - 08/21/2019 3:51 PM CDTPrisma [facility] Hospitaluclear Lexiscan Stress Test ReportPROCEDURE:After obtaining witnessed informed consent, patient underwent a Regadenosonnuclear stress test using a one-dayprotocol. The patient was administered0.4 mg. Regadenoson over 10 seconds intravenously. Myocardial perfusionSPECT imaging was performed at rest after the intravenous injection of 16.4 mCi of Technetium 99m Tetrofosmin. During the stress portion of the test48.5 mCi of Technetium 99m Tetrofosmin was injected intravenously at 10seconds after the Regadenoson infusion at peak pharmacologic effect. Thestress gated SPECT study was acquired. Both stress and rest images wereacquired with patient being supine. Images were processed according to ASNguidelines. Short, horizontal long, long axis slices, raw data cines, polarplot, and wall motion analysis were reviewed. FINDINGS:* During the Regadenoson administration, no symptoms were noted. * Please refer ECG report for full details. * The overall technical quality of the study is good. * Raw cine data reveals no significant abnormality. * SPECT imaging reveals large size, severe degree reduced uptake ofradiopharmaceutical agents apical anterior, apical septal, apicalinferior, apical, mid anterior wall segments in both stress images and restimages. * Rest of the SPECT imaging reveals normal uptake of radiopharmaceuticalagents in all of wall segments in both stress and rest images. * Post-stress LV end-diastolic volume is 145 ml and LV end-syst olic volumeis 112 ml. * The left ventricle ejection fraction is calculated to be 23 %. * Regional wall motion analysis of the left ventricle reveals severeglobal hypokinesis. * TID: [id number]. The patient's electrocardiogram is nonischemic.2. The patient's clinical response is asymptomatic for angina. 3. Overall left ventricular systolic function is severely reduced. Theleft ventricular ejection fraction is calculated to be 23 %.4. SPECT imaging reveals large size, severe degree fixed defect in apicalanterior, apical septal, apical inferior, apical, mid anterior wallsegments. 5. No reversible defect noted. I was present for the stress portion of the study.[facility] BranchL[facility] (58896)(TOTAL CHOLESTEROL, TRIGLYCERIDES, HDL)2019-08-20 23:33:00 Test Item Value Reference Range Interpretation Comments CHOL (test code = 111 mg/dL 120-200 L 0775978876) HDL (test code = 19 mg/dL >40 L 0630862126) HDLC RATIO (test code = See_Comment H [Au tomated message] 7445922531) The system [employer] generated this result transmit sb reference range : <=5.0. The refe rence range was not u sed to interpret th is result as normal/abnormal . TRIG (test code = 65 mg/dL 30-170 9296626379) LDL CHOL (test code = 79 mg/dL See_Comment [Auto mated message] 05214-7) The system [employer] generated this result transmit sb reference range : <=160. The refe rence range was not u sed to interpret th is result as normal/abnormal . VLDL (test code = 13 mg/dL 5-60 6310997170) Lab Interpretation (test Abnormal code = 98157-2) [facility] [id number] 22:37:00 Test Item Value Reference Range Interpretation Comments TROPONIN I (test <0.012 See_Comment [Automated code = 6843278617) message] The system which generated this result transmitted reference range : <=0.034 ng/mL. The reference range was not used to interpr et this result as normal/abnormal . NELI (test code = Equal or Less than NELI) 0.034 ng/ml---Normal ?Note: Cardiac troponin begins to rise 3-4 hours after the onset of ischemia. Repeat in 4-6 hours if the sample was drawn within 3-4 hours of the onset of the symptom and found normal. Between 0.035 and 0.120 ng/mL--- Borderline. Questionable myocardial injury or necrosis ? ?Note: Serial measurement may be necessary to confirm or exclude the diagnosis of myocardial injury or necrosis; Clinical correlation (symptoms, EKGs, imaging studies, and others) required; Repeat in 4-6 hours if clinically indicated. ? Equal or Higher than 0.121 ng/mL---Abnormal. Myocardial Injury or Necrosis Likely ? Biotin has been reported to cause a negative bias, interpret results relative to patient's use of biotin. ? Lab Interpretation Normal (test code = 97764-1) [facility] [id number] 19:04:00 Test Item Value Reference Range Interpretation Comments TROPONIN I (test 0.006 ng/mL See_Comment [Automated code = 1654114660) message] The system which generated this result transmitted reference range : <=0.034. The reference range was not used to interpret this result as normal/abnormal . NELI (test code = Equal or Less than NELI) 0.034 ng/ml---Normal ?Note: Cardiac troponin begins to rise 3-4 hours after the onset of ischemia. Repeat in 4-6 hours if the sample was drawn within 3-4 hours of the onset of the symptom and found normal. Between 0.035 and 0.120 ng/mL--- Borderline. Questionable myocardial injury or necrosis ? ?Note: Serial measurement may be necessary to confirm or exclude the diagnosis of myocardial injury or necrosis; Clinical correlation (symptoms, EKGs, imaging studies, and others) required; Repeat in 4-6 hours if clinically indicated. ? Equal or Higher than 0.121 ng/mL---Abnormal. Myocardial Injury or Necrosis Likely ? Biotin has been reported to cause a negative bias, interpret results relative to patient's use of biotin. ? Lab Interpretation Normal (test code = 54249-8) [facility] TylerGLYCOSYLATED HEMOGLOBIN (A1C)2019-08-20 18:18:00 Test Item Value Reference Interpretation Comments Range HGB A1C (test code = See_Comment [Autom ated 4548-4) message] The system which generated this result transmitted reference range : 4.0 - 6.0 % NGSP. The reference range was not used to interpret this result as normal/abnormal . NELI (test code = %A1C (NGSP) NELI) Interpretation (ADA)4.8-5.6 ? ? Normal or (Non-Diabetic Range)5.7-6.4 ? ? Increased Risk (Pre-Diabetic)>6.5 ?Diabetes Indicated Lab Interpretation Normal (test code = 73355-9) [facility] [id number] 15:38:00 Test Item Value Reference Range Interpretation Comments BENZO U (test code = Negative Negative 2654568548) GENIE U (test code = Negative Negative 0496860389) AMPHET (test code = Negative Negative 7799804302) THC (test code = Presumptive Negative A Confirmatio n of 8790330678) Positive Presumptive Positive THC result requires physician order . METHADONE (test code Negative Negative = 6799905803) Meth U (test code = Negative Negative 5117814195) OPIATES (test code = Negative Negative 3160340621) Cocaine Metabolite Negative Negative (test code = 2850396025) PROPOXY (test code = Negative Negative 3229290956) Tric U (test code = Negative Negative 8964121623) PCP (test code = Negative Negative 1262779984) OXYCOD (test code = Negative Negative 6541121119) NELI (test code = Urine Drug Cutoff NELI) Ranges Benzodiazepines: ? ? 150 ng/mLBarbiturates : ?200 ng/mLAmphetamine: ? 500 ng/mLCannabinoids : ?50 ?ng/mLMethadone: ? 200 ng/mLMethamphetam ine: ? ? 500 ng/mL Opiates: ? 100 ng/mL or 2000 ng/mLCocaine: ? 150 ng/mLPropoxyphene : ?300 ng/mLTricyclics: ?300 ng/mLOxycodone: ? 100 ng/mLPCP: ? 25 ?ng/mL The results are to be used only for medical (i.e., treatment) purposes. Unconfirmed screening results must not be used for non-medical purposes (e.g., employment testing, legal testing). Lab Interpretation Abnormal (test code = 32173-5) [facility] TylerUrinalysis2020-04-16 15:24:00 Test Item Value Reference Range Interpretation Comments APPEARANCE (test code = Hazy Clear A 8840238515) COLOR (test code = Yellow Yellow 6753411790) PH (test code = 4.8-8.0 4230302916) SP GRAVITY (test code = 1.003-1.030 6771226986) GLU U QUAL (test code = Normal Normal 9185676339) BLOOD (test code = Negative Negative 6910113353) KETONES (test code = Negative Negative 7558912567) PROTEIN (test code = 30 mg/dL Negative A 2887-8) UROBILIN (test code = 4.0 mg/dL Normal A 3294503867) BILIRUBIN (test code = Negative Negative 5238098237) NITRITE (test code = Negative Negative 9925599136) LEUK ALLEN (test code = Negative Negative 3702448375) RBC/HPF (test code = See_Comment [Autom ated message] 0145856443) The system [employer] generated this result transmit sb reference range : 0 - 3 HPF. The refe rence range was not u sed to interpret th is result as normal/abnormal . WBC/HPF (test code = See_Comment [Autom ated message] 4447687719) The system [employer] generated this result transmit sb reference range : 0 - 5 HPF. The refe rence range was not u sed to interpret th is result as normal/abnormal . BACTERIA (test code = Negative Negative 9766520056) MUCOUS (test code = Moderate Negative LPF A 7863943603) HYAL CAST (test code = See_Comment [Aut omated message] 5617506404) The system [employer] generated this result transmit sb reference range : <=2 LPF. The refere nce range was not u sed to interpret th is result as normal/abnormal . Lab Interpretation (test Abnormal code = 73322-9) [facility] (NA, K, CL, CO2, GLUCOSE, BUN, CREATININE, CA)2019-08-20 14:12:00 Test Item Value Reference Range Interpretation Comments NA (test code = 141 mmol/L 135-145 5433963047) K (test code = 4.3 mmol/L 3.5-5 5657388915) CL (test code = 110 mmol/L 98-108 H 2593727229) CO2 TOTAL (test code = 21 mmol/L 23-31 L 0902897854) AGAP (test code = 2-16 2696422459) BUN (test code = 21 mg/dL 7-23 7145260574) GLUCOSE (test code = 88 mg/dL 70-110 5648769432) CREATININE (test code = 0.97 mg/dL 0.6-1.25 3286134435) CALCIUM (test code = 9.0 mg/dL 8.6-10.6 1410745201) eGFR Calculation mL/min/1.73m2 (Non-) (test code = 8316898386) eGFR Calculation mL/min/1.73m2 () (test code = 0898666323) NELI (test code = NELI) Association of Glomerular Filtration Rate (GFR) and Staging of Kidney Disease* + --+ --+ ------+| GFR (mL/min/1.73 m2) ?| With Kidney Damage ?| ?Without Kidney Damage+ --------+ --------+ +| ?>90 ?| ?Stage one ?| ? Normal ?+ ---+ ---+ -------+| ?60-89 ?| ?Stage two ?| ? Decreased GFR ? + --+ --+ ------+| ?30-59 ?| ?Stage three ?| ? Stage three ? + --+ --+ ------+| ?15-29 ?| ?Stage four ? | ? Stage four ?+ ---+ ---+ -------+| ?<15 (or dialysis) ? ?| ?Stage five ? | ? Stage five ?+ ---+ ---+ -------+ *Each stage assumes the associated GFR level has been in effect for at least three months. ?Stages 1 to 5, with or without kidney disease, indicate chronic kidney disease. Notes: Determination of stages one and two (with eGFR >59mL/min/1.73 m2) requires estimation of kidney damage for at least three months as defined by structural or functional abnormalities of the kidney, manifested by either:Pathological abnormalities or Markers of kidney damage (including abnormalities in the composition of the blood or urine or abnormalities in imaging tests). Lab Interpretation Abnormal (test code = 86695-6) [facility] TylerEdwin [id number] 14:12:00 Test Item Value Reference Range Interpretation Comments TROPONIN I (test 0.014 ng/mL See_Comment [Automated code = 4838975701) message] The system which generated this result transmitted reference range : <=0.034. The reference range was not used to interpret this result as normal/abnormal . NELI (test code = Equal or Less than NELI) 0.034 ng/ml---Normal ?Note: Cardiac troponin begins to rise 3-4 hours after the onset of ischemia. Repeat in 4-6 hours if the sample was drawn within 3-4 hours of the onset of the symptom and found normal. Between 0.035 and 0.120 ng/mL--- Borderline. Questionable myocardial injury or necrosis ? ?Note: Serial measurement may be necessary to confirm or exclude the diagnosis of myocardial injury or necrosis; Clinical correlation (symptoms, EKGs, imaging studies, and others) required; Repeat in 4-6 hours if clinically indicated. ? Equal or Higher than 0.121 ng/mL---Abnormal. Myocardial Injury or Necrosis Likely ? Biotin has been reported to cause a negative bias, interpret results relative to patient's use of biotin. ? Lab Interpretation Normal (test code = 72566-3) [facility] TylerN-TERMINAL [id number] 14:08:00 Test Item Value Reference Range Interpretation Comments NT-proBNP (test code 8290 pg/mL See_Comment H [Autom ated = 8043126681) message] The system which generated this result transmitted reference range : <=125. The reference range was not used to interpret this result as normal/abnormal . NELI (test code = NELI) Biotin has been reported to cause a negative bias, interpret results relative to patient's use of biotin. Lab Interpretation Abnormal (test code = 01945-3) [facility] COVID-19 [id number] 14:05:00 Test Item Value Reference Range Interpretation Comments SARS-CoV-2 (test code = Not Detected Not Detected 45761-3) NELI (test code = NELI) ID NOW COVID-19 Assay is an isothermal nucleic acid amplification test intended for the qualitative detection of nucleic acid from SARS-CoV-2 viral RNA in nasopharyngeal ([employer]) specimens. It is used under Emergency Use Authorization (EUA) by FDA. The limit of detection (LOD) of the assay is 125 Genome Equivalents/mL. A positive result is indicative of the presence of SARS-CoV-2 RNA. ?Clinical correlation with patient history and other diagnostic information is necessary to determine patient infection status. A negative (Not Detected) result does not preclude SARS-CoV-2 infection. Clinical correlation with patient history and other diagnostic information should be used in patient management decisions. Invalid: Please collect a new specimen for repeat patient testing if clinically indicated. Lab Interpretation Normal (test code = 67451-8) [facility] (ALB, T.PRO, BILI T, BU/BC, ALT, AST, ALK PHOS)2019-08-20 14:01:00 Test Item Value Reference Range Interpretation Comments TOTAL BILI (test code = 2937304486) 1.1 mg/dL 0.1-1.1 BILI UNCON (test code = 0865405577) 1.1 mg/dL 0.1-1.1 BILI CONJ (test code = 8168703816) 0.0 mg/dL 0-0.3 T PROTEIN (test code = 5158996763) 6.7 g/dL 6.3-8.2 ALBUMIN (test code = 6960567680) 3.7 g/dL 3.5-5 ALK PHOS (test code = 9174041958) 156 U/L 34-122 H ALTv (test code = 1742-6) 85 U/L 5-50 H AST(SGOT) (test code = 0250080718) 47 U/L 13-40 H Lab Interpretation (test code = Abnormal 95204-1) [facility] TylerLipase [id number] 14:01:00 Test Item Value Reference Range Interpretation Comments LIPASE (test code = 2080922678) 49 U/L 0-220 Lab Interpretation (test code = Normal 02829-9) [facility]2020-04-16 13:55:00 Test Item Value Reference Range Interpretation Comments APTT Patient (test See_Comment [Automat ed code = 3173-2) message] The system which generated this result transmitted reference range : 23 - 38 Seconds . The reference range was not used to interpr et this result as normal/abnormal . NELI (test code = NELI) The [facility] patient population mean normal value for aPTT is 30 seconds. Lab Interpretation Normal (test code = 14552-1) [facility] TylerProthrombin Time (PT) / [id number] 13:53:00 Test Item Value Reference Range Interpretation Comments PROTIME PATIENT (test See_Comment H [Auto mated message] code = 5964-2) The system wh ich generated this result transmitted ref erence range: 12.0 - 1 4.7 Seconds. The reference range was not used to int erpret this result as normal/abnormal . INR (test code = 6301-6) Nor mal INR <1.1; Warfarin Therap eutic range 2.0 to 3. 0 or 2.5 to 3.5, dep ending upon the indica tions. Lab Interpretation (test Abnormal code = 61836-3) [facility]XR CHEST 1 [id number] 13:47:00HISTORY: Cough. TECHNIQUE: Portable AP erect view of the chest is obtained. No prior cheststudy available for comparison. FINDINGS: No acute pneumonia. Minimal congestion noted in the right lowerlung with pleural reaction blunting the lateral right costophrenic sinus.Mild cardiomegaly noted. No pleural effusion or pneumothorax. CONCLUSIONS:1. Minimal congestion in the right lower lung with pleural reaction.Findings could be due to nonspecific lateral infection.2. Mild cardiomegaly.Memb, Radiant Results Inft User - 08/20/2019 8:48 AM CDTHISTORY: Cough.TECHNIQUE: Portable AP erect view of the chest is obtained. No prior cheststudy available for comparison.FINDINGS: No acute pneumonia. Minimal conges tion noted in the right lowerlung with pleural reaction blunting the lateral right costophrenic sinus.Mild cardiomegaly noted. No pleural effusion or pneumothorax.CONCLUSIONS:1. Minimal congestion in the right lower lung with pleural reaction.Findings could be due to nonspecific lateral infection.2. Mild cardiomegaly.[facility] TylerCBC WITH [id number] 13:39:00 Test Item Value Reference Range Interpretation Comments WBC (test code = See_Comment [Automated 2590-2) message] The sy stem which generated this result transmitted reference range : 4.20 - 10.70 10*3/?L. The reference range was not used to interpret this result as normal/abnormal . RBC (test code = See_Comment L [Automated 419-8) message] The sy stem which generated this result transmitted reference range : 4.26 - 5.52 10*6/?L. The reference range was not used to interpret this result as normal/abnormal . HGB (test code = 11.2 g/dL 12.2-16.4 L 718-7) HCT (test code = 36.5 % 38.4-49.3 L 4544-3) MCV (test code = 90.6 fL 81.7-95.6 787-2) MCH (test code = 27.8 pg 26.1-32.7 785-6) MCHC (test code = 30.7 g/dL 31.2-35 L 786-4) RDW-SD (test code = 56.0 fL 38.5-51.6 H 47331-1) RDW-CV (test code = 16.7 % 12.1-15.4 H 788-0) PLT (test code = See_Comment H [Automated 777-3) message] The sy stem which generated this result transmitted reference range : 150 - 328 10*3/ ?L. The reference r minerva was not used to interpret this result as normal/abnormal . MPV (test code = 11.0 fL 9.8-13 28808-2) NRBC/100 WBC (test See_Comment [Automat ed code = 0238284006) message] The system which generated this result transmitted reference range : 0.0 - 10.0 /100 WBCs. The refer ence range was not u sed to interpret th is result as normal/abnormal . NRBC x10^3 (test code <0.01 See_Comment [Auto mated = 5384386297) message] The s ystem which generated this result transmitted reference range : 10*3/?L. The reference range was not used to interpret this result as normal/abnormal . GRAN MAT (NEUT) % 61.3 % (test code = 770-8) IMM GRAN % (test code 0.30 % = 0526486308) LYMPH % (test code = 30.2 % 736-9) MONO % (test code = 5.5 % 5905-5) EOS % (test code = 1.2 % 713-8) BASO % (test code = 1.5 % 706-2) GRAN MAT x10^3(ANC) 5.31 10*3/uL 1.99-6.95 (test code = 8201559797) IMM GRAN x10^3 (test 0.03 10*3/uL 0-0.06 code = 3546006529) LYMPH x10^3 (test code 2.62 10*3/uL 1.09-3.23 = 731-0) MONO x10^3 (test code 0.48 10*3/uL 0.36-1.02 = 742-7) EOS x10^3 (test code = 0.10 10*3/uL 0.06-0.53 711-2) BASO x10^3 (test code 0.13 10*3/uL 0.01-0.09 H = 704-7) Lab Interpretation Abnormal (test code = 11069-1) [facility] TylerCOMPREHENSIVE METABOLIC [id number] 08:21:00 Test Item Value Reference Range Interpretation Comments SODIUM (test code = 139.0 mmol/L 133-144 N NA) POTASSIUM (test code 3.9 mmol/L 3.5-5.1 N = K) CHLORIDE (test code 111 mmol/L 95-105 H = CL) CARBON DIOXIDE (test 19 mmol/L 21-32 L code = CO2) ANION GAP (test code 9.0 GAP calc 4.0-15.0 N = GAP) GLUCOSE (test code = 119 MG/DL 70-110 H GLU) BLOOD UREA NITROGEN 12 MG/DL 7-18 N (test code = BUN) GLOMERULAR 89 estGFR >60 The estimated FILTRATION RATE glomerular (test code = GFR) filtration rate is computed usingpatient ra ce, age, sex, and s eva creatinine. If any of theneeded da ta elements are mi ssing the Laboratory can notcompute an estimation of t he glomerular filtration rate .The GFR value units = ml/min/1.73 met er squared. EstimatedGFR va lues above 60 should be interpreted as >60, not anexact number.--- DRUG DOSAGE ALERT -- - Drug dosage adjustments uti lize different calculationpara meter s. CREATININE (test 0.90 MG/DL 0.55-1.30 N Results may be code = CREAT) depressed if p atient is takingN-Acetylc ystei ne (NAC) and Metamizole (Dipyrone). TOTAL PROTEIN (test 7.0 G/DL 6.4-8.2 N code = PROT) ALBUMIN (test code = 2.9 G/DL 3.4-5.0 L ALB) ALBUMIN/GLOBULIN 0.7 RATIO 1.2-2.2 L RATIO (test code = A/G) CALCIUM (test code = 8.8 MG/DL 8.5-10.1 N CA) BILIRUBIN TOTAL 0.59 MG/DL 0.00-1.00 N (test code = BILT) BILIRUBIN DIRECT 0.13 MG/DL 0.00-0.30 N (test code = BILD) BILIRUBIN INDIRECT 0.46 MG/DL 0.2-1.3 N (test code = BILIND) SGOT/AST (test code 332 Unit/L 15-37 H = AST) SGPT/ALT (test code 45 Unit/L 12-78 N = ALT) ALKALINE PHOSPHATASE 125 Unit/L 45-117 H TOTAL (test code = ALKP) INDEX HEMOLYSIS 1 NORMAL <10 1 NORMAL (test code = MG Index/DL HEMINDEX) INDEX ICTERIC (test 1 NORMAL <2 MG 1 NORMAL code = ICTINDEX) Index/DL INDEX LIPEMIA (test 1 NORMAL <50 1 NORMAL code = LIPINDEX) MG Index/DL [id number] 08:21:00 Test Item Value Reference Range Interpretation Comments TROPONIN-I 120.000 NG/ML 0.000-0.045 HH Critical value s after the (test code = first occurrenc e are TROPI) excluded fromca ll documentation r equirements for this analyt e due to thepatient diag nosis or therapy protoco ls.REPORTED RESULTS VERIFIE D WITH AUTO-DILUTION P ROCEDURES.An elevated tropon in value alone is not de la cruz fficient todiagnose a my ocardial infarction. Rat her, the patient'sclinic al presentation (h istory, physical exam) and ECGshould be used in conj unction with troponin in the diagnostic evaluation of s uspected myocardial infa rction. Aserial samplin g protocol is recommended to facilitate theidentificati on of temporal change s in troponin levelscharacter istic of DC. COMPREHENSIVE METABOLIC [id number] 07:28:00 Test Item Value Reference Range Interpretation Comments SODIUM (test code = 139.0 mmol/L 133-144 N NA) POTASSIUM (test code 3.9 mmol/L 3.5-5.1 N = K) CHLORIDE (test code 111 mmol/L 95-105 H = CL) CARBON DIOXIDE (test 19 mmol/L 21-32 L code = CO2) ANION GAP (test code 9.0 GAP calc 4.0-15.0 N = GAP) GLUCOSE (test code = 119 MG/DL 70-110 H GLU) BLOOD UREA NITROGEN 12 MG/DL 7-18 N (test code = BUN) GLOMERULAR 89 estGFR >60 The estimated FILTRATION RATE glomerular (test code = GFR) filtration rate is computed usingpatient ra ce, age, sex, and s eva creatinine. If any of theneeded da ta elements are mi ssing the Laboratory can notcompute an estimation of t he glomerular filtration rate .The GFR value units = ml/min/1.73 met er squared. EstimatedGFR va lues above 60 should be interpreted as >60, not anexact number.--- DRUG DOSAGE ALERT -- - Drug dosage adjustments uti lize different calculationpara meter s. CREATININE (test 0.90 MG/DL 0.55-1.30 N Results may be code = CREAT) depressed if p atient is takingN-Acetylc ystei ne (NAC) and Metamizole (Dipyrone). TOTAL PROTEIN (test 7.0 G/DL 6.4-8.2 N code = PROT) ALBUMIN (test code = 2.9 G/DL 3.4-5.0 L ALB) ALBUMIN/GLOBULIN 0.7 RATIO 1.2-2.2 L RATIO (test code = A/G) CALCIUM (test code = 8.8 MG/DL 8.5-10.1 N CA) BILIRUBIN TOTAL 0.59 MG/DL 0.00-1.00 N (test code = BILT) BILIRUBIN DIRECT 0.13 MG/DL 0.00-0.30 N (test code = BILD) BILIRUBIN INDIRECT 0.46 MG/DL 0.2-1.3 N (test code = BILIND) SGOT/AST (test code 332 Unit/L 15-37 H = AST) SGPT/ALT (test code 45 Unit/L 12-78 N = ALT) ALKALINE PHOSPHATASE 125 Unit/L 45-117 H TOTAL (test code = ALKP) INDEX HEMOLYSIS 1 NORMAL <10 1 NORMAL (test code = MG Index/DL HEMINDEX) INDEX ICTERIC (test 1 NORMAL <2 MG 1 NORMAL code = ICTINDEX) Index/DL INDEX LIPEMIA (test 1 NORMAL <50 1 NORMAL code = LIPINDEX) MG Index/DL [id number] 07:28:00 Test Item Value Reference Range Interpretation Comments TROPONIN-I (test code = TROPI) NG/ML 0.000-0.045 COMPREHENSIVE METABOLIC [id number] 07:26:00 Test Item Value Reference Range Interpretation Comments SODIUM (test code = 139.0 mmol/L 133-144 N NA) POTASSIUM (test code 3.9 mmol/L 3.5-5.1 N = K) CHLORIDE (test code 111 mmol/L 95-105 H = CL) CARBON DIOXIDE (test 19 mmol/L 21-32 L code = CO2) ANION GAP (test code 9.0 GAP calc 4.0-15.0 N = GAP) GLUCOSE (test code = 119 MG/DL 70-110 H GLU) BLOOD UREA NITROGEN 12 MG/DL 7-18 N (test code = BUN) GLOMERULAR 89 estGFR >60 The estimated FILTRATION RATE glomerular (test code = GFR) filtration rate is computed usingpatient ra ce, age, sex, and s eva creatinine. If any of theneeded da ta elements are mi ssing the Laboratory can notcompute an estimation of t he glomerular filtration rate .The GFR value units = ml/min/1.73 met er squared. EstimatedGFR va lues above 60 should be interpreted as >60, not anexact number.--- DRUG DOSAGE ALERT -- - Drug dosage adjustments uti lize different calculationpara meter s. CREATININE (test 0.90 MG/DL 0.55-1.30 N Results may be code = CREAT) depressed if p atient is takingN-Acetylc ystei ne (NAC) and Metamizole (Dipyrone). TOTAL PROTEIN (test G/DL 6.4-8.2 code = PROT) ALBUMIN (test code = 2.9 G/DL 3.4-5.0 L ALB) ALBUMIN/GLOBULIN RATIO 1.2-2.2 RATIO (test code = A/G) CALCIUM (test code = 8.8 MG/DL 8.5-10.1 N CA) BILIRUBIN TOTAL MG/DL 0.00-1.00 (test code = BILT) BILIRUBIN DIRECT 0.13 MG/DL 0.00-0.30 N (test code = BILD) BILIRUBIN INDIRECT MG/DL 0.2-1.3 (test code = BILIND) SGOT/AST (test code Unit/L 15-37 = AST) SGPT/ALT (test code Unit/L 12-78 = ALT) ALKALINE PHOSPHATASE Unit/L 45-117 TOTAL (test code = ALKP) INDEX HEMOLYSIS 1 NORMAL <10 1 NORMAL (test code = MG Index/DL HEMINDEX) INDEX ICTERIC (test 1 NORMAL <2 MG 1 NORMAL code = ICTINDEX) Index/DL INDEX LIPEMIA (test 1 NORMAL <50 1 NORMAL code = LIPINDEX) MG Index/DL [id number] 07:26:00 Test Item Value Reference Range Interpretation Comments TROPONIN-I (test code = TROPI) NG/ML 0.000-0.045 CBC W/AUTO [id number] 07:06:00 Test Item Value Reference Range Interpretation Comments WHITE BLOOD CELL (test code = 15.4 K/mm3 4.1-12.1 H WBC) RED BLOOD CELL (test code = RBC) 4.28 M/mm3 3.8-5.5 N HEMOGLOBIN (test code = HGB) 12.3 G/DL 10.6-15.8 N HEMATOCRIT (test code = HCT) 39.5 % 31.8-47.4 N MEAN CELL VOLUME (test code = 92.3 fL 80.1-101.1 N MCV) MEAN CELL HGB (test code = MCH) 28.7 pg 25.3-35.3 N MEAN CELL HGB CONCETRATION (test 31.1 G/DL 32.7-35.1 L code = MCHC) RED CELL DISTRIBUTION WIDTH 14.1 % 12.2-16.4 N (test code = RDW) RED CELL DISTRIBUTION WIDTH 47.8 fL 35.1-43.9 H (test code = RDW-SD) PLATELET COUNT (test code = PLT) 293 K/mm3 155-337 N MEAN PLATELET VOLUME (test code 10.5 fL 7.6-10.4 H = MPV) GRANULOCYTE % (test code = GR%) 87.6 % 37.8-82.6 H IMMATURE GRANULOCYTE % (test 0.4 % 0.0-2.0 N code = IG%) LYMPHOCYTE % (test code = LY%) 7.3 % 14.1-45.4 L MONOCYTE % (test code = MO%) 4.3 % 2.5-11.7 N EOSINOPHIL % (test code = EO%) 0.1 % 0.0-6.2 N BASOPHIL % (test code = BA%) 0.3 % 0.0-2.6 N NUCLEATED RBC % (test code = 0.0 /100WBC% 0.0-1.0 N NRBC%) GRANULOCYTE # (test code = GR#) 13.53 k/mm3 2.0-13.7 N IMMATURE GRANULOCYTE # (test 0.06 K/mm3 0.00-0.03 H code = IG#) LYMPHOCYTE # (test code = LY#) 1.12 K/mm3 0.6-3.8 N MONOCYTE # (test code = MO#) 0.67 K/mm3 0.11-0.59 H EOSINOPHIL # (test code = EO#) 0.01 K/mm3 0.0-0.4 N BASOPHIL # (test code = BA#) 0.04 K/mm3 0.0-0.1 N NUCLEATED RBC # (test code = 0.00 K/mm3 0.00-0.05 N NRBC#) [id number] 00:55:00 Test Item Value Reference Range Interpretation Comments TROPONIN-I 111.000 NG/ML 0.000-0.045 HH Critical value s after the (test code = first occurrenc e are TROPI) excluded fromca ll documentation r equirements for this analyt e due to thepatient diag nosis or therapy protoco ls.REPORTED RESULTS VERIFIE D WITH AUTO-DILUTION P ROCEDURES.An elevated tropon in value alone is not de la cruz fficient todiagnose a my ocardial infarction. Rat her, the patient'sclinic al presentation (h istory, physical exam) and ECGshould be used in conj unction with troponin in the diagnostic evaluation of s uspected myocardial infa rction. Aserial samplin g protocol is recommended to facilitate theidentificati on of temporal change s in troponin levelscharacter istic of DC. [id number] 21:24:00 Test Item Value Reference Range Interpretation Comments TROPONIN-I 15.100 NG/ML 0.000-0.045 HH centrifugation, (test code = rerun/recheck f rom primary TROPI) tube. ON AT 2124, B.LAB.JOHN Dueñas TO LEYDI TARIQ. The repo rt was confirmed by re ad back protocols Y,N: YES. Critical values after the first occurrenc e are excluded.An yumiko vated troponin value alone is not sufficient todi agnose a myocardial infa rction. Rather, the patient'sclinic al presentation (h istory, physical exam) and ECGshould be used in conj unction with troponin in the diagnostic evaluation of s uspected myocardial infa rction. Aserial samplin g protocol is recommended to facilitate theidentificati on of temporal change s in troponin levelscharacter istic of DC. COMPREHENSIVE METABOLIC [id number] 18:32:00 Test Item Value Reference Range Interpretation Comments SODIUM (test code = 140.0 mmol/L 133-144 N NA) POTASSIUM (test code 3.3 mmol/L 3.5-5.1 L = K) CHLORIDE (test code 110 mmol/L 95-105 H = CL) CARBON DIOXIDE (test 21 mmol/L 21-32 N code = CO2) ANION GAP (test code 9.0 GAP calc 4.0-15.0 N = GAP) GLUCOSE (test code = 148 MG/DL 70-110 H GLU) BLOOD UREA NITROGEN 13 MG/DL 7-18 N (test code = BUN) GLOMERULAR 70 estGFR >60 The estimated FILTRATION RATE glomerular (test code = GFR) filtration rate is computed usingpatient ra ce, age, sex, and s eva creatinine. If any of theneeded da ta elements are mi ssing the Laboratory can notcompute an estimation of t he glomerular filtration rate .The GFR value units = ml/min/1.73 met er squared. EstimatedGFR va lues above 60 should be interpreted as >60, not anexact number.--- DRUG DOSAGE ALERT -- - Drug dosage adjustments uti lize different calculationpara meter s. CREATININE (test 1.10 MG/DL 0.55-1.30 N Results may be code = CREAT) depressed if p atient is takingN-Acetylc ystei ne (NAC) and Metamizole (Dipyrone). TOTAL PROTEIN (test 6.6 G/DL 6.4-8.2 N code = PROT) ALBUMIN (test code = 2.9 G/DL 3.4-5.0 L ALB) ALBUMIN/GLOBULIN 0.8 RATIO 1.2-2.2 L RATIO (test code = A/G) CALCIUM (test code = 8.2 MG/DL 8.5-10.1 L CA) BILIRUBIN TOTAL 0.25 MG/DL 0.00-1.00 N (test code = BILT) BILIRUBIN DIRECT 0.11 MG/DL 0.00-0.30 N (test code = BILD) BILIRUBIN INDIRECT 0.14 MG/DL 0.2-1.3 L (test code = BILIND) SGOT/AST (test code 12 Unit/L 15-37 L = AST) SGPT/ALT (test code 14 Unit/L 12-78 N = ALT) ALKALINE PHOSPHATASE 119 Unit/L 45-117 H TOTAL (test code = ALKP) INDEX HEMOLYSIS 1 NORMAL <10 1 NORMAL (test code = MG Index/DL HEMINDEX) INDEX ICTERIC (test 1 NORMAL <2 MG 1 NORMAL code = ICTINDEX) Index/DL INDEX LIPEMIA (test 1 NORMAL <50 1 NORMAL code = LIPINDEX) MG Index/DL COMPREHENSIVE METABOLIC [id number] 18:29:00 Test Item Value Reference Range Interpretation Comments SODIUM (test code = NA) 140.0 mmol/L 133-144 N POTASSIUM (test code = K) 3.3 mmol/L 3.5-5.1 L CHLORIDE (test code = CL) 110 mmol/L 95-105 H CARBON DIOXIDE (test code 21 mmol/L 21-32 N = CO2) ANION GAP (test code = 9.0 GAP calc 4.0-15.0 N GAP) GLUCOSE (test code = GLU) 148 MG/DL 70-110 H BLOOD UREA NITROGEN (test 13 MG/DL 7-18 N code = BUN) CREATININE (test code = MG/DL 0.55-1.30 CREAT) TOTAL PROTEIN (test code G/DL 6.4-8.2 = PROT) ALBUMIN (test code = ALB) 2.9 G/DL 3.4-5.0 L ALBUMIN/GLOBULIN RATIO RATIO 1.2-2.2 (test code = A/G) CALCIUM (test code = CA) 8.2 MG/DL 8.5-10.1 L BILIRUBIN TOTAL (test MG/DL 0.00-1.00 code = BILT) BILIRUBIN DIRECT (test 0.11 MG/DL 0.00-0.30 N code = BILD) BILIRUBIN INDIRECT (test MG/DL [...] <50 MG 1 NORMAL = LIPINDEX) Index/DL PT AND [id number] 18:14:00 Test Item Value Reference Interpretation Comments Range PT PATIENT (test 12.2 SECONDS 9.4-12.5 N code = PTP) INTERNATIONAL 1.05 INR 0.88-1.13 N NORMAL RATIO (test Unit --------- code = INR) ---------Therap eutic range for INR i s dependent upon the situation.2.0-3 .0 Prophylaxis / v enous thromboembolism , Treatment of DVT, Acute myocardia l infarction stro ke prevention, Systemic emboli sm prevention in fibrillation3.0 -4.5 AMI recurrence prev ention, Systemic emboli sm prevention in p rosthetic heart 3.0-5.4 A DC mortality reduc tion THROMBOPLASTIN TIME 23.5 SECONDS 24-37.7 L THERAPEU TIC RANGE FOR PARTIAL (test code UNFRACTIO NATED HEPARIN = = PTT) 50.5-83.6 SEC T his test is not recommen ded to monitor low molecularweight heparin or danaparoid. Order LMWH test COLLECTION THROUGH LINES THAT HAVE BEEN PREVIOUSLY FLUS HEDWITH HEPARIN SHOULD BE AVOIDED DUE TO POSSIBLE HEPARINCONTAMIN ATION - CT HEAD/BRAIN W/O [id number] 18:12:00 Patient Name: ANAHY PONCE Unit No: [id number] EXAMS: CPT CODE: [id number] CT HEAD/BRAIN W/O CONT 81103 Location: T18 CT head, 02/18/19 COMPARISON EXAMS:Noneof the brain TECHNIQUE: CT examination of the brain was performed without contrast on a helical scanner. Scanning conducted from skull base to vertex in the axial plane acquiring contiguous 5mm slice thickness . The examination was performed on a [facility] at helical CT scanner utilizing low-dose radiation [...] [place] DO Dictated Date/Time: 02/18/2019 (1811) Technologist: Barrett Larry - Agency CTDI: 46.15 DLP: 757.79 Trnscrpt: 02/18/2019 (1811) KimberlynDAS6 [facility] Estrada NAME: ANAHY PONCE [address] [place] [address] PHYS: KARY.Ceci - Devin [place], [place] [address] : 1965 AGE: 53 SEX: M LOC: NAE PHONE #: [phone] EXAM DATE: 02/18/2019 STATUS: PRE ER FAX #: [phone] RAD #: D/C DT PAGE 1 Signed Report Patient N livia: ANAHY PONCE Unit No: [id number] EXAMS: CPT CODE: [id number] CT HEAD/BRAIN W/O CONT 56103 <Continued> Orig Print D/T: S: 02/18/2019 (1814) ELPIDIO Dorado NAME: ANAHY PONCE [address] [place] [address] Blvd PHYS: YI - Devin [place], [place] [address] : 1965 AGE: 53 SEX: M LOC: B.ERS PHONE #: [phone] EXAM DATE: 02/18/2019 STATUS: PRE ER FAX #: [phone] RAD #: D/C DT PAGE 2 Signed ReportTROPONIN I [id number] 18:08:00 Test Item Value Reference Range Interpretation Comments TROPONIN I RAPID 0.01 NG/ML 0.00-0.07 N An elevated troponin value (test code = alone is not de la cruz fficient TROPIRAP) todiagnose a my ocardial infarction. Rat her, the patient'sclinic al presentation (h istory, physical exam) and ECGshould be us ed in conjunction wit h troponin in thediagnosti c evaluation of suspected my ocardial infarction. Ase rial sampling protoc ol is recommended to facilitate theidentificati on of temporal change s in troponin levelscharacter istic of DC. CHEMISTRY 7 [id number] 18:03:00 Test Item Value Reference Range Interpretation Comments IONIZED CALCIUM (test code = CAIABG) mmol/L 1.13-1.32 ISTAT-TCO2 VENOUS (test code = MMOL/L 21-32 N TCO2VP) ISTAT-SODIUM (test code = NAP) MMOL/L 135-148 ISTAT-POTASSIUM (test code = KP) MMOL/L 3.5-5.9 ISTAT-CHLORIDE (test code = CLP) MMOL/L 98-106 ISTAT-ANION GAP (test code = GAPP) MEQ/L 10-20 ISTAT-GLUCOSE (test code = GLUP) MG/DL 70-119 H ISTAT-BUN (test code = BUNP) MG/DL 8-28 N BEDSIDE CREATININE (test code = MG/DL 0.6-1.2 N CREATBED) GLOMERULAR FILTRATION RATE POC (test 70 56-130 N code = GFRBED) CHEMISTRY 7 [id number] 18:03:00 Test Item Value Reference Range Interpretation Comments IONIZED CALCIUM (test 1.15 mmol/L 1.13-1.32 N code = CAIABG) ISTAT-TCO2 VENOUS (test 21 MMOL/L 21-32 N code = TCO2VP) ISTAT-SAMPLE SOURCE UNKNOWN SPEC TYPE Specimen (test code = SRCIST) Descript ISTAT-SODIUM (test code 142 MMOL/L 135-148 N = NAP) ISTAT-POTASSIUM (test 3.4 MMOL/L 3.5-5.9 L code = KP) ISTAT-CHLORIDE (test 107 MMOL/L 98-106 H code = CLP) ISTAT-ANION GAP (test 18.0 MEQ/L 10-20 N code = GAPP) ISTAT-GLUCOSE (test code 147 MG/DL 70-119 H = GLUP) ISTAT-BUN (test code = 12 MG/DL 8-28 N BUNP) BEDSIDE CREATININE (test 1.1 MG/DL 0.6-1.2 N code = CREATBED) GLOMERULAR FILTRATION 70 56-130 N RATE POC (test code = GFRBED) CBC W/AUTO [id number] 18:03:00 Test Item Value Reference Range Interpretation Comments WHITE BLOOD CELL (test code = 10.1 K/mm3 4.1-12.1 N WBC) RED BLOOD CELL (test code = RBC) 3.69 M/mm3 3.8-5.5 L HEMOGLOBIN (test code = HGB) 10.9 G/DL 10.6-15.8 N HEMATOCRIT (test code = HCT) 33.3 % 31.8-47.4 N MEAN CELL VOLUME (test code = 90.2 fL 80.1-101.1 N MCV) MEAN CELL HGB (test code = MCH) 29.5 pg 25.3-35.3 N MEAN CELL HGB CONCETRATION (test 32.7 G/DL 32.7-35.1 N code = MCHC) RED CELL DISTRIBUTION WIDTH 13.8 % 12.2-16.4 N (test code = RDW) RED CELL DISTRIBUTION WIDTH 45.8 fL 35.1-43.9 H (test code = RDW-SD) PLATELET COUNT (test code = PLT) 370 K/mm3 155-337 H MEAN PLATELET VOLUME (test code 10.2 fL 7.6-10.4 N = MPV) GRANULOCYTE % (test code = GR%) 64.3 % 37.8-82.6 N IMMATURE GRANULOCYTE % (test 0.5 % 0.0-2.0 N code = IG%) LYMPHOCYTE % (test code = LY%) 26.5 % 14.1-45.4 N MONOCYTE % (test code = MO%) 5.9 % 2.5-11.7 N EOSINOPHIL % (test code = EO%) 2.1 % 0.0-6.2 N BASOPHIL % (test code = BA%) 0.7 % 0.0-2.6 N NUCLEATED RBC % (test code = 0.0 /100WBC% 0.0-1.0 N NRBC%) GRANULOCYTE # (test code = GR#) 6.49 k/mm3 2.0-13.7 N IMMATURE GRANULOCYTE # (test 0.05 K/mm3 0.00-0.03 H code = IG#) LYMPHOCYTE # (test code = LY#) 2.67 K/mm3 0.6-3.8 N MONOCYTE # (test code = MO#) 0.59 K/mm3 0.11-0.59 N EOSINOPHIL # (test code = EO#) 0.21 K/mm3 0.0-0.4 N BASOPHIL # (test code = BA#) 0.07 K/mm3 0.0-0.1 N NUCLEATED RBC # (test code = 0.00 K/mm3 0.00-0.05 N NRBC#) B-TYPE NATRIURETIC FACTOR (BNP)2017-04-16 16:37:00 Test Item Value Reference Range Interpretation Comments B-TYPE NATRIURETIC PEPTIDE (BEAKER) 497 pg/mL 0-100 H (test code = 700) [id number] 15:20:00 Test Item Value Reference Range Interpretation Comments MAGNESIUM (BEAKER) (test code = 1.8 mg/dL 1.6-2.6 627) BASIC METABOLIC [id number] 15:20:00 Test Item Value Reference Range Interpretation Comments SODIUM (BEAKER) 137 meq/L 136-145 (test code = 381) POTASSIUM (BEAKER) 4.0 meq/L 3.5-5.1 (test code = 379) CHLORIDE (BEAKER) 101 meq/L 98-107 (test code = 382) CO2 (BEAKER) (test 28 meq/L 22-29 code = 355) BLOOD UREA NITROGEN 15 mg/dL 7-21 (BEAKER) (test code = 354) CREATININE (BEAKER) 1.08 mg/dL 0.57-1.25 (test code = 358) GLUCOSE RANDOM 81 mg/dL 70-105 (BEAKER) (test code = 652) CALCIUM (BEAKER) 9.7 mg/dL 8.4-10.2 (test code = 697) EGFR (BEAKER) (test 72 mL/min/1.73 ESTIMA SB GFR IS code = 1092) sq m NOT ACCURATE CREATININE CLEARANCE IN PREDICTING GLOMERULAR FILTRATION RATE . ESTIMATED GFR I S NOT APPLICABLE FOR DIALYSIS PATIEN TS. TROPONIN [id number] 04:40:00 Test Item Value Reference Range Interpretation Comments TROPONIN I (BEAKER) (test code = 3.39 ng/mL 0.00-0.03 397) Troponin I (TnI) levels must be interpreted [...] failure, acidosis, acute neurological disease, and persistent tachyarrhythmia.[id number] 04:23:00 Test Item Value Reference Range Interpretation Comments MAGNESIUM (BEAKER) (test code = 2.2 mg/dL 1.6-2.6 627) BASIC METABOLIC [id number] 04:23:00 Test Item Value Reference Range Interpretation Comments SODIUM (BEAKER) 138 meq/L 136-145 (test code = 381) POTASSIUM (BEAKER) 3.7 meq/L 3.5-5.1 (test code = 379) CHLORIDE (BEAKER) 105 meq/L 98-107 (test code = 382) CO2 (BEAKER) (test 21 meq/L 22-29 L code = 355) BLOOD UREA NITROGEN 35 mg/dL 7-21 H (BEAKER) (test code = 354) CREATININE (BEAKER) 1.11 mg/dL 0.57-1.25 (test code = 358) GLUCOSE RANDOM 86 mg/dL 70-105 (BEAKER) (test code = 652) CALCIUM (BEAKER) 9.3 mg/dL 8.4-10.2 (test code = 697) EGFR (BEAKER) (test 70 mL/min/1.73 ESTIMA SB GFR IS code = 1092) sq m NOT ACCURATE CREATININE CLEARANCE IN PREDICTING GLOMERULAR FILTRATION RATE . ESTIMATED GFR I S NOT APPLICABLE FOR DIALYSIS PATIEN TS. CBC (HEMOGRAM ONLY)2017-04-07 04:00:00 Test Item Value Reference Range Interpretation Comments WHITE BLOOD CELL COUNT (BEAKER) 12.6 K/ L 3.5-10.5 H (test code = 775) RED BLOOD CELL COUNT (BEAKER) 3.85 M/ L 4.63-6.08 L (test code = 761) HEMOGLOBIN (BEAKER) (test code = 10.9 GM/DL 13.7-17.5 L 410) HEMATOCRIT (BEAKER) (test code = 34.2 % 40.1-51.0 L 411) MEAN CORPUSCULAR VOLUME (BEAKER) 88.8 fL 79.0-92.2 (test code = 753) MEAN CORPUSCULAR HEMOGLOBIN 28.3 pg 25.7-32.2 (BEAKER) (test code = 751) MEAN CORPUSCULAR HEMOGLOBIN CONC 31.9 GM/DL 32.3-36.5 L (BEAKER) (test code = 752) RED CELL DISTRIBUTION WIDTH 15.5 % 11.6-14.4 H (BEAKER) (test code = 412) PLATELET COUNT (BEAKER) (test 276 K/CU MM 150-450 code = 756) MEAN PLATELET VOLUME (BEAKER) 10.9 fL 9.4-12.4 (test code = 754) NUCLEATED RED BLOOD CELLS 0 /100 WBC 0-0 (BEAKER) (test code = 413) TROPONIN [id number] 11:34:00 Test Item Value Reference Range Interpretation Comments TROPONIN I (BEAKER) (test code = 4.01 ng/mL 0.00-0.03 HH 397) Troponin I (TnI) levels must be interpreted [...] failure, acidosis, acute neurological disease, and persistent tachyarrhythmia.[id number] 06:25:00 Test Item Value Reference Range Interpretation Comments MAGNESIUM (BEAKER) (test code = 2.0 mg/dL 1.6-2.6 627) BASIC METABOLIC [id number] 06:25:00 Test Item Value Reference Range Interpretation Comments SODIUM (BEAKER) 139 meq/L 136-145 (test code = 381) POTASSIUM (BEAKER) 3.7 meq/L 3.5-5.1 (test code = 379) CHLORIDE (BEAKER) 106 meq/L 98-107 (test code = 382) CO2 (BEAKER) (test 21 meq/L 22-29 L code = 355) BLOOD UREA NITROGEN 22 mg/dL 7-21 H (BEAKER) (test code = 354) CREATININE (BEAKER) 0.91 mg/dL 0.57-1.25 (test code = 358) GLUCOSE RANDOM 81 mg/dL 70-105 (BEAKER) (test code = 652) CALCIUM (BEAKER) 9.5 mg/dL 8.4-10.2 (test code = 697) EGFR (BEAKER) (test 88 mL/min/1.73 ESTIMA SB GFR IS code = 1092) sq m NOT ACCURATE CREATININE CLEARANCE IN PREDICTING GLOMERULAR FILTRATION RATE . ESTIMATED GFR I S NOT APPLICABLE FOR DIALYSIS PATIEN TS. CBC (HEMOGRAM ONLY)2017-04-06 05:46:00 Test Item Value Reference Range Interpretation Comments WHITE BLOOD CELL COUNT (BEAKER) 15.7 K/ L 3.5-10.5 H (test code = 775) RED BLOOD CELL COUNT (BEAKER) 4.09 M/ L 4.63-6.08 L (test code = 761) HEMOGLOBIN (BEAKER) (test code = 11.6 GM/DL 13.7-17.5 L 410) HEMATOCRIT (BEAKER) (test code = 37.0 % 40.1-51.0 L 411) MEAN CORPUSCULAR VOLUME (BEAKER) 90.5 fL 79.0-92.2 (test code = 753) MEAN CORPUSCULAR HEMOGLOBIN 28.4 pg 25.7-32.2 (BEAKER) (test code = 751) MEAN CORPUSCULAR HEMOGLOBIN CONC 31.4 GM/DL 32.3-36.5 L (BEAKER) (test code = 752) RED CELL DISTRIBUTION WIDTH 15.7 % 11.6-14.4 H (BEAKER) (test code = 412) PLATELET COUNT (BEAKER) (test 290 K/CU MM 150-450 code = 756) MEAN PLATELET VOLUME (BEAKER) 11.2 fL 9.4-12.4 (test code = 754) NUCLEATED RED BLOOD CELLS 0 /100 WBC 0-0 (BEAKER) (test code = 413) [id number] 07:49:00 Test Item Value Reference Range Interpretation Comments MAGNESIUM (BEAKER) (test code = 2.0 mg/dL 1.6-2.6 627) TROPONIN [id number] 05:48:00 Test Item Value Reference Range Interpretation Comments TROPONIN I (BEAKER) (test code = 8.11 ng/mL 0.00-0.03 397) Troponin I (TnI) levels must be interpreted [...] acute neurological disease, and persistent tachyarrhythmia.COMPREHENSIVE METABOLIC [id number] 05:42:00 Test Item Value Reference Range Interpretation Comments TOTAL PROTEIN 6.9 gm/dL 6.0-8.3 (BEAKER) (test code = 770) ALBUMIN (BEAKER) 3.5 g/dL 3.5-5.0 (test code = 1145) ALKALINE PHOSPHATASE 118 U/L 40-150 (BEAKER) (test code = 346) BILIRUBIN TOTAL 0.8 mg/dL 0.2-1.2 (BEAKER) (test code = 377) SODIUM (BEAKER) (test 138 meq/L 136-145 code = 381) POTASSIUM (BEAKER) 3.9 meq/L 3.5-5.1 (test code = 379) CHLORIDE (BEAKER) 107 meq/L 98-107 (test code = 382) CO2 (BEAKER) (test 23 meq/L 22-29 code = 355) BLOOD UREA NITROGEN 17 mg/dL 7-21 (BEAKER) (test code = 354) CREATININE (BEAKER) 0.80 mg/dL 0.57-1.25 (test code = 358) GLUCOSE RANDOM 108 mg/dL 70-105 H (BEAKER) (test code = 652) CALCIUM (BEAKER) 8.8 mg/dL 8.4-10.2 (test code = 697) AST (SGOT) (BEAKER) 45 U/L 5-34 H (test code = 353) ALT (SGPT) (BEAKER) 17 U/L 6-55 (test code = 347) EGFR (BEAKER) (test 102 ESTIMATE D GFR IS code = 1092) mL/min/1.73 sq NOT ACCURA TE m CREATININE CLEARANCE IN PREDICTING GLOMERULAR FILTRATION RATE . ESTIMATED GFR I S NOT APPLICABLE FOR DIALYSIS PATIEN TS. RAD, CHEST, 1 VIEW, NON [id number] 05:07:00Reason for exam:->IABPFINAL REPORT RAD, CHEST, 1 [...] mediastinal contours.Additional findings:None. Signed: JR Alfredo, Johana MUHAMMADaurelia Verified Date/Time: 04/05/2017 05:07:01 Reading Location: [facility] B1 C013Y CT Body Reading Room [id number] 04:15:00 Test Item Value Reference Range Interpretation Comments FERRITIN (BEAKER) (test code = 361) 141 ng/mL 5-275 CREATINE KINASE (CK), TOTAL AND [id number] 04:04:00 Test Item Value Reference Range Interpretation Comments CREATINE KINASE TOTAL (BEAKER) 228 U/L 29-200 H (test code = 380) CREATINE KINASE-MB (BEAKER) (test 18.7 ng/mL 0.0-6.6 H code = 750) CREATINE KINASE-MB INDEX (BEAKER) 8.2 % (test code = 395) CK-MB Reference Range:<6.7 Normal6.7-10.0 Borderline>10.0 AbnormalIRON, TIBC, % SAT. (WITHOUT FERRITIN)2017-04-05 04:01:00 Test Item Value Reference Range Interpretation Comments IRON (BEAKER) (test code = 547) 16 ug/dL 40-160 L TOTAL IRON BINDING CAPACITY 223 ug/dL 250-450 L (BEAKER) (test code = 769) IRON % SATURATION (2) (BEAKER) 7 % 20-55 L (test code = 2590) [id number] 03:56:00 Test Item Value Reference Range Interpretation Comments MAGNESIUM (BEAKER) (test code = 1.6 mg/dL 1.6-2.6 627) CBC W/PLT COUNT & AUTO [id number] 03:38:00 Test Item Value Reference Range Interpretation Comments WHITE BLOOD CELL COUNT (BEAKER) 13.4 K/ L 3.5-10.5 H (test code = 775) RED BLOOD CELL COUNT (BEAKER) 3.33 M/ L 4.63-6.08 L (test code = 761) HEMOGLOBIN (BEAKER) (test code = 9.5 GM/DL 13.7-17.5 L 410) HEMATOCRIT (BEAKER) (test code = 30.1 % 40.1-51.0 L 411) MEAN CORPUSCULAR VOLUME (BEAKER) 90.4 fL 79.0-92.2 (test code = 753) MEAN CORPUSCULAR HEMOGLOBIN 28.5 pg 25.7-32.2 (BEAKER) (test code = 751) MEAN CORPUSCULAR HEMOGLOBIN CONC 31.6 GM/DL 32.3-36.5 L (BEAKER) (test code = 752) RED CELL DISTRIBUTION WIDTH 15.7 % 11.6-14.4 H (BEAKER) (test code = 412) PLATELET COUNT (BEAKER) (test 252 K/CU MM 150-450 code = 756) MEAN PLATELET VOLUME (BEAKER) 11.3 fL 9.4-12.4 (test code = 754) NUCLEATED RED BLOOD CELLS 0 /100 WBC 0-0 (BEAKER) (test code = 413) NEUTROPHILS RELATIVE PERCENT 86 % (BEAKER) (test code = 429) LYMPHOCYTES RELATIVE PERCENT 8 % (BEAKER) (test code = 430) MONOCYTES RELATIVE PERCENT 5 % (BEAKER) (test code = 431) EOSINOPHILS RELATIVE PERCENT 0 % (BEAKER) (test code = 432) BASOPHILS RELATIVE PERCENT 0 % (BEAKER) (test code = 437) NEUTROPHILS ABSOLUTE COUNT 11.52 K/ L 1.78-5.38 H (BEAKER) (test code = 670) LYMPHOCYTES ABSOLUTE COUNT 1.07 K/ L 1.32-3.57 L (BEAKER) (test code = 414) MONOCYTES ABSOLUTE COUNT (BEAKER) 0.63 K/ L 0.30-0.82 (test code = 415) EOSINOPHILS ABSOLUTE COUNT 0.06 K/ L 0.04-0.54 (BEAKER) (test code = 416) BASOPHILS ABSOLUTE COUNT (BEAKER) 0.06 K/ L 0.01-0.08 (test code = 417) IMMATURE GRANULOCYTES-RELATIVE 0 % 0-1 PERCENT (BEAKER) (test code = 2801) TROPONIN [id number] 19:07:00 Test Item Value Reference Range Interpretation Comments TROPONIN I (BEAKER) (test code = 11.89 ng/mL 0.00-0.03 HH 397) Troponin I (TnI) levels must be interpreted [...] 2017-04-04 19:06:00 Test Item Value Reference Range Interpretation Comments CREATINE KINASE TOTAL (BEAKER) 485 U/L 29-200 H (test code = 380) CREATINE KINASE-MB (BEAKER) (test 59.5 ng/mL 0.0-6.6 H code = 750) CREATINE KINASE-MB INDEX (BEAKER) 12.3 % (test code = 395) CK-MB Reference Range:<6.7 Normal6.7-10.0 Borderline>10.0 AbnormalHEMOGLOBIN [id number] 17:50:00 Test Item Value Reference Range Interpretation Comments HEMOGLOBIN A1C (NOREEN) (test code = 5.3 % 4.3-6.1 368) RAD, CHEST, 1 VIEW, NON [id number] 17:49:00Reason for exam:->eval for PVCShould this be [...] normal in size. No fracture. Signed: Conchita Prado MDReportVerified Date/Time: 04/04/2017 17:49:35 Reading Location: [facility] Radiology Reading Room TROPONIN [id number] 11:58:00 Test Item Value Reference Range Interpretation Comments TROPONIN I (BEAKER) (test code = 4.95 ng/mL 0.00-0.03 397) Troponin I (TnI) levels must be interpreted [...] 2017-04-04 11:49:00 Test Item Value Reference Range Interpretation Comments CREATINE KINASE TOTAL (BEAKER) 332 U/L 29-200 H (test code = 380) CREATINE KINASE-MB (BEAKER) (test 40.7 ng/mL 0.0-6.6 H code = 750) CREATINE KINASE-MB INDEX (BEAKER) 12.3 % (test code = 395) CK-MB Reference Range:<6.7 Normal6.7-10.0 Borderline>10.0 AbnormalCBC W/PLT COUNT & AUTO [id number] 11:49:00 Test Item Value Reference Range Interpretation Comments WHITE BLOOD CELL COUNT (BEAKER) 12.1 K/ L 3.5-10.5 H (test code = 775) RED BLOOD CELL COUNT (BEAKER) 3.67 M/ L 4.63-6.08 L (test code = 761) HEMOGLOBIN (BEAKER) (test code = 10.5 GM/DL 13.7-17.5 L 410) HEMATOCRIT (BEAKER) (test code = 33.8 % 40.1-51.0 L 411) MEAN CORPUSCULAR VOLUME (BEAKER) 92.1 fL 79.0-92.2 (test code = 753) MEAN CORPUSCULAR HEMOGLOBIN 28.6 pg 25.7-32.2 (BEAKER) (test code = 751) MEAN CORPUSCULAR HEMOGLOBIN CONC 31.1 GM/DL 32.3-36.5 L (BEAKER) (test code = 752) RED CELL DISTRIBUTION WIDTH 15.7 % 11.6-14.4 H (BEAKER) (test code = 412) PLATELET COUNT (BEAKER) (test 274 K/CU MM 150-450 code = 756) MEAN PLATELET VOLUME (BEAKER) 11.3 fL 9.4-12.4 (test code = 754) NUCLEATED RED BLOOD CELLS 0 /100 WBC 0-0 (BEAKER) (test code = 413) NEUTROPHILS RELATIVE PERCENT 89 % (BEAKER) (test code = 429) LYMPHOCYTES RELATIVE PERCENT 8 % (BEAKER) (test code = 430) MONOCYTES RELATIVE PERCENT 2 % (BEAKER) (test code = 431) EOSINOPHILS RELATIVE PERCENT 0 % (BEAKER) (test code = 432) BASOPHILS RELATIVE PERCENT 0 % (BEAKER) (test code = 437) NEUTROPHILS ABSOLUTE COUNT 10.81 K/ L 1.78-5.38 H (BEAKER) (test code = 670) LYMPHOCYTES ABSOLUTE COUNT 0.92 K/ L 1.32-3.57 L (BEAKER) (test code = 414) MONOCYTES ABSOLUTE COUNT (BEAKER) 0.24 K/ L 0.30-0.82 L (test code = 415) EOSINOPHILS ABSOLUTE COUNT 0.02 K/ L 0.04-0.54 L (BEAKER) (test code = 416) BASOPHILS ABSOLUTE COUNT (BEAKER) 0.04 K/ L 0.01-0.08 (test code = 417) IMMATURE GRANULOCYTES-RELATIVE 1 % 0-1 PERCENT (BEAKER) (test code = 2801) B-TYPE NATRIURETIC FACTOR (BNP)2017-04-04 11:48:00 Test Item Value Reference Range Interpretation Comments B-TYPE NATRIURETIC PEPTIDE (BEAKER) 741 pg/mL 0-100 H (test code = 700) [id number] 11:42:00 Test Item Value Reference Range Interpretation Comments PHOSPHORUS (BEAKER) (test code = 2.2 mg/dL 2.3-4.7 L 604) [id number] 11:42:00 Test Item Value Reference Range Interpretation Comments MAGNESIUM (BEAKER) (test code = 2.1 mg/dL 1.6-2.6 627) COMPREHENSIVE METABOLIC [id number] 11:42:00 Test Item Value Reference Range Interpretation Comments TOTAL PROTEIN 7.4 gm/dL 6.0-8.3 (BEAKER) (test code = 770) ALBUMIN (BEAKER) 3.7 g/dL 3.5-5.0 (test code = 1145) ALKALINE PHOSPHATASE 120 U/L 40-150 (BEAKER) (test code = 346) BILIRUBIN TOTAL 0.4 mg/dL 0.2-1.2 (BEAKER) (test code = 377) SODIUM (BEAKER) (test 137 meq/L 136-145 code = 381) POTASSIUM (BEAKER) 4.7 meq/L 3.5-5.1 (test code = 379) CHLORIDE (BEAKER) 108 meq/L 98-107 H (test code = 382) CO2 (BEAKER) (test 22 meq/L 22-29 code = 355) BLOOD UREA NITROGEN 17 mg/dL 7-21 (BEAKER) (test code = 354) CREATININE (BEAKER) 0.99 mg/dL 0.57-1.25 (test code = 358) GLUCOSE RANDOM 121 mg/dL 70-105 H (BEAKER) (test code = 652) CALCIUM (BEAKER) 9.1 mg/dL 8.4-10.2 (test code = 697) AST (SGOT) (BEAKER) 35 U/L 5-34 H (test code = 353) ALT (SGPT) (BEAKER) 14 U/L 6-55 (test code = 347) EGFR (BEAKER) (test 80 mL/min/1.73 ESTIMA SB GFR IS code = 1092) sq m NOT ACCURATE CREATININE CLEARANCE IN PREDICTING GLOMERULAR FILTRATION RATE . ESTIMATED GFR I S NOT APPLICABLE FOR DIALYSIS PATIEN TS. LIPID [id number] 11:42:00 Test Item Value Reference Range Interpretation Comments TRIGLYCERIDES (BEAKER) (test code = 59 mg/dL 540) CHOLESTEROL (BEAKER) (test code = 215 mg/dL 631) HDL CHOLESTEROL (BEAKER) (test code 30 mg/dL = 976) LDL CHOLESTEROL CALCULATED (FarmLogsAKER) 173 mg/dL (test code = 633) Triglyceride Reference Range: Low Risk <150 Borderline 150-199 High Risk 200-499 Very High Risk >=500Cholesterol Reference Range: Low Risk <200 Borderline 200-239 High Risk >240HDL Cholesterol Reference Range: Low Risk >=60 High Risk <40LDL Cholesterol Reference Range: Optimal <100 Near Optimal 100-129 Borderline 130-159 High 160-189 Very High >=[id number] 11:31:00 Test Item Value Reference Range Interpretation Comments PARTIAL THROMBOPLASTIN TIME 165.8 seconds 22.5-36.0 HH (FarmLogsKATH) (test code = 760) PROTHROMBIN TIME/[id number] 11:25:00 Test Item Value Reference Range Interpretation Comments PROTIME (NOREEN) (test code = 16.0 seconds 11.7-14.7 H 759) INR (BEAKER) (test code = 370) 1.3 <=5.9 RECOMMENDED COUMADIN/WARFARIN INR THERAPY RANGESSTANDARD DOSE: 2.0 - 3.0 Includes: PROPHYLAXIS forvenous thrombosis, systemic embolization; TREATMENT for venous thrombosis and/or pulmonary embolus.HIGH RISK: Target INR is 2.5-3.5 for patients with mechanical heart valves.[id number] 10:07:00 Test Item Value Reference Range Interpretation Comments ACTIVATED CLOTTING TIME 197 sec TEST ED AT [facility] [address] [facility] (test code = [place] [address]) [id number] 10:07:00 Test Item Value Reference Range Interpretation Comments ACTIVATED CLOTTING TIME 202 sec TEST ED AT [facility] [address] (NOREEN) (test code = [place] [address]) [id number]"
[2021-03-19] MEDS ORDERED: MORPHINE 4 MG/ML SYR ONE (11:14)
[2021-03-19] MEDS ORDERED: NA CHLORIDE 0.9% 1,000 ML ONE (11:15)
[2021-03-19] MEDS ORDERED: ONDANSETRON 4 MG/2 ML VIAL ONE (11:15)
--- NOTE | 2021-03-19 11:17 | RAD REPORT ---
EXAM DESCRIPTION: [facility] Protocol - 03/19/2021 11:08 am CLINICAL HISTORY: FLANK PAIN COMPARISON: Abdomen Pelvis W Contrast dated 09/10/2019 TECHNIQUE: CT of the abdomen and pelvis was performed. All CT scans are performed using dose optimization technique as appropriate and may include automated exposure control or mA/KV adjustment according to patient size. FINDINGS: Lower chest: Small hiatal hernia with thickened distal esophagus likely reflecting gastroe sophageal reflux disease. Pacemaker lead Liver: No acute abnormality or suspicious lesions. Biliary: No biliary ductal dilatation. Stomach: No significant focal abnormality. Duodenum: No significant focal abnormality. Pancreas: No significant abnormality. Spleen: No significant abnormality. Adrenal: No suspicious lesions. Kidney/ureter: Mild left-sided hydronephrosis. Left ureteral stent in place. Stones are present in th e lower pole left kidney. Retroperitoneum: No retroperitoneal adenopathy. Vascular: Mild atherosclerosis. Bowel: No significant focal abnormality. Peritoneum: No ascites or free air. Bladder: Grossly unremarkable. Reproductive: No adnexal masses. Bones: No acute fracture. Other: n/a IMPRESSION: Mild left-sided hydronephrosis despite the presence of the ureteral stent. This could re flect stent dysfunction. No other acute findings are identified.
[2021-03-19 11:21] LABS: Urine Blood 3+ (Negative); Urine Glucose Negative (Negative); Urine Protein 2+ (Negative); Urine Specific Gravity 1.025 (1.005-1.030); Urine pH 6.5 (5.0-7.0)
[2021-03-19 11:41] LABS: Absolute Lymphocytes (CBC) 1.2 K/uL (0.7-4.9); Basophils % 0.6 % (0-1.3); Hematocrit 46.5 % (39.6-49.0); Lymphocytes % 10.5 % (15.3-44.8); MPV 9.4 fL (7.6-11.3); RBC Red Blood Cell Count 4.86 M/uL (4.33-5.43)
[2021-03-19 11:51] LABS: Urine Bacteria <20 /HPF (NONE SEEN); Urine Mucus LIGHT /HPF (NONE SEEN); Urine RBC >50 /HPF (NONE SEEN)
--- NOTE | 2021-03-19 12:20 | ER ---
Nurse's Notes [facility] Name: Eddie Isaacs Age: 55 yrs Sex: Male : 1965 Arrival Date: 03/19/2021 Time: 10:50 Bed 14 Private MD: Diagnosis: Mild Hydronephrosis left ;Hematuria, unspecified Presentation: 03/19 11:00 Chief complaint: Patient states: left flank pain and low back pain X 1 week , hx of iw kidney stones, had stent placed 3 months ago in [place]. Coronavirus screen: At this time, the client does not indicate any symptoms associated with coronavirus-19. Ebola Screen: Patient negative for fever greater than or equal to 101.5 degrees Fahrenheit, and additional compatible Ebola Virus Disease symptoms Patient denies exposure to infectious person. Patient denies travel to an Ebola-affected area in the 21 days before illness onset. No symptoms or risks identified at this time. Initial Sepsis Screen: Does the patient meet any 2 criteria? No. Patient's initial sepsis screen is negative. Does the patient have a suspected source of infection? No. Patient's initial sepsis screen is negative. Risk Assessment: Do you want to hurt yourself or someone else? Patient reports no desire to harm self or others. Onset of symptoms was March 12, 2021. 11:00 Method Of Arrival: Ambulatory iw 11:00 Acuity: DENICE 3 iw Triage Assessment: 11:20 General: Behavior is calm, cooperative, appropriate for age. sl2 11:20 Musculoskeletal: Capillary refill < 3 seconds, Reports pain in left flank. sl2 16:24 General: Appears. 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 - Social history:: Smoking status: Patient reports the use of cigarette tobacco products, smokes one-half pack cigarettes per day. Screenin:10 Abuse screen: Denies threats or abuse. Nutritional screening: No deficits noted. sl2 Tuberculosis screening: No symptoms or risk factors identified. Fall Risk None identified. No fall in past 12 months (0 pts). No secondary diagnosis (0 pts). No IV (0 pts). Ambulatory Aid- Crutches/Cane/Walker (15 pts). Gait- Normal/Bed Rest/Wheelchair (0 pts) Mental Status- Oriented to own ability (0 pts). Assessment: 11:10 General: Appears uncomfortable, well groomed, well developed, Behavior is calm, sl2 cooperative, appropriate for age, Reports lower back pain. 11:10 Pain: Complains of pain in left flank Pain does not radiate. Pain currently is 9 out of sl2 10 on a pain scale. Quality of pain is described as aching, sharp, stabbing, Pain began 3 days ago Is continuous, Alleviated by nothing. Aggravated by repositioning, Noted to be grimacing, resistant to movement. Neuro: No deficits noted. 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 Full function Gait is steady, Speech is normal, Facial symmetry appears normal. Cardiovascular: No deficits noted. Respiratory: No deficits noted. GI: No deficits noted. : No deficits noted. 11:12 Reassessment: CAT scan completed - patient has been returned to the unit. sl2 11:48 Pain: Pain currently is 5 out of 10 on a pain scale. level that patient reports is sl2 acceptable is 2 out of 10 on a pain scale. 12:58 Pain: Denies pain. sl2 Vital Signs: 10:52 BP 145 / 97; Pulse 85; Resp 18; Temp 98.3; Pulse Ox 100% ; sl2 11:00 BP 145 / 97; Pulse 93; Resp 18 S; Temp 98.3; Pulse Ox 100% on R/A; Height 5 ft. 11 in. iw (180.34 cm); Pain 10/10; 11:35 BP 156 / 86; Pulse 88; Resp 18; Pulse Ox 100% on R/A; sl2 12:00 BP 138 / 79; Pulse 80; Resp 18; Temp 98.2; Pulse Ox 99% on R/A; sl2 ED Course: 10:50 Patient arrived in ED. as 10:51 Lizy Johnson FNP-C [facility]. kb 10:51 Jacques Abraham MD is Attending Physician. kb 11:02 Triage completed. iw 11:04 Arm band placed on. iw 11:09 CT Stone Protocol In Process Unspecified. EDMS 11:10 Patient has correct armband on for positive identification. Placed in gown. Bed in low sl2 position. Call light in reach. 11:10 No provider procedures requiring assistance completed. sl2 11:12 Hermila Mack, RN is Primary Nurse. sl2 11:23 Initial lab(s) drawn, by va, sent to lab. sl2 11:23 Inserted saline lock: 22 gauge in left forearm, using aseptic technique. Blood sl2 collected. 12:50 IV discontinued, intact, bleeding controlled, No redness/swelling at site. Pressure em1 dressing applied. Administered Medications: 11:20 Drug: NS 0.9% 1000 ml Route: IV; Rate: 1000 ml; Site: left forearm; sl2 11:51 Follow up: Response: No adverse reaction sl2 12:30 Follow up: IV Status: Completed infusion; IV Intake: 1000ml sl2 11:20 Drug: Zofran (Ondansetron) 4 mg Route: IVP; Site: left forearm; sl2 11:51 Follow up: Response: No adverse reaction; Nausea is decreased sl2 11:24 Drug: morphine 4 mg Route: IVP; Site: left forearm; sl2 11:50 Follow up: Response: No adverse reaction; Pain is decreased sl2 12:29 Drug: Rocephin (cefTRIAXone) 1 grams Route: IV; Rate: calculated rate; Site: left sl2 antecubital; 12:58 Follow up: IV Status: Completed infusion; IV Intake: 10ml sl2 12:31 CANCELLED (Duplicate Order): Ketorolac 30 mg IM once kb 12:32 Drug: Ketorolac 30 mg Route: IVP; Site: left forearm; sl2 12:57 Follow up: Response: No adverse reaction; Pain is decreased sl2 Intake: 12:30 IV: 1000ml; Total: 1000ml. sl2 12:58 IV: 10ml; Total: 1010ml. sl2 Outcome: 12:20 Discharge ordered by . kb 12:50 Discharged to home sl2 12:50 Discharged to home ambulatory. sl2 12:50 Condition: stable 12:50 Discharge instructions given to patient, Instructed on discharge instructions, follow up and referral plans. medication usage, Demonstrated understanding of instructions, follow-up care, medications, Prescriptions given X 2. 12:59 Patient left the ED. sl2 Signatures: Dispatcher [employer] EDLizy Heller, LEONARDO COOK-Nohemi Tyson Irene, RN Xander Ruth Sophia, RN RN sl2
--- NOTE | 2021-03-19 12:21 | EDPHYS ---
Physician Documentation [facility] Name: Eddie Isaacs Age: 55 yrs Sex: Male : 1965 Arrival Date: 03/19/2021 Time: 10:50 Bed 14 Private MD: ED Physician Jacques Abraham HPI: 03/19 12:55 This 55 yrs old Male presents to ER via Ambulatory with complaints of Back kb Pain, Urinary Problem. 12:55 The patient complains of pain in the left flank. The pain does not radiate. Onset: The kb symptoms/episode began/occurred 1.5 week(s) ago. Modifying factors: The symptoms are alleviated by nothing. the symptoms are aggravated by nothing. Associated signs and symptoms: Pertinent positives: hematuria, Pertinent negatives: diarrhea, dizziness, dysuria, fever, urinary frequency, headache, nausea, pain radiating to the lower extremities, vomiting. Severity of pain: At its worst the pain was moderate in the emergency department the pain is unchanged. The patient has not experienced similar symptoms in the past. The patient has not recently seen a physician. Pt reports left flank pain and intermittent hematuria for 1.5 weeks. States he had a stent placed 3 months ago. 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 - Social history:: Smoking status: Patient reports the use of cigarette tobacco products, smokes one-half pack cigarettes per day. ROS: 12:53 Constitutional: Negative for fever, chills, and weight loss. kb 12:53 Back: Positive for flank pain, on the left. 12:53 : Positive for flank pain, hematuria. 12:53 All other systems are negative. Exam: 12:55 Constitutional: This is a well developed, well nourished patient who is awake, alert, kb and in no acute distress. Head/Face: Normocephalic, atraumatic. ENT: Moist Mucous membranes Cardiovascular: Regular rate and rhythm with a normal S1 and S2. No gallops, murmurs, or rubs. No pulse deficits. Respiratory: Respirations even and unlabored. No increased work of breathing, no retractions or nasal flaring. Abdomen/GI: Soft, non-tender. No distention Skin: Warm, dry with normal turgor. Normal color. MS/ Extremity: Pulses equal, no cyanosis. Neurovascular intact. Full, normal range of motion. Neuro: Awake and alert, GCS 15, oriented to person, place, time, and situation. Moves all extremities. Normal gait. Psych: Awake, alert, with orientation to person, place and time. Behavior, mood, and affect are within normal limits. 12:55 Back: pain, that is moderate, ROM is normal, CVA tenderness, that is mild, is noted on the left. Vital Signs: 10:52 BP 145 / 97; Pulse 85; Resp 18; Temp 98.3; Pulse Ox 100% ; sl2 11:00 BP 145 / 97; Pulse 93; Resp 18 S; Temp 98.3; Pulse Ox 100% on R/A; Height 5 ft. 11 in. iw (180.34 cm); Pain 10/10; 11:35 BP 156 / 86; Pulse 88; Resp 18; Pulse Ox 100% on R/A; sl2 12:00 BP 138 / 79; Pulse 80; Resp 18; Temp 98.2; Pulse Ox 99% on R/A; sl2 MDM: 10:52 Patient medically screened. 12:45 Data reviewed: vital signs, nurses notes. Data interpreted: Pulse oximetry: on room air kb is 99 %. Interpretation: normal. Counseling: I had a detailed discussion with the patient and/or guardian regarding: the historical points, exam findings, and any diagnostic results supporting the discharge/admit diagnosis, the need for outpatient follow up, a family practitioner, to return to the emergency department if symptoms worsen or persist or if there are any questions or concerns that arise at home. ED course: Discussed diagnostics with ERP. Recommends outpatient follow up with farm implement mechanic. Pt has appt on Saturday with farm implement mechanic in [place] that placed stent. 12:53 Response to treatment: the patient's symptoms have resolved after treatment, the kb patient's pain is gone. 03/19 10:58 Order name: Basic Metabolic Panel 03/19 10:58 Order name: CBC with Diff 03/19 10:58 Order name: Urine Microscopic Only; Complete Time: 12:03 kb 03/19 10:59 Order name: Basic Metabolic Panel; Complete Time: 12:03 EDMS 03/19 10:59 Order name: CBC with Automated Diff; Complete Time: 11:48 EDMS 03/19 11:21 Order name: Urine Dipstick-Ancillary; Complete Time: 11:33 EDMS 03/19 10:58 Order name: CT Stone Protocol; Complete Time: 11:33 kb 03/19 11:52 Order name: Urine Culture EDMS 03/19 10:58 Order name: IV Saline Lock; Complete Time: 11:45 kb 03/19 10:58 Order name: Labs collected and sent; Complete Time: 11:45 kb 03/19 10:58 Order name: Urine Dipstick-Ancillary (obtain specimen); Complete Time: 11:21 kb Administered Medications: 11:20 Drug: NS 0.9% 1000 ml Route: IV; Rate: 1000 ml; Site: left forearm; sl2 11:51 Follow up: Response: No adverse reaction sl2 12:30 Follow up: IV Status: Completed infusion; IV Intake: 1000ml sl2 11:20 Drug: Zofran (Ondansetron) 4 mg Route: IVP; Site: left forearm; sl2 11:51 Follow up: Response: No adverse reaction; Nausea is decreased sl2 11:24 Drug: morphine 4 mg Route: IVP; Site: left forearm; sl2 11:50 Follow up: Response: No adverse reaction; Pain is decreased sl2 12:29 Drug: Rocephin (cefTRIAXone) 1 grams Route: IV; Rate: calculated rate; Site: left sl2 antecubital; 12:58 Follow up: IV Status: Completed infusion; IV Intake: 10ml sl2 12:31 CANCELLED (Duplicate Order): Ketorolac 30 mg IM once kb 12:32 Drug: Ketorolac 30 mg Route: IVP; Site: left forearm; sl2 12:57 Follow up: Response: No adverse reaction; Pain is decreased sl2 Disposition: 03/20 05:58 Co-signature as Attending Physician, Jacques Abraham MD I agree with the assessment and liu plan of care. Disposition Summary: 03/19/21 12:20 Discharge Ordered Location: Home kb Condition: Stable kb Diagnosis - Mild Hydronephrosis left kb - Hematuria, unspecified kb Followup: kb - With: Emergency Department - When: As needed - Reason: Worsening of condition Followup: kb - With: Private Physician - When: 2 - 3 days - Reason: Recheck today's complaints, Continuance of care, Re-evaluation by your physician Discharge Instructions: - Discharge Summary Sheet kb - Hematuria, Adult kb - Ureteral Stent Implantation, Care After kb Forms: - Medication Reconciliation Form kb - Thank You Letter kb - Antibiotic Education kb - Prescription Opioid Use kb Prescriptions: - Cipro 500 mg Oral Tablet - take 1 tablet by ORAL route every 12 hours for 10 days; 20 tablet; Refills: 0, kb Product Selection Permitted - Diclofenac Sodium 75 mg Oral tablet,delayed release (DR/EC) - take 1 tablet by ORAL route 2 times per day As needed; 30 tablet; Refills: 0, kb Product Selection Permitted Signatures: Dispatcher [employer] EDLizy Heller, H[employer]TING SALES ASSOCIATE-C HUNTING SALES ASSOCIATE-Jacques Cedillo MD MD cha Williams, Irene, RN RN iw Hermila Mack RN RN sl2 Corrections: (The following items were deleted from the chart) 03/19 12:31 12:31 Ketorolac 30 mg IM once ordered. kb kb
[2021-03-19] MEDS ORDERED: CEFTRIAXONE 1000 MG/VIAL ONE (12:24)
[2021-03-19] MEDS ORDERED: KETOROLAC 30 MG/ML INJ ONE (12:31)
[2021-03-19 13:16] VITALS: BP 138/79; TEMP 98.2; O2SAT 99
== END 2021-03-19 12:59 | disposition home or self-care (01) ==
LOC: ER 10:47
DX: N13.30 Unspecified hydronephrosis (principal); F17.210 Nicotine dependence, cigarettes, uncomplicated; I25.2 Old myocardial infarction; I10 Essential (primary) hypertension; Z95.810 Presence of automatic (implantable) cardiac defibrillator; Z95.818 Presence of other cardiac implants and grafts
CPT/HCPCS: 96365; 96361; 87088; 85025; 87086; 80048; 36415; 76377; 74176; 96375; 99284; J7030; J2405; 81003; 81015

== ENCOUNTER 2022-04-26 10:32 | Emergency (ER) | payer OTHER ==
--- OUTSIDE RECORDS SUMMARY | 2022-04-26 10:45 | XMS REPORT | Continuity of Care Document ---
:1965 Author Organization [facility] t Address [address] [place] [address] Care Team Providers Name Role Phone FOUND, PCP NOT Primary Care Physician Unavailable CORDELIA RUTLEDGE Attending Clinician Unavailable LEO HADDAD Attending Clinician Unavailable Kacie Vila MD Attending Clinician Doctor Unassigned, Bray Attending Clinician Unavailable KACIE VILA Attending Clinician Unavailable Leo Haddad MD Attending Clinician 2, [facility] Attending Clinician Unavailable CORETTA BARBER Attending Clinician Unavailable Hiren Montgomery MD Attending Clinician HIREN MONTGOMERY Attending Clinician Unavailable Coretta Lugo Attending Clinician Cordelia Rutledge MD Attending Clinician London ROGERS Attending Clinician Unavailable [place] Leong Attending Clinician Dong Lei MD Attending Clinician Kelton Carney MD Attending Clinician Miracle SIDHU, Randy Poole Attending Clinician Jay BAKERP, Ximenaerich Arita Attending Clinician Lino SIDHU, Nati Attending Clinician Corina SOUTH, Mary Aaorn Attending Clinician Alberta Vuong MD Attending Clinician JEFFERY DE LA CRUZ Attending Clinician Unavailable Allie De La O Attending Clinician NATI RADER Attending Clinician Unavailable DONG LEI Attending Clinician Unavailable Renato SIDHU, Hamzah Banegas Attending Clinician CHRISSY LAZCANO Attending Clinician Unavailable RIGOBERTO DIXON Attending Clinician Unavailable CORDELIA RUTLEDGE Admitting Clinician Unavailable LEO HADDAD Admitting Clinician Unavailable KACIE VILA Admitting Clinician Unavailable Aamir SIDHU, Cordelia Admitting Clinician Kelton Carney MD Admitting Clinician Nati Rader MD Admitting Clinician Yevgeniy SIDHU, Alberta Admitting Clinician NATI RADER Admitting Clinician Unavailable Colton SIDHU, Kacie Admitting Clinician DONG LEI Admitting Clinician Unavailable RIGOBERTO DIXON Admitting Clinician Unavailable Payers Payer Name Policy Type Policy Number Effective Date Expiration Date S ash[facility] [id number] 2020 00:00:00 [place]ICAID OF [place] [id number] 2019 00:00:00 DARS DISABILITY [id number] 2017 DETERMINATION SVCS 00:00:00 Problems Condition Condition Condition Status Onset Resolution Last Treating Co mments Source Name Details Category Date Date Treatment Clinician Date Dizziness Dizziness Disease Active Uni vers and and 6-22 ity [place] ICD ICD Disease Active Univers (implantab (implantab 5-16 it y of le le 00:00: [place] cardiovert cardiovert 00 Me dical er-defibri er-defibri Br anch llator) in llator) in place place PAD PAD Disease Active Univers (periphera (periphera 5-16 it y of l artery l artery 00:00: [place] disease) disease) 00 Medica l Branch Heart Heart Disease Active Univers failure failure 7-21 ity of 00:00: [place] 00 Medical Branch Calculus Calculus Disease Active Overview: Un letitia of kidney of kidney 11-11 Formattin i ty of 00:00: g of this 00 note Medical might be Branch different from the original. Added automatic ally from request for surgery [id number] Chest pain Chest pain Disease Active U nivers 6-21 ity of 00:00: [place] 00 Medical Branch Pneumonia Pneumonia Disease Active Uni vers 8-25 ity of 00:00: [place] 00 Medical Branch NSTEMI NSTEMI Disease Active Univers (non-ST (non-ST 8-24 ity of elevated elevated 00:00: [place] myocardial myocardial 00 Me dical infarction infarction Br anch ) ) Acute CHF Acute CHF Disease Active Uni vers 5-13 ity of 00:00: [place] 00 Medical Branch Essential Essential Disease Active Uni vers hypertensi hypertensi 5-13 it y of on on 00:00: [place] 00 Medical Branch Chronic Chronic Disease Active Univers combined combined 4-18 ity of systolic systolic 00:00: [place] and and 00 Medical diastolic diastolic Bran ch CHF, NYHA CHF, NYHA class 2 class 2 NSVT NSVT Disease Active Univers (nonsustai (nonsustai 4-18 it y of ivania ivania 00:00: [place] ventricula ventricula 00 Me dical r r Branch tachycardi tachycardi a) a) CHF CHF Disease Active Univers (congestiv (congestiv 4-16 it y of e heart e heart 00:00: [place] failure) failure) 00 Medica l Branch Atypical Atypical Disease Active Unive rs chest pain chest pain 4-16 it y of 00:00: [place] 00 Medical Branch Dyslipidem Dyslipidem Disease Active U nivers ia ia 4-16 ity of 00:00: [place] 00 Medical Branch Ischemic Ischemic Disease Active Unive rs cardiomyop cardiomyop 4-16 it y of athy athy 00:00: [place] 00 [facility] Branch LEONARD LEONARD Disease Active Univers (dyspnea (dyspnea 4-16 ity of on on 00:00: [place] exertion) exertion) 00 [facility] Branch Coronary Coronary Disease Active Unive rs artery artery 4-16 ity of disease disease 00:00: [place] involving involving 00 [facility] [place] Branch coronary coronary artery of artery [place] heart with heart with angina angina pectoris pectoris Methadone Methadone Disease Active 2016-[address] [facility] [address] maintenanc maintenanc 1-30 [place] e therapy e therapy 00:00: [facility] patient patient 00 Center GERD GERD Disease Active 2016-[address] [facility] [address] (gastroeso (gastroeso 1-30 [place] phageal phageal 00:00: Medical reflux reflux 00 Center disease) disease) Chronic Chronic Disease Active 2016-[address] [facility] combined combined 1-30 [facility] systolic systolic 00:00: Medica l and and 00 Center diastolic diastolic CHF CHF (congestiv (congestiv e heart e heart failure) failure) ST ST Disease Active 2016-[address] [facility] [address] elevation elevation 1-30 [facility] myocardial myocardial 00:00: Me dical infarction infarction 00 Ce nter involving involving left left anterior anterior descending descending (LAD) (LAD) coronary coronary artery artery Tobacco Tobacco Disease Active 2016-[address] [facility] [address] abuse abuse 1-30 [facility] 00:[facility]: [address] Problem Condition [facility] Allergies, Adverse Reactions, Alerts Allergy Allergy Status Severity Reaction(s) Onset Inactive Treating Comm ents Source Name Type Date Date Clinician No Known DA Active U 2018-05 [facility]ie 0-16 [place] [facility] 00:[facility]: [facility] [address] [place] [address] No Known Drug Active Medical Allerg[facility] Center [facility] NO KNOWN Drug Active [facility] ALLERGIE Class ity of S [facility] Family History Family Member Diagnosis Comments Start Date Stop Date Source Maternal aunt Cancer [facility] Natural mother Cancer [facility] Social History Social Habit Start Date Stop Date Quantity Comments Source History of tobacco Cigarette Smoker University of use [facility] Exposure to 2022-01-23 2022-02-02 Not sure [facility] SARS-CoV-2 (event) 00:00:00 11:09:00 [facility] Cigarettes smoked 2019-10-14 2019-10-14 Univers ity of current (pack per 00:00:00 00:00:00 [facility] ) - Reported Branch Tobacco Comment 2019-10-14 2019-10-14 1PPD X 30 years Univ ersity of 00:00:00 00:00:00 [place] [facility] Education 2019-08-20 2019-08-20 12 University of 00:00:00 00:00:00 [place] [facility] History SDOH 2019-08-20 2019-08-20 2 University o f Financial 00:00:00 00:00:00 [place] [facility] History SDOH Food 2019-08-20 2019-08-20 3 Univers ity of Worry 00:00:00 00:00:00 [place] [facility] History [facility] Food 2019-08-20 2019-08-20 3 Univers ity of Scarcity 00:00:00 00:00:00 [place] [facility] History SDIA 2019-08-20 2019-08-20 1 University o f Transport Med 00:00:00 00:00:00 [place] Medic al Branch History [facility] 2019-08-20 2019-08-20 1 University o f Transport Non-Med 00:00:00 00:00:00 [facility] Branch Alcohol intake 2017-04-16 2017-04-[address] [facility] 00:00:00 00:00:00 non-drinker of Medical Ce nter alcohol (finding) Tobacco use and 2017-04-04 2017-04-[address] [facility] exposure 00:00:00 00:00:00 [facility] Sex Assigned At [address] [facility] 00:00:00 00:00:00 [facility] Smoking Status Start Date Stop Date Source Unknown if ever smoked [place] [facility] Smokes tobacco daily 2019-10-14 00:00:00 Univers ity of [facility] Medications Ordered Filled Start Stop Current Ordering Indication Dosage Frequency Signature Comments Components Source Medication Medication Date Date Medication? Clinician (SIG) Name Name metoprolol 2021-05 Yes [id number] 25mg Take 1 U nivers succinate 2-07 tablet by ity o f XL 25 mg 24 00:00: mouth [place] tablet 00 the Medical morning Branch and 1 tablet in the evening. furosemide 2021-05 Yes [id number] 80mg Take 1 U nivers 80 mg 1-07 tablet by ity of tablet 00:00: mouth [place] 00 every Medical morning Branch and evening. furosemide 2021-05 Yes [id number] 80mg Take 1 U nivers 80 mg 1-07 tablet by ity of tablet 00:00: mouth [place] 00 every Medical morning Branch and evening. spironolact 2021-05 Yes [id number] 50mg Take 1 Univers one 50 mg 0-31 tablet by ity o f tablet 00:00: mouth in [place] 00 the Medical morning. Branch spironolact 2021-05 Yes [id number] 50mg Take 1 Univers one 50 mg 0-31 tablet by ity o f tablet 00:00: mouth in [place] 00 the Medical morning. Branch spironolact 2021-05 Yes [id number] 50mg Take 1 Univers one 50 mg 0-31 tablet by ity o f tablet 00:00: mouth in [place] 00 the Medical morning. Branch atorvastati Yes [id number] 40mg Take 1 Univers n 40 mg 9-30 tablet by ity of tablet 00:00: mouth at [place] [address] bedtime. Medical Branch atorvastati Yes [id number] 40mg Take 1 Univers n 40 mg 9-30 tablet by ity of tablet 00:00: mouth at [place] [address] bedtime. Medical Branch atorvastati Yes [id number] 40mg Take 1 Univers n 40 mg 9-30 tablet by ity of tablet 00:00: mouth at [place] 00 bedtime. Medical Branch atorvastati Yes [id number] 40mg Take 1 Univers n 40 mg 9-30 tablet by ity of tablet 00:00: mouth at [place] [address] bedtime. Medical Branch sacubitriL- 2021- Yes [id number] 1{tbl} Take 1 Univers valsartan 9-28 9100 tablet by ity o f 24-26 mg 00:00: mouth in [place] tablet 00 the Medical morning Branch and 1 tablet in the evening. sacubitriL- 2021-0 Yes [id number] 1{tbl} Take 1 Univers valsartan 9-28 9100 tablet by ity o f 24-26 mg 00:00: mouth in [place] tablet 00 the Medical morning Branch and 1 tablet in the evening. empaglifloz 2021- Yes [id number] 10mg Take 1 Univers in 10 mg 9-28 9100 tablet by ity of 00:00: mouth in [place] 00 the Medical morning. Branch sacubitriL- 2022-0 Yes [id number] 1{tbl} Take 1 Univers valsartan 9-28 9100 tablet by ity o f 24-26 mg 00:00: mouth in [place] tablet 00 the Medical morning Branch and 1 tablet in the evening. sacubitriL- 2022-0 Yes [id number] 1{tbl} Take 1 Univers valsartan 9-28 9100 tablet by ity o f 24-26 mg 00:00: mouth in [place] tablet 00 the Medical morning Branch and 1 tablet in the evening. empaglifloz 2022-0 Yes [id number] 10mg Take 1 Univers in 10 mg 9-28 9100 tablet by ity of 00:00: mouth in [place] 00 the Medical morning. Branch sacubitriL- 2022-0 Yes [id number] 1{tbl} Take 1 Univers valsartan 9-28 9100 tablet by ity o f 24-26 mg 00:00: mouth in [place] tablet 00 the Medical morning Branch and 1 tablet in the evening. sacubitriL- 2022-0 Yes [id number] 1{tbl} Take 1 Univers valsartan 9-28 9100 tablet by ity o f 24-26 mg 00:00: mouth in [place] tablet 00 the Medical morning Branch and 1 tablet in the evening. empaglifloz 2022-0 Yes [id number] 10mg Take 1 Univers in 10 mg 9-28 9100 tablet by ity of 00:00: mouth in [place] 00 the Medical morning. Branch sacubitriL- 2022-0 Yes [id number] 1{tbl} Take 1 Univers valsartan 9-28 9100 tablet by ity o f 24-26 mg 00:00: mouth in [place] tablet 00 the Medical morning Branch and 1 tablet in the evening. sacubitriL- 2022-0 Yes [id number] 1{tbl} Take 1 Univers valsartan 9-28 9100 tablet by ity o f 24-26 mg 00:00: mouth in [place] tablet 00 the Medical morning Branch and 1 tablet in the evening. empaglifloz 2022-0 Yes [id number] 10mg Take 1 Univers in 10 mg 9-28 9100 tablet by ity of 00:00: mouth in [place] 00 the Medical morning. Branch sacubitriL- 2021-0 Yes [id number] 1{tbl} Take 1 Univers valsartan 9-28 9100 tablet by ity o f 24-26 mg 00:00: mouth in [place] tablet 00 the Medical morning Branch and 1 tablet in the evening. sacubitriL- 2-0 Yes [id number] 1{tbl} Take 1 Univers valsartan 9-28 9100 tablet by ity o f 24-26 mg 00:00: mouth in [place] tablet 00 the Medical morning Branch and 1 tablet in the evening. empaglifloz 2-0 Yes [id number] 10mg Take 1 Univers in 10 mg 9-28 9100 tablet by ity of 00:00: mouth in [place] 00 the Medical morning. Branch sacubitriL- 2021-0 Yes [id number] 1{tbl} Take 1 Univers valsartan 9-28 9100 tablet by ity o f 24-26 mg 00:00: mouth in [place] tablet 00 the Medical morning Branch and 1 tablet in the evening. empaglifloz 2021-0 Yes [id number] 10mg Take 1 Univers in 10 mg 5-16 9100 tablet by ity of 00:00: mouth [place] 00 daily. Medical Branch sacubitriL- 2021-0 Yes [id number] 1{tbl} Take 1 Univers valsartan 5-16 9100 tablet by ity o f 24-26 mg 00:00: mouth 2 [place] tablet 00 (two) Medical times Branch daily. empaglifloz 2-0 Yes [id number] 10mg Take 1 Univers in 10 mg 5-16 9100 tablet by ity of 00:00: mouth [place] 00 daily. Medical Branch sacubitriL- 2021-0 Yes [id number] 1{tbl} Take 1 Univers valsartan 5-16 9100 tablet by ity o f 24-26 mg 00:00: mouth 2 [place] tablet 00 (two) Medical times Branch daily. empaglifloz 2-0 Yes [id number] 10mg Take 1 Univers in 10 mg 5-16 9100 tablet by ity of 00:00: mouth [place] 00 daily. Medical Branch sacubitriL- 2021-0 Yes [id number] 1{tbl} Take 1 Univers valsartan 5-16 9100 tablet by ity o f 24-26 mg 00:00: mouth 2 [place] tablet 00 (two) Medical times Branch daily. empaglifloz 2021-0 Yes [id number] 10mg Take 1 Univers in 10 mg 5-16 9100 tablet by ity of 00:00: mouth [place] 00 daily. Medical Branch sacubitriL- 2021-0 Yes [id number] 1{tbl} Take 1 Univers valsartan 5-16 9100 tablet by ity o f 24-26 mg 00:00: mouth 2 [place] tablet 00 (two) Medical times Branch daily. empaglifloz 2021-0 Yes [id number] 10mg Take 1 Univers in 10 mg 5-16 9100 tablet by ity of 00:00: mouth [place] 00 daily. Medical Branch sacubitriL- 0 Yes [id number] 1{tbl} Take 1 Univers valsartan 5-16 9100 tablet by ity o f 24-26 mg 00:00: mouth 2 [place] tablet 00 (two) Medical times Branch daily. empaglifloz 2021-0 Yes [id number] 10mg Take 1 Univers in 10 mg 5-16 9100 tablet by ity of 00:00: mouth [place] 00 daily. Medical Branch sacubitriL- 2021-0 Yes [id number] 1{tbl} Take 1 Univers valsartan 5-16 9100 tablet by ity o f 24-26 mg 00:00: mouth 2 [place] tablet 00 (two) Medical times Branch daily. empaglifloz 2021-0 Yes [id number] 10mg Take 1 Univers in 10 mg 5-16 9100 tablet by ity of 00:00: mouth [place] 00 daily. Medical Branch sacubitriL- 2021-0 Yes [id number] 1{tbl} Take 1 Univers valsartan 5-16 9100 tablet by ity o f 24-26 mg 00:00: mouth 2 [place] tablet 00 (two) Medical times Branch daily. empaglifloz 2021-0 Yes [id number] 10mg Take 1 Univers in 10 mg 5-16 9100 tablet by ity of 00:00: mouth [place] 00 daily. Medical Branch sacubitriL- 2021-0 2021- No [id number] 1{tbl} Take 1 Univers valsartan 09-18 9100 tablet by ity of 24-26 mg 00:00: 00:00 mouth 2 [place] tablet 00 :00 (two) Medical times Branch daily. empaglifloz 2021- No [id number] 10mg Take 1 Univers in 10 mg 09-18 9100 tablet by ity o f 00:00: 00:00 mouth [place] 00 :00 daily. Medical Branch sacubitriL- 2021- No [id number] 1{tbl} Take 1 Univers valsartan 09-18 9100 tablet by ity of 24-26 mg 00:00: 00:00 mouth 2 [place] tablet 00 :00 (two) Medical times Branch daily. atorvastati Yes [id number] 40mg Take 1 Univers n 40 mg 3-10 tablet by ity of tablet 00:00: mouth at [place] 00 bedtime. Medical Branch isosorbide Yes [id number] 30mg Take 1 U nivers mononitrate 3-10 tablet by ity of 30 mg 24 hr 00:00: mouth 2 [place] tablet 00 (two) Medical times Branch daily. clopidogreL Yes [id number] 75mg Take 1 Univers 75 mg 3-10 tablet by ity of tablet 00:00: mouth [place] 00 daily. Medical Branch spironolact Yes [id number] 50mg Take 1 Univers one 50 mg 3-10 tablet by ity o f tablet 00:00: mouth [place] 00 daily. Medical Branch metoprolol Yes [id number] 25mg Take 1 U nivers succinate 3-10 tablet by ity o f XL 25 mg 24 00:00: mouth 2 [place] hr tablet 00 (two) Medical times Branch daily. KCL 20 mEq Yes [id number] 40meq Take 2 Univers tablet 3-10 tablets by ity of 00:00: mouth [place] 00 daily. Medical Branch furosemide 0 Yes [id number] 80mg Take 1 U nivers 80 mg 3-10 tablet by ity of tablet 00:00: mouth [place] 00 every Medical morning Branch and evening. enalapril 0 Yes [id number] 2.5mg Take 1 U nivers 2.5 mg 3-10 tablet by ity of tablet 00:00: mouth [place] 00 daily. Medical Branch atorvastati 2021-0 Yes [id number] 40mg Take 1 Univers n 40 mg 3-10 tablet by ity of tablet 00:00: mouth at [place] 00 bedtime. Medical Branch isosorbide 2021-0 Yes [id number] 30mg Take 1 U nivers mononitrate 3-10 tablet by ity of 30 mg 24 hr 00:00: mouth 2 [place] tablet 00 (two) Medical times Branch daily. clopidogreL 2021-0 Yes [id number] 75mg Take 1 Univers 75 mg 3-10 tablet by ity of tablet 00:00: mouth [place] 00 daily. Medical Branch spironolact 2021-0 Yes [id number] 50mg Take 1 Univers one 50 mg 3-10 tablet by ity o f tablet 00:00: mouth [place] 00 daily. Medical Branch metoprolol 2021-0 Yes [id number] 25mg Take 1 U nivers succinate 3-10 tablet by ity o f XL 25 mg 24 00:00: mouth 2 [place] hr tablet 00 (two) Medical times Branch daily. KCL 20 mEq 2021-0 Yes [id number] 40meq Take 2 Univers tablet 3-10 tablets by ity of 00:00: mouth [place] 00 daily. Medical Branch furosemide 2021-0 Yes [id number] 80mg Take 1 U nivers 80 mg 3-10 tablet by ity of tablet 00:00: mouth [place] 00 every Medical morning Branch and evening. enalapril 2021-0 Yes [id number] 2.5mg Take 1 U nivers 2.5 mg 3-10 tablet by ity of tablet 00:00: mouth [place] 00 daily. Medical Branch atorvastati 2021-0 Yes [id number] 40mg Take 1 Univers n 40 mg 3-10 tablet by ity of tablet 00:00: mouth at [place] 00 bedtime. Medical Branch isosorbide 2021-0 Yes [id number] 30mg Take 1 U nivers mononitrate 3-10 tablet by ity of 30 mg 24 hr 00:00: mouth 2 [place] tablet 00 (two) Medical times Branch daily. clopidogreL 2021-0 Yes [id number] 75mg Take 1 Univers 75 mg 3-10 tablet by ity of tablet 00:00: mouth [place] 00 daily. Medical Branch spironolact 2021-0 Yes [id number] 50mg Take 1 Univers one 50 mg 3-10 tablet by ity o f tablet 00:00: mouth [place] 00 daily. Medical Branch metoprolol 2021-0 Yes [id number] 25mg Take 1 U nivers succinate 3-10 tablet by ity o f XL 25 mg 24 00:00: mouth 2 [place] hr tablet 00 (two) Medical times Branch daily. KCL 20 mEq 2021-0 Yes [id number] 40meq Take 2 Univers tablet 3-10 tablets by ity of 00:00: mouth [place] 00 daily. Medical Branch furosemide 2021-0 Yes [id number] 80mg Take 1 U nivers 80 mg 3-10 tablet by ity of tablet 00:00: mouth [place] 00 every Medical morning Branch and evening. enalapril 0 Yes [id number] 2.5mg Take 1 U nivers 2.5 mg 3-10 tablet by ity of tablet 00:00: mouth [place] 00 daily. Medical Branch atorvastati 0 Yes [id number] 40mg Take 1 Univers n 40 mg 3-10 tablet by ity of tablet 00:00: mouth at [place] 00 bedtime. Medical Branch isosorbide 2021-0 Yes [id number] 30mg Take 1 U nivers mononitrate 3-10 tablet by ity of 30 mg 24 hr 00:00: mouth 2 [place] tablet 00 (two) Medical times Branch daily. clopidogreL 0 Yes [id number] 75mg Take 1 Univers 75 mg 3-10 tablet by ity of tablet 00:00: mouth [place] 00 daily. Medical Branch spironolact 2021-0 Yes [id number] 50mg Take 1 Univers one 50 mg 3-10 tablet by ity o f tablet 00:00: mouth [place] 00 daily. Medical Branch metoprolol 2021-0 Yes [id number] 25mg Take 1 U nivers succinate 3-10 tablet by ity o f XL 25 mg 24 00:00: mouth 2 [place] hr tablet 00 (two) Medical times Branch daily. KCL 20 mEq 2021-0 Yes [id number] 40meq Take 2 Univers tablet 3-10 tablets by ity of 00:00: mouth [place] 00 daily. Medical Branch furosemide 2021-0 Yes [id number] 80mg Take 1 U nivers 80 mg 3-10 tablet by ity of tablet 00:00: mouth [place] 00 every Medical morning Branch and evening. enalapril 202-0 Yes [id number] 2.5mg Take 1 U nivers 2.5 mg 3-10 tablet by ity of tablet 00:00: mouth [place] 00 daily. Medical Branch isosorbide 2021-0 Yes [id number] 30mg Take 1 U nivers mononitrate 3-10 tablet by ity of 30 mg 24 hr 00:00: mouth 2 [place] tablet 00 (two) Medical times Branch daily. clopidogreL 2021-0 Yes [id number] 75mg Take 1 Univers 75 mg 3-10 tablet by ity of tablet 00:00: mouth [place] 00 daily. Medical Branch metoprolol 2021-0 Yes [id number] 25mg Take 1 U nivers succinate 3-10 tablet by ity o f XL 25 mg 24 00:00: mouth 2 [place] hr tablet 00 (two) Medical times Branch daily. KCL 20 mEq 2021-0 Yes [id number] 40meq Take 2 Univers tablet 3-10 tablets by ity of 00:00: mouth [place] 00 daily. Medical Branch furosemide 2021-0 Yes [id number] 80mg Take 1 U nivers 80 mg 3-10 tablet by ity of tablet 00:00: mouth [place] 00 every Medical morning Branch and evening. enalapril 2021-0 Yes [id number] 2.5mg Take 1 U nivers 2.5 mg 3-10 tablet by ity of tablet 00:00: mouth [place] 00 daily. Medical Branch isosorbide 2021-0 Yes [id number] 30mg Take 1 U nivers mononitrate 3-10 tablet by ity of 30 mg 24 hr 00:00: mouth 2 [place] tablet 00 (two) Medical times Branch daily. clopidogreL 2021-0 Yes [id number] 75mg Take 1 Univers 75 mg 3-10 tablet by ity of tablet 00:00: mouth [place] 00 daily. Medical Branch metoprolol 2021-0 Yes [id number] 25mg Take 1 U nivers succinate 3-10 tablet by ity o f XL 25 mg 24 00:00: mouth 2 [place] hr tablet 00 (two) Medical times Branch daily. KCL 20 mEq 2-0 Yes [id number] 40meq Take 2 Univers tablet 3-10 tablets by ity of 00:00: mouth [place] 00 daily. Medical Branch enalapril 2021-0 Yes [id number] 2.5mg Take 1 U nivers 2.5 mg 3-10 tablet by ity of tablet 00:00: mouth [place] 00 daily. Medical Branch isosorbide 2021-0 Yes [id number] 30mg Take 1 U nivers mononitrate 3-10 tablet by ity of 30 mg 24 hr 00:00: mouth 2 [place] tablet 00 (two) Medical times Branch daily. clopidogreL 2021-0 Yes [id number] 75mg Take 1 Univers 75 mg 3-10 tablet by ity of tablet 00:00: mouth [place] 00 daily. Medical Branch KCL 20 mEq 2021-0 Yes [id number] 40meq Take 2 Univers tablet 3-10 tablets by ity of 00:00: mouth [place] 00 daily. Medical Branch enalapril 2021-0 Yes [id number] 2.5mg Take 1 U nivers 2.5 mg 3-10 tablet by ity of tablet 00:00: mouth [place] 00 daily. Medical Branch isosorbide 2021-0 Yes [id number] 30mg Take 1 U nivers mononitrate 3-10 tablet by ity of 30 mg 24 hr 00:00: mouth 2 [place] tablet 00 (two) Medical times Branch daily. clopidogreL 2021-0 Yes [id number] 75mg Take 1 Univers 75 mg 3-10 tablet by ity of tablet 00:00: mouth [place] 00 daily. Medical Branch spironolact 2021-0 Yes [id number] 50mg Take 1 Univers one 50 mg 3-10 tablet by ity o f tablet 00:00: mouth [place] 00 daily. Medical Branch metoprolol 2021-0 Yes [id number] 25mg Take 1 U nivers succinate 3-10 tablet by ity o f XL 25 mg 24 00:00: mouth 2 [place] hr tablet 00 (two) Medical times Branch daily. KCL 20 mEq 2021-0 Yes [id number] 40meq Take 2 Univers tablet 3-10 tablets by ity of 00:00: mouth [place] 00 daily. Medical Branch furosemide 2021-0 Yes [id number] 80mg Take 1 U nivers 80 mg 3-10 tablet by ity of tablet 00:00: mouth [place] 00 every Medical morning Branch and evening. enalapril 2021-0 Yes [id number] 2.5mg Take 1 U nivers 2.5 mg 3-10 tablet by ity of tablet 00:00: mouth [place] 00 daily. Medical Branch atorvastati 2021-0 Yes [id number] 40mg Take 1 Univers n 40 mg 3-10 tablet by ity of tablet 00:00: mouth at [place] 00 bedtime. Medical Branch isosorbide 2021-0 Yes [id number] 30mg Take 1 U nivers mononitrate 3-10 tablet by ity of 30 mg 24 hr 00:00: mouth 2 [place] tablet 00 (two) Medical times Branch daily. clopidogreL 2021-0 Yes [id number] 75mg Take 1 Univers 75 mg 3-10 tablet by ity of tablet 00:00: mouth [place] 00 daily. Medical Branch spironolact 2021-0 Yes [id number] 50mg Take 1 Univers one 50 mg 3-10 tablet by ity o f tablet 00:00: mouth [place] 00 daily. Medical Branch metoprolol 2021-0 Yes [id number] 25mg Take 1 U nivers succinate 3-10 tablet by ity o f XL 25 mg 24 00:00: mouth 2 [place] hr tablet 00 (two) Medical times Branch daily. KCL 20 mEq 2021-0 Yes [id number] 40meq Take 2 [facility] tablet 3-10 tablets by [facility] of 00:00: mouth [place] 00 daily. [facility] furosemide 2021-0 Yes [id number] 80mg Take 1 [facility] n[facility] 80 mg 3-10 tablet by [facility] tablet 00:00: mouth [place] 00 every Medical morning Branch and evening. enalapril 2021-0 Yes [id number] 2.5mg Take 1 [facility] nivers 2.5 mg 3-10 tablet by [facility] of tablet 00:00: mouth [place] 00 daily. [facility] atorvastati 2021-0 Yes [id number] 40mg Take 1 [facility] n 40 mg 3-10 tablet by [facility] of tablet 00:00: mouth at [place] 00 bedtime. Medical [facility] isosorbide 2021-0 Yes [id number] 30mg Take 1 [facility] n[facility] mononitrate 3-10 tablet by [facility] of 30 mg 24 hr 00:00: mouth 2 [place] tablet 00 (two) Medical times Branch daily. clopidogreL 2021-0 Yes [id number] 75mg Take 1 [facility] 75 mg 3-10 tablet by [facility] of tablet 00:00: mouth [place] 00 daily. [facility] spironolact 2021-0 Yes [id number] 50mg Take 1 [facility] one 50 mg 3-10 tablet by [facility]y o f tablet 00:00: mouth [place] 00 daily. [facility] metoprolol 2021-0 Yes [id number] 25mg Take 1 [facility] n[facility] succinate 3-10 tablet by ity o f XL 25 mg 24 00:00: mouth 2 [place] hr tablet 00 (two) Medical times Branch daily. KCL 20 mEq 2021-0 Yes [id number] 40meq Take 2 [facility] tablet 3-10 tablets by [facility] of 00:00: mouth [place] 00 daily. [facility] furosemide 2021-0 Yes [id number] 80mg Take 1 [facility] n[facility] 80 mg 3-10 tablet by [facility] of tablet 00:00: mouth [place] 00 every Medical morning Branch and evening. enalapril 0 Yes [id number] 2.5mg Take 1 [facility] n[facility] 2.5 mg 3-10 tablet by [facility] of tablet 00:00: mouth [place] 00 daily. [facility] atorvastati 0 Yes [id number] 40mg Take 1 [facility] n 40 mg 3-10 tablet by [facility] of tablet 00:00: mouth at [place] 00 bedtime. [facility] isosorbide 0 Yes [id number] 30mg Take 1 [facility] mononitrate 3-10 tablet by [facility] of 30 mg 24 hr 00:00: mouth 2 [place] tablet 00 (two) Medical times Branch daily. clopidogreL 0 Yes [id number] 75mg Take 1 [facility] 75 mg 3-10 tablet by [facility] of tablet 00:00: mouth [place] 00 daily. [facility] spironolact 0 Yes [id number] 50mg Take 1 [facility] one 50 mg 3-10 tablet by it[facility] o f tablet 00:00: mouth [place] 00 daily. [facility] metoprolol 0 Yes [id number] 25mg Take 1 [facility] n[facility] succinate 3-10 tablet by ity o f XL 25 mg 24 00:00: mouth 2 [place] hr tablet 00 (two) Medical times Branch daily. KCL 20 mEq 2021-0 Yes [id number] 40meq Take 2 [facility] tablet 3-10 tablets by [facility] of 00:00: mouth [place] 00 daily. [facility] furosemide 2021-0 Yes [id number] 80mg Take 1 [facility] 80 mg 3-10 tablet by [facility] tablet 00:00: mouth [place] 00 every Medical morning Branch and evening. enalapril 2021-0 Yes [id number] 2.5mg Take 1 [facility] 2.5 mg 3-10 tablet by [facility] of tablet 00:00: mouth [place] 00 daily. [facility] atorvastati 2021-0 Yes [id number] 40mg Take 1 [facility] n 40 mg 3-10 tablet by [facility] of tablet 00:00: mouth at [place] 00 bedtime. Medical [facility] isosorbide 2021-0 Yes [id number] 30mg Take 1 [facility] mononitrate 3-10 tablet by [facility] of 30 mg 24 hr 00:00: mouth 2 [place] tablet 00 (two) Medical times Branch daily. clopidogreL 2021-0 Yes [id number] 75mg Take 1 [facility] 75 mg 3-10 tablet by [facility] of tablet 00:00: mouth [place] 00 daily. [facility] spironolact 2021-0 Yes [id number] 50mg Take 1 [facility] one 50 mg 3-10 tablet by [facility] o f tablet 00:00: mouth [place] 00 daily. [facility] metoprolol 2021-0 Yes [id number] 25mg Take 1 [facility] n[facility] succinate 3-10 tablet by ity o f XL 25 mg 24 00:00: mouth 2 [place] hr tablet 00 (two) Medical times Branch daily. KCL 20 mEq 2021-0 Yes [id number] 40meq Take 2 [facility] tablet 3-10 tablets by [facility] of 00:00: mouth [place] 00 daily. [facility] furosemide 2021-0 Yes [id number] 80mg Take 1 [facility] 80 mg 3-10 tablet by [facility] of tablet 00:00: mouth [place] 00 every Medical morning Branch and evening. enalapril 2021-0 Yes [id number] 2.5mg Take 1 [facility] 2.5 mg 3-10 tablet by [facility] of tablet 00:00: mouth [place] 00 daily. [facility] atorvastati 2021-0 Yes [id number] 40mg Take 1 [facility] n 40 mg 3-10 tablet by [facility] of tablet 00:00: mouth at [place] 00 bedtime. Medical [facility] isosorbide 2021-0 Yes [id number] 30mg Take 1 [facility] mononitrate 3-10 tablet by [facility] of 30 mg 24 hr 00:00: mouth 2 [place] tablet 00 (two) Medical times Branch daily. clopidogreL 2021-0 Yes [id number] 75mg Take 1 [facility] 75 mg 3-10 tablet by [facility] of tablet 00:00: mouth [place] 00 daily. [facility] Branch spironolact Yes [id number] 50mg Take 1 [facility] one 50 mg 3-10 tablet by it[facility] o f tablet 00:00: mouth [place] 00 daily. [facility] metoprolol Yes [id number] 25mg Take 1 [facility] n[facility] succinate 3-10 tablet by ity o f XL 25 mg 24 00:00: mouth 2 [place] hr tablet 00 (two) Medical times Branch daily. KCL 20 mEq Yes [id number] 40meq Take 2 [facility] tablet 3-10 tablets by [facility] of 00:00: mouth [place] 00 daily. [facility] Branch furosemide Yes [id number] 80mg Take 1 [facility] nivers 80 mg 3-10 tablet by [facility] of tablet 00:00: mouth [place] 00 every Medical morning Branch and evening. enalapril Yes [id number] 2.5mg Take 1 [facility] 2.5 mg 3-10 tablet by [facility] of tablet 00:00: mouth [place] 00 daily. [facility] metoprolol 2021- No [id number] 25mg Take 1 [facility] succinate 3-10 12-07 tablet by [facility] of XL 25 mg 24 00:00: 00:00 mouth 2 [place] hr tablet 00 :00 (two) Medical times Branch daily. furosemide 2021- No [id number] 80mg Take 1 [facility] 80 mg 3-10 11-07 tablet by [facility] of tablet 00:00: 00:00 mouth [place] 00 :00 every Medical morning Branch and evening. spironolact 2021- No [id number] 50mg Take 1 [facility] one 50 mg 3-10 10-31 tablet by [facility] of tablet 00:00: 00:00 mouth [place] 00 :00 daily. Medical Branch atorvastati 2021- No [id number] 40mg Take 1 [facility] n 40 mg 3-10 09-30 tablet by [facility] of tablet 00:00: 00:00 mouth at [place] 00 :00 bedtime. Medical Branch tamsulosin 2020-05 Yes [id number] .4mg Take 1 [facility] 0.4 mg 24 1-17 capsule by [facility] of hr capsule 00:00: mouth [place] 00 daily. [facility] tamsulosin 2020-05 Yes [id number] .4mg Take 1 [facility] 0.4 mg 24 1-17 capsule by [facility] of hr capsule 00:00: mouth [place] 00 daily. [facility] Branch tamsulosin 2020-05 Yes [id number] .4mg Take 1 [facility] 0.4 mg 24 1-17 capsule by [facility] of hr capsule 00:00: mouth [place] 00 daily. [facility] Branch tamsulosin 2020-05 Yes [id number] .4mg Take 1 [facility] 0.4 mg 24 1-17 capsule by [facility] of hr capsule 00:00: mouth [place] 00 daily. [facility] Branch tamsulosin 2020-05 Yes [id number] .4mg Take 1 [facility] 0.4 mg 24 1-17 capsule by [facility] of hr capsule 00:00: mouth [place] 00 daily. [facility] tamsulosin 2020-05 Yes [id number] .4mg Take 1 [facility] 0.4 mg 24 1-17 capsule by [facility] of hr capsule 00:00: mouth [place] 00 daily. [facility] tamsulosin 2020-05 Yes [id number] .4mg Take 1 [facility] 0.4 mg 24 1-17 capsule by [facility] of hr capsule 00:00: mouth [place] 00 daily. [facility] tamsulosin 2020-05 Yes [id number] .4mg Take 1 [facility] 0.4 mg 24 1-17 capsule by [facility] of hr capsule 00:00: mouth [place] 00 daily. [facility] Branch tamsulosin 2020-05 Yes [id number] .4mg Take 1 [facility] 0.4 mg 24 1-17 capsule by [facility] of hr capsule 00:00: mouth [place] 00 daily. [facility] tamsulosin 2020-05 Yes [id number] .4mg Take 1 [facility] 0.4 mg 24 1-17 capsule by [facility] of hr capsule 00:00: mouth [place] 00 daily. [facility] tamsulosin 2020-05 Yes [id number] .4mg Take 1 [facility] 0.4 mg 24 1-17 capsule by [facility] of hr capsule 00:00: mouth [place] 00 daily. [facility] tamsulosin 2020-05 Yes [id number] .4mg Take 1 [facility] 0.4 mg 24 1-17 capsule by [facility] of hr capsule 00:00: mouth [place] 00 daily. [facility] tamsulosin 2020-05 Yes [id number] .4mg Take 1 [facility] 0.4 mg 24 1-17 capsule by [facility] of hr capsule 00:00: mouth [place] 00 daily. [facility] Branch acetaminoph 2020-05 Yes [id number] 1{tbl} Take 1 [...] (scale 4-6). Indication s: acute pain acetaminoph 2020- Yes [id number] 1{tbl} Take 1 [facility] en-codeine 0-28 tablet by [facility] of 300-30 mg 00:00: mouth [place] tablet 00 every 4 Medical (four) Branch hours as needed for Pain (scale 4-6). Indication s: acute pain acetaminoph 2020- Yes [id number] 1{tbl} Take 1 Un letitia [...] Pain (scale 4-6). Indication s: acute pain IBUPROFEN 2020-05 Yes [id number] TAKE ONE [facility] 600 mg 0-25 TABLET BY [facility] of tablet 00:00: MOUTH [place] 00 EVERY 6 Medical HOURS Branch NEEDED FOR PAIN IBUPROFEN 2020-05 Yes [id number] TAKE ONE [facility] 600 mg 0-25 TABLET BY it[facility] of tablet 00:00: MOUTH [place] 00 EVERY 6 Medical HOURS Branch NEEDED FOR PAIN IBUPROFEN 2020-05 Yes [id number] TAKE ONE [facility] 600 mg 0-25 TABLET BY it[facility] of tablet 00:00: MOUTH [place] 00 EVERY 6 Medical HOURS Branch NEEDED FOR PAIN IBUPROFEN 2020-05 Yes [id number] TAKE ONE [facility] 600 mg 0-25 TABLET BY [facility] of tablet 00:00: MOUTH EVERY 6 Medical HOURS Branch NEEDED FOR PAIN IBUPROFEN 2020-05 Yes [id number] TAKE ONE [facility] 600 mg 0-25 TABLET BY [facility] of tablet 00:00: MOUTH 00 EVERY 6 Medical HOURS Branch NEEDED FOR PAIN IBUPROFEN 2020-05 Yes [id number] TAKE ONE [facility] 600 mg 0-25 TABLET BY [facility] of tablet 00:00: MOUTH 00 EVERY 6 Medical HOURS Branch NEEDED FOR PAIN IBUPROFEN 2020-05 Yes [id number] TAKE ONE [facility] 600 mg 0-25 TABLET BY ity of tablet 00:00: MOUTH EVERY 6 Medical HOURS Branch NEEDED FOR PAIN IBUPROFEN 2020-05 Yes [id number] TAKE ONE [facility] 600 mg 0-25 TABLET BY it[facility] of tablet 00:00: MOUTH 00 EVERY 6 Medical HOURS Branch NEEDED FOR PAIN IBUPROFEN 2020-05 Yes [id number] TAKE ONE [facility] 600 mg 0-25 TABLET BY it[facility] of tablet 00:00: MOUTH EVERY 6 Medical HOURS Branch NEEDED FOR PAIN IBUPROFEN 2020-05 Yes [id number] TAKE ONE [facility] 600 mg 0-25 TABLET BY [facility] of tablet 00:00: MOUTH EVERY 6 Medical HOURS Branch NEEDED FOR PAIN IBUPROFEN 2020-05 Yes [id number] TAKE ONE [facility] 600 mg 0-25 TABLET BY it[facility] of tablet 00:00: MOUTH EVERY 6 Medical HOURS Branch NEEDED FOR PAIN IBUPROFEN 2020-05 Yes [id number] TAKE ONE [facility] 600 mg 0-25 TABLET BY ity of tablet 00:00: MOUTH EVERY 6 Medical HOURS Branch NEEDED FOR PAIN IBUPROFEN 2020-05 Yes [id number] TAKE ONE [facility] 600 mg 0-25 TABLET BY [facility] of tablet 00:00: MOUTH EVERY 6 Medical HOURS Branch NEEDED FOR PAIN tamsulosin 2020-0 Yes [id number] .4mg Take 1 [facility] 0.4 mg 24 8-24 capsule by [facility] hr capsule 00:00: mouth 00 daily. Medical Branch tamsulosin 2020-0 Yes [id number] .4mg Take 1 [facility] n[facility] 0.4 mg 24 8-24 capsule by [facility] of hr capsule 00:00: mouth [place] 00 daily. Medical Branch tamsulosin 2021-0 Yes [id number] .4mg Take 1 [facility] 0.4 mg 24 8-24 capsule by [facility] of hr capsule 00:00: mouth [place] 00 daily. Medical Branch tamsulosin 2021-0 Yes [id number] .4mg Take 1 [facility] 0.4 mg 24 8-24 capsule by [facility] of hr capsule 00:00: mouth [place] 00 daily. [facility] Branch tamsulosin 2021-0 Yes [id number] .4mg Take 1 [facility] 0.4 mg 24 8-24 capsule by [facility] of hr capsule 00:00: mouth [place] 00 daily. [facility] Branch tamsulosin 2021-0 Yes [id number] .4mg Take 1 [facility] 0.4 mg 24 8-24 capsule by [facility] of hr capsule 00:00: mouth [place] 00 daily. Medical Branch tamsulosin 2021-0 Yes [id number] .4mg Take 1 [facility] 0.4 mg 24 8-24 capsule by [facility] of hr capsule 00:00: mouth 00 daily. Medical Branch tamsulosin 1-0 Yes [id number] .4mg Take 1 [facility] 0.4 mg 24 8-24 capsule by [facility] of hr capsule 00:00: mouth 00 daily. Medical Branch tamsulosin 1-0 Yes [id number] .4mg Take 1 [facility] 0.4 mg 24 8-24 capsule by [facility] of hr capsule 00:00: mouth [place] 00 daily. Medical Branch tamsulosin 2021-0 Yes [id number] .4mg Take 1 [facility] 0.4 mg 24 8-24 capsule by [facility] of hr capsule 00:00: mouth [place] 00 daily. [facility] tamsulosin 2021-0 Yes [id number] .4mg Take 1 [facility] 0.4 mg 24 8-24 capsule by [facility] of hr capsule 00:00: mouth [place] 00 daily. Medical Branch tamsulosin 2021-0 Yes [id number] .4mg Take 1 [facility] 0.4 mg 24 8-24 capsule by [facility] of hr capsule 00:00: mouth [place] 00 daily. [facility] Branch tamsulosin 2021-0 Yes [id number] .4mg Take 1 [facility]ivers 0.4 mg 24 8-24 capsule by [facility] of hr capsule 00:00: mouth [place] 00 daily. Medical Branch polyethylen Yes [id number] 1{packe Take 1 [facility] e glycol 8-17 t} Packet by ity of 3350 00:00: mouth [place] (MIRALAX) 00 every 24 Medica l 17 gram (twenty-fo Branch powder ur) hours as needed for Constipati on. docusate Yes [id number] 250mg Take 1 [facility] [place] sodium 250 8-17 capsule by [facility] of mg capsule 00:00: mouth once [place] 00 daily as Medical needed for Branch Constipati on. ondansetron Yes [id number] 4mg Take 1 [facility] 4 mg 8-17 tablet by ity of disintegrat 00:00: mouth [place] ing tablet 00 every 4 Medica l (four) Branch hours as needed for Nausea and Vomiting (N/V). polyethylen Yes [id number] 1{packe Take 1 [facility] e glycol 8-17 t} Packet by ity of 3350 00:00: mouth [place] ([place]) 00 every 24 Medica l 17 gram (twenty-fo Branch powder ur) hours as needed for Constipati on. docusate Yes [id number] 250mg Take 1 [facility] [place] sodium 250 8-17 capsule by [facility] of mg capsule 00:00: mouth once [place] 00 daily as Medical needed for Branch Constipati on. ondansetron Yes [id number] 4mg Take 1 [facility] 4 mg 8-17 tablet by ity of disintegrat 00:00: mouth [place] ing tablet 00 every 4 Medica l (four) Branch hours as needed for Nausea and Vomiting (N/V). polyethylen Yes [id number] 1{packe Take 1 [facility] e glycol 8-17 t} Packet by ity of 3350 00:00: mouth [place] ([place]) 00 every 24 Medica l 17 gram (twenty-fo Branch powder ur) hours as needed for Constipati on. docusate Yes [id number] 250mg Take 1 [facility] [place] sodium 250 8-17 capsule by [facility] of mg capsule 00:00: mouth once [place] 00 daily as Medical needed for Branch Constipati on. ondansetron Yes [id number] 4mg Take 1 [facility] 4 mg 8-17 tablet by ity of disintegrat 00:00: mouth [place] ing tablet 00 every 4 Medica l (four) Branch hours as needed for Nausea and Vomiting (N/V). polyethylen Yes [id number] 1{packe Take 1 [facility] e glycol 8-17 t} Packet by ity of 3350 00:00: mouth [place] ([place]) 00 every 24 Medica l 17 gram (twenty-fo Branch powder ur) hours as needed for Constipati on. docusate Yes [id number] 250mg Take 1 [facility] [place] sodium 250 8-17 capsule by [facility] of mg capsule 00:00: mouth once [place] 00 daily as Medical needed for Branch Constipati on. ondansetron Yes [id number] 4mg Take 1 [facility] 4 mg 8-17 tablet by ity of disintegrat 00:00: mouth [place] ing tablet 00 every 4 Medica l (four) Branch hours as needed for Nausea and Vomiting (N/V). polyethylen Yes [id number] 1{packe Take 1 [facility] e glycol 8-17 t} Packet by ity of 3350 00:00: mouth [place] ([place]) 00 every 24 Medica l 17 gram (twenty-fo Branch powder ur) hours as needed for Constipati on. docusate Yes [id number] 250mg Take 1 [facility] [place] sodium 250 8-17 capsule by [facility] of mg capsule 00:00: mouth once [place] 00 daily as Medical needed for Branch Constipati on. ondansetron Yes [id number] 4mg Take 1 [facility] 4 mg 8-17 tablet by ity of disintegrat 00:00: mouth [place] ing tablet 00 every 4 Medica l (four) Branch hours as needed for Nausea and Vomiting (N/V). polyethylen Yes [id number] 1{packe Take 1 [facility] e glycol 8-17 t} Packet by ity of 3350 00:00: mouth [place] ([place]) 00 every 24 Medica l 17 gram (twenty-fo Branch powder ur) hours as needed for Constipati on. docusate Yes [id number] 250mg Take 1 [facility] [place] sodium 250 8-17 capsule by [facility] of mg capsule 00:00: mouth once [place] 00 daily as Medical needed for Branch Constipati on. ondansetron Yes [id number] 4mg Take 1 [facility] 4 mg 8-17 tablet by ity of disintegrat 00:00: mouth [place] ing tablet 00 every 4 Medica l (four) Branch hours as needed for Nausea and Vomiting (N/V). polyethylen Yes [id number] 1{packe Take 1 [facility] e glycol 8-17 t} Packet by ity of 3350 00:00: mouth [place] ([place]) 00 every 24 Medica l 17 gram (twenty-fo Branch powder ur) hours as needed for Constipati on. docusate Yes [id number] 250mg Take 1 [facility] [place] sodium 250 8-17 capsule by [facility] of mg capsule 00:00: mouth once [place] 00 daily as Medical needed for Branch Constipati on. ondansetron Yes [id number] 4mg Take 1 [facility] 4 mg 8-17 tablet by ity of disintegrat 00:00: mouth [place] ing tablet 00 every 4 Medica l (four) Branch hours as needed for Nausea and Vomiting (N/V). polyethylen Yes [id number] 1{packe Take 1 [facility] e glycol 8-17 t} Packet by ity of 3350 00:00: mouth [place] ([place]) 00 every 24 Medica l 17 gram (twenty-fo Branch powder ur) hours as needed for Constipati on. docusate Yes [id number] 250mg Take 1 [facility] [place] sodium 250 8-17 capsule by [facility] of mg capsule 00:00: mouth once [place] 00 daily as Medical needed for Branch Constipati on. ondansetron Yes [id number] 4mg Take 1 [facility] 4 mg 8-17 tablet by ity of disintegrat 00:00: mouth [place] ing tablet 00 every 4 Medica l (four) Branch hours as needed for Nausea and Vomiting (N/V). polyethylen Yes [id number] 1{packe Take 1 [facility] e glycol 8-17 t} Packet by ity of 3350 00:00: mouth [place] ([place]) 00 every 24 Medica l 17 gram (twenty-fo Branch powder ur) hours as needed for Constipati on. docusate Yes [id number] 250mg Take 1 [facility] [place] sodium 250 8-17 capsule by [facility] of mg capsule 00:00: mouth once [place] 00 daily as Medical needed for Branch Constipati on. ondansetron Yes [id number] 4mg Take 1 [facility] 4 mg 8-17 tablet by ity of disintegrat 00:00: mouth [place] ing tablet 00 every 4 Medica l (four) Branch hours as needed for Nausea and Vomiting (N/V). polyethylen Yes [id number] 1{packe Take 1 [facility] e glycol 8-17 t} Packet by ity of 3350 00:00: mouth [place] ([place]) 00 every 24 Medica l 17 gram (twenty-fo Branch powder ur) hours as needed for Constipati on. docusate Yes [id number] 250mg Take 1 [facility] [place] sodium 250 8-17 capsule by [facility] of mg capsule 00:00: mouth once [place] 00 daily as Medical needed for Branch Constipati on. ondansetron Yes [id number] 4mg Take 1 [facility] 4 mg 8-17 tablet by ity of disintegrat 00:00: mouth [place] ing tablet 00 every 4 Medica l (four) Branch hours as needed for Nausea and Vomiting (N/V). polyethylen Yes [id number] 1{packe Take 1 [facility] e glycol 8-17 t} Packet by ity of 3350 00:00: mouth [place] ([place]) 00 every 24 Medica l 17 gram (twenty-fo Branch powder ur) hours as needed for Constipati on. docusate Yes [id number] 250mg Take 1 [facility] [place] sodium 250 8-17 capsule by [facility] of mg capsule 00:00: mouth once [place] 00 daily as Medical needed for Branch Constipati on. ondansetron Yes [id number] 4mg Take 1 [facility] 4 mg 8-17 tablet by ity of disintegrat 00:00: mouth [place] ing tablet 00 every 4 Medica l (four) Branch hours as needed for Nausea and Vomiting (N/V). polyethylen Yes [id number] 1{packe Take 1 [facility] e glycol 8-17 t} Packet by ity of 3350 00:00: mouth [place] ([place]) 00 every 24 Medica l 17 gram (twenty-fo Branch powder ur) hours as needed for Constipati on. docusate Yes [id number] 250mg Take 1 [facility] [place] sodium 250 8-17 capsule by [facility] of mg capsule 00:00: mouth once [place] 00 daily as Medical needed for Branch Constipati on. ondansetron 0 Yes [id number] 4mg Take 1 [facility] 4 mg 8-17 tablet by ity of disintegrat 00:00: mouth [place] ing tablet 00 every 4 Medica l (four) Branch hours as needed for Nausea and Vomiting (N/V). polyethylen Yes [id number] 1{packe Take 1 [facility] e glycol 8-17 t} Packet by ity of 3350 00:00: mouth [place] ([place]) 00 every 24 Medica l 17 gram (twenty-fo Branch powder ur) hours as needed for Constipati on. docusate Yes [id number] 250mg Take 1 [facility] [place] sodium 250 8-17 capsule by [facility] of mg capsule 00:00: mouth once [place] 00 daily as Medical needed for Branch Constipati on. ondansetron Yes [id number] 4mg Take 1 [facility] 4 mg 8-17 tablet by ity of disintegrat 00:00: mouth [place] ing tablet 00 every 4 Medica l (four) Branch hours as needed for Nausea and Vomiting (N/V). acetaminoph 2021- No [id number] 650mg Take 2 [facility] en 8-13 08-14 tablets by ity of (TYLENOL) 00:00: 04:59 mouth [place] 325 mg 00 :00 every 6 Medical tablet (six) Branch hours as needed for Pain (scale 1-3) or Alternate with ibuprofen for pain scale 4-6. acetaminoph 2021- No [id number] 650mg Take 2 [facility] en 8-13 08-14 tablets by ity of (TYLENOL) 00:00: 04:59 mouth [place] 325 mg 00 :00 every 6 Medical tablet (six) Branch hours as needed for Pain (scale 1-3) or Alternate with ibuprofen for pain scale 4-6. acetaminoph 2021- No [id number] 650mg Take 2 [facility] en 8-13 08-14 tablets by ity of (TYLENOL) 00:00: 04:59 mouth [place] 325 mg 00 :00 every 6 Medical tablet (six) Branch hours as needed for Pain (scale 1-3) or Alternate with ibuprofen for pain scale 4-6. acetaminoph 2020-0 2022- No [id number] 650mg Take 2 [facility] en 8-13 08-14 tablets by ity of (TYLENOL) 00:00: 04:59 mouth [place] 325 mg 00 :00 every 6 Medical tablet (six) Branch hours as needed for Pain (scale 1-3) or Alternate with ibuprofen for pain scale 4-6. aspirin 81 2020-0 Yes [id number] 81mg Take 1 U nivers mg chewable 7-23 tablet by [facility]y of tablet 00:00: mouth [place] 00 daily. Medical Branch aspirin 81 2020-0 Yes [id number] 81mg Take 1 [facility] nivers mg chewable 7-23 tablet by ity of tablet 00:00: mouth [place] 00 daily. Medical Branch aspirin 81 2020-0 Yes [id number] 81mg Take 1 [facility] nivers mg chewable 7-23 tablet by [facility]y of tablet 00:00: mouth [place] 00 daily. Medical Branch aspirin 81 2020-0 Yes [id number] 81mg Take 1 [facility] nivers mg chewable 7-23 tablet by [facility]y of tablet 00:00: mouth [place] 00 daily. Medical Branch aspirin 81 2020-0 Yes [id number] 81mg Take 1 [facility] nivers mg chewable 7-23 tablet by [facility]y of tablet 00:00: mouth [place] 00 daily. Medical Branch aspirin 81 2020-0 Yes [id number] 81mg Take 1 [facility] nivers mg chewable 7-23 tablet by [facility]y of tablet 00:00: mouth [place] 00 daily. Medical Branch aspirin 81 2020-0 Yes [id number] 81mg Take 1 [facility] nivers mg chewable 7-23 tablet by [facility]y of tablet 00:00: mouth [place] 00 daily. Medical Branch aspirin 81 2020-0 Yes [id number] 81mg Take 1 [facility] nivers mg chewable 7-23 tablet by ity of tablet 00:00: mouth [place] 00 daily. Medical Branch aspirin 81 2020-0 Yes [id number] 81mg Take 1 [facility] nivers mg chewable 7-23 tablet by [facility]y of tablet 00:00: mouth [place] 00 daily. Medical Branch aspirin 81 2020-0 Yes [id number] 81mg Take 1 [facility] nivers mg chewable 7-23 tablet by [facility]y of tablet 00:00: mouth daily. Medical Branch aspirin 81 2020-0 Yes [id number] 81mg Take 1 [facility] nivers mg chewable 7-23 tablet by ity of tablet 00:00: mouth 00 daily. Medical Branch aspirin 81 1-0 Yes [id number] 81mg Take 1 [facility] nivers mg chewable 7-23 tablet by [facility]y of tablet 00:00: mouth 00 daily. Medical Branch aspirin 81 2020-0 Yes [id number] 81mg Take 1 [facility] nivers mg chewable 7-23 tablet by [facility]y of tablet 00:00: mouth daily. Medical Branch magnesium 2020-0 Yes [id number] 400mg Take 400 [facility] oxide 420 6-22 9100 mg by ity of mg Tab 00:00: mouth (two) Medical times Branch daily. magnesium 1-0 Yes [id number] 400mg Take 400 [facility] oxide 420 6-22 9100 mg by ity of mg Tab 00:00: mouth (two) Medical times Branch daily. magnesium 1-0 Yes [id number] 400mg Take 400 [facility] oxide 420 6-22 9100 mg by ity of mg Tab 00:00: mouth (two) Medical times Branch daily. magnesium 2021-0 Yes [id number] 400mg Take 400 [facility] oxide 420 6-22 9100 mg by ity of mg Tab 00:00: mouth (two) Medical times Branch daily. magnesium 2021-0 Yes [id number] 400mg Take 400 [facility] oxide 420 6-22 9100 mg by ity of mg Tab 00:00: mouth (two) Medical times Branch daily. magnesium 2021-0 Yes [id number] 400mg Take 400 [facility] oxide 420 6-22 9100 mg by ity of mg Tab 00:00: mouth 2 (two) Medical times Branch daily. magnesium 2021-0 Yes [id number] 400mg Take 400 [facility] oxide 420 6-22 9100 mg by ity of mg Tab 00:00: mouth 2 (two) Medical times Branch daily. magnesium 2021-0 Yes [id number] 400mg Take 400 [facility] oxide 420 6-22 9100 mg by ity of mg Tab 00:00: mouth 2 (two) Medical times Branch daily. magnesium 2021-0 Yes [id number] 400mg Take 400 [facility] oxide 420 6-22 9100 mg by ity of mg Tab 00:00: mouth 2 (two) Medical times Branch daily. magnesium 2021-0 Yes [id number] 400mg Take 400 [facility] oxide 420 6-22 9100 mg by ity of mg Tab 00:00: mouth 2 (two) Medical times Branch daily. magnesium 2021-0 Yes [id number] 400mg Take 400 [facility] oxide 420 6-22 9100 mg by ity of mg Tab 00:00: mouth 2 [place] (two) Medical times Branch daily. magnesium 2021-0 Yes [id number] 400mg Take 400 [facility] oxide 420 6-22 9100 mg by ity of mg Tab 00:00: mouth 2 [place] (two) Medical times Branch daily. magnesium 2021-0 Yes [id number] 400mg Take 400 [facility] oxide 420 6-22 9100 mg by ity of mg Tab 00:00: mouth [place] (two) Medical times Branch daily. nitroglycer 1-[id number] 1 [facility] in 0.4 mg 3-12 tablet ity of sublingual 00:00: under the [place] tablet 00 tongue Medical every 5 Branch (five) minutes as needed for Chest pain. nitroglycer 2021-[id number] 1 [facility] in 0.4 mg 3-12 tablet ity of sublingual 00:00: under the [place] tablet 00 tongue Medical every 5 Branch (five) minutes as needed for Chest pain. nitroglycer 2021-0 Yes [id number] .4mg Place 1 Univers in 0.4 mg 3-12 tablet ity of sublingual 00:00: [place] tablet 00 tongue Medical every 5 Branch (five) minutes as needed for Chest pain. nitroglycer 2021-[id number] 1 Univers in 0.4 mg 3-12 tablet ity of sublingual 00:00: [place] tablet 00 tongue Medical every 5 Branch (five) minutes as needed for Chest pain. nitroglycer 2021-[id number] 1 Univers in 0.4 mg 3-12 tablet ity of sublingual 00:00: [place] tablet 00 tongue Medical every 5 Branch (five) minutes as needed for Chest pain. nitroglycer 2021-[id number] 1 Univers in 0.4 mg 3-12 tablet ity of sublingual 00:00: [place] tablet 00 tongue Medical every 5 Branch (five) minutes as needed for Chest pain. nitroglycer 2021-[id number] 1 Univers in 0.4 mg 3-12 tablet ity of sublingual 00:00: [place] tablet 00 tongue Medical every 5 Branch (five) minutes as needed for Chest pain. nitroglycer 2021-[id number] 1 Univers in 0.4 mg 3-12 tablet ity of sublingual 00:00: [place] tablet 00 tongue Medical every 5 Branch (five) minutes as needed for Chest pain. nitroglycer 2021-[id number] 1 Univers in 0.4 mg 3-12 tablet ity of sublingual 00:00: [place] tablet 00 tongue Medical every 5 Branch (five) minutes as needed for Chest pain. nitroglycer 202-[id number] 1 Univers in 0.4 mg 3-12 tablet ity of sublingual 00:00: [place] tablet 00 tongue Medical every 5 Branch (five) minutes as needed for Chest pain. nitroglycer 2021-[id number] 1 Univers in 0.4 mg 3-12 tablet ity of sublingual 00:00: [place] 00 tongue Medical every 5 Branch (five) minutes as needed for Chest pain. nitroglycer 2021-[id number] 1 Univers in 0.4 mg 3-12 tablet ity of sublingual 00:00: [place] tablet 00 tongue Medical every 5 Branch (five) minutes as needed for Chest pain. nitroglycer 2021-[id number] 1 Univers in 0.4 mg 3-12 tablet ity of sublingual 00:00: [place] 00 tongue Medical every 5 Branch (five) minutes as needed for Chest pain. methadone 2016-05 Yes opioid 120mg QD Take [address] (DOLOPHINE) 2-12 withdrawal mg by L ukes 10 MG 14:06: symptoms mouth Medical tablet 28 daily. Center aspirin 81 2016-05 Yes 81mg QD Take [address] MG chewable 2-12 by mouth [facility] s tablet 14:06: daily. Medical 28 [place] ranitidine 2016-05 Yes 150mg Q.5D Take [address] (ZANTAC) 2-12 mg by [facility] 150 MG 14:06: mouth 2 Medical tablet 28 (two) Center times daily. Vital Signs Vital Name Observation Time Observation Value Comments Source Systolic blood 2021-10-25 15:05:00 108 mm[Hg] [facility] Diastolic blood 2021-10-25 15:05:00 69 mm[Hg] [facility] 2021-10-25 15:05:00 65 /min [facility] Body temperature 2021-10-25 15:05:00 36.06 [place] Respiratory rate 2021-10-25 15:05:00 16 /min [facility] Body height 2021-10-25 15:05:00 180.3 cm [facility] Body weight 2021-10-25 15:05:00 71.668 kg [facility] BMI 2021-10-25 15:05:00 22.04 kg/m2 [facility] Oxygen saturation in 2021-10-25 15:05:00 100 /min [facility] blood by [facility] Pulse oximetry [place] Height/Length 2021-05-25 12:18:51 180 cm Measured Weight Dosing 2021-05-25 12:18:51 72.40 kg Height/Length 2021-05-25 12:00:12 180 cm Measured Weight Dosing 2021-05-25 12:00:12 72.40 kg Height/Length 2021-05-25 11:53:38 180 cm Measured Weight Dosing 2021-05-25 11:53:38 72.40 kg Height/Length 2021-05-25 11:53:37 180 cm Measured Weight Dosing 2021-05-25 11:53:37 72.40 kg Height/Length 2021-05-25 11:53:34 180 cm Measured Weight Dosing 2021-05-25 11:53:34 72.40 kg Height/Length 2021-05-25 11:53:25 180 cm Measured Weight Dosing 2021-05-25 11:53:25 72.40 kg Height/Length 2019-11-10 15:13:37 Measured Body Temperature 2019-11-12 19:15:00 97.6 [degF] [facility] Heart Rate 2019-11-12 19:15:00 89 /min [facility] Respiratory rate 2019-11-12 19:15:00 18 /min [facility] BP Systolic 2019-11-12 19:15:00 126 mm[Hg] [facility] Health BP Diastolic 2019-11-12 19:15:00 96 mm[Hg] [facility] Heart Rate 2019-11-12 19:14:00 89 /min [facility] Respiratory rate 2019-11-12 19:14:00 18 /min [facility] BP Systolic 2019-11-12 19:14:00 126 mm[Hg] [facility] Health BP Diastolic 2019-11-12 19:14:00 96 mm[Hg] [facility] Health Weight 2019-11-12 11:11:00 161.06 [lb_av] [facility] BMI (Body Mass 2019-11-12 11:11:00 22.5 kg/m2 [facility] Index) Procedures Procedure Date / Time Performed Performing Clinician [facility] e MEDICAL 2022-01-18 05:01:00 Doctor Unassigned, No [facility] RELEASE/CLEARANCE Name Medical Branch FORMS ECG 2019-11-12 00:00:00 [facility] X-ray of chest, two 2019-11-12 00:00:00 [facility] views Plan of Care Planned Activity Planned Date Details Comments Source Future Scheduled Test Bacterial urine [facility] culture [code = [place] 630-4] Goal Patient referral [facility] . [code = 8070407 ] [place] Instructions Heart Failure, Adult IRINA Aguila (DC) [place] Encounters Start End Encounter Admission Attending Care Care Encounter Source Date/Time Date/Time Type Type Clinicians Facility Department ID 2021-03-06 Emergency [facility] [id number] Univers 15:57:06 [facility] [place] 2021-03-06 Outpatient Collin [facility] [id number] Univers 10:29:01 BILAL [facility] [place] 2021-03-06 Emergency [facility] [id number] Univers 07:36:16 ity of [facility] 2021-03-06 Outpatient AAMIR [facility] SUU [id number] Univers 07:10:36 BILAL ity of [facility] 2021-03-06 Emergency [facility] [id number] Univers 02:35:18 ity of [facility] 2021-03-03 Emergency [facility] [id number] Univers 14:16:46 ity of [facility] 2022-04-27 2022-04-27 Outpatient [facility] [id number] Univers 11:40:00 11:40:00 LEO ity [facility] 2022 2022 Outpatient Collin [facility] [id number] Univers 11:20:00 11:20:00 LEO ity [facility] 2022-04-11 2022-04-11 [facility] 1.2.840.114 [id number] Univers 00:00:00 00:00:00 Qiagiselajun [place] 350.1.13.10 ity [place] [phone] [address] 2022-03-12 2022-03-12 [facility] 1.2.840.114 [id number] Univers 00:00:00 00:00:00 Qiangjun [place] 350.1.13.10 ity of [place] [id number] [address] 2022-03-05 2022-03-05 [facility] 1.2.840.114 [id number] Univers 00:00:00 00:00:00 Qiangjun [place] 350.1.13.10 ity of [place] [id number] [address] 2022-02-02 2022-02-02 Outpatient Collin [facility] [id number] Univers 11:09:39 23:59:00 LEO ity of [facility] 2022-02-02 2022-02-02 Refill [facility] 1.2.840.114 [id number] Univers 00:00:00 00:00:00 Mauragiselaevelyn DAV 350.1.13.10 ity [place] [id number] Ut dic[address] 2022-01-31 2022-01-31 Refill [facility] 1.2.840.114 [id number] Univers 00:00:00 00:00:00 Johnnyevelyn [place] 350.1.13.10 ity [place] [id number] [address] 2022-01-18 2022-01-18 Telephone [facility] 1.2.822.725 [id number] Univers 00:00:00 00:00:00 Kacie DEMARCO 350.1.13.10 [place] [id number] [address] 2022-01-18 2022-01-18 Orders Doctor JAYLAN 1.2.840.114 [id number] Univers 00:00:00 00:00:00 Only Unassigned, JESUS MANUEL 350.1.13.10 ity of [place] [facility] 4.2.7.2.686 [place] as [id number] [address] 2022-01-15 2022-01-15 Outpatient R COLTON, [facility] [id number] Univers 13:00:00 13:00:00 KACIE issa o [facility] 2022-01-15 2022-01-15 [facility] [id number] Univers 13:00:00 13:00:00 KACIE issa o [facility] 2021-12-25 2021-12-25 Outpatient R COLTON [facility] [id number] Univers 10:20:00 10:20:00 KACIE issa o [facility] 2021-10-30 2021-10-30 Outpatient R BOO [facility] [id number] Univers 00:00:00 23:59:00 LEO ity of [facility] 2021-10-30 2021-10-30 Hospital PAYTON Haddad 1.2.840.114 [id number] Univers 00:00:00 23:59:00 Encounter Leo JESUS MANUEL 350.1.13.10 ity of [facility] 4.2.7.2.686 [place] as [id number] [address] 2021-10-30 2021-10-30 Telephone [facility] 1.2.219.268 [id number] Univers 00:00:00 00:00:00 Kacie DEMARCO 350.1.13.10 [place] [id number] Ut dical NAL 059 [facility] 2021-10-25 2021-10-25 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, 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 [facility] 1.2.840.114 [id number] Univers 10:30:00 10:45:00 Visit Kacie Vila 350.1.13.10 [place] [id number] Ut dical NAL 353 [facility] 2021-10-25 2021-10-25 Outpatient [facility] [id number] Univers 10:00:00 10:23:41 KACIE ity o f [facility] 2021-10-25 2021-10-25 Office [facility] 1..840.114 [id number] Univers 10:00:00 10:23:41 Visit Kacie DEMARCO 350.1.13.10 [place] [id number] Ut dical NAL 059 [facility] 2021-10-25 2021-10-25 Outpatient [facility] [id number] Univers 10:00:00 10:23:41 JOHNNYEVELYN ity o f [facility] 2021-10-20 2021-10-20 Telephone [facility] ..[id number] Univers 00:00:00 00:00:00 Kacie [place] 350.1.13.10 ity of [facility] 4[place] [id number] Ut dic[address] 2021-10-06 2021-10-06 Outpatient R COLTON, [facility] [id number] Univers 08:40:00 08:40:00 KACIE ity o [facility] 2021-10-06 2021-10-06 Outpatient R COLTON, [facility] [id number] Univers 08:40:00 08:40:00 KACIE jangy o [facility] 2021-10-03 2021-10-03 Outpatient R COLTON, [facility] [id number] Univers 09:11:29 23:59:00 KACIE jangy o [facility] 2021-10-03 2021-10-03 Outpatient R COLTON, [facility] [id number] Univers 09:11:29 09:11:29 KACIE jangy o [facility] 2021-10-03 2021-10-03 Outpatient R COLTON, [facility] [id number] Univers 00:00:00 00:00:00 MAURAEVELYN issa o [facility] 2021-10-03 2021-10-03 Orders Doctor JAYLAN 1.2.840.114 [id number] Univers 00:00:00 00:00:00 Only Unassigned, JESUS MANUEL 350.1.13.10 ity of [place] [facility] 4.2.7.2.686 [place] as [id number] [address] 2021-10-03 2021-10-03 Telephone [facility] 1.2.964.303 [id number] Univers 00:00:00 00:00:00 Qiagiselajun [place] 350.1.13.10 ity of [facility] [place] [id number] Ut dic[address] 2021-09-28 2021-09-28 Telephone [facility] 1.2.752.256 [id number] Univers 00:00:00 00:00:00 Qiagiselajun [place] 350.1.13.10 ity [place] [id number] Ut dical NAL 059 [facility] 2021-09-23 2021-09-23 Telephone [facility] 1.2.146.031 [id number] Univers 00:00:00 00:00:00 Qiagiselaevelyn [place] 350.1.13.10 ity of [place] [id number] Ut dical NAL 9 [facility] 2021-09-22 2021-09-22 Telephone [facility] 1.2.326.653 [id number] [facility] 00:00:00 00:00:00 Kacie SAAVEDRATON 350.1.13.10 ity of [facility] 4.2.7.2.[place] [id number] Ut dical NAL 059 [facility] 2021-09-18 2021-09-18 Outpatient [facility] [id number] Univers 09:09:53 23:59:00 KACIE issa o f [facility] 2021-09-18 2021-09-18 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, 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 [facility] 1.2.840.114 [id number] Univers 09:15:00 09:30:00 Visit Colton Kacie DEMARCO 350.1.13.10 ity of [place] [id number] Ut dical NAL 353 [facility] 2021-09-18 2021-09-18 Outpatient [facility] [id number] Univers 08:20:00 08:52:51 KACIE ity o f [facility] 2021-09-18 2021-09-18 Office [facility] 1.2.840.114 [id number] Univers 08:20:00 08:52:51 Visit Kacie DEMARCO 350.1.13.10 ity of [place] [id number] Ut dical NAL 9 [facility] 2021-07-28 2021-07-28 Outpatient R BOO [facility] [id number] Univers 11:20:00 11:20:00 LEO ity of [facility] 2021-07-28 2021-07-28 Outpatient R COLTON [facility] [id number] Univers 11:07:54 11:07:54 KACIE issa o f [facility] 2021-07-28 2021-07-28 Outpatient R BOO [facility] [id number] Univers 10:58:00 11:06:00 LEO ity [facility] 2021-07-13 2021-07-13 Outpatient R COLTON [facility] [id number] Univers 10:20:00 10:47:21 KACIE issa o f [facility] 2021-07-13 2021-07-13 Office [facility] 1.2.840.114 [id number] Univers 10:20:00 10:47:21 Visit Kacie DEMARCO 350.1.13.10 ity of [facility] [place] [id number] [address] 2021-06-08 2021-06-08 Letter [facility] 1.2.840.114 [id number] Univers 00:00:00 00:00:00 (Out) [facility] HEALTH 350.1.13.10 it y of [place] [id number] [address] OFFICE [facility] 2021-06-07 2021-06-07 Telephone [facility] 1.2.795.990 [id number] Univers 00:00:00 00:00:00 Leo HEALTH 350.1.13.10 it y of [place] [id number] [address] OFFICE [facility] 2021-05-17 2021-05-17 [place] [facility] 1.2.932.979 [id number] Univers 00:00:00 00:00:00 Kacie DEMARCO 350.1.13.10 ity of [facility] 4.[place] [id number] [address] 2021-05-15 2021-05-15 Outpatient R ELISABETH [facility] [id number] Univers 15:30:00 15:30:00 CORETTA issa [facility] 2021-05-15 2021-05-15 Outpatient R ELISABETH [facility] [id number] Univers 15:30:00 15:30:00 CORETTA issa [facility] 2021-03-27 2021-03-27 Outpatient [facility] [id number] Univers 00:00:00 23:59:00 LEO ity [facility] 2021-03-27 2021-03-27 [facility] PAYTON Haddad 1.2.840.114 [id number] Univers 00:00:00 23:59:00 Encounter Leo JESUS MANUEL 350.1.13.10 ity of [facility] 4.2.7.2.686 [place] [id number] [facility] 844 [place] 2021-03-27 2021-03-27 Office [facility] 1.2.840.114 [id number] Univers 08:01:40 09:15:57 Visit Hiren DEMARCO 350.1.13.10 i ty [facility] 4[place]2.7.[place] [id number] Ut dical [facility] 204 [facility] 2021-03-27 2021-03-27 [facility] [id number] Univers 08:00:00 09:15:57 [facility] 2021-03-27 2021-03-27 [facility] [id number] Univers 08:00:00 08:00:00 [facility] 2021-03-27 2021-03-27 Orders Doctor JAYLAN 1.2.840.114 [id number] Univers 00:00:00 00:00:00 Only Unassigned, JESUS MANUEL 350.1.13.10 ity of [place] [facility] 4.2.7.2.686 [place] [id number] [facility] 00[address] [place] 2021-03-22 2021-03-22 [facility] 1.2.840.114 [id number] Univers 09:44:29 23:59:00 Encounter Coretta Gibson DAV 350.1.13.10 ity of [place] [id number] [facility] 807 Branch 2021-03-22 2021-03-22 Outpatient R ELISABETH [facility] [id number] Univers 13:00:00 09:29:54 CORETTA ity of [facility] 2021-03-22 2021-03-22 Office [facility] 1.2.840.114 [id number] Univers 09:01:58 09:29:54 Visit Coretta Gibson DAV 350.1.13.10 ity of [facility] 4[address]2.7.2.[address] [facility] [id number] [facility] [address] BUILDING 2021-03-22 2021-03-22 Orders Doctor JAYLAN 1.2.840.114 [id number] Univers 00:00:00 00:00:00 Only Unassigned, JESUS MANUEL 350.1.13.10 ity of [place] [facility] 4.2.7.2.686 [place] [id number] [facility] 009 Branch 2021-03-09 2021-03-09 Telephone [facility] 1.2.286.114 [id number] Univers 00:00:00 00:00:00 Bilal HEALTH 350.1.13.10 it y of [place] [id number] [facility] [address] OFFICE BUILDING 2021-03-08 2021-03-08 Refill [facility] 1.2.840.114 [id number] Univers 00:00:00 00:00:00 Bilal HEALTH 350.1.13.10 it [place] of [place].2.[place] [facility] [id number] [facility] PRIMARY & [address] SPECIALTY CARE 2021-03-07 2021-03-07 Outpatient R BOO [facility] [id number] Univers 08:20:00 08:20:00 LEO ity of [facility] 2021-03-03 2021-03-03 Outpatient R COLTON [facility] [id number] Univers 15:20:00 15:20:00 KACIE issa o f [facility] 2021-03-02 2021-03-02 Emergency X [place] ROGERS [facility] ERT [id number] Univers 12:55:00 15:22:00 ity of [facility] 2021-03-02 2021-03-02 Emergency [place] Rogers [facility] 1.2.840.114 [id number] Univers 12:55:00 15:22:00 Maria Teresa [facility]TERRY 350.1.13.10 i ty [facility] 4.2.7.2.686 [facility] [id number] Medi ramses 084 Branch 2021-02-28 2021-02-28 Outpatient R AAMIR [facility] [id number] Univers 09:30:00 09:30:00 BILAL ity of [facility] 2021-02-27 2021-02-27 Refjia [facility] 1.2.840.114 [id number] Univers 00:00:00 00:00:00 Bilal HEALTH 350.1.13.10 it y of [place] 4.2.7.[address] [place] [address] [id number] [facility] Primary & [address] Specialty Care 2021-02-14 2021-02-14 Omi [facility] 1.2.840.114 [id number] Univers 00:00:00 00:00:00 Bilal HEALTH 350.1.13.10 it y of [place] 4.2.7.2.686 [facility] [id number] [facility] Primary & [address] Specialty Care 2021-02-07 2021-02-07 Outpatient R BOO [facility] [id number] Univers 09:20:00 09:20:00 LEO ity [facility] 2021-02-07 2021-02-07 Lani [facility] 1.2.312.264 [id number] Univers 00:00:00 00:00:00 Bilal HEALTH 350.1.13.10 it y of [place] 4.[address].7.[address] [place] [address] [id number] [facility] Primary & [address] Specialty Care 2021-01-31 2021-01-31 Omi Vila [facility] 1.2.840.114 [id number] Univers 00:00:00 00:00:00 Kacie Demarco 350.1.13.10 ity of [place] [id number] Ut dical nal 9 [facility] 2021-01-18 2021-01-18 Refjia [facility] 1.2.840.114 [id number] Univers 00:00:00 00:00:00 Kacie Demarco 350.1.13.10 ity of [place] [id number] Ut dical nal 9 [facility] 2021-01-17 2021-01-17 Out[facility] [id number] Univers 08:00:00 08:00:00 LEO ity [facility] 2020-12-28 2020-12-28 Telephone [facility] 1.2.154.694 [id number] Univers 00:00:00 00:00:00 Bilal HEALTH 350.1.13.10 it y of [place] 4.2.7.2.686 [facility] [id number] [facility] Primary & [address] Specialty Care 2020-12-27 2020-12-27 Office [facility] 1.2.840.114 [id number] Univers 15:22:11 16:26:16 Visit Bilsd HEALTH 350.1.13.10 it y of [place] 4.2.7.2.686 [facility] [id number] [facility] Primary & [address] Specialty Care 2020-12-27 2020-12-27 Outpatient [facility] [id number] Univers 16:00:00 16:00:00 BILAL ity of [facility] 2020-12-27 2020-12-27 Telephone [facility] 1.2.214.145 [id number] Univers 00:00:00 00:00:00 Bilal HEALTH 350.1.13.10 it y of [place] 4.2.7.2.686 [facility] [phone] Medi [facility] Primary & [address] Specialty Care 2020-12-19 2020-12-20 Emergency [facility] 1.2.101.018 [id number] Univers 17:54:00 00:29:00 Dong Demarco 350.1.13.10 i ty of [place] 4.2.7.2.686 [facility] [id number] [facility] 084 Branch 2020-12-20 2020-12-20 Telephone [facility] 1.2.667.213 [id number] Univers 00:00:00 00:00:00 Bilal HEALTH 350.1.13.10 it y of [place] 4.2.7.2.686 [facility] [id number] [facility] Primary & [address] Specialty Care 2020-12-16 2020-12-16 Hospital [facility] 1.2.840.114 [id number] Univers 08:17:00 13:29:00 Encounter Bilal Health 350.1.13.10 ity of [place] 4.2.7.2.[address] [place] [address] [id number] ([facility]) 2020-12-16 2020-12-16 Surgery [facility] 1.2.840.114 [id number] Univers 09:13:00 10:48:00 Bilal SPECIALTY [id number] ity of [facility] 4.2.7.2.[address] [place] [address] AT [phone] Ut dical AUBREE 020 [facility] 2020-12-16 2020-12-16 Orders Doctor JAYLAN [id number] Univers 00:00:00 00:00:00 Only Unassigned, JESUS MANUEL [id number] [facility]y of [facility] 4.2.7.2.686 [facility] [phone] [facility] [address] 2020-12-07 2020-12-07 Outpatient Collin [facility]AD [facility] [id number] Univers 10:15:00 10:15:00 LEO ity [facility] 2020-11-30 2020-11-30 Outpatient Collin HADDAD [facility] [id number] Univers 07:00:00 07:00:00 LEO ity [facility] 2020-11-23 2020-11-24 Leo Laws 1.2.840.114 [id number] Univers 10:43:00 14:10:00 Encounter Kelton Car[facility] [id number] ity of Hospital 4.2.7.2.686 [place] as [phone] [facility] [address] 2020-11-24 2020-11-24 [place] [facility] [id number] Univers 00:00:00 00:00:00 Leo [place] [id number] i [place] [phone] Ut dical [facility] 059 Branch [facility] 2020-11-23 2020-11-23 [facility] Leo Haddad 1.2.840.114 [id number] Univers 10:45:00 23:59:00 Encounter Kelton Carney [id number] ity of Hospital 4.2.7.2.686 [place] [phone] [facility] 807 Branch 2020-11-23 2020-11-23 [facility]patient [facility] [id number] Univers 07:00:00 07:00:00 LEO ity of [facility] 2020-11-23 2020-11-23 [facility] Payton Haddad 1.2.840.114 [id number] Univers 06:45:00 06:45:00 Encounter Leo Jesus Manuel [id number] ity of Hospital 4.2.7.2.686 [place] [phone] [facility] 247 Branch 2020-11-21 2020-11-21 [place] Payton Haddad 1.2.399.905 [id number] Univers 00:00:00 00:00:00 Leo Jesus Manuel [id number] it y of Hospital 4.2.7.2.686 [place] [phone] [facility] 039 Branch 2020-11-17 2020-11-17 [facility] 1.2.840.114 [id number] Univers 00:00:00 00:00:00 Management [facility] [id number] ity of Cancer 4.2.7.2.686 [facility] - [phone] Med ical [facility] 204 Branch 2020-11-16 2020-11-16 Telephone Payton Haddad 1.2.370.563 [id number] Univers 00:00:00 00:00:00 Leo Jesus Manuel [id number] it y of [facility] 4.2.7.2.686 [place] [phone] [facility] 039 Branch 2020-11-15 2020-11-15 Outpatient R [facility] [id number] Univers 11:00:00 11:00:00 LEO ity of [facility] 2020-11-15 2020-11-15 Office [facility] 1.2.840.114 [id number] Univers 10:35:52 10:55:52 Visit Leo Dav 350.1.13.10 i ty of [place] 4.2.7.2.686 [facility] [phone] Ut dical nal 059 [address] Building 2020-11-14 2020-11-14 Emergency [facility] 1.2.840.114 [id number] Univers 15:57:00 22:25:00 Freda Arita [place] [id number] ity of [place] 4.2.7.2.686 [facility] [phone] [facility] 084 Branch 2020-11-13 2020-11-13 Telephone [facility] [id number] Univers 00:00:00 00:00:00 Bilal HEALTH 350.1.13.10 it y of [place] 4.2.7.2.686 [facility] [phone] [facility] Primary & 204 Branch Specialty Care 2020-11-11 2020-11-11 Telephone [facility] 1.2.957.827 [id number] Univers 00:00:00 00:00:00 Bilal Health 350.1.13.10 it y of Cancer 4.2.7.2.686 [facility] - [phone] Med ical [facility] 204 Branch 2020-11-10 2020-11-10 Telephone [facility] 1.2.275.537 [id number] Univers 00:00:00 00:00:00 [facility] HEALTH [id number] it y of [place] 4.2.7.2.686 [facility] [phone] [facility] Primary & 204 Branch Specialty Care 2020-11-04 2020-11-04 Telephone [facility] 1.2.288.341 [id number] Univers 00:00:00 00:00:00 Kacie Demarco 350.1.13.10 it[place] [phone] [facility]59 [facility] 2020-11-03 2020-11-03 Office [facility] 1.2.840.114 [id number] Univers 13:43:21 15:59:05 Visit [facility] [id number] it y of [place] 4.2.7.2.686 [facility] [phone] [facility] Primary & 204 Branch Specialty Care 2020-11-03 2020-11-03 Outpatient R [facility] [id number] Univers 14:45:00 14:45:00 [facility] 2020-11-01 2020-11-01 Telephone [facility] 1.2.840.114 [id number] Univers 00:00:00 00:00:00 Hiren [place] 350.1.13.10 i [place] [phone] [facility] 204 [facility] 2020-10-27 2020-10-27 Office [facility] 1.2.840.114 [id number] Univers 10:45:40 11:48:57 Visit Hiren [place] 350.1.13.10 i ty [place] [phone] [facility] 204 [facility] 2020-10-27 2020-10-27 Outpatient R [facility] [id number] Univers 11:30:00 11:30:00 HIREN ity [facility] 2020-10-24 2020-10-25 Emergency Dong Lei [facility] 1.2.840. 114 [id number] Univers 12:22:00 14:34:00 Nati Rader 350.1.13.10 it[place] of [place] [id number] [facility] 081 [place] 2020-09-28 2020-09-28 Telephone [facility] 1.2.723.241 [id number] Univers 00:00:00 00:00:00 Kacie Demarco [id number] it[place] [phone] [address] 2020-09-23 2020-09-23 [facility] [id number] Univers 00:00:00 00:00:00 KACIE issa o [facility] 2020-08-31 2020-08-31 Office [facility] 1.2.840.114 [id number] Univers 15:14:49 15:46:54 Visit Kacie Demarco 350.1.13.10 it[place] [phone] [address] 2020-08-31 2020-08-31 Outpatient R [facility] [id number] Univers 15:20:00 15:20:00 KACIE jung [facility] 2020-08-17 2020-08-17 Outpatient [facility] [id number] Univers 15:00:00 15:00:00 KACIE issa o [facility] 2020-07-15 2020-07-15 Office [facility] 1.2.840.114 [id number] Univers 15:14:40 16:05:14 Visit Kacie Demarco 350.1.13.10 it[place] [phone] [address] 2020-07-15 2020-07-15 Outpatient [facility] [id number] Univers 15:40:00 15:40:00 KACIE ity o f [facility] 2020-07-15 2020-07-15 Outpatient R COLTON[facility] [id number] Univers 10:20:00 10:20:00 KACIE ity o f [facility] 2020-06-14 2020-06-14 Outpatient R COLTON[facility] [id number] Univers 08:20:00 08:20:00 KACIE jangy o f [facility] 2020-01-14 2020-01-14 Orders Doctor JAYLAN 1.2.840.114 [id number] Univers 00:00:00 00:00:00 Only Unassigned, JESUS MANUEL 350.1.13.10 ity of [place] [facility] 4.2.7.2.686 [place] [phone] [facility] 009 Branch 2020-01-04 2020-01-04 Transition Dinora Arriaga 1.2.840.114 [id number] Univers 00:00:00 00:00:00 of Care Mary To 350.1.13.10 i ty of [place] [phone] [facility] 403 Branch 2019-12-28 2020-01-01 [facility] [place] [facility] 1.2.840.1 14 [id number] Univers 18:49:00 18:40:00 Encounter [facility] 350.1.13.10 [place] [phone] [facility] 110 Branch (CLC) 2019-12-28 2019-12-28 Telephone [facility] [id number] Univers 00:00:00 00:00:00 Kacie Demarco 350.1.13.10 ity of [place] [phone] [facility] 059 [facility] 2019-11-12 2019-11-12 Departed SUNDAY HUA [id number] IRINA 11:20:00 19:16:[address] [facility] 2019-11-12 2019-11-12 Departed JAVID DE LA CRUZ [id number] CHRISTMargarita 11:09:00 19:16:00 Emergency JEFFERY [address] [facility] 2019-11-10 2019-11-10 Emergency MCSETX LINDA [id number] Medical 14:56:00 14:56:00 [facility] 2019-11-10 2019-11-10 Emergency MCSETX LINDA [id number] Medical 14:56:00 14:56:00 -[id number] [facility] 2019-10-20 2019-10-20 Transition Dinora De La O 1.2.840.114 [id number] Univers 00:00:00 00:00:00 of Care Allie To 350.1.13.10 it[place] [phone] [facility] 403 Branch 2019-10-14 2019-10-17 Inpatient [facility] [id number] Univers 13:37:00 13:20:00 NATI ity of [facility] 2019-10-14 2019-10-17 [facility] 1.2.840.114 [id number] Univers 13:37:00 13:20:00 Encounter Nati Demarco 350.1.13.10 ity of [place] [phone] [facility] 081 Branch 2019-10-14 2019-10-14 Office [facility] 1.2.840.114 [id number] Univers 11:45:44 13:08:45 Visit Kacie Demarco 350.1.13.10 it[place] 4[place]2.7.2.[place] [facility] [phone] Ut dical nal 059 Branch [facility] 2019-10-14 2019-10-14 Orders Doctor JAYLAN 1.2.840.114 [id number] Univers 00:00:00 00:00:00 Only Unassigned, JESUS MANUEL 350.1.13.10 ity of [place] [facility] 4.2.7.2.686 [place] [phone] [facility] 009 Branch 2019-09-22 2019-09-22 Transition Dinora De La O 1.2.840.114 [id number] Univers 00:00:00 00:00:00 of Care Allie To 350.1.13.10 it[place] of [place]2.[place].2.[place] [phone] [facility] 403 [place] 2019-09-16 2019-09-19 Inpatient U [facility] [id number] Univers 16:02:00 12:08:00 NATI ity [facility] 2019-09-16 2019-09-19 [facility] Nati Rader [facility] 1.2.840.1 [id number] Univers 16:02:00 12:08:00 Encounter Kacie Vila 350.1.13.10 ity of [place] 4.2.7.2.686 [facility] [phone] [place] 020091 [place] 2019-09-16 2019-09-16 Office [facility] 1.2.840.114 [id number] Univers 14:39:35 14:59:35 Visit Kacie Demarco 350.1.13.10 it[place] of [place] [phone] Ut dicsd nal [address] [place] [address] 2019-08-27 2019-08-27 Emergency X [facility] [id number] Univers 10:20:33 13:57:00 DONG lainenoa [facility] 2019-08-27 2019-08-27 Emergency [facility] [id number] Univers 10:20:33 13:57:00 Dong Demarco 350.1.13.10 i ty [place] 4[place].2.[place] [phone] [address] 2019-08-24 2019-08-24 Telephone [facility] [id number] Univers 00:00:00 00:00:00 Hamzah Demarco 350.1.13.10 ity of [place] [phone] Ut dical nal [address] [place] [address] 2019-08-20 2019-08-22 [facility] [id number] Univers 07:53:06 11:29:00 NATI ity [facility] 2019-08-20 2019-08-22 Emergency Dong Lei [facility] 1.2.840. 114 [id number] [facility] 07:53:06 11:29:00 Nati Rader 350.1.13.10 [facility] 4.2.7.2.686 [facility] [phone] [place] [address] Branch Results Test Description Test Time Test Comments Results Result Comments Source Whole blood cardiac troponin I measurement (mass/volume) 12:57:00 Test Item Value Reference Range Interpretation Comme nts Bedside Troponin I (test code = 22069-3) 0.01 ng/mL 0.00-0.06 [facility] Health[facility] blood cardiac troponin I measurement (mass/volume) 2019-11-12 12:57:00 Test Item Value Reference Range Interpretation Comments Bedside Troponin I (test code = 0.01 ng/mL 66600-6) Urinalysis specimen collection [id number] 12:45:00 Test Item Value Reference Range Interpretation Comments Urine Source (test code = 30705-8) URINE [facility] HealthColor of Urine by Oala2320-64-17 12:45:00 Test Item Value Reference Range Interpretation Comments Urine Color (test code = 47271-2) Yellow Yel-Sabi * [facility] HealthUrine clarity dmnztfiqzkxcg9134-66-78 12:45:00 Test Item Value Reference Range Interpretation Comments Urine Appearance (test code = 34027-4) Clear Clear * [facility] HealthUrine pH measurement by automated test gfmok0006-97-46 12:45:00 Test Item Value Reference Range Interpretation Comments Urine pH (test code = 58333-1) 6.0 5.0-8.0 [facility] HealthSpecific gravity of Urine by Automated test sfwvz3612-42-45 12:45:00 Test Item Value Reference Range Interpretation Comments Urine Specific [place] (test code = 1.023 1.005-1.030 47116-3) [facility] HealthUrine protein measurement by automated test strip (mass/volume) 2019-11-12 12:45:00 Test Item Value Reference Range Interpretation Comments Urine Protein (test code = 94180-0) 50 mg/dL Negative * [facility] HealthUrine glucose measurement by automated test strip (mass/volume) 2019-11-12 12:45:00 Test Item Value Reference Range Interpretation Comments Urine Glucose (UA) (test code Negative mg/dL Negative * = 66934-0) [facility] HealthUrine ketones measurement by automated test strip (mass/volume) 2019-11-12 12:45:00 Test Item Value Reference Range Interpretation Comments Urine Ketones (test code = Negative mg/dL Negative * 51697-6) [facility] HealthUrine erythrocytes count by automated test strip (number/volume) 2019-11-12 12:45:00 Test Item Value Reference Range Interpretation Comments Urine Occult Blood (test code = 1+ Negative * 72899-2) [facility] HealthUrine nitrite detection by automated test [id number] 12:45:00 Test Item Value Reference Range Interpretation Comments Urine Nitrite (test code = 65851-2) Negative Negative [facility] HealthUrine total bilirubin measurement by automated test strip (mass/volume)2019-11-12 12:45:00 Test Item Value Reference Range Interpretation Comments Urine Bilirubin (test code = Negative mg/dL Negative 04762-4) [facility] by automated test strip (mass/volume)2019-11-12 12:45:00 Test Item Value Reference Range Interpretation Comments Urine Urobilinogen (test code = 3.0 mg/dL 0.0-1.0 42061-1) [facility] HealthUrine leukocytes count by automated test strip (number/volume) 2019-11-12 12:45:00 Test Item Value Reference Range Interpretation Comments Urine Leukocyte Esterase Negative {Gabbie}/uL Negative (test code = 65460-7) [facility] HealthMicroscopic examination of ibiqc5766-56-42 12:45:00 Test Item Value Reference Range Interpretation Comments Microscopic Urinalysis (T) (test code = ----- 93406-1) [facility] HealthUrine sediment erythrocyte count by microscopy (number/high power field)2019-11-12 12:45:00 Test Item Value Reference Range Interpretation Comments Urine RBC (test code = 85411-2) 11-30 /[HPF] 0-2 [facility] HealthUrine sediment leukocyte count by microscopy (number/high [...] code = None Seen /[HPF] None * 52355-1) [facility] HealthUrine sediment bacteria count by microscopy [...] HealthYeast detection in urine sediment by light xlvyaxgllp3212-42-29 12:45:00 Test Item Value Reference Range Interpretation Comments Urine Yeast (test code = None Seen /[HPF] None 64184-3) [facility]Service comment 12:45:00 Test Item Value [...] follow = 8264-4) [facility] HealthUrinalysis specimen collection [id number] 12:45:00 Test Item Value Reference Range Interpretation Comments Urine Source (test code = 49753-1) URINE Color of Urine by Cald5116-96-15 12:45:00 Test Item Value Reference Range Interpretation Comments Urine Color (test code = 59592-9) Yellow Urine clarity boeadaohsxqxz4179-14-70 12:45:00 Test Item Value Reference Range Interpretation Comments Urine Appearance (test code = 38190-0) Clear Urine pH measurement by automated test gkklm1508-43-86 12:45:00 Test Item Value Reference Range Interpretation Comments Urine pH (test code = 02035-9) 6.0 Specific gravity of Urine by Automated test insoa0458-55-57 12:45:00 Test Item Value Reference Range Interpretation Comments Urine Specific Elton (test code = 1.023 46585-0) Urine protein measurement by automated test strip (mass/volume)2019-11-12 12:45:00 Test Item Value Reference Range Interpretation Comments Urine Protein (test code = 61000-6) 50 mg/dL Urine glucose measurement by automated test strip (mass/volume)2019-11-12 12:45:00 Test Item Value Reference Range Interpretation Comments Urine Glucose (UA) (test code Negative mg/dL = 47833-1) Urine ketones measurement by automated test strip (mass/volume)2019-11-12 12:45:00 Test Item Value Reference Range Interpretation Comments Urine Ketones (test code = Negative mg/dL 72015-4) Urine erythrocytes count by automated test strip (number/volume)2019-11-12 12:45:00 Test Item Value Reference Range Interpretation Comments Urine Occult Blood (test code = 1+ 45387-1) Urine nitrite detection by automated test wcidn4385-75-10 12:45:00 Test Item Value Reference Range Interpretation Comments Urine Nitrite (test code = 31451-3) Negative Urine total bilirubin measurement by automated test strip (mass/volume) 2019-11-12 12:45:00 Test Item Value Reference Range Interpretation Comments Urine Bilirubin (test code = Negative mg/dL 67623-7) Urine urobilinogen measurement by automated test strip (mass/volume)2019-11-12 12:45:00 Test Item Value Reference Range Interpretation Comments Urine Urobilinogen (test code = 3.0 mg/dL 26550-4) Urine leukocytes count by automated test strip (number/volume)2019-11-12 12:45:00 Test Item Value Reference Range Interpretation Comments Urine Leukocyte Esterase Negative {Gabbie}/uL (test code = 15124-0) Microscopic examination of vpdqy5694-09-17 12:45:00 Test Item Value Reference Range Interpretation Comments Microscopic Urinalysis (T) (test code = ----- 59729-0) Urine sediment erythrocyte count by microscopy (number/high power field) 2019-11-12 12:45:00 Test Item Value Reference Range Interpretation Comments Urine RBC (test code = 66645-5) 11-30 /[HPF] Urine sediment leukocyte count by microscopy (number/high power field)2019-11-12 12:45:00 Test Item Value Reference Range Interpretation Comments Urine WBC (test code = 5821-4) 6-20 /[HPF] Urine sediment epithelial cell count by microscopy (number/high power field) 2019-11-12 12:45:00 Test Item Value Reference Range Interpretation Comments Urine Epithelial Cells (test None Seen /[HPF] code = 5787-7) Urine sediment crystal count by microscopy (number/high power field)2019-11-12 12:45:00 Test Item Value Reference Range Interpretation Comments Urine Crystals (test code = None Seen /[HPF] 85817-8) Urine sediment bacteria count by microscopy (number/high power field)2019-11-12 12:45:00 Test Item Value Reference Range Interpretation Comments Urine Bacteria (test code = None Seen /[HPF] 5769-5) Urine sediment casts count by microscopy (number/low power field)2019-11-12 12:45:00 Test Item Value Reference Range Interpretation Comments Urine Casts (test code = Present /[LPF] 9842-6) Urine sediment hyaline cast count by microscopy (number/low power field) 2019-11-12 12:45:00 Test Item Value Reference Range Interpretation Comments Urine Hyaline Casts (test code = 2-5 /[LPF] 5796-8) Yeast detection in urine sediment by light ysnztmflkv7154-09-97 12:45:00 Test Item Value Reference Range Interpretation Comments Urine Yeast (test code = None Seen /[HPF] 65013-9) Service comment 12:45:00 Test Item Value Reference Range Interpretation Comments Urinalysis Comment (test code = 8262-8) * Service comment 12:45:00 Test Item Value Reference Range Interpretation Comments Urine Culture Indicated (test code To follow = 8264-4) Whole blood natriuretic peptide B measurement (mass/volume)2019-11-12 12:43:00 Test Item Value Reference Range Interpretation Comments Bedside B-Type Natriuretic Peptide 3006 pg/mL 0-99 (test code = 01038-7) [facility] HealthWhole blood natriuretic peptide B measurement (mass/volume) 2019-11-12 12:43:00 Test Item Value Reference Range Interpretation Comments Bedside B-Type Natriuretic Peptide 3006 pg/mL (test code = 35620-6) Whole blood hypochromia detection by light fvoyzwqygm0582-41-82 12:40:00 Test Item Value Reference Range Interpretation Comments Hypochromasia (test code = 728-6) 1+ [facility] HealthCrenated erythrocyte detection by light kblhjvkqhd8111-09-64 12:40:00 Test Item Value Reference Range Interpretation Comments Rosalia Cells/Echinocytes (test code = 1+ 7790-9) [facility] HealthBlood ovalocytes detection by light fldsmlgdgi6402-95-10 12:40:00 Test Item Value Reference Range Interpretation [...] Level (test code = 112 mmol/L 98-107 5-0) [facility] HealthSerum or plasma total carbon dioxide measurement (moles/volume) 2019-11-12 12:40:00 Test Item Value Reference Range Interpretation Comments Carbon Dioxide Level (test code = 21 mmol/L 22-29 2028-01) [facility] HealthSerum or plasma anion gap determination (moles/volume)2019-11-12 12:40:00 Test Item Value Reference Range Interpretation Comments Anion Gap (test code = 88107-5) 11 8-18 [facility] HealthSerum or plasma urea nitrogen measurement (mass/volume)2019-11-12 12:40:00 Test Item Value Reference Range Interpretation Comments Blood Urea Nitrogen (test code = 17 mg/dL 8- 3094-0) [facility] HealthSerum or plasma creatinine measurement (mass/volume)2019-11-12 12:40:00 Test Item Value Reference Range Interpretation Comments Creatinine (test code = 2160-0) 0.9 mg/dL 0.7-1.3 [facility] HealthGFR estimate [id number] 12:40:00 Test Item Value Reference Range Interpretation Comments Estimat Glomerular Filtration Rate 94 67-119 (test code = 45621-7) [facility] HealthSerum or plasma glucose measurement (mass/volume)2019-11-12 12:40:00 Test Item Value Reference Range Interpretation Comments Glucose Level (test code = 2345-7) 89 mg/dL 60-100 [facility] HealthSerum or plasma calcium measurement (mass/volume)2019-11-12 12:40:00 Test Item Value Reference Range Interpretation Comments Calcium Level (test code = 88943-4) 9.0 mg/dL 8.4-10.2 [facility] HealthSerum or plasma total bilirubin measurement (mass/volume) 2019-11-12 12:40:00 Test Item Value Reference Range Interpretation Comments Total Bilirubin (test code = 1.9 mg/dL 0.2-1.2 1975-2) [facility] HealthSerum or plasma aspartate aminotransferase measurement (enzymatic activity/volume)2019-11-12 12:40:00 Test Item Value Reference Range Interpretation Comments Aspartate Amino Transf (AST/SGOT) 23 U/L 5-34 (test code = 1920-8) [facility] HealthSerum or plasma alanine aminotransferase measurement (enzymatic activity/volume)2019-11-12 12:40:00 Test Item Value Reference Range Interpretation Comments Alanine Aminotransferase (ALT/SGPT) 22 U/L 0-55 (test code = 1742-6) [facility] HealthSerum or plasma protein measurement (mass/volume)2019-11-12 12:40:00 Test Item Value Reference [...] (test code = 718-7) 11.6 g/dL 13.0-17.5 [facility] HealthAutomated blood hematocrit (volume fraction)2019-11-12 12:40:00 Test [...] HealthAutomated erythrocyte mean corpuscular hemoglobin concentration measurement (mass/gaf3634-22-22 12:40:00 Test Item Value Reference Range Interpretation Comments Mean Corpuscular Hemoglobin Concent 29.7 g/dL 33.0-37.0 (test code = 786-4) [facility] HealthAutomated erythrocyte distribution width [id number] 12:40:00 Test Item Value Reference Range Interpretation Comments Red Cell Distribution Width (test code 22.7 % 10.7-14.5 = 788-0) [facility] HealthAutomated blood platelet count (count/volume)2019-11-12 12:40:00 Test Item Value Reference Range Interpretation Comments Platelet Count (test code = 237 10*3/uL 150-450 777-3) [facility] HealthAutomated blood platelet mean volume nvklkdyscau5751-40-52 12:40:00 Test Item Value Reference Range Interpretation Comments Mean Platelet Volume (test code = 11.7 5.7-10.7 06810-1) [facility] HealthAutomated blood neutrophil count as percentage of total jqwtlkcdsq5859-22-52 12:40:00 Test Item Value Reference Range Interpretation Comments Neutrophils (%) (Auto) (test code = 67 % 47-75 770-8) [facility] HealthAutomated blood immature granulocyte count as percentage of total npzobnakip3380-72-29 12:40:00 Test Item Value Reference Range Interpretation Comments Immature Granulocyte % (Auto) (test 0 % 0-0 code = 81169-5) [facility] HealthAutomated blood lymphocyte count as percentage of total yeknnlgzqx1546-45-40 12:40:00 Test Item Value Reference Range Interpretation Comments Lymphocytes (%) (Auto) (test code = 25 % 25-44 736-9) [facility]Automated blood monocyte count as percentage of total leukocytes 2019-11-12 12:40:00 Test Item Value Reference Range Interpretation Comments Monocytes (%) (Auto) (test code = 5 % 3-10 5905-5) [facility]Automated blood eosinophil count as percentage of total ghokpkjblq7536-90-18 12:40:00 Test Item Value Reference Range Interpretation Comments Eosinophils (%) (Auto) (test code = 1 % 0-7 713-8) [facility]Automated blood basophil count as percentage of total leukocytes 2019-11-12 12:40:00 Test Item Value Reference Range Interpretation Comments Basophils (%) (Auto) (test code = 1 % 0-1 706-2) [facility] HealthAutomated blood nucleated erythrocyte count as percentage of total xzjbiipqbj9126-09-51 12:40:00 Test Item Value Reference Range Interpretation Comments Nucleated Red Blood Cells % (test code 0.0 % 0-0.2 = 86616-5) [facility]Automated blood neutrophil count (number/volume)2019-11-12 12:40:00 Test Item Value Reference Range Interpretation Comments Neutrophils # (Auto) (test code = 5.6 10*3/uL 1.3-6.7 751-8) [facility]Automated blood immature granulocyte count as percentage of total ioorsyapdl5888-55-14 12:40:00 Test Item Value Reference Range Interpretation Comments Immature Granulocyte # (Auto) 0.0 10*3/uL 0.0-0.0 (test code = 42685-9) [facility]Automated blood lymphocyte count (number/volume)2019-11-12 12:40:00 Test Item Value Reference Range Interpretation Comments Lymphocytes # (Auto) (test code = 2.1 10*3/uL 1.4-4.1 731-0) [facility] [employer] e-MediaBlood monocytes automated count (number/volume)2019-11-12 12:40:00 Test Item Value Reference Range Interpretation Comments Monocytes # (Auto) (test code = 0.4 10*3/uL 0-1.3 742-7) [facility] HealthAutomated blood eosinophil qpqhz3839-90-09 12:40:00 Test Item Value Reference Range Interpretation Comments Eosinophils # (Auto) (test code = 0.1 10*3/uL 0-0.8 711-2) [facility]ated blood basophil count (number/volume)2019-11-12 12:40:00 Test Item Value Reference Range Interpretation Comments Basophils # (Auto) (test code = 0.1 10*3/uL 0-0.1 704-7) [facility] HealthAutomated blood nucleated erythrocyte count (count/volume) 2019-11-12 12:40:00 Test Item Value Reference Range Interpretation Comments Nucleated Red Blood Cells # 0.00 10*3/uL 0-0.01 (test code = 771-6) [facility] comment [id number] 12:40:00 Test Item Value Reference Range Interpretation Comments Manual Differential (test code Scan RBC Morph = 8265-1) [facility] HealthAutomated erythrocyte mean corpuscular volume (MCV) measurement 2019-11-12 12:40:00 Test Item Value Reference Range Interpretation Comments Mean Corpuscular Volume (test code = 90 fL 787-2) Serum or plasma calcium measurement (mass/volume)2019-11-12 12:40:00 Test Item Value Reference Range Interpretation Comments Calcium Level (test code = 61770-1) 9.0 mg/dL Serum or plasma total bilirubin measurement (mass/volume)2019-11-12 12:40:00 Test Item Value Reference Range Interpretation Comments Total Bilirubin (test code = 1.9 mg/dL 1975-2) Serum or plasma aspartate aminotransferase measurement (enzymatic activity/volume)2019-11-12 12:40:00 Test Item Value Reference Range Interpretation Comments Aspartate Amino Transf (AST/SGOT) 23 U/L (test code = 1920-8) Automated erythrocyte mean corpuscular hemoglobin (mass per erythrocyte) 2019-11-12 12:40:00 Test Item Value Reference Range Interpretation Comments Mean Corpuscular Hemoglobin (test 26.7 pg code = 785-6) Serum or plasma alanine aminotransferase measurement (enzymatic activity/volume) 2019-11-12 12:40:00 Test Item Value Reference Range Interpretation Comments Alanine Aminotransferase (ALT/SGPT) 22 U/L (test code = 1742-6) Serum or plasma protein measurement (mass/volume)2019-11-12 12:40:00 Test Item Value Reference Range Interpretation Comments Total Protein (test code = 2885-2) 6.8 g/dL Automated erythrocyte mean corpuscular hemoglobin concentration measurement (mass/dpm1164-64-29 12:40:00 Test Item Value Reference Range Interpretation Comments Mean Corpuscular Hemoglobin Concent 29.7 g/dL (test code = 786-4) Serum or plasma albumin measurement (mass/volume)2019-11-12 12:40:00 Test Item Value Reference Range Interpretation Comments Albumin (test code = 1751-7) 3.7 g/dL Serum or plasma alkaline phosphatase measurement (enzymatic activity/volume) 2019-11-12 12:40:00 Test Item Value Reference Range Interpretation Comments Alkaline Phosphatase (test code = 190 U/L 6768-6) Automated erythrocyte distribution width fklxz0663-44-22 12:40:00 Test Item Value Reference Range Interpretation Comments Red Cell Distribution Width (test code 22.7 % = 788-0) Automated blood platelet count (count/volume)2019-11-12 12:40:00 Test Item Value Reference Range Interpretation Comments Platelet Count (test code = 237 10*3/uL 777-3) Automated blood platelet mean volume kslnvcnymmo9413-68-90 12:40:00 Test Item Value Reference Range Interpretation Comments Mean Platelet Volume (test code = 11.7 88546-3) Automated blood neutrophil count as percentage of total zebtjxtmsf1141-06-88 12:40:00 Test Item Value Reference Range Interpretation Comments Neutrophils (%) (Auto) (test code = 67 % 770-8) Automated blood immature granulocyte count as percentage of total leukocytes 2019-11-12 12:40:00 Test Item Value Reference Range Interpretation Comments Immature Granulocyte % (Auto) (test 0 % code = 19872-0) Automated blood lymphocyte count as percentage of total vjfvnzeers7606-63-70 12:40:00 Test Item Value Reference Range Interpretation Comments Lymphocytes (%) (Auto) (test code = 25 % 736-9) Automated blood monocyte count as percentage of total pjnzzhuuot5669-76-75 12:40:00 Test Item Value Reference Range Interpretation Comments Monocytes (%) (Auto) (test code = 5 % 5905-5) Automated blood eosinophil count as percentage of total uhlyvebisk2174-74-01 12:40:00 Test Item Value Reference Range Interpretation Comments Eosinophils (%) (Auto) (test code = 1 % 713-8) Automated blood basophil count as percentage of total anqrifgoqt1015-50-83 12:40:00 Test Item Value Reference Range Interpretation Comments Basophils (%) (Auto) (test code = 1 % 706-2) Automated blood nucleated erythrocyte count as percentage of total leukocytes 2019-11-12 12:40:00 Test Item Value Reference Range Interpretation Comments Nucleated Red Blood Cells % (test code 0.0 % = 41973-9) Automated blood neutrophil count (number/volume)2019-11-12 12:40:00 Test Item Value Reference Range Interpretation Comments Neutrophils # (Auto) (test code = 5.6 10*3/uL 751-8) Automated blood immature granulocyte count as percentage of total leukocytes 2019-11-12 12:40:00 Test Item Value Reference Range Interpretation Comments Immature Granulocyte # (Auto) 0.0 10*3/uL (test code = 25925-1) Automated blood lymphocyte count (number/volume)2019-11-12 12:40:00 Test Item Value Reference Range Interpretation Comments Lymphocytes # (Auto) (test code = 2.1 10*3/uL 731-0) Blood monocytes automated count (number/volume)2019-11-12 12:40:00 Test Item Value Reference Range Interpretation Comments Monocytes # (Auto) (test code = 0.4 10*3/uL 742-7) Automated blood eosinophil oyiin3875-58-84 12:40:00 Test Item Value Reference Range Interpretation Comments Eosinophils # (Auto) (test code = 0.1 10*3/uL 711-2) Automated blood basophil count (number/volume)2019-11-12 12:40:00 Test Item Value Reference Range Interpretation Comments Basophils # (Auto) (test code = 0.1 10*3/uL 704-7) Automated blood nucleated erythrocyte count (count/volume)2019-11-12 12:40:00 Test Item Value Reference Range Interpretation Comments Nucleated Red Blood Cells # 0.00 10*3/uL (test code = 771-6) Service comment 12:40:00 Test Item Value Reference Range Interpretation Comments Manual Differential (test code Scan RBC Morph = 8265-1) Whole blood hypochromia detection by light kimtgpjhfm3217-38-25 12:40:00 Test Item Value Reference Range Interpretation Comments Hypochromasia (test code = 728-6) 1+ Crenated erythrocyte detection by light dkslvujewi5243-94-44 12:40:00 Test Item Value Reference Range Interpretation Comments Rosalia Cells/Echinocytes (test code = 1+ 7790-9) Blood ovalocytes detection by light ulorsqmkwu9985-55-86 12:40:00 Test Item Value Reference Range Interpretation Comments Ovalocytes (test code = 774-0) 1+ Automated blood leukocyte count (number/volume)2019-11-12 12:40:00 Test Item Value Reference Range Interpretation Comments White Blood Count (test code = 8.3 10*3/uL 6690-2) Blood erythrocytes automated count (number/volume)2019-11-12 12:40:00 Test Item Value Reference Range Interpretation Comments Red Blood Count (test code = 4.34 10*6/uL 789-8) Blood hemoglobin measurement (mass/volume)2019-11-12 12:40:00 Test Item Value Reference Range Interpretation Comments Hemoglobin (test code = 718-7) 11.6 g/dL Serum or plasma sodium measurement (moles/volume)2019-11-12 12:40:00 Test Item Value Reference Range Interpretation Comments Sodium Level (test code = 2951-2) 140 mmol/L Serum or plasma potassium measurement (moles/volume)2019-11-12 12:40:00 Test Item Value Reference Range Interpretation Comments Potassium Level (test code = 4.2 mmol/L 2823-3) Serum or plasma chloride measurement (moles/volume)2019-11-12 12:40:00 Test Item Value Reference Range Interpretation Comments Chloride Level (test code = 112 mmol/L 2075-0) Automated blood hematocrit (volume fraction)2019-11-12 12:40:00 Test Item Value Reference Range Interpretation Comments Hematocrit (test code = 4544-3) 39.1 % Serum or plasma total carbon dioxide measurement (moles/volume)2019-11-12 12:40:00 Test Item Value Reference Range Interpretation Comments Carbon Dioxide Level (test code = 21 mmol/L 2027-9) Serum or plasma anion gap determination (moles/volume)2019-11-12 12:40:00 Test Item Value Reference Range Interpretation Comments Anion Gap (test code = 75868-3) 11 Serum or plasma urea nitrogen measurement (mass/volume)2019-11-12 12:40:00 Test Item Value Reference Range Interpretation Comments Blood Urea Nitrogen (test code = 17 mg/dL 3094-0) Serum or plasma creatinine measurement (mass/volume)2019-11-12 12:40:00 Test Item Value Reference Range Interpretation Comments Creatinine (test code = 2160-0) 0.9 mg/dL GFR estimate [id number] 12:40:00 Test Item Value Reference Range Interpretation Comments Estimat Glomerular Filtration Rate 94 (test code = 53468-2) Serum or plasma glucose measurement (mass/volume)2019-11-12 12:40:00 Test Item Value Reference Range Interpretation Comments Glucose Level (test code = 2345-7) 89 mg/dL Pro B Natriuretic Yskhizg5792-03-30 19:54:07 Test Item Value Reference Range Interpretation Comments NT-proBNP (test 06860 pg/mL 0-125 H < 300 pg/ml - heart code = NT-proBNP) failure un likelyAge less than 50 years, > 450 pg/ml - heart f ailure lilkelyAge 50 - 75 years, > 900 pg /ml - heart failure l ikelyAge greater than 75 years, > 1800 pg/ml - he art failure likely POC Troponin [id number] 17:55:38 Test Item Value Reference Range Interpretation Comments Troponin I, POC 0.02 ng/mL 0.00-0.08 0.6-1.9 ng/m l may indicate (test code = Myocardial Ghazala ge2.0 ng/ml Troponin I, POC) is the diag nostic cutoff for Myocardial Damage. When diagnosing AMI, look for the serial rise and fall of TroponinAny con ditions resulting in my ocardial cell damage can potentiallyincr ease cardiac Troponin [...] CKMB, clinicalobserva tions, symptons, etc. Comprehensive Metabolic [id number] 16:12:49 Test Item Value Reference Range Interpretation [...] = AST) 32 IntlUnit/L 10-34 Comprehensive Metabolic Oacrq0680-56-29 16:12:49 Test Item Value Reference Range Interpretation [...] >60 mL/min/1.73 m2 N AA) Comprehensive Metabolic [id number] 16:12:49 Test Item Value Reference Range Interpretation [...] m2 N eGFR Non-AA) Prothrombin Time and [id number] 16:12:17 Test Item Value Reference Range Interpretation Comments Prothrombin Time (test code = 13.4 seconds 9.2-12.0 H Prothrombin Time) INR (test code = INR) 1.4 ratio 0.9-1.2 H Partial Thromboplastin [id number] 16:12:17 Test Item Value Reference Range Interpretation Comments Partial Thromboplastin 27.2 seconds 24.0-35.0 APTT Heparin Time (test code = Theraputic Range Partial Thromboplastin 47.9- 80.4 sec Time) Automated Ixljufzwxsuc7926-91-13 15:54:08 Test Item Value Reference Range Interpretation Comments Neutro Auto (test code = Neutro Auto) 47.3 % N Lymph Auto (test code = Lymph Auto) 43.0 % N Sumner Auto (test code = Sumner Auto) 6.8 % N Eos, Auto (test code = Eos, Auto) 2.3 % N Basophil Auto (test code = Basophil 0.6 % N Auto) Neutro Absolute (test code = Neutro 3.0 x10 2.7-7.3 Absolute) Lymph Absolute (test code = Lymph 2.8 x10 0.8-3.5 Absolute) Sumner Absolute (test code = Sumner 0.4 x10 0.3-0.9 Absolute) Eos Absolute (test code = Eos 0.2 x10 0.0-0.3 Absolute) Baso Absolute (test code = Baso 0.0 x10 0.0-0.1 Absolute) Complete Blood Count with Manxgjtpgjss7074-08-49 15:54:07 Test Item Value Reference Range Interpretation [...] = 6.4 N Instr WBC) POC Troponin [id number] 15:52:59 Test Item Value Reference Range Interpretation Comments Troponin I, POC 0.01 ng/mL 0.00-0.08 0.6-1.9 ng/m l may indicate (test code = Myocardial Ghazala ge2.0 ng/ml Troponin I, POC) is the diag nostic cutoff for Myocardial Damage. When diagnosing AMI, look for the serial rise and fall of TroponinAny con ditions resulting in my ocardial cell damage can potentiallyincr ease cardiac Troponin [...] tions, symptons, etc. XR Chest 1 View Lpyohol6701-41-23 15:36:49Patient: ANAHY PONCE Date/Time11/10/2019 15:35 CDTReason for ExamChest painReportEXAM: Chest, 1 View at 1526.TECHNIQUE: AP semiupright view.COMPARISON: NoneHISTORY: Chest painFINDINGS: Cardiac size and pulmonary vascularity are within normal limits for AP technique. No infiltrate or pleural effusion is seen. Structures are grossly intact.IMPRESSION: No acute appearing cardiopulmonary changes are seen. Final Dictated by: MD Capo, SamerDictated DT/TM: 11/10/2019 3:36pmSigned by: MD Capo, SamerSigned (Electronic Signature): 11/10/2019 3:36 pmCOMPREHENSIVE METABOLIC [id number] 08:21:00 Test Item Value Reference Range Interpretation [...] 1 NORMAL code = LIPINDEX) MG Index/DL [id number] 08:21:00 Test Item Value Reference Range Interpretation [...] change s in troponin levelscharacter istic of DE. COMPREHENSIVE METABOLIC [id number] 07:28:00 Test Item Value Reference Range Interpretation [...] 1 NORMAL code = LIPINDEX) MG Index/DL [id number] 07:28:00 Test Item Value Reference Range Interpretation Comments TROPONIN-I (test code = TROPI) NG/ML 0.000-0.045 COMPREHENSIVE METABOLIC [id number] 07:26:00 Test Item Value Reference Range Interpretation [...] 1 NORMAL code = LIPINDEX) MG Index/DL [id number] 07:26:00 Test Item Value Reference Range Interpretation Comments TROPONIN-I (test code = TROPI) NG/ML 0.000-0.045 CBC W/AUTO [id number] 07:06:00 Test Item Value Reference Range Interpretation [...] code = 0.00 K/mm3 0.00-0.05 N NRBC#) [id number] 00:55:00 Test Item Value Reference Range Interpretation [...] change s in troponin levelscharacter istic of DE. [id number] 21:24:00 Test Item Value Reference Range Interpretation Comments TROPONIN-I 15.100 NG/ML 0.000-0.045 HH centrifugation, (test code = rerun/recheck f rom primary TROPI) tube. ON AT 2124, B.LAB.JOHN Dueñas TO LEYDI TARIQ. The repo rt was confirmed by re ad back protocols Y,N: YES. Critical values after th e first occurrence are excluded.An elevated tropon in value alone is not [...] change s in troponin levelscharacter istic of DE. COMPREHENSIVE METABOLIC [id number] 18:32:00 Test Item Value Reference Range Interpretation [...] code = LIPINDEX) MG Index/DL COMPREHENSIVE METABOLIC [id number] 18:29:00 Test Item Value Reference Range Interpretation [...] 1 NORMAL = LIPINDEX) Index/DL PT AND [id number] 18:14:00 Test Item Value Reference Interpretation Comments Range PT PATIENT (test 12.2 SECONDS 9.4-12.5 N code = PTP) INTERNATIONAL 1.05 INR 0.88-1.13 N NORMAL RATIO (test Unit --------- code = INR) ---------Therap eutic range for INR i s dependent upon the situation.2.0-3 .0 Prophylaxis / v enous thromboembolism , Treatment of DV T, Acute myocardial infa rction stroke preventi on, Systemic emboli sm prevention in fibrillation3.0 -4.5 AMI recurrence prev ention, Systemic emboli sm prevention in p rosthetic heart 3.0-5.4 A DE mortality reduc tion THROMBOPLASTIN TIME 23.5 SECONDS 24-37.7 L THERAPEU TIC RANGE FOR PARTIAL (test code UNFRACTIO NATED HEPARIN = = PTT) 50.5-83.6 SEC T his test is not recommen ded to monitor low molecularweight heparin or danaparoid. Order LMWH test COLLECTION THROUGH LINES THAT HAVE BEEN PREVIOUSLY FLUS HEDWITH HEPARIN SHOULD BE AVOIDED DUE TO POSSIBLE HEPARINCONTAMIN ATION - CT HEAD/BRAIN W/O [id number] 18:12:00 Patient Name: ANAHY PONCE Unit No: [id number] EXAMS: CPT CODE: [id number] CT HEAD/BRAIN W/O [id number] Location: T18 CT head, 02/18/19 COMPARISON EXAMS:None of the brain TECHNIQUE: CT examination of the brain was performed without contrast on a helical scanner. Scanning conducted from skull base to vertex in the axial plane acquiring contiguous 5mm slice thickness . The examination was performed on a [facility] at helical CT scanner utilizing low-dose radiation technique. Automatic exposure control timing was utilized to minimize radiation dose. CLINICAL HISTORY: The patient is status post fall on Plavix. FINDINGS: No positive mass-effect, midline shift, extra-axial fluid collections or intracranial hemorrhages seen. In particular, no subarachnoid hemorrhage is identified. No intra or extra-axial masses. Bone windows unremarkable. No significant sinus disease is noted. No acute territorial infarction is seen. Small hypodensity in the region of the medial middle aspect of left lateral basal ganglia concern for a tiny age- indeterminate lacunar infarct more likely at least subacute having a somewhat well-defined margins IMPRESSION: No intracranial hemorrhage or space-occupying process. at 1812 Reported and signed by: Izabel Murray M.D. CC: Devin Loredo DO Dictated Date/Time: 02/18/2019 (1811) Technologist: Sarai Larry - Agency CTDI: 46.15 DLP: 757.79 Trnscrpt: 02/18/2019 (1811) [email or web address] ELPIDIO Dorado NAME: ANAHY PONCE [address] [place] [address] PHYS: KARY. - Devin Loredo, [id number] : 1965 AGE: 53 SEX: M LOC: NAE PHONE #: [phone] EXAM DATE: 02/18/2019 STATUS: PRE ER FAX #: [phone] RAD #: D/C DT PAGE 1 Signed Report Patient Name: ANAHY PONCE Unit No: [id number] EXAMS: CPT CODE: [id number] CT HEAD/BRAIN W/O CONT 95133 (Continued) Orig Print D/T: S: 02/18/2019 (1815) ELPIDIO Estrada NAME: ANAHY PONCE [address] [place] [address] Blvd PHYS: KARY.Ceci - Devin Loredo, [place] [address] : 1965 AGE: 53 SEX: M LOC: B.ERS PHONE #: [phone] EXAM DATE: 02/18/2019 STATUS: PRE ER FAX #: [phone] RAD #:D/C DT PAGE 2 Signed ReportTROPONIN I RAPID 2019-02-18 18:08:00 Test Item Value Reference Range Interpretation [...] change s in troponin levelscharacter istic of DE. CHEMISTRY 7 [id number] 18:03:00 Test Item Value Reference Range Interpretation [...] 56-130 N code = GFRBED) CHEMISTRY 7 [id number] 18:03:00 Test Item Value Reference Range Interpretation [...] POC (test code = GFRBED) CBC W/AUTO [id number] 18:03:00 Test Item Value Reference Range Interpretation [...] pg/mL 0-100 H (test code = 700) [id number] 15:20:00 Test Item Value Reference Range Interpretation Comments MAGNESIUM (BEAKER) (test code = 1.8 mg/dL 1.6-2.6 627) BASIC METABOLIC [id number] 15:20:00 Test Item Value Reference Range Interpretation [...] 697) EGFR (BEAKER) (test 72 mL/min/1.73 ESTIMA JARED GFR IS code = 1092) sq m NOT ACCURATE CREATININE CLEARANCE IN PREDICTING GLOMERULAR FILTRATION RATE . ESTIMATED GFR I S NOT APPLICABLE FOR DIALYSIS PATIEN TS. TROPONIN [id number] 04:40:00 Test Item Value Reference Range Interpretation Comments TROPONIN I (BEAKER) (test code = 3.39 ng/mL 0.00-0.03 HH 397) Troponin I (TnI) [...] failure, acidosis, acute neurological disease, and persistent tachyarrhythmia.[id number] 04:23:00 Test Item Value Reference Range Interpretation Comments MAGNESIUM (BEAKER) (test code = 2.2 mg/dL 1.6-2.6 627) BASIC METABOLIC [id number] 04:23:00 Test Item Value Reference Range Interpretation [...] 697) EGFR (BEAKER) (test 70 mL/min/1.73 ESTIMA JARED GFR IS code = 1092) sq m [...] 0-0 (BEAKER) (test code = 413) TROPONIN [id number] 11:34:00 Test Item Value Reference Range Interpretation [...] failure, acidosis, acute neurological disease, and persistent tachyarrhythmia.[id number] 06:25:00 Test Item Value Reference Range Interpretation Comments MAGNESIUM (BEAKER) (test code = 2.0 mg/dL 1.6-2.6 627) BASIC METABOLIC [id number] 06:25:00 Test Item Value Reference Range Interpretation [...] 697) EGFR (BEAKER) (test 88 mL/min/1.73 ESTIMA JARED GFR IS code = 1092) sq m [...] WBC 0-0 (BEAKER) (test code = 413) [id number] 07:49:00 Test Item Value Reference Range Interpretation Comments MAGNESIUM (BEAKER) (test code = 2.0 mg/dL 1.6-2.6 627) TROPONIN [id number] 05:48:00 Test Item Value Reference Range Interpretation [...] acute neurological disease, and persistent tachyarrhythmia.COMPREHENSIVE METABOLIC [id number] 05:42:00 Test Item Value Reference Range Interpretation [...] PATIEN TS. RAD, CHEST, 1 VIEW, NON [id number] 05:07:00Reason for exam:->IABPFINAL REPORT RAD, CHEST, 1 VIEW, NON DEPT INDICATION: IABP COMPARISON: Prior day's exam FINDINGS: Portable frontal view of the chest. IMPRESSION: Support Lines: Stable positioning of intra-aortic balloon pump marker projecting over the aortic arch. Lungs and pleura: Congestive inte rstitial changes, right greater than left, are stable. No new effusion. No pneumothorax.Heart and mediastinum: No interval change in the appearance of the mediastinal contours.Additional findings: None. Signed: JR Fuentes Robert MDReport Verified Date/Time: 04/05/2017 05:07:01 Reading Location:[facility] C013Y CT Body Reading Room [id number] 04:15:00 Test Item Value Reference Range Interpretation Comments FERRITIN (BEAKER) (test code = 361) 141 ng/mL 5-275 CREATINE KINASE (CK), TOTAL AND [id number] 04:04:00 Test Item Value Reference Range Interpretation [...] % 20-55 L (test code = 2590) [id number] 03:56:00 Test Item Value Reference Range Interpretation Comments MAGNESIUM (BEAKER) (test code = 1.6 mg/dL 1.6-2.6 627) CBC W/PLT COUNT & AUTO [id number] 03:38:00 Test Item Value Reference Range Interpretation [...] PERCENT (BEAKER) (test code = 2801) TROPONIN [id number] 19:07:00 Test Item Value Reference Range Interpretation [...] = 395) CK-MB Reference Range:<6.7 Normal6.7-10.0 Borderline>10.0 Abnormal HEMOGLOBIN [id number] 17:50:00 Test Item Value Reference Range Interpretation Comments HEMOGLOBIN A1C (BEAKER) (test code = 5.3 % 4.3-6.1 368) RAD, CHEST, 1 VIEW, NON [id number] 17:49:00Reason for exam:->eval for PVCShould this be performed at the bedside?->YesFINAL REPORT TECHNIQUE: Frontal chest radiograph dated 04/04/2017. CLINICAL HISTORY: Eval for PVC COMPARISON STUDY: None IMPRESSION:There are bilateral, airspace opacities in a distribution typical of pulmonary edema. Differential also includes pneumonia. A radiodense marker projects over the aortic arch at the level of T5-T6. Lungs are clear. No pleural effusion or pneumothorax. Cardiomediastinal silhouette is normal in size. No fracture. Signed: Conchita Pradoepaurelia Verified Date/Time: 04/04/2017 17:49:35 Reading Location: [facility] Radiology Reading Room TROPONIN [id number] 11:58:00 Test Item Value Reference Range Interpretation Comments TROPONIN I (BEAKER) (test code = 4.95 ng/mL 0.00-0.03 HH 397) Troponin I (TnI) [...] Normal6.7-10.0 Borderline>10.0 AbnormalCBC W/PLT COUNT & AUTO [id number] 11:49:00 Test Item Value Reference Range Interpretation [...] pg/mL 0-100 H (test code = 700) [id number] 11:42:00 Test Item Value Reference Range Interpretation Comments PHOSPHORUS (BEAKER) (test code = 2.2 mg/dL 2.3-4.7 L 604) [id number] 11:42:00 Test Item Value Reference Range Interpretation Comments MAGNESIUM (BEAKER) (test code = 2.1 mg/dL 1.6-2.6 627) COMPREHENSIVE METABOLIC [id number] 11:42:00 Test Item Value Reference Range Interpretation [...] 347) EGFR (BEAKER) (test 80 mL/min/1.73 ESTIMA JARED GFR IS code = 1092) sq m NOT ACCURATE CREATININE CLEARANCE IN PREDICTING GLOMERULAR FILTRATION RATE . ESTIMATED GFR I S NOT APPLICABLE FOR DIALYSIS PATIEN TS. LIPID [id number] 11:42:00 Test Item Value Reference Range Interpretation Comments TRIGLYCERIDES (BEAKER) (test code = 59 mg/dL 540) CHOLESTEROL (BEAKER) (test code = 215 mg/dL 631) HDL CHOLESTEROL (FruitfulllAKER) (test code 30 mg/dL = 976) LDL CHOLESTEROL CALCULATED (FruitfulllAKER) 173 mg/dL (test code = 633) Triglyceride Reference Range: Low Risk <150 Borderline 150-199 High Risk 200- 499 Very High Risk >=500Cholesterol Reference Range: Low Risk <200 Borderline 200-239 High Risk >240HDL Cholesterol Reference Range: Low Risk >=60 High Risk <40LDL Cholesterol Reference Range: Optimal <100 Near Optimal 100-129 Borderline 130-159 High 160-189 Very High [id number] 11:31:00 Test Item Value Reference Range Interpretation Comments PARTIAL THROMBOPLASTIN TIME 165.8 seconds 22.5-36.0 HH ([employer]) (test code = 760) PROTHROMBIN [id number] 11:25:00 Test Item Value Reference Range Interpretation Comments PROTIME ([employer]) (test code = 16.0 seconds 11.7-14.7 H 759) INR ([employer]) (test code = 370) 1.3 <=5.9 RECOMMENDED COUMADIN/WARFARIN INR THERAPY RANGESSTANDARD DOSE: 2.0 - 3.0 Includes: PROPHYLAXIS for venous thrombosis, systemic embolization; TREATMENT for venous thrombosis and/or pulmonary embolus.HIGH RISK: Target INR is 2.5-3.5 for patients with mechanical heart valves.[id number] 10:07:00 Test Item Value Reference Range Interpretation Comments ACTIVATED CLOTTING TIME 197 sec TEST ED [address] [facility] [address] ([facility]) (test code = [place] [address]) [id number] 10:07:00 Test Item Value Reference Range Interpretation Comments ACTIVATED CLOTTING TIME 202 sec [address] ED [address] [facility] [address] ([facility]) (test code = [place] [address]) [id number]
[2022-04-26] MEDS ORDERED: HYDROCODONE/APAP 10/325 TAB ONE (11:31)
--- NOTE | 2022-04-26 11:36 | RAD REPORT ---
EXAM DESCRIPTION: RAD - Knee Right 3 View - 04/26/2022 11:19 am CLINICAL HISTORY: PAIN COMPARISON: Knee Right 2 View dated 05/13/2012 FINDINGS: Mild to moderate tricompartmental osteoarthritis is present. No fracture or dislocation se en. Small joint effusion.
--- NOTE | 2022-04-26 12:15 | EDPHYS ---
Physician Documentation [facility] Name: Eddie Isaacs Age: 57 yrs Sex: Male : 1965 Arrival Date: 04/26/2022 Time: 10:37 Bed 12 Private MD: ED Physician Yaniv Cruz HPI: 04/26 12:12 This 57 yrs old Male presents to ER via Ambulatory with complaints of Knee Pain. kb 12:12 The patient presents with decreased range of motion, pain. The complaints affect the kb right knee. Context: The problem was sustained at home, the patient can fully bear weight, the patient is able to ambulate, Problem is a result from a previous injury: Yes. Onset: The symptoms/episode began/occurred yesterday. Modifying factors: The symptoms are alleviated by nothing. the symptoms are aggravated by movement, weight bearing, bending knee. Associated signs and symptoms: The patient has no apparent associated signs or symptoms. Treatment prior to arrival includes: no previous treatment. Severity of symptoms: At their worst the symptoms were moderate, in the emergency department the symptoms are unchanged. The patient has not experienced similar symptoms in the past. The patient has not recently seen a physician. Pt reports pain to right knee that started after bending down a lot working on something. States he stood up and felt the pain. Reports 5 previous surgeries to right knee. . 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 - Social history:: Smoking status: Patient reports the use of cigarette tobacco products, smokes one-half pack cigarettes per day. ROS: 12:11 Constitutional: Negative for fever, chills, and weight loss. kb 12:11 MS/extremity: Positive for pain, of the right knee. 12:11 All other systems are negative. Exam: 12:11 Constitutional: This is a well developed, well nourished patient who is awake, alert, kb and in no acute distress. Head/Face: Normocephalic, atraumatic. ENT: Moist Mucous membranes Cardiovascular: Regular rate and rhythm with a normal S1 and S2. No gallops, murmurs, or rubs. No pulse deficits. Respiratory: Respirations even and unlabored. No increased work of breathing. Talking in full sentences Abdomen/GI: Soft, non-tender. No distention Skin: Warm, dry with normal turgor. Normal color. Neuro: Awake and alert, GCS 15, oriented to person, place, time, and situation. Moves all extremities. Normal gait. Psych: Awake, alert, with orientation to person, place and time. Behavior, mood, and affect are within normal limits. 12:11 Musculoskeletal/extremity: Extremities: grossly normal except: noted in the right knee: decreased ROM, pain, ROM: limited active range of motion due to pain, in the right knee, Circulation is intact in all extremities. Sensation intact. Weight bearing: able to fully bear weight. Vital Signs: 10:53 Pulse 79; Resp 16; Temp 98.2(TE); Pulse Ox 100% on R/A; Height 5 ft. 11 in. (180.34 ss cm); Pain 9/10; 10:55 BP 106 / 81; ss MDM: 10:45 Patient medically screened. kb 12:10 Data reviewed: vital signs, nurses notes. Data interpreted: Pulse oximetry: on room air kb is 100 %. Interpretation: normal. Counseling: I had a detailed discussion with the patient and/or guardian regarding: the historical points, exam findings, and any diagnostic results supporting the discharge/admit diagnosis, radiology results, the need for outpatient follow up, a family practitioner, to return to the emergency department if symptoms worsen or persist or if there are any questions or concerns that arise at home. 04/26 10:45 Order name: Knee Right 3 View XRAY; Complete Time: 11:42 kb 04/26 12:06 Order name: Tim Wrap; Complete Time: 12:14 kb 04/26 12:06 Order name: Crutches; Complete Time: 12:14 kb Administered Medications: 11:31 Drug: [place] (HYDROcodone-acetaminophen) 10 mg-325 mg 1 tabs Route: PO; ss 12:14 Follow up: Response: No adverse reaction ss Disposition Summary: 04/26/22 12:14 Discharge Ordered Location: Home kb Condition: Stable kb Diagnosis - Pain in right knee kb Followup: kb - With: Emergency Department - When: As needed - Reason: Worsening of condition Followup: kb - With: Private Physician - When: 2 - 3 days - Reason: Recheck today's complaints, Continuance of care, Re-evaluation by your physician Discharge Instructions: - Discharge Summary Sheet kb - Knee Sprain, Adult, [id number] kb - Acute Knee Pain, Adult, [id number] kb Forms: - Medication Reconciliation Form kb - Thank You Letter kb - Antibiotic Education kb - Prescription Opioid Use kb Signatures: Dispatcher [employer] Lizy Butler FNP-C FNP-Vidhi Faye, RN RN ss
--- NOTE | 2022-04-26 12:15 | ER ---
Nurse's Notes [facility] Name: Eddie Isaacs Age: 57 yrs Sex: Male : 1965 Arrival Date: 04/26/2022 Time: 10:37 Bed 12 Private MD: Diagnosis: Pain in right knee Presentation: 04/26 10:53 Chief complaint: Patient states: R knee pain after bending yesterday. Coronavirus ss screen: Client denies travel out of the [place] in the last 14 days. Ebola Screen: Patient denies exposure to infectious person. Patient denies travel to an Ebola-affected area in the 21 days before illness onset. Initial Sepsis Screen: Does the patient meet any 2 criteria? No. Patient's initial sepsis screen is negative. Does the patient have a suspected source of infection? No. Patient's initial sepsis screen is negative. Risk Assessment: Do you want to hurt yourself or someone else? Patient reports no desire to harm self or others. Onset of symptoms was April 25, 2022. 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 - Social history:: Smoking status: Patient reports the use of cigarette tobacco products, smokes one-half pack cigarettes per day. Screenin:15 [facility] ED Fall Risk Assessment (Adult) History of falling in the last 3 months, ss including since admission No falls in past 3 months (0 pts) Confusion or Disorientation No (0 pts) Intoxicated or Sedated No (0 pts) Impaired Gait No (0 pts) Mobility Assist Device Used No (0 pt) Altered Elimination No (0 pt) Score/Fall Risk Level 0 - 2 = Low Risk. Abuse screen: Denies threats or abuse. Denies injuries from another. Nutritional screening: No deficits noted. Tuberculosis screening: Never had TB. Assessment: 12:15 Reassessment: Patient appears in no apparent distress at this time. Patient is alert, ss oriented x 3, equal unlabored respirations, skin warm/dry/pink. Vital Signs: 10:53 Pulse 79; Resp 16; Temp 98.2(TE); Pulse Ox 100% on R/A; Height 5 ft. 11 in. (180.34 ss cm); Pain 9/10; 10:55 BP 106 / 81; ss ED Course: 10:37 Patient arrived in ED. rg4 10:41 Lizy Johnson FNP-C is [facility]. kb 10:41 Yaniv Cruz MD is Attending Physician. kb 10:55 Triage completed. ss 10:55 Arm band placed on right wrist. ss 11:21 Knee Right 3 View XRAY In Process Unspecified. EDMS 11:31 Vidhi Lemon RN is Primary Nurse. ss 12:15 Patient has correct armband on for positive identification. Bed in low position. ss 12:15 No provider procedures requiring assistance completed. Patient did not have IV access ss during this emergency room visit. 12:30 Crutch training done. Tim wrap to right knee. ss Administered Medications: 11:31 Drug: [place] (HYDROcodone-acetaminophen) 10 mg-325 mg 1 tabs Route: PO; ss 12:14 Follow up: Response: No adverse reaction ss Medication: 12:15 VIS not applicable for this client. ss Outcome: 12:14 Discharge ordered by . kb 12:30 Discharged to home ambulatory, with crutches. ss 12:30 Condition: good 12:30 Discharge instructions given to patient, Instructed on discharge instructions, follow up and referral plans. Demonstrated understanding of instructions, follow-up care. 12:31 Patient left the ED. ss Signatures: Dispatcher [employer] EDMS Lizy Johnson FNP-C FNP-Vidhi Faye RN RN Lilliam Jones rg4
[2022-04-26 12:45] VITALS: TEMP 98.2; O2SAT 100
[2022-04-26 12:46] VITALS: BP 106/81
== END 2022-04-26 12:31 | disposition home or self-care (01) ==
LOC: ER 10:32
DX: M25.561 Pain in right knee (principal); I10 Essential (primary) hypertension; F17.210 Nicotine dependence, cigarettes, uncomplicated; Z95.818 Presence of other cardiac implants and grafts; Z95.810 Presence of automatic (implantable) cardiac defibrillator
CPT/HCPCS: 99283